=== PATIENT | male | born 1980 | race American Indian/Alaskan Native ===

== ENCOUNTER 2017-01-04 08:26 | Outpatient (CLI) | payer BC ==
[2017-01-04] MEDS ORDERED: XYLOCAINE TOPICAL 4% TP ONE ×2 (09:08→15:01)
== END 2017-01-04 08:27 | disposition home or self-care (01) ==
LOC: WOUND 08:26
PROVIDERS: ATTEND Podiatrist
DX: T25.332A Burn of third degree of left toe(s) (nail), initial encounter (principal); E11.621 Type 2 diabetes mellitus with foot ulcer; L97.522 Non-pressure chronic ulcer of other part of left foot with fat layer exposed; E11.40 Type 2 diabetes mellitus with diabetic neuropathy, unspecified; K21.9 Gastro-esophageal reflux disease without esophagitis; E11.22 Type 2 diabetes mellitus with diabetic chronic kidney disease; I12.0 Hypertensive chronic kidney disease with stage 5 chronic kidney disease or end stage renal disease; N18.6 End stage renal disease; Z99.2 Dependence on renal dialysis; Z86.73 Personal history of transient ischemic attack (TIA), and cerebral infarction without residual deficits; X08.8XXA Exposure to other specified smoke, fire and flames, initial encounter; Y93.9 Activity, unspecified; Y92.9 Unspecified place or not applicable; Y99.9 Unspecified external cause status
CPT/HCPCS: 11042; 87075; 87076; 87116; 87186; G0463; 99205

== ENCOUNTER 2017-01-20 08:01 | Day surgery (SDC) | payer BC ==
[2017-01-17 17:33] LABS: Hematocrit 26.3 % (35.5-45.6); Hemoglobin 8.4 gm/dl (11.8-15.2)
== END 2017-01-20 08:02 | disposition home or self-care (01) ==
LOC: OPU 08:01
PROVIDERS: ATTEND Nurse Practitioner Acute Care
DX: D64.9 Anemia, unspecified (principal); Z53.8 Procedure and treatment not carried out for other reasons
CPT/HCPCS: 36415; 85014; 85018; 86850; 86900; 86901; 86920

== ENCOUNTER 2017-01-28 07:58 | Outpatient (CLI) | payer BC ==
[2017-01-28] MEDS ORDERED: XYLOCAINE TOPICAL 4% TP ONE ×2 (08:24→08:35)
== END 2017-01-28 07:59 | disposition home or self-care (01) ==
LOC: WOUND 07:58
PROVIDERS: ATTEND Podiatrist
DX: E11.621 Type 2 diabetes mellitus with foot ulcer (principal); L97.522 Non-pressure chronic ulcer of other part of left foot with fat layer exposed; L97.523 Non-pressure chronic ulcer of other part of left foot with necrosis of muscle; I96 Gangrene, not elsewhere classified; I10 Essential (primary) hypertension; K21.9 Gastro-esophageal reflux disease without esophagitis; E11.22 Type 2 diabetes mellitus with diabetic chronic kidney disease; I12.0 Hypertensive chronic kidney disease with stage 5 chronic kidney disease or end stage renal disease; N18.6 End stage renal disease; Z99.2 Dependence on renal dialysis; Z89.9 Acquired absence of limb, unspecified; Z86.73 Personal history of transient ischemic attack (TIA), and cerebral infarction without residual deficits
CPT/HCPCS: 97597

== ENCOUNTER 2017-01-30 14:43 | Inpatient (IN) | payer BC ==
[2017-01-30] MEDS ORDERED: ZOFRAN ONE (16:53)
[2017-01-30] MEDS ORDERED: ZOFRAN IV ONE (17:01)
[2017-01-30 17:07] LABS: Basophils % (Auto) 0.6 % (0.0-1.8); Eosinophils % (Auto) 0.2 % (0.0-4.3); Hematocrit 31.4 % (35.5-45.6); Hemoglobin 9.9 gm/dl (11.8-15.2); Mean Corpuscular HGB Conc 32 % (32-34); Mean Corpuscular Hemoglobin 28 pg (28-32); Mean Corpuscular Volume 89 fl (84-94); Platelet Count 239 K/mm3 (140-440); Red Blood Count 3.55 M/mm3 (3.65-5.03); Red Cell Distribution Width 17.3 % (13.2-15.2); White Blood Count 13.7 K/mm3 (4.5-11.0)
[2017-01-30] MEDS ORDERED: APRESOLINE IV ONE (17:24)
[2017-01-30] MEDS ORDERED: DILAUDID IV ONE ×2 (17:24→19:10)
[2017-01-30] MEDS ORDERED: CARAFATE PO ONE (17:24)
[2017-01-30] MEDS ORDERED: BENTYL IM ONE (17:24)
--- NOTE | 2017-01-30 17:25 | Emergency Department Report ---
ED General Adult HPI - General Chief complaint: Abdominal Pain Stated complaint: N/V WEAKNESS Time Seen by Provider: 01/30/17 17:16 Source: patient, RN notes reviewed, old records reviewed Mode of arrival: Stretcher Limitations: No Limitations - History of Present Illness Initial comments: This is a 36-year-old male. He is previously unknown to me. His private certified marine mechanic is this is Dr. Méndez. He typically gets dialysis Tuesday, , Tuesday. His last dialysis session was this past Tuesday. Has a history of hypertension, gastroparesis, diabetes. Also has a history of end-stage renal disease on dialysis. The patient presents to the ER with diffuse abdominal pain, nausea and vomiting. There is no hematemesis, there is no bright red blood per rectum. He denies marijuana consumption. He denies chest pain or shortness of breath. He reports inability to tolerate liquid feeds. No irritative or obstructive urinary symptoms, no testicular pain. Patient reports his symptoms feel like similar prior episodes of gastroparesis. His symptoms typically improve with a medication, nausea medication. -: Gradual Location: abdomen Severity scale (0 -10): 7 Quality: aching Consistency: constant Improves with: medication, rest Worsens with: eating Associated Symptoms: loss of appetite, malaise, nausea/vomiting, weakness - Related Data Home Medications Medication Instructions Recorded Confirmed Last Taken NIFEdipine XL [Procardia Xl] 30 mg PO QDAY 02/23/16 01/30/17 01/12/17 07:00 Insulin Regular, Human [HumuLIN R] 6 unit SQ AC 02/24/16 01/30/17 01/11/17 19:00 3 UNITS Hydralazine HCl [Apresoline TAB] 50 mg PO Q8HR 12/16/16 01/30/17 01/11/17 18:00 ISOSORBIDE MONOnitrate [Imdur ER] 30 mg PO DAILY 12/16/16 01/30/17 01/11/17 18: 00 Insulin Glargine [Lantus VIAL] 40 units SQ QHS 12/16/16 01/30/17 01/11/17 19:00 15UNITS Losartan [Cozaar] 50 mg PO QDAY 12/16/16 01/30/17 01/11/17 12:00 cloNIDine [Clonidine] 1 each TD QWEEK 12/16/16 01/30/17 01/11/17 Vit B Comp&C/Folic Acid/Vit D3 1 each PO QDAY 01/10/17 01/30/17 01/11/17 [Dialyvite 800 Plus D Wafer] Previous Rx's Medication Instructions Recorded Last Taken Type Carvedilol [Coreg] 12.5 mg PO BID #60 tablet 12/21/16 01/12/17 07:00 Rx oxyCODONE /ACETAMINOPHEN [Percocet 1 - 2 tab PO Q4HR #40 tab 01/12/17 Unknown Rx 5/325] Allergies Allergy/AdvReac Type Severity Reaction Status Date / Time No Known Allergies Allergy Verified 11/11/15 14:13 ED Review of Systems ROS: Stated complaint: N/V WEAKNESS Other details as noted in HPI Constitutional: malaise. denies: fever Eyes: denies: vision change ENT: denies: epistaxis Respiratory: denies: cough Cardiovascular: denies: chest pain Gastrointestinal: abdominal pain, nausea, vomiting Genitourinary: denies: urgency, dysuria, frequency Musculoskeletal: denies: back pain Skin: denies: lesions Neurological: denies: weakness ED Past Medical Hx - Past Medical History Hx Hypertension: Yes (Coreg ) Hx CVA: Yes (TIA's) Hx Heart Attack/AMI: Yes Hx Congestive Heart Failure: No Hx Diabetes: Yes Hx Deep Vein Thrombosis: No Hx Pulmonary Embolism: No Hx GERD: No Hx Liver Disease: No Hx Renal Disease: Yes (last dialysis 06/12/17) Hx Arthritis: No Hx Headaches / Migraines: No Hx Seizures: No Hx Kidney Stones: No Hx Psychiatric Treatment: No Hx Asthma: No Hx COPD: No Hx Tuberculosis: No Hx Dementia: No Hx HIV: No Additional medical history: gastroparesis - Surgical History Hx Coronary Stent: No Hx Open Heart Surgery: No Hx Pacemaker: No Hx Internal Defibrillator: No Hx Cholecystectomy: No Hx Appendectomy: No Hx Breast Surgery: No Additional Surgical History: left eye surgery, right toe amputation, right chest vas cath - Social History Smoking Status: Never Smoker Substance Use Type: None - Medications Home Medications: Home Medications Medication Instructions Recorded Confirmed Last Taken Type NIFEdipine XL [Procardia Xl] 30 mg PO QDAY 02/23/16 01/30/17 01/12/17 07:00 History Insulin Regular, Human [HumuLIN R] 6 unit SQ AC 02/24/16 01/30/17 01/11/17 19: 00 History 3 UNITS Hydralazine HCl [Apresoline TAB] 50 mg PO Q8HR 12/16/16 01/30/17 01/11/17 18:00 History ISOSORBIDE MONOnitrate [Imdur ER] 30 mg PO DAILY 12/16/16 01/30/17 01/11/17 18: 00 History Insulin Glargine [Lantus VIAL] 40 units SQ QHS 12/16/16 01/30/17 01/11/17 19:00 History 15UNITS Losartan [Cozaar] 50 mg PO QDAY 12/16/16 01/30/17 01/11/17 12:00 History cloNIDine [Clonidine] 1 each TD QWEEK 12/16/16 01/30/17 01/11/17 History Carvedilol [Coreg] 12.5 mg PO BID #60 tablet 12/21/16 01/30/17 01/12/17 07:00 Rx Vit B Comp&C/Folic Acid/Vit D3 1 each PO QDAY 01/10/17 01/30/17 01/11/17 History [Dialyvite 800 Plus D Wafer] oxyCODONE /ACETAMINOPHEN [Percocet 1 - 2 tab PO Q4HR #40 tab 01/12/17 01/30/17 Unknown Rx 5/325] ED Physical Exam - General Limitations: No Limitations General appearance: alert, in no apparent distress - Head Head exam: Present: atraumatic, normocephalic - Eye Eye exam: Present: normal appearance, EOMI. Absent: nystagmus - ENT ENT exam: Present: normal exam, normal orophraynx, mucous membranes moist, normal external ear exam - Neck Neck exam: Present: normal inspection, full ROM. Absent: tenderness, meningismus - Respiratory Respiratory exam: Present: normal lung sounds bilaterally. Absent: respiratory distress, wheezes, rales, rhonchi, stridor, decreased breath sounds - Cardiovascular Cardiovascular Exam: Present: regular rate, normal rhythm, normal heart sounds. Absent: bradycardia, tachycardia, irregular rhythm, systolic murmur, diastolic murmur, rubs, gallop - GI/Abdominal GI/Abdominal exam: Present: soft, tenderness, normal bowel sounds, other (mild diffuse abdominal tenderness. There is no rebound, guarding or peritoneal signs.). Absent: distended, guarding, rebound, rigid, pulsatile mass - Rectal Rectal exam: Present: deferred - Extremities Exam Extremities exam: Present: full ROM, other (she has chronic necrotic wounds noted to left lower extremity. There is no pus, streaking or cellulitis.). Absent: tenderness, pedal edema, joint swelling, calf tenderness - Back Exam Back exam: Present: normal inspection, full ROM. Absent: tenderness, CVA tenderness (R), CVA tenderness (L), muscle spasm, paraspinal tenderness, vertebral tenderness - Neurological Exam Neurological exam: Present: alert, oriented X3, other (Extraocular movements intact. Tongue midline. No facial droop. Facial sensation intact to light touch in the V1, V2, V3 distribution bilaterally. 5 and 5 strength in 4 extremities.. Sensation is intact to light touch in 4 extremities.). Absent: motor sensory deficit - Psychiatric Psychiatric exam: Present: normal affect, normal mood - Skin Skin exam: Present: warm, dry, intact, normal color. Absent: rash ED Course Vital Signs 01/30/17 01/30/17 01/30/17 16:09 17:03 17:55 Temperature 98.7 F Pulse Rate 100 H 102 H 101 H Respiratory 22 20 Rate Blood Pressure 205/123 184/118 Blood Pressure 204/117 [Left] O2 Sat by Pulse 100 99 Oximetry 01/30/17 19:11 Temperature Pulse Rate 114 H Respiratory 20 Rate Blood Pressure Blood Pressure 184/109 [Left] O2 Sat by Pulse 99 Oximetry - Reevaluation(s) Reevaluation #1: 01/30/17 18:45 Differential diagnosis: Electrolyte imbalance, gastroparesis exacerbation, pancreatitis, hyperglycemia, diabetic ketoacidosis, end-stage renal disease on dialysis, electrolyte arrangement, hypertensive urgency assessment and plan: 36-year-old male with known history of gastroparesis, with probable clinical gastroparesis flare/exacerbation. He is afebrile and quite hypertensive. He was given 2 rounds of nausea medication, one round of pain medication, 1 round of hypertensive medication. He still nauseous and vomiting, and having difficulty tolerating liquid feeds. I will page out to his covering certified marine mechanic to follow to arrange dialysis tomorrow. Patient will require admission for IV fluids, IV antiemetic medication, blood pressure control, and dialysis. 01/30/17 18:45 Reevaluation #2: 01/30/17 18:57 case d/w Dr Méndez, who will follow to arrange dialysis Reevaluation #3: 01/30/17 19:52 Dr Sabillon accepts patient to his service ED Medical Decision Making - Lab Data Result diagrams: 01/30/17 16:56 01/30/17 16:56 Vital Signs 01/30/17 01/30/17 01/30/17 16:09 17:03 17:55 Temperature 98.7 F Pulse Rate 100 H 102 H 101 H Respiratory 22 20 Rate Blood Pressure 205/123 184/118 Blood Pressure 204/117 [Left] O2 Sat by Pulse 100 99 Oximetry Vital Signs 01/30/17 01/30/17 01/30/17 16:09 17:03 17:55 Temperature 98.7 F Pulse Rate 100 H 102 H 101 H Respiratory 22 20 Rate Blood Pressure 205/123 184/118 Blood Pressure 204/117 [Left] O2 Sat by Pulse 100 99 Oximetry Critical care attestation.: If time is entered above; I have spent that time in minutes in the direct care of this critically ill patient, excluding procedure time. ED Disposition Clinical Impression: Accelerated hypertension, Gastroparesis due to DM, ESRD (end stage renal disease), Gastroparesis Disposition: OP ADMITTED IP TO THIS HOSP Is pt being admited?: Yes Does the pt Need Aspirin: No Condition: Good Instructions: Diabetes Mellitus Type 2 in Adults (ED), Hypertension (ED) Referrals: PRIMARY CARE, [Primary Care Provider] - 3-5 Days
[2017-01-30 17:39] LABS: Albumin 3.9 g/dL (3.9-5); Albumin/Globulin Ratio 0.9 %; BUN/Creatinine Ratio 3.93; Bilirubin,Total 0.3 mg/dL (0.1-1.2); Calcium 8.2 mg/dL (8.4-10.2); Chloride 98.4 mmol/L (98-107); Potassium 3.8 mmol/L (3.6-5.0); Total Protein 8.2 g/dL (6.3-8.2)
[2017-01-30] MEDS ORDERED: REGLAN IV ONE (18:27)
[2017-01-30] MEDS ORDERED: PHENERGAN PR ONE ×2 (20:24→20:30)
[2017-01-30] MEDS ORDERED: APRESOLINE ONE (20:38)
[2017-01-30] MEDS ORDERED: MILK OF MAGNESIA PO PRN (22:03)
[2017-01-30] MEDS ORDERED: DULCOLAX PR PRN (22:03)
[2017-01-30] MEDS ORDERED: ZOFRAN IV PRN (22:03)
[2017-01-30] MEDS ORDERED: TYLENOL PO PRN (22:03)
[2017-01-30] MEDS ORDERED: PERCOCET 5/325 PO PRN (22:03)
[2017-01-30] MEDS ORDERED: AMBIEN PO PRN (22:03)
--- NOTE | 2017-01-30 22:03 | History and Physical Report ---
History of Present Illness Date of examination: 01/30/17 Date of admission: 01/30/17 19:53 Chief complaint: Vomiting for 2 days History of present illness: 36 y/o AAM with .Pain is about 8 on a scale 1 to 10.No fever chills Hx of ESRD HTN T2DM and gastroparesis comes in for 2 days of vomiting.Vomited about 6 to 8 times yesterday and 4 times today.Also has moderate to severe abdominal pain Pain is 8 on a scale of 1 to 10.No fever or chills.No sob.No recent travel.Exacerbated by po intake.Relieved bu avoiding food.No recent drugs. Past History Past Medical History: CAD, diabetes, ESRD, GERD, hypertension, other ( Gastroparesis) Past Surgical History: Other (Toe surgery,Rt chest vas cath eye surgery) Social history: lives with family, smoking Family history: hypertension Medications and Allergies Allergies Allergy/AdvReac Type Severity Reaction Status Date / Time No Known Allergies Allergy Verified 11/11/15 14:13 Home Medications Medication Instructions Recorded Confirmed Last Taken Type NIFEdipine XL [Procardia Xl] 30 mg PO QDAY 02/23/16 01/30/17 01/12/17 07:00 History Insulin Regular, Human [HumuLIN R] 6 unit SQ AC 02/24/16 01/30/17 01/11/17 19: 00 History 3 UNITS Hydralazine HCl [Apresoline TAB] 50 mg PO Q8HR 12/16/16 01/30/17 01/11/17 18:00 History ISOSORBIDE MONOnitrate [Imdur ER] 30 mg PO DAILY 12/16/16 01/30/17 01/11/17 18: 00 History Insulin Glargine [Lantus VIAL] 40 units SQ QHS 12/16/16 01/30/17 01/11/17 19:00 History 15UNITS Losartan [Cozaar] 50 mg PO QDAY 12/16/16 01/30/17 01/11/17 12:00 History cloNIDine [Clonidine] 1 each TD QWEEK 12/16/16 01/30/17 01/11/17 History Carvedilol [Coreg] 12.5 mg PO BID #60 tablet 12/21/16 01/30/17 01/12/17 07:00 Rx Vit B Comp&C/Folic Acid/Vit D3 1 each PO QDAY 01/10/17 01/30/17 01/11/17 History [Dialyvite 800 Plus D Wafer] oxyCODONE /ACETAMINOPHEN [Percocet 1 - 2 tab PO Q4HR #40 tab 01/12/17 01/30/17 Unknown Rx 5/325] Review of Systems All systems: negative Constitutional: no weight loss, no weight gain, no fever, no chills Ears, nose, mouth and throat: no nasal congestion, no nasal discharge, no hoarseness, no sore throat Cardiovascular: no chest pain, no orthopnea, no palpitations, no rapid/ irregular heart beat, no edema, no syncope, no lightheadedness, no shortness of breath Respiratory: no cough with sputum, no excessive sputum, no congestion, no wheezing Gastrointestinal: abdominal pain, nausea, vomiting, no diarrhea, no constipation , no change in bowel habits, no hematemesis, no coffee ground emesis, no BRBPR, no melena Genitourinary Male: no dysuria, no hematuria, no flank pain, no discharge, no urinary frequency, no urinary hesitancy Musculoskeletal: no neck stiffness, no neck pain, no muscle weakness, no muscle cramps Integumentary: no rash, no pruritis, no redness, no sores, no wounds, no jaundice Neurological: no paralysis, no seizures, no syncope Psychiatric: no anxiety, no disorientation, no depression Endocrine: no cold intolerance, no heat intolerance, no polyphagia, no excessive thirst, no polydipsia, no polyuria, no nocturia, no excessive sweating Hematologic/Lymphatic: no easy bruising, no easy bleeding Allergic/Immunologic: no urticaria, no allergic rhinitis, no wheezing Exam - Physical Exam Narrative exam: Well developed well nourished male in slight distress sec to abdominal pain - Constitutional Vitals: Temp Pulse Resp BP Pulse Ox 98.7 F 114 H 20 184/109 99 01/30/17 16:09 01/30/17 19:11 01/30/17 20:21 01/30/17 19:11 01/30/17 19:11 General appearance: Present: no acute distress, well-nourished - EENT Eyes: Present: PERRL ENT: hearing intact, clear oral mucosa - Neck Neck: Present: supple, normal ROM - Respiratory Respiratory effort: normal Respiratory: bilateral: CTA - Cardiovascular Heart rate: 80 Rhythm: regular Heart Sounds: Present: S1 & S2. Absent: rub, click - Extremities Extremities: pulses symmetrical, No edema Peripheral Pulses: within normal limits - Abdominal General gastrointestinal: Present: soft, non-tender, non-distended, normal bowel sounds Localized gastrointestinal: tender: epigastric periumbilical (No guardig/ rebound tenderness) Male genitourinary: Present: normal - Rectal Rectal Exam: deferred - Integumentary Integumentary: Present: clear, warm, dry - Musculoskeletal Musculoskeletal: gait normal, strength equal bilaterally - Psychiatric Psychiatric: appropriate mood/affect, intact judgment & insight - Neurologic Neurologic: CNII-XII intact, moves all extremities - Allied Health Allied health notes reviewed: nursing, case management Results - Labs CBC & Chem 7: 01/31/17 05:23 01/31/17 05:23 Labs: Laboratory Last Values WBC 13.7 K/mm3 (4.5-11.0) H 01/30/17 16:56 RBC 3.55 M/mm3 (3.65-5.03) L 01/30/17 16:56 Hgb 9.9 gm/dl (11.8-15.2) L 01/30/17 16:56 Hct 31.4 % (35.5-45.6) L 01/30/17 16:56 MCV 89 fl (84-94) 01/30/17 16:56 MCH 28 pg (28-32) 01/30/17 16:56 MCHC 32 % (32-34) 01/30/17 16:56 RDW 17.3 % (13.2-15.2) H 01/30/17 16:56 Plt Count 239 K/mm3 (140-440) 01/30/17 16:56 Lymph % (Auto) 8.8 % (13.4-35.0) L 01/30/17 16:56 [place] % (Auto) 5.2 % (0.0-7.3) 01/30/17 16:56 Eos % (Auto) 0.2 % (0.0-4.3) 01/30/17 16:56 Baso % (Auto) 0.6 % (0.0-1.8) 01/30/17 16:56 Lymph # 1.2 K/mm3 (1.2-5.4) 01/30/17 16:56 [place] # 0.7 K/mm3 (0.0-0.8) 01/30/17 16:56 Eos # 0.0 K/mm3 (0.0-0.4) 01/30/17 16:56 Baso # 0.1 K/mm3 (0.0-0.1) 01/30/17 16:56 Seg Neutrophils % 85.2 % (40.0-70.0) H 01/30/17 16:56 Seg Neutrophils # 11.7 K/mm3 (1.8-7.7) H 01/30/17 16:56 Sodium 139 mmol/L (137-145) 01/30/17 16:56 Potassium 3.8 mmol/L (3.6-5.0) 01/30/17 16:56 Chloride 98.4 mmol/L (98-107) 01/30/17 16:56 Carbon Dioxide 21 mmol/L (22-30) L 01/30/17 16:56 Anion Gap 23 mmol/L 01/30/17 16:56 BUN 26 mg/dL (9-20) H 01/30/17 16:56 Creatinine 6.6 mg/dL (0.8-1.5) H 01/30/17 16:56 Estimated GFR 12 ml/min 01/30/17 16:56 BUN/Creatinine Ratio 3.93 % 01/30/17 16:56 Glucose 143 mg/dL (75-100) H 01/30/17 16:56 Calcium 8.2 mg/dL (8.4-10.2) L 01/30/17 16:56 Total Bilirubin 0.3 mg/dL (0.1-1.2) 01/30/17 16:56 AST 19 units/L (5-40) 01/30/17 16:56 ALT 9 units/L (7-56) 01/30/17 16:56 Alkaline Phosphatase 92 units/L (35-129) 01/30/17 16:56 Total Protein 8.2 g/dL (6.3-8.2) 01/30/17 16:56 Albumin 3.9 g/dL (3.9-5) 01/30/17 16:56 Albumin/Globulin Ratio 0.9 % 01/30/17 16:56 Lipase 35 units/L (13-60) 01/30/17 16:56 Short CBC 01/30/17 01/31/17 Range/Units 16:56 05:23 WBC 13.7 H 13.9 H (4.5-11.0) K/mm3 Hgb 9.9 L 8.9 L (11.8-15.2) gm/dl Hct 31.4 L 28.1 L (35.5-45.6) % Plt Count 239 234 (140-440) K/mm3 BMP 01/30/17 01/31/17 16:56 05:23 Sodium 139 142 Potassium 3.8 4.1 Chloride 98.4 101.2 Carbon Dioxide 21 L 19 L BUN 26 H 34 H Creatinine 6.6 H 7.8 H Glucose 143 H 227 H Calcium 8.2 L 7.6 L Liver Function 01/30/17 01/31/17 Range/Units 16:56 05:23 Total Bilirubin 0.3 0.3 (0.1-1.2) mg/dL AST 19 17 (5-40) units/L ALT 9 8 (7-56) units/L Alkaline Phosphatase 92 82 (35-129) units/L Albumin 3.9 3.3 L (3.9-5) g/dL - Imaging and Cardiology EKG: report reviewed Assessment and Plan Advance Directives: Yes (Full code) VTE prophylaxis?: Chemical Plan of care discussed with patient/family: Yes - Patient Problems (1) Hypertensive emergency Current Visit: Yes Status: Acute Plan to address problem: Cont his Home meds and Hydralazine 10 mg q3 prn IV. Sec to abd pain and vomiting. (2) Gastroparesis Current Visit: Yes Status: Acute Plan to address problem: Cont Zofran and reglan (3) IDDM (insulin dependent diabetes mellitus) Current Visit: Yes Status: Chronic Plan to address problem: Cont lantus and coverage (4) ESRD (end stage renal disease) Current Visit: Yes Status: Chronic Plan to address problem: Cont HD.Nephrology consulted (5) HTN (hypertension) Current Visit: Yes Status: Chronic Qualifiers: Hypertension type: essential hypertension Qualified Code(s): I10 - Essential (primary) hypertension Plan to address problem: REsume Home meds (6) GERD (gastroesophageal reflux disease) Current Visit: Yes Status: Chronic Qualifiers: Esophagitis presence: with esophagitis Qualified Code(s): K21.0 - Gastro- esophageal reflux disease with esophagitis Plan to address problem: Cont PPi's (7) Anemia Current Visit: Yes Status: Chronic Qualifiers: Anemia type: A Iron deficiency anemia type: I Vitamin B12 deficiency anemia type: V Folate deficiency anemia type: F Bone marrow failure anemia type: B Hemolytic anemia type: H Other causes of anemia: chronic disease, kidney Qualified Code(s): N18.9 - Chronic kidney disease, unspecified; D63.1 - Anemia in chronic kidney disease Plan to address problem: Anemia of chronic disease (8) DVT prophylaxis Current Visit: Yes Status: Acute Plan to address problem: On Heparin
[2017-01-30] MEDS ORDERED: D5NS 1,000 ML IV SCH (23:00)
[2017-01-31] MEDS ORDERED: APRESOLINE IV PRN (01:19)
[2017-01-31] MEDS: ZOFRAN IV PRN ×3 (01:35→16:15)
[2017-01-31] MEDS: DILAUDID IV PRN ×4 (02:18→21:35)
[2017-01-31 06:33] LABS: Hematocrit 28.1 % (35.5-45.6); Hemoglobin 8.9 gm/dl (11.8-15.2); Mean Corpuscular HGB Conc 32 % (32-34); Mean Corpuscular Hemoglobin 28 pg (28-32); Mean Corpuscular Volume 89 fl (84-94); Platelet Count 234 K/mm3 (140-440); Red Blood Count 3.17 M/mm3 (3.65-5.03); Red Cell Distribution Width 17.2 % (13.2-15.2); White Blood Count 13.9 K/mm3 (4.5-11.0)
[2017-01-31 06:45] LABS: Albumin 3.3 g/dL (3.9-5); Albumin/Globulin Ratio 0.9 %; BUN/Creatinine Ratio 4.35; Bilirubin,Total 0.3 mg/dL (0.1-1.2); Calcium 7.6 mg/dL (8.4-10.2); Chloride 101.2 mmol/L (98-107); Potassium 4.1 mmol/L (3.6-5.0); Total Protein 7.1 g/dL (6.3-8.2)
[2017-01-31] MEDS ORDERED: NON-FORMULARY (Hydralazine Hcl [Apresoline Tab] 50 MG) PO SCH (07:30)
[2017-01-31] MEDS ORDERED: NOVOLOG SUB-Q SCH (07:30)
[2017-01-31 08:06] LABS: Basophils % (Manual) 0 % (0.0-1.8); Blastocytes % (Manual) 0 %; Eosinophils % (Manual) 0 % (0.0-4.3); Hypochromasia Few; Ovalocytes Few
[2017-01-31 08:07] LABS: Diff Status Complete
--- NOTE | 2017-01-31 08:24 | Admit Criteria Form ---
Admission Criteria Documentation: HYPERTENSION Clinical Indications for Admission to Inpatient Care ( Place "X" for any and all applicable criteria): Admission is indicated for ANY ONE of the following(1)(2)(3)(4): [ ]I. Hypertensive emergency, with evidence of acute and progressing target organ disease as indicated by ANY ONE of the following: [ ]a) Hypertensive encephalopathy (eg, confusion, altered mental status) [ ]b) Cerebral infarction [ ]c) Intracranial hemorrhage [ ]d) Myocardial ischemia or infarction [ ]e) Pulmonary edema [ ]f) Aortic dissection [ ]g) Seizure [ ]h) Acute renal insufficiency [ ]i) Papilledema [ ]j) Microangiopathic hemolytic anemia [ ]II. Adrenergic crisis (eg, severe hypertension due to pheochromocytoma crisis, cocaine or amphetamine intoxication, or clonidine withdrawal) [X]III. Severe hypertension (SBP greater than 180 mmHg or DBP greater than 110 mmHg or greater than the 95th percentile for age, gender, and height in pediatric patients) that cannot be controlled (eg, to SBP less than 160 mmHg and DBP less than 100 mmHg in adults) by treatment with oral medication in emergency department or observation care Extended stay beyond goal length of stay may be needed for(11)(12)(13): [ ]a) Persistent hypertensive encephalopathy [ ]b) Continuation of pulmonary edema [ ]c) Recurring or persistent severe hypertension [ ]d) Target organ damage (eg, angina, stroke, aortic dissection) [ ]e) Associated renal insufficiency The original [employer] content created by [employer] has been revised. The portions of the content which have been revised are identified through the use of italic text or in bold, and [facility] has neither reviewed nor approved the modified material. All other unmodified content is copyright [employer] [facility]. Please see references footnoted in the original [employer] [facility] edition 2016 Admission Criteria Met: Yes
[2017-01-31] MEDS ORDERED: COREG PO SCH (10:00)
[2017-01-31] MEDS ORDERED: NON-FORMULARY (Vit B Comp&C/Folic Acid/Vit D3 [Dialyvite 800 Plus D Wafer] 1 EACH) PO SCH (10:00)
[2017-01-31] MEDS ORDERED: CATAPRES-TTS PATCH TD SCH (10:00)
[2017-01-31] MEDS: LOVENOX SUB-Q SCH (10:21)
[2017-01-31] MEDS ORDERED: NACL 0.9% 100 ML IV PRN (10:30)
--- NOTE | 2017-01-31 10:30 | Consultation ---
History of Present Illness - History of Present Illness Thanks for the consult A/P ESRD Accel HTN Gastroparesis flare On opiates Anemia FRED with HD if SBP under 160 DM long standing poorly controlled Adjust BP meds Will follow Past History Past Medical History: CAD, diabetes, ESRD, GERD, hypertension, other ( Gastroparesis) Past Surgical History: Other (Toe surgery,Rt chest vas cath eye surgery) Social history: lives with family, smoking Family history: hypertension Medications and Allergies Allergies Allergy/AdvReac Type Severity Reaction Status Date / Time No Known Allergies Allergy Verified 11/11/15 14:13 Home Medications Medication Instructions Recorded Confirmed Last Taken Type NIFEdipine XL [Procardia Xl] 30 mg PO QDAY 02/23/16 01/30/17 01/12/17 07:00 History Insulin Regular, Human [HumuLIN R] 6 unit SQ AC 02/24/16 01/30/17 01/11/17 19: 00 History 3 UNITS Hydralazine HCl [Apresoline TAB] 50 mg PO Q8HR 12/16/16 01/30/17 01/11/17 18:00 History ISOSORBIDE MONOnitrate [Imdur ER] 30 mg PO DAILY 12/16/16 01/30/17 01/11/17 18: 00 History Insulin Glargine [Lantus VIAL] 40 units SQ QHS 12/16/16 01/30/17 01/11/17 19:00 History 15UNITS Losartan [Cozaar] 50 mg PO QDAY 12/16/16 01/30/17 01/11/17 12:00 History cloNIDine [Clonidine] 1 each TD QWEEK 12/16/16 01/30/17 01/11/17 History Carvedilol [Coreg] 12.5 mg PO BID #60 tablet 12/21/16 01/30/17 01/12/17 07:00 Rx Vit B Comp&C/Folic Acid/Vit D3 1 each PO QDAY 01/10/17 01/30/17 01/11/17 History [Dialyvite 800 Plus D Wafer] oxyCODONE /ACETAMINOPHEN [Percocet 1 - 2 tab PO Q4HR #40 tab 01/12/17 01/30/17 Unknown Rx 5/325] Active Meds: Active Medications Acetaminophen (Tylenol) 650 mg PO Q4H PRN PRN Reason: Pain MILD(1-3)/Fever >100.5/SOARES Bisacodyl (Dulcolax) 10 mg GA QDAY PRN PRN Reason: Constipation unrelieved by MOM Carvedilol (Coreg) 12.5 mg PO BID [facility] Clonidine HCl (Catapres-Tts Patch) mg TD QWEEK [facility] Enoxaparin Sodium (Lovenox) 30 mg SUB-Q QDAY SANDRINE Last Admin: 01/31/17 10:21 Dose: 30 mg Hydralazine HCl (Apresoline) 10 mg IV Q6H PRN PRN Reason: Hypertension Last Admin: 01/30/17 20:37 Dose: 10 mg Hydralazine HCl (Apresoline) 50 mg PO Q8HR SANDRINE Hydromorphone HCl (Dilaudid) 1 mg IV Q3H PRN PRN Reason: Pain , Severe (7-10) Last Admin: 01/31/17 06:57 Dose: 1 mg Insulin Aspart (Novolog) 0 units SUB-Q ACHS SANDRINE PRN Reason: Protocol Last Admin: 01/31/17 08:32 Dose: 2 units Insulin Detemir (Levemir) 40 units SUB-Q QHS [facility] Isosorbide Mononitrate (Imdur) 30 mg PO DAILY [facility] Losartan Potassium (Cozaar) 50 mg PO QDAY [facility] Magnesium Hydroxide (Milk Of Magnesia) 30 ml PO Q4H PRN PRN Reason: Constipation Metoclopramide HCl (Reglan) 10 mg IV Q6H PRN PRN Reason: Nausea And Vomiting Nifedipine (Procardia Xl) 30 mg PO QDAY [facility] Ondansetron HCl (Zofran) 4 mg IV Q3H PRN PRN Reason: Nausea And Vomiting Last Admin: 01/31/17 01:35 Dose: 4 mg Oxycodone/Acetaminophen (Percocet 5/325) 1 tab PO Q4HR [facility] Vitamin B Complex/Vitamin C ([place] With C) 1 each PO QDAY [facility] Zolpidem Tartrate (Ambien) 5 mg PO QHS PRN PRN Reason: Insomnia Exam - Vital Signs Vital signs: Vital Signs Temp Pulse Resp BP Pulse Ox 98.7 F 100 H 22 205/123 100 01/30/17 16:09 01/30/17 16:09 01/30/17 16:09 01/30/17 16:09 01/30/17 16:09 Results - Lab Results 01/31/17 05:23 01/31/17 05:23 Most recent lab results Calcium 7.6 mg/dL (8.4-10.2) L 01/31/17 05:23
[2017-01-31] MEDS: PERCOCET 5/325 PO SCH ×3 (10:32→18:45)
[2017-01-31] MEDS: COZAAR PO SCH (10:32)
[2017-01-31] MEDS: IMDUR PO SCH (10:32)
[2017-01-31] MEDS: ALLBEE WITH C PO SCH (10:33)
[2017-01-31] MEDS: PROCARDIA XL PO SCH (10:33)
--- NOTE | 2017-01-31 12:30 | Event Note ---
Date: 01/31/17 This pt is a 36 yo AAM admitted with N/V with suspected gastroparesis. Pt is Afebrile with a leukocytosis of 13.9. Pt known to our service and s/p a RUE AVG placed 01/12/17. We were asked to eval the pt's avg maturity. AVG has been in place approximately 3 weeks, and has s good thrill. Okay to use avg for HD.
[2017-01-31] MEDS ORDERED: APRESOLINE PO SCH (14:00)
--- NOTE | 2017-01-31 14:13 | Progress Note ---
Assessment and Plan Assessment and plan: Patient is a 36-year-old male with a history of end-stage renal disease, hypertension, type 2 diabetes mellitus and gastroparesis with recurrent hospital admissions for abdominal pain and cyclical intractable vomiting. Whenever this occurs his blood pressure start. And becomes very difficult to control. In the past and was started on nortriptyline and did well with a combination of that Reglan. H Presents to the hospital again today with nausea vomiting. 2 days having 6-10 episodes of bilious vomiting. Prior GI workup has been unremarkable. He is s/p a RUE AVG placed 01/12/17 * Hypertensive emergency secondary to poor by mouth intake * End-stage renal disease * Diabetic gastroparesis * Uncontrolled diabetes mellitus insulin-dependent * Chronic opiate use * Anemia secondary to renal disease * Abdominal pain * metabolic acidosis * Leukocytosis likely reactive Plan * Continue current therapy, control blood pressure and pain. We will reinstitute nortriptyline. * Continue blood sugar control * Nephrology and vascular inputs noted in consultation from GI * okay is AVG per vascular * DVT and GI prophylaxis * If Metabolic acidosis is not improving transition to fluids with bicarbonate History Interval history: Follow-up intractable nausea and vomiting Patient seen and examined this morning continues to vomit bilious emesis noted. Reports generalized abdominal pain. Denies any shortness of breath cough dizziness or chest pain. unable to Keep food down for 2 days. Abdominal pain rated as 7/10 intensity with no alleviation. No radiation. No other adverse effects reported to me by nursing staff Hospitalist Physical - Physical exam Narrative exam: VITAL SIGNS: Reviewed. GENERAL: The patient appeared well nourished and normally developed. Vital signs as documented. HEAD: No signs of head trauma. EYES: Pupils are equal. Extraocular motions intact. EARS: Hearing grossly intact. MOUTH: Oropharynx is normal. NECK: No adenopathy, no JVD. CHEST: Chest with clear breath sounds bilaterally. No wheezes, rales, or rhonchi. CARDIAC: Regular rate and rhythm. S1 and S2, without murmurs, gallops, or rubs. VASCULAR: No Edema. Peripheral pulses normal and equal in all extremities. ABDOMEN: Soft, tender. No sign of distention. No rebound or guarding, and no masses palpated. Bowel Sounds normal. MUSCULOSKELETAL: Good range of motion of all major joints. Extremities without clubbing, cyanosis or edema. NEUROLOGIC EXAM: Alert and oriented x 3. No focal sensory or strength deficits. Speech normal. Follows commands. PSYCHIATRIC: Mood normal. SKIN: No rash or lesions. - Constitutional Vitals: Temp Pulse Resp BP Pulse Ox 98.7 F 110 H 20 178/88 95 01/31/17 07:20 01/31/17 07:20 01/31/17 12:53 01/31/17 07:20 01/31/17 07:20 General appearance: Present: no acute distress, well-nourished Results - Labs CBC & Chem 7: 01/31/17 05:23 01/31/17 05:23 Labs: Laboratory Last Values WBC 13.9 K/mm3 (4.5-11.0) H 01/31/17 05:23 RBC 3.17 M/mm3 (3.65-5.03) L 01/31/17 05:23 Hgb 8.9 gm/dl (11.8-15.2) L 01/31/17 05:23 Hct 28.1 % (35.5-45.6) L 01/31/17 05:23 MCV 89 fl (84-94) 01/31/17 05:23 MCH 28 pg (28-32) 01/31/17 05:23 MCHC 32 % (32-34) 01/31/17 05:23 RDW 17.2 % (13.2-15.2) H 01/31/17 05:23 Plt Count 234 K/mm3 (140-440) 01/31/17 05:23 Lymph % (Auto) 8.8 % (13.4-35.0) L 01/30/17 16:56 [place] % (Auto) 5.2 % (0.0-7.3) 01/30/17 16:56 Eos % (Auto) 0.2 % (0.0-4.3) 01/30/17 16:56 Baso % (Auto) 0.6 % (0.0-1.8) 01/30/17 16:56 Lymph # 1.2 K/mm3 (1.2-5.4) 01/30/17 16:56 [place] # 0.7 K/mm3 (0.0-0.8) 01/30/17 16:56 Eos # 0.0 K/mm3 (0.0-0.4) 01/30/17 16:56 Baso # 0.1 K/mm3 (0.0-0.1) 01/30/17 16:56 Add Manual Diff Complete 01/31/17 05:23 Total Counted 100 01/31/17 05:23 Seg Neutrophils % Doctor Of Nurse Anesthesia 01/31/17 05:23 Seg Neuts % (Manual) 85.0 % (40.0-70.0) H 01/31/17 05:23 Band Neutrophils % 2.0 % 01/31/17 05:23 Lymphocytes % (Manual) 7.0 % (13.4-35.0) L 01/31/17 05:23 Reactive Lymphs % (Man) 0 % 01/31/17 05:23 Monocytes % (Manual) 6.0 % (0.0-7.3) 01/31/17 05:23 Eosinophils % (Manual) 0 % (0.0-4.3) 01/31/17 05:23 Basophils % (Manual) 0 % (0.0-1.8) 01/31/17 05:23 Metamyelocytes % 0 % 01/31/17 05:23 Myelocytes % 0 % 01/31/17 05:23 Promyelocytes % 0 % 01/31/17 05:23 Blast Cells % 0 % 01/31/17 05:23 Nucleated RBC % Not Reportable 01/31/17 05:23 Seg Neutrophils # 11.7 K/mm3 (1.8-7.7) H 01/30/17 16:56 Seg Neutrophils # Man 11.8 K/mm3 (1.8-7.7) H 01/31/17 05:23 Band Neutrophils # 0.3 K/mm3 01/31/17 05:23 Lymphocytes # (Manual) 1.0 K/mm3 (1.2-5.4) L 01/31/17 05:23 Abs React Lymphs (Man) 0.0 K/mm3 01/31/17 05:23 Monocytes # (Manual) 0.8 K/mm3 (0.0-0.8) 01/31/17 05:23 Eosinophils # (Manual) 0.0 K/mm3 (0.0-0.4) 01/31/17 05:23 Basophils # (Manual) 0.0 K/mm3 (0.0-0.1) 01/31/17 05:23 Metamyelocytes # 0.0 K/mm3 01/31/17 05:23 Myelocytes # 0.0 K/mm3 01/31/17 05:23 Promyelocytes # 0.0 K/mm3 01/31/17 05:23 Blast Cells # 0.0 K/mm3 01/31/17 05:23 WBC Morphology Not Reportable 01/31/17 05:23 Hypersegmented Neuts Not Reportable 01/31/17 05:23 Hyposegmented Neuts Not Reportable 01/31/17 05:23 Hypogranular Neuts Not Reportable 01/31/17 05:23 Smudge Cells Not Reportable 01/31/17 05:23 Toxic Granulation Not Reportable 01/31/17 05:23 Toxic Vacuolation Not Reportable 01/31/17 05:23 Dohle Bodies Not Reportable 01/31/17 05:23 Pelger-Huet Anomaly Not Reportable 01/31/17 05:23 Kate Rods Not Reportable 01/31/17 05:23 Platelet Estimate Appears normal 01/31/17 05:23 Clumped Platelets Not Reportable 01/31/17 05:23 Plt Clumps, EDTA Not Reportable 01/31/17 05:23 Large Platelets Not Reportable 01/31/17 05:23 Giant Platelets Not Reportable 01/31/17 05:23 Platelet Satelliting Not Reportable 01/31/17 05:23 Plt Morphology Comment Not Reportable 01/31/17 05:23 RBC Morphology Not Reportable 01/31/17 05:23 Dimorphic RBCs Not Reportable 01/31/17 05:23 Polychromasia Not Reportable 01/31/17 05:23 Hypochromasia Few 01/31/17 05:23 Poikilocytosis Not Reportable 01/31/17 05:23 Anisocytosis Not Reportable 01/31/17 05:23 Microcytosis Not Reportable 01/31/17 05:23 Macrocytosis Not Reportable 01/31/17 05:23 Spherocytes Not Reportable 01/31/17 05:23 Pappenheimer Bodies Not Reportable 01/31/17 05:23 Sickle Cells Not Reportable 01/31/17 05:23 Target Cells Not Reportable 01/31/17 05:23 Tear Drop Cells Not Reportable 01/31/17 05:23 Ovalocytes Few 01/31/17 05:23 Helmet Cells Not Reportable 01/31/17 05:23 [place] Bodies Not Reportable 01/31/17 05:23 [place] Rings Not Reportable 01/31/17 05:23 [place] Cells Not Reportable 01/31/17 05:23 Bite Cells Not Reportable 01/31/17 05:23 Crenated Cell Not Reportable 01/31/17 05:23 Elliptocytes Not Reportable 01/31/17 05:23 Acanthocytes (Spur) Not Reportable 01/31/17 05:23 Rouleaux Not Reportable 01/31/17 05:23 Hemoglobin C Crystals Not Reportable 01/31/17 05:23 Schistocytes Not Reportable 01/31/17 05:23 Malaria parasites Not Reportable 01/31/17 05:23 Fredi Bodies Not Reportable 01/31/17 05:23 Hem Pathologist Commnt No 01/31/17 05:23 Sodium 142 mmol/L (137-145) 01/31/17 05:23 Potassium 4.1 mmol/L (3.6-5.0) 01/31/17 05:23 Chloride 101.2 mmol/L (98-107) 01/31/17 05:23 Carbon Dioxide 19 mmol/L (22-30) L 01/31/17 05:23 Anion Gap 26 mmol/L 01/31/17 05:23 BUN 34 mg/dL (9-20) H 01/31/17 05:23 Creatinine 7.8 mg/dL (0.8-1.5) H 01/31/17 05:23 Estimated GFR 10 ml/min 01/31/17 05:23 BUN/Creatinine Ratio 4.35 % 01/31/17 05:23 Glucose 227 mg/dL (75-100) H 01/31/17 05:23 POC Glucose 221 (70-105) H 01/31/17 11:25 Calcium 7.6 mg/dL (8.4-10.2) L 01/31/17 05:23 Total Bilirubin 0.3 mg/dL (0.1-1.2) 01/31/17 05:23 AST 17 units/L (5-40) 01/31/17 05:23 ALT 8 units/L (7-56) 01/31/17 05:23 Alkaline Phosphatase 82 units/L (35-129) 01/31/17 05:23 Total Protein 7.1 g/dL (6.3-8.2) 01/31/17 05:23 Albumin 3.3 g/dL (3.9-5) L 01/31/17 05:23 Albumin/Globulin Ratio 0.9 % 01/31/17 05:23 Lipase 35 units/L (13-60) 01/30/17 16:56
[2017-01-31] MEDS ORDERED: NACL 0.9 (PRIMING MACHINE ONLY DIALYSIS) MC ONE ×2 (16:09→17:53)
[2017-01-31] MEDS: CATAPRES-TTS PATCH TD SCH (18:43)
[2017-01-31] MEDS: NOVOLOG SUB-Q SCH (18:44)
--- NOTE | 2017-01-31 19:08 | Post Operative Note ---
Pre-op diagnosis: foreign body Post-op diagnosis: same Findings: Flex: noted foreign material tip of ostomy. - material grasped and despite moderate force and use of grasp forceps unable to be removed - object metal in nature, again unable to be removed and unable to be pushed back into colon - procedure terminated Procedure: flex Anesthesia: MAC Surgeon: KRUPA ACEVEDO Estimated blood loss: none Condition: stable Disposition: floor
[2017-01-31] MEDS: HEPARIN IV PRN (19:25)
[2017-01-31] MEDS: APRESOLINE IV PRN (21:25)
[2017-01-31] MEDS: REGLAN IV PRN (21:30)
[2017-01-31] MEDS: LEVEMIR SUB-Q SCH (21:43)
[2017-01-31] MEDS ORDERED: NON-FORMULARY (Insulin Glargine 40 UNITS) SQ SCH (22:00)
[2017-02-01] MEDS: ZOFRAN IV PRN ×4 (00:15→18:33)
[2017-02-01] MEDS: PERCOCET 5/325 PO SCH ×6 (00:30→18:00)
[2017-02-01] MEDS: PAMELOR PO SCH (00:31)
[2017-02-01] MEDS: DILAUDID IV PRN ×6 (02:00→21:40)
[2017-02-01] MEDS: NOVOLOG SUB-Q SCH ×4 (02:10→18:00)
[2017-02-01] MEDS: REGLAN IV PRN ×2 (05:28→21:41)
[2017-02-01 07:01] LABS: Hematocrit 32.6 % (35.5-45.6); Hemoglobin 10.3 gm/dl (11.8-15.2); Mean Corpuscular HGB Conc 32 % (32-34); Mean Corpuscular Hemoglobin 28 pg (28-32); Mean Corpuscular Volume 88 fl (84-94); Platelet Count 208 K/mm3 (140-440); Red Blood Count 3.69 M/mm3 (3.65-5.03); Red Cell Distribution Width 17.4 % (13.2-15.2); White Blood Count 14.6 K/mm3 (4.5-11.0)
[2017-02-01 07:23] LABS: BUN/Creatinine Ratio 3.63; Calcium 8.7 mg/dL (8.4-10.2); Chloride 96.4 mmol/L (98-107); Potassium 3.9 mmol/L (3.6-5.0)
--- NOTE | 2017-02-01 09:42 | Progress Note ---
Assessment and Plan end-stage renal disease patient is currently in maintenance hemodialysis on Tuesday schedule Patient currently does have a functioning graft of his right arm that can be used with 2 needle 17 days each would like to avoid using his catheter Graft has been used successfully for at least 3-4 times his catheter can be removed from his chest which could be one potential source of infection Gastroparesis flare currently being treated and followed by gastroenterology service Accelerated hypertension requires better control close monitoring adjustment of medications Continue to monitor dialysis-related labs We'll continue to follow neck recommendation from renal standpoint Objective - Vital Signs Vital signs: Vital Signs - 12hr 01/31/17 01/31/17 02/01/17 22:00 23:35 08:00 Temperature 99.4 F 99.2 F Pulse Rate [ 112 H 115 H 112 H Left Brachial] Respiratory 16 20 20 Rate Blood Pressure 152/80 148/81 [Left Arm] O2 Sat by Pulse 99 95 96 Oximetry - General Appearance General appearance: well-developed EENT: mucous membranes moist Neck: no JVD Respiratory: Present: Clear to Ascultation Cardiology: regular Gastrointestinal: normal Integumentary: no rash Neurologic: no focal deficit - Lab 02/01/17 06:12 02/01/17 06:12 Most recent lab results Calcium 8.7 mg/dL (8.4-10.2) 02/01/17 06:12
[2017-02-01] MEDS: PROCARDIA XL PO SCH (10:00)
[2017-02-01] MEDS: LOVENOX SUB-Q SCH (10:00)
[2017-02-01] MEDS: ALLBEE WITH C PO SCH (10:00)
[2017-02-01] MEDS: IMDUR PO SCH (10:00)
[2017-02-01] MEDS: COZAAR PO SCH (10:00)
[2017-02-01] MEDS: CATAPRES-TTS PATCH TD SCH (10:30)
--- NOTE | 2017-02-01 14:03 | Progress Note ---
Assessment and Plan - Patient Problems (1) Gastroparesis due to DM Current Visit: Yes Status: Acute Plan to address problem: GI consulted, continue current therapy, ambulate TID,and PRN, bowel rest, diet as tolerated. (2) Accelerated hypertension Current Visit: Yes Status: Acute Plan to address problem: monitor BP q shift, supportive care, (3) ESRD (end stage renal disease) Current Visit: Yes Status: Chronic Plan to address problem: Nephrology consulted, dialysis as per renal team. (4) DVT prophylaxis Current Visit: Yes Status: Acute History Interval history: Pt lying in bed, Pt states that he is still nauseated, and has persistent vomiting. No changes overnight. Pt denies pain. Hospitalist Physical - Constitutional Vitals: Temp Pulse Resp BP Pulse Ox 99.2 F 112 H 20 148/81 96 02/01/17 08:00 02/01/17 08:00 02/01/17 08:00 02/01/17 08:00 02/01/17 08:00 General appearance: Present: no acute distress, well-nourished, obese - EENT Eyes: Present: PERRL ENT: hearing intact - Neck Neck: Present: supple - Respiratory Respiratory: bilateral: CTA - Cardiovascular Rhythm: regular Heart Sounds: Present: S1 & S2 - Extremities Extremities: no ischemia Peripheral Pulses: within normal limits - Abdominal General gastrointestinal: soft, non-distended, normal bowel sounds, no hepatomegaly, no splenomegaly, no mass, no hernia - Integumentary Integumentary: Present: clear, dry - Psychiatric Psychiatric: appropriate mood/affect - Neurologic Neurologic: CNII-XII intact Results - Labs CBC & Chem 7: 02/01/17 06:12 02/01/17 06:12 Labs: Laboratory Last Values WBC 14.6 K/mm3 (4.5-11.0) H 02/01/17 06:12 RBC 3.69 M/mm3 (3.65-5.03) 02/01/17 06:12 Hgb 10.3 gm/dl (11.8-15.2) L 02/01/17 06:12 Hct 32.6 % (35.5-45.6) L 02/01/17 06:12 MCV 88 fl (84-94) 02/01/17 06:12 MCH 28 pg (28-32) 02/01/17 06:12 MCHC 32 % (32-34) 02/01/17 06:12 RDW 17.4 % (13.2-15.2) H 02/01/17 06:12 Plt Count 208 K/mm3 (140-440) 02/01/17 06:12 Lymph % (Auto) 8.8 % (13.4-35.0) L 01/30/17 16:56 [place] % (Auto) 5.2 % (0.0-7.3) 01/30/17 16:56 Eos % (Auto) 0.2 % (0.0-4.3) 01/30/17 16:56 Baso % (Auto) 0.6 % (0.0-1.8) 01/30/17 16:56 Lymph # 1.2 K/mm3 (1.2-5.4) 01/30/17 16:56 [place] # 0.7 K/mm3 (0.0-0.8) 01/30/17 16:56 Eos # 0.0 K/mm3 (0.0-0.4) 01/30/17 16:56 Baso # 0.1 K/mm3 (0.0-0.1) 01/30/17 16:56 Add Manual Diff Complete 01/31/17 05:23 Total Counted 100 01/31/17 05:23 Seg Neutrophils % Facility Technician 01/31/17 05:23 Seg Neuts % (Manual) 85.0 % (40.0-70.0) H 01/31/17 05:23 Band Neutrophils % 2.0 % 01/31/17 05:23 Lymphocytes % (Manual) 7.0 % (13.4-35.0) L 01/31/17 05:23 Reactive Lymphs % (Man) 0 % 01/31/17 05:23 Monocytes % (Manual) 6.0 % (0.0-7.3) 01/31/17 05:23 Eosinophils % (Manual) 0 % (0.0-4.3) 01/31/17 05:23 Basophils % (Manual) 0 % (0.0-1.8) 01/31/17 05:23 Metamyelocytes % 0 % 01/31/17 05:23 Myelocytes % 0 % 01/31/17 05:23 Promyelocytes % 0 % 01/31/17 05:23 Blast Cells % 0 % 01/31/17 05:23 Nucleated RBC % Not Reportable 01/31/17 05:23 Seg Neutrophils # 11.7 K/mm3 (1.8-7.7) H 01/30/17 16:56 Seg Neutrophils # Man 11.8 K/mm3 (1.8-7.7) H 01/31/17 05:23 Band Neutrophils # 0.3 K/mm3 01/31/17 05:23 Lymphocytes # (Manual) 1.0 K/mm3 (1.2-5.4) L 01/31/17 05:23 Abs React Lymphs (Man) 0.0 K/mm3 01/31/17 05:23 Monocytes # (Manual) 0.8 K/mm3 (0.0-0.8) 01/31/17 05:23 Eosinophils # (Manual) 0.0 K/mm3 (0.0-0.4) 01/31/17 05:23 Basophils # (Manual) 0.0 K/mm3 (0.0-0.1) 01/31/17 05:23 Metamyelocytes # 0.0 K/mm3 01/31/17 05:23 Myelocytes # 0.0 K/mm3 01/31/17 05:23 Promyelocytes # 0.0 K/mm3 01/31/17 05:23 Blast Cells # 0.0 K/mm3 01/31/17 05:23 WBC Morphology Not Reportable 01/31/17 05:23 Hypersegmented Neuts Not Reportable 01/31/17 05:23 Hyposegmented Neuts Not Reportable 01/31/17 05:23 Hypogranular Neuts Not Reportable 01/31/17 05:23 Smudge Cells Not Reportable 01/31/17 05:23 Toxic Granulation Not Reportable 01/31/17 05:23 Toxic Vacuolation Not Reportable 01/31/17 05:23 Dohle Bodies Not Reportable 01/31/17 05:23 Pelger-Huet Anomaly Not Reportable 01/31/17 05:23 Kate Rods Not Reportable 01/31/17 05:23 Platelet Estimate Appears normal 01/31/17 05:23 Clumped Platelets Not Reportable 01/31/17 05:23 Plt Clumps, EDTA Not Reportable 01/31/17 05:23 Large Platelets Not Reportable 01/31/17 05:23 Giant Platelets Not Reportable 01/31/17 05:23 Platelet Satelliting Not Reportable 01/31/17 05:23 Plt Morphology Comment Not Reportable 01/31/17 05:23 RBC Morphology Not Reportable 01/31/17 05:23 Dimorphic RBCs Not Reportable 01/31/17 05:23 Polychromasia Not Reportable 01/31/17 05:23 Hypochromasia Few 01/31/17 05:23 Poikilocytosis Not Reportable 01/31/17 05:23 Anisocytosis Not Reportable 01/31/17 05:23 Microcytosis Not Reportable 01/31/17 05:23 Macrocytosis Not Reportable 01/31/17 05:23 Spherocytes Not Reportable 01/31/17 05:23 Pappenheimer Bodies Not Reportable 01/31/17 05:23 Sickle Cells Not Reportable 01/31/17 05:23 Target Cells Not Reportable 01/31/17 05:23 Tear Drop Cells Not Reportable 01/31/17 05:23 Ovalocytes Few 01/31/17 05:23 Helmet Cells Not Reportable 01/31/17 05:23 Bust[place] Bodies Not Reportable 01/31/17 05:23 [place] Rings Not Reportable 01/31/17 05:23 [place] Cells Not Reportable 01/31/17 05:23 Bite Cells Not Reportable 01/31/17 05:23 Crenated Cell Not Reportable 01/31/17 05:23 Elliptocytes Not Reportable 01/31/17 05:23 Acanthocytes (Spur) Not Reportable 01/31/17 05:23 Rouleaux Not Reportable 01/31/17 05:23 Hemoglobin C Crystals Not Reportable 01/31/17 05:23 Schistocytes Not Reportable 01/31/17 05:23 Malaria parasites Not Reportable 01/31/17 05:23 Fredi Bodies Not Reportable 01/31/17 05:23 Hem Pathologist Commnt No 01/31/17 05:23 Sodium 141 mmol/L (137-145) 02/01/17 06:12 Potassium 3.9 mmol/L (3.6-5.0) 02/01/17 06:12 Chloride 96.4 mmol/L (98-107) L 02/01/17 06:12 Carbon Dioxide 27 mmol/L (22-30) D 02/01/17 06:12 Anion Gap 22 mmol/L 02/01/17 06:12 BUN 24 mg/dL (9-20) H 02/01/17 06:12 Creatinine 6.6 mg/dL (0.8-1.5) H 02/01/17 06:12 Estimated GFR 12 ml/min 02/01/17 06:12 BUN/Creatinine Ratio 3.63 % 02/01/17 06:12 Glucose 194 mg/dL (75-100) H 02/01/17 06:12 POC Glucose 197 (70-105) H 02/01/17 05:19 Calcium 8.7 mg/dL (8.4-10.2) 02/01/17 06:12 Total Bilirubin 0.3 mg/dL (0.1-1.2) 01/31/17 05:23 AST 17 units/L (5-40) 01/31/17 05:23 ALT 8 units/L (7-56) 01/31/17 05:23 Alkaline Phosphatase 82 units/L (35-129) 01/31/17 05:23 Total Protein 7.1 g/dL (6.3-8.2) 01/31/17 05:23 Albumin 3.3 g/dL (3.9-5) L 01/31/17 05:23 Albumin/Globulin Ratio 0.9 % 01/31/17 05:23 Lipase 35 units/L (13-60) 01/30/17 16:56
--- NOTE | 2017-02-01 15:45 | Gastroenterology Progress Note ---
Assessment and Plan GI: pt w/ gastroparesis with continued symptoms - continue current meds and diet - IV fluid, electrolyte management per primary team - will add Xanax 0.5 mg tid - no need EGD at this time - will follow ps. consult as dictated and signed yesterday, contacting IT as to why not in pt' s chart Subjective Date of service: 02/01/17 Interval history: pt reports symptoms unchanged. Reports would like to continue diet Objective - Constitutional Vitals: Temp Pulse Resp BP Pulse Ox 99.2 F 78 20 152/90 96 02/01/17 08:00 02/01/17 10:30 02/01/17 15:06 02/01/17 10:30 02/01/17 08:00 General appearance: no acute distress - Respiratory Respiratory: bilateral: CTA - Cardiovascular Rhythm: regular Heart Sounds: Present: S1 & S2 - Gastrointestinal General gastrointestinal: Present: soft, non-tender, non-distended - Labs CBC & Chem 7: 02/01/17 06:12 02/01/17 06:12 Labs: Laboratory Results - last 24 hr 01/31/17 02/01/17 02/01/17 21:15 01:58 05:19 WBC RBC Hgb Hct MCV MCH MCHC RDW Plt Count Sodium Potassium Chloride Carbon Dioxide Anion Gap BUN Creatinine Estimated GFR BUN/Creatinine Ratio Glucose POC Glucose 212 H 289 H 197 H Calcium 02/01/17 02/01/17 06:12 06:12 WBC 14.6 H RBC 3.69 Hgb 10.3 L Hct 32.6 L MCV 88 MCH 28 MCHC 32 RDW 17.4 H Plt Count 208 Sodium 141 Potassium 3.9 Chloride 96.4 L Carbon Dioxide 27 D Anion Gap 22 BUN 24 H Creatinine 6.6 H Estimated GFR 12 BUN/Creatinine Ratio 3.63 Glucose 194 H POC Glucose Calcium 8.7
[2017-02-01] MEDS: XANAX PO SCH (18:00)
[2017-02-01] MEDS: LEVEMIR SUB-Q SCH (22:35)
[2017-02-01] MEDS: APRESOLINE IV PRN (22:39)
[2017-02-02] MEDS: NOVOLOG SUB-Q SCH ×2 (00:35→07:31)
[2017-02-02] MEDS: DILAUDID IV PRN ×4 (02:09→20:04)
[2017-02-02] MEDS: ZOFRAN IV PRN ×2 (02:10→10:00)
[2017-02-02] MEDS: PERCOCET 5/325 PO SCH ×5 (02:10→23:24)
[2017-02-02] MEDS: REGLAN IV PRN (05:28)
--- NOTE | 2017-02-02 08:06 | Progress Note ---
Assessment and Plan End-stage renal disease patient is currently in maintenance hemodialysis Patient was seen and supervised on hemodialysis today ultrafiltration goal was reduced to less than 1 L discussed with dialysis nurse Currently his graft is being accessed with a needle with some problem with her blood flow to monitor Accelerated hypertension to follow blood pressure keep systolic under 140-150 at this time Anemia and end-stage renal disease to monitor periodically Secondary hyperparathyroidism to phosphorus and PTH will be monitored closely Patient high risk niece to be under care of dietitian and will need to be on high protein diet Have also educated him about gastroparesis diet upon discharge he will need to follow up with gastroenterology If his catheter continues to work well it can be removed in the next 2 weeks this can be arranged at the dialysis clinic Overall is slowly improving from renal standpoint We'll continue to follow and make recommendations Objective - Vital Signs Vital signs: Vital Signs - 12hr 02/01/17 02/01/17 02/02/17 22:00 22:39 00:49 Temperature 98.4 F Pulse Rate 110 H Pulse Rate [ 110 H 120 H Left Brachial] Respiratory 18 18 Rate Blood Pressure 186/95 Blood Pressure 139/77 [Left Arm] O2 Sat by Pulse 100 100 Oximetry - Lab 02/01/17 06:12 02/01/17 06:12 Most recent lab results Calcium 8.7 mg/dL (8.4-10.2) 02/01/17 06:12
[2017-02-02] MEDS: ALLBEE WITH C PO SCH (09:39)
[2017-02-02] MEDS: IMDUR PO SCH (09:40)
[2017-02-02] MEDS: COZAAR PO SCH (09:40)
[2017-02-02] MEDS: PROCARDIA XL PO SCH (10:10)
[2017-02-02] MEDS: XANAX PO SCH ×2 (10:10→23:24)
[2017-02-02] MEDS: LOVENOX SUB-Q SCH (10:11)
[2017-02-02] MEDS ORDERED: NACL 0.9 (PRIMING MACHINE ONLY DIALYSIS) MC ONE (13:08)
[2017-02-02] MEDS: HEPARIN IV PRN (14:14)
--- NOTE | 2017-02-02 15:42 | Gastroenterology Progress Note ---
Assessment and Plan GI: pt w/ gastroparesis with continued symptoms, reports feeling better today. Still attempting clears. Will consider advancing to fulls in AM - continue current meds and diet - IV fluid, electrolyte management per primary team - will add Xanax 0.5 mg tid - no need EGD at this time - Last BM 5 days ago. Will give dulcolax x 1. - will follow Subjective Date of service: 02/02/17 Interval history: Patient reports feeling " a little better." Objective - Constitutional Vitals: Temp Pulse Resp BP Pulse Ox 98.6 F 104 H 18 166/94 98 02/02/17 14:10 02/02/17 14:10 02/02/17 14:10 02/02/17 14:10 02/02/17 08:00 General appearance: no acute distress - EENT Eyes: EOM intact ENT: hearing intact - Respiratory Respiratory: bilateral: CTA - Cardiovascular Rhythm: regular Heart Sounds: Present: S1 & S2 - Extremities Extremities: No edema - Gastrointestinal General gastrointestinal: Present: soft, non-tender, normal bowel sounds - Integumentary Integumentary: Present: warm, dry - Labs CBC & Chem 7: 02/01/17 06:12 02/01/17 06:12 Labs: Laboratory Results - last 24 hr 02/01/17 02/01/17 02/01/17 11:39 22:28 23:35 POC Glucose 251 H 225 H 229 H 02/02/17 05:34 POC Glucose 170 H
--- NOTE | 2017-02-02 16:09 | Event Note ---
Date: 02/02/17 Dr Power spoke with HD nurse earlier today. She attempted to use AVG for HD ( but only able to access graft with one needle, used PC for the other line). Recommend attempting again with next HD. If successful will remove PC prior to d /c.
[2017-02-02] MEDS ORDERED: DULCOLAX PR ONE (17:00)
[2017-02-02] MEDS: PAMELOR PO SCH (22:30)
[2017-02-02] MEDS: LEVEMIR SUB-Q SCH (23:08)
[2017-02-03] MEDS: NOVOLOG SUB-Q SCH ×5 (00:10→17:12)
[2017-02-03] MEDS: PERCOCET 5/325 PO SCH ×7 (01:19→17:13)
--- NOTE | 2017-02-03 03:20 | Progress Note ---
Assessment and Plan Assessment and plan: Gastroparesis secondary to diabetes. He still has nausea vomiting. Continue Zofran prn. GI following End-stage renal disease, on hemodialysis Diabetes mellitus type 2. Fingerstick glucose before every meal and at bedtime. Levemir Accelerated Hypertension. Continue Imdur and Cozaar and Nifedipine DVT prophylaxis with Lovenox Full code status History Interval history: Still having Nausea and vomiting Hospitalist Physical - Physical exam Narrative exam: Gen:Not in acute distress, obese Neck:supple, no JVD HEENT: Normocephalic, atraumatic Lungs:Clear to auscultation bilaterally, no rales or wheeze Heart:S1 and S2 reg, no murmurs,rubs or gallop Abdomen:soft, mild tender, no rebound, normal bowel sounds Ext:No edema, clubbing or cyanosis Neuro:Awake,alert,oriented x 3. No focal signs Psych:normal mood - Constitutional Vitals: Temp Pulse Resp BP Pulse Ox 98.4 F 91 H 20 135/85 98 02/03/17 03:07 02/03/17 03:07 02/03/17 03:07 02/03/17 03:07 02/03/17 03:07 General appearance: Present: no acute distress, well-nourished, obese Results - Labs CBC & Chem 7: 02/03/17 05:16 02/03/17 05:16 Labs: Laboratory Last Values WBC 14.6 K/mm3 (4.5-11.0) H 02/01/17 06:12 RBC 3.69 M/mm3 (3.65-5.03) 02/01/17 06:12 Hgb 10.3 gm/dl (11.8-15.2) L 02/01/17 06:12 Hct 32.6 % (35.5-45.6) L 02/01/17 06:12 MCV 88 fl (84-94) 02/01/17 06:12 MCH 28 pg (28-32) 02/01/17 06:12 MCHC 32 % (32-34) 02/01/17 06:12 RDW 17.4 % (13.2-15.2) H 02/01/17 06:12 Plt Count 208 K/mm3 (140-440) 02/01/17 06:12 Lymph % (Auto) 8.8 % (13.4-35.0) L 01/30/17 16:56 [place] % (Auto) 5.2 % (0.0-7.3) 01/30/17 16:56 Eos % (Auto) 0.2 % (0.0-4.3) 01/30/17 16:56 Baso % (Auto) 0.6 % (0.0-1.8) 01/30/17 16:56 Lymph # 1.2 K/mm3 (1.2-5.4) 01/30/17 16:56 [place] # 0.7 K/mm3 (0.0-0.8) 01/30/17 16:56 Eos # 0.0 K/mm3 (0.0-0.4) 01/30/17 16:56 Baso # 0.1 K/mm3 (0.0-0.1) 01/30/17 16:56 Add Manual Diff Complete 01/31/17 05:23 Total Counted 100 01/31/17 05:23 Seg Neutrophils % [employer] 01/31/17 05:23 Seg Neuts % (Manual) 85.0 % (40.0-70.0) H 01/31/17 05:23 Band Neutrophils % 2.0 % 01/31/17 05:23 Lymphocytes % (Manual) 7.0 % (13.4-35.0) L 01/31/17 05:23 Reactive Lymphs % (Man) 0 % 01/31/17 05:23 Monocytes % (Manual) 6.0 % (0.0-7.3) 01/31/17 05:23 Eosinophils % (Manual) 0 % (0.0-4.3) 01/31/17 05:23 Basophils % (Manual) 0 % (0.0-1.8) 01/31/17 05:23 Metamyelocytes % 0 % 01/31/17 05:23 Myelocytes % 0 % 01/31/17 05:23 Promyelocytes % 0 % 01/31/17 05:23 Blast Cells % 0 % 01/31/17 05:23 Nucleated RBC % Not Reportable 01/31/17 05:23 Seg Neutrophils # 11.7 K/mm3 (1.8-7.7) H 01/30/17 16:56 Seg Neutrophils # Man 11.8 K/mm3 (1.8-7.7) H 01/31/17 05:23 Band Neutrophils # 0.3 K/mm3 01/31/17 05:23 Lymphocytes # (Manual) 1.0 K/mm3 (1.2-5.4) L 01/31/17 05:23 Abs React Lymphs (Man) 0.0 K/mm3 01/31/17 05:23 Monocytes # (Manual) 0.8 K/mm3 (0.0-0.8) 01/31/17 05:23 Eosinophils # (Manual) 0.0 K/mm3 (0.0-0.4) 01/31/17 05:23 Basophils # (Manual) 0.0 K/mm3 (0.0-0.1) 01/31/17 05:23 Metamyelocytes # 0.0 K/mm3 01/31/17 05:23 Myelocytes # 0.0 K/mm3 01/31/17 05:23 Promyelocytes # 0.0 K/mm3 01/31/17 05:23 Blast Cells # 0.0 K/mm3 01/31/17 05:23 WBC Morphology Not Reportable 01/31/17 05:23 Hypersegmented Neuts Not Reportable 01/31/17 05:23 Hyposegmented Neuts Not Reportable 01/31/17 05:23 Hypogranular Neuts Not Reportable 01/31/17 05:23 Smudge Cells Not Reportable 01/31/17 05:23 Toxic Granulation Not Reportable 01/31/17 05:23 Toxic Vacuolation Not Reportable 01/31/17 05:23 Dohle Bodies Not Reportable 01/31/17 05:23 Pelger-Huet Anomaly Not Reportable 01/31/17 05:23 Kate Rods Not Reportable 01/31/17 05:23 Platelet Estimate Appears normal 01/31/17 05:23 Clumped Platelets Not Reportable 01/31/17 05:23 Plt Clumps, EDTA Not Reportable 01/31/17 05:23 Large Platelets Not Reportable 01/31/17 05:23 Giant Platelets Not Reportable 01/31/17 05:23 Platelet Satelliting Not Reportable 01/31/17 05:23 Plt Morphology Comment Not Reportable 01/31/17 05:23 RBC Morphology Not Reportable 01/31/17 05:23 Dimorphic RBCs Not Reportable 01/31/17 05:23 Polychromasia Not Reportable 01/31/17 05:23 Hypochromasia Few 01/31/17 05:23 Poikilocytosis Not Reportable 01/31/17 05:23 Anisocytosis Not Reportable 01/31/17 05:23 Microcytosis Not Reportable 01/31/17 05:23 Macrocytosis Not Reportable 01/31/17 05:23 Spherocytes Not Reportable 01/31/17 05:23 Pappenheimer Bodies Not Reportable 01/31/17 05:23 Sickle Cells Not Reportable 01/31/17 05:23 Target Cells Not Reportable 01/31/17 05:23 Tear Drop Cells Not Reportable 01/31/17 05:23 Ovalocytes Few 01/31/17 05:23 Helmet Cells Not Reportable 01/31/17 05:23 Bustos-[place] Bodies Not Reportable 01/31/17 05:23 [place] Rings Not Reportable 01/31/17 05:23 [place] Cells Not Reportable 01/31/17 05:23 Bite Cells Not Reportable 01/31/17 05:23 Crenated Cell Not Reportable 01/31/17 05:23 Elliptocytes Not Reportable 01/31/17 05:23 Acanthocytes (Spur) Not Reportable 01/31/17 05:23 Rouleaux Not Reportable 01/31/17 05:23 Hemoglobin C Crystals Not Reportable 01/31/17 05:23 Schistocytes Not Reportable 01/31/17 05:23 Malaria parasites Not Reportable 01/31/17 05:23 Fredi Bodies Not Reportable 01/31/17 05:23 Hem Pathologist Commnt No 01/31/17 05:23 Sodium 141 mmol/L (137-145) 02/01/17 06:12 Potassium 3.9 mmol/L (3.6-5.0) 02/01/17 06:12 Chloride 96.4 mmol/L (98-107) L 02/01/17 06:12 Carbon Dioxide 27 mmol/L (22-30) D 02/01/17 06:12 Anion Gap 22 mmol/L 02/01/17 06:12 BUN 24 mg/dL (9-20) H 02/01/17 06:12 Creatinine 6.6 mg/dL (0.8-1.5) H 02/01/17 06:12 Estimated GFR 12 ml/min 02/01/17 06:12 BUN/Creatinine Ratio 3.63 % 02/01/17 06:12 Glucose 194 mg/dL (75-100) H 02/01/17 06:12 POC Glucose 184 (70-105) H 02/02/17 22:06 Calcium 8.7 mg/dL (8.4-10.2) 02/01/17 06:12 Total Bilirubin 0.3 mg/dL (0.1-1.2) 01/31/17 05:23 AST 17 units/L (5-40) 01/31/17 05:23 ALT 8 units/L (7-56) 01/31/17 05:23 Alkaline Phosphatase 82 units/L (35-129) 01/31/17 05:23 Total Protein 7.1 g/dL (6.3-8.2) 01/31/17 05:23 Albumin 3.3 g/dL (3.9-5) L 01/31/17 05:23 Albumin/Globulin Ratio 0.9 % 01/31/17 05:23 Lipase 35 units/L (13-60) 01/30/17 16:56
[2017-02-03 05:37] LABS: Hematocrit 30.4 % (35.5-45.6); Hemoglobin 9.8 gm/dl (11.8-15.2); Mean Corpuscular HGB Conc 32 % (32-34); Mean Corpuscular Hemoglobin 28 pg (28-32); Mean Corpuscular Volume 87 fl (84-94); Platelet Count 141 K/mm3 (140-440); Red Blood Count 3.49 M/mm3 (3.65-5.03); Red Cell Distribution Width 16.6 % (13.2-15.2); White Blood Count 11.3 K/mm3 (4.5-11.0)
[2017-02-03 06:47] LABS: BUN/Creatinine Ratio 5.35; Calcium 7.7 mg/dL (8.4-10.2); Chloride 90.5 mmol/L (98-107); Potassium 3.2 mmol/L (3.6-5.0)
--- NOTE | 2017-02-03 07:26 | Consultation ---
REASON FOR CONSULTATION: Management of end-stage renal disease. The patient is currently being admitted with gastroparesis flare, requiring dialysis. The patient is currently on dialysis on Tuesday, Tuesday and Tuesday. HISTORY OF PRESENT ILLNESS: The patient is a 36-year-old gentleman who is currently established in our group for his end-stage renal disease care. The patient normally dialyzes on Tuesday, Tuesday, and Tuesday, admitted to hospital with severe uncontrolled abdominal pain, nausea, vomiting, unable to keep anything down. The patient has had a graft placed in his right arm and is followed by Dr. Álvaro Tobar, and has been told that his graft can be cannulated now. He still continues to get his dialysis with his PermCath. The patient denies having any fever or chills. He does suffer from longstanding poorly controlled diabetes in the past with some end organ damage shown. PAST MEDICAL HISTORY: Significant for: 1. End-stage renal disease. 2. Anemia on end-stage renal disease. 3. Secondary hyperparathyroidism. 4. Diabetes mellitus, type 2. 5. History of gastroparesis. CURRENT ALLERGIES: None. HOME MEDICATIONS: Nifedipine, insulin, hydralazine, isosorbide, losartan, clonidine, carvedilol, vitamin B complex, and oxycodone. PAST SURGICAL HISTORY: Significant for toe amputation, Vas-Cath surgery, graft creation by Dr. Álvaro Tobar. SOCIAL HISTORY: Lives with his family, history of smoking. FAMILY HISTORY: Positive for hypertension. REVIEW OF SYSTEMS: Positive for uncontrolled nausea, vomiting, and abdominal pain. Appetite has been very poor. Blood sugars have been labile. Complete review of systems is obtained, pertinent positives mentioned above. Other review of systems negative. PHYSICAL EXAMINATION: As of today, GENERAL: The patient is a pleasant 36-year-old man who is lying comfortably in bed, does not appear in acute distress. He is ____ some clear fluid that he vomited. VITAL SIGNS: Reviewed from this admission. HEENT: Normocephalic, atraumatic skull. Extraocular movements are intact. Oral mucosa appears to be moist. ____. NECK: Supple, no thyromegaly or JVD. CHEST: On examination, the patient does have right upper chest PermCath. HEART: Regular rate. S1, S2 heard. No S3, S4. ABDOMEN: Soft. There is tenderness in the epigastric area and some generalized tenderness around the periumbilical, but no voluntary guarding, rebound, or organomegaly. No masses. EXTREMITIES: ____ edema. He does have a functioning graft in his right upper arm, which ____ appear to be ready for use. LABORATORY DATA: White count is 13.9, hemoglobin 8.9, hematocrit 28.1, platelet count of 234,000. Sodium 139, potassium 3.8, chloride 98, bicarbonate 21, BUN 26, creatinine is 6.6, calcium is 8.2. ASSESSMENT AND PLAN: 1. End-stage renal disease. The patient is currently on maintenance hemodialysis and will require to be dialyzed. 2. Accelerated hypertension. The patient has not been able to take his medications and keep it down, and so preferred to use IV as well as topical medications for now. 3. Gastroparesis flareup. Needs to be followed by Gastrointestinal. The patient needs to see possibly a tertiary care center. 4. Chronic opiates, which may make gastroparesis worse. The patient was instructed to avoid constipation. 5. Anemia and end-stage renal disease. To monitor at this time erythropoietin as needed. Current hemoglobin is around 8.9. 6. Diabetes mellitus type 2, poorly controlled, longstanding 7. Adjust blood pressure medications for hypertension. At this time, the patient will be kept on dialysis. If possible, his graft can be used. Next dialysis treatment, I have asked Dr. Tobar to take a look at his graft to make sure it is okay to use. In the meantime, we would like to adjust his blood pressure medications to stabilize. We will use transdermal clonidine as well as hydralazine. Other medications can be restricted as tolerated, gastroparesis flared, needs to be treated. The patient may benefit from a GI evaluation as well. Plan of care discussed with the patient. All questions were answered. We will continue to follow and make recommendations from the renal standpoint. JOB# [id number] ASHA/ROCK
--- NOTE | 2017-02-03 07:58 | Progress Note ---
Assessment and Plan End-stage renal disease patient is currently on maintenance hemodialysis on Tuesday and Tuesday Patient will need to continue with hemodialysis during these days hypertension well controlled His AV graft has been used yesterday, but only one needle was used If continues to be working well his catheter can be removed next week by Tuesday Gastroparesis flares slowly improving educated about gastroparesis diet also to follow-up with gastroenterology service Accelerated hypertension currently improving slowly We'll continue to monitor and follow from renal standpoint Subjective Interval history: Patient was seen today for follow-up Denies any complaints of chest pain pressure or shortness of breath Vitals labs intake output medications were reviewed Events at 24 hours were noted Objective - Vital Signs Vital signs: Vital Signs - 12hr 02/02/17 02/02/17 02/03/17 21:25 22:00 03:07 Temperature 98.6 F 98.4 F Pulse Rate [ 106 H 91 H Left Brachial] Respiratory 20 20 Rate Blood Pressure 185/95 135/85 [Left Arm] O2 Sat by Pulse 96 100 98 Oximetry - General Appearance General appearance: well-developed EENT: mucous membranes moist Neck: no JVD Respiratory: Present: Clear to Ascultation Cardiology: regular, S1S2 Gastrointestinal: normal (mild tenderness) Neurologic: no focal deficit - Lab 02/03/17 05:16 02/03/17 05:16 Most recent lab results Calcium 7.7 mg/dL (8.4-10.2) L 02/03/17 05:16
[2017-02-03] MEDS: IMDUR PO SCH (09:58)
[2017-02-03] MEDS: ALLBEE WITH C PO SCH (09:58)
[2017-02-03] MEDS: COZAAR PO SCH (09:58)
[2017-02-03] MEDS: LOVENOX SUB-Q SCH (09:59)
[2017-02-03] MEDS: PROCARDIA XL PO SCH (10:01)
[2017-02-03] MEDS: XANAX PO SCH ×2 (10:01→23:25)
--- NOTE | 2017-02-03 11:31 | Gastroenterology Progress Note ---
Assessment and Plan GI: pt w/ gastroparesis with continued symptoms, reports feeling better today. Tolerating clears. Advance to full liquids. - continue current meds - IV fluid, electrolyte management per primary team - will add Xanax 0.5 mg tid - no need EGD at this time - Last BM 5 days ago. Refused Dulcolax supp, non-compliant. Subjective Date of service: 02/03/17 Interval history: Patient reports he is tolerating clear liquids with no vomiting today. Pt refused Ducolax supp. Pt denies pain and without distress. Family at bedside. Objective - Constitutional Vitals: Temp Pulse Resp BP Pulse Ox 98.3 F 108 H 18 141/92 98 02/03/17 08:00 02/03/17 09:58 02/03/17 08:00 02/03/17 09:58 02/03/17 08:00 General appearance: no acute distress - EENT ENT: hearing intact - Respiratory Respiratory: bilateral: CTA - Cardiovascular Rhythm: regular Heart Sounds: Present: S1 & S2 - Gastrointestinal General gastrointestinal: Present: soft, non-tender, distended - Integumentary Integumentary: Present: warm, dry - Neurologic Neurological: alert and oriented x3 - Labs CBC & Chem 7: 02/03/17 05:16 02/03/17 05:16 Labs: Laboratory Results - last 24 hr 02/02/17 02/02/17 02/03/17 16:07 22:06 05:16 WBC 11.3 H RBC 3.49 L Hgb 9.8 L Hct 30.4 L MCV 87 MCH 28 MCHC 32 RDW 16.6 H Plt Count 141 Sodium Potassium Chloride Carbon Dioxide Anion Gap BUN Creatinine Estimated GFR BUN/Creatinine Ratio Glucose POC Glucose 155 H 184 H Calcium 02/03/17 02/03/17 02/03/17 05:16 05:42 08:38 WBC RBC Hgb Hct MCV MCH MCHC RDW Plt Count Sodium 136 L Potassium 3.2 L Chloride 90.5 L Carbon Dioxide 22 Anion Gap 27 BUN 38 H Creatinine 7.1 H Estimated GFR 11 BUN/Creatinine Ratio 5.35 Glucose 125 H POC Glucose 117 H 102 Calcium 7.7 L
--- NOTE | 2017-02-03 13:46 | Progress Note ---
Assessment and Plan Assessment and plan: Gastroparesis secondary to diabetes. He still has nausea. less vomiting. Continue Zofran prn. Start full liquid diet today. GI following End-stage renal disease, on hemodialysis Diabetes mellitus type 2. Fingerstick glucose before every meal and at bedtime. Levemir Accelerated Hypertension. Continue Imdur and Cozaar and Nifedipine DVT prophylaxis with Lovenox Full code status History Interval history: Still having Nausea and vomiting, less abdominal pain Hospitalist Physical - Physical exam Narrative exam: Gen: Not in acute distress, obese Neck: supple, no JVD HEENT: Normocephalic, atraumatic Lungs:Clear to auscultation bilaterally, no rales or wheeze Heart:S1 and S2 reg, no murmurs,rubs or gallop Abdomen:soft, mild tender, no rebound, normal bowel sounds Ext:No edema, clubbing or cyanosis Neuro:Awake,alert,oriented x 3. No focal signs Psych:normal mood - Constitutional Vitals: Temp Pulse Resp BP Pulse Ox 98.3 F 108 H 18 141/92 98 02/03/17 08:00 02/03/17 09:58 02/03/17 08:00 02/03/17 09:58 02/03/17 08:00 General appearance: Present: no acute distress, well-nourished, obese Results - Labs CBC & Chem 7: 02/03/17 05:16 02/03/17 05:16 Labs: Laboratory Last Values WBC 11.3 K/mm3 (4.5-11.0) H 02/03/17 05:16 RBC 3.49 M/mm3 (3.65-5.03) L 02/03/17 05:16 Hgb 9.8 gm/dl (11.8-15.2) L 02/03/17 05:16 Hct 30.4 % (35.5-45.6) L 02/03/17 05:16 MCV 87 fl (84-94) 02/03/17 05:16 MCH 28 pg (28-32) 02/03/17 05:16 MCHC 32 % (32-34) 02/03/17 05:16 RDW 16.6 % (13.2-15.2) H 02/03/17 05:16 Plt Count 141 K/mm3 (140-440) 02/03/17 05:16 Lymph % (Auto) 8.8 % (13.4-35.0) L 01/30/17 16:56 [place] % (Auto) 5.2 % (0.0-7.3) 01/30/17 16:56 Eos % (Auto) 0.2 % (0.0-4.3) 01/30/17 16:56 Baso % (Auto) 0.6 % (0.0-1.8) 01/30/17 16:56 Lymph # 1.2 K/mm3 (1.2-5.4) 01/30/17 16:56 [place] # 0.7 K/mm3 (0.0-0.8) 01/30/17 16:56 Eos # 0.0 K/mm3 (0.0-0.4) 01/30/17 16:56 Baso # 0.1 K/mm3 (0.0-0.1) 01/30/17 16:56 Add Manual Diff Complete 01/31/17 05:23 Total Counted 100 01/31/17 05:23 Seg Neutrophils % Suction Plate Roller Hand 01/31/17 05:23 Seg Neuts % (Manual) 85.0 % (40.0-70.0) H 01/31/17 05:23 Band Neutrophils % 2.0 % 01/31/17 05:23 Lymphocytes % (Manual) 7.0 % (13.4-35.0) L 01/31/17 05:23 Reactive Lymphs % (Man) 0 % 01/31/17 05:23 Monocytes % (Manual) 6.0 % (0.0-7.3) 01/31/17 05:23 Eosinophils % (Manual) 0 % (0.0-4.3) 01/31/17 05:23 Basophils % (Manual) 0 % (0.0-1.8) 01/31/17 05:23 Metamyelocytes % 0 % 01/31/17 05:23 Myelocytes % 0 % 01/31/17 05:23 Promyelocytes % 0 % 01/31/17 05:23 Blast Cells % 0 % 01/31/17 05:23 Nucleated RBC % Not Reportable 01/31/17 05:23 Seg Neutrophils # 11.7 K/mm3 (1.8-7.7) H 01/30/17 16:56 Seg Neutrophils # Man 11.8 K/mm3 (1.8-7.7) H 01/31/17 05:23 Band Neutrophils # 0.3 K/mm3 01/31/17 05:23 Lymphocytes # (Manual) 1.0 K/mm3 (1.2-5.4) L 01/31/17 05:23 Abs React Lymphs (Man) 0.0 K/mm3 01/31/17 05:23 Monocytes # (Manual) 0.8 K/mm3 (0.0-0.8) 01/31/17 05:23 Eosinophils # (Manual) 0.0 K/mm3 (0.0-0.4) 01/31/17 05:23 Basophils # (Manual) 0.0 K/mm3 (0.0-0.1) 01/31/17 05:23 Metamyelocytes # 0.0 K/mm3 01/31/17 05:23 Myelocytes # 0.0 K/mm3 01/31/17 05:23 Promyelocytes # 0.0 K/mm3 01/31/17 05:23 Blast Cells # 0.0 K/mm3 01/31/17 05:23 WBC Morphology Not Reportable 01/31/17 05:23 Hypersegmented Neuts Not Reportable 01/31/17 05:23 Hyposegmented Neuts Not Reportable 01/31/17 05:23 Hypogranular Neuts Not Reportable 01/31/17 05:23 Smudge Cells Not Reportable 01/31/17 05:23 Toxic Granulation Not Reportable 01/31/17 05:23 Toxic Vacuolation Not Reportable 01/31/17 05:23 Dohle Bodies Not Reportable 01/31/17 05:23 Pelger-Huet Anomaly Not Reportable 01/31/17 05:23 Kate Rods Not Reportable 01/31/17 05:23 Platelet Estimate Appears normal 01/31/17 05:23 Clumped Platelets Not Reportable 01/31/17 05:23 Plt Clumps, EDTA Not Reportable 01/31/17 05:23 Large Platelets Not Reportable 01/31/17 05:23 Giant Platelets Not Reportable 01/31/17 05:23 Platelet Satelliting Not Reportable 01/31/17 05:23 Plt Morphology Comment Not Reportable 01/31/17 05:23 RBC Morphology Not Reportable 01/31/17 05:23 Dimorphic RBCs Not Reportable 01/31/17 05:23 Polychromasia Not Reportable 01/31/17 05:23 Hypochromasia Few 01/31/17 05:23 Poikilocytosis Not Reportable 01/31/17 05:23 Anisocytosis Not Reportable 01/31/17 05:23 Microcytosis Not Reportable 01/31/17 05:23 Macrocytosis Not Reportable 01/31/17 05:23 Spherocytes Not Reportable 01/31/17 05:23 Pappenheimer Bodies Not Reportable 01/31/17 05:23 Sickle Cells Not Reportable 01/31/17 05:23 Target Cells Not Reportable 01/31/17 05:23 Tear Drop Cells Not Reportable 01/31/17 05:23 Ovalocytes Few 01/31/17 05:23 Helmet Cells Not Reportable 01/31/17 05:23 [place] Bodies Not Reportable 01/31/17 05:23 [place] Rings Not Reportable 01/31/17 05:23 [place] Cells Not Reportable 01/31/17 05:23 Bite Cells Not Reportable 01/31/17 05:23 Crenated Cell Not Reportable 01/31/17 05:23 Elliptocytes Not Reportable 01/31/17 05:23 Acanthocytes (Spur) Not Reportable 01/31/17 05:23 Rouleaux Not Reportable 01/31/17 05:23 Hemoglobin C Crystals Not Reportable 01/31/17 05:23 Schistocytes Not Reportable 01/31/17 05:23 Malaria parasites Not Reportable 01/31/17 05:23 Fredi Bodies Not Reportable 01/31/17 05:23 Hem Pathologist Commnt No 01/31/17 05:23 Sodium 136 mmol/L (137-145) L 02/03/17 05:16 Potassium 3.2 mmol/L (3.6-5.0) L 02/03/17 05:16 Chloride 90.5 mmol/L (98-107) L 02/03/17 05:16 Carbon Dioxide 22 mmol/L (22-30) 02/03/17 05:16 Anion Gap 27 mmol/L 02/03/17 05:16 BUN 38 mg/dL (9-20) H 02/03/17 05:16 Creatinine 7.1 mg/dL (0.8-1.5) H 02/03/17 05:16 Estimated GFR 11 ml/min 02/03/17 05:16 BUN/Creatinine Ratio 5.35 % 02/03/17 05:16 Glucose 125 mg/dL (75-100) H 02/03/17 05:16 POC Glucose 102 (70-105) 02/03/17 08:38 Calcium 7.7 mg/dL (8.4-10.2) L 02/03/17 05:16 Total Bilirubin 0.3 mg/dL (0.1-1.2) 01/31/17 05:23 AST 17 units/L (5-40) 01/31/17 05:23 ALT 8 units/L (7-56) 01/31/17 05:23 Alkaline Phosphatase 82 units/L (35-129) 01/31/17 05:23 Total Protein 7.1 g/dL (6.3-8.2) 01/31/17 05:23 Albumin 3.3 g/dL (3.9-5) L 01/31/17 05:23 Albumin/Globulin Ratio 0.9 % 01/31/17 05:23 Lipase 35 units/L (13-60) 01/30/17 16:56
[2017-02-03] MEDS: LEVEMIR SUB-Q SCH (23:48)
[2017-02-03] MEDS: PAMELOR PO SCH (23:51)
[2017-02-04] MEDS: PERCOCET 5/325 PO SCH ×3 (00:50→07:04)
[2017-02-04] MEDS: NOVOLOG SUB-Q SCH ×2 (01:47→07:04)
[2017-02-04] MEDS: DILAUDID IV PRN (08:55)
--- NOTE | 2017-02-04 10:12 | Discharge Summary ---
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 Hospitalization Condition: Good Disposition: DISCHARGED TO HOME OR SELFCARE - Discharge Diagnoses (1) Accelerated hypertension Status: Acute (2) Gastroparesis Status: Acute (3) ESRD (end stage renal disease) Status: Chronic (4) GERD (gastroesophageal reflux disease) Status: Chronic Qualifiers: Esophagitis presence: with esophagitis Qualified Code(s): K21.0 - Gastro- esophageal reflux disease with esophagitis Exam - Constitutional Vitals: Temp Pulse Resp BP Pulse Ox 97.9 F 81 18 102/69 100 02/04/17 07:00 02/04/17 07:00 02/04/17 07:00 02/04/17 07:00 02/04/17 07:00 Plan Activity: no restrictions Diet: low fat, low cholesterol, low salt, renal Additional Instructions: 1.Follow up with PCP or [facility] in 1 week. 2.Continue routine hemodialysis as scheduled. 3.Follow up with Dr. Amador Dalton, GI in 1 week Follow up with: PRIMARY CARE, [Primary Care Provider] - 3-5 Days Prescriptions: Insulin Glargine [Lantus VIAL] 40 units SQ QHS #1 vial Metoclopramide [Reglan TAB] 10 mg PO ACHS PRN #30 tablet PRN Reason: nausea or vomiting
--- NOTE | 2017-02-04 10:58 | Gastroenterology Progress Note ---
Assessment and Plan GI: improving, tolerating po - advance diet as tolerated - ok to d/c from GI standpoint, will sign off, call if needed Subjective Date of service: 02/04/17 Interval history: pt reprots doing better, tolerating po Objective - Constitutional Vitals: Temp Pulse Resp BP Pulse Ox 97.7 F 76 16 115/59 100 02/04/17 09:54 02/04/17 09:54 02/04/17 09:54 02/04/17 09:54 02/04/17 07:00 General appearance: no acute distress - Respiratory Respiratory: bilateral: CTA - Cardiovascular Rhythm: regular Heart Sounds: Present: S1 & S2 - Gastrointestinal General gastrointestinal: Present: soft, non-tender, non-distended - Labs CBC & Chem 7: 02/03/17 05:16 02/03/17 05:16 Labs: Laboratory Results - last 24 hr 02/03/17 02/03/17 02/03/17 12:47 16:57 22:33 POC Glucose 215 H 156 H 144 H 02/04/17 07:26 POC Glucose 128 H
[2017-02-04] MEDS ORDERED: NACL 0.9 (PRIMING MACHINE ONLY DIALYSIS) MC ONE (11:14)
--- NOTE | 2017-02-04 12:03 | Progress Note ---
Assessment and Plan End-stage renal disease patient is currently on maintenance hemodialysis on Tuesday and Tuesday, jf HD ok AVG being used now to continue with Accel hypertension well controlled Gastroparesis flares slowly improving educated about gastroparesis diet better CAn follow up in clinic Subjective Interval history: patient was seen today for follow-up No acute distress currently resting comfortably Nausea and vomiting improving no shortness of breath His graft is currently being used for dialysis Objective - Vital Signs Vital signs: Vital Signs - 12hr 02/04/17 02/04/17 07:00 09:54 Temperature 97.9 F 97.7 F Pulse Rate 76 Pulse Rate [ 81 Left Brachial] Respiratory 18 16 Rate Blood Pressure 115/56 Blood Pressure 102/69 [Left Arm] O2 Sat by Pulse 100 Oximetry - General Appearance General appearance: appears stated age EENT: mucous membranes moist Neck: no JVD Respiratory: Present: Clear to Ascultation Cardiology: regular Gastrointestinal: normal Neurologic: other (alert awake oriented) - Lab 02/03/17 05:16 02/03/17 05:16 Most recent lab results Calcium 7.7 mg/dL (8.4-10.2) L 02/03/17 05:16
[2017-02-04 14:21] VITALS: BP 112/64
== END 2017-02-04 15:30 | disposition home or self-care (01) | DRG 682 ==
LOC: ED 14:43 → 3A 19:53 → 2B-SURG 22:09
PROVIDERS: ADMIT Internal Medicine; ATTEND Internal Medicine
PROC: 5A1D60Z (ICD-10-PCS; principal; 2017-02-04)
DX: I12.0 Hypertensive chronic kidney disease with stage 5 chronic kidney disease or end stage renal disease (principal); N18.6 End stage renal disease; I16.1 Hypertensive emergency; N25.81 Secondary hyperparathyroidism of renal origin; E11.43 Type 2 diabetes mellitus with diabetic autonomic (poly)neuropathy; I25.10 Atherosclerotic heart disease of native coronary artery without angina pectoris; D63.1 Anemia in chronic kidney disease; K21.0 Gastro-esophageal reflux disease with esophagitis; K31.84 Gastroparesis; K21.9 Gastro-esophageal reflux disease without esophagitis; E11.22 Type 2 diabetes mellitus with diabetic chronic kidney disease; Z99.2 Dependence on renal dialysis; Z86.73 Personal history of transient ischemic attack (TIA), and cerebral infarction without residual deficits; I25.2 Old myocardial infarction; Z89.421 Acquired absence of other right toe(s); Z82.49 Family history of ischemic heart disease and other diseases of the circulatory system; Z79.4 Long term (current) use of insulin; Z79.899 Other long term (current) drug therapy
CPT/HCPCS: 36415; 80048; 80053; 82962; 83690; 85007; 85025; 85027; 96372; 96374; 96375; 96376; J0360; J0500; J1170; J1644; J1650; J1815; J1818; J2405; J2765; J7030

== ENCOUNTER 2017-02-12 11:18 | Emergency (ER) | payer BC ==
[2017-02-12 12:32] LABS: Hematocrit 27.8 % (35.5-45.6); Hemoglobin 8.6 gm/dl (11.8-15.2); Mean Corpuscular HGB Conc 31 % (32-34); Mean Corpuscular Hemoglobin 28 pg (28-32); Mean Corpuscular Volume 89 fl (84-94); Red Blood Count 3.12 M/mm3 (3.65-5.03); Red Cell Distribution Width 16.1 % (13.2-15.2); White Blood Count 19.4 K/mm3 (4.5-11.0)
[2017-02-12 12:46] LABS: Platelet Count 272 K/mm3 (140-440)
[2017-02-12 13:00] LABS: BUN/Creatinine Ratio 3.71; Calcium 8.6 mg/dL (8.4-10.2); Chloride 94.8 mmol/L (98-107); Potassium 4.4 mmol/L (3.6-5.0)
[2017-02-12 13:31] LABS: Basophils % (Manual) 0 % (0.0-1.8); Blastocytes % (Manual) 0 %
[2017-02-12 13:32] LABS: Anisocytosis 1+; Diff Status Complete
[2017-02-12 15:55] LABS: INR 1.15 (0.87-1.13)
[2017-02-12 15:56] LABS: Partial Thromboplastin Time 31.5 Sec. (24.2-36.6)
[2017-02-12] MEDS ORDERED: TORADOL IV ONE (16:04)
[2017-02-12] MEDS ORDERED: NACL 0.9% 1000 ML 1,000 ML IV ONE (16:04)
[2017-02-12 17:38] VITALS: BP 140/96
--- NOTE | 2017-02-12 19:25 | Emergency Department Report ---
ED Chest Pain HPI - General Chief Complaint: Chest Pain Stated Complaint: CHEST PAIN/SOB/LF ARM WEAKNESS Time Seen by Provider: 02/12/17 15:43 Source: patient Mode of arrival: Ambulatory Limitations: No Limitations - History of Present Illness MD Complaint: chest pain -: Gradual Severity scale (0 -10): 5 - Related Data Home Medications Medication Instructions Recorded Confirmed Last Taken NIFEdipine XL [Procardia Xl] 30 mg PO QDAY 02/23/16 01/30/17 01/12/17 07:00 Insulin Regular, Human [HumuLIN R] 6 unit SQ AC 02/24/16 01/30/17 01/11/17 19:00 3 UNITS Hydralazine HCl [Apresoline TAB] 50 mg PO Q8HR 12/16/16 01/30/17 01/11/17 18:00 ISOSORBIDE MONOnitrate [Imdur ER] 30 mg PO DAILY 12/16/16 01/30/17 01/11/17 18: 00 Losartan [Cozaar] 50 mg PO QDAY 12/16/16 01/30/17 01/11/17 12:00 cloNIDine [Clonidine] 1 each TD QWEEK 12/16/16 01/30/17 01/11/17 Vit B Comp&C/Folic Acid/Vit D3 1 each PO QDAY 01/10/17 01/30/17 01/11/17 [Dialyvite 800 Plus D Wafer] Previous Rx's Medication Instructions Recorded Last Taken Type Carvedilol [Coreg] 12.5 mg PO BID #60 tablet 12/21/16 01/12/17 07:00 Rx oxyCODONE /ACETAMINOPHEN [Percocet 1 - 2 tab PO Q4HR #40 tab 01/12/17 Unknown Rx 5/325 mg] Insulin Glargine [Lantus VIAL] 40 units SQ QHS #1 vial 02/04/17 Unknown Rx Metoclopramide [Reglan TAB] 10 mg PO ACHS PRN #30 tablet 02/04/17 Unknown Rx Diclofenac Potassium 50 mg PO BID #20 tablet 02/12/17 Unknown Rx Allergies Allergy/AdvReac Type Severity Reaction Status Date / Time No Known Allergies Allergy Verified 02/12/17 11:41 RUFINA score - Rufina Score Age > 65: (0) No Aspirin use within the Past 7 Days: (1) Yes 3 or more CAD Risk Factors: (1) Yes 2 or more Angina events in past 24 hrs: (1) Yes Known CAD with more than 50% Stenosis: (1) Yes Elevated Cardiac Markers: (1) Yes ST Deviation Greater than 0.5mm: (0) No RUFINA Score: 5 ED Review of Systems ROS: Stated complaint: CHEST PAIN/SOB/LF ARM WEAKNESS Other details as noted in HPI Constitutional: denies: chills, fever Eyes: denies: eye pain, eye discharge, vision change ENT: denies: ear pain, throat pain Respiratory: denies: cough, shortness of breath, wheezing Cardiovascular: denies: chest pain, palpitations Endocrine: no symptoms reported Gastrointestinal: denies: abdominal pain, nausea, diarrhea Genitourinary: denies: urgency, dysuria Musculoskeletal: denies: back pain, joint swelling, arthralgia Skin: denies: rash, lesions Neurological: denies: headache, weakness, paresthesias Psychiatric: denies: anxiety, depression Hematological/Lymphatic: denies: easy bleeding, easy bruising ED Past Medical Hx - Past Medical History Hx Hypertension: Yes (Coreg ) Hx CVA: Yes (TIA's) Hx Heart Attack/AMI: Yes Hx Congestive Heart Failure: No Hx Diabetes: Yes Hx Deep Vein Thrombosis: No Hx Pulmonary Embolism: No Hx GERD: No Hx Liver Disease: No Hx Renal Disease: Yes (M-W-F) Hx Arthritis: No Hx Headaches / Migraines: No Hx Seizures: No Hx Kidney Stones: No Hx Psychiatric Treatment: No Hx Asthma: No Hx COPD: No Hx Tuberculosis: No Hx Dementia: No Hx HIV: No Additional medical history: gastroparesis - Surgical History Hx Coronary Stent: No Hx Open Heart Surgery: No Hx Pacemaker: No Hx Internal Defibrillator: No Hx Cholecystectomy: No Hx Appendectomy: No Hx Breast Surgery: No Additional Surgical History: left eye surgery, right toe amputation, right chest vas cath. GRAFT RIGHT UPPER ARM - Social History Smoking Status: Never Smoker Substance Use Type: None - Medications Home Medications: Home Medications Medication Instructions Recorded Confirmed Last Taken Type NIFEdipine XL [Procardia Xl] 30 mg PO QDAY 02/23/16 01/30/17 01/12/17 07:00 History Insulin Regular, Human [HumuLIN R] 6 unit SQ AC 02/24/16 01/30/17 01/11/17 19: 00 History 3 UNITS Hydralazine HCl [Apresoline TAB] 50 mg PO Q8HR 12/16/16 01/30/17 01/11/17 18:00 History ISOSORBIDE MONOnitrate [Imdur ER] 30 mg PO DAILY 12/16/16 01/30/17 01/11/17 18: 00 History Losartan [Cozaar] 50 mg PO QDAY 12/16/16 01/30/17 01/11/17 12:00 History cloNIDine [Clonidine] 1 each TD QWEEK 12/16/16 01/30/17 01/11/17 History Carvedilol [Coreg] 12.5 mg PO BID #60 tablet 12/21/16 01/30/17 01/12/17 07:00 Rx Vit B Comp&C/Folic Acid/Vit D3 1 each PO QDAY 01/10/17 01/30/17 01/11/17 History [Dialyvite 800 Plus D Wafer] oxyCODONE /ACETAMINOPHEN [Percocet 1 - 2 tab PO Q4HR #40 tab 01/12/17 01/30/17 Unknown Rx 5/325 mg] Insulin Glargine [Lantus VIAL] 40 units SQ QHS #1 vial 02/04/17 Unknown Rx Metoclopramide [Reglan TAB] 10 mg PO ACHS PRN #30 tablet 02/04/17 Unknown Rx Diclofenac Potassium 50 mg PO BID #20 tablet 02/12/17 Unknown Rx ED Physical Exam - General Limitations: No Limitations General appearance: alert, in no apparent distress - Head Head exam: Present: atraumatic, normocephalic - Eye Eye exam: Present: normal appearance - ENT ENT exam: Present: mucous membranes moist - Neck Neck exam: Present: normal inspection - Respiratory Respiratory exam: Present: normal lung sounds bilaterally. Absent: respiratory distress - Cardiovascular Cardiovascular Exam: Present: regular rate, normal rhythm, other (reproducible chest wall tenderness in right and left chest). Absent: systolic murmur, diastolic murmur, rubs, gallop - GI/Abdominal GI/Abdominal exam: Present: soft, normal bowel sounds - Rectal Rectal exam: Present: deferred - Extremities Exam Extremities exam: Present: normal inspection - Back Exam Back exam: Present: normal inspection - Neurological Exam Neurological exam: Present: alert, oriented X3 - Psychiatric Psychiatric exam: Present: normal affect, normal mood - Skin Skin exam: Present: warm, dry, intact, normal color. Absent: rash ED Course Vital Signs 02/12/17 02/12/17 02/12/17 11:20 14:34 14:40 Temperature 98.2 F Pulse Rate 93 H 89 85 Respiratory 20 18 15 Rate Blood Pressure 106/72 153/93 Blood Pressure [Left] O2 Sat by Pulse 100 100 94 Oximetry 02/12/17 02/12/17 02/12/17 14:50 15:00 15:10 Temperature Pulse Rate 84 85 85 Respiratory 28 H 24 32 H Rate Blood Pressure 153/93 153/93 153/93 Blood Pressure [Left] O2 Sat by Pulse 98 92 98 Oximetry 02/12/17 02/12/17 02/12/17 15:20 15:30 15:39 Temperature 98.2 F Pulse Rate 89 87 70 Respiratory 16 18 16 Rate Blood Pressure 153/93 142/87 Blood Pressure 130/81 [Left] O2 Sat by Pulse 99 99 98 Oximetry 02/12/17 02/12/17 02/12/17 15:40 15:50 16:00 Temperature Pulse Rate 90 92 H 89 Respiratory 17 13 30 H Rate Blood Pressure 142/87 142/87 156/90 Blood Pressure [Left] O2 Sat by Pulse 96 99 99 Oximetry 02/12/17 02/12/17 02/12/17 16:10 16:20 16:30 Temperature Pulse Rate 91 H 87 88 Respiratory 29 H 20 15 Rate Blood Pressure 156/90 142/87 152/88 Blood Pressure [Left] O2 Sat by Pulse 98 99 96 Oximetry 02/12/17 02/12/17 02/12/17 16:40 16:50 17:00 Temperature Pulse Rate 89 91 H 88 Respiratory 17 18 29 H Rate Blood Pressure 152/88 152/88 142/83 Blood Pressure [Left] O2 Sat by Pulse 97 98 97 Oximetry 02/12/17 02/12/17 02/12/17 17:10 17:20 17:30 Temperature Pulse Rate 92 H 87 87 Respiratory 14 17 12 Rate Blood Pressure 142/83 142/83 140/96 Blood Pressure [Left] O2 Sat by Pulse 99 97 99 Oximetry ED Medical Decision Making - Lab Data Result diagrams: 02/12/17 12:07 02/12/17 12:07 Critical care attestation.: If time is entered above; I have spent that time in minutes in the direct care of this critically ill patient, excluding procedure time. ED Disposition Clinical Impression: Chest pain Disposition: DISCHARGED TO HOME OR SELFCARE Is pt being admited?: No Does the pt Need Aspirin: No Condition: Good Instructions: Chest Pain (ED), Costochondritis (ED) Prescriptions: Diclofenac Potassium 50 mg PO BID #20 tablet Referrals: PRIMARY CARE, [Primary Care Provider] - 3-5 Days Time of Disposition: 19:25
--- NOTE | 2017-02-13 09:53 | XRay Report ---
AP CHEST: HISTORY: chest pain AP view of the chest demonstrates a normal mediastinal and cardiac contour with clear lungs and normal bony and soft tissue structures. Right IJ dialysis catheter terminates near the cavoatrial junction. No change since 12/19/16. IMPRESSION: Unremarkable AP chest.
== END 2017-02-12 19:41 | disposition home or self-care (01) ==
LOC: ED 11:18
DX: R07.9 Chest pain, unspecified (principal); I10 Essential (primary) hypertension; G45.9 Transient cerebral ischemic attack, unspecified; I25.2 Old myocardial infarction; E11.9 Type 2 diabetes mellitus without complications; K31.84 Gastroparesis; Z79.4 Long term (current) use of insulin
CPT/HCPCS: 36415; 71010; 80048; 80061; 84484; 85007; 85025; 85610; 85730; 93005; 93010; 96361; 96374; 99285; J1885; J7030

== ENCOUNTER 2017-02-15 07:57 | Outpatient (CLI) | payer BC ==
[2017-02-15] MEDS ORDERED: XYLOCAINE TOPICAL 2% TP ONE ×2 (08:24→09:56)
== END 2017-02-15 07:58 | disposition home or self-care (01) ==
LOC: WOUND 07:57
PROVIDERS: ATTEND Podiatrist
DX: T25.232D Burn of second degree of left toe(s) (nail), subsequent encounter (principal); E11.621 Type 2 diabetes mellitus with foot ulcer; L97.522 Non-pressure chronic ulcer of other part of left foot with fat layer exposed; L97.523 Non-pressure chronic ulcer of other part of left foot with necrosis of muscle; E11.40 Type 2 diabetes mellitus with diabetic neuropathy, unspecified; I96 Gangrene, not elsewhere classified; K21.9 Gastro-esophageal reflux disease without esophagitis; E11.22 Type 2 diabetes mellitus with diabetic chronic kidney disease; I12.0 Hypertensive chronic kidney disease with stage 5 chronic kidney disease or end stage renal disease; N18.6 End stage renal disease; Z99.2 Dependence on renal dialysis; Z86.73 Personal history of transient ischemic attack (TIA), and cerebral infarction without residual deficits; X08.8XXD Exposure to other specified smoke, fire and flames, subsequent encounter

== ENCOUNTER 2017-02-21 16:02 | Outpatient (CLI) | payer BC ==
--- NOTE | 2017-02-21 16:37 | XRay Report ---
Left foot 3 views: History: Bony injury. Findings: Deformities are identified at the mid diaphysis of the second metatarsal and at the third toe mid digit probably related to previous surgical resection. No periosteal reaction or lytic lesion. No acute fracture. Impression: Findings as detailed above. The
== END 2017-02-21 16:03 | disposition home or self-care (01) ==
LOC: XRAY 16:02
PROVIDERS: ATTEND Podiatrist
DX: L97.529 Non-pressure chronic ulcer of other part of left foot with unspecified severity (principal); S99.822D Other specified injuries of left foot, subsequent encounter; X58.XXXD Exposure to other specified factors, subsequent encounter

== ENCOUNTER 2017-02-22 07:56 | Outpatient (CLI) | payer BC ==
[2017-02-22] MEDS ORDERED: XYLOCAINE TOPICAL 4% TP ONE ×2 (08:01→08:38)
[2017-02-22] MEDS ORDERED: DAKIN'S FULL STRENGTH ONE (08:58)
[2017-02-23] MEDS ORDERED: DAKIN'S FULL STRENGTH TP ONE (08:30)
== END 2017-02-22 07:57 | disposition home or self-care (01) ==
LOC: WOUND 07:56
PROVIDERS: ATTEND Podiatrist
DX: E11.621 Type 2 diabetes mellitus with foot ulcer (principal); L97.522 Non-pressure chronic ulcer of other part of left foot with fat layer exposed; L97.523 Non-pressure chronic ulcer of other part of left foot with necrosis of muscle; T25.332D Burn of third degree of left toe(s) (nail), subsequent encounter; E11.40 Type 2 diabetes mellitus with diabetic neuropathy, unspecified; E11.52 Type 2 diabetes mellitus with diabetic peripheral angiopathy with gangrene; Z86.73 Personal history of transient ischemic attack (TIA), and cerebral infarction without residual deficits; E11.22 Type 2 diabetes mellitus with diabetic chronic kidney disease; I12.0 Hypertensive chronic kidney disease with stage 5 chronic kidney disease or end stage renal disease; N18.6 End stage renal disease; K21.9 Gastro-esophageal reflux disease without esophagitis; Z99.2 Dependence on renal dialysis; X08.8XXD Exposure to other specified smoke, fire and flames, subsequent encounter

== ENCOUNTER 2017-02-28 07:43 | Outpatient (CLI) | payer BC | END 2017-02-28 07:44 | disposition home or self-care (01) | LOC: WOUND 07:43 | PROVIDERS: ATTEND Surgery | DX: E11.621 Type 2 diabetes mellitus with foot ulcer (principal); L97.523 Non-pressure chronic ulcer of other part of left foot with necrosis of muscle; E11.52 Type 2 diabetes mellitus with diabetic peripheral angiopathy with gangrene; T25.332D Burn of third degree of left toe(s) (nail), subsequent encounter; E11.40 Type 2 diabetes mellitus with diabetic neuropathy, unspecified; K21.9 Gastro-esophageal reflux disease without esophagitis; E11.22 Type 2 diabetes mellitus with diabetic chronic kidney disease; I12.0 Hypertensive chronic kidney disease with stage 5 chronic kidney disease or end stage renal disease; N18.6 End stage renal disease; Z86.73 Personal history of transient ischemic attack (TIA), and cerebral infarction without residual deficits; Z99.2 Dependence on renal dialysis; Z89.9 Acquired absence of limb, unspecified; X08.8XXD Exposure to other specified smoke, fire and flames, subsequent encounter | CPT/HCPCS: 82962; G0277; 99183 ==

== ENCOUNTER 2017-03-01 07:59 | Outpatient (CLI) | payer BC ==
[2017-03-01] MEDS ORDERED: XYLOCAINE TOPICAL 4% TP ONE ×2 (10:45→14:33)
== END 2017-03-01 08:00 | disposition home or self-care (01) ==
LOC: WOUND 07:59
PROVIDERS: ATTEND Podiatrist
DX: E11.621 Type 2 diabetes mellitus with foot ulcer (principal); L97.523 Non-pressure chronic ulcer of other part of left foot with necrosis of muscle; E11.40 Type 2 diabetes mellitus with diabetic neuropathy, unspecified; E11.52 Type 2 diabetes mellitus with diabetic peripheral angiopathy with gangrene; I10 Essential (primary) hypertension; K21.9 Gastro-esophageal reflux disease without esophagitis; E11.22 Type 2 diabetes mellitus with diabetic chronic kidney disease; I12.0 Hypertensive chronic kidney disease with stage 5 chronic kidney disease or end stage renal disease; N18.6 End stage renal disease; Z86.73 Personal history of transient ischemic attack (TIA), and cerebral infarction without residual deficits
CPT/HCPCS: 11042; 11043; 11044; 82962; 88302; 88311; G0277; 99183

== ENCOUNTER 2017-03-03 08:05 | Outpatient (CLI) | payer BC | END 2017-03-03 08:06 | disposition home or self-care (01) | LOC: WOUND 08:05 | PROVIDERS: ATTEND Internal Medicine | DX: T25.332D Burn of third degree of left toe(s) (nail), subsequent encounter (principal); E11.621 Type 2 diabetes mellitus with foot ulcer; L97.523 Non-pressure chronic ulcer of other part of left foot with necrosis of muscle; E11.52 Type 2 diabetes mellitus with diabetic peripheral angiopathy with gangrene; E11.40 Type 2 diabetes mellitus with diabetic neuropathy, unspecified; E11.22 Type 2 diabetes mellitus with diabetic chronic kidney disease; I12.0 Hypertensive chronic kidney disease with stage 5 chronic kidney disease or end stage renal disease; N18.6 End stage renal disease; Z99.2 Dependence on renal dialysis; Z86.73 Personal history of transient ischemic attack (TIA), and cerebral infarction without residual deficits; K21.9 Gastro-esophageal reflux disease without esophagitis; X08.8XXD Exposure to other specified smoke, fire and flames, subsequent encounter | CPT/HCPCS: 82962; G0277; 99183 ==

== ENCOUNTER 2017-03-04 07:48 | Outpatient (CLI) | payer BC | END 2017-03-04 07:49 | disposition home or self-care (01) | LOC: WOUND 07:48 | PROVIDERS: ATTEND Podiatrist | DX: T25.332D Burn of third degree of left toe(s) (nail), subsequent encounter (principal); E11.621 Type 2 diabetes mellitus with foot ulcer; E11.40 Type 2 diabetes mellitus with diabetic neuropathy, unspecified; L97.522 Non-pressure chronic ulcer of other part of left foot with fat layer exposed; E11.52 Type 2 diabetes mellitus with diabetic peripheral angiopathy with gangrene; L97.523 Non-pressure chronic ulcer of other part of left foot with necrosis of muscle; L03.116 Cellulitis of left lower limb; K21.9 Gastro-esophageal reflux disease without esophagitis; E11.22 Type 2 diabetes mellitus with diabetic chronic kidney disease; I12.0 Hypertensive chronic kidney disease with stage 5 chronic kidney disease or end stage renal disease; N18.6 End stage renal disease; Z86.73 Personal history of transient ischemic attack (TIA), and cerebral infarction without residual deficits; X08.8XXD Exposure to other specified smoke, fire and flames, subsequent encounter | CPT/HCPCS: 82962; G0277; 99183 ==

== ENCOUNTER 2017-03-09 07:56 | Outpatient (CLI) | payer BC | END 2017-03-09 07:57 | disposition home or self-care (01) | LOC: WOUND 07:56 | PROVIDERS: ATTEND Surgery | DX: T25.332D Burn of third degree of left toe(s) (nail), subsequent encounter (principal); E11.621 Type 2 diabetes mellitus with foot ulcer; L97.521 Non-pressure chronic ulcer of other part of left foot limited to breakdown of skin; E11.40 Type 2 diabetes mellitus with diabetic neuropathy, unspecified; E11.52 Type 2 diabetes mellitus with diabetic peripheral angiopathy with gangrene; A48.0 Gas gangrene; L03.116 Cellulitis of left lower limb; Z86.73 Personal history of transient ischemic attack (TIA), and cerebral infarction without residual deficits; K21.9 Gastro-esophageal reflux disease without esophagitis; E11.22 Type 2 diabetes mellitus with diabetic chronic kidney disease; I12.0 Hypertensive chronic kidney disease with stage 5 chronic kidney disease or end stage renal disease; N18.6 End stage renal disease; Z99.2 Dependence on renal dialysis; X08.8XXD Exposure to other specified smoke, fire and flames, subsequent encounter | CPT/HCPCS: 82962; G0277; 99183 ==

== ENCOUNTER 2017-03-10 08:03 | Outpatient (CLI) | payer BC | END 2017-03-10 08:04 | disposition home or self-care (01) | LOC: WOUND 08:03 | PROVIDERS: ATTEND Internal Medicine | DX: T25.332D Burn of third degree of left toe(s) (nail), subsequent encounter (principal); E11.621 Type 2 diabetes mellitus with foot ulcer; L97.521 Non-pressure chronic ulcer of other part of left foot limited to breakdown of skin; E11.40 Type 2 diabetes mellitus with diabetic neuropathy, unspecified; L03.116 Cellulitis of left lower limb; E11.52 Type 2 diabetes mellitus with diabetic peripheral angiopathy with gangrene; A48.0 Gas gangrene; Z86.73 Personal history of transient ischemic attack (TIA), and cerebral infarction without residual deficits; K21.9 Gastro-esophageal reflux disease without esophagitis; E11.22 Type 2 diabetes mellitus with diabetic chronic kidney disease; I12.0 Hypertensive chronic kidney disease with stage 5 chronic kidney disease or end stage renal disease; N18.6 End stage renal disease; X08.8XXD Exposure to other specified smoke, fire and flames, subsequent encounter | CPT/HCPCS: 82962; G0277; 99183 ==

== ENCOUNTER 2017-03-11 08:06 | Outpatient (CLI) | payer BC ==
[2017-03-11] MEDS ORDERED: XYLOCAINE TOPICAL 4% TP ONE ×2 (11:16→19:57)
== END 2017-03-11 08:07 | disposition home or self-care (01) ==
LOC: WOUND 08:06
PROVIDERS: ATTEND Podiatrist
DX: T25.332D Burn of third degree of left toe(s) (nail), subsequent encounter (principal); E11.621 Type 2 diabetes mellitus with foot ulcer; L97.521 Non-pressure chronic ulcer of other part of left foot limited to breakdown of skin; E11.40 Type 2 diabetes mellitus with diabetic neuropathy, unspecified; L03.116 Cellulitis of left lower limb; E11.52 Type 2 diabetes mellitus with diabetic peripheral angiopathy with gangrene; A48.0 Gas gangrene; E11.22 Type 2 diabetes mellitus with diabetic chronic kidney disease; I12.0 Hypertensive chronic kidney disease with stage 5 chronic kidney disease or end stage renal disease; N18.6 End stage renal disease; K21.9 Gastro-esophageal reflux disease without esophagitis; Z86.73 Personal history of transient ischemic attack (TIA), and cerebral infarction without residual deficits; Z99.2 Dependence on renal dialysis; X08.8XXD Exposure to other specified smoke, fire and flames, subsequent encounter
CPT/HCPCS: 11043; 11044; 82962; 88304; G0277; 88305; 88311; 99183

== ENCOUNTER 2017-03-14 08:07 | Outpatient (CLI) | payer BC | END 2017-03-14 08:08 | disposition home or self-care (01) | LOC: WOUND 08:07 | PROVIDERS: ATTEND Internal Medicine | DX: T25.332D Burn of third degree of left toe(s) (nail), subsequent encounter (principal); T31.0 Burns involving less than 10% of body surface; E11.621 Type 2 diabetes mellitus with foot ulcer; L97.522 Non-pressure chronic ulcer of other part of left foot with fat layer exposed; L97.523 Non-pressure chronic ulcer of other part of left foot with necrosis of muscle; E11.40 Type 2 diabetes mellitus with diabetic neuropathy, unspecified; E11.52 Type 2 diabetes mellitus with diabetic peripheral angiopathy with gangrene; E11.22 Type 2 diabetes mellitus with diabetic chronic kidney disease; I12.0 Hypertensive chronic kidney disease with stage 5 chronic kidney disease or end stage renal disease; N18.6 End stage renal disease; K21.9 Gastro-esophageal reflux disease without esophagitis; Z99.2 Dependence on renal dialysis; Z86.73 Personal history of transient ischemic attack (TIA), and cerebral infarction without residual deficits; Z89.9 Acquired absence of limb, unspecified; X08.8XXD Exposure to other specified smoke, fire and flames, subsequent encounter | CPT/HCPCS: 82962; G0277; 99183 ==

== ENCOUNTER 2017-03-15 08:07 | Outpatient (CLI) | payer BC ==
[2017-03-15] MEDS ORDERED: XYLOCAINE TOPICAL 4% TP ONE (11:00)
== END 2017-03-15 08:08 | disposition home or self-care (01) ==
LOC: WOUND 08:07
PROVIDERS: ATTEND Surgery
DX: T25.332D Burn of third degree of left toe(s) (nail), subsequent encounter (principal); T31.0 Burns involving less than 10% of body surface; E11.621 Type 2 diabetes mellitus with foot ulcer; L97.523 Non-pressure chronic ulcer of other part of left foot with necrosis of muscle; E11.40 Type 2 diabetes mellitus with diabetic neuropathy, unspecified; E11.52 Type 2 diabetes mellitus with diabetic peripheral angiopathy with gangrene; E11.22 Type 2 diabetes mellitus with diabetic chronic kidney disease; I12.0 Hypertensive chronic kidney disease with stage 5 chronic kidney disease or end stage renal disease; N18.6 End stage renal disease; K21.9 Gastro-esophageal reflux disease without esophagitis; Z99.2 Dependence on renal dialysis; Z89.9 Acquired absence of limb, unspecified; Z86.73 Personal history of transient ischemic attack (TIA), and cerebral infarction without residual deficits; X08.8XXD Exposure to other specified smoke, fire and flames, subsequent encounter
CPT/HCPCS: 11042; 82962; G0277; 99183

== ENCOUNTER 2017-03-16 08:06 | Outpatient (CLI) | payer BC | END 2017-03-16 08:07 | disposition home or self-care (01) | LOC: WOUND 08:06 | PROVIDERS: ATTEND Internal Medicine | DX: T25.332D Burn of third degree of left toe(s) (nail), subsequent encounter (principal); T31.0 Burns involving less than 10% of body surface; E11.621 Type 2 diabetes mellitus with foot ulcer; L97.522 Non-pressure chronic ulcer of other part of left foot with fat layer exposed; L97.523 Non-pressure chronic ulcer of other part of left foot with necrosis of muscle; E11.40 Type 2 diabetes mellitus with diabetic neuropathy, unspecified; I96 Gangrene, not elsewhere classified; K21.9 Gastro-esophageal reflux disease without esophagitis; N18.6 End stage renal disease; Z86.73 Personal history of transient ischemic attack (TIA), and cerebral infarction without residual deficits; Z99.2 Dependence on renal dialysis; Z89.9 Acquired absence of limb, unspecified; X08.8XXD Exposure to other specified smoke, fire and flames, subsequent encounter | CPT/HCPCS: 82962; G0277; 99183 ==

== ENCOUNTER 2017-03-23 08:04 | Outpatient (CLI) | payer BC | END 2017-03-23 08:05 | disposition home or self-care (01) | LOC: WOUND 08:04 | PROVIDERS: ATTEND Surgery | DX: T25.332D Burn of third degree of left toe(s) (nail), subsequent encounter (principal); T31.0 Burns involving less than 10% of body surface; E11.621 Type 2 diabetes mellitus with foot ulcer; L97.523 Non-pressure chronic ulcer of other part of left foot with necrosis of muscle; E11.40 Type 2 diabetes mellitus with diabetic neuropathy, unspecified; E11.52 Type 2 diabetes mellitus with diabetic peripheral angiopathy with gangrene; K21.9 Gastro-esophageal reflux disease without esophagitis; E11.22 Type 2 diabetes mellitus with diabetic chronic kidney disease; I12.0 Hypertensive chronic kidney disease with stage 5 chronic kidney disease or end stage renal disease; N18.6 End stage renal disease; Z99.2 Dependence on renal dialysis; Z86.73 Personal history of transient ischemic attack (TIA), and cerebral infarction without residual deficits; Z89.9 Acquired absence of limb, unspecified; X08.8XXD Exposure to other specified smoke, fire and flames, subsequent encounter | CPT/HCPCS: 82962; G0277; 99183 ==

== ENCOUNTER 2017-07-07 09:41 | Day surgery (SDC) | payer MEDICARE ==
[~2017-07-07 09:41] MED LIST: ANCEF/STERILE WATER 2 GM/20 ML 2 GM/20 ML SYRINGE IV NR; NACL 0.9% 1000 ML 1,000 ML IV SCH
[2017-07-07 10:56] LABS: BUN/Creatinine Ratio 6.5; Calcium 8.1 mg/dL (8.4-10.2); Potassium 4.4 mmol/L (3.6-5.0)
[2017-07-07] MEDS ORDERED: BENADRYL IV ONE (11:30)
[2017-07-07] MEDS ORDERED: PEPCID IV NR (11:30)
[2017-07-07] MEDS: XYLOCAINE 2% INFILTRATI ONE ×3 (11:32→15:06)
[2017-07-07] MEDS ORDERED: APRESOLINE IV ONE (11:51)
[2017-07-07] MEDS ORDERED: PEPCID IV ONE (12:44)
[2017-07-07] MEDS ORDERED: HEPARIN/NS 5000 UNIT/500ML(CATH LAB) 500 ML IR ONE ×2 (13:15→15:06)
[2017-07-07] MEDS ORDERED: VERSED ONE (13:15)
[2017-07-07] MEDS ORDERED: SUBLIMAZE ONE (13:16)
[2017-07-07] MEDS ORDERED: WATER FOR INJ (PF) 0 ML ONE (13:16)
[2017-07-07] MEDS ORDERED: CATHFLO ONE ×2 (13:16→13:59)
[2017-07-07] MEDS ORDERED: NACL 0.9% 250ML 250 ML ONE (13:16)
[2017-07-07] MEDS ORDERED: ANCEF/STERILE WATER 2 GM/20 ML 2 GM/20 ML SYRINGE IV ONE (13:21)
[2017-07-07] MEDS ORDERED: HEPARIN 10,000 UNITS/10 ML ONE (13:44)
[2017-07-07] MEDS ORDERED: WATER FOR INJ (PF) 10 ML ONE (14:00)
[2017-07-07] MEDS ORDERED: DILAUDID IV ONE (16:13)
[2017-07-07] MEDS ORDERED: DILAUDID ONE (16:15)
[2017-07-07 16:46] VITALS: BP 131/81
--- NOTE | 2017-07-07 17:14 | Vascular Lab Report ---
MISCELLANEOUS VESSEL IDENTIFICATION: The arteriovenous access was identified in the right upper extremity and and under real-time ultrasound guidance was cannulated. IMPRESSION: Successful ultrasound guided cannulation of the arteriovenous access site.
--- NOTE | 2017-07-07 20:16 | Operative Report ---
Operative Report Operative Report: Procedure: 1. Angiography of a right upper extremity arteriovenous graft. 2. Pharmacologic thrombolysis of the right upper extremity AVG. 3. Right upper extremity AV graft mechanical thrombectomy with a Trerotola device. 4. Balloon angioplasty of the right axillary vein. 5. Sonographic evaluation of the right upper extremity dialysis access. Date: 07/07/2017 Physician: Fahad Monroy MD Indication: 36-year-old male with end-stage renal disease, with a clotted right upper extremity AV graft. Technique: The patient was placed in the supine position and prepped and draped in the usual sterile fashion. A timeout was performed. Sonographic evaluation of the right upper extremity AV graft was performed, and permanent images were acquired. Local anesthetic was administered. Under continuous ultrasound guidance, the graft just central to the anastomosis was accessed with a 21-gauge needle. This was exchanged over an 018 wire for a 4 [place] exchange dilator. This was ultimately exchanged over a J-wire for a 7 [place] short vascular sheath. The J- wire was advanced to the inferior vena cava and removed via a vertebral catheter. Via thev ertebral catheter, central venography was performed. A region of narrowing in the axillary vein was treated with 7 mm balloon angioplasty. 4 mg of TPA was mixed with contrast, and TPA was infused via the vertebral catheter throughout the graft. This was left to dwell for 5 minutes. A Trerotola device was advanced into the graft. Prior to turning on the device , the basket became stuck in the axillary vein. After prolonged effort, utilizing a variety of techniques, the basket was eventually freed and the device was removed. Angiography was performed immediately thereafter to ensure that there was no contrast extravasation. The device was reinserted, and mechanical thrombectomy was performed. Thereafter, a Graham balloon was advanced. The balloon was inflated and used to push any residual clot centrally. Angiography was again performed. Due to a very small amount of room between a stent and the 7 Canadian sheath, the sheath had to be removed prior to access towards the anastomosis. The access site was closed with a 3-0 Vicryl suture. Under fluoroscopic guidance, the graft was again accessed with a 21-gauge needle directed towards the anastomosis. In a similar fashion as before, a vertebral catheter was ultimately maneuvered into the brachial artery. Brachial arteriography was performed. The Graham balloon was used to remove clot from the anastomosis. Due to a relative lack of purchase, the 6 Canadian sheath directed toward the anastomosis was inadvertently dislodged. This resulted in contrast extravasation/hematoma into the soft tissues of the right bicep. It was then decided to stop the procedure and bring the patient back to the outpatient center tomorrow. A 3-0 Vicryl suture was placed at the second access site, and sterile dressings were applied. An additional 5 minutes of pressure was applied to ensure hemostasis. The patient was transported back to the recovery area in stable condition. Findings: 1. Sonography reveals a completely thrombosed graft extending from the anastomosis to the axillary vein. 2. There were several regions of narrowing in the axillary vein. These measured up to 80% narrowing. Patency was restored after 7 mm balloon angioplasty. 3. After mechanical and pharmacological thrombectomy, flow was significantly improved in the graft, although there was residual thrombus seen. 4. There was significant narrowing of the arterial anastomosis. However, the procedure had to be aborted before full anabaptism of patency could be achieved. 5. There was no thrill or pulsatility at the start of the procedure. At the end of the procedure, a thrill was restored. In order to complete treatment, the patient will return to our outpatient center tomorrow to address the arterial anastomotic narrowing and to remove any residual clot from the graft. EBL: 10 cc
== END 2017-07-07 17:15 | disposition home or self-care (01) ==
LOC: CATHLABREC 09:41
PROVIDERS: ATTEND Radiology Diagnostic Radiology
DX: T82.868A Thrombosis due to vascular prosthetic devices, implants and grafts, initial encounter (principal); Y83.2 Surgical operation with anastomosis, bypass or graft as the cause of abnormal reaction of the patient, or of later complication, without mention of misadventure at the time of the procedure; E11.22 Type 2 diabetes mellitus with diabetic chronic kidney disease; I12.0 Hypertensive chronic kidney disease with stage 5 chronic kidney disease or end stage renal disease; N18.6 End stage renal disease; Z99.2 Dependence on renal dialysis; Z86.73 Personal history of transient ischemic attack (TIA), and cerebral infarction without residual deficits; Z82.49 Family history of ischemic heart disease and other diseases of the circulatory system; Z83.3 Family history of diabetes mellitus; Z98.890 Other specified postprocedural states
CPT/HCPCS: 36415; 36905; 76937; 80048; 96372; 96374; 96375; C1725; C1751; C1757; C1769; C1894; J0360; J0690; J1170; J1200; J1644; J1720; J2250; J2997; J3010; J7050; J1815; Q9967

== ENCOUNTER 2017-08-10 10:15 | Day surgery (SDC) | payer BC, MEDICARE ==
[2017-08-10 11:34] LABS: Calcium 8.1 mg/dL (8.4-10.2); Chloride 93.7 mmol/L (98-107)
[2017-08-10 11:43] LABS: Potassium 4.5 mmol/L (3.6-5.0)
[2017-08-10] MEDS ORDERED: BENADRYL IV ONE (11:55)
[2017-08-10] MEDS ORDERED: SUBLIMAZE ONE (12:55)
[2017-08-10] MEDS ORDERED: NACL 0.9% 250ML 250 ML ONE ×2 (12:55→12:58)
[2017-08-10] MEDS ORDERED: HEPARIN/NS 5000 UNIT/500ML(CATH LAB) 500 ML IR ONE ×2 (12:55→13:52)
[2017-08-10] MEDS ORDERED: VERSED ONE (12:55)
[2017-08-10] MEDS ORDERED: XYLOCAINE 2% INFILTRATI ONE (12:55)
[2017-08-10] MEDS ORDERED: ANCEF/STERILE WATER 2 GM/20 ML 2 GM/20 ML SYRINGE IV ONE (13:02)
[2017-08-10] MEDS ORDERED: WATER FOR INJ (PF) 10 ML ONE (13:22)
[2017-08-10] MEDS: HEPARIN 10,000 UNITS/10 ML ONE ×2 (13:27→14:32)
[2017-08-10] MEDS: CATHFLO ONE ×3 (13:33→14:56)
[2017-08-10] MEDS ORDERED: CATHFLO ONE (15:08)
--- NOTE | 2017-08-10 15:27 | Post Operative Note ---
Pre-op diagnosis: ESRD Post-op diagnosis: same Findings: Clotted RUE AVG Severe axillary vein stenosis Procedure: Declot Anesthesia: local Surgeon: ZION CALDWELL Estimated blood loss: minimal Pathology: none Condition: stable Disposition: same day
[2017-08-10] MEDS ORDERED: CATAPRES PO ONE (16:08)
[2017-08-10 16:13] VITALS: BP 158/103
[2017-08-10] MEDS ORDERED: CATAPRES ONE (16:13)
--- NOTE | 2017-08-11 08:08 | Vascular Lab Report ---
MISCELLANEOUS VESSEL IDENTIFICATION: The arteriovenous access was identified in the right upper extremity and under real-time ultrasound guidance was cannulated. IMPRESSION: Successful ultrasound guided cannulation of the arteriovenous access site.
--- NOTE | 2017-08-11 14:01 | Operative Report ---
Operative Report Operative Report: Procedure: 1. Angiography of a right upper extremity arteriovenous graft. 2. Pharmacologic thrombolysis of the right upper extremity AVG. 3. Right upper extremity AV graft mechanical thrombectomy with a Trerotola device. 4. Balloon angioplasty of the right axillary vein. 5. Sonographic evaluation of the right upper extremity dialysis access. Date: 08/10/2017 Physician: Fahad Monroy MD Indication: 36-year-old male with end-stage renal disease, with a clotted right upper extremity AV graft. Technique: The patient was placed in the supine position and prepped and draped in the usual sterile fashion. A timeout was performed. Sonographic evaluation of the right upper extremity AV graft was performed, and permanent images were acquired. Local anesthetic was administered. Under continuous ultrasound guidance, the graft just central to the anastomosis was accessed with a 21-gauge needle. This was exchanged over an 018 wire for a 4 [place] exchange dilator. This was ultimately exchanged over a J-wire for a 7 [place] short vascular sheath. There was difficulty in passing a wire centrally. Venography was performed for evaluation. A multitude of wires and catheters were used to traverse to the central veins. Previous imaging was also reviewed. Ultimately, the combination of a [place] wire and 035 [place] Blazer was used to get access to the superior vena cava. The short 7 [place] vascular sheath was then exchanged for a 23 cm 7 [place] vascular sheath. Balloon angioplasty of the axillary vein was then performed. 4 mg of TPA was mixed with contrast, and TPA was infused via the vertebral catheter throughout the graft. This was left to dwell for 5 minutes. A Trerotola device was advanced into the graft, and mechanical thrombectomy was performed. Angiography was again performed. Under ultrasound guidance, the graft was again accessed with a 21-gauge needle directed towards the anastomosis. In a similar fashion as before, a vertebral catheter was ultimately maneuvered into the brachial artery. Brachial arteriography was performed. An additional 4 mg of TPA was administered towards the anastomosis. Mechanical thrombectomy was then performed with the Trerotola device. Balloon angioplasty of the anastomosis was then performed with an 8 mm conquest balloon. Final imaging was performed. Both sheaths were removed, and hemostasis was achieved with a combination of manual pressure and pursestring sutures. Sterile dressings were placed. The patient tolerated the procedure well without immediate complication. Findings: 1. Sonography reveals a completely thrombosed graft extending from the anastomosis to the axillary vein. 2. There is near complete occlusion of the axillary vein branch which is maximally in line with the outflow tract. A [place] Blazer catheter had to be used in order to traverse the region of stenosis. After balloon angioplasty, patency was only restored to approximately 30%. However, multiple collateral outflow tracts distal to the venous anastomosis help to provide adequate outflow. 3. After mechanical and pharmacological thrombectomy, flow was significantly improved in the graft, although there was residual thrombus seen. 4. There was no thrill or pulsatility at the start of the procedure. 5. A region of chronic thrombus 2-3 cm central to the anastomosis is likely a nidus for repeat graft clotting. After discussion with my surgical colleagues, I have set up the patient for revision of his graft in the operating room, likely next week. EBL: 10 cc
== END 2017-08-10 16:45 | disposition home or self-care (01) ==
LOC: CATHLABREC 10:15
PROVIDERS: ATTEND Radiology Diagnostic Radiology
DX: T82.868A Thrombosis due to vascular prosthetic devices, implants and grafts, initial encounter (principal); Y83.2 Surgical operation with anastomosis, bypass or graft as the cause of abnormal reaction of the patient, or of later complication, without mention of misadventure at the time of the procedure; E11.22 Type 2 diabetes mellitus with diabetic chronic kidney disease; I12.0 Hypertensive chronic kidney disease with stage 5 chronic kidney disease or end stage renal disease; N18.6 End stage renal disease; I25.10 Atherosclerotic heart disease of native coronary artery without angina pectoris; Z99.2 Dependence on renal dialysis; Z86.73 Personal history of transient ischemic attack (TIA), and cerebral infarction without residual deficits; Z98.890 Other specified postprocedural states; Z79.899 Other long term (current) drug therapy; Z79.4 Long term (current) use of insulin
CPT/HCPCS: 36415; 36905; 76937; 80048; 96374; 96375; C1725; C1751; C1757; C1769; C1894; J0690; J1200; J1644; J2250; J2930; J2997; J3010; J7050; Q9967

== ENCOUNTER 2017-08-14 08:21 | Inpatient (IN) | payer BC, MEDICARE ==
--- NOTE | 2017-08-14 08:43 | Emergency Department Report ---
ED General Adult HPI - General Chief complaint: Hyperglycemia Stated complaint: CHEST PAIN Time Seen by Provider: 08/14/17 08:38 Source: patient, EMS (ems notes not available at time of chart dictation), RN notes reviewed, old records reviewed Mode of arrival: Stretcher Limitations: No Limitations - History of Present Illness Initial comments: This is a 36-year-old male, this provider has evaluated the patient in the past. Nephrology: Dr. Médnez Gets dialysis Tuesday, Tuesday, Tuesday, last dialysis session was Tuesday, it was of normal length in duration, also has a history of hypertension, gastroparesis and diabetes. Patient presents to the ER complaining of headache, chest pain, abdominal cramping, nausea or vomiting, diaphoresis. His symptoms are constant. They started today. They do not have exacerbating or relieving factors. There is no hematemesis or bright red blood per rectum. There is no focal extremity weakness/numbness. Patient endorses compliance with medications and denies dietary indiscretions, there is no leg pain, there is no leg swelling, no recent trips greater than 4 hours, no recent hospital admissions. On his initial evaluation, the patient was in marked distress, tremulous, diaphoretic, tachycardic, and hypertensive. His blood pressure is in the mid 200s, he did not sound like he was in congestive heart failure, and a chest x- ray was clear Given diaphoresis, hypertension, complaint of chest pain, nausea, concern for aortic dissection/catastrophe. Patient treated empirically for presumed aortic disease with medical management, patient does endorse intolerance to IV dye, he is premedicated, and emergently consented by myself orally for CT angiogram of the chest, abdomen, pelvis. Esmolol, nitroglycerin drip ordered, and I discussed this with his private intermediate card tender, Dr. Franz, who agrees to arrange dialysis. At this point in time, the patient is still hypertensive and tachycardic, as well and nitroglycerin drip are pending, serial EKGs have been abnormal, but not morphologically consistent with STEMI, the patient is still endorsing pain. CT angiogram interpretation is pending, laboratory studies at this point in time demonstrate anion gap acidosis, with blood sugar of over 700. The patient will also be treated empirically for diabetic ketoacidosis. We will discussed with critical care insulation extruder operator, and cardiology on-call, if no aortic catastrophe or dissection is noted. -: Gradual Location: head, chest, abdomen, left, right, upper extremity, lower extremity Severity scale (0 -10): 8 Quality: aching Consistency: constant Improves with: none Worsens with: none Associated Symptoms: chest pain, diaphoresis, headaches, loss of appetite, malaise, nausea/vomiting, weakness - Related Data Home Medications Medication Instructions Recorded Confirmed Last Taken Insulin Regular, Human [HumuLIN R] 6 unit SQ AC 02/24/16 08/14/17 08/10/17 06:00 Vit B Comp C/Folic Acid/Vit D3 1 each PO QDAY 01/10/17 08/14/17 08/09/17 [Dialyvite 800 Plus D Wafer] cloNIDine [Catapres] 0.3 mg PO PRN PRN 07/07/17 08/14/17 08/10/17 05:00 Previous Rx's Medication Instructions Recorded Last Taken Type Insulin Glargine [Lantus VIAL] 40 units SQ QHS #1 vial 02/04/17 08/09/17 Rx Allergies Allergy/AdvReac Type Severity Reaction Status Date / Time iodine Allergy Severe Vomiting Verified 08/14/17 08:28 IV dye Allergy Severe Vomiting Uncoded 08/14/17 08:28 ED Review of Systems ROS: Stated complaint: CHEST PAIN Other details as noted in HPI Constitutional: malaise, weakness Eyes: denies: vision change ENT: denies: epistaxis Respiratory: see HPI Cardiovascular: chest pain Gastrointestinal: abdominal pain Genitourinary: as per HPI Musculoskeletal: as per HPI Skin: as per HPI Neurological: as per HPI Psychiatric: as per HPI ED Past Medical Hx - Past Medical History Hx Hypertension: Yes (Coreg ) Hx CVA: Yes (TIA's) Hx Heart Attack/AMI: Yes Hx Congestive Heart Failure: No Hx Diabetes: Yes Hx Deep Vein Thrombosis: No Hx Pulmonary Embolism: No Hx GERD: No Hx Liver Disease: No Hx Renal Disease: Yes (M-W-F) Hx Sickle Cell Disease: No Hx Arthritis: No Hx Headaches / Migraines: No Hx Seizures: No Hx Kidney Stones: No Hx Psychiatric Treatment: No Hx Asthma: No Hx COPD: No Hx Tuberculosis: No Hx Dementia: No Hx HIV: No Additional medical history: gastroparesis - Surgical History Hx Coronary Stent: No Hx Open Heart Surgery: No Hx Pacemaker: No Hx Internal Defibrillator: No Hx Cholecystectomy: No Hx Appendectomy: No Hx Breast Surgery: No Additional Surgical History: left eye surgery, right toe amputation, right chest vas cath. GRAFT RIGHT UPPER ARM - Social History Smoking Status: Never Smoker Substance Use Type: None - Medications Home Medications: Home Medications Medication Instructions Recorded Confirmed Last Taken Type Insulin Regular, Human [HumuLIN R] 6 unit SQ AC 02/24/16 08/14/17 08/10/17 06: 00 History Vit B Comp C/Folic Acid/Vit D3 1 each PO QDAY 01/10/17 08/14/17 08/09/17 History [Dialyvite 800 Plus D Wafer] Insulin Glargine [Lantus VIAL] 40 units SQ QHS #1 vial 02/04/17 08/14/17 Rx cloNIDine [Catapres] 0.3 mg PO PRN PRN 07/07/17 08/14/17 08/10/17 05:00 History ED Physical Exam - General Limitations: No Limitations General appearance: alert, anxious, in distress, other (patient has active diaphoresis) - Head Head exam: Present: atraumatic, normocephalic - Eye Eye exam: Present: normal appearance, EOMI. Absent: nystagmus - ENT ENT exam: Present: normal exam, normal orophraynx, mucous membranes moist, normal external ear exam - Neck Neck exam: Present: normal inspection, full ROM. Absent: tenderness, meningismus - Respiratory Respiratory exam: Present: normal lung sounds bilaterally. Absent: respiratory distress, wheezes, rales, rhonchi, stridor, chest wall tenderness, accessory muscle use, decreased breath sounds, prolonged expiratory - Cardiovascular Cardiovascular Exam: Present: normal rhythm, tachycardia, normal heart sounds. Absent: systolic murmur, diastolic murmur, rubs, gallop - GI/Abdominal GI/Abdominal exam: Present: soft, normal bowel sounds. Absent: distended, tenderness, guarding, rebound, rigid, pulsatile mass - Rectal Rectal exam: Present: deferred - Extremities Exam Extremities exam: Present: normal inspection, full ROM, normal capillary refill , other (there is a right upper extremity graft, no redness, pus or streaking.) . Absent: pedal edema, joint swelling, calf tenderness - Back Exam Back exam: Present: normal inspection, full ROM. Absent: CVA tenderness (L), muscle spasm, paraspinal tenderness, vertebral tenderness - Neurological Exam Neurological exam: Present: alert, oriented X3, other (Extraocular movements intact. Tongue midline. No facial droop. Facial sensation intact to light touch in the V1, V2, V3 distribution bilaterally. 5 and 5 strength in 4 extremities.. Sensation is intact to light touch in 4 extremities.). Absent: motor sensory deficit - Psychiatric Psychiatric exam: Present: anxious - Skin Skin exam: Present: warm, dry, intact, normal color. Absent: rash ED Course Vital Signs 08/14/17 08/14/17 08/14/17 08:24 08:25 08:26 Temperature Pulse Rate 121 H 120 H 120 H Respiratory 16 15 23 Rate Blood Pressure 191/117 191/117 O2 Sat by Pulse 100 100 100 Oximetry 08/14/17 08/14/17 08/14/17 08:28 08:30 08:31 Temperature 99.0 F Pulse Rate 118 H 119 H 117 H Respiratory 29 H 28 H 19 Rate Blood Pressure 191/117 191/117 186/118 O2 Sat by Pulse 100 100 100 Oximetry 08/14/17 08/14/17 08/14/17 08:32 08:34 08:36 Temperature Pulse Rate 114 H 116 H 117 H Respiratory 23 25 H 35 H Rate Blood Pressure 186/118 186/118 186/118 O2 Sat by Pulse 100 100 100 Oximetry 08/14/17 08/14/17 08/14/17 08:38 08:40 08:42 Temperature Pulse Rate 116 H 117 H 115 H Respiratory 28 H 21 22 Rate Blood Pressure 186/118 186/118 186/118 O2 Sat by Pulse 100 100 100 Oximetry 08/14/17 08/14/17 08/14/17 08:44 08:46 08:48 Temperature Pulse Rate 117 H 117 H 122 H Respiratory 16 16 33 H Rate Blood Pressure 186/118 186/118 186/118 O2 Sat by Pulse 100 100 100 Oximetry 08/14/17 08/14/17 08/14/17 08:50 08:52 08:54 Temperature 99.5 F Pulse Rate 122 H 116 H 117 H Respiratory 30 H 17 29 H Rate Blood Pressure 180/121 180/121 180/121 O2 Sat by Pulse 100 100 100 Oximetry 08/14/17 08/14/17 08/14/17 08:56 08:58 09:00 Temperature Pulse Rate 116 H 118 H 112 H Respiratory 25 H 16 11 L Rate Blood Pressure 180/121 180/121 199/102 O2 Sat by Pulse 100 100 Oximetry 08/14/17 08/14/17 08/14/17 09:02 09:04 09:06 Temperature Pulse Rate 111 H 116 H 117 H Respiratory 12 15 12 Rate Blood Pressure 181/101 181/101 181/101 O2 Sat by Pulse 100 100 100 Oximetry 08/14/17 08/14/17 08/14/17 09:07 09:08 09:10 Temperature Pulse Rate 117 H 114 H 114 H Respiratory 22 20 17 Rate Blood Pressure O2 Sat by Pulse 100 100 100 Oximetry 08/14/17 08/14/17 08/14/17 09:12 09:14 09:15 Temperature Pulse Rate 113 H 114 H 114 H Respiratory 20 21 20 Rate Blood Pressure 194/97 O2 Sat by Pulse 100 100 99 Oximetry 08/14/17 08/14/17 08/14/17 09:16 09:18 09:20 Temperature Pulse Rate 114 H 118 H 117 H Respiratory 18 20 14 Rate Blood Pressure 194/97 181/101 181/101 O2 Sat by Pulse 100 100 100 Oximetry 08/14/17 08/14/17 08/14/17 09:22 09:23 09:24 Temperature Pulse Rate 126 H 123 H 125 H Respiratory 11 L 19 24 Rate Blood Pressure 234/128 234/128 234/128 O2 Sat by Pulse 98 98 99 Oximetry 08/14/17 08/14/17 08/14/17 09:25 09:26 09:28 Temperature Pulse Rate 117 H 130 H 124 H Respiratory 14 10 L Rate Blood Pressure 200/109 234/128 234/128 O2 Sat by Pulse 100 100 Oximetry 08/14/17 08/14/17 08/14/17 09:29 09:46 09:50 Temperature Pulse Rate 105 H 102 H 103 H Respiratory 18 15 18 Rate Blood Pressure 179/97 179/97 179/97 O2 Sat by Pulse 99 100 99 Oximetry 08/14/17 08/14/17 08/14/17 10:00 10:10 10:20 Temperature Pulse Rate 104 H 101 H 102 H Respiratory 15 22 16 Rate Blood Pressure 193/107 166/90 169/103 O2 Sat by Pulse 98 100 99 Oximetry 1008/14/17 08/14/17 10:30 10:40 10:53 Temperature Pulse Rate 102 H 100 H 99 H Respiratory 20 17 14 Rate Blood Pressure 174/101 166/104 178/107 O2 Sat by Pulse 98 98 Oximetry 08/14/17 08/14/17 08/14/17 11:00 11:10 11:20 Temperature Pulse Rate 98 H 102 H 102 H Respiratory 18 16 16 Rate Blood Pressure 177/105 182/110 165/105 O2 Sat by Pulse 99 98 97 Oximetry 08/14/17 08/14/17 08/14/17 11:30 11:40 11:50 Temperature Pulse Rate 103 H 112 H 107 H Respiratory 14 15 13 Rate Blood Pressure 166/104 166/104 140/93 O2 Sat by Pulse 97 100 Oximetry 08/14/17 08/14/17 08/14/17 12:00 12:10 12:20 Temperature Pulse Rate 108 H 113 H 110 H Respiratory 15 20 19 Rate Blood Pressure 144/90 132/81 126/80 O2 Sat by Pulse 100 99 Oximetry 08/14/17 08/14/17 08/14/17 12:30 12:40 12:50 Temperature Pulse Rate 104 H 104 H 100 H Respiratory 15 15 22 Rate Blood Pressure 132/85 117/74 101/67 O2 Sat by Pulse 97 Oximetry 08/14/17 08/14/17 08/14/17 13:00 13:10 13:20 Temperature Pulse Rate 102 H 98 H Respiratory 14 15 12 Rate Blood Pressure 120/76 109/71 135/91 O2 Sat by Pulse 98 Oximetry 08/14/17 08/14/17 08/14/17 13:30 13:40 13:50 Temperature Pulse Rate 110 H 110 H 105 H Respiratory 16 16 12 Rate Blood Pressure 134/87 147/98 146/89 O2 Sat by Pulse 98 97 99 Oximetry 08/14/17 08/14/17 08/14/17 14:00 14:10 14:20 Temperature Pulse Rate 108 H 110 H 105 H Respiratory 14 21 12 Rate Blood Pressure 131/86 135/82 142/71 O2 Sat by Pulse 99 99 99 Oximetry 08/14/17 08/14/17 08/14/17 14:30 14:32 14:33 Temperature Pulse Rate 107 H 105 H 106 H Respiratory 16 15 15 Rate Blood Pressure 141/86 141/86 141/86 O2 Sat by Pulse 98 98 Oximetry - Reevaluation(s) Reevaluation #1: 08/14/17 10:[address] scan of the brain is negative. CT scan of the chest, abdomen, pelvis is negative, with the exception of nonspecific defect in the spleen, possibly concerning for splenic infarct. However no stenosis, dissection or thrombosis are noted on the angiogram. Patient appears much more comfortable his diaphoresis has resolved, still slightly tachycardic, hypertension is improving. Esmolol and nitroglycerin drip discontinued, Cardene drip initiated, repeat EKG pending, will discuss with cardiology. 08/14/17 10:20 Reevaluation #2: 08/14/17 10:53 Blood pressure improved. EKG #3 unchanged from prior. Patient looks much more comfortable, diaphoresis has resolved, hypertension has resolved. Nephrology here is evaluating the patient. Case discussed with critical care physician, Dr. Cesar, who agrees with placement into the intensive care unit. - Consultations Consultation #1: 08/14/17 09:56 Case discussed with nephrology, Dr. olivo, they will arrange for dialysis. 08/14/17 10:20 Consultation #2: 08/14/17 11:51 case d/w Cardiology, Dr Nation, who will see the patient in consultation ED Medical Decision Making - Lab Data Result diagrams: 08/14/17 08:45 08/14/17 14:20 Vital Signs 08/14/17 08/14/17 08/14/17 08:24 08:25 08:26 Temperature Pulse Rate 121 H 120 H 120 H Respiratory 16 15 23 Rate Blood Pressure 191/117 191/117 O2 Sat by Pulse 100 100 100 Oximetry 08/14/17 08/14/17 08/14/17 08:28 08:30 08:31 Temperature 99.0 F Pulse Rate 118 H 119 H 117 H Respiratory 29 H 28 H 19 Rate Blood Pressure 191/117 191/117 186/118 O2 Sat by Pulse 100 100 100 Oximetry 08/14/17 08/14/17 08/14/17 08:32 08:34 08:36 Temperature Pulse Rate 114 H 116 H 117 H Respiratory 23 25 H 35 H Rate Blood Pressure 186/118 186/118 186/118 O2 Sat by Pulse 100 100 100 Oximetry 08/14/17 08/14/17 08/14/17 08:38 08:40 08:42 Temperature Pulse Rate 116 H 117 H 115 H Respiratory 28 H 21 22 Rate Blood Pressure 186/118 186/118 186/118 O2 Sat by Pulse 100 100 100 Oximetry 08/14/17 08/14/17 08/14/17 08:44 08:46 08:48 Temperature Pulse Rate 117 H 117 H 122 H Respiratory 16 16 33 H Rate Blood Pressure 186/118 186/118 186/118 O2 Sat by Pulse 100 100 100 Oximetry 08/14/17 08/14/17 08/14/17 08:50 08:52 08:54 Temperature 99.5 F Pulse Rate 122 H 116 H 117 H Respiratory 30 H 17 29 H Rate Blood Pressure 180/121 180/121 180/121 O2 Sat by Pulse 100 100 100 Oximetry 08/14/17 08/14/17 08/14/17 08:56 08:58 09:00 Temperature Pulse Rate 116 H 118 H 112 H Respiratory 25 H 16 11 L Rate Blood Pressure 180/121 180/121 199/102 O2 Sat by Pulse 100 100 Oximetry 08/14/17 08/14/17 08/14/17 09:02 09:04 09:06 Temperature Pulse Rate 111 H 116 H 117 H Respiratory 12 15 12 Rate Blood Pressure 181/101 181/101 181/101 O2 Sat by Pulse 100 100 100 Oximetry 08/14/17 08/14/17 08/14/17 09:07 09:08 09:10 Temperature Pulse Rate 117 H 114 H 114 H Respiratory 22 20 17 Rate Blood Pressure O2 Sat by Pulse 100 100 100 Oximetry 08/14/17 08/14/17 08/14/17 09:12 09:14 09:15 Temperature Pulse Rate 113 H 114 H 114 H Respiratory 20 21 20 Rate Blood Pressure 194/97 O2 Sat by Pulse 100 100 99 Oximetry 08/14/17 08/14/17 08/14/17 09:16 09:18 09:20 Temperature Pulse Rate 114 H 118 H 117 H Respiratory 18 20 14 Rate Blood Pressure 194/97 181/101 181/101 O2 Sat by Pulse 100 100 100 Oximetry 08/14/17 08/14/17 08/14/17 09:22 09:23 09:24 Temperature Pulse Rate 126 H 123 H 125 H Respiratory 11 L 19 24 Rate Blood Pressure 234/128 234/128 234/128 O2 Sat by Pulse 98 98 99 Oximetry 08/14/17 08/14/17 08/14/17 09:25 09:26 09:28 Temperature Pulse Rate 117 H 130 H 124 H Respiratory 14 10 L Rate Blood Pressure 200/109 234/128 234/128 O2 Sat by Pulse 100 100 Oximetry 08/14/17 09:29 Temperature Pulse Rate 105 H Respiratory 18 Rate Blood Pressure 179/97 O2 Sat by Pulse 99 Oximetry Lab Results 08/14/17 08/14/17 08/14/17 Range/Units 08:45 08:45 08:45 WBC 15.4 H (4.5-11.0) K/mm3 RBC 4.19 (3.65-5.03) M/mm3 Hgb 11.7 L (11.8-15.2) gm/dl Hct 36.7 (35.5-45.6) % MCV 88 (84-94) fl MCH 28 (28-32) pg MCHC 32 (32-34) % RDW 15.9 H (13.2-15.2) % Plt Count 130 L (140-440) K/mm3 Lymph % (Auto) 5.7 L (13.4-35.0) % [place] % (Auto) 7.1 (0.0-7.3) % Eos % (Auto) 0.0 (0.0-4.3) % Baso % (Auto) 0.2 (0.0-1.8) % Lymph # 0.9 L (1.2-5.4) K/mm3 [place] # 1.1 H (0.0-0.8) K/mm3 Eos # 0.0 (0.0-0.4) K/mm3 Baso # 0.0 (0.0-0.1) K/mm3 Seg Neutrophils % 87.0 H (40.0-70.0) % Seg Neutrophils # 13.4 H (1.8-7.7) K/mm3 PT 15.5 H (12.2-14.9) Sec. INR 1.17 H (0.87-1.13) VBG pH (7.320-7.420) Sodium 136 L (137-145) mmol/L Potassium 3.6 (3.6-5.0) mmol/L Chloride 88.1 L (98-107) mmol/L Carbon Dioxide 15 L D (22-30) mmol/L Anion Gap 37 mmol/L BUN 51 H (9-20) mg/dL Creatinine 8.7 H (0.8-1.5) mg/dL Estimated GFR 8 ml/min BUN/Creatinine Ratio 6 % Glucose 806 H* (75-100) mg/dL Lactic Acid (0.7-2.0) mmol/L Calcium 9.0 (8.4-10.2) mg/dL Total Bilirubin 0.40 (0.1-1.2) mg/dL AST 15 (5-40) units/L ALT < 5 L (7-56) units/L Alkaline Phosphatase 94 (35-129) units/L Troponin T 0.462 H* (0.00-0.029) ng/mL Total Protein 8.1 (6.3-8.2) g/dL Albumin 4.2 (3.9-5) g/dL Albumin/Globulin Ratio 1.1 % 08/14/17 08/14/17 Range/Units 08:45 08:45 WBC (4.5-11.0) K/mm3 RBC (3.65-5.03) M/mm3 Hgb (11.8-15.2) gm/dl Hct (35.5-45.6) % MCV (84-94) fl MCH (28-32) pg MCHC (32-34) % RDW (13.2-15.2) % Plt Count (140-440) K/mm3 Lymph % (Auto) (13.4-35.0) % [place] % (Auto) (0.0-7.3) % Eos % (Auto) (0.0-4.3) % Baso % (Auto) (0.0-1.8) % Lymph # (1.2-5.4) K/mm3 [place] # (0.0-0.8) K/mm3 Eos # (0.0-0.4) K/mm3 Baso # (0.0-0.1) K/mm3 Seg Neutrophils % (40.0-70.0) % Seg Neutrophils # (1.8-7.7) K/mm3 PT (12.2-14.9) Sec. INR (0.87-1.13) VBG pH 7.519 H (7.320-7.420) Sodium (137-145) mmol/L Potassium (3.6-5.0) mmol/L Chloride (98-107) mmol/L Carbon Dioxide (22-30) mmol/L Anion Gap mmol/L BUN (9-20) mg/dL Creatinine (0.8-1.5) mg/dL Estimated GFR ml/min BUN/Creatinine Ratio % Glucose (75-100) mg/dL Lactic Acid 3.80 H* (0.7-2.0) mmol/L Calcium (8.4-10.2) mg/dL Total Bilirubin (0.1-1.2) mg/dL AST (5-40) units/L ALT (7-56) units/L Alkaline Phosphatase (35-129) units/L Troponin T (0.00-0.029) ng/mL Total Protein (6.3-8.2) g/dL Albumin (3.9-5) g/dL Albumin/Globulin Ratio % - EKG Data -: EKG Interpreted by Me - EKG Data 08/14/17 09:53 EKG #1 demonstrates sinus tachycardia, 113 bpm, motion artifact, nonspecific T- wave inversions, atrial enlargement, abnormal EKG, not morphologically consistent with STEMI. Nonspecific changes with compared to prior EKG. EKG #2 demonstrates sinus tachycardia, 102 bpm, normal axis, QTC 460 ms, persistent nonspecific T-wave abnormalities, not morphologically consistent with stemi EKG #3 unchanged from prior. Nonspecific T-wave abnormalities. 08/14/17 10:25 - Radiology Data Radiology results: image reviewed interpreted by me: X-ray the chest is negative for acute disease. Critical Care Time: Yes Critical care time in (mins) excluding proc time.: 45 Critical care attestation.: If time is entered above; I have spent that time in minutes in the direct care of this critically ill patient, excluding procedure time. ED Disposition Clinical Impression: Elevated troponin level, ESRD (end stage renal disease), DKA (diabetic ketoacidoses), Hypertensive emergency Disposition: OP ADMIT IP TO THIS HOSP Is pt being admited?: Yes Does the pt Need Aspirin: Yes Condition: Critical
[2017-08-14] MEDS ORDERED: ZOFRAN ONE (08:48)
[2017-08-14] MEDS ORDERED: DILAUDID ONE (08:56)
[2017-08-14] MEDS ORDERED: APRESOLINE ONE (08:56)
[2017-08-14 09:03] LABS: Basophils % (Auto) 0.2 % (0.0-1.8); Hematocrit 36.7 % (35.5-45.6); Hemoglobin 11.7 gm/dl (11.8-15.2); Mean Corpuscular HGB Conc 32 % (32-34); Mean Corpuscular Hemoglobin 28 pg (28-32); Mean Corpuscular Volume 88 fl (84-94); Platelet Count 130 K/mm3 (140-440); Red Blood Count 4.19 M/mm3 (3.65-5.03); Red Cell Distribution Width 15.9 % (13.2-15.2); White Blood Count 15.4 K/mm3 (4.5-11.0)
[2017-08-14] MEDS ORDERED: APRESOLINE IV ONE (09:03)
[2017-08-14] MEDS ORDERED: DILAUDID IV ONE (09:04)
[2017-08-14] MEDS ORDERED: BENADRYL IV ONE (09:09)
[2017-08-14] MEDS ORDERED: PEPCID IV ONE (09:09)
[2017-08-14] MEDS ORDERED: REGLAN IV ONE (09:11)
[2017-08-14 09:14] LABS: INR 1.17 (0.87-1.13)
[2017-08-14] MEDS ORDERED: NORMODYNE IV ONE (09:14)
[2017-08-14 09:18] LABS: Alanine Aminotransferase < 5 units/L (7-56); Albumin 4.2 g/dL (3.9-5); Albumin/Globulin Ratio 1.1 %; Alkaline Phosphatase 94 units/L (35-129); Anion Gap 37 mmol/L; BUN/Creatinine Ratio 6; Blood Urea Nitrogen 51 mg/dL (9-20); Carbon Dioxide 15 mmol/L (22-30); Chloride 88.1 mmol/L (98-107); Potassium 3.6 mmol/L (3.6-5.0); Sodium 136 mmol/L (137-145); Total Protein 8.1 g/dL (6.3-8.2)
[2017-08-14] MEDS ORDERED: NACL ONE (09:20)
--- NOTE | 2017-08-14 09:22 | XRay Report ---
AP CHEST: HISTORY: Lightheadedness, dizziness The right IJ dual-lumen venous catheter has been removed since 02/12/17. AP view of the chest demonstrates a normal mediastinal and cardiac contour with clear lungs and normal bony and soft tissue structures. IMPRESSION: Unremarkable AP chest.
[2017-08-14] MEDS ORDERED: BREVIBLOC DRIP 2.5GM/250ML 2.5 GM/250 ML BAG IV ONE (09:30)
[2017-08-14] MEDS ORDERED: D50W (25GM) Syringe IV PRN (09:38)
[2017-08-14 09:39] LABS: Glucose 806 mg/dL (75-100)
[2017-08-14 09:59] LABS: Cholesterol 180 mg/dL (50-199); HDL Cholesterol 49 mg/dL (40-59); LDL Cholesterol,Direct 83 mg/dL (50-130); Triglycerides 243 mg/dL (2-149)
[2017-08-14] MEDS ORDERED: TRIDIL DRIP 50MG/250ML 50 MG/250 ML BOTTLE IV ONE (10:00)
--- NOTE | 2017-08-14 10:00 | Cat Scan Report ---
CT HEAD WITHOUT CONTRAST: HISTORY: Headache. Serial contiguous axial images were obtained through the cranium. Intravenous contrast material was not administered. The ventricles are normal in size and appearance. There is no mass effect or midline shift. No areas of abnormally increased or decreased attenuation are seen. No mass lesion is seen. The mastoid air cells and visualized portions of the sinuses are normal. IMPRESSION: Cranial CT scan within normal limits.
[2017-08-14 10:10] LABS: Magnesium 2.1 mg/dL (1.7-2.3); Phosphorous 3.8 mg/dL (2.5-4.5)
--- NOTE | 2017-08-14 10:11 | Cat Scan Report ---
CTA CHEST CTA ABDOMEN History: Pain, evaluate for aortic dissection. Technique: Helical CT following IV contrast. Sagittal and coronal reformatted images. Rotational MIP images. Findings: Contrast bolus is satisfactory. The heart is normal size. No pericardial effusion. The lungs are clear. The thoracic and abdominal aorta are normal caliber throughout. There is no evidence for atherosclerotic disease, aneurysm, stenosis or dissection. The origins of the innominate artery, left common carotid artery, left subclavian artery, celiac axis, SMA, [place]ERVA and bilateral single renal arteries are widely patent with less than 20% stenosis. There is a slightly irregular perfusion defect in the posterior spleen measuring up to 2.5 x 2.7 cm in axial plane. The etiology of this is unclear. This could represent a splenic infarct or splenic injury. Please correlate with the patient's clinical history and presentation. There is no active hemorrhage at this time. The liver, biliary system, pancreas, kidneys, adrenal glands, bowel loops and appendix are unremarkable. No bony fracture. Impression: Normal CTA of the chest and abdomen. Perfusion defect in the posterior spleen as outlined above. Please correlate with the patient's clinical presentation.
[2017-08-14 10:13] LABS: Calcium 8.1 mg/dL (8.4-10.2); Chloride 90.5 mmol/L (98-107)
[2017-08-14] MEDS ORDERED: BABY ASPIRIN PO ONE (10:25)
[2017-08-14] MEDS ORDERED: CARDIZEM/D5W 100MG/100ML 0 MG/0 ML BAG IV ONE (10:26)
[2017-08-14 10:32] LABS: Potassium 4.9 mmol/L (3.6-5.0)
[2017-08-14] MEDS ORDERED: NACL 0.9% 1000 ML 1,000 ML ONE (10:59)
--- NOTE | 2017-08-14 10:59 | Consultation ---
History of Present Illness - Reason for Consult Consult date: 08/14/17 end stage renal disease Requesting physician: SOPHIA CLINE - History of Present Illness Mr. Ventura is a 36-year-old -[place] male with past medical history significant for diabetes, hypertension and end-stage renal disease and continued his hemodialysis presented to the emergency room with the complaints of nausea and vomiting for 3 days. He also had some associated chest pain and diaphoresis. His blood sugar noted to be over 800 with a bicarbonate level of 15. He is being admitted with the diagnosis of DKA. He also had a CT angiogram done to rule out aortic dissection which was found to be negative as well. He started hemodialysis since November. And still does make urine. Patient also complains of mild shortness of breath. His blood pressure was also noted to be evaluated in the ER. He is currently on an esmolol drip. He undergoes hemodialysis under our care on Mondays, Wednesdays and Fridays at [facility]. He did have his last dialysis treatment on Tuesday Past History Past Medical History: diabetes, dialysis, hypertension Past Surgical History: Other (history of creation of AV graft) Social history: other (denies smoking or drinking) Medications and Allergies Allergies Allergy/AdvReac Type Severity Reaction Status Date / Time iodine Allergy Severe Vomiting Verified 08/14/17 08:28 IV dye Allergy Severe Vomiting Uncoded 08/14/17 08:28 Home Medications Medication Instructions Recorded Confirmed Last Taken Type Insulin Regular, Human [HumuLIN R] 6 unit SQ AC 02/24/16 08/10/17 08/10/17 06: 00 History Vit B Comp C/Folic Acid/Vit D3 1 each PO QDAY 01/10/17 08/10/17 08/09/17 History [Dialyvite 800 Plus D Wafer] Insulin Glargine [Lantus VIAL] 40 units SQ QHS #1 vial 02/04/17 08/10/17 Rx cloNIDine [Catapres] 0.3 mg PO PRN PRN 07/07/17 08/10/17 08/10/17 05:00 History Active Meds: Active Medications Dextrose (D50w (25gm) Syringe) 0 ml IV PRN PRN PRN Reason: Hypoglycemia Potassium Chloride/Dextrose/Sod Cl (D5w/0.45% Nacl/Kcl 20 Meq) 20 meq in 1,000 mls @ 125 mls/hr IV DIRECT SANDRINE Insulin Human Regular 100 (units/ Sodium Chloride) 100 mls @ 1 mls/hr IV TITR SANDRINE; 1 UNITS/HR PRN Reason: Protocol Nicardipine HCl 50 mg/ Sodium (Chloride) 250 mls @ 25 mls/hr IV TITR SANDRINE; 5 MG/ HR PRN Reason: Protocol Review of Systems All systems: negative (negative except as noted above) Exam - Vital Signs Vital signs: Vital Signs Pulse Resp Pulse Ox 121 H 16 100 08/14/17 08:24 08/14/17 08:24 08/14/17 08:24 - General Appearance General appearance: well-developed, well-nourished, appears stated age EENT: PERRL, mucous membranes moist Neck: Present: neck supple, trachea midline. Absent: JVD/HJR, Masses Respiratory: Clear to Ascultation Heart: regular, normal heart rate, S1S2, no murmurs Gastrointestinal: Present: normal, normoactive bowel sounds, tenderness (mild epigastric tenderness) Integumentary: no rash, rash, other (no edema. AV graft in his right upper arm. Good bruit and thrill) Results - Lab Results 08/14/17 08:45 08/14/17 09:52 Most recent lab results Calcium 8.1 mg/dL (8.4-10.2) L 08/14/17 09:52 Phosphorus 3.80 mg/dL (2.5-4.5) 08/14/17 09:52 Magnesium 2.10 mg/dL (1.7-2.3) 08/14/17 09:52 Assessment and Plan Impression * Diabetic ketoacidosis * Accelerated hypertension * End-stage renal disease. On maintenance hemodialysis * Anemia secondary to ESRD * Lactic acidosis. Rule out underlying sepsis Recommendations * Patient just had a contrast study done to rule out aortic dissection. He does have visited her renal function. She'll arrange for hemodialysis today * His metabolic acidosis should also improve with dialysis * Agree with insulin drip * Would recommend avoiding excess hydration * Avoid nephrotoxins * Monitor patient's fluid status and electrolytes closely * Thank you very much for the consultation. Shall follow along with you
[2017-08-14] MEDS ORDERED: CARDENE 50 MG in NACL 0.9% 250ML 230 ML IV SCH (11:00)
[2017-08-14] MEDS ORDERED: NACL 0.9% 100 ML IV PRN (11:00)
[2017-08-14] MEDS: NovoLIN R 100 UNITS in NACL 0.9% 99 ML IV SCH ×2 (11:04→22:00)
[2017-08-14 11:59] LABS: Calcium 7.3 mg/dL (8.4-10.2); Chloride 103.2 mmol/L (98-107)
[2017-08-14] MEDS ORDERED: NACL 0.9% 1000 ML 1,000 ML IV ONE (12:13)
[2017-08-14 12:19] LABS: Potassium 5.4 mmol/L (3.6-5.0)
[2017-08-14] MEDS ORDERED: ZOFRAN IV ONE (12:33)
--- NOTE | 2017-08-14 13:33 | Consultation ---
History of Present Illness Consult date: 08/14/17 Requesting physician: SOPHIA CLINE Reason for consult: other (Hypertensive Emergency) History of present illness: PULMONARY / CCM CONSULT NOTE (full dictation # [id number]) Please see dictated notes for full details Past History Past Medical History: diabetes, dialysis, hypertension Past Surgical History: Other (history of creation of AV graft) Social history: other (denies smoking or drinking) Medications and Allergies Allergies Allergy/AdvReac Type Severity Reaction Status Date / Time iodine Allergy Severe Vomiting Verified 08/14/17 08:28 IV dye Allergy Severe Vomiting Uncoded 08/14/17 08:28 Home Medications Medication Instructions Recorded Confirmed Last Taken Type Insulin Regular, Human [HumuLIN R] 6 unit SQ AC 02/24/16 08/14/17 08/10/17 06: 00 History Vit B Comp C/Folic Acid/Vit D3 1 each PO QDAY 01/10/17 08/14/17 08/09/17 History [Dialyvite 800 Plus D Wafer] Insulin Glargine [Lantus VIAL] 40 units SQ QHS #1 vial 02/04/17 08/14/17 Rx cloNIDine [Catapres] 0.3 mg PO PRN PRN 07/07/17 08/14/17 08/10/17 05:00 History Active Meds: Active Medications Dextrose (D50w (25gm) Syringe) 0 ml IV PRN PRN PRN Reason: Hypoglycemia Potassium Chloride/Dextrose/Sod Cl (D5w/0.45% Nacl/Kcl 20 Meq) 20 meq in 1,000 mls @ 125 mls/hr IV DIRECT SANDRINE Insulin Human Regular 100 (units/ Sodium Chloride) 100 mls @ 1 mls/hr IV TITR SANDRINE; 1 UNITS/HR PRN Reason: Protocol Last Titration: 08/14/17 12:16 Dose: 7 units/hr, 7 mls/hr Nicardipine HCl 50 mg/ Sodium (Chloride) 250 mls @ 25 mls/hr IV TITR SANDRINE; 5 MG/ HR PRN Reason: Protocol Last Titration: 08/14/17 13:03 Dose: 2.5 mg/hr, 12.5 mls/hr Sodium Chloride (Nacl 0.9%) 100 mls @ 999 mls/hr IV MARI PRN PRN Reason: Hypotension Sodium Chloride (Nacl 0.9% 1000 Ml) 1,000 mls @ 50 mls/hr IV ONCE ONE Stop: 08/15/17 08:12 Last Admin: 08/14/17 11:30 Dose: 50 mls/hr Physical Examination Vital signs: Vital Signs Pulse Resp Pulse Ox 121 H 16 100 08/14/17 08:24 08/14/17 08:24 08/14/17 08:24 Results - Laboratory Findings CBC and BMP: 08/14/17 08:45 08/14/17 11:32 PT/INR, D-dimer PT 15.5 Sec. (12.2-14.9) H 08/14/17 08:45 INR 1.17 (0.87-1.13) H 08/14/17 08:45 Abnormal lab findings: Abnormal Labs 08/14/17 08/14/17 08/14/17 11:06 11:32 12:19 Potassium 5.4 H Carbon Dioxide 18 L BUN 46 H Creatinine 6.7 H Glucose 503 H* POC Glucose > 500 H 391 H Calcium 7.3 L 08/14/17 13:29 Potassium Carbon Dioxide BUN Creatinine Glucose POC Glucose 358 H Calcium
[2017-08-14 14:54] LABS: Calcium 9.2 mg/dL (8.4-10.2); Potassium 3.5 mmol/L (3.6-5.0)
--- NOTE | 2017-08-14 15:13 | Consultation ---
History of Present Illness Consult date: 08/14/17 Consult reason: elevated troponin History of present illness: This patient is a 36-year-old man with multiple medical problems. He has end- stage renal disease on hemodialysis, chronic severe hypertension, diabetes and severe gastroparesis. On multiple previous admissions, he has been found with a chronic nonspecific elevation in his troponin levels. As a consequence, he has had extensive previous ischemic cardiac workup including a cardiac catheterization at [facility] in April 2015, no significant coronary disease was found. More recently, an echocardiogram last month at this hospital demonstrated well preserved left ventricle systolic function with ejection fraction of 55%. The patient presents to the emergency room at this time with complaints of nausea, vomiting and inability to keep oral intake down. On presentation to the emergency room, he was also found with uncontrolled diabetes, and diabetic ketoacidosis. In addition, there was uncontrolled hypertension, prompting the use of intravenous Cardene. Cardiovascular consultation was requested because cardiac enzymes were measured, and again reported an isolated elevation of the troponin, with levels identical to his previous admissions. He has no chest pain or shortness of breath or palpitations or lower extremity edema. EKG is sinus rhythm, left ventricle hypertrophy and nonspecific ST and T-wave abnormalities. Past History Past Medical History: diabetes, dialysis, hypertension Past Surgical History: Other (history of creation of AV graft) Social history: other (denies smoking or drinking) Medications and Allergies Allergies Allergy/AdvReac Type Severity Reaction Status Date / Time iodine Allergy Severe Vomiting Verified 08/14/17 08:28 IV dye Allergy Severe Vomiting Uncoded 08/14/17 08:28 Home Medications Medication Instructions Recorded Confirmed Last Taken Type Insulin Regular, Human [HumuLIN R] 6 unit SQ AC 02/24/16 08/14/17 08/10/17 06: 00 History Vit B Comp C/Folic Acid/Vit D3 1 each PO QDAY 01/10/17 08/14/17 08/09/17 History [Dialyvite 800 Plus D Wafer] Insulin Glargine [Lantus VIAL] 40 units SQ QHS #1 vial 02/04/17 08/14/17 Rx cloNIDine [Catapres] 0.3 mg PO PRN PRN 07/07/17 08/14/17 08/10/17 05:00 History Active Meds: Active Medications Dextrose (D50w (25gm) Syringe) 0 ml IV PRN PRN PRN Reason: Hypoglycemia Famotidine (Pepcid) 20 mg IV QDAY SANDRINE Potassium Chloride/Dextrose/Sod Cl (D5w/0.45% Nacl/Kcl 20 Meq) 20 meq in 1,000 mls @ 125 mls/hr IV DIRECT SANDRINE Insulin Human Regular 100 (units/ Sodium Chloride) 100 mls @ 1 mls/hr IV TITR SANDRINE; 1 UNITS/HR PRN Reason: Protocol Last Titration: 08/14/17 12:16 Dose: 7 units/hr, 7 mls/hr Nicardipine HCl 50 mg/ Sodium (Chloride) 250 mls @ 25 mls/hr IV TITR SANDRINE; 5 MG/ HR PRN Reason: Protocol Last Titration: 08/14/17 13:53 Dose: 5 mg/hr, 25 mls/hr Sodium Chloride (Nacl 0.9%) 100 mls @ 999 mls/hr IV MARI PRN PRN Reason: Hypotension Sodium Chloride (Nacl 0.9% 1000 Ml) 1,000 mls @ 50 mls/hr IV ONCE ONE Stop: 08/15/17 08:12 Last Admin: 08/14/17 11:30 Dose: 50 mls/hr Levofloxacin/Dextrose (Levaquin 500mg/100ml) 500 mg in 100 mls @ 100 mls/hr IV Q48H SANDRINE PRN Reason: Protocol Review of Systems Cardiovascular: no chest pain, no orthopnea, no palpitations, no rapid/ irregular heart beat, no edema, no syncope, no lightheadedness, no shortness of breath Gastrointestinal: nausea, vomiting Physical Examination Vital Signs Pulse Resp Pulse Ox 121 H 16 100 08/14/17 08:24 08/14/17 08:24 08/14/17 08:24 General appearance: no acute distress HEENT: Positive: PERRL Neck: Positive: neck supple Cardiac: Positive: Reg Rate and Rhythm Lungs: Positive: Decreased Breath Sounds Neuro: Positive: Grossly Intact Abdomen: Positive: Soft Male genitourinary: Positive: deferred Skin: Positive: Clear Extremities: Absent: edema Results 08/14/17 08:45 08/14/17 14:20 Comprehensive Metabolic Panel 08/14/17 08/14/17 Range/Units 11:32 14:20 Sodium 141 145 (137-145) mmol/L Potassium 5.4 H 3.5 L D (3.6-5.0) mmol/L Chloride 103.2 100.0 (98-107) mmol/L Carbon Dioxide 18 L 23 (22-30) mmol/L BUN 46 H 53 H (9-20) mg/dL Creatinine 6.7 H 8.1 H (0.8-1.5) mg/dL Glucose 503 H* 390 H (75-100) mg/dL Calcium 7.3 L 9.2 D (8.4-10.2) mg/dL EKG interpretations - Telemetry EKG Rhythm: Sinus Rhythm Assessment and Plan - Patient Problems (1) Uncontrolled hypertension Current Visit: Yes Status: Acute Plan to address problem: We will optimize antihypertensive therapy while he undergoes GI evaluation and management of his primary complaint of symptomatic gastroparesis. (2) Elevated troponin Current Visit: Yes Status: Acute Plan to address problem: The patient has a history of chronic nonspecific elevation and troponin levels, likely associated with his end-stage renal disease. No further cardiac ischemic workup is indicated, patient is asymptomatic from the cardiac standpoint.
[2017-08-14] MEDS: LEVAQUIN 500MG/100ML 500 MG/100 ML BAG IV SCH (16:14)
[2017-08-14 17:05] LABS: Calcium 7.9 mg/dL (8.4-10.2); Chloride 90.5 mmol/L (98-107)
[2017-08-14 17:17] LABS: Potassium 2.9 mmol/L (3.6-5.0)
[2017-08-14] MEDS: D5W/0.45% NACL/KCL 20 MEQ 20 MEQ/1,000 ML BAG IV SCH (18:54)
[2017-08-14] MEDS: DILAUDID IV PRN (19:04)
[2017-08-14] MEDS: ZOFRAN IV PRN (19:06)
[2017-08-14 19:41] LABS: Calcium 10.7 mg/dL (8.4-10.2); Chloride 102.8 mmol/L (98-107); Potassium 3.5 mmol/L (3.6-5.0)
[2017-08-14 22:07] LABS: Calcium 10.2 mg/dL (8.4-10.2); Chloride 101.7 mmol/L (98-107); Potassium 4.8 mmol/L (3.6-5.0)
--- NOTE | 2017-08-14 22:52 | Event Note ---
Date: 08/14/17 See H/p in reports Hypertensive emergency Non ketotic Hyperosmolar state in diabetes Hyperkalemia
[2017-08-14] MEDS ORDERED: PERCOCET 5/325 PO PRN (22:54)
[2017-08-14] MEDS ORDERED: MILK OF MAGNESIA PO PRN (22:54)
[2017-08-14] MEDS ORDERED: DULCOLAX PR PRN (22:54)
[2017-08-14] MEDS ORDERED: TYLENOL PO PRN (22:54)
[2017-08-14] MEDS ORDERED: ZOFRAN IV PRN (22:54)
[2017-08-15] MEDS: DILAUDID IV PRN ×4 (00:35→20:34)
--- NOTE | 2017-08-15 01:22 | Consultation ---
PULMONARY CRITICAL CARE CONSULT NOTE CONSULTING PHYSICIAN: Rohan Vasquez MD, Emergency Room physician. REASON FOR CONSULTATION: Hypertensive emergency. HISTORY OF PRESENT ILLNESS: As follows: The patient is a 36-year-old -[place] male indeed past medical history significant for a diagnosis of end-stage renal disease, on dialysis, but also hypertension, came into the Emergency Room complaining of acute chest pain. His symptoms began on the day of presentation. He denied any palpitations. He denied any radiation of the chest pain. He did have nausea and vomiting as well as diaphoresis. He is also diabetic. He stated that his sugars have been running high for a while. He denied any exacerbating or relieving factors. In particular, denied dyspnea on exertion. He was evaluated in the Emergency Room and found to be significantly hypertensive, hence the consult. The patient also denies any new focal weaknesses. He denies any seizure-type activity. When I stopped by to see him, he was resting in bed, looks in distress and mildly labored breathing. He admitted to a cough. He denied any expectoration. He denied any hemoptysis. He denies missing any of his dialysis sessions and states he has been taking his medications. That is as much of the history of presentation as I have. PAST MEDICAL HISTORY: Again, hypertension, cerebrovascular attack in the past, TIAs, also a history of coronary artery disease according to him, history of diabetes, history of end-stage renal disease on dialysis Tuesday, Tuesday and Tuesday, history of gastroparesis. PAST SURGICAL HISTORY: He has had left eye surgery, amputation of the right toe. He has a Vascath in the right chest and he has had a graft to the right upper extremity. He has had a Vascath to the right chest. MEDICATIONS: He was on at the time I stopped by to see him have been reviewed. Pertinent positives and/or negatives are as follows: He was on insulin drip going around 3 units an hour, nicardipine 5 mg per hour and he was on D5 half NS with 20 mEq of potassium at 125 mL per hour. ALLERGIES: Iodine. Nature of that allergy is unknown. DIET: Well-built gentleman. Denies acute weight loss or gain in the preceding few weeks to months. FAMILY AND SOCIAL HISTORY: Lives in the community. Denies alcohol, tobacco, or illicit drug use or abuse. There is a family history of hypertension. REVIEW OF SYSTEMS: Complete 13-system review of systems obtained. Pertinent positives and/or negatives as in the body of the history above. Otherwise, he denies gross hematochezia or melena. Denies gross hematuria or dysuria. He did feel like he was ill prior to coming in to the hospital and felt like he had an upper respiratory tract infection. He has denied any new focal deficits. PHYSICAL EXAMINATION: VITAL SIGNS: At presentation, he had a low grade fever 99.0 Fahrenheit with a pulse of 120, respiratory rate of 30 at a point and blood pressure 191/117. HEAD, EYES, EARS, NOSE AND THROAT: Pupils are equal, round, about 3 mm, reactive to light and accommodation. Extraocular muscle movements are intact. Grossly, there were no palpable lymph nodes in the supraclavicular or submandibular lymph node chains. Oropharynx is a Mallampati #2 oropharynx. Oropharyngeal mucosa was moist. There was no gross jugular venous distention, no thyromegaly. LUNGS: Auscultation of both lung null, lungs are clear bilaterally with good bilateral air movement, mildly increased respiratory effort. HEART: Heart sounds 1 and 2 are heard. They were regular in rate and rhythm. No rubs, no murmurs. ABDOMEN: Soft, protuberant, but not distended. Bowel sounds positive. He is mildly tender diffusely. No hepatosplenomegaly. EXTREMITIES: Without overt digital clubbing, cyanosis, no pedal edema. SKIN: Normal turgor, no tenting, no new rashes, no petechiae. NEUROLOGIC: He appears distressed, but has good insight and judgment. He is alert and oriented x 3. RECTAL: Examination was deferred. MUSCULOSKELETAL: Palpation of the back is without any spinal point tenderness and no CVA tenderness. No paraspinal tenderness also. LABORATORY DATA: From my review are as follows: White cell count 15,400, hemoglobin 11.7, hematocrit 36.7, platelet count 130. INR 1.17. Venous blood gas showed a pH of 7.52. Serum sodium was 141, potassium 5.4, chloride 103, bicarbonate 18, BUN 46, creatinine 6.7 and glucose of 503. Lactic acid level was 3.80. Phosphorus and mag were within normal limits. I have reviewed the chest x-ray. It is really a normal chest x-ray. No gross cardiomegaly, no focal infiltrates, no pneumothorax. A CT angio was done appropriately to evaluate for venous thromboembolic disease. I have reviewed the CT. I do not see any gross filling defects that are consistent with significant pulmonary emboli. Lung windows also do not show any focal infiltrate or consolidation. There is motion artifact and that interferes with interpretation of the film. CTA was also done of the abdomen, apart from perfusion defect in the posterior spleen, it is non-acute imaging. A CT scan was also done of his head. I have reviewed the report, it is CT scan within normal limits. ASSESSMENT AND PLAN: 1. Hypertensive emergency with secondary organ dysfunction. 2. Chest pain. 3. Headaches, most likely secondary to the hypertensive emergency. 4. Nausea and vomiting with abdominal cramping. 5. Uncontrolled diabetes. 6. Uncontrolled hypertension. 7. End-stage renal disease, on dialysis. ASSESSMENT AND PLAN: We will continue the Cardene drip to help keep his blood pressure down in the setting of secondary organ dysfunction signs and symptoms, this is appropriate. We will also go ahead and schedule hydralazine in the short term with instructions to hold for systolic blood pressures less than 150 and see if we can get him off the Cardene drip soon. We will provide supplemental oxygen in the short time to keep sats greater than or equal to about 94% and to tentatively reduce the cardiac work. His computer specialist has been consulted and dialysis will be ordered, especially in the light of the hyperkalemia and overall clinical presentation. Insulin drip will continue and he will be transitioned to long-acting insulin formulation soon, especially in light of the leukocytosis and the lactic acidosis. We will draw cultures and empirically cover him with antibiotic therapy. We will trend the lactic acid levels. A CRP level will be ordered to better understand the true infectious potential of this leukocytosis. He will be placed on GI prophylaxis and DVT prophylaxis. Flu and pneumonia vaccination will be per protocol. Thank you very much for the consult. We will follow along and make further recommendations as picture progresses/becomes clearer. At this point, I have spent about 30-35 minutes of critical care time. He is critically ill, on life-sustaining interventions including the IV Cardene drip and at risk for further deterioration including . JOB# [id number] LUIGI/ROCK
[2017-08-15] MEDS: D5W/0.45% NACL/KCL 20 MEQ 20 MEQ/1,000 ML BAG IV SCH (03:07)
[2017-08-15 06:09] LABS: Hematocrit 39.6 % (35.5-45.6); Hemoglobin 12.5 gm/dl (11.8-15.2); Mean Corpuscular HGB Conc 32 % (32-34); Mean Corpuscular Hemoglobin 28 pg (28-32); Mean Corpuscular Volume 88 fl (84-94); Platelet Count 140 K/mm3 (140-440); Red Cell Distribution Width 16.1 % (13.2-15.2)
[2017-08-15 06:14] LABS: White Blood Count 23.6 K/mm3 (4.5-11.0)
[2017-08-15] MEDS ORDERED: CATAPRES PO ONE (06:25)
[2017-08-15 06:31] LABS: Chloride 101.8 mmol/L (98-107); Potassium 3.7 mmol/L (3.6-5.0)
[2017-08-15 06:48] LABS: Blastocytes % (Manual) 0 %; Diff Status Complete; Eosinophils % (Manual) 0 % (0.0-4.3); Platelet Estimate Consistent w Auto; RBC Morphology Normal
[2017-08-15] MEDS: ZOFRAN IV PRN (07:28)
[2017-08-15] MEDS: NOVOLOG SUB-Q SCH ×4 (07:30→22:34)
--- NOTE | 2017-08-15 08:18 | History and Physical Report ---
CHIEF COMPLAINT: 1. Chest pain. 2. High sugars. HISTORY OF PRESENT ILLNESS: A 36-year-old male with end-stage renal disease, on dialysis Tuesday, Tuesday and Tuesday, comes in for chest pain, headache, abdominal cramping, nausea, vomiting and diaphoresis. The symptoms started in the morning. No exacerbating or relieving factors. The patient has been taking his medications. The patient was in mild distress, was diaphoretic and tachycardic. His blood pressure was in the 200s. The patient was started on esmolol and nitroglycerin drip. CT angiogram was done to rule out aortic dissection. The patient continued to high blood pressure because of which the patient is on Cardene drip, hence admission to ICU. PAST MEDICAL HISTORY: Significant for end-stage renal disease, insulin-dependent diabetes, hypertension. CURRENT MEDICATIONS: Humulin regular 6 units before each meal, B complex clonidine 0.3 t.i.d. and Lantus 40 units subQ at bedtime. PAST SURGICAL HISTORY: Significant for left eye surgery, right toe amputation, right chest Vas-Cath and graft in the right upper arm. SOCIAL HISTORY: Does not smoke. No alcohol, no recreational drugs. FAMILY HISTORY: Significant for hypertension. REVIEW OF SYSTEMS: Significant for: HEENT: No sore throat, no postnasal drip. CARDIOVASCULAR AND RESPIRATORY: Chest pain and shortness of breath present. GASTROINTESTINAL: Nausea, vomiting present. GENITOURINARY: No dysuria, no flank pain. MUSCULOSKELETAL: No joint pains. CENTRAL NERVOUS SYSTEM: Headache present. SKIN: No rashes. A 14-point review of systems done. Otherwise, negative. PHYSICAL EXAMINATION: GENERAL: A young male, cooperative during examination. VITAL SIGNS: His initial blood pressure was 200/130, later came down to around 150/100 with the Cardene drip. Heart rate is 112, respiratory rate is 16, temperature is 98. HEENT: Unremarkable. Pupils equal and reactive. Posterior pharynx is normal. NECK: Supple, no lymphadenopathy, no thyromegaly. LUNGS: Clear to auscultation and percussion. Good air entry. CARDIOVASCULAR: S1, S2 heard. No gallop, no murmur, no rub. Apical impulse in left fifth intercostal space and midclavicular line. ABDOMEN: Soft and benign. No hepatosplenomegaly. No guarding, no rigidity. Hernial orifices are normal. EXTREMITIES: Good pedal pulses. No pedal edema. CENTRAL NERVOUS SYSTEM: Alert and oriented x 4. NEUROLOGIC: Nonfocal exam. SKIN: Normal. LABORATORY DATA: Significant for white count of 23,600. The initial white count was 15,400. Glucose was 503 and lactic acid was 3.8. Potassium was 5.4, BUN and creatinine 46 and 6.7, pH was 7.5. Troponin was 0.462. EKG showed left ventricular hypertrophy. CT of the head was negative. ASSESSMENT AND PLAN: 1. Malignant hypertension/hypertensive emergency. The patient was initiated on nitroglycerin drip and esmolol drip. Changed to Cardene drip, continue Cardene drip. 2. Hyperosmolar nonketotic state in diabetes. The patient initiated on regular Accu-Cheks and high dose sliding scale. The patient's blood glucose levels have come down from 503-390 and 187 over the course of the last 6 weeks. We will do insulin coverage. 3. High lactic acidosis, possible sepsis. IV antibiotics initiated. 4. High troponins. Cardiology was consulted. 5. End-stage renal disease, on dialysis. Continue dialysis. Nephrology consulted. 6. Noncompliance. The patient to be counseled. 7. Deep venous thrombosis prophylaxis, heparin 5000 q. 12. CRITICAL CARE STATEMENT: The high probability of a clinically significant sudden or life-threatening deterioration of the cardiovascular systems and endocrine systems require my full and direct attention, intervention and personal management. The aggregate critical care time was 40 minutes. The time is in addition to time spent performing reported procedures, but includes the followin. Data review and interpretation. 2. Patient assessment and monitoring of vital signs. 3. Documentation. 4. Medication orders and management. JOB# [id number] SARA/ROCK RAMÍREZ
--- NOTE | 2017-08-15 09:08 | Progress Note ---
Assessment and Plan Impression * Diabetic ketoacidosis * Accelerated hypertension * End-stage renal disease. On maintenance hemodialysis * Anemia secondary to ESRD * Lactic acidosis. Rule out underlying sepsis Recommendations * His acidosis seems to have resolved. Continue treatment for DKA per protocol. * His serum potassium is now 3.7 . Continue potassium and IV fluid for now. Recommend monitoring it closely and discontinue the case supplement when his potassium level goes up over 4 * Management of DKA as per ICU team * Would recommend avoiding excess hydration * Avoid nephrotoxins * Shall plan for next dialysis either on Tuesday or Tuesday * His outpatient days are Mondays, Wednesdays and Fridays Subjective Date of service: 08/15/17 Interval history: Patient remains in the ICU. He is comfortable. Does still have some nausea but improving. He is currently on a Cardene drip as well as an insulin drip. IV fluid also infusing. Had uneventful hemodialysis last night Objective - Vital Signs Vital signs: Vital Signs - 12hr 08/14/17 08/14/17 08/14/17 21:10 21:20 21:30 Temperature Pulse Rate 116 H 115 H 113 H Respiratory 20 14 14 Rate Blood Pressure 138/87 138/87 133/103 O2 Sat by Pulse 93 93 95 Oximetry 08/14/17 08/14/17 08/14/17 21:40 21:50 22:00 Temperature Pulse Rate 111 H 115 H 117 H Respiratory 12 13 16 Rate Blood Pressure 116/76 116/76 128/89 O2 Sat by Pulse 94 95 91 Oximetry 08/14/17 08/14/17 08/14/17 22:10 22:20 22:30 Temperature Pulse Rate 113 H 114 H 116 H Respiratory 17 17 15 Rate Blood Pressure 128/89 150/106 150/106 O2 Sat by Pulse 89 95 95 Oximetry 08/14/17 08/14/17 08/14/17 22:40 22:50 23:00 Temperature Pulse Rate 118 H 123 H 114 H Respiratory 11 L 19 11 L Rate Blood Pressure 139/92 139/92 141/91 O2 Sat by Pulse 95 99 Oximetry 08/14/17 08/14/17 08/14/17 23:10 23:20 23:30 Temperature Pulse Rate 125 H 111 H 108 H Respiratory 11 L 13 13 Rate Blood Pressure 141/91 143/86 143/86 O2 Sat by Pulse 98 91 90 Oximetry 1008/14/17 08/14/17 23:40 23:48 23:50 Temperature Pulse Rate 108 H 108 H 115 H Respiratory 13 13 11 L Rate Blood Pressure 136/85 141/91 136/85 O2 Sat by Pulse 89 90 Oximetry 08/14/17 08/15/17 08/15/17 23:52 00:00 00:10 Temperature 98.5 F Pulse Rate 119 H 118 H 111 H Respiratory 12 15 12 Rate Blood Pressure 136/85 151/89 136/85 O2 Sat by Pulse 97 95 89 Oximetry 08/15/17 08/15/17 08/15/17 00:20 00:30 00:40 Temperature Pulse Rate 113 H 108 H 105 H Respiratory 15 13 10 L Rate Blood Pressure 154/101 154/101 136/87 O2 Sat by Pulse 88 85 84 Oximetry 08/15/17 08/15/17 08/15/17 00:50 01:00 01:10 Temperature Pulse Rate 103 H 104 H 103 H Respiratory 16 10 L 11 L Rate Blood Pressure 136/87 129/82 136/87 O2 Sat by Pulse 94 86 91 Oximetry 08/15/17 08/15/17 08/15/17 01:20 01:30 01:40 Temperature Pulse Rate 104 H 100 H 105 H Respiratory 10 L 11 L 11 L Rate Blood Pressure 129/71 129/71 133/81 O2 Sat by Pulse 89 90 88 Oximetry 08/15/17 08/15/17 08/15/17 01:50 02:00 02:10 Temperature Pulse Rate 100 H 102 H 107 H Respiratory 10 L 10 L 11 L Rate Blood Pressure 133/81 133/81 133/81 O2 Sat by Pulse 90 91 94 Oximetry 08/15/17 08/15/17 08/15/17 02:20 02:30 02:40 Temperature Pulse Rate 110 H 113 H 115 H Respiratory 13 10 L 11 L Rate Blood Pressure 163/104 163/104 109/73 O2 Sat by Pulse 91 100 100 Oximetry 08/15/17 08/15/17 08/15/17 02:50 03:00 03:10 Temperature Pulse Rate 113 H 114 H 117 H Respiratory 11 L 13 14 Rate Blood Pressure 109/73 163/91 171/108 O2 Sat by Pulse 100 99 99 Oximetry 08/15/17 08/15/17 08/15/17 03:20 03:30 03:40 Temperature Pulse Rate 108 H 108 H 107 H Respiratory 15 11 L 15 Rate Blood Pressure 171/108 138/99 138/99 O2 Sat by Pulse 100 99 100 Oximetry 08/15/17 08/15/17 08/15/17 03:50 04:00 04:10 Temperature 98.8 F Pulse Rate 106 H 112 H 115 H Respiratory 11 L 13 19 Rate Blood Pressure 138/99 174/108 169/102 O2 Sat by Pulse 100 100 100 Oximetry 08/15/17 08/15/17 08/15/17 04:20 04:30 04:40 Temperature Pulse Rate 122 H 108 H 111 H Respiratory 20 14 11 L Rate Blood Pressure 169/102 189/122 189/122 O2 Sat by Pulse 100 99 99 Oximetry 08/15/17 08/15/17 08/15/17 04:50 05:00 05:10 Temperature Pulse Rate 106 H 105 H 110 H Respiratory 12 10 L 13 Rate Blood Pressure 189/122 160/106 160/106 O2 Sat by Pulse 100 99 100 Oximetry 08/15/17 08/15/17 08/15/17 05:20 05:30 05:40 Temperature Pulse Rate 113 H 112 H 109 H Respiratory 13 11 L 13 Rate Blood Pressure 160/106 155/98 155/98 O2 Sat by Pulse 100 100 100 Oximetry 08/15/17 08/15/17 08/15/17 05:50 06:00 06:10 Temperature Pulse Rate 111 H 112 H 113 H Respiratory 12 13 12 Rate Blood Pressure 160/106 187/107 187/107 O2 Sat by Pulse 100 100 100 Oximetry 08/15/17 08/15/17 08/15/17 06:20 06:30 06:40 Temperature Pulse Rate 119 H 116 H 111 H Respiratory 15 12 15 Rate Blood Pressure 187/111 200/115 200/115 O2 Sat by Pulse 100 100 99 Oximetry 08/15/17 08/15/17 08/15/17 06:43 06:50 07:00 Temperature Pulse Rate 112 H 120 H 113 H Respiratory 15 17 Rate Blood Pressure 200/115 200/115 209/111 O2 Sat by Pulse 100 100 Oximetry 08/15/17 08/15/17 08/15/17 07:10 07:20 07:30 Temperature Pulse Rate 118 H 118 H 114 H Respiratory 14 11 L 19 Rate Blood Pressure 209/111 137/86 163/79 O2 Sat by Pulse 100 100 100 Oximetry 08/15/17 08/15/17 08/15/17 07:40 07:50 08:00 Temperature 98.4 F Pulse Rate 112 H 115 H 109 H Respiratory 12 17 14 Rate Blood Pressure 163/79 163/79 125/88 O2 Sat by Pulse 97 97 95 Oximetry 08/15/17 08/15/17 08/15/17 08:10 08:20 08:30 Temperature Pulse Rate 105 H 105 H 104 H Respiratory 16 14 10 L Rate Blood Pressure 125/88 125/88 120/82 O2 Sat by Pulse 99 97 96 Oximetry 08/15/17 08:40 Temperature Pulse Rate 100 H Respiratory 11 L Rate Blood Pressure 120/82 O2 Sat by Pulse 96 Oximetry - General Appearance General appearance: well-developed, well-nourished, appears stated age EENT: PERRL, mucous membranes moist Neck: no JVD, no thyromegaly, no carotid bruit, supple Respiratory: Present: Clear to Ascultation Cardiology: regular, normal heart rate, S1S2, no murmurs Gastrointestinal: normal, normoactive bowel sounds Integumentary: no rash, other (AV graft in his right upper arm. Good bruit and thrill) - Lab 08/15/17 05:38 08/15/17 05:38 Most recent lab results Calcium 10.0 mg/dL (8.4-10.2) 08/15/17 05:38 Phosphorus 3.80 mg/dL (2.5-4.5) 08/14/17 09:52 Magnesium 2.10 mg/dL (1.7-2.3) 08/14/17 09:52
[2017-08-15] MEDS ORDERED: PEPCID IV SCH (10:00)
--- NOTE | 2017-08-15 10:10 | Progress Note ---
Assessment and Plan Hypertensive Emergency with Chest Pains and Headache NSTEMI HyperOsmolar Non Ketotic State ESRD on Dialysis Anxiety DM II Anemia - transition to long acting insulin and stop IV insulin - off IV cardene drip and will schedule hydralazine with hold parameters while re-introducing home p.o. clonidine - xanax 0.125mg X 1 dose ordered for anxiety - continue SSI - introduce oral diet - continue GI & VTE prophylaxis - re-evaluate for transfer to regular floor Subjective Date of service: 08/15/17 Principal diagnosis: Hypertensive Emergency; ESRD on Dialysis Interval history: Patient is seen today for: Resolving HTNsive Emergency; poorly controlled HTN, Uncontrolled Diabetes and ESRD on dialysis Seen and examined at bedside; 24hour events reviewed; nursing and respiratory care staff consulted; no adverse overnight events reported to me; depressed affect but states that he is anxious and will like something to calm him down; + Nausea but no vomiting; remains on IV insulin; headache resolved and BP's better Objective Vital Signs - 12hr 08/14/17 08/14/17 08/14/17 22:10 22:20 22:30 Temperature Pulse Rate 113 H 114 H 116 H Respiratory 17 17 15 Rate Blood Pressure 128/89 150/106 150/106 O2 Sat by Pulse 89 95 95 Oximetry 08/14/17 08/14/17 08/14/17 22:40 22:50 23:00 Temperature Pulse Rate 118 H 123 H 114 H Respiratory 11 L 19 11 L Rate Blood Pressure 139/92 139/92 141/91 O2 Sat by Pulse 95 99 Oximetry 08/14/17 08/14/17 08/14/17 23:10 23:20 23:30 Temperature Pulse Rate 125 H 111 H 108 H Respiratory 11 L 13 13 Rate Blood Pressure 141/91 143/86 143/86 O2 Sat by Pulse 98 91 90 Oximetry 08/14/17 08/14/17 08/14/17 23:40 23:48 23:50 Temperature Pulse Rate 108 H 108 H 115 H Respiratory 13 13 11 L Rate Blood Pressure 136/85 141/91 136/85 O2 Sat by Pulse 89 90 Oximetry 08/14/17 08/15/17 08/15/17 23:52 00:00 00:10 Temperature 98.5 F Pulse Rate 119 H 118 H 111 H Respiratory 12 15 12 Rate Blood Pressure 136/85 151/89 136/85 O2 Sat by Pulse 97 95 89 Oximetry 08/15/17 08/15/17 08/15/17 00:20 00:30 00:40 Temperature Pulse Rate 113 H 108 H 105 H Respiratory 15 13 10 L Rate Blood Pressure 154/101 154/101 136/87 O2 Sat by Pulse 88 85 84 Oximetry 08/15/17 08/15/17 08/15/17 00:50 01:00 01:10 Temperature Pulse Rate 103 H 104 H 103 H Respiratory 16 10 L 11 L Rate Blood Pressure 136/87 129/82 136/87 O2 Sat by Pulse 94 86 91 Oximetry 08/15/17 08/15/17 08/15/17 01:20 01:30 01:40 Temperature Pulse Rate 104 H 100 H 105 H Respiratory 10 L 11 L 11 L Rate Blood Pressure 129/71 129/71 133/81 O2 Sat by Pulse 89 90 88 Oximetry 08/15/17 08/15/17 08/15/17 01:50 02:00 02:10 Temperature Pulse Rate 100 H 102 H 107 H Respiratory 10 L 10 L 11 L Rate Blood Pressure 133/81 133/81 133/81 O2 Sat by Pulse 90 91 94 Oximetry 08/15/17 08/15/17 08/15/17 02:20 02:30 02:40 Temperature Pulse Rate 110 H 113 H 115 H Respiratory 13 10 L 11 L Rate Blood Pressure 163/104 163/104 109/73 O2 Sat by Pulse 91 100 100 Oximetry 08/15/17 08/15/17 08/15/17 02:50 03:00 03:10 Temperature Pulse Rate 113 H 114 H 117 H Respiratory 11 L 13 14 Rate Blood Pressure 109/73 163/91 171/108 O2 Sat by Pulse 100 99 99 Oximetry 08/15/17 08/15/17 08/15/17 03:20 03:30 03:40 Temperature Pulse Rate 108 H 108 H 107 H Respiratory 15 11 L 15 Rate Blood Pressure 171/108 138/99 138/99 O2 Sat by Pulse 100 99 100 Oximetry 08/15/17 08/15/17 08/15/17 03:50 04:00 04:10 Temperature 98.8 F Pulse Rate 106 H 112 H 115 H Respiratory 11 L 13 19 Rate Blood Pressure 138/99 174/108 169/102 O2 Sat by Pulse 100 100 100 Oximetry 08/15/17 08/15/17 08/15/17 04:20 04:30 04:40 Temperature Pulse Rate 122 H 108 H 111 H Respiratory 20 14 11 L Rate Blood Pressure 169/102 189/122 189/122 O2 Sat by Pulse 100 99 99 Oximetry 08/15/17 08/15/17 08/15/17 04:50 05:00 05:10 Temperature Pulse Rate 106 H 105 H 110 H Respiratory 12 10 L 13 Rate Blood Pressure 189/122 160/106 160/106 O2 Sat by Pulse 100 99 100 Oximetry 08/15/17 08/15/17 08/15/17 05:20 05:30 05:40 Temperature Pulse Rate 113 H 112 H 109 H Respiratory 13 11 L 13 Rate Blood Pressure 160/106 155/98 155/98 O2 Sat by Pulse 100 100 100 Oximetry 08/15/17 08/15/17 08/15/17 05:50 06:00 06:10 Temperature Pulse Rate 111 H 112 H 113 H Respiratory 12 13 12 Rate Blood Pressure 160/106 187/107 187/107 O2 Sat by Pulse 100 100 100 Oximetry 08/15/17 08/15/17 08/15/17 06:20 06:30 06:40 Temperature Pulse Rate 119 H 116 H 111 H Respiratory 15 12 15 Rate Blood Pressure 187/111 200/115 200/115 O2 Sat by Pulse 100 100 99 Oximetry 08/15/17 08/15/17 08/15/17 06:43 06:50 07:00 Temperature Pulse Rate 112 H 120 H 113 H Respiratory 15 17 Rate Blood Pressure 200/115 200/115 209/111 O2 Sat by Pulse 100 100 Oximetry 08/15/17 08/15/17 08/15/17 07:10 07:20 07:30 Temperature Pulse Rate 118 H 118 H 114 H Respiratory 14 11 L 19 Rate Blood Pressure 209/111 137/86 163/79 O2 Sat by Pulse 100 100 100 Oximetry 08/15/17 08/15/17 08/15/17 07:40 07:50 08:00 Temperature 98.4 F Pulse Rate 112 H 115 H 109 H Respiratory 12 17 14 Rate Blood Pressure 163/79 163/79 125/88 O2 Sat by Pulse 97 97 95 Oximetry 08/15/17 08/15/17 08/15/17 08:10 08:20 08:30 Temperature Pulse Rate 105 H 105 H 104 H Respiratory 16 14 10 L Rate Blood Pressure 125/88 125/88 120/82 O2 Sat by Pulse 99 97 96 Oximetry 08/15/17 08/15/17 08/15/17 08:40 08:50 09:00 Temperature Pulse Rate 100 H 100 H 101 H Respiratory 11 L 10 L 11 L Rate Blood Pressure 120/82 125/88 114/71 O2 Sat by Pulse 96 96 96 Oximetry 08/15/17 08/15/17 08/15/17 09:10 09:20 09:30 Temperature Pulse Rate 100 H 100 H 99 H Respiratory 10 L 10 L 10 L Rate Blood Pressure 114/71 114/71 124/74 O2 Sat by Pulse 96 96 97 Oximetry Constitutional: appears uncomfortable, other Eyes: non-icteric ENT: oropharynx moist Neck: supple, no lymphadenopathy, no JVD, other (no organomegaly) Effort: normal Ascultation: Bilateral: clear Percussion: Bilateral: not dull Cardiovascular: regular rate and rhythm, other (no rubs or murmurs) Gastrointestinal: hypoactive bowel sounds, soft, tender (mild; diffusely; no hepatosplenomegaly) Integumentary: normal, other (no erhythema or cellulitis) Extremities: no cyanosis, no edema, pulses normal, no ischemia or petechiae Neurologic: normal mental status, non-focal exam, pupils equal and round, motor strength normal and Psychiatric: anxious, depressed CBC and BMP: 08/15/17 05:38 08/15/17 09:46 ABG, PT/INR, D-dimer: PT/INR, D-dimer PT 15.5 Sec. (12.2-14.9) H 08/14/17 08:45 INR 1.17 (0.87-1.13) H 08/14/17 08:45 Abnormal lab findings: Abnormal Labs 08/14/17 08/14/17 08/14/17 11:06 11:32 11:32 WBC RDW Seg Neuts % (Manual) Lymphocytes % (Manual) Seg Neutrophils # Man Monocytes # (Manual) Sodium Potassium 5.4 H Chloride Carbon Dioxide 18 L BUN 46 H Creatinine 6.7 H Glucose 503 H* POC Glucose > 500 H Hemoglobin A1c Lactic Acid Calcium 7.3 L Troponin T C-Reactive Protein 2.40 H NT-Pro-B Natriuret Pep 08/14/17 08/14/17 08/14/17 11:32 12:19 13:29 WBC RDW Seg Neuts % (Manual) Lymphocytes % (Manual) Seg Neutrophils # Man Monocytes # (Manual) Sodium Potassium Chloride Carbon Dioxide BUN Creatinine Glucose POC Glucose 391 H 358 H Hemoglobin A1c Lactic Acid Calcium Troponin T C-Reactive Protein NT-Pro-B Natriuret Pep 6335 H 08/14/17 08/14/17 08/14/17 14:20 14:20 14:20 WBC RDW Seg Neuts % (Manual) Lymphocytes % (Manual) Seg Neutrophils # Man Monocytes # (Manual) Sodium Potassium 3.5 L D Chloride Carbon Dioxide BUN 53 H Creatinine 8.1 H Glucose 390 H POC Glucose Hemoglobin A1c Lactic Acid 2.20 H* Calcium Troponin T 0.440 H* C-Reactive Protein NT-Pro-B Natriuret Pep 08/14/17 08/14/17 08/14/17 14:53 16:28 18:31 WBC RDW Seg Neuts % (Manual) Lymphocytes % (Manual) Seg Neutrophils # Man Monocytes # (Manual) Sodium 131 L D Potassium 2.9 L* Chloride 90.5 L Carbon Dioxide 21 L BUN 47 H Creatinine 7.8 H Glucose 739 H* POC Glucose 383 H 218 H Hemoglobin A1c Lactic Acid Calcium 7.9 L Troponin T C-Reactive Protein NT-Pro-B Natriuret Pep 08/14/17 08/14/17 08/14/17 19:00 19:00 19:18 WBC RDW Seg Neuts % (Manual) Lymphocytes % (Manual) Seg Neutrophils # Man Monocytes # (Manual) Sodium 147 H D Potassium 3.5 L D Chloride Carbon Dioxide BUN 23 H Creatinine 4.0 H Glucose 187 H POC Glucose 169 H Hemoglobin A1c Lactic Acid Calcium 10.7 H D Troponin T 0.478 H* C-Reactive Protein NT-Pro-B Natriuret Pep 08/14/17 08/14/17 08/14/17 20:20 20:59 21:36 WBC RDW Seg Neuts % (Manual) Lymphocytes % (Manual) Seg Neutrophils # Man Monocytes # (Manual) Sodium 146 H Potassium Chloride Carbon Dioxide BUN 26 H Creatinine 5.1 H Glucose 254 H POC Glucose 224 H 227 H Hemoglobin A1c Lactic Acid Calcium Troponin T C-Reactive Protein NT-Pro-B Natriuret Pep 08/14/17 08/14/17 08/15/17 22:19 23:04 00:18 WBC RDW Seg Neuts % (Manual) Lymphocytes % (Manual) Seg Neutrophils # Man Monocytes # (Manual) Sodium Potassium Chloride Carbon Dioxide BUN Creatinine Glucose POC Glucose 217 H 227 H 205 H Hemoglobin A1c Lactic Acid Calcium Troponin T C-Reactive Protein NT-Pro-B Natriuret Pep 08/15/17 08/15/17 08/15/17 01:13 02:09 03:08 WBC RDW Seg Neuts % (Manual) Lymphocytes % (Manual) Seg Neutrophils # Man Monocytes # (Manual) Sodium Potassium Chloride Carbon Dioxide BUN Creatinine Glucose POC Glucose 224 H 193 H 212 H Hemoglobin A1c Lactic Acid Calcium Troponin T C-Reactive Protein NT-Pro-B Natriuret Pep 08/15/17 08/15/17 08/15/17 03:59 05:10 05:38 WBC RDW Seg Neuts % (Manual) Lymphocytes % (Manual) Seg Neutrophils # Man Monocytes # (Manual) Sodium Potassium Chloride Carbon Dioxide BUN Creatinine Glucose POC Glucose 193 H 161 H Hemoglobin A1c 10.7 H Lactic Acid Calcium Troponin T C-Reactive Protein NT-Pro-B Natriuret Pep 08/15/17 08/15/17 08/15/17 05:38 05:38 07:55 WBC 23.6 H RDW 16.1 H Seg Neuts % (Manual) 83.0 H Lymphocytes % (Manual) 11.0 L Seg Neutrophils # Man 19.6 H Monocytes # (Manual) 1.4 H Sodium 149 H Potassium Chloride Carbon Dioxide BUN 31 H Creatinine 7.4 H Glucose 137 H POC Glucose 196 H Hemoglobin A1c Lactic Acid Calcium Troponin T C-Reactive Protein NT-Pro-B Natriuret Pep 08/15/17 09:38 WBC RDW Seg Neuts % (Manual) Lymphocytes % (Manual) Seg Neutrophils # Man Monocytes # (Manual) Sodium Potassium Chloride Carbon Dioxide BUN Creatinine Glucose POC Glucose 231 H Hemoglobin A1c Lactic Acid Calcium Troponin T C-Reactive Protein NT-Pro-B Natriuret Pep Chest x-ray: image reviewed (from yesterday; no acute process) Allied health notes reviewed: nursing
[2017-08-15 10:23] LABS: BUN/Creatinine Ratio 5; Blood Urea Nitrogen 24 mg/dL (9-20); Chloride 98.7 mmol/L (98-107)
[2017-08-15 10:36] LABS: Potassium TNR mmol/L (3.6-5.0); Sodium TNR mmol/L (137-145)
[2017-08-15] MEDS ORDERED: LEVEMIR SUB-Q STA (10:49)
[2017-08-15] MEDS ORDERED: XANAX PO STA (10:57)
[2017-08-15] MEDS ORDERED: XANAX PO ONE (11:03)
--- NOTE | 2017-08-15 11:57 | Progress Note ---
Assessment and Plan Severe gastroparesis Hypertension -better Chronic elevated troponin LHC 04/2015- non obstructive CAD echo 04/2015- moderate LVH, normal EF Diabetes ESRD on HD Conservative cardiac management. Subjective Date of service: 08/15/17 Principal diagnosis: Hypertensive Emergency; ESRD on Dialysis Interval history: Patient is resting in bed comfortably. Objective Vital Signs Temp Pulse Resp BP Pulse Ox Pulse Ox 08/15/17 10:10 104 H 10 L 175/99 98 08/15/17 10:00 103 H 14 175/99 99 08/15/17 09:50 94 H 11 L 124/74 98 08/15/17 09:40 94 H 12 124/74 96 08/15/17 09:30 99 H 10 L 124/74 97 08/15/17 09:20 100 H 10 L 114/71 96 08/15/17 09:10 100 H 10 L 114/71 96 08/15/17 09:00 101 H 11 L 114/71 96 08/15/17 08:50 100 H 10 L 125/88 96 08/15/17 08:40 100 H 11 L 120/82 96 08/15/17 08:30 104 H 10 L 120/82 96 08/15/17 08:20 105 H 14 125/88 97 08/15/17 08:10 105 H 16 125/88 99 08/15/17 08:00 98.4 F 109 H 14 125/88 95 08/15/17 07:50 115 H 17 163/79 97 08/15/17 07:40 112 H 12 163/79 97 08/15/17 07:30 114 H 19 163/79 100 08/15/17 07:20 118 H 11 L 137/86 100 08/15/17 07:10 118 H 14 209/111 100 08/15/17 07:00 113 H 17 209/111 100 08/15/17 06:50 120 H 15 200/115 100 08/15/17 06:43 112 H 200/115 08/15/17 06:40 111 H 15 200/115 99 08/15/17 06:30 116 H 12 200/115 100 08/15/17 06:20 119 H 15 187/111 100 08/15/17 06:10 113 H 12 187/107 100 08/15/17 06:00 112 H 13 187/107 100 08/15/17 05:50 111 H 12 160/106 100 08/15/17 05:40 109 H 13 155/98 100 08/15/17 05:30 112 H 11 L 155/98 100 08/15/17 05:20 113 H 13 160/106 100 08/15/17 05:10 110 H 13 160/106 100 08/15/17 05:00 105 H 10 L 160/106 99 08/15/17 04:50 106 H 12 189/122 100 08/15/17 04:40 111 H 11 L 189/122 99 08/15/17 04:30 108 H 14 189/122 99 08/15/17 04:20 122 H 20 169/102 100 08/15/17 04:10 115 H 19 169/102 100 08/15/17 04:00 98.8 F 112 H 13 174/108 100 08/15/17 03:50 106 H 11 L 138/99 100 08/15/17 03:40 107 H 15 138/99 100 08/15/17 03:30 108 H 11 L 138/99 99 08/15/17 03:20 108 H 15 171/108 100 08/15/17 03:10 117 H 14 171/108 99 08/15/17 03:00 114 H 13 163/91 99 08/15/17 02:50 113 H 11 L 109/73 100 08/15/17 02:40 115 H 11 L 109/73 100 08/15/17 02:30 113 H 10 L 163/104 100 08/15/17 02:20 110 H 13 163/104 91 08/15/17 02:10 107 H 11 L 133/81 94 08/15/17 02:00 102 H 10 L 133/81 91 08/15/17 01:50 100 H 10 L 133/81 90 08/15/17 01:40 105 H 11 L 133/81 88 08/15/17 01:30 100 H 11 L 129/71 90 08/15/17 01:20 104 H 10 L 129/71 89 08/15/17 01:10 103 H 11 L 136/87 91 08/15/17 01:00 104 H 10 L 129/82 86 08/15/17 00:50 103 H 16 136/87 94 08/15/17 00:40 105 H 10 L 136/87 84 08/15/17 00:30 108 H 13 154/101 85 08/15/17 00:20 113 H 15 154/101 88 08/15/17 00:10 111 H 12 136/85 89 08/15/17 00:00 98.5 F 118 H 15 151/89 95 08/14/17 23:52 119 H 12 136/85 97 08/14/17 23:50 115 H 11 L 136/85 90 08/14/17 23:48 108 H 13 141/91 89 08/14/17 23:40 108 H 13 136/85 08/14/17 23:30 108 H 13 143/86 90 08/14/17 23:20 111 H 13 143/86 91 08/14/17 23:10 125 H 11 L 141/91 98 08/14/17 23:00 114 H 11 L 141/91 08/14/17 22:50 123 H 19 139/92 99 08/14/17 22:40 118 H 11 L 139/92 95 08/14/17 22:30 116 H 15 150/106 95 08/14/17 22:20 114 H 17 150/106 95 08/14/17 22:10 113 H 17 128/89 89 08/14/17 22:00 117 H 16 128/89 91 08/14/17 21:50 115 H 13 116/76 95 08/14/17 21:40 111 H 12 116/76 94 08/14/17 21:30 113 H 14 133/103 95 08/14/17 21:20 115 H 14 138/87 93 08/14/17 21:10 116 H 20 138/87 93 08/14/17 21:00 119 H 10 L 138/87 08/14/17 20:50 111 H 14 144/84 92 08/14/17 20:40 113 H 15 144/84 93 08/14/17 20:30 115 H 7 L 129/77 98 08/14/17 20:25 98.6 F 114 H 17 123/79 95 08/14/17 20:20 114 H 13 128/72 93 08/14/17 20:15 114 H 117/68 08/14/17 20:10 114 H 13 129/72 08/14/17 20:00 98.6 F 114 H 16 123/79 95 08/14/17 19:50 115 H 12 117/68 08/14/17 19:45 120 H 101/49 08/14/17 19:40 113 H 22 118/76 93 08/14/17 19:30 121 H 19 98/53 96 08/14/17 19:20 119 H 14 101/49 97 08/14/17 19:15 118 H 125/72 08/14/17 19:10 115 H 17 120/72 94 08/14/17 19:00 123 H 13 138/83 93 08/14/17 18:50 120 H 21 138/83 99 08/14/17 18:45 118 H 128/79 08/14/17 18:40 119 H 16 128/79 08/14/17 18:30 116 H 16 135/94 99 08/14/17 18:20 122 H 23 115/85 96 08/14/17 18:15 119 H 129/79 08/14/17 18:10 119 H 14 129/79 97 08/14/17 18:00 127 H 13 113/66 98 08/14/17 17:50 124 H 17 125/65 99 08/14/17 17:45 118 H 117/66 08/14/17 17:40 115 H 19 114/72 98 08/14/17 17:30 118 H 16 117/66 98 08/14/17 17:20 112 H 13 125/67 97 08/14/17 17:15 112 H 132/69 08/14/17 17:10 113 H 19 132/69 97 08/14/17 17:00 97.9 F 114 H 22 112/64 97 97 08/14/17 16:50 112 H 13 121/55 99 08/14/17 16:40 115 H 21 121/55 98 08/14/17 16:30 109 H 15 121/55 92 08/14/17 16:20 113 H 13 121/55 95 08/14/17 16:10 110 H 19 121/55 98 08/14/17 16:00 97.9 F 110 H 14 121/55 89 08/14/17 15:50 110 H 10 L 128/63 90 08/14/17 15:40 108 H 16 128/63 98 08/14/17 15:30 109 H 14 128/63 97 08/14/17 15:20 111 H 8 L 128/63 95 08/14/17 15:15 18 100 10/08/17 15:10 104 H 13 97 08/14/17 15:07 106 H 18 99 08/14/17 14:56 13 08/14/17 14:33 106 H 15 141/86 98 08/14/17 14:32 105 H 15 141/86 98 08/14/17 14:30 107 H 16 141/86 08/14/17 14:20 105 H 12 142/71 99 08/14/17 14:10 110 H 21 135/82 99 08/14/17 14:00 108 H 14 131/86 99 08/14/17 13:50 105 H 12 146/89 99 08/14/17 13:40 110 H 16 147/98 97 08/14/17 13:30 110 H 16 134/87 98 08/14/17 13:20 12 135/91 08/14/17 13:10 98 H 15 109/71 98 08/14/17 13:00 102 H 14 120/76 08/14/17 12:50 100 H 22 101/67 08/14/17 12:40 104 H 15 117/74 97 08/14/17 12:30 104 H 15 132/85 08/14/17 12:20 110 H 19 126/80 99 08/14/17 12:10 113 H 20 132/81 100 08/14/17 12:00 108 H 15 144/90 - Physical Examination General: No Apparent Distress HEENT: Positive: PERRL Neck: Positive: neck supple Cardiac: Positive: Reg Rate and Rhythm - Labs and Meds CBC 08/15/17 Range/Units 05:38 WBC 23.6 H (4.5-11.0) K/mm3 RBC 4.50 (3.65-5.03) M/mm3 Hgb 12.5 (11.8-15.2) gm/dl Hct 39.6 (35.5-45.6) % Plt Count 140 (140-440) K/mm3 Comprehensive Metabolic Panel 08/14/17 08/14/17 08/14/17 Range/Units 11:32 14:20 16:28 Sodium 141 145 131 L D (137-145) mmol/L Potassium 5.4 H 3.5 L D 2.9 L* (3.6-5.0) mmol/L Chloride 103.2 100.0 90.5 L (98-107) mmol/L Carbon Dioxide 18 L 23 21 L (22-30) mmol/L BUN 46 H 53 H 47 H (9-20) mg/dL Creatinine 6.7 H 8.1 H 7.8 H (0.8-1.5) mg/dL Glucose 503 H* 390 H 739 H* (75-100) mg/dL Calcium 7.3 L 9.2 D 7.9 L (8.4-10.2) mg/dL 08/14/17 08/14/17 08/15/17 Range/Units 19:00 21:36 05:38 Sodium 147 H D 146 H 149 H (137-145) mmol/L Potassium 3.5 L D 4.8 D 3.7 D (3.6-5.0) mmol/L Chloride 102.8 101.7 101.8 (98-107) mmol/L Carbon Dioxide 24 25 25 (22-30) mmol/L BUN 23 H 26 H 31 H (9-20) mg/dL Creatinine 4.0 H 5.1 H 7.4 H (0.8-1.5) mg/dL Glucose 187 H 254 H 137 H (75-100) mg/dL Calcium 10.7 H D 10.2 10.0 (8.4-10.2) mg/dL 08/15/17 Range/Units 09:46 Sodium TNR (137-145) mmol/L Potassium TNR (3.6-5.0) mmol/L Chloride 98.7 (98-107) mmol/L Carbon Dioxide (22-30) mmol/L BUN 24 H (9-20) mg/dL Creatinine 5.0 H (0.8-1.5) mg/dL Glucose (75-100) mg/dL Calcium (8.4-10.2) mg/dL
[2017-08-15 12:18] LABS: Anion Gap TNR mmol/L; Calcium TNR mg/dL (8.4-10.2); Carbon Dioxide TNR mmol/L (22-30); Glucose TNR mg/dL (75-100)
[2017-08-15] MEDS ORDERED: REGLAN IV PRN (14:30)
[2017-08-15] MEDS ORDERED: ZOFRAN IV PRN (14:30)
--- NOTE | 2017-08-15 14:41 | Progress Note ---
Assessment and Plan Assessment and plan: This is a 36-year-old man history end-stage renal disease on hemodialysis Tuesday, hypertension and diabetes mellitus type 2 on insulin who presents with chest pain. Found to have uncontrolled blood sugars but his VbG was 7.579 and he was started on insulin drip, admitted to the ICU on Cardene drip. -Malignant hypertension: Cardene weaned off, use IV when necessary labetalol instead of hydralazine due to tachycardia, clonidine maybe a poor choice due to risks of rebound hypertension with noncompliance -ESRD: needing hemodialysis, renal is following -HONK not DKA: stop insulin drip, start long acting but half the dose until he starts eating better -Uncontrolled type 2 diabetes mellitus on insulin, A1c of 10.1 which is indicative of poorly controlled diabetes mellitus: Counseling on compliance done -DVT prophylaxis: add sq heparin History Interval history: Patient was seen and examined. Follow-up on current diagnosis/blood pressure. Overnight uneventful. Patient denies any chest pain, shortness breath, nausea/ vomiting or severe headaches. Imaging, nursing note, chart, labs and old chart reviewed. Discussed with patient. Hospitalist Physical - Physical exam Narrative exam: GEN: WDWN, NAD, AWAKE, ALERT, ORIENTATED 3 HEENT: NCAT, EOMI, PERRL, OP Clear NECK: supple, no adenopathy, no thyromegaly, no JVD CVS/HEART: RRR, NORMAL S1S2, NO JVD, pulses present bilaterally CHEST/LUNGS: CTA B, Symmetrical chest expansion, good air entry bilaterally GI/Abdomen: soft, NTND, good bowel sounds, no guarding or rebound /Bladder: no suprapubic tenderness, no CVA or paraspinal tenderness EXT/Skin: no c/c/e, no significant edema or obvious rash MSK: FROM x 4 Neuro: CN 2-12 grossly intact, no new focal deficits Psych: calm - Constitutional Vitals: Temp Pulse Resp BP Pulse Ox 98.6 F 100 H 10 L 170/98 92 08/15/17 13:00 08/15/17 12:00 08/15/17 12:00 08/15/17 12:00 08/15/17 12:00 General appearance: Present: no acute distress Results - Labs CBC & Chem 7: 08/15/17 05:38 08/15/17 09:46 Labs: Laboratory Last Values WBC 23.6 K/mm3 (4.5-11.0) H 08/15/17 05:38 RBC 4.50 M/mm3 (3.65-5.03) 08/15/17 05:38 Hgb 12.5 gm/dl (11.8-15.2) 08/15/17 05:38 Hct 39.6 % (35.5-45.6) 08/15/17 05:38 MCV 88 fl (84-94) 08/15/17 05:38 MCH 28 pg (28-32) 08/15/17 05:38 MCHC 32 % (32-34) 08/15/17 05:38 RDW 16.1 % (13.2-15.2) H 08/15/17 05:38 Plt Count 140 K/mm3 (140-440) 08/15/17 05:38 Lymph % (Auto) 5.7 % (13.4-35.0) L 08/14/17 08:45 [place] % (Auto) 7.1 % (0.0-7.3) 08/14/17 08:45 Eos % (Auto) 0.0 % (0.0-4.3) 08/14/17 08:45 Baso % (Auto) 0.2 % (0.0-1.8) 08/14/17 08:45 Lymph # 0.9 K/mm3 (1.2-5.4) L 08/14/17 08:45 [place] # 1.1 K/mm3 (0.0-0.8) H 08/14/17 08:45 Eos # 0.0 K/mm3 (0.0-0.4) 08/14/17 08:45 Baso # 0.0 K/mm3 (0.0-0.1) 08/14/17 08:45 Add Manual Diff Complete 08/15/17 05:38 Total Counted 100 08/15/17 05:38 Seg Neutrophils % 87.0 % (40.0-70.0) H 08/14/17 08:45 Seg Neuts % (Manual) 83.0 % (40.0-70.0) H 08/15/17 05:38 Band Neutrophils % 0 % 08/15/17 05:38 Lymphocytes % (Manual) 11.0 % (13.4-35.0) L 08/15/17 05:38 Reactive Lymphs % (Man) 0 % 08/15/17 05:38 Monocytes % (Manual) 6.0 % (0.0-7.3) 08/15/17 05:38 Eosinophils % (Manual) 0 % (0.0-4.3) 08/15/17 05:38 Metamyelocytes % 0 % 08/15/17 05:38 Myelocytes % 0 % 08/15/17 05:38 Promyelocytes % 0 % 08/15/17 05:38 Blast Cells % 0 % 08/15/17 05:38 Nucleated RBC % Not Reportable 08/15/17 05:38 Seg Neutrophils # 13.4 K/mm3 (1.8-7.7) H 08/14/17 08:45 Seg Neutrophils # Man 19.6 K/mm3 (1.8-7.7) H 08/15/17 05:38 Band Neutrophils # 0.0 K/mm3 08/15/17 05:38 Lymphocytes # (Manual) 2.6 K/mm3 (1.2-5.4) 08/15/17 05:38 Abs React Lymphs (Man) 0.0 K/mm3 08/15/17 05:38 Monocytes # (Manual) 1.4 K/mm3 (0.0-0.8) H 08/15/17 05:38 Eosinophils # (Manual) 0.0 K/mm3 (0.0-0.4) 08/15/17 05:38 Basophils # (Manual) 0.0 K/mm3 (0.0-0.1) 08/15/17 05:38 Metamyelocytes # 0.0 K/mm3 08/15/17 05:38 Myelocytes # 0.0 K/mm3 08/15/17 05:38 Promyelocytes # 0.0 K/mm3 08/15/17 05:38 Blast Cells # 0.0 K/mm3 08/15/17 05:38 WBC Morphology Not Reportable 08/15/17 05:38 Hypersegmented Neuts Not Reportable 08/15/17 05:38 Hyposegmented Neuts Not Reportable 08/15/17 05:38 Hypogranular Neuts Not Reportable 08/15/17 05:38 Smudge Cells Not Reportable 08/15/17 05:38 Toxic Granulation Not Reportable 08/15/17 05:38 Toxic Vacuolation Not Reportable 08/15/17 05:38 Dohle Bodies Not Reportable 08/15/17 05:38 Pelger-Huet Anomaly Not Reportable 08/15/17 05:38 Kate Rods Not Reportable 08/15/17 05:38 Platelet Estimate Consistent w auto 08/15/17 05:38 Clumped Platelets Not Reportable 08/15/17 05:38 Plt Clumps, EDTA Not Reportable 08/15/17 05:38 Large Platelets Not Reportable 08/15/17 05:38 Giant Platelets Not Reportable 08/15/17 05:38 Platelet Satelliting Not Reportable 08/15/17 05:38 Plt Morphology Comment Not Reportable 08/15/17 05:38 RBC Morphology Normal 08/15/17 05:38 Dimorphic RBCs Not Reportable 08/15/17 05:38 Polychromasia Not Reportable 08/15/17 05:38 Hypochromasia Not Reportable 08/15/17 05:38 Poikilocytosis Not Reportable 08/15/17 05:38 Anisocytosis Not Reportable 08/15/17 05:38 Microcytosis Not Reportable 08/15/17 05:38 Macrocytosis Not Reportable 08/15/17 05:38 Spherocytes Not Reportable 08/15/17 05:38 Pappenheimer Bodies Not Reportable 08/15/17 05:38 Sickle Cells Not Reportable 08/15/17 05:38 Target Cells Not Reportable 08/15/17 05:38 Tear Drop Cells Not Reportable 08/15/17 05:38 Ovalocytes Not Reportable 08/15/17 05:38 Helmet Cells Not Reportable 08/15/17 05:38 Bustos-[place] Bodies Not Reportable 08/15/17 05:38 [place] Rings Not Reportable 08/15/17 05:38 [place] Cells Not Reportable 08/15/17 05:38 Bite Cells Not Reportable 08/15/17 05:38 Crenated Cell Not Reportable 08/15/17 05:38 Elliptocytes Not Reportable 08/15/17 05:38 Acanthocytes (Spur) Not Reportable 08/15/17 05:38 Rouleaux Not Reportable 08/15/17 05:38 Hemoglobin C Crystals Not Reportable 08/15/17 05:38 Schistocytes Not Reportable 08/15/17 05:38 Malaria parasites Not Reportable 08/15/17 05:38 Fredi Bodies Not Reportable 08/15/17 05:38 Hem Pathologist Commnt No 08/15/17 05:38 PT 15.5 Sec. (12.2-14.9) H 08/14/17 08:45 INR 1.17 (0.87-1.13) H 08/14/17 08:45 VBG pH 7.519 (7.320-7.420) H 08/14/17 08:45 Sodium TNR 08/15/17 09:46 Potassium TNR 08/15/17 09:46 Chloride 98.7 mmol/L (98-107) 08/15/17 09:46 Carbon Dioxide TNR 08/15/17 09:46 Anion Gap TNR 08/15/17 09:46 BUN 24 mg/dL (9-20) H 08/15/17 09:46 Creatinine 5.0 mg/dL (0.8-1.5) H 08/15/17 09:46 Estimated GFR 16 ml/min 08/15/17 09:46 BUN/Creatinine Ratio 5 % 08/15/17 09:46 Glucose TNR 08/15/17 09:46 POC Glucose 165 (70-105) H 08/15/17 12:03 Hemoglobin A1c 10.7 % (4-6) H 08/15/17 05:38 Lactic Acid 1.20 mmol/L (0.7-2.0) 08/15/17 05:38 Calcium TNR 08/15/17 09:46 Phosphorus 3.80 mg/dL (2.5-4.5) 08/14/17 09:52 Magnesium 2.10 mg/dL (1.7-2.3) 08/14/17 09:52 Total Bilirubin 0.40 mg/dL (0.1-1.2) 08/14/17 08:45 AST 15 units/L (5-40) 08/14/17 08:45 ALT < 5 units/L (7-56) L 08/14/17 08:45 Alkaline Phosphatase 94 units/L (35-129) 08/14/17 08:45 Total Creatine Kinase 715 units/L (55-170) H 08/14/17 09:52 Troponin T 0.478 ng/mL (0.00-0.029) H* 08/14/17 19:00 C-Reactive Protein 2.40 mg/dL (0.00-1.30) H 08/14/17 11:32 NT-Pro-B Natriuret Pep 6335 pg/mL (0-450) H 08/14/17 11:32 Total Protein 8.1 g/dL (6.3-8.2) 08/14/17 08:45 Albumin 4.2 g/dL (3.9-5) 08/14/17 08:45 Albumin/Globulin Ratio 1.1 % 08/14/17 08:45 Triglycerides 243 mg/dL (2-149) H 08/14/17 08:45 Cholesterol 180 mg/dL (50-199) 08/14/17 08:45 LDL Cholesterol Direct 83 mg/dL (50-130) 08/14/17 08:45 HDL Cholesterol 49 mg/dL (40-59) 08/14/17 08:45 Cholesterol/HDL Ratio 3.67 % 08/14/17 08:45
[2017-08-15] MEDS: NORVASC PO SCH (14:49)
[2017-08-15 15:32] LABS: Calcium 9.3 mg/dL (8.4-10.2); Chloride 99.5 mmol/L (98-107); Potassium 4.3 mmol/L (3.6-5.0)
[2017-08-15] MEDS: NORMODYNE IV PRN (17:53)
[2017-08-16] MEDS: DILAUDID IV PRN ×4 (03:03→22:34)
[2017-08-16] MEDS: NORMODYNE IV PRN (06:51)
[2017-08-16 07:48] LABS: Mean Corpuscular HGB Conc 31 % (32-34); Mean Corpuscular Hemoglobin 28 pg (28-32); Mean Corpuscular Volume 90 fl (84-94); Platelet Count 145 K/mm3 (140-440); Red Blood Count 4.69 M/mm3 (3.65-5.03); Red Cell Distribution Width 16.2 % (13.2-15.2); White Blood Count 19.4 K/mm3 (4.5-11.0)
[2017-08-16 07:50] LABS: Hematocrit 42.3 % (35.5-45.6); Hemoglobin 12.9 gm/dl (11.8-15.2)
[2017-08-16] MEDS ORDERED: LEVEMIR SUB-Q SCH (08:00)
[2017-08-16] MEDS ORDERED: D50W (25GM) Syringe IV PRN (08:07)
[2017-08-16 08:11] LABS: Calcium 9.2 mg/dL (8.4-10.2); Chloride 93.8 mmol/L (98-107); Magnesium 2.3 mg/dL (1.7-2.3); Potassium 4.5 mmol/L (3.6-5.0)
[2017-08-16] MEDS: LEVEMIR SUB-Q SCH (09:08)
--- NOTE | 2017-08-16 09:31 | Progress Note ---
Assessment and Plan Impression * Diabetic ketoacidosis * Accelerated hypertension * End-stage renal disease. On maintenance hemodialysis * Anemia secondary to ESRD * Lactic acidosis. Rule out underlying sepsis Recommendations * His acidosis seems to have resolved. * Patient is currently out of ICU. Off Insulin drip. Blood sugar noted to be in the 300s. * His electrolytes are not acceptable. * Shall schedule patient for dialysis today and keep him on TTS schedule for now. * Avoid nephrotoxins * His outpatient days are Mondays, Wednesdays and Fridays Subjective Date of service: 08/16/17 Principal diagnosis: Hypertensive Emergency; ESRD on Dialysis Interval history: Patient is out of the ICU. Still complains of some nausea and vomiting. He also has some epigastric discomfort. Objective - Vital Signs Vital signs: Vital Signs - 12hr 08/16/17 08/16/17 08/16/17 06:00 06:51 07:00 Temperature 99.3 F 98.5 F Pulse Rate [ 100 H Left Brachial] Respiratory 20 19 Rate Blood Pressure 186/105 166/105 Blood Pressure 186/103 [Right] O2 Sat by Pulse 95 Oximetry 08/16/17 08:37 Temperature Pulse Rate [ Left Brachial] Respiratory 20 Rate Blood Pressure Blood Pressure [Right] O2 Sat by Pulse Oximetry - General Appearance General appearance: well-developed EENT: PERRL, mucous membranes moist Neck: no JVD, no thyromegaly, no carotid bruit, supple Respiratory: Present: Clear to Ascultation Cardiology: regular, normal heart rate Gastrointestinal: normal, normoactive bowel sounds, tenderness (mild epigastric tenderness) Integumentary: no rash, other (AV graft in his right upper arm. Good bruit and thrill. No edema) Neurologic: no focal deficit - Lab 08/16/17 07:21 08/16/17 07:21 Most recent lab results Calcium 9.2 mg/dL (8.4-10.2) 08/16/17 07:21 Phosphorus 3.80 mg/dL (2.5-4.5) 08/14/17 09:52 Magnesium 2.30 mg/dL (1.7-2.3) 08/16/17 07:21
--- NOTE | 2017-08-16 09:36 | Progress Note ---
Assessment and Plan Severe gastroparesis Hypertension DKA Chronic elevated troponin LHC 04/2015- non obstructive CAD echo 04/2015- moderate LVH, normal EF ESRD on HD Optimal BP management. Subjective Date of service: 08/16/17 Principal diagnosis: Hypertensive Emergency; ESRD on Dialysis Interval history: Patient is resting in bed comfortably. He denies chest pain and shortness of breath. BP is currently 161/101. Objective Vital Signs Temp Pulse Pulse Resp BP BP Pulse Ox 08/16/17 08:37 20 08/16/17 07:00 98.5 F 100 H 19 166/105 95 08/16/17 06:51 186/105 08/16/17 06:00 99.3 F 20 186/103 08/15/17 19:43 98.7 F 101 H 16 164/100 100 08/15/17 18:31 93 H 16 156/96 94 08/15/17 18:20 94 H 14 188/92 91 08/15/17 18:10 97 H 14 184/104 90 08/15/17 18:00 98 H 15 202/110 94 08/15/17 17:53 111 H 203/120 08/15/17 17:51 111 H 14 203/120 95 08/15/17 17:41 105 H 11 L 156/94 91 08/15/17 17:31 107 H 14 214/110 95 08/15/17 17:20 106 H 13 156/94 95 08/15/17 17:10 103 H 10 L 156/94 94 08/15/17 17:00 97 H 10 L 156/94 89 08/15/17 16:50 92 H 11 L 142/86 93 08/15/17 16:40 91 H 11 L 142/86 91 08/15/17 16:30 97.8 F 95 H 10 L 142/86 91 08/15/17 16:20 95 H 11 L 146/88 90 08/15/17 16:10 97 H 11 L 146/88 89 08/15/17 16:00 99 H 10 L 146/88 90 08/15/17 15:50 100 H 9 L 150/85 91 08/15/17 15:40 106 H 13 150/85 89 08/15/17 15:30 100 H 11 L 150/85 89 08/15/17 15:20 97 H 13 184/104 91 08/15/17 15:10 101 H 11 L 184/104 89 08/15/17 15:00 104 H 11 L 184/104 88 08/15/17 14:50 111 H 16 176/94 96 08/15/17 14:49 176/94 08/15/17 14:40 109 H 12 176/94 96 08/15/17 14:30 110 H 12 176/94 96 08/15/17 14:20 107 H 13 198/103 94 08/15/17 14:10 113 H 12 202/106 96 08/15/17 14:00 112 H 15 167/93 95 08/15/17 13:50 105 H 14 167/93 90 08/15/17 13:40 102 H 11 L 167/93 92 08/15/17 13:30 99 H 13 167/93 92 08/15/17 13:20 104 H 9 L 191/112 95 08/15/17 13:10 106 H 13 191/112 95 08/15/17 13:00 98.6 F 102 H 11 L 191/112 93 08/15/17 12:50 94 H 13 150/93 92 08/15/17 12:40 95 H 11 L 150/93 88 08/15/17 12:30 94 H 12 150/93 90 08/15/17 12:20 95 H 9 L 170/98 93 08/15/17 12:10 100 H 16 170/98 87 08/15/17 12:00 100 H 10 L 170/98 92 08/15/17 11:50 99 H 11 L 166/100 91 08/15/17 11:40 98 H 11 L 166/100 90 08/15/17 11:30 100 H 11 L 166/100 93 08/15/17 11:20 99 H 11 L 154/84 90 08/15/17 11:10 97 H 11 L 154/84 92 08/15/17 11:00 100 H 12 154/84 91 08/15/17 10:50 104 H 12 135/80 94 08/15/17 10:40 96 H 10 L 135/80 91 08/15/17 10:30 98 H 10 L 135/80 91 08/15/17 10:20 99 H 11 L 175/99 91 08/15/17 10:10 104 H 10 L 175/99 98 08/15/17 10:00 103 H 14 175/99 99 08/15/17 09:50 94 H 11 L 124/74 98 08/15/17 09:40 94 H 12 124/74 96 - Physical Examination General: No Apparent Distress HEENT: Positive: PERRL Neck: Positive: neck supple Cardiac: Positive: Reg Rate and Rhythm Neuro: Positive: Grossly Intact Abdomen: Positive: Soft Skin: Positive: Clear Extremities: Absent: edema - Labs and Meds CBC 08/16/17 Range/Units 07:21 WBC 19.4 H (4.5-11.0) K/mm3 RBC 4.69 (3.65-5.03) M/mm3 Hgb 12.9 (11.8-15.2) gm/dl Hct 42.3 (35.5-45.6) % Plt Count 145 (140-440) K/mm3 Comprehensive Metabolic Panel 08/15/17 08/15/17 08/16/17 Range/Units 09:46 14:28 07:21 Sodium TNR 141 D 143 Potassium TNR 4.3 4.5 Chloride 98.7 99.5 93.8 L (98-107) mmol/L Carbon Dioxide TNR 17 L D 22 BUN 24 H 39 H 57 H (9-20) mg/dL Creatinine 5.0 H 8.2 H D 10.4 H (0.8-1.5) mg/dL Glucose TNR 300 H 342 H Calcium TNR 9.3 9.2 - Allied health notes Allied health notes reviewed: nursing
[2017-08-16] MEDS ORDERED: NACL 0.9% 100 ML IV PRN (10:00)
[2017-08-16] MEDS ORDERED: APRESOLINE IV PRN (10:00)
[2017-08-16] MEDS: NORVASC PO SCH (10:08)
[2017-08-16] MEDS: PROTONIX PO SCH (10:15)
[2017-08-16] MEDS: NOVOLOG SUB-Q SCH ×5 (10:15→22:34)
[2017-08-16] MEDS: HEPARIN SUB-Q SCH ×2 (10:17→22:36)
--- NOTE | 2017-08-16 13:46 | Progress Note ---
Assessment and Plan Assessment and plan: This is a 36-year-old man history end-stage renal disease on hemodialysis Tuesday, hypertension and diabetes mellitus type 2 on insulin who presents with chest pain. Found to have uncontrolled blood sugars but his VbG was 7.579 and he was started on insulin drip, admitted to the ICU on Cardene drip. -Malignant hypertension: Cardene weaned off, use IV when necessary labetalol instead of hydralazine due to tachycardia, pt wishes to restart home clonidine -ESRD: needing hemodialysis, renal is following -HONK not DKA: stop insulin drip, increase Levemir -Uncontrolled type 2 diabetes mellitus on insulin, A1c of 10.1 which is indicative of poorly controlled diabetes mellitus: Counseling on compliance done -DVT prophylaxis: add sq heparin full code Disposition: continue inpatient care, anticipate discharge tomorrow if bp is improved. History Interval history: Patient was seen and examined. Follow-up on current diagnosis/blood pressure. Overnight uneventful. Patient denies any chest pain, shortness breath, nausea/ vomiting or severe headaches. Imaging, nursing note, chart, labs and old chart reviewed. Discussed with patient. Hospitalist Physical - Physical exam Narrative exam: GEN: WDWN, NAD, AWAKE, ALERT, ORIENTATED 3 HEENT: NCAT, EOMI, PERRL, OP Clear NECK: supple, no adenopathy, no thyromegaly, no JVD CVS/HEART: RRR, NORMAL S1S2, NO JVD, pulses present bilaterally CHEST/LUNGS: CTA B, Symmetrical chest expansion, good air entry bilaterally GI/Abdomen: soft, NTND, good bowel sounds, no guarding or rebound /Bladder: no suprapubic tenderness, no CVA or paraspinal tenderness EXT/Skin: no c/c/e, no significant edema or obvious rash MSK: FROM x 4 Neuro: CN 2-12 grossly intact, no new focal deficits Psych: calm - Constitutional Vitals: Temp Pulse Resp BP Pulse Ox 99 F 103 H 18 118/85 95 08/16/17 10:35 08/16/17 13:15 08/16/17 10:35 08/16/17 13:15 08/16/17 07:00 General appearance: Present: no acute distress Results - Labs CBC & Chem 7: 08/16/17 07:21 08/16/17 07:21 Labs: Laboratory Last Values WBC 19.4 K/mm3 (4.5-11.0) H 08/16/17 07:21 RBC 4.69 M/mm3 (3.65-5.03) 08/16/17 07:21 Hgb 12.9 gm/dl (11.8-15.2) 08/16/17 07:21 Hct 42.3 % (35.5-45.6) 08/16/17 07:21 MCV 90 fl (84-94) 08/16/17 07:21 MCH 28 pg (28-32) 08/16/17 07:21 MCHC 31 % (32-34) L 08/16/17 07:21 RDW 16.2 % (13.2-15.2) H 08/16/17 07:21 Plt Count 145 K/mm3 (140-440) 08/16/17 07:21 Lymph % (Auto) 5.7 % (13.4-35.0) L 08/14/17 08:45 [place] % (Auto) 7.1 % (0.0-7.3) 08/14/17 08:45 Eos % (Auto) 0.0 % (0.0-4.3) 08/14/17 08:45 Baso % (Auto) 0.2 % (0.0-1.8) 08/14/17 08:45 Lymph # 0.9 K/mm3 (1.2-5.4) L 08/14/17 08:45 [place] # 1.1 K/mm3 (0.0-0.8) H 08/14/17 08:45 Eos # 0.0 K/mm3 (0.0-0.4) 08/14/17 08:45 Baso # 0.0 K/mm3 (0.0-0.1) 08/14/17 08:45 Add Manual Diff Complete 08/15/17 05:38 Total Counted 100 08/15/17 05:38 Seg Neutrophils % 87.0 % (40.0-70.0) H 08/14/17 08:45 Seg Neuts % (Manual) 83.0 % (40.0-70.0) H 08/15/17 05:38 Band Neutrophils % 0 % 08/15/17 05:38 Lymphocytes % (Manual) 11.0 % (13.4-35.0) L 08/15/17 05:38 Reactive Lymphs % (Man) 0 % 08/15/17 05:38 Monocytes % (Manual) 6.0 % (0.0-7.3) 08/15/17 05:38 Eosinophils % (Manual) 0 % (0.0-4.3) 08/15/17 05:38 Metamyelocytes % 0 % 08/15/17 05:38 Myelocytes % 0 % 08/15/17 05:38 Promyelocytes % 0 % 08/15/17 05:38 Blast Cells % 0 % 08/15/17 05:38 Nucleated RBC % Not Reportable 08/15/17 05:38 Seg Neutrophils # 13.4 K/mm3 (1.8-7.7) H 08/14/17 08:45 Seg Neutrophils # Man 19.6 K/mm3 (1.8-7.7) H 08/15/17 05:38 Band Neutrophils # 0.0 K/mm3 08/15/17 05:38 Lymphocytes # (Manual) 2.6 K/mm3 (1.2-5.4) 08/15/17 05:38 Abs React Lymphs (Man) 0.0 K/mm3 08/15/17 05:38 Monocytes # (Manual) 1.4 K/mm3 (0.0-0.8) H 08/15/17 05:38 Eosinophils # (Manual) 0.0 K/mm3 (0.0-0.4) 08/15/17 05:38 Basophils # (Manual) 0.0 K/mm3 (0.0-0.1) 08/15/17 05:38 Metamyelocytes # 0.0 K/mm3 08/15/17 05:38 Myelocytes # 0.0 K/mm3 08/15/17 05:38 Promyelocytes # 0.0 K/mm3 08/15/17 05:38 Blast Cells # 0.0 K/mm3 08/15/17 05:38 WBC Morphology Not Reportable 08/15/17 05:38 Hypersegmented Neuts Not Reportable 08/15/17 05:38 Hyposegmented Neuts Not Reportable 08/15/17 05:38 Hypogranular Neuts Not Reportable 08/15/17 05:38 Smudge Cells Not Reportable 08/15/17 05:38 Toxic Granulation Not Reportable 08/15/17 05:38 Toxic Vacuolation Not Reportable 08/15/17 05:38 Dohle Bodies Not Reportable 08/15/17 05:38 Pelger-Huet Anomaly Not Reportable 08/15/17 05:38 Kate Rods Not Reportable 08/15/17 05:38 Platelet Estimate Consistent w auto 08/15/17 05:38 Clumped Platelets Not Reportable 08/15/17 05:38 Plt Clumps, EDTA Not Reportable 08/15/17 05:38 Large Platelets Not Reportable 08/15/17 05:38 Giant Platelets Not Reportable 08/15/17 05:38 Platelet Satelliting Not Reportable 08/15/17 05:38 Plt Morphology Comment Not Reportable 08/15/17 05:38 RBC Morphology Normal 08/15/17 05:38 Dimorphic RBCs Not Reportable 08/15/17 05:38 Polychromasia Not Reportable 08/15/17 05:38 Hypochromasia Not Reportable 08/15/17 05:38 Poikilocytosis Not Reportable 08/15/17 05:38 Anisocytosis Not Reportable 08/15/17 05:38 Microcytosis Not Reportable 08/15/17 05:38 Macrocytosis Not Reportable 08/15/17 05:38 Spherocytes Not Reportable 08/15/17 05:38 Pappenheimer Bodies Not Reportable 08/15/17 05:38 Sickle Cells Not Reportable 08/15/17 05:38 Target Cells Not Reportable 08/15/17 05:38 Tear Drop Cells Not Reportable 08/15/17 05:38 Ovalocytes Not Reportable 08/15/17 05:38 Helmet Cells Not Reportable 08/15/17 05:38 Bustos-[place] Bodies Not Reportable 08/15/17 05:38 [place] Rings Not Reportable 08/15/17 05:38 [place] Cells Not Reportable 08/15/17 05:38 Bite Cells Not Reportable 08/15/17 05:38 Crenated Cell Not Reportable 08/15/17 05:38 Elliptocytes Not Reportable 08/15/17 05:38 Acanthocytes (Spur) Not Reportable 08/15/17 05:38 Rouleaux Not Reportable 08/15/17 05:38 Hemoglobin C Crystals Not Reportable 08/15/17 05:38 Schistocytes Not Reportable 08/15/17 05:38 Malaria parasites Not Reportable 08/15/17 05:38 Fredi Bodies Not Reportable 08/15/17 05:38 Hem Pathologist Commnt No 08/15/17 05:38 PT 15.5 Sec. (12.2-14.9) H 08/14/17 08:45 INR 1.17 (0.87-1.13) H 08/14/17 08:45 VBG pH 7.519 (7.320-7.420) H 08/14/17 08:45 Sodium 143 mmol/L (137-145) 08/16/17 07:21 Potassium 4.5 mmol/L (3.6-5.0) 08/16/17 07:21 Chloride 93.8 mmol/L (98-107) L 08/16/17 07:21 Carbon Dioxide 22 mmol/L (22-30) 08/16/17 07:21 Anion Gap 32 mmol/L 08/16/17 07:21 BUN 57 mg/dL (9-20) H 08/16/17 07:21 Creatinine 10.4 mg/dL (0.8-1.5) H 08/16/17 07:21 Estimated GFR 7 ml/min 08/16/17 07:21 BUN/Creatinine Ratio 5 % 08/16/17 07:21 Glucose 342 mg/dL (75-100) H 08/16/17 07:21 POC Glucose 287 (70-105) H 08/16/17 05:22 Hemoglobin A1c 10.7 % (4-6) H 08/15/17 05:38 Lactic Acid 1.20 mmol/L (0.7-2.0) 08/15/17 05:38 Calcium 9.2 mg/dL (8.4-10.2) 08/16/17 07:21 Phosphorus 3.80 mg/dL (2.5-4.5) 08/14/17 09:52 Magnesium 2.30 mg/dL (1.7-2.3) 08/16/17 07:21 Total Bilirubin 0.40 mg/dL (0.1-1.2) 08/14/17 08:45 AST 15 units/L (5-40) 08/14/17 08:45 ALT < 5 units/L (7-56) L 08/14/17 08:45 Alkaline Phosphatase 94 units/L (35-129) 08/14/17 08:45 Total Creatine Kinase 715 units/L (55-170) H 08/14/17 09:52 Troponin T 0.478 ng/mL (0.00-0.029) H* 08/14/17 19:00 C-Reactive Protein 2.40 mg/dL (0.00-1.30) H 08/14/17 11:32 NT-Pro-B Natriuret Pep 6335 pg/mL (0-450) H 08/14/17 11:32 Total Protein 8.1 g/dL (6.3-8.2) 08/14/17 08:45 Albumin 4.2 g/dL (3.9-5) 08/14/17 08:45 Albumin/Globulin Ratio 1.1 % 08/14/17 08:45 Triglycerides 243 mg/dL (2-149) H 08/14/17 08:45 Cholesterol 180 mg/dL (50-199) 08/14/17 08:45 LDL Cholesterol Direct 83 mg/dL (50-130) 08/14/17 08:45 HDL Cholesterol 49 mg/dL (40-59) 08/14/17 08:45 Cholesterol/HDL Ratio 3.67 % 08/14/17 08:45
[2017-08-16] MEDS ORDERED: HEPARIN SUB-Q SCH (14:42)
[2017-08-16] MEDS ORDERED: NACL 0.9 (PRIMING MACHINE ONLY DIALYSIS) MC ONE (14:49)
[2017-08-16] MEDS: CATAPRES PO SCH ×2 (16:00→22:36)
[2017-08-16] MEDS: LEVAQUIN 500MG/100ML 500 MG/100 ML BAG IV SCH (16:04)
--- NOTE | 2017-08-16 19:35 | Progress Note ---
Assessment and Plan Patient resting on room air.No complaint of shortness of breath.But complaing chest wall pain on right side.Denies cough or fever.O2 saturation 98% on room air. Patient has Angio CT of chest. No pulmonary emboli reported. - Patient Problems (1) DKA (diabetic ketoacidoses) Current Visit: Yes Status: Acute Qualifiers: Diabetes mellitus type: D Diabetes mellitus complication detail: D Plan to address problem: Improving. Management as per primary care. (2) Hypertensive emergency Current Visit: Yes Status: Acute Plan to address problem: Management as per primary care. (3) ESRD (end stage renal disease) Current Visit: Yes Status: Chronic Plan to address problem: Management as per nephrology. (4) Anterior chest wall pain Current Visit: No Status: Acute Plan to address problem: Pain medication as needed. Subjective Date of service: 08/16/17 Principal diagnosis: Hypertensive Emergency; ESRD on Dialysis Interval history: Patient resting on room air.No complaint of shortness of breath.But complaing chest wall pain on right side.Denies cough or fever.O2 saturation 98% on room air. Patient has Angio CT of chest. No pulmonary emboli reported. Objective Vital Signs - 12hr 08/16/17 08/16/17 08/16/17 08:37 09:07 10:35 Temperature 99 F Pulse Rate 103 H Respiratory 20 18 18 Rate Blood Pressure 182/112 O2 Sat by Pulse Oximetry 08/16/17 08/16/17 08/16/17 10:45 11:00 11:15 Temperature Pulse Rate 108 H 109 H 105 H Respiratory Rate Blood Pressure 161/101 150/98 134/92 O2 Sat by Pulse Oximetry 08/16/17 08/16/17 08/16/17 11:30 11:45 12:00 Temperature Pulse Rate 110 H 110 H 111 H Respiratory Rate Blood Pressure 125/89 108/77 108/78 O2 Sat by Pulse Oximetry 08/16/17 08/16/17 08/16/17 12:15 12:30 12:45 Temperature Pulse Rate 111 H 107 H 104 H Respiratory Rate Blood Pressure 103/73 100/74 109/76 O2 Sat by Pulse Oximetry 08/16/17 08/16/17 08/16/17 13:00 13:15 13:30 Temperature Pulse Rate 101 H 103 H 103 H Respiratory Rate Blood Pressure 116/82 118/85 120/83 O2 Sat by Pulse Oximetry 08/16/17 08/16/17 08/16/17 13:45 14:00 14:10 Temperature Pulse Rate 103 H 107 H 113 H Respiratory Rate Blood Pressure 123/86 125/86 119/82 O2 Sat by Pulse Oximetry 08/16/17 08/16/17 08/16/17 14:40 16:00 16:22 Temperature 98.9 F 99.1 F Pulse Rate 103 H 110 H Respiratory 18 20 20 Rate Blood Pressure 134/85 150/91 O2 Sat by Pulse 96 Oximetry 08/16/17 08/16/17 16:30 19:31 Temperature 98.7 F Pulse Rate 103 H Respiratory 18 14 Rate Blood Pressure 136/85 O2 Sat by Pulse 98 Oximetry Constitutional: no acute distress, alert Eyes: non-icteric ENT: oropharynx moist Neck: supple, no lymphadenopathy, no JVD, other (no organomegaly) Effort: normal Ascultation: Bilateral: clear Percussion: Bilateral: not dull Cardiovascular: regular rate and rhythm, other (no rubs or murmurs) Gastrointestinal: hypoactive bowel sounds, soft, tender (mild; diffusely; no hepatosplenomegaly) Integumentary: normal, other (no erhythema or cellulitis) Extremities: no cyanosis, no edema, pulses normal, no ischemia or petechiae Neurologic: normal mental status, non-focal exam, pupils equal and round, motor strength normal and Psychiatric: anxious, depressed CBC and BMP: 08/16/17 07:21 08/16/17 07:21 ABG, PT/INR, D-dimer: PT/INR, D-dimer PT 15.5 Sec. (12.2-14.9) H 08/14/17 08:45 INR 1.17 (0.87-1.13) H 08/14/17 08:45 Abnormal lab findings: Abnormal Labs 08/14/17 08/14/17 08/14/17 11:06 11:32 11:32 WBC MCHC RDW Seg Neuts % (Manual) Lymphocytes % (Manual) Seg Neutrophils # Man Monocytes # (Manual) Sodium Potassium 5.4 H Chloride Carbon Dioxide 18 L BUN 46 H Creatinine 6.7 H Glucose 503 H* POC Glucose > 500 H Hemoglobin A1c Lactic Acid Calcium 7.3 L Troponin T C-Reactive Protein 2.40 H NT-Pro-B Natriuret Pep 08/14/17 08/14/17 08/14/17 11:32 12:19 13:29 WBC MCHC RDW Seg Neuts % (Manual) Lymphocytes % (Manual) Seg Neutrophils # Man Monocytes # (Manual) Sodium Potassium Chloride Carbon Dioxide BUN Creatinine Glucose POC Glucose 391 H 358 H Hemoglobin A1c Lactic Acid Calcium Troponin T C-Reactive Protein NT-Pro-B Natriuret Pep 6335 H 08/14/17 08/14/17 08/14/17 14:20 14:20 14:20 WBC MCHC RDW Seg Neuts % (Manual) Lymphocytes % (Manual) Seg Neutrophils # Man Monocytes # (Manual) Sodium Potassium 3.5 L D Chloride Carbon Dioxide BUN 53 H Creatinine 8.1 H Glucose 390 H POC Glucose Hemoglobin A1c Lactic Acid 2.20 H* Calcium Troponin T 0.440 H* C-Reactive Protein NT-Pro-B Natriuret Pep 08/14/17 08/14/17 08/14/17 14:53 16:28 18:31 WBC MCHC RDW Seg Neuts % (Manual) Lymphocytes % (Manual) Seg Neutrophils # Man Monocytes # (Manual) Sodium 131 L D Potassium 2.9 L* Chloride 90.5 L Carbon Dioxide 21 L BUN 47 H Creatinine 7.8 H Glucose 739 H* POC Glucose 383 H 218 H Hemoglobin A1c Lactic Acid Calcium 7.9 L Troponin T C-Reactive Protein NT-Pro-B Natriuret Pep 08/14/17 08/14/17 08/14/17 19:00 19:00 19:18 WBC MCHC RDW Seg Neuts % (Manual) Lymphocytes % (Manual) Seg Neutrophils # Man Monocytes # (Manual) Sodium 147 H D Potassium 3.5 L D Chloride Carbon Dioxide BUN 23 H Creatinine 4.0 H Glucose 187 H POC Glucose 169 H Hemoglobin A1c Lactic Acid Calcium 10.7 H D Troponin T 0.478 H* C-Reactive Protein NT-Pro-B Natriuret Pep 08/14/17 08/14/17 08/14/17 20:20 20:59 21:36 WBC MCHC RDW Seg Neuts % (Manual) Lymphocytes % (Manual) Seg Neutrophils # Man Monocytes # (Manual) Sodium 146 H Potassium Chloride Carbon Dioxide BUN 26 H Creatinine 5.1 H Glucose 254 H POC Glucose 224 H 227 H Hemoglobin A1c Lactic Acid Calcium Troponin T C-Reactive Protein NT-Pro-B Natriuret Pep 08/14/17 08/14/17 08/15/17 22:19 23:04 00:18 WBC MCHC RDW Seg Neuts % (Manual) Lymphocytes % (Manual) Seg Neutrophils # Man Monocytes # (Manual) Sodium Potassium Chloride Carbon Dioxide BUN Creatinine Glucose POC Glucose 217 H 227 H 205 H Hemoglobin A1c Lactic Acid Calcium Troponin T C-Reactive Protein NT-Pro-B Natriuret Pep 08/15/17 08/15/17 08/15/17 01:13 02:09 03:08 WBC MCHC RDW Seg Neuts % (Manual) Lymphocytes % (Manual) Seg Neutrophils # Man Monocytes # (Manual) Sodium Potassium Chloride Carbon Dioxide BUN Creatinine Glucose POC Glucose 224 H 193 H 212 H Hemoglobin A1c Lactic Acid Calcium Troponin T C-Reactive Protein NT-Pro-B Natriuret Pep 08/15/17 08/15/17 08/15/17 03:59 05:10 05:38 WBC MCHC RDW Seg Neuts % (Manual) Lymphocytes % (Manual) Seg Neutrophils # Man Monocytes # (Manual) Sodium Potassium Chloride Carbon Dioxide BUN Creatinine Glucose POC Glucose 193 H 161 H Hemoglobin A1c 10.7 H Lactic Acid Calcium Troponin T C-Reactive Protein NT-Pro-B Natriuret Pep 08/15/17 08/15/17 08/15/17 05:38 05:38 06:03 WBC 23.6 H MCHC RDW 16.1 H Seg Neuts % (Manual) 83.0 H Lymphocytes % (Manual) 11.0 L Seg Neutrophils # Man 19.6 H Monocytes # (Manual) 1.4 H Sodium 149 H Potassium Chloride Carbon Dioxide BUN 31 H Creatinine 7.4 H Glucose 137 H POC Glucose 168 H Hemoglobin A1c Lactic Acid Calcium Troponin T C-Reactive Protein NT-Pro-B Natriuret Pep 08/15/17 08/15/17 08/15/17 07:55 09:38 09:46 WBC MCHC RDW Seg Neuts % (Manual) Lymphocytes % (Manual) Seg Neutrophils # Man Monocytes # (Manual) Sodium Potassium Chloride Carbon Dioxide BUN 24 H Creatinine 5.0 H Glucose POC Glucose 196 H 231 H Hemoglobin A1c Lactic Acid Calcium Troponin T C-Reactive Protein NT-Pro-B Natriuret Pep 08/15/17 08/15/17 08/15/17 12:03 14:28 15:44 WBC MCHC RDW Seg Neuts % (Manual) Lymphocytes % (Manual) Seg Neutrophils # Man Monocytes # (Manual) Sodium Potassium Chloride Carbon Dioxide 17 L D BUN 39 H Creatinine 8.2 H D Glucose 300 H POC Glucose 165 H 370 H Hemoglobin A1c Lactic Acid Calcium Troponin T C-Reactive Protein NT-Pro-B Natriuret Pep 08/15/17 08/16/17 08/16/17 21:33 05:22 07:21 WBC 19.4 H MCHC 31 L RDW 16.2 H Seg Neuts % (Manual) Lymphocytes % (Manual) Seg Neutrophils # Man Monocytes # (Manual) Sodium Potassium Chloride Carbon Dioxide BUN Creatinine Glucose POC Glucose 275 H 287 H Hemoglobin A1c Lactic Acid Calcium Troponin T C-Reactive Protein NT-Pro-B Natriuret Pep 08/16/17 08/16/17 07:21 16:27 WBC MCHC RDW Seg Neuts % (Manual) Lymphocytes % (Manual) Seg Neutrophils # Man Monocytes # (Manual) Sodium Potassium Chloride 93.8 L Carbon Dioxide BUN 57 H Creatinine 10.4 H Glucose 342 H POC Glucose 290 H Hemoglobin A1c Lactic Acid Calcium Troponin T C-Reactive Protein NT-Pro-B Natriuret Pep Chest x-ray: report reviewed (Unremarkable AP chest.) CT scan - chest: report reviewed (No PE.), image reviewed Allied health notes reviewed: nursing
[2017-08-17] MEDS: DILAUDID IV PRN ×3 (03:50→14:18)
[2017-08-17 05:30] LABS: Hematocrit 39.3 % (35.5-45.6); Hemoglobin 12.4 gm/dl (11.8-15.2); Mean Corpuscular HGB Conc 32 % (32-34); Mean Corpuscular Hemoglobin 28 pg (28-32); Mean Corpuscular Volume 89 fl (84-94); Platelet Count 114 K/mm3 (140-440); Red Cell Distribution Width 15.6 % (13.2-15.2); White Blood Count 14.4 K/mm3 (4.5-11.0)
[2017-08-17 05:55] LABS: Calcium 8.3 mg/dL (8.4-10.2); Chloride 88.9 mmol/L (98-107); Potassium 4.1 mmol/L (3.6-5.0)
[2017-08-17] MEDS: NOVOLOG SUB-Q SCH ×4 (07:30→21:49)
--- NOTE | 2017-08-17 08:38 | Progress Note ---
Assessment and Plan Impression * Diabetic ketoacidosis * Accelerated hypertension * End-stage renal disease. On maintenance hemodialysis * Anemia secondary to ESRD * Lactic acidosis. Rule out underlying sepsis Recommendations * Continue HD TTS * UF as tolerated * Tight glycemic control per primary team * Avoid nephrotoxins * His outpatient days are Mondays, Wednesdays and Fridays - resume schedule when closer to d/c Subjective Date of service: 08/17/17 Principal diagnosis: Hypertensive Emergency; ESRD on Dialysis Interval history: Patient has no complaints today. Objective - Vital Signs Vital signs: Vital Signs - 12hr 08/16/17 08/16/17 08/17/17 22:36 23:26 03:50 Temperature 99.5 F Pulse Rate 102 H 88 Respiratory 14 Rate Blood Pressure 136/85 116/75 O2 Sat by Pulse 87 94 Oximetry 08/17/17 08/17/17 03:51 07:39 Temperature 98.2 F Pulse Rate 95 H Respiratory 28 H 19 Rate Blood Pressure 151/98 O2 Sat by Pulse 98 96 Oximetry - General Appearance General appearance: well-developed, well-nourished EENT: ATNC Respiratory: Present: Clear to Ascultation Cardiology: regular, S1S2 Gastrointestinal: normal, no tenderness, no distended Musculoskeletal: other (no edema) Psychiatric: cooperative - Lab 08/17/17 04:30 08/17/17 04:30 Most recent lab results Calcium 8.3 mg/dL (8.4-10.2) L 08/17/17 04:30 Phosphorus 3.80 mg/dL (2.5-4.5) 08/14/17 09:52 Magnesium 2.30 mg/dL (1.7-2.3) 08/16/17 07:21
[2017-08-17] MEDS: LEVEMIR SUB-Q SCH (09:03)
[2017-08-17] MEDS: PROTONIX PO SCH (09:04)
[2017-08-17] MEDS: CATAPRES PO SCH ×2 (09:04→23:40)
[2017-08-17] MEDS: PROCARDIA XL PO SCH (09:05)
[2017-08-17] MEDS: HEPARIN SUB-Q SCH ×2 (10:00→23:39)
[2017-08-17 11:44] LABS: ABG Base Excess -0.7 mmol/L (-2.0-3.0); ABG HCO3 24.9 mmol/L (20.0-26.0); ABG Oxygen Saturation 93.5 % (95.0-99.0); ABG PCO2 44.6 mm Hg; ABG PH 7.364 pH Units (7.350-7.450); ABG PO2 70.3 mm Hg (80.0-90.0)
--- NOTE | 2017-08-17 13:51 | Progress Note ---
Assessment and Plan Assessment and plan: This is a 36-year-old man history end-stage renal disease on hemodialysis Tuesday, hypertension and diabetes mellitus type 2 on insulin who presents with chest pain. Found to have uncontrolled blood sugars but his VbG was 7.579 and he was started on insulin drip, admitted to the ICU on Cardene drip. -Malignant hypertension: Cardene weaned off, use IV when necessary labetalol instead of hydralazine due to tachycardia, pt wishes to restart home clonidine -ESRD: needing hemodialysis, renal is following -HONK not DKA: stop insulin drip, increase Levemir -Uncontrolled type 2 diabetes mellitus on insulin, A1c of 10.1 which is indicative of poorly controlled diabetes mellitus: Counseling on compliance done -DVT prophylaxis: add sq heparin full code Disposition: continue inpatient care, bp improved but pt is not eating due to severe constant nausea, ?gastroparesis. He saw Dr. Lee (GI) for this in the past, will consult him. Blood glucose elevated due to the fact that he is not on his home dose of 40 units of Levemir because he is not eating or drinking; therefore, will continue ssi. History Interval history: Patient was seen and examined. Follow-up on current diagnosis/blood pressure. Overnight uneventful. Patient denies any chest pain, shortness breath, nausea/ vomiting or severe headaches. Imaging, nursing note, chart, labs and old chart reviewed. Discussed with patient. Hospitalist Physical - Physical exam Narrative exam: GEN: WDWN, NAD, AWAKE, ALERT, ORIENTATED 3 HEENT: NCAT, EOMI, PERRL, OP Clear NECK: supple, no adenopathy, no thyromegaly, no JVD CVS/HEART: RRR, NORMAL S1S2, NO JVD, pulses present bilaterally CHEST/LUNGS: CTA B, Symmetrical chest expansion, good air entry bilaterally GI/Abdomen: soft, NTND, good bowel sounds, no guarding or rebound /Bladder: no suprapubic tenderness, no CVA or paraspinal tenderness EXT/Skin: no c/c/e, no significant edema or obvious rash MSK: FROM x 4 Neuro: CN 2-12 grossly intact, no new focal deficits Psych: calm - Constitutional Vitals: Temp Pulse Resp BP Pulse Ox 98.2 F 95 H 19 151/98 96 08/17/17 07:39 08/17/17 09:04 08/17/17 07:39 08/17/17 09:04 08/17/17 07:39 General appearance: Present: no acute distress Results - Labs CBC & Chem 7: 08/17/17 04:30 08/17/17 04:30 Labs: Laboratory Last Values WBC 14.4 K/mm3 (4.5-11.0) H 08/17/17 04:30 RBC 4.40 M/mm3 (3.65-5.03) 08/17/17 04:30 Hgb 12.4 gm/dl (11.8-15.2) 08/17/17 04:30 Hct 39.3 % (35.5-45.6) 08/17/17 04:30 MCV 89 fl (84-94) 08/17/17 04:30 MCH 28 pg (28-32) 08/17/17 04:30 MCHC 32 % (32-34) 08/17/17 04:30 RDW 15.6 % (13.2-15.2) H 08/17/17 04:30 Plt Count 114 K/mm3 (140-440) L 08/17/17 04:30 Lymph % (Auto) 5.7 % (13.4-35.0) L 08/14/17 08:45 Slope % (Auto) 7.1 % (0.0-7.3) 08/14/17 08:45 Eos % (Auto) 0.0 % (0.0-4.3) 08/14/17 08:45 Baso % (Auto) 0.2 % (0.0-1.8) 08/14/17 08:45 Lymph # 0.9 K/mm3 (1.2-5.4) L 08/14/17 08:45 Slope # 1.1 K/mm3 (0.0-0.8) H 08/14/17 08:45 Eos # 0.0 K/mm3 (0.0-0.4) 08/14/17 08:45 Baso # 0.0 K/mm3 (0.0-0.1) 08/14/17 08:45 Add Manual Diff Complete 08/15/17 05:38 Total Counted 100 08/15/17 05:38 Seg Neutrophils % 87.0 % (40.0-70.0) H 08/14/17 08:45 Seg Neuts % (Manual) 83.0 % (40.0-70.0) H 08/15/17 05:38 Band Neutrophils % 0 % 08/15/17 05:38 Lymphocytes % (Manual) 11.0 % (13.4-35.0) L 08/15/17 05:38 Reactive Lymphs % (Man) 0 % 08/15/17 05:38 Monocytes % (Manual) 6.0 % (0.0-7.3) 08/15/17 05:38 Eosinophils % (Manual) 0 % (0.0-4.3) 08/15/17 05:38 Metamyelocytes % 0 % 08/15/17 05:38 Myelocytes % 0 % 08/15/17 05:38 Promyelocytes % 0 % 08/15/17 05:38 Blast Cells % 0 % 08/15/17 05:38 Nucleated RBC % Not Reportable 08/15/17 05:38 Seg Neutrophils # 13.4 K/mm3 (1.8-7.7) H 08/14/17 08:45 Seg Neutrophils # Man 19.6 K/mm3 (1.8-7.7) H 08/15/17 05:38 Band Neutrophils # 0.0 K/mm3 08/15/17 05:38 Lymphocytes # (Manual) 2.6 K/mm3 (1.2-5.4) 08/15/17 05:38 Abs React Lymphs (Man) 0.0 K/mm3 08/15/17 05:38 Monocytes # (Manual) 1.4 K/mm3 (0.0-0.8) H 08/15/17 05:38 Eosinophils # (Manual) 0.0 K/mm3 (0.0-0.4) 08/15/17 05:38 Basophils # (Manual) 0.0 K/mm3 (0.0-0.1) 08/15/17 05:38 Metamyelocytes # 0.0 K/mm3 08/15/17 05:38 Myelocytes # 0.0 K/mm3 08/15/17 05:38 Promyelocytes # 0.0 K/mm3 08/15/17 05:38 Blast Cells # 0.0 K/mm3 08/15/17 05:38 WBC Morphology Not Reportable 08/15/17 05:38 Hypersegmented Neuts Not Reportable 08/15/17 05:38 Hyposegmented Neuts Not Reportable 08/15/17 05:38 Hypogranular Neuts Not Reportable 08/15/17 05:38 Smudge Cells Not Reportable 08/15/17 05:38 Toxic Granulation Not Reportable 08/15/17 05:38 Toxic Vacuolation Not Reportable 08/15/17 05:38 Dohle Bodies Not Reportable 08/15/17 05:38 Pelger-Huet Anomaly Not Reportable 08/15/17 05:38 Kate Rods Not Reportable 08/15/17 05:38 Platelet Estimate Consistent w auto 08/15/17 05:38 Clumped Platelets Not Reportable 08/15/17 05:38 Plt Clumps, EDTA Not Reportable 08/15/17 05:38 Large Platelets Not Reportable 08/15/17 05:38 Giant Platelets Not Reportable 08/15/17 05:38 Platelet Satelliting Not Reportable 08/15/17 05:38 Plt Morphology Comment Not Reportable 08/15/17 05:38 RBC Morphology Normal 08/15/17 05:38 Dimorphic RBCs Not Reportable 08/15/17 05:38 Polychromasia Not Reportable 08/15/17 05:38 Hypochromasia Not Reportable 08/15/17 05:38 Poikilocytosis Not Reportable 08/15/17 05:38 Anisocytosis Not Reportable 08/15/17 05:38 Microcytosis Not Reportable 08/15/17 05:38 Macrocytosis Not Reportable 08/15/17 05:38 Spherocytes Not Reportable 08/15/17 05:38 Pappenheimer Bodies Not Reportable 08/15/17 05:38 Sickle Cells Not Reportable 08/15/17 05:38 Target Cells Not Reportable 08/15/17 05:38 Tear Drop Cells Not Reportable 08/15/17 05:38 Ovalocytes Not Reportable 08/15/17 05:38 Helmet Cells Not Reportable 08/15/17 05:38 [place] Bodies Not Reportable 08/15/17 05:38 [place]om[place] Rings Not Reportable 08/15/17 05:38 Vicky Cells Not Reportable 08/15/17 05:38 Bite Cells Not Reportable 08/15/17 05:38 Crenated Cell Not Reportable 08/15/17 05:38 Elliptocytes Not Reportable 08/15/17 05:38 Acanthocytes (Spur) Not Reportable 08/15/17 05:38 Rouleaux Not Reportable 08/15/17 05:38 Hemoglobin C Crystals Not Reportable 08/15/17 05:38 Schistocytes Not Reportable 08/15/17 05:38 Malaria parasites Not Reportable 08/15/17 05:38 Fredi Bodies Not Reportable 08/15/17 05:38 Hem Pathologist Commnt No 08/15/17 05:38 PT 15.5 Sec. (12.2-14.9) H 08/14/17 08:45 INR 1.17 (0.87-1.13) H 08/14/17 08:45 ABG pH 7.364 pH Units (7.350-7.450) 08/17/17 10:11 ABG pCO2 44.6 mm Hg 08/17/17 10:11 ABG pO2 70.3 mm Hg (80.0-90.0) L 08/17/17 10:11 ABG HCO3 24.9 mmol/L (20.0-26.0) 08/17/17 10:11 ABG O2 Saturation 93.5 % (95.0-99.0) L 08/17/17 10:11 ABG O2 Content 15.6 (0.0-44) 08/17/17 10:11 ABG Base Excess -0.7 mmol/L (-2.0-3.0) 08/17/17 10:11 ABG Hemoglobin 12.3 gm/dl (14.0-18.0) L 08/17/17 10:11 ABG Carboxyhemoglobin 3.0 % (0.0-5.0) 08/17/17 10:11 ABG Methemoglobin 0.5 % (0.0-1.5) 08/17/17 10:11 VBG pH 7.519 (7.320-7.420) H 08/14/17 08:45 Oxyhemoglobin 90.2 % (95.0-99.0) L 08/17/17 10:11 FiO2 21 % 08/17/17 10:11 Sodium 137 mmol/L (137-145) 08/17/17 04:30 Potassium 4.1 mmol/L (3.6-5.0) 08/17/17 04:30 Chloride 88.9 mmol/L (98-107) L 08/17/17 04:30 Carbon Dioxide 24 mmol/L (22-30) 08/17/17 04:30 Anion Gap 28 mmol/L 08/17/17 04:30 BUN 41 mg/dL (9-20) H 08/17/17 04:30 Creatinine 8.1 mg/dL (0.8-1.5) H 08/17/17 04:30 Estimated GFR 9 ml/min 08/17/17 04:30 BUN/Creatinine Ratio 5 % 08/17/17 04:30 Glucose 267 mg/dL (75-100) H 08/17/17 04:30 POC Glucose 273 (70-105) H 08/17/17 05:38 Hemoglobin A1c 10.7 % (4-6) H 08/15/17 05:38 Lactic Acid 1.20 mmol/L (0.7-2.0) 08/15/17 05:38 Calcium 8.3 mg/dL (8.4-10.2) L 08/17/17 04:30 Phosphorus 3.80 mg/dL (2.5-4.5) 08/14/17 09:52 Magnesium 2.30 mg/dL (1.7-2.3) 08/16/17 07:21 Total Bilirubin 0.40 mg/dL (0.1-1.2) 08/14/17 08:45 AST 15 units/L (5-40) 08/14/17 08:45 ALT < 5 units/L (7-56) L 08/14/17 08:45 Alkaline Phosphatase 94 units/L (35-129) 08/14/17 08:45 Total Creatine Kinase 715 units/L (55-170) H 08/14/17 09:52 Troponin T 0.478 ng/mL (0.00-0.029) H* 08/14/17 19:00 C-Reactive Protein 2.40 mg/dL (0.00-1.30) H 08/14/17 11:32 NT-Pro-B Natriuret Pep 6335 pg/mL (0-450) H 08/14/17 11:32 Total Protein 8.1 g/dL (6.3-8.2) 08/14/17 08:45 Albumin 4.2 g/dL (3.9-5) 08/14/17 08:45 Albumin/Globulin Ratio 1.1 % 08/14/17 08:45 Triglycerides 243 mg/dL (2-149) H 08/14/17 08:45 Cholesterol 180 mg/dL (50-199) 08/14/17 08:45 LDL Cholesterol Direct 83 mg/dL (50-130) 08/14/17 08:45 HDL Cholesterol 49 mg/dL (40-59) 08/14/17 08:45 Cholesterol/HDL Ratio 3.67 % 08/14/17 08:45
--- NOTE | 2017-08-17 14:30 | Progress Note ---
Assessment and Plan Severe gastroparesis Hypertension DKA Chronic elevated troponin LHC 04/2015- non obstructive CAD echo 04/2015- moderate LVH, normal EF ESRD on HD Conservative cardiac management. Subjective Date of service: 08/17/17 Principal diagnosis: Hypertensive Emergency; ESRD on Dialysis Interval history: Patient denies chest pain and shortness of breath. Objective Vital Signs Temp Pulse Resp BP Pulse Ox 08/17/17 09:04 95 H 151/98 08/17/17 07:39 98.2 F 95 H 19 151/98 96 08/17/17 03:51 28 H 98 08/17/17 03:50 88 94 08/16/17 23:26 99.5 F 102 H 14 116/75 87 08/16/17 22:36 136/85 08/16/17 19:31 98.7 F 103 H 14 136/85 98 08/16/17 16:30 18 08/16/17 16:22 99.1 F 110 H 20 150/91 96 08/16/17 16:00 20 08/16/17 14:40 98.9 F 103 H 18 134/85 - Physical Examination General: No Apparent Distress HEENT: Positive: PERRL Cardiac: Positive: Reg Rate and Rhythm - Labs and Meds CBC 08/17/17 Range/Units 04:30 WBC 14.4 H (4.5-11.0) K/mm3 RBC 4.40 (3.65-5.03) M/mm3 Hgb 12.4 (11.8-15.2) gm/dl Hct 39.3 (35.5-45.6) % Plt Count 114 L (140-440) K/mm3 Comprehensive Metabolic Panel 08/17/17 Range/Units 04:30 Sodium 137 (137-145) mmol/L Potassium 4.1 (3.6-5.0) mmol/L Chloride 88.9 L (98-107) mmol/L Carbon Dioxide 24 (22-30) mmol/L BUN 41 H (9-20) mg/dL Creatinine 8.1 H (0.8-1.5) mg/dL Glucose 267 H (75-100) mg/dL Calcium 8.3 L (8.4-10.2) mg/dL - Allied health notes Allied health notes reviewed: nursing
[2017-08-17] MEDS ORDERED: REGLAN IV PRN (14:35)
--- NOTE | 2017-08-17 15:17 | Progress Note ---
Assessment and Plan Patient resting on room air.No complaint of shortness of breath.But complaing chest wall pain on right side.Denies cough or fever.O2 saturation 96% on room air.Not much change in the condition compare to yesterday. Patient has Angio CT of chest. No pulmonary emboli reported. - Patient Problems (1) DKA (diabetic ketoacidoses) Current Visit: Yes Status: Acute Qualifiers: Diabetes mellitus type: D Diabetes mellitus complication detail: D Plan to address problem: Improving. HCO3 is 24. Management as per primary care. (2) Hypertensive emergency Current Visit: Yes Status: Acute Plan to address problem: Management as per primary care. (3) ESRD (end stage renal disease) Current Visit: Yes Status: Chronic Plan to address problem: Management as per nephrology. (4) Anterior chest wall pain Current Visit: No Status: Acute Plan to address problem: Pain medication as needed. Subjective Date of service: 08/17/17 Principal diagnosis: Hypertensive Emergency; ESRD on Dialysis Interval history: Patient resting on room air.No complaint of shortness of breath.But complaining chest wall pain on right side.Denies cough or fever.O2 saturation 96% on room air. Not much shepard in the condition compare to yesterday. Patient has Angio CT of chest. No pulmonary emboli reported. Objective Vital Signs - 12hr 08/17/17 08/17/17 08/17/17 03:50 03:51 07:39 Temperature 98.2 F Pulse Rate 88 95 H Respiratory 28 H 19 Rate Blood Pressure 151/98 O2 Sat by Pulse 94 98 96 Oximetry 08/17/17 08/17/17 09:04 14:22 Temperature Pulse Rate 95 H Respiratory 20 Rate Blood Pressure 151/98 O2 Sat by Pulse Oximetry Constitutional: no acute distress, alert Eyes: non-icteric ENT: oropharynx moist Neck: supple, no lymphadenopathy, no JVD, other (no organomegaly) Effort: normal Ascultation: Bilateral: clear Percussion: Bilateral: not dull Cardiovascular: regular rate and rhythm, other (no rubs or murmurs) Gastrointestinal: hypoactive bowel sounds, soft, tender (mild; diffusely; no hepatosplenomegaly) Integumentary: normal, other (no erhythema or cellulitis) Extremities: no cyanosis, no edema, pulses normal, no ischemia or petechiae Neurologic: normal mental status, non-focal exam, pupils equal and round, motor strength normal and Psychiatric: anxious, depressed CBC and BMP: 08/17/17 04:30 08/17/17 04:30 ABG, PT/INR, D-dimer: ABG ABG pH 7.364 pH Units (7.350-7.450) 08/17/17 10:11 ABG pCO2 44.6 mm Hg 08/17/17 10:11 ABG pO2 70.3 mm Hg (80.0-90.0) L 08/17/17 10:11 ABG O2 Saturation 93.5 % (95.0-99.0) L 08/17/17 10:11 PT/INR, D-dimer PT 15.5 Sec. (12.2-14.9) H 08/14/17 08:45 INR 1.17 (0.87-1.13) H 08/14/17 08:45 Abnormal lab findings: Abnormal Labs 08/14/17 08/14/17 08/14/17 11:06 11:32 11:32 WBC MCHC RDW Plt Count Seg Neuts % (Manual) Lymphocytes % (Manual) Seg Neutrophils # Man Monocytes # (Manual) ABG pO2 ABG O2 Saturation ABG Hemoglobin Oxyhemoglobin Sodium Potassium 5.4 H Chloride Carbon Dioxide 18 L BUN 46 H Creatinine 6.7 H Glucose 503 H* POC Glucose > 500 H Hemoglobin A1c Lactic Acid Calcium 7.3 L Troponin T C-Reactive Protein 2.40 H NT-Pro-B Natriuret Pep 08/14/17 08/14/17 08/14/17 11:32 12:19 13:29 WBC MCHC RDW Plt Count Seg Neuts % (Manual) Lymphocytes % (Manual) Seg Neutrophils # Man Monocytes # (Manual) ABG pO2 ABG O2 Saturation ABG Hemoglobin Oxyhemoglobin Sodium Potassium Chloride Carbon Dioxide BUN Creatinine Glucose POC Glucose 391 H 358 H Hemoglobin A1c Lactic Acid Calcium Troponin T C-Reactive Protein NT-Pro-B Natriuret Pep 6335 H 08/14/17 08/14/17 08/14/17 14:20 14:20 14:20 WBC MCHC RDW Plt Count Seg Neuts % (Manual) Lymphocytes % (Manual) Seg Neutrophils # Man Monocytes # (Manual) ABG pO2 ABG O2 Saturation ABG Hemoglobin Oxyhemoglobin Sodium Potassium 3.5 L D Chloride Carbon Dioxide BUN 53 H Creatinine 8.1 H Glucose 390 H POC Glucose Hemoglobin A1c Lactic Acid 2.20 H* Calcium Troponin T 0.440 H* C-Reactive Protein NT-Pro-B Natriuret Pep 08/14/17 08/14/17 08/14/17 14:53 16:28 18:31 WBC MCHC RDW Plt Count Seg Neuts % (Manual) Lymphocytes % (Manual) Seg Neutrophils # Man Monocytes # (Manual) ABG pO2 ABG O2 Saturation ABG Hemoglobin Oxyhemoglobin Sodium 131 L D Potassium 2.9 L* Chloride 90.5 L Carbon Dioxide 21 L BUN 47 H Creatinine 7.8 H Glucose 739 H* POC Glucose 383 H 218 H Hemoglobin A1c Lactic Acid Calcium 7.9 L Troponin T C-Reactive Protein NT-Pro-B Natriuret Pep 08/14/17 08/14/17 08/14/17 19:00 19:00 19:18 WBC MCHC RDW Plt Count Seg Neuts % (Manual) Lymphocytes % (Manual) Seg Neutrophils # Man Monocytes # (Manual) ABG pO2 ABG O2 Saturation ABG Hemoglobin Oxyhemoglobin Sodium 147 H D Potassium 3.5 L D Chloride Carbon Dioxide BUN 23 H Creatinine 4.0 H Glucose 187 H POC Glucose 169 H Hemoglobin A1c Lactic Acid Calcium 10.7 H D Troponin T 0.478 H* C-Reactive Protein NT-Pro-B Natriuret Pep 08/14/17 08/14/17 08/14/17 20:20 20:59 21:36 WBC MCHC RDW Plt Count Seg Neuts % (Manual) Lymphocytes % (Manual) Seg Neutrophils # Man Monocytes # (Manual) ABG pO2 ABG O2 Saturation ABG Hemoglobin Oxyhemoglobin Sodium 146 H Potassium Chloride Carbon Dioxide BUN 26 H Creatinine 5.1 H Glucose 254 H POC Glucose 224 H 227 H Hemoglobin A1c Lactic Acid Calcium Troponin T C-Reactive Protein NT-Pro-B Natriuret Pep 08/14/17 08/14/17 08/15/17 22:19 23:04 00:18 WBC MCHC RDW Plt Count Seg Neuts % (Manual) Lymphocytes % (Manual) Seg Neutrophils # Man Monocytes # (Manual) ABG pO2 ABG O2 Saturation ABG Hemoglobin Oxyhemoglobin Sodium Potassium Chloride Carbon Dioxide BUN Creatinine Glucose POC Glucose 217 H 227 H 205 H Hemoglobin A1c Lactic Acid Calcium Troponin T C-Reactive Protein NT-Pro-B Natriuret Pep 08/15/17 08/15/17 08/15/17 01:13 02:09 03:08 WBC MCHC RDW Plt Count Seg Neuts % (Manual) Lymphocytes % (Manual) Seg Neutrophils # Man Monocytes # (Manual) ABG pO2 ABG O2 Saturation ABG Hemoglobin Oxyhemoglobin Sodium Potassium Chloride Carbon Dioxide BUN Creatinine Glucose POC Glucose 224 H 193 H 212 H Hemoglobin A1c Lactic Acid Calcium Troponin T C-Reactive Protein NT-Pro-B Natriuret Pep 08/15/17 08/15/17 08/15/17 03:59 05:10 05:38 WBC MCHC RDW Plt Count Seg Neuts % (Manual) Lymphocytes % (Manual) Seg Neutrophils # Man Monocytes # (Manual) ABG pO2 ABG O2 Saturation ABG Hemoglobin Oxyhemoglobin Sodium Potassium Chloride Carbon Dioxide BUN Creatinine Glucose POC Glucose 193 H 161 H Hemoglobin A1c 10.7 H Lactic Acid Calcium Troponin T C-Reactive Protein NT-Pro-B Natriuret Pep 08/15/17 08/15/17 08/15/17 05:38 05:38 06:03 WBC 23.6 H MCHC RDW 16.1 H Plt Count Seg Neuts % (Manual) 83.0 H Lymphocytes % (Manual) 11.0 L Seg Neutrophils # Man 19.6 H Monocytes # (Manual) 1.4 H ABG pO2 ABG O2 Saturation ABG Hemoglobin Oxyhemoglobin Sodium 149 H Potassium Chloride Carbon Dioxide BUN 31 H Creatinine 7.4 H Glucose 137 H POC Glucose 168 H Hemoglobin A1c Lactic Acid Calcium Troponin T C-Reactive Protein NT-Pro-B Natriuret Pep 08/15/17 08/15/17 08/15/17 07:55 09:38 09:46 WBC MCHC RDW Plt Count Seg Neuts % (Manual) Lymphocytes % (Manual) Seg Neutrophils # Man Monocytes # (Manual) ABG pO2 ABG O2 Saturation ABG Hemoglobin Oxyhemoglobin Sodium Potassium Chloride Carbon Dioxide BUN 24 H Creatinine 5.0 H Glucose POC Glucose 196 H 231 H Hemoglobin A1c Lactic Acid Calcium Troponin T C-Reactive Protein NT-Pro-B Natriuret Pep 08/15/17 08/15/17 08/15/17 12:03 14:28 15:44 WBC MCHC RDW Plt Count Seg Neuts % (Manual) Lymphocytes % (Manual) Seg Neutrophils # Man Monocytes # (Manual) ABG pO2 ABG O2 Saturation ABG Hemoglobin Oxyhemoglobin Sodium Potassium Chloride Carbon Dioxide 17 L D BUN 39 H Creatinine 8.2 H D Glucose 300 H POC Glucose 165 H 370 H Hemoglobin A1c Lactic Acid Calcium Troponin T C-Reactive Protein NT-Pro-B Natriuret Pep 08/15/17 08/16/17 08/16/17 21:33 05:22 07:21 WBC 19.4 H MCHC 31 L RDW 16.2 H Plt Count Seg Neuts % (Manual) Lymphocytes % (Manual) Seg Neutrophils # Man Monocytes # (Manual) ABG pO2 ABG O2 Saturation ABG Hemoglobin Oxyhemoglobin Sodium Potassium Chloride Carbon Dioxide BUN Creatinine Glucose POC Glucose 275 H 287 H Hemoglobin A1c Lactic Acid Calcium Troponin T C-Reactive Protein NT-Pro-B Natriuret Pep 08/16/17 08/16/17 08/16/17 07:21 16:27 21:53 WBC MCHC RDW Plt Count Seg Neuts % (Manual) Lymphocytes % (Manual) Seg Neutrophils # Man Monocytes # (Manual) ABG pO2 ABG O2 Saturation ABG Hemoglobin Oxyhemoglobin Sodium Potassium Chloride 93.8 L Carbon Dioxide BUN 57 H Creatinine 10.4 H Glucose 342 H POC Glucose 290 H 249 H Hemoglobin A1c Lactic Acid Calcium Troponin T C-Reactive Protein NT-Pro-B Natriuret Pep 08/17/17 08/17/17 08/17/17 04:30 04:30 05:38 WBC 14.4 H MCHC RDW 15.6 H Plt Count 114 L Seg Neuts % (Manual) Lymphocytes % (Manual) Seg Neutrophils # Man Monocytes # (Manual) ABG pO2 ABG O2 Saturation ABG Hemoglobin Oxyhemoglobin Sodium Potassium Chloride 88.9 L Carbon Dioxide BUN 41 H Creatinine 8.1 H Glucose 267 H POC Glucose 273 H Hemoglobin A1c Lactic Acid Calcium 8.3 L Troponin T C-Reactive Protein NT-Pro-B Natriuret Pep 08/17/17 08/17/17 10:11 11:35 WBC MCHC RDW Plt Count Seg Neuts % (Manual) Lymphocytes % (Manual) Seg Neutrophils # Man Monocytes # (Manual) ABG pO2 70.3 L ABG O2 Saturation 93.5 L ABG Hemoglobin 12.3 L Oxyhemoglobin 90.2 L Sodium Potassium Chloride Carbon Dioxide BUN Creatinine Glucose POC Glucose 274 H Hemoglobin A1c Lactic Acid Calcium Troponin T C-Reactive Protein NT-Pro-B Natriuret Pep Allied health notes reviewed: nursing
[2017-08-18 06:30] LABS: Hematocrit 36.5 % (35.5-45.6); Hemoglobin 11.9 gm/dl (11.8-15.2); Mean Corpuscular HGB Conc 33 % (32-34); Mean Corpuscular Hemoglobin 28 pg (28-32); Mean Corpuscular Volume 87 fl (84-94); Platelet Count 106 K/mm3 (140-440); Red Blood Count 4.18 M/mm3 (3.65-5.03); Red Cell Distribution Width 15.1 % (13.2-15.2)
[2017-08-18 06:48] LABS: Calcium 7.7 mg/dL (8.4-10.2); Chloride 86.1 mmol/L (98-107); Potassium 4.3 mmol/L (3.6-5.0)
--- NOTE | 2017-08-18 07:44 | Progress Note ---
Assessment and Plan Impression * Diabetic ketoacidosis * Accelerated hypertension * End-stage renal disease. On maintenance hemodialysis * Anemia secondary to ESRD * Lactic acidosis. Rule out underlying sepsis Recommendations * Continue HD TTS * UF as tolerated * Tight glycemic control per primary team * Avoid nephrotoxins * His outpatient days are Mondays, Wednesdays and Fridays - resume schedule when closer to d/c Subjective Date of service: 08/18/17 Principal diagnosis: Hypertensive Emergency; ESRD on Dialysis Interval history: Patient has no complaints today. Objective - Vital Signs Vital signs: Vital Signs - 12hr 08/17/17 08/17/17 08/17/17 20:00 21:57 23:17 Temperature 98.1 F 98.5 F Pulse Rate 99 H 91 H Respiratory 16 14 Rate Blood Pressure 119/83 Blood Pressure 140/96 [Right] O2 Sat by Pulse 100 100 99 Oximetry - General Appearance General appearance: well-developed, well-nourished EENT: ATNC Respiratory: Present: Clear to Ascultation Cardiology: regular, S1S2 Gastrointestinal: normal, no tenderness, no distended Integumentary: no rash Neurologic: no focal deficit Psychiatric: cooperative - Lab 08/18/17 06:11 08/18/17 06:11 Most recent lab results ABG pH 7.364 pH Units (7.350-7.450) 08/17/17 10:11 ABG pCO2 44.6 mm Hg 08/17/17 10:11 ABG pO2 70.3 mm Hg (80.0-90.0) L 08/17/17 10:11 ABG HCO3 24.9 mmol/L (20.0-26.0) 08/17/17 10:11 ABG O2 Saturation 93.5 % (95.0-99.0) L 08/17/17 10:11 Calcium 7.7 mg/dL (8.4-10.2) L 08/18/17 06:11 Phosphorus 3.80 mg/dL (2.5-4.5) 08/14/17 09:52 Magnesium 2.30 mg/dL (1.7-2.3) 08/16/17 07:21
[2017-08-18] MEDS ORDERED: LEVAQUIN PO SCH (10:00)
[2017-08-18] MEDS: CATAPRES PO SCH (10:04)
[2017-08-18] MEDS: PROCARDIA XL PO SCH (10:05)
[2017-08-18] MEDS: LEVEMIR SUB-Q SCH (10:32)
[2017-08-18] MEDS: NOVOLOG SUB-Q SCH ×2 (10:36→12:47)
[2017-08-18] MEDS: PROTONIX PO SCH (10:39)
[2017-08-18] MEDS: HEPARIN SUB-Q SCH (10:41)
--- NOTE | 2017-08-18 10:41 | Gastroenterology Consultation ---
History of Present Illness - Reason for Consult Consult date: 08/18/17 intractable nausea/vomiting Requesting physician: TIKA HARRIS - History of Present Illness Mr Ventura is a 36 yo AAM with h/o poorly-controlled DM, ESRD, and diabetic gastroparesis who presents with chest pain. Pt found to have hypertensive emergency and poorly controlled dm on admission.. Patient reports compliance to insulin/DM medications at home, but states glucose levels have been difficult to control. He had intractable n/v along with chest pain for 2-3 days prior to admission. He has had similar episodes of n/v in the past related to uncontrolled dm. He reports improvement in po intake today, and was able to tolerate breakfast (cereal) w/o n/v or abd pain. He states GI symptoms have improved since admission. Denies gi bleeding, nsaid's, change in bowel habits, or weight loss. Chest pain has resolved. Reports having unremarkable EGD in 2016. Past History Past Medical History: diabetes, dialysis, hypertension Past Surgical History: Other (history of creation of AV graft) Social history: denies: smoking, alcohol abuse, prescription drug abuse Medications and Allergies Allergies Allergy/AdvReac Type Severity Reaction Status Date / Time iodine Allergy Severe Vomiting Verified 08/14/17 08:28 IV dye Allergy Severe Vomiting Uncoded 08/14/17 08:28 Home Medications Medication Instructions Recorded Confirmed Last Taken Type Vit B Comp C/Folic Acid/Vit D3 1 each PO QDAY 01/10/17 08/14/17 08/09/17 History [Dialyvite 800 Plus D Wafer] Acetaminophen [Acetaminophen TAB] 325 mg PO Q4H PRN #30 tablet 08/18/17 Unknown Rx Insulin Aspart [NovoLOG Flexpen] 1 dose SQ AC #1 pen 08/18/17 Unknown Rx Insulin Glargine [Lantus VIAL] 25 units SQ QHS #1 vial 08/18/17 08/14/17 Rx Metoclopramide [Reglan ORAL LIQ] 10 mg PO TIDAC #15 day 08/18/17 Unknown Rx NIFEdipine XL [Procardia Xl] 60 mg PO QDAY #30 tablet 08/18/17 Unknown Rx Pantoprazole [Protonix TAB] 40 mg PO QDAY #30 tablet 08/18/17 Unknown Rx cloNIDine-TTS PATCH [Catapres-Tts 1 patch TD Q7D #30 day 08/18/17 Unknown Rx Patch] oxyCODONE /ACETAMINOPHEN [Percocet 1 tab PO Q6H PRN #30 tablet 08/18/17 Unknown Rx 5/325 mg] Active Meds: Active Medications Acetaminophen (Tylenol) 650 mg PO Q4H PRN PRN Reason: Pain MILD(1-3)/Fever >100.5/SOARES Clonidine HCl (Catapres) 0.2 mg PO Q12HR [facility] Last Admin: 08/18/17 10:04 Dose: Not Given Dextrose (D50w (25gm) Syringe) 50 ml IV PRN PRN PRN Reason: Hypoglycemia Heparin Sodium (Porcine) (Heparin) 5,000 unit SUB-Q Q12HR [facility] Last Admin: 08/17/17 23:39 Dose: 5,000 unit Hydralazine HCl (Apresoline) 10 mg IV Q4HR PRN PRN Reason: Blood Pressure Hydromorphone HCl (Dilaudid) 1 mg IV Q4H PRN PRN Reason: Pain , Severe (7-10) Last Admin: 08/17/17 14:18 Dose: 1 mg Sodium Chloride (Nacl 0.9%) 100 mls @ 999 mls/hr IV MARI PRN PRN Reason: Hypotension Insulin Aspart (Novolog) 0 units SUB-Q ACHS [facility] PRN Reason: Protocol Last Admin: 08/17/17 21:49 Dose: Not Given Insulin Detemir (Levemir) 25 units SUB-Q QDDIAB [facility] Last Admin: 08/17/17 09:03 Dose: 25 units Labetalol HCl (Normodyne) 10 mg IV Q4H PRN PRN Reason: Blood Pressure Last Admin: 08/16/17 06:51 Dose: 10 mg Levofloxacin (Levaquin) 500 mg PO Q48HR [facility] Metoclopramide HCl (Reglan) 2.5 mg IV Q8H PRN PRN Reason: Nausea And Vomiting Nifedipine (Procardia Xl) 60 mg PO QDAY [facility] Last Admin: 08/18/17 10:05 Dose: Not Given Ondansetron HCl (Zofran) 4 mg IV Q4H PRN PRN Reason: N/V unrelieved by Reglan Oxycodone/Acetaminophen (Percocet 5/325) 1 tab PO Q6H PRN PRN Reason: Pain, Moderate (4-6) Pantoprazole Sodium (Protonix) 40 mg PO QDAY [facility] Last Admin: 08/17/17 09:04 Dose: 40 mg Review of Systems - Review of Systems All systems: negative (per HPI) Exam - Constitutional Vital Signs: Temp Pulse Resp BP Pulse Ox 98.0 F 86 20 106/69 98 08/18/17 08:32 08/18/17 08:32 08/18/17 08:32 08/18/17 10:04 08/18/17 08:32 General appearance: no acute distress - EENT Eyes: PERRL ENT: hearing intact, clear oral mucosa - Respiratory Respiratory effort: normal Respiratory: bilateral: CTA - Cardiovascular Rhythm: regular Heart Sounds: Present: S1 & S2 - Gastrointestinal General gastrointestinal: Present: soft, non-tender, non-distended - Integumentary Integumentary: Present: clear, warm - Musculoskeletal Musculoskeletal: normal - Neurologic Neurological: alert and oriented x3 - Psychiatric Psychiatric: appropriate mood/affect - Labs CBC & Chem 7: 08/18/17 06:11 08/18/17 06:11 Lab Results: Laboratory Results - last 24 hr 08/17/17 08/17/17 08/17/17 10:11 11:35 16:42 WBC RBC Hgb Hct MCV MCH MCHC RDW Plt Count ABG pH 7.364 ABG pCO2 44.6 ABG pO2 70.3 L ABG HCO3 24.9 ABG O2 Saturation 93.5 L ABG O2 Content 15.6 ABG Base Excess -0.7 ABG Hemoglobin 12.3 L ABG Carboxyhemoglobin 3.0 ABG Methemoglobin 0.5 Oxyhemoglobin 90.2 L FiO2 21 Sodium Potassium Chloride Carbon Dioxide Anion Gap BUN Creatinine Estimated GFR BUN/Creatinine Ratio Glucose POC Glucose 274 H 192 H Calcium 08/17/17 08/18/17 08/18/17 21:40 05:39 06:11 WBC 11.0 RBC 4.18 Hgb 11.9 Hct 36.5 MCV 87 MCH 28 MCHC 33 RDW 15.1 Plt Count 106 L ABG pH ABG pCO2 ABG pO2 ABG HCO3 ABG O2 Saturation ABG O2 Content ABG Base Excess ABG Hemoglobin ABG Carboxyhemoglobin ABG Methemoglobin Oxyhemoglobin FiO2 Sodium Potassium Chloride Carbon Dioxide Anion Gap BUN Creatinine Estimated GFR BUN/Creatinine Ratio Glucose POC Glucose 87 261 H Calcium 08/18/17 06:11 WBC RBC Hgb Hct MCV MCH MCHC RDW Plt Count ABG pH ABG pCO2 ABG pO2 ABG HCO3 ABG O2 Saturation ABG O2 Content ABG Base Excess ABG Hemoglobin ABG Carboxyhemoglobin ABG Methemoglobin Oxyhemoglobin FiO2 Sodium 132 L Potassium 4.3 Chloride 86.1 L Carbon Dioxide 23 Anion Gap 27 BUN 70 H Creatinine 10.5 H Estimated GFR 7 BUN/Creatinine Ratio 7 Glucose 290 H POC Glucose Calcium 7.7 L Assessment and Plan 1. Intractable nausea/vomiting 2. Diabetic gastroparesis 3 Malignant hypertension 4. ESRD -GI symptoms improved, likely 2/2 known diagnosis of diabetic gastroparesis in setting of poorly controlled dm (levels of > 500 admission). His symptoms improved as glucose has been better controlled during hospitalization -needs close outpt f/u with PCP for diabetes management, which would be main tx for his gastroparesis (hopefully would be able to avoid reglan if glucose levels improve at home) -low residue/low fat diet Will sign off, please call as needed or with questions.
--- NOTE | 2017-08-18 10:58 | Progress Note ---
Assessment and Plan Severe gastroparesis Hypertension DKA Chronic elevated troponin LHC 04/2015- non obstructive CAD echo 04/2015- moderate LVH, normal EF ESRD on HD Conservative cardiac management. Subjective Date of service: 08/18/17 Principal diagnosis: Hypertensive Emergency; ESRD on Dialysis Interval history: Patient denies chest pain and shortness of breath. Resting in bed comfortably. Objective Vital Signs Temp Pulse Resp BP BP Pulse Ox 08/18/17 10:04 106/69 08/18/17 08:32 98.0 F 86 20 106/69 98 08/18/17 08:19 100 08/18/17 03:56 98.5 F 83 14 119/84 99 08/17/17 23:17 98.5 F 91 H 14 119/83 99 08/17/17 21:57 100 08/17/17 20:00 98.1 F 99 H 16 140/96 100 08/17/17 19:40 98.1 F 99 H 14 140/96 100 08/17/17 17:15 96 08/17/17 16:36 99.0 F 95 H 20 114/77 94 08/17/17 14:22 20 - Physical Examination General: No Apparent Distress HEENT: Positive: PERRL Cardiac: Positive: Reg Rate and Rhythm Neuro: Positive: Grossly Intact - Labs and Meds CBC 08/18/17 Range/Units 06:11 WBC 11.0 (4.5-11.0) K/mm3 RBC 4.18 (3.65-5.03) M/mm3 Hgb 11.9 (11.8-15.2) gm/dl Hct 36.5 (35.5-45.6) % Plt Count 106 L (140-440) K/mm3 Comprehensive Metabolic Panel 08/18/17 Range/Units 06:11 Sodium 132 L (137-145) mmol/L Potassium 4.3 (3.6-5.0) mmol/L Chloride 86.1 L (98-107) mmol/L Carbon Dioxide 23 (22-30) mmol/L BUN 70 H (9-20) mg/dL Creatinine 10.5 H (0.8-1.5) mg/dL Glucose 290 H (75-100) mg/dL Calcium 7.7 L (8.4-10.2) mg/dL - Allied health notes Allied health notes reviewed: nursing
--- NOTE | 2017-08-18 12:21 | Progress Note ---
Subjective Date of service: 08/18/17 Principal diagnosis: Hypertensive Emergency; ESRD on Dialysis Interval history: Patient is seen today for: Seen and examined at bedside; 24hour events reviewed; nursing and respiratory care staff consulted; no adverse overnight events reported to me; Objective Vital Signs - 12hr 08/18/17 08/18/17 08/18/17 03:56 08:19 08:32 Temperature 98.5 F 98.0 F Pulse Rate 83 86 Respiratory 14 20 Rate Blood Pressure 119/84 106/69 O2 Sat by Pulse 99 100 98 Oximetry 08/18/17 08/18/17 10:04 11:57 Temperature 98.1 F Pulse Rate 90 Respiratory 50 H Rate Blood Pressure 106/69 104/69 O2 Sat by Pulse 94 Oximetry Constitutional: no acute distress, alert Eyes: non-icteric ENT: oropharynx moist Neck: supple, no lymphadenopathy, no JVD, other (no organomegaly) Effort: normal Ascultation: Bilateral: clear Percussion: Bilateral: not dull Cardiovascular: regular rate and rhythm, other (no rubs or murmurs) Gastrointestinal: hypoactive bowel sounds, soft, tender (mild; diffusely; no hepatosplenomegaly) Integumentary: normal, other (no erhythema or cellulitis) Extremities: no cyanosis, no edema, pulses normal, no ischemia or petechiae Neurologic: normal mental status, non-focal exam, pupils equal and round, motor strength normal and Psychiatric: anxious, depressed CBC and BMP: 08/18/17 06:11 08/18/17 06:11 ABG, PT/INR, D-dimer: ABG ABG pH 7.364 pH Units (7.350-7.450) 08/17/17 10:11 ABG pCO2 44.6 mm Hg 08/17/17 10:11 ABG pO2 70.3 mm Hg (80.0-90.0) L 08/17/17 10:11 ABG O2 Saturation 93.5 % (95.0-99.0) L 08/17/17 10:11 PT/INR, D-dimer PT 15.5 Sec. (12.2-14.9) H 08/14/17 08:45 INR 1.17 (0.87-1.13) H 08/14/17 08:45 Abnormal lab findings: Abnormal Labs 08/14/17 08/14/17 08/14/17 11:06 11:32 11:32 WBC MCHC RDW Plt Count Seg Neuts % (Manual) Lymphocytes % (Manual) Seg Neutrophils # Man Monocytes # (Manual) ABG pO2 ABG O2 Saturation ABG Hemoglobin Oxyhemoglobin Sodium Potassium 5.4 H Chloride Carbon Dioxide 18 L BUN 46 H Creatinine 6.7 H Glucose 503 H* POC Glucose > 500 H Hemoglobin A1c Lactic Acid Calcium 7.3 L Troponin T C-Reactive Protein 2.40 H NT-Pro-B Natriuret Pep 08/14/17 08/14/17 08/14/17 11:32 12:19 13:29 WBC MCHC RDW Plt Count Seg Neuts % (Manual) Lymphocytes % (Manual) Seg Neutrophils # Man Monocytes # (Manual) ABG pO2 ABG O2 Saturation ABG Hemoglobin Oxyhemoglobin Sodium Potassium Chloride Carbon Dioxide BUN Creatinine Glucose POC Glucose 391 H 358 H Hemoglobin A1c Lactic Acid Calcium Troponin T C-Reactive Protein NT-Pro-B Natriuret Pep 6335 H 08/14/17 08/14/17 08/14/17 14:20 14:20 14:20 WBC MCHC RDW Plt Count Seg Neuts % (Manual) Lymphocytes % (Manual) Seg Neutrophils # Man Monocytes # (Manual) ABG pO2 ABG O2 Saturation ABG Hemoglobin Oxyhemoglobin Sodium Potassium 3.5 L D Chloride Carbon Dioxide BUN 53 H Creatinine 8.1 H Glucose 390 H POC Glucose Hemoglobin A1c Lactic Acid 2.20 H* Calcium Troponin T 0.440 H* C-Reactive Protein NT-Pro-B Natriuret Pep 08/14/17 08/14/17 08/14/17 14:53 16:28 18:31 WBC MCHC RDW Plt Count Seg Neuts % (Manual) Lymphocytes % (Manual) Seg Neutrophils # Man Monocytes # (Manual) ABG pO2 ABG O2 Saturation ABG Hemoglobin Oxyhemoglobin Sodium 131 L D Potassium 2.9 L* Chloride 90.5 L Carbon Dioxide 21 L BUN 47 H Creatinine 7.8 H Glucose 739 H* POC Glucose 383 H 218 H Hemoglobin A1c Lactic Acid Calcium 7.9 L Troponin T C-Reactive Protein NT-Pro-B Natriuret Pep 08/14/17 08/14/17 08/14/17 19:00 19:00 19:18 WBC MCHC RDW Plt Count Seg Neuts % (Manual) Lymphocytes % (Manual) Seg Neutrophils # Man Monocytes # (Manual) ABG pO2 ABG O2 Saturation ABG Hemoglobin Oxyhemoglobin Sodium 147 H D Potassium 3.5 L D Chloride Carbon Dioxide BUN 23 H Creatinine 4.0 H Glucose 187 H POC Glucose 169 H Hemoglobin A1c Lactic Acid Calcium 10.7 H D Troponin T 0.478 H* C-Reactive Protein NT-Pro-B Natriuret Pep 08/14/17 08/14/17 08/14/17 20:20 20:59 21:36 WBC MCHC RDW Plt Count Seg Neuts % (Manual) Lymphocytes % (Manual) Seg Neutrophils # Man Monocytes # (Manual) ABG pO2 ABG O2 Saturation ABG Hemoglobin Oxyhemoglobin Sodium 146 H Potassium Chloride Carbon Dioxide BUN 26 H Creatinine 5.1 H Glucose 254 H POC Glucose 224 H 227 H Hemoglobin A1c Lactic Acid Calcium Troponin T C-Reactive Protein NT-Pro-B Natriuret Pep 08/14/17 08/14/17 08/15/17 22:19 23:04 00:18 WBC MCHC RDW Plt Count Seg Neuts % (Manual) Lymphocytes % (Manual) Seg Neutrophils # Man Monocytes # (Manual) ABG pO2 ABG O2 Saturation ABG Hemoglobin Oxyhemoglobin Sodium Potassium Chloride Carbon Dioxide BUN Creatinine Glucose POC Glucose 217 H 227 H 205 H Hemoglobin A1c Lactic Acid Calcium Troponin T C-Reactive Protein NT-Pro-B Natriuret Pep 08/15/17 08/15/17 08/15/17 01:13 02:09 03:08 WBC MCHC RDW Plt Count Seg Neuts % (Manual) Lymphocytes % (Manual) Seg Neutrophils # Man Monocytes # (Manual) ABG pO2 ABG O2 Saturation ABG Hemoglobin Oxyhemoglobin Sodium Potassium Chloride Carbon Dioxide BUN Creatinine Glucose POC Glucose 224 H 193 H 212 H Hemoglobin A1c Lactic Acid Calcium Troponin T C-Reactive Protein NT-Pro-B Natriuret Pep 08/15/17 08/15/17 08/15/17 03:59 05:10 05:38 WBC MCHC RDW Plt Count Seg Neuts % (Manual) Lymphocytes % (Manual) Seg Neutrophils # Man Monocytes # (Manual) ABG pO2 ABG O2 Saturation ABG Hemoglobin Oxyhemoglobin Sodium Potassium Chloride Carbon Dioxide BUN Creatinine Glucose POC Glucose 193 H 161 H Hemoglobin A1c 10.7 H Lactic Acid Calcium Troponin T C-Reactive Protein NT-Pro-B Natriuret Pep 08/15/17 08/15/17 08/15/17 05:38 05:38 06:03 WBC 23.6 H MCHC RDW 16.1 H Plt Count Seg Neuts % (Manual) 83.0 H Lymphocytes % (Manual) 11.0 L Seg Neutrophils # Man 19.6 H Monocytes # (Manual) 1.4 H ABG pO2 ABG O2 Saturation ABG Hemoglobin Oxyhemoglobin Sodium 149 H Potassium Chloride Carbon Dioxide BUN 31 H Creatinine 7.4 H Glucose 137 H POC Glucose 168 H Hemoglobin A1c Lactic Acid Calcium Troponin T C-Reactive Protein NT-Pro-B Natriuret Pep 08/15/17 08/15/17 08/15/17 07:55 09:38 09:46 WBC MCHC RDW Plt Count Seg Neuts % (Manual) Lymphocytes % (Manual) Seg Neutrophils # Man Monocytes # (Manual) ABG pO2 ABG O2 Saturation ABG Hemoglobin Oxyhemoglobin Sodium Potassium Chloride Carbon Dioxide BUN 24 H Creatinine 5.0 H Glucose POC Glucose 196 H 231 H Hemoglobin A1c Lactic Acid Calcium Troponin T C-Reactive Protein NT-Pro-B Natriuret Pep 08/15/17 08/15/17 08/15/17 12:03 14:28 15:44 WBC MCHC RDW Plt Count Seg Neuts % (Manual) Lymphocytes % (Manual) Seg Neutrophils # Man Monocytes # (Manual) ABG pO2 ABG O2 Saturation ABG Hemoglobin Oxyhemoglobin Sodium Potassium Chloride Carbon Dioxide 17 L D BUN 39 H Creatinine 8.2 H D Glucose 300 H POC Glucose 165 H 370 H Hemoglobin A1c Lactic Acid Calcium Troponin T C-Reactive Protein NT-Pro-B Natriuret Pep 08/15/17 08/16/17 08/16/17 21:33 05:22 07:21 WBC 19.4 H MCHC 31 L RDW 16.2 H Plt Count Seg Neuts % (Manual) Lymphocytes % (Manual) Seg Neutrophils # Man Monocytes # (Manual) ABG pO2 ABG O2 Saturation ABG Hemoglobin Oxyhemoglobin Sodium Potassium Chloride Carbon Dioxide BUN Creatinine Glucose POC Glucose 275 H 287 H Hemoglobin A1c Lactic Acid Calcium Troponin T C-Reactive Protein NT-Pro-B Natriuret Pep 08/16/17 08/16/17 08/16/17 07:21 16:27 21:53 WBC MCHC RDW Plt Count Seg Neuts % (Manual) Lymphocytes % (Manual) Seg Neutrophils # Man Monocytes # (Manual) ABG pO2 ABG O2 Saturation ABG Hemoglobin Oxyhemoglobin Sodium Potassium Chloride 93.8 L Carbon Dioxide BUN 57 H Creatinine 10.4 H Glucose 342 H POC Glucose 290 H 249 H Hemoglobin A1c Lactic Acid Calcium Troponin T C-Reactive Protein NT-Pro-B Natriuret Pep 08/17/17 08/17/17 08/17/17 04:30 04:30 05:38 WBC 14.4 H MCHC RDW 15.6 H Plt Count 114 L Seg Neuts % (Manual) Lymphocytes % (Manual) Seg Neutrophils # Man Monocytes # (Manual) ABG pO2 ABG O2 Saturation ABG Hemoglobin Oxyhemoglobin Sodium Potassium Chloride 88.9 L Carbon Dioxide BUN 41 H Creatinine 8.1 H Glucose 267 H POC Glucose 273 H Hemoglobin A1c Lactic Acid Calcium 8.3 L Troponin T C-Reactive Protein NT-Pro-B Natriuret Pep 08/17/17 08/17/17 08/17/17 10:11 11:35 16:42 WBC MCHC RDW Plt Count Seg Neuts % (Manual) Lymphocytes % (Manual) Seg Neutrophils # Man Monocytes # (Manual) ABG pO2 70.3 L ABG O2 Saturation 93.5 L ABG Hemoglobin 12.3 L Oxyhemoglobin 90.2 L Sodium Potassium Chloride Carbon Dioxide BUN Creatinine Glucose POC Glucose 274 H 192 H Hemoglobin A1c Lactic Acid Calcium Troponin T C-Reactive Protein NT-Pro-B Natriuret Pep 08/18/17 08/18/17 08/18/17 05:39 06:11 06:11 WBC MCHC RDW Plt Count 106 L Seg Neuts % (Manual) Lymphocytes % (Manual) Seg Neutrophils # Man Monocytes # (Manual) ABG pO2 ABG O2 Saturation ABG Hemoglobin Oxyhemoglobin Sodium 132 L Potassium Chloride 86.1 L Carbon Dioxide BUN 70 H Creatinine 10.5 H Glucose 290 H POC Glucose 261 H Hemoglobin A1c Lactic Acid Calcium 7.7 L Troponin T C-Reactive Protein NT-Pro-B Natriuret Pep Allied health notes reviewed: nursing
--- NOTE | 2017-08-18 14:09 | Discharge Summary ---
Providers - Providers Date of Admission: 08/14/17 10:53 Date of discharge: 08/18/17 Attending physician: TIKA HARRIS 08/15/17 06:28 PICC Line Insertion [Consult to PICC Line RN] [CONS] Urgent Reason For Exam: on cardiovascular drugs Type Line:: PICC 08/17/17 11:31 Consult to Physician [CONS] Routine Consulting Provider: DARRYL THOMAS Reason For Exam: intractable nausea, pt known to you Place consult to:: dr. thomas/ hugo Notified:: office Phone number called:: Was contact made?: Yes If yes, spoke with:: dorian Time called:: 12:36 Primary care physician: MAILING MANAGER Hospitalization Condition: Stable Hospital course: This is a 36-year-old man history end-stage renal disease on hemodialysis TTS hypertension and diabetes mellitus type 2 on insulin who presents with chest pain. Found to have uncontrolled blood sugars but his VbG was 7.579 and he was started on insulin drip, admitted to the ICU on Cardene drip. -Malignant hypertension: Cardene weaned off, use IV when necessary labetalol instead of hydralazine due to tachycardia, pt wishes to restart home clonidine -ESRD: needing hemodialysis, renal is following -HONK not DKA: stop insulin drip, increase Levemir -Uncontrolled type 2 diabetes mellitus on insulin, A1c of 10.1 which is indicative of poorly controlled diabetes mellitus: Counseling on compliance done -DVT prophylaxis: add sq heparin full code Disposition: continue inpatient care, bp improved but pt is not eating due to severe constant nausea, ?gastroparesis. He saw Dr. Thomas (GI) for this in the past, will consult him. Blood glucose elevated due to the fact that he is not on his home dose of 40 units of Levemir because he is not eating or drinking; therefore, will continue ssi. Patient tolerating liquids It appears pt has gastroparesis which leads him to stop eating and he stops taking his medication which leads to serious complications. We discussed compliance in detail. He should consider a clonidine patch to circumvent the nausea, vomiting. If he is not eating, he still should take half of his regular levemir dose of 40 units. We discussed Reglan and this is side effects. He will try short- term. Disposition: DC-01 TO HOME OR SELFCARE Time spent for discharge: 35 minutes Core Measure Documentation - Palliative Care Palliative Care/ Comfort Measures: Not Applicable - Core Measures Any of the following diagnoses?: none - VTE Discharge Requirements Deep Vein Thrombosis/Pulmonary Embolism Present on Admission: No Has pt received <5 days of overlap therapy or INR<2.0: No Anticoagulant overlap therapy prescribed at discharge: No Contraindication No Overlap Therapy order at DC: Not Indicated Exam - Physical Exam Narrative exam: GEN: WDWN, NAD, AWAKE, ALERT, ORIENTATED 3 HEENT: NCAT, EOMI, PERRL, OP Clear NECK: supple, no adenopathy, no thyromegaly, no JVD CVS/HEART: RRR, NORMAL S1S2, NO JVD, pulses present bilaterally CHEST/LUNGS: CTA B, Symmetrical chest expansion, good air entry bilaterally GI/Abdomen: soft, NTND, good bowel sounds, no guarding or rebound /Bladder: no suprapubic tenderness, no CVA or paraspinal tenderness EXT/Skin: no c/c/e, no significant edema or obvious rash MSK: FROM x 4 Neuro: CN 2-12 grossly intact, no new focal deficits Psych: calm - Constitutional Vitals: Temp Pulse Resp BP Pulse Ox 98.1 F 90 50 H 104/69 94 08/18/17 11:57 08/18/17 11:57 08/18/17 11:57 08/18/17 11:57 08/18/17 11:57 Plan Activity: other Diet: diabetic, renal Special Instructions: record daily BP diary, record blood sugar diary Follow up with: PRIMARY MD SHAUN [Primary Care Provider] - 3-5 Days DARRYL THOMAS MD [Staff Physician] - 7 Days Prescriptions: cloNIDine-TTS PATCH [Catapres-Tts Patch] 1 patch TD Q7D #30 day Insulin Aspart [NovoLOG Flexpen] 1 dose SQ AC #1 pen Metoclopramide [Reglan ORAL LIQ] 10 mg PO TIDAC #15 day NIFEdipine XL [Procardia Xl] 60 mg PO QDAY #30 tablet oxyCODONE /ACETAMINOPHEN [Percocet 5/325 mg] 1 tab PO Q6H PRN #30 tablet PRN Reason: Pain , Severe (7-10) Pantoprazole [Protonix TAB] 40 mg PO QDAY #30 tablet
[2017-08-18 20:35] VITALS: BP 133/84
== END 2017-08-18 20:46 | disposition home or self-care (01) | DRG 871 ==
LOC: ED 08:21 → CC1 10:53 → 3A 08-15 19:05
PROVIDERS: ADMIT Internal Medicine; ATTEND Internal Medicine
PROC: 5A1D70Z Performance of Urinary Filtration, Intermittent, Less than 6 Hours Per Day (ICD-10-PCS; 2017-08-14)
PROC: 5A1D70Z Performance of Urinary Filtration, Intermittent, Less than 6 Hours Per Day (ICD-10-PCS; 2017-08-16)
PROC: 4A033R1 Measurement of Arterial Saturation, Peripheral, Percutaneous Approach (ICD-10-PCS; principal; 2017-08-17)
PROC: 5A1D70Z Performance of Urinary Filtration, Intermittent, Less than 6 Hours Per Day (ICD-10-PCS; 2017-08-18)
DX: A41.9 Sepsis, unspecified organism (principal); N18.6 End stage renal disease; I21.4 Non-ST elevation (NSTEMI) myocardial infarction; E11.00 Type 2 diabetes mellitus with hyperosmolarity without nonketotic hyperglycemic-hyperosmolar coma (NKHHC); I16.1 Hypertensive emergency; I12.0 Hypertensive chronic kidney disease with stage 5 chronic kidney disease or end stage renal disease; D63.1 Anemia in chronic kidney disease; K31.84 Gastroparesis; E11.43 Type 2 diabetes mellitus with diabetic autonomic (poly)neuropathy; Z89.421 Acquired absence of other right toe(s); Z88.5 Allergy status to narcotic agent; Z88.8 Allergy status to other drugs, medicaments and biological substances
CPT/HCPCS: 36415; 36600; 70450; 71010; 71275; 74175; 80048; 80053; 80061; 82140; 82550; 82803; 82805; 82962; 83036; 83735; 83880; 84100; 84484; 85007; 85025; 85027; 85610; 86140; 87040; 93005; 93010; 94760; 99291; J0360; J1170; J1200; J1644; J1815; J1818; J1956; J2405; J2765; J2930; J7030; J7050; Q9967

== ENCOUNTER 2017-08-20 12:51 | Emergency (ER) | payer MEDICARE ==
[2017-08-20 14:37] LABS: Basophils % (Auto) 0.1 % (0.0-1.8); Eosinophils % (Auto) 0.4 % (0.0-4.3); Hematocrit 39.1 % (35.5-45.6); Hemoglobin 12.3 gm/dl (11.8-15.2); Mean Corpuscular HGB Conc 31 % (32-34); Mean Corpuscular Hemoglobin 28 pg (28-32); Mean Corpuscular Volume 89 fl (84-94); Platelet Count 144 K/mm3 (140-440); Red Blood Count 4.38 M/mm3 (3.65-5.03); Red Cell Distribution Width 15.3 % (13.2-15.2); White Blood Count 11.9 K/mm3 (4.5-11.0)
[2017-08-20 14:53] LABS: Calcium 7.4 mg/dL (8.4-10.2); Chloride 82.9 mmol/L (98-107)
[2017-08-20 17:39] VITALS: BP 156/107
== END 2017-08-20 21:04 | disposition left against medical advice (07) ==
LOC: ED 12:51
DX: Z53.21 Procedure and treatment not carried out due to patient leaving prior to being seen by health care provider (principal)
CPT/HCPCS: 36415; 80048; 84484; 85025; 93005; 93010

== ENCOUNTER 2017-10-07 08:00 | Emergency (ER) | payer BC, MEDICARE ==
[2017-10-07 09:00] VITALS: BP 180/106
--- NOTE | 2017-10-07 10:54 | Emergency Department Report ---
ED General Adult HPI - General Chief complaint: Back Pain/Injury Stated complaint: BACK PAIN Time Seen by Provider: 10/07/17 10:17 Source: patient Mode of arrival: Ambulatory Limitations: No Limitations - History of Present Illness Initial comments: PT states he went to HD this morning and was sent to ED to rule out calciphylaxis. PT denies symptoms. PT states his HD nurse told him that his back "felt funny" PT denies fever, chills, n/v, cp, sob, rash Pt has been on HD since Nov. Complaint: r/o calciphylaxis -: Gradual Severity scale (0 -10): 0 Consistency: other (pt never had symptoms ) Associated Symptoms: denies other symptoms. denies: chest pain, cough, fever/ chills, malaise, nausea/vomiting, rash - Related Data Home Medications Medication Instructions Recorded Confirmed Last Taken Vit B Comp C/Folic Acid/Vit D3 1 each PO QDAY 01/10/17 08/14/17 08/09/17 [Dialyvite 800 Plus D Wafer] Previous Rx's Medication Instructions Recorded Last Taken Type Acetaminophen [Acetaminophen TAB] 325 mg PO Q4H PRN #30 tablet 08/18/17 Unknown Rx Insulin Aspart [NovoLOG Flexpen] 1 dose SQ AC #1 pen 08/18/17 Unknown Rx Insulin Glargine [Lantus VIAL] 25 units SQ QHS #1 vial 08/18/17 08/09/17 Rx Metoclopramide [Reglan ORAL LIQ] 10 mg PO TIDAC #15 day 08/18/17 Unknown Rx NIFEdipine XL [Procardia Xl] 60 mg PO QDAY #30 tablet 08/18/17 Unknown Rx Pantoprazole [Protonix TAB] 40 mg PO QDAY #30 tablet 08/18/17 Unknown Rx cloNIDine-TTS PATCH [Catapres-Tts 1 patch TD Q7D #30 day 08/18/17 Unknown Rx Patch] oxyCODONE /ACETAMINOPHEN [Percocet 1 tab PO Q6H PRN #30 tablet 08/18/17 Unknown Rx 5/325 mg] Allergies Allergy/AdvReac Type Severity Reaction Status Date / Time iodine Allergy Severe Vomiting Verified 08/14/17 08:28 IV dye Allergy Severe Vomiting Uncoded 08/14/17 08:28 ED Review of Systems ROS: Stated complaint: BACK PAIN Other details as noted in HPI Comment: All other systems reviewed and negative Constitutional: denies: chills, fever Respiratory: denies: cough, shortness of breath Cardiovascular: denies: chest pain Gastrointestinal: denies: nausea, vomiting Musculoskeletal: denies: back pain Skin: denies: rash Neurological: denies: headache ED Past Medical Hx - Past Medical History Hx Hypertension: Yes (Coreg ) Hx CVA: Yes (TIA's) Hx Heart Attack/AMI: Yes Hx Congestive Heart Failure: No Hx Diabetes: Yes Hx Deep Vein Thrombosis: No Hx Pulmonary Embolism: No Hx GERD: No Hx Liver Disease: No Hx Renal Disease: Yes (M-W-F) Hx Sickle Cell Disease: No Hx Arthritis: No Hx Headaches / Migraines: No Hx Seizures: No Hx Kidney Stones: No Hx Psychiatric Treatment: No Hx Asthma: No Hx COPD: No Hx Tuberculosis: No Hx Dementia: No Hx HIV: No Additional medical history: gastroparesis - Surgical History Hx Coronary Stent: No Hx Open Heart Surgery: No Hx Pacemaker: No Hx Internal Defibrillator: No Hx Cholecystectomy: No Hx Appendectomy: No Hx Breast Surgery: No Additional Surgical History: left eye surgery, right toe amputation, right chest vas cath. GRAFT RIGHT UPPER ARM - Social History Smoking Status: Never Smoker Substance Use Type: None - Medications Home Medications: Home Medications Medication Instructions Recorded Confirmed Last Taken Type Vit B Comp C/Folic Acid/Vit D3 1 each PO QDAY 01/10/17 08/14/17 08/09/17 History [Dialyvite 800 Plus D Wafer] Acetaminophen [Acetaminophen TAB] 325 mg PO Q4H PRN #30 tablet 08/18/17 Unknown Rx Insulin Aspart [NovoLOG Flexpen] 1 dose SQ AC #1 pen 08/18/17 Unknown Rx Insulin Glargine [Lantus VIAL] 25 units SQ QHS #1 vial 08/18/17 08/14/17 Rx Metoclopramide [Reglan ORAL LIQ] 10 mg PO TIDAC #15 day 08/18/17 Unknown Rx NIFEdipine XL [Procardia Xl] 60 mg PO QDAY #30 tablet 08/18/17 Unknown Rx Pantoprazole [Protonix TAB] 40 mg PO QDAY #30 tablet 08/18/17 Unknown Rx cloNIDine-TTS PATCH [Catapres-Tts 1 patch TD Q7D #30 day 08/18/17 Unknown Rx Patch] oxyCODONE /ACETAMINOPHEN [Percocet 1 tab PO Q6H PRN #30 tablet 08/18/17 Unknown Rx 5/325 mg] ED Physical Exam - General Limitations: No Limitations General appearance: alert, in no apparent distress - Head Head exam: Present: atraumatic, normocephalic, normal inspection - Eye Eye exam: Present: normal appearance, EOMI - ENT ENT exam: Present: normal exam, normal external ear exam - Neck Neck exam: Present: normal inspection, full ROM - Respiratory Respiratory exam: Present: normal lung sounds bilaterally. Absent: respiratory distress, chest wall tenderness - Cardiovascular Cardiovascular Exam: Present: regular rate, normal rhythm, normal heart sounds - GI/Abdominal GI/Abdominal exam: Present: soft. Absent: tenderness - Extremities Exam Extremities exam: Present: normal inspection, full ROM, other (no skin lesions ) . Absent: calf tenderness - Back Exam Back exam: Present: normal inspection, full ROM. Absent: tenderness, CVA tenderness (R), CVA tenderness (L), muscle spasm, paraspinal tenderness, vertebral tenderness - Neurological Exam Neurological exam: Present: alert, oriented X3, normal gait - Psychiatric Psychiatric exam: Present: normal affect, normal mood - Skin Skin exam: Present: warm, dry, intact, normal color. Absent: rash ED Course Vital Signs 10/07/17 08:52 Temperature 98.5 F Pulse Rate 92 H Respiratory 18 Rate Blood Pressure 180/106 O2 Sat by Pulse 100 Oximetry - Reevaluation(s) Reevaluation #1: 10/07/17 11:[address] Hudson about this pt. As pt has no skin lesions, no indications for skin biopsy. PT aware of this and agrees with plan of care. - Pulse Oximetry Interpretation Digit-Finger Initial Pulse Oximetry Readin Actions Taken: none ED Medical Decision Making - Differential Diagnosis calciphylaxis, rash, feared not found dx Critical Care Time: No Critical care attestation.: If time is entered above; I have spent that time in minutes in the direct care of this critically ill patient, excluding procedure time. ED Disposition Clinical Impression: Uncontrolled hypertension, Feared complaint without diagnosis Disposition: DC-01 TO HOME OR SELFCARE Is pt being admited?: No Does the pt Need Aspirin: No Condition: Stable Instructions: Hypertension (ED) Additional Instructions: Follow up with HD. Finish your treatment. continue home meds If you develop a rash or skin lesions, return to the ED Referrals: PRIMARY CARE, [Primary Care Provider] - 3-5 Days CHERI CHICAS MD [Staff Physician] - 3-5 Days CLARK KAN MD [Staff Physician] - 3-5 Days Time of Disposition: 11:04
== END 2017-10-07 11:25 | disposition home or self-care (01) ==
LOC: ED 08:00
DX: I10 Essential (primary) hypertension (principal); E11.9 Type 2 diabetes mellitus without complications; I25.2 Old myocardial infarction; Z79.4 Long term (current) use of insulin; Z86.73 Personal history of transient ischemic attack (TIA), and cerebral infarction without residual deficits; Z88.8 Allergy status to other drugs, medicaments and biological substances; Z91.041 Radiographic dye allergy status
CPT/HCPCS: 99282

== ENCOUNTER 2018-01-16 10:06 | Emergency (ER) | payer OTHER, MEDICARE ==
[2018-01-16] MEDS ORDERED: ASPIRIN PO ONE (10:25)
[2018-01-16 10:44] LABS: Basophils # (Auto) 0.1 K/mm3 (0.0-0.1); Basophils % (Auto) 0.5 % (0.0-1.8); Eosinophils # (Auto) 0.1 K/mm3 (0.0-0.4); Eosinophils % (Auto) 0.9 % (0.0-4.3); Hematocrit 35.3 % (35.5-45.6); Hemoglobin 11.7 gm/dl (11.8-15.2); Lymphocytes # (Auto) 1.4 K/mm3 (1.2-5.4); Lymphocytes % (Auto) 12.6 % (13.4-35.0); Mean Corpuscular HGB Conc 33 % (32-34); Mean Corpuscular Hemoglobin 30 pg (28-32); Mean Corpuscular Volume 90 fl (84-94); Monocytes # (Auto) 0.9 K/mm3 (0.0-0.8); Monocytes % (Auto) 8.2 % (0.0-7.3); Platelet Count 105 K/mm3 (140-440); Red Blood Count 3.93 M/mm3 (3.65-5.03); Red Cell Distribution Width 16.3 % (13.2-15.2)
[2018-01-16 11:03] LABS: Calcium 8.4 mg/dL (8.4-10.2)
[2018-01-16 11:31] LABS: Chol/HDL Ratio 4.6 %
[2018-01-16] MEDS ORDERED: MORPHINE IV ONE (14:29)
[2018-01-16] MEDS ORDERED: ZOFRAN IV ONE (14:29)
[2018-01-16] MEDS ORDERED: NITRO-BID 2% TP ONE (14:30)
--- NOTE | 2018-01-16 14:39 | Emergency Department Report ---
ED Chest Pain HPI - General Chief Complaint: Chest Pain Stated Complaint: CHEST PAIN Time Seen by Provider: 01/16/18 14:20 Source: patient, EMS Mode of arrival: Ambulatory Limitations: No Limitations - History of Present Illness Initial Comments: Patient is a 37-year-old male who is presenting with chest pain. Patient has a past medical history of hypertension end-stage renal disease and diabetes. Patient's last left heart cath was in 2014 which showed minimal coronary artery disease. Patient's last stress test with Dr. Ramirez with [facility] was 3 months ago and patient was told was normal. Patient states around 4 AM this morning he began having chest pressure. Patient states it was 8 out of 10 in severity. Patient had shortness of breath at the time of the chest pain. The patient was seen at dialysis and only got about an hour and a half of his dialysis secondary to having chest pain. After Catapres was given for high blood pressures last reading before arrival was 183/108. Patient denies any nausea vomiting abdominal pain at this time. - Related Data Home Medications Medication Instructions Recorded Confirmed Last Taken Vit B Comp C/Folic Acid/Vit D3 1 each PO QDAY 01/10/17 08/14/17 08/09/17 [Dialyvite 800 Plus D Wafer] Previous Rx's Medication Instructions Recorded Last Taken Type Acetaminophen [Acetaminophen TAB] 325 mg PO Q4H PRN #30 tablet 08/18/17 Unknown Rx Insulin Aspart [NovoLOG Flexpen] 1 dose SQ AC #1 pen 08/18/17 Unknown Rx Insulin Glargine [Lantus VIAL] 25 units SQ QHS #1 vial 08/18/17 08/09/17 Rx Metoclopramide [Reglan ORAL LIQ] 10 mg PO TIDAC #15 day 08/18/17 Unknown Rx NIFEdipine XL [Procardia Xl] 60 mg PO QDAY #30 tablet 08/18/17 Unknown Rx Pantoprazole [Protonix TAB] 40 mg PO QDAY #30 tablet 08/18/17 Unknown Rx cloNIDine-TTS PATCH [Catapres-Tts 1 patch TD Q7D #30 day 08/18/17 Unknown Rx Patch] oxyCODONE /ACETAMINOPHEN [Percocet 1 tab PO Q6H PRN #30 tablet 08/18/17 Unknown Rx 5/325 mg] HYDROcodone/APAP 5-325 [[place] 1 each PO Q6HR PRN #10 tablet 01/16/18 Unknown Rx 5/325] Allergies Allergy/AdvReac Type Severity Reaction Status Date / Time iodine Allergy Severe Vomiting Verified 08/14/17 08:28 IV dye Allergy Severe Vomiting Uncoded 08/14/17 08:28 Heart Score - HEART Score History: Moderately suspicious EKG: Non-specific Age: < 45 Risk factors: > 3 risk factors or hx of atherosclerotic disease Troponin: 1-3x normal limit HEART Score: 5 ED Review of Systems ROS: Stated complaint: CHEST PAIN Other details as noted in HPI Comment: All other systems reviewed and negative ED Past Medical Hx - Past Medical History Previous Medical History?: Yes Hx Hypertension: Yes (Coreg ) Hx CVA: Yes (TIA's) Hx Heart Attack/AMI: Yes Hx Congestive Heart Failure: No Hx Diabetes: Yes Hx Deep Vein Thrombosis: No Hx Pulmonary Embolism: No Hx GERD: No Hx Liver Disease: No Hx Renal Disease: Yes (M-W-F) Hx Sickle Cell Disease: No Hx Arthritis: No Hx Headaches / Migraines: No Hx Seizures: No Hx Kidney Stones: No Hx Psychiatric Treatment: No Hx Asthma: No Hx COPD: No Hx Tuberculosis: No Hx Dementia: No Hx HIV: No Additional medical history: gastroparesis - Surgical History Past Surgical History?: Yes Hx Coronary Stent: No Hx Open Heart Surgery: No Hx Pacemaker: No Hx Internal Defibrillator: No Hx Cholecystectomy: No Hx Appendectomy: No Hx Breast Surgery: No Additional Surgical History: left eye surgery, right toe amputation, right chest vas cath. GRAFT RIGHT UPPER ARM - Social History Smoking Status: Never Smoker Substance Use Type: Prescribed - Medications Home Medications: Home Medications Medication Instructions Recorded Confirmed Last Taken Type Vit B Comp C/Folic Acid/Vit D3 1 each PO QDAY 01/10/17 08/14/17 08/09/17 History [Dialyvite 800 Plus D Wafer] Acetaminophen [Acetaminophen TAB] 325 mg PO Q4H PRN #30 tablet 08/18/17 Unknown Rx Insulin Aspart [NovoLOG Flexpen] 1 dose SQ AC #1 pen 08/18/17 Unknown Rx Insulin Glargine [Lantus VIAL] 25 units SQ QHS #1 vial 08/18/17 08/14/17 Rx Metoclopramide [Reglan ORAL LIQ] 10 mg PO TIDAC #15 day 08/18/17 Unknown Rx NIFEdipine XL [Procardia Xl] 60 mg PO QDAY #30 tablet 08/18/17 Unknown Rx Pantoprazole [Protonix TAB] 40 mg PO QDAY #30 tablet 08/18/17 Unknown Rx cloNIDine-TTS PATCH [Catapres-Tts 1 patch TD Q7D #30 day 08/18/17 Unknown Rx Patch] oxyCODONE /ACETAMINOPHEN [Percocet 1 tab PO Q6H PRN #30 tablet 08/18/17 Unknown Rx 5/325 mg] HYDROcodone/APAP 5-325 [[place] 1 each PO Q6HR PRN #10 tablet 01/16/18 Unknown Rx 5/325] ED Physical Exam - General Limitations: No Limitations General appearance: alert, in no apparent distress - Head Head exam: Present: atraumatic, normocephalic - Eye Eye exam: Present: normal appearance - ENT ENT exam: Present: mucous membranes moist - Neck Neck exam: Present: normal inspection - Respiratory Respiratory exam: Present: normal lung sounds bilaterally. Absent: respiratory distress, wheezes, rales, rhonchi - Cardiovascular Cardiovascular Exam: Present: regular rate, normal rhythm. Absent: systolic murmur, diastolic murmur, rubs, gallop - GI/Abdominal GI/Abdominal exam: Present: soft, normal bowel sounds. Absent: distended, tenderness, guarding, rebound - Rectal Rectal exam: Present: deferred - Extremities Exam Extremities exam: Present: normal inspection - Back Exam Back exam: Present: normal inspection - Neurological Exam Neurological exam: Present: alert, oriented X3 - Psychiatric Psychiatric exam: Present: normal affect, normal mood - Skin Skin exam: Present: warm, dry, intact, normal color. Absent: rash ED Course Vital Signs 01/16/18 01/16/18 01/16/18 10:21 14:25 14:31 Temperature 98.8 F Pulse Rate 90 67 86 Respiratory 20 18 13 Rate Blood Pressure 150/99 133/82 Blood Pressure [Left] O2 Sat by Pulse 99 98 96 Oximetry 01/16/18 14:37 Temperature Pulse Rate 84 Respiratory 18 Rate Blood Pressure Blood Pressure 133/82 [Left] O2 Sat by Pulse 94 Oximetry RUFINA score - Rufina Score Age > 65: (0) No Aspirin use within the Past 7 Days: (1) Yes 3 or more CAD Risk Factors: (1) Yes 2 or more Angina events in past 24 hrs: (1) Yes Known CAD with more than 50% Stenosis: (1) Yes Elevated Cardiac Markers: (1) Yes ST Deviation Greater than 0.5mm: (0) No RUFINA Score: 5 ED Medical Decision Making - Lab Data Result diagrams: 01/16/18 10:31 01/16/18 10:31 Lab Results 01/16/18 01/16/18 Range/Units 10:31 10:31 WBC 10.8 (4.5-11.0) K/mm3 RBC 3.93 (3.65-5.03) M/mm3 Hgb 11.7 L (11.8-15.2) gm/dl Hct 35.3 L (35.5-45.6) % MCV 90 (84-94) fl MCH 30 (28-32) pg MCHC 33 (32-34) % RDW 16.3 H (13.2-15.2) % Plt Count 105 L (140-440) K/mm3 Lymph % (Auto) 12.6 L (13.4-35.0) % [place] % (Auto) 8.2 H (0.0-7.3) % Eos % (Auto) 0.9 (0.0-4.3) % Baso % (Auto) 0.5 (0.0-1.8) % Lymph # 1.4 (1.2-5.4) K/mm3 [place] # 0.9 H (0.0-0.8) K/mm3 Eos # 0.1 (0.0-0.4) K/mm3 Baso # 0.1 (0.0-0.1) K/mm3 Seg Neutrophils % 77.8 H (40.0-70.0) % Seg Neutrophils # 8.4 H (1.8-7.7) K/mm3 Sodium 135 L (137-145) mmol/L Potassium 4.5 (3.6-5.0) mmol/L Chloride 94.5 L (98-107) mmol/L Carbon Dioxide 25 (22-30) mmol/L Anion Gap 20 mmol/L BUN 22 H (9-20) mg/dL Creatinine 5.7 H (0.8-1.5) mg/dL Estimated GFR 14 ml/min BUN/Creatinine Ratio 4 % Glucose 231 H (75-100) mg/dL Calcium 8.4 (8.4-10.2) mg/dL Troponin T 0.341 H* (0.00-0.029) ng/mL Triglycerides 300 H (2-149) mg/dL Cholesterol 175 (50-199) mg/dL LDL Cholesterol Direct 96 (50-130) mg/dL HDL Cholesterol 38 L (40-59) mg/dL Cholesterol/HDL Ratio 4.60 % - EKG Data -: EKG Interpreted by Me - EKG Data Interpretation: other (EKG shows sinus rhythm rate of 88 normal axis normal intervals. No ST segment elevations or depressions there are anterior septal Q waves present) - Radiology Data Radiology results: report reviewed no acute process - Medical Decision Making Dr. Ramirez's was consulted to see the patient regarding his chest pain. Patient was seen by Dr. Ramirez's nurse practitioner who did a full H&P. It was deemed that the patient's troponin was chronically elevated and not consistent with a non-STEMI. Dr. Ramirez established that the patient is having some musculoskeletal pain. Patient has had no injuries however again his troponin is chronically elevated and is actually lower than his norm and his delta is not greater than 50%. Patient's pain was only with palpation at the time of his discharge and he will be discharged home following Dr. Ramirez's cardiology. Critical care attestation.: If time is entered above; I have spent that time in minutes in the direct care of this critically ill patient, excluding procedure time. ED Disposition Clinical Impression: Chest pain Qualifiers: Chest pain type: unspecified Qualified Code(s): R07.9 - Chest pain, unspecified HTN (hypertension) Qualifiers: Hypertension type: essential hypertension Qualified Code(s): I10 - Essential ( primary) hypertension Disposition: TO HOME OR SELFCARE Is pt being admited?: No Does the pt Need Aspirin: No Condition: Stable Instructions: Chest Pain (ED), Hypertension (ED) Prescriptions: HYDROcodone/APAP 5-325 [[place] 5/325] 1 each PO Q6HR PRN #10 tablet PRN Reason: Pain Referrals: TAYLOR CAVAZOS MD [Staff Physician] - 3-5 Days
--- NOTE | 2018-01-16 15:12 | Cat Scan Report ---
FINAL REPORT EXAM: CT HEAD/BRAIN WO CON HISTORY: headache, hypertensive TECHNIQUE: CT of the Head without IV contrast. PRIORS: None currently available. FINDINGS: There is no evidence for acute ischemia. There is no hemorrhage. There is no midline shift. There is no hydrocephalus. There is no mass. Age appropriate mckeon-white matter attenuation is noted. There is no calvarial fracture. The temporal bones demonstrate aerated mastoid air cells. The middle ears appear unremarkable. Paranasal sinuses are unremarkable. Globes are intact. IMPRESSION: No acute intracranial findings.
--- NOTE | 2018-01-16 15:14 | XRay Report ---
ROUTINE CHEST, TWO VIEWS: HISTORY: chest pain. Compared to 08/14/17. Minor linear atelectasis has developed in the lower lung zones since the previous exam. There is no evidence for pneumonia, pleural effusion or pneumothorax. Heart and mediastinal structures are within normal limits. The bony structures are grossly intact. IMPRESSION: No acute cardiopulmonary process.
[2018-01-16] MEDS ORDERED: ASPIRIN ONE (16:08)
[2018-01-16 16:30] VITALS: BP 159/101
== END 2018-01-16 16:42 | disposition home or self-care (01) ==
LOC: ED 10:06
DX: R07.9 Chest pain, unspecified (principal); R51 Headache; I10 Essential (primary) hypertension; I25.2 Old myocardial infarction; E11.9 Type 2 diabetes mellitus without complications
CPT/HCPCS: 36415; 70450; 71046; 80048; 80061; 84484; 85025; 93005; 93010; 99285; J2270; J2405

== ENCOUNTER 2018-01-24 06:03 | Day surgery (SDC) | payer OTHER, MEDICARE ==
[2018-01-24] MEDS ORDERED: NACL BACTERIOSTATIC INFILTRATI ONE (06:46)
[2018-01-24] MEDS ORDERED: PROTAMINE SULFATE ONE (07:19)
[2018-01-24] MEDS ORDERED: MARCAINE 0.5% INFILTRATI ONE ×4 (07:19→17:26)
[2018-01-24] MEDS ORDERED: HEPARIN 10,000 UNITS/10 ML ONE (07:19)
[2018-01-24 07:20] LABS: Hematocrit 36.4 % (35.5-45.6); Hemoglobin 11.3 gm/dl (11.8-15.2); Mean Corpuscular HGB Conc 31 % (32-34); Mean Corpuscular Hemoglobin 30 pg (28-32); Mean Corpuscular Volume 95 fl (84-94); Platelet Count 121 K/mm3 (140-440); Red Blood Count 3.82 M/mm3 (3.65-5.03); Red Cell Distribution Width 16.4 % (13.2-15.2)
[2018-01-24] MEDS ORDERED: NACL 0.9% 250ML 250 ML ONE (07:20)
--- NOTE | 2018-01-24 07:20 | Anesthesia Day of Surgery ---
Anesthesia Day of Surgery - Day of Surgery Patient Examined: Yes Patient H&P Reviewed: Yes Patient is NPO: Yes
--- NOTE | 2018-01-24 07:20 | Anesthesia Consultation ---
Anesthesia Consult and Med Hx Date of service: 01/24/18 - Airway Anesthetic Teeth Evaluation: Good ROM Head & Neck: Adequate Mental/Hyoid Distance: Adequate Mallampati Class: Class II Intubation Access Assessment: Probably Good - Pre-Operative Health Status ASA Pre-Surgery Classification: ASA3 Proposed Anesthetic Plan: General - Cardiovascular System Hx Hypertension: Yes Hx Coronary Artery Disease: Yes Hx Heart Attack/AMI: Yes (2014) Hx Angina: Yes Hx Peripheral Vascular Disease: Yes - Central Nervous System Hx Seizures: No CVA: Yes (2015-no residual ) Hx Psychiatric Problems: No - Endocrine Hx End Stage Renal Disease: Yes Hx Liver Disease: No Hx Insulin Dependent Diabetes: Yes - Hematic Hx Anemia: Yes - Other Systems Hx Cancer: No Hx Obesity: Yes (BMI 32.0)
[2018-01-24] MEDS ORDERED: RIFADIN ONE (07:28)
[2018-01-24 07:33] LABS: Calcium 8.8 mg/dL (8.4-10.2)
[2018-01-24] MEDS ORDERED: DIPRIVAN 10 MG/ML IV ONE (07:47)
[2018-01-24] MEDS ORDERED: VERSED IV NR (08:00)
[2018-01-24] MEDS ORDERED: PEPCID IV NR (08:00)
[2018-01-24] MEDS ORDERED: BENADRYL PO NR (08:00)
[2018-01-24] MEDS ORDERED: NACL 0.9% IR ONE (09:20)
[2018-01-24] MEDS ORDERED: HEPARIN 10,000 UNITS/10 ML 1,000 UNIT in NACL 0.9% 250ML 250 ML IR ONE (09:21)
[2018-01-24] MEDS ORDERED: RIFADIN 600 MG in NACL 0.9% 50 ML IR ONE (09:21)
[2018-01-24] MEDS ORDERED: XYLOCAINE MPF 2% ONE (10:02)
[2018-01-24] MEDS ORDERED: NEO SYNEPHRINE/NS Syringe(OR USE) IV ONE ×2 (10:02)
--- NOTE | 2018-01-24 11:18 | Short Stay Summary ---
Short Stay Documentation Date of service: 01/24/18 Narrative H&P: See H&P - History H&P: obtained from office - Allergies and Medications Current Medications: Allergies iodine Allergy (Severe, Verified 01/23/18 18:23) Vomiting shellfish derived Allergy (Verified 01/23/18 18:31) Anaphylaxis IV dye Allergy (Severe, Uncoded 01/23/18 18:23) Vomiting Home Medications Medication Instructions Recorded Confirmed Last Taken Type Vit B Comp C/Folic Acid/Vit D3 1 each PO QDAY 01/10/17 01/24/18 01/23/18 History [Dialyvite 800 Plus D Wafer] Clonidine HCl [Catapres] 0.3 mg PO BID 01/23/18 01/24/18 01/24/18 03:30 History Insulin Aspart [NovoLOG Flexpen] 6 - 15 unit SQ AC 01/23/18 01/24/18 01/23/18 History Insulin Glargine [Lantus VIAL] 30 units SQ QHS 01/23/18 01/24/18 01/23/18 History Linaclotide (Nf) [Linzess (Nf)] 290 mcg PO QDAY 01/23/18 01/24/18 01/23/18 History Active Medications Hydromorphone HCl (Dilaudid) 0.25 mg IV Q10MIN PRN PRN Reason: Pain, Moderate (4-6) Stop: 01/24/18 12:00 Cefazolin Sodium (Ancef/Sterile Water 2 Gm/20 Ml) 2 gm in 20 mls @ 80 mls/hr IV PREOP NR; Protocol Stop: 01/24/18 23:59 Sodium Chloride (Nacl 0.9% 1000 Ml) 1,000 mls @ 42 mls/hr IV DIRECT SANDRINE Last Admin: 01/24/18 06:50 Dose: 42 mls/hr Midazolam HCl (Versed) 2 mg IV PREOP NR Stop: 01/24/18 23:59 Last Admin: 01/24/18 08:12 Dose: 2 mg - Brief post op/procedure progress note Date of procedure: 01/24/18 Pre-op diagnosis: Complications of Dialysis Access Post-op diagnosis: same Procedure: 1. Creation of Right Brachial to Right axillary vein AV Graft with 4-7 Step Accuseal (Immediate Access Graft) 2. Ligation of Existing Right AV Graft 3. Open Thrombectomy of Right Axillary Vein with 6 Graham Anesthesia: GETA Surgeon: MARIFER BRANDON Estimated blood loss: 50-100ml Pathology: list (right axillary thrombus) Specimen disposition: to lab, discarded - Disposition Condition at discharge: Good Disposition: DC-01 TO HOME OR SELFCARE Short Stay Discharge Plan Activity: other (no heavy lifting with right arm) Wound: open to air, keep clean and dry, other (okay to wash the wound with soap and water but do not soak in water) Special Instructions: other (okay to access the right arm AV graft on dialysis starting tomorrow 01/25/2018) Follow up with: MARIFER BRANDON MD [Staff Physician] - 14 Days Prescriptions: HYDROcodone/APAP 7.5-325 [[place] 7.5/325] 1 each PO Q6HR PRN #40 tablet PRN Reason: Pain
--- NOTE | 2018-01-24 11:22 | Operative Report ---
Operative Report Operative Report: Date of procedure: 01/24/2018 Pre-operative diagnosis: Complications of Dialysis Access Post-operative diagnosis: Same Procedure(s): 1. Creation of right Brachial Artery to Axillary Vein AV Graft with 4-7 mm Step Accuseal (Immediate Access) Graft 2. Ligation of Existing Right AV Graft 3. Open Thrombectomy of Right Axillary Vein with 6 Graham Surgeon: Mika Escalante MD [employer] Professor: None Anesthesia: General Endotracheal Anesthesia EBL: Minimal Counts: Correct Complications: None Condition: Stable Findings: Successful Creation of Right Arm AV Graft Specimen: None Indication: The patient is a 37-year-old male with history of end-stage renal disease who is currently on hemodialysis to a right arm AV graft. Since creation of the graft he is requiring multiple endovascular interventions to maintain patency of the graft including stenting of the central venous system as well as the midportion of the graft. The stent in the graft has caused significant difficulty with accessing the graft and is now felt that he would benefit from revision versus creation of a new AV graft. He was offered both and has decided to have creation of a new AV graft. He was given the risk, benefits, and alternative procedures and consented to the procedure. Description of Procedure: The patient was brought to the operating room and laid in supine position after general endotracheal anesthesia was achieved the right arm was prepped and draped in normal sterile fashion. A longitudinal incision was made on the medial aspect of the arm just proximal to the antecubital crease and carried down to the brachial artery using sharp dissection. The brachial artery was dissected out circumferentially both proximally and distally and controlled with vessel loops. A second incision was created in longitudinal fashion on the medial aspect of the arm just distal to the axillary crease and carried down to the axillary vein using sharp dissection. Axillary vein was dissected out circumferentially and controlled with a vessel loop. I then used a Joy- Wick tunneler to tunnel from the brachial artery incision to the axillary vein incision and then pulled the graft through the tunnel with the 4 mm portion at the brachial artery. I infused with heparinized saline to ensure that it was not twisted or kinked. I put the brachial artery vessel loops on tension controlling the flow and then created an arteriotomy using an 11 blade and Pruitt scissors. I beveled the graft and created an end-to-side anastomosis using 6-0 Prolene running fashion. I clamped the graft just proximal to the anastomosis and then released the vessel loops restoring flow in the brachial artery. I placed quick clot in incision to achieve hemostasis. I cut the proximal end of the graft to the appropriate length and beveled the graft in preparation for a venous anastomosis. I controlled the axillary vein a Satinsky clamp and created a venotomy using an 11 blade and Pruitt scissors. I created an end to side anastomosis using a 5-0 Prolene in running fashion. Prior to completing the anastomosis I flushed the graft to ensure there was no thrombus within the graft. Upon releasing the Satinsky clamp and noted no backbleeding so I passed a 6 Graham into the axillary vein which had a previous stent and retrieved a significant amount of thrombus. I made several passes until there was no residual thrombus and there was significant backbleeding. I then flushed the vein with heparinized saline and then completed the anastomosis. I released all clamps allowing flow into the AV graft which had an excellent thrill. I made incisions over the arterial inflow as well as venous outflow of the previous AV graft and used a right angle to bluntly dissect around the graft. I used the 0 silk to ligate the arterial and venous outflow. I packed the wounds with quick clot to achieve hemostasis. I anesthetized all wounds with Marcaine and then closed the wounds in 2 layers using 3-0 Vicryl in running fashion in the deep dermal layer and 4-0 Monocryl in running fashion the subcuticular layer. I dressed both wounds with Surgicel. The patient tolerated the procedure well all sponge needle and instrument counts were correct the patient was taken to recovery in stable condition.
[2018-01-24] MEDS ORDERED: ZOFRAN ONE (11:30)
[2018-01-24] MEDS: DILAUDID IV PRN ×4 (11:35→12:00)
[2018-01-24 11:49] LABS: Basophils % (Manual) 0 % (0.0-1.8); Macrocytosis 1+; Platelet Estimate Consistent w Auto; Total Cells Counted 100
[2018-01-24] MEDS ORDERED: NORCO 7.5/325 PO ONE (12:30)
[2018-01-24 13:57] VITALS: BP 120/80
--- NOTE | 2018-01-24 16:17 | Post Anesthesia Evaluation ---
- Post Anesthesia Evaluation Patient Participated: Yes Airway Patent: Yes Stable Respiratory Function: Yes Nausea/Vomiting: No Temp > 96.8F: Yes Pain Manageable: Yes Adequeate Hydration: Yes Anesthesia Complications: No
== END 2018-01-24 13:30 | disposition home or self-care (01) ==
LOC: OR 06:03
PROVIDERS: ATTEND Surgery Vascular Surgery
DX: T82.590A Other mechanical complication of surgically created arteriovenous fistula, initial encounter (principal); E11.22 Type 2 diabetes mellitus with diabetic chronic kidney disease; I12.0 Hypertensive chronic kidney disease with stage 5 chronic kidney disease or end stage renal disease; N18.6 End stage renal disease; I25.10 Atherosclerotic heart disease of native coronary artery without angina pectoris; I25.2 Old myocardial infarction; Z86.73 Personal history of transient ischemic attack (TIA), and cerebral infarction without residual deficits; E66.9 Obesity, unspecified; Z68.32 Body mass index [BMI] 32.0-32.9, adult; Z91.013 Allergy to seafood; Z91.048 Other nonmedicinal substance allergy status; Y83.2 Surgical operation with anastomosis, bypass or graft as the cause of abnormal reaction of the patient, or of later complication, without mention of misadventure at the time of the procedure
CPT/HCPCS: 36415; 36830; 37607; 80048; 82962; 85007; 85025; C1757; C1768; J0690; J1170; J1644; J2250; J2370; J2405; J2704; J3490; J7030; J7050; J2720

== ENCOUNTER 2018-02-01 19:00 | Inpatient (IN) | payer OTHER, MEDICARE ==
[2018-02-01] MEDS ORDERED: TYLENOL PO ONE (20:03)
[2018-02-01] MEDS ORDERED: DILAUDID IV ONE ×2 (20:03→21:27)
[2018-02-01] MEDS ORDERED: ZOFRAN IV ONE (20:03)
[2018-02-01 20:18] LABS: Basophils # (Auto) 0.1 K/mm3 (0.0-0.1); Basophils % (Auto) 0.6 % (0.0-1.8); Eosinophils # (Auto) 0.2 K/mm3 (0.0-0.4); Eosinophils % (Auto) 1.4 % (0.0-4.3); Hematocrit 35.5 % (35.5-45.6); Hemoglobin 11.5 gm/dl (11.8-15.2); Lymphocytes # (Auto) 2.4 K/mm3 (1.2-5.4); Lymphocytes % (Auto) 16.9 % (13.4-35.0); Mean Corpuscular HGB Conc 32 % (32-34); Mean Corpuscular Hemoglobin 29 pg (28-32); Mean Corpuscular Volume 90 fl (84-94); Monocytes # (Auto) 0.7 K/mm3 (0.0-0.8); Monocytes % (Auto) 5.1 % (0.0-7.3); Platelet Count 260 K/mm3 (140-440); Red Blood Count 3.95 M/mm3 (3.65-5.03); Red Cell Distribution Width 15.1 % (13.2-15.2)
[2018-02-01 20:45] LABS: INR 1.07 (0.87-1.13)
[2018-02-01 20:55] LABS: Calcium 9.3 mg/dL (8.4-10.2)
[2018-02-01 20:57] LABS: Chol/HDL Ratio 5.38 %
--- NOTE | 2018-02-01 21:26 | Cat Scan Report ---
FINAL REPORT PROCEDURE: CT ABDOMEN PELVIS WO CON TECHNIQUE: Computerized axial tomography of the abdomen and pelvis was performed without intravenous contrast. This study is performed without intravascular contrast material and its sensitivity for abdominal and pelvic pathology, including neoplasms, inflammation, abscess, free fluid, thrombosis, arterial dissection and infarction, is reduced compared with a contrast enhanced study. HISTORY: llq pain, n,v rigors COMPARISON: No prior studies are available for comparison. FINDINGS: Liver, spleen, pancreas and adrenal glands are within normal limits. Bilateral kidneys demonstrate normal density without calculi or hydronephrosis. Aorta is of normal caliber. There is no free fluid or free air. Gallbladder is unremarkable. Small bowel loops are within normal limits. Moderate degree residual stool is noted. Appendix is normal. Vertebral height is within normal limits. IMPRESSION: No acute intra-abdominal or pelvic pathology..
[2018-02-01] MEDS ORDERED: CATAPRES PO ONE (21:27)
[2018-02-01] MEDS ORDERED: REGLAN IV ONE (21:28)
[2018-02-01] MEDS ORDERED: BENADRYL IV ONE (21:28)
--- NOTE | 2018-02-01 21:48 | XRay Report ---
FINAL REPORT EXAM: XR CHEST 1V AP HISTORY: Chest Pain TECHNIQUE: AP portable view of the chest PRIORS: None. FINDINGS: Lines, tubes, and devices: N/A Lungs and pleura: Trachea is normal in position. Lungs are clear of infiltrate, pleural effusion, vascular congestion, or pneumothorax. Cardiomediastinal silhouette: Cardiac and mediastinal silhouettes are unremarkable. Other: Bony structures are intact. An endovascular stent graft is present in the right axillary region. IMPRESSION: No acute cardiopulmonary process seen.
--- NOTE | 2018-02-01 22:42 | Emergency Department Report ---
ED Chest Pain HPI - General Chief Complaint: Chest Pain Stated Complaint: CHEST PAIN/ N/V Time Seen by Provider: 02/01/18 19:52 Source: patient, EMS Mode of arrival: Stretcher Limitations: No Limitations - History of Present Illness Initial Comments: 37-year-old male with past medical history of TIAs, CAD, hypertension, end- stage renal dz m-w-f, and gastroparesis presents to the hospital with complaints of chest pain, abdominal pain, nausea, vomiting, and chills. Patient has had vomiting with poor by mouth tolerance for the past 2 days with intermittent sweats and chills. Severity scale (0 -10): 0 - Related Data Home Medications Medication Instructions Recorded Confirmed Last Taken Vit B Comp C/Folic Acid/Vit D3 1 each PO QDAY 01/10/17 01/24/18 01/23/18 [Dialyvite 800 Plus D Wafer] Clonidine HCl [Catapres] 0.3 mg PO BID 01/23/18 01/24/18 01/24/18 03:30 Insulin Aspart [NovoLOG Flexpen] 6 - 15 unit SQ AC 01/23/18 01/24/18 01/23/18 Insulin Glargine [Lantus VIAL] 30 units SQ QHS 01/23/18 01/24/18 01/23/18 Linaclotide (Nf) [Linzess (Nf)] 290 mcg PO QDAY 01/23/18 01/24/18 01/23/18 Previous Rx's Medication Instructions Recorded Last Taken Type HYDROcodone/APAP 7.5-325 [[place] 1 each PO Q6HR PRN #40 tablet 01/24/18 Unknown Rx 7.5/325] Allergies Allergy/AdvReac Type Severity Reaction Status Date / Time iodine Allergy Severe Vomiting Verified 01/23/18 18:23 shellfish derived Allergy Anaphylaxis Verified 01/23/18 18:31 IV dye Allergy Severe Vomiting Uncoded 01/23/18 18:23 Heart Score - HEART Score History: Slightly suspicious EKG: Non-specific Age: < 45 Risk factors: 1-2 risk factors Troponin: 1-3x normal limit HEART Score: 3 ED Review of Systems ROS: Stated complaint: CHEST PAIN/ N/V Other details as noted in HPI ED Past Medical Hx - Past Medical History Previous Medical History?: Yes Hx Hypertension: Yes (Coreg ) Hx CVA: Yes (TIA's) Hx Heart Attack/AMI: Yes Hx Congestive Heart Failure: No Hx Diabetes: Yes Hx Deep Vein Thrombosis: No Hx Pulmonary Embolism: No Hx GERD: No Hx Liver Disease: No Hx Renal Disease: Yes (M-W-F) Hx Sickle Cell Disease: No Hx Arthritis: No Hx Headaches / Migraines: No Hx Seizures: No Hx Kidney Stones: No Hx Psychiatric Treatment: No Hx Asthma: No Hx COPD: No Hx Tuberculosis: No Hx Dementia: No Hx HIV: No Additional medical history: gastroparesis - Surgical History Past Surgical History?: Yes Hx Coronary Stent: No Hx Open Heart Surgery: No Hx Pacemaker: No Hx Internal Defibrillator: No Hx Cholecystectomy: No Hx Appendectomy: No Hx Breast Surgery: No Additional Surgical History: left eye surgery, right toe amputation, right chest vas cath. GRAFT RIGHT UPPER ARM - Social History Smoking Status: Never Smoker - Medications Home Medications: Home Medications Medication Instructions Recorded Confirmed Last Taken Type Vit B Comp C/Folic Acid/Vit D3 1 each PO QDAY 01/10/17 01/24/18 01/23/18 History [Dialyvite 800 Plus D Wafer] Clonidine HCl [Catapres] 0.3 mg PO BID 01/23/18 01/24/18 01/24/18 03:30 History Insulin Aspart [NovoLOG Flexpen] 6 - 15 unit SQ AC 01/23/18 01/24/18 01/23/18 History Insulin Glargine [Lantus VIAL] 30 units SQ QHS 01/23/18 01/24/18 01/23/18 History Linaclotide (Nf) [Linzess (Nf)] 290 mcg PO QDAY 01/23/18 01/24/18 01/23/18 History HYDROcodone/APAP 7.5-325 [[place] 1 each PO Q6HR PRN #40 tablet 01/24/18 Unknown Rx 7.5/325] ED Physical Exam - General Limitations: No Limitations - Other Other exam information: General: Mild distress Head exam: Atraumatic, normocephalic Eyes exam: Normal appearance, pupils equal reactive to light, ENT: Moist mucous membrane, normal oropharynx Neck exam: Normal inspection, full range of motion, no meningismus nontender Respiratory exam: Clear to auscultation bilateral, no wheezes, rales, crackles Cardiovascular: Normal rate and rhythm Abdomen: Soft, nondistended, left lower quadrant tenderness, no lower bowel sounds, no rebound or guarding Extremity: Full range of motion normal inspection no deformity Back: Normal Inspection, full range of motion, no tenderness Neurologic: Alert, oriented x3, cranial nerves intact, no motor or sensory deficit Psychiatric: normal affect, normal mood Skin: Positive diaphoresis ED Course Vital Signs 02/01/18 02/01/18 02/01/18 19:13 19:16 19:25 Temperature 99 F Pulse Rate 101 H Respiratory 21 Rate Blood Pressure 186/99 186/99 186/99 Blood Pressure [Left] O2 Sat by Pulse 100 100 100 Oximetry 02/01/18 02/01/18 02/01/18 19:30 19:32 19:45 Temperature 99 F Pulse Rate 93 H 101 H 96 H Respiratory 16 21 13 Rate Blood Pressure 186/99 196/115 Blood Pressure 186/99 [Left] O2 Sat by Pulse 100 100 100 Oximetry 02/01/18 02/01/18 02/01/18 20:00 20:19 20:31 Temperature Pulse Rate 102 H Respiratory 18 20 Rate Blood Pressure 196/115 186/99 Blood Pressure [Left] O2 Sat by Pulse 100 100 Oximetry 02/01/18 02/01/18 02/01/18 20:45 20:49 21:00 Temperature Pulse Rate 99 H 94 H Respiratory 15 18 15 Rate Blood Pressure 172/104 159/105 Blood Pressure [Left] O2 Sat by Pulse 100 100 Oximetry 02/01/18 02/01/18 02/01/18 21:15 21:20 21:30 Temperature Pulse Rate 97 H 93 H 96 H Respiratory 16 19 Rate Blood Pressure 163/108 218/120 Blood Pressure [Left] O2 Sat by Pulse 99 100 Oximetry 02/01/18 02/01/18 02/01/18 21:42 21:45 22:00 Temperature Pulse Rate 101 H 99 H Respiratory 18 15 10 L Rate Blood Pressure 157/103 143/101 Blood Pressure [Left] O2 Sat by Pulse 97 98 Oximetry - Reevaluation(s) Reevaluation #1: 02/01/18 22:49 After receiving Dilaudid 1 mg 2, Zofran, Benadryl, Reglan and appears to have vomiting has improved with patient states his pain is unchanged - Consultations Consultation #1: 02/01/18 22:[address] Gomez, pt will be addmitted. Vancomycine 1 mg x 1 ordered. will consult RUFINA score - Rufina Score Age > 65: (0) No Aspirin use within the Past 7 Days: (1) Yes 3 or more CAD Risk Factors: (1) Yes 2 or more Angina events in past 24 hrs: (1) Yes Known CAD with more than 50% Stenosis: (1) Yes Elevated Cardiac Markers: (1) Yes ST Deviation Greater than 0.5mm: (0) No RUFINA Score: 5 ED Medical Decision Making - Lab Data Result diagrams: 02/01/18 20:09 02/01/18 20:10 Lab Results 02/01/18 02/01/18 02/01/18 Range/Units 20:09 20:09 20:10 WBC 13.9 H (4.5-11.0) K/mm3 RBC 3.95 (3.65-5.03) M/mm3 Hgb 11.5 L (11.8-15.2) gm/dl Hct 35.5 (35.5-45.6) % MCV 90 (84-94) fl MCH 29 (28-32) pg MCHC 32 (32-34) % RDW 15.1 (13.2-15.2) % Plt Count 260 (140-440) K/mm3 Lymph % (Auto) 16.9 (13.4-35.0) % [place] % (Auto) 5.1 (0.0-7.3) % Eos % (Auto) 1.4 (0.0-4.3) % Baso % (Auto) 0.6 (0.0-1.8) % Lymph # 2.4 (1.2-5.4) K/mm3 [place] # 0.7 (0.0-0.8) K/mm3 Eos # 0.2 (0.0-0.4) K/mm3 Baso # 0.1 (0.0-0.1) K/mm3 Seg Neutrophils % 76.0 H (40.0-70.0) % Seg Neutrophils # 10.6 H (1.8-7.7) K/mm3 PT 14.5 (12.2-14.9) Sec. INR 1.07 (0.87-1.13) VBG pH (7.320-7.420) Sodium Cancelled Potassium Cancelled Chloride Cancelled Carbon Dioxide Cancelled Anion Gap Cancelled BUN Cancelled Creatinine Cancelled Estimated GFR Cancelled BUN/Creatinine Ratio Cancelled Glucose Cancelled Lactic Acid (0.7-2.0) mmol/L Calcium Cancelled Total Bilirubin (0.1-1.2) mg/dL AST (5-40) units/L ALT (7-56) units/L Alkaline Phosphatase (35-129) units/L Troponin T 0.741 H* (0.00-0.029) ng/mL Total Protein (6.3-8.2) g/dL Albumin (3.9-5) g/dL Albumin/Globulin Ratio % Triglycerides 191 H (2-149) mg/dL Cholesterol 183 (50-199) mg/dL HDL Cholesterol 34 L (40-59) mg/dL Cholesterol/HDL Ratio 5.38 % 02/01/18 02/01/18 02/01/18 Range/Units 20:10 20:10 20:10 WBC (4.5-11.0) K/mm3 RBC (3.65-5.03) M/mm3 Hgb (11.8-15.2) gm/dl Hct (35.5-45.6) % MCV (84-94) fl MCH (28-32) pg MCHC (32-34) % RDW (13.2-15.2) % Plt Count (140-440) K/mm3 Lymph % (Auto) (13.4-35.0) % [place] % (Auto) (0.0-7.3) % Eos % (Auto) (0.0-4.3) % Baso % (Auto) (0.0-1.8) % Lymph # (1.2-5.4) K/mm3 [place] # (0.0-0.8) K/mm3 Eos # (0.0-0.4) K/mm3 Baso # (0.0-0.1) K/mm3 Seg Neutrophils % (40.0-70.0) % Seg Neutrophils # (1.8-7.7) K/mm3 PT (12.2-14.9) Sec. INR (0.87-1.13) VBG pH 7.484 H (7.320-7.420) Sodium 136 L Potassium 4.2 Chloride 93.2 L Carbon Dioxide 27 Anion Gap 20 BUN 20 Creatinine 6.2 H Estimated GFR 12 BUN/Creatinine Ratio 3 Glucose 248 H Lactic Acid 1.90 (0.7-2.0) mmol/L Calcium 9.3 Total Bilirubin 0.30 (0.1-1.2) mg/dL AST 13 (5-40) units/L ALT 9 (7-56) units/L Alkaline Phosphatase 87 (35-129) units/L Troponin T (0.00-0.029) ng/mL Total Protein 7.5 (6.3-8.2) g/dL Albumin 4.0 (3.9-5) g/dL Albumin/Globulin Ratio 1.1 % Triglycerides (2-149) mg/dL Cholesterol (50-199) mg/dL HDL Cholesterol (40-59) mg/dL Cholesterol/HDL Ratio % - EKG Data -: EKG Interpreted by Ri EKG shows normal: sinus rhythm, axis (47), QRS complexes (79), ST-T waves (lat t inv) Rate: normal (93) - EKG Data When compared to previous EKG there are: no significant change - Radiology Data Radiology results: report reviewed Read by radiologist CT abdomen and pelvis: No acute finding Chest x-ray: No acute findings - Medical Decision Making Nausea and vomiting History of gastroparesis CT does not show any acute findings Abdominal pain and vomiting likely related to gastroparesis Continues to have pain despite narcotics. No further vomiting after treatment Sweats/chills Afebrile in the ED Mild increase in WBC count Patient states symptoms started after AV graft surgery Blood cultures pending Vancomycin ordered 1 No signs of sepsis or septic shock Chest pain Constant Atypical EKG unchanged Initial troponin elevated likely secondary to end-stage renal disease, similar to previous values. Repeat pending no acute ekg changes End-stage renal disease Compliant with dialysis Dr. Diego consulted HTN bp improved after pain meds pt did not receive clonidine - Differential Diagnosis doses, graft infection, gastroenteritis, pneumonia, AL, atypical chest pain Critical Care Time: No Critical care attestation.: If time is entered above; I have spent that time in minutes in the direct care of this critically ill patient, excluding procedure time. ED Disposition Clinical Impression: Gastroparesis due to DM, Chills, Diaphoresis, HTN (hypertension), Diabetes, ESRD (end stage renal disease) on dialysis, Elevated troponin Disposition: OP ADMIT IP TO THIS HOSP Is pt being admited?: Yes Condition: Stable Time of Disposition: 22:57 (Dr Spangler/hosp)
[2018-02-01] MEDS ORDERED: VANCOMYCIN/NS 1 GM/250 ML 1 GM/250 ML BAG IV SCH (23:00)
[2018-02-01] MEDS ORDERED: VANCOMYCIN PHARMACY TO DOSE IV SCH (23:00)
[2018-02-01] MEDS ORDERED: VANCOMYCIN 2,000 MG in NACL 0.9% 500 ML 500 ML IV ONE (23:00)
[2018-02-01] MEDS ORDERED: VANCOMYCIN 1,750 MG in NACL 0.9% 500 ML 500 ML IV ONE (23:15)
--- NOTE | 2018-02-01 23:30 | History and Physical Report ---
History of Present Illness Date of examination: 02/01/18 History of present illness: 37-year-old man with a history of end-stage renal disease on dialysis, hypertension, diabetes comes emergency room with complaints of chest pain 2 days located in the epigastric area which she describes a pressure-like sensation, constant, intensity 7 attending no radiation, Asad identified exacerbating or relieving factors. Admits to nausea vomiting, shortness of breath, no diaphoresis or palpitation. Also complains of feeling lightheaded, chills started yesterday. status post repair of his graft PAST MEDICAL HISTORY: End-stage renal disease on dialysis, hypertension, diabetes PAST SURGICAL HISTORY: AV graft SOCIAL HISTORY: Denies alcohol, tobacco, drugs FAMILY HISTORY: Hypertension, diabetes Medications and Allergies Allergies Allergy/AdvReac Type Severity Reaction Status Date / Time iodine Allergy Severe Vomiting Verified 01/23/18 18:23 shellfish derived Allergy Anaphylaxis Verified 01/23/18 18:31 IV dye Allergy Severe Vomiting Uncoded 01/23/18 18:23 Home Medications Medication Instructions Recorded Confirmed Last Taken Type Vit B Comp C/Folic Acid/Vit D3 1 each PO QDAY 01/10/17 01/24/18 01/23/18 History [Dialyvite 800 Plus D Wafer] Clonidine HCl [Catapres] 0.3 mg PO BID 01/23/18 01/24/18 01/24/18 03:30 History Insulin Aspart [NovoLOG Flexpen] 6 - 15 unit SQ AC 01/23/18 01/24/18 01/23/18 History Insulin Glargine [Lantus VIAL] 30 units SQ QHS 01/23/18 01/24/18 01/23/18 History Linaclotide (Nf) [Linzess (Nf)] 290 mcg PO QDAY 01/23/18 01/24/18 01/23/18 History HYDROcodone/APAP 7.5-325 [[place] 1 each PO Q6HR PRN #40 tablet 01/24/18 Unknown Rx 7.5/325] Active Meds: Active Medications Vancomycin HCl 1,750 mg/ (Sodium Chloride) 517.5 mls @ 333.333 mls/hr IV ONCE.ED ONE Stop: 02/02/18 00:48 Last Admin: 02/01/18 23:28 Dose: 333.333 mls/hr Vancomycin HCl (Vancomycin Pharmacy To Dose) 1 each IV PKCONSULT SANDRINE Exam - Physical Exam Narrative exam: Gen. appearance: Patient lying in bed, no apparent distress HEENT: Normocephalic, atraumatic, pupils equally round and reactive to light, extraocular movement intact, and no sclericterus,. No JVD or thyromegaly or nodule,neck supple, no carotid bruit ,mucous membranes moist, no exudate or erythema Heart: S1, S2, regular rate and rhythm Lungs: Clear to auscultation bilaterally, breathing comfortable Abdomen: Positive bowel sounds, nontender, nondistended, no organomegaly Extremity: No edema, cyanosis, clubbing Skin: No rash, nodules, warm, dry Neuro: Oriented 3, cranial nerves II-12 intact, speech is fluent, motor and sensory intact - Constitutional Vitals: Temp Pulse Resp BP Pulse Ox 99 F 96 H 14 146/93 98 02/01/18 19:32 02/01/18 22:45 02/01/18 22:45 02/01/18 22:45 02/01/18 22:45 Results - Labs CBC & Chem 7: 02/01/18 20:09 02/01/18 20:10 Labs: Abnormal lab results 02/01/18 02/01/18 02/01/18 Range/Units 20:09 20:09 20:10 WBC 13.9 H (4.5-11.0) K/mm3 Hgb 11.5 L (11.8-15.2) gm/dl Seg Neutrophils % 76.0 H (40.0-70.0) % Seg Neutrophils # 10.6 H (1.8-7.7) K/mm3 VBG pH (7.320-7.420) Sodium 136 L (137-145) mmol/L Chloride 93.2 L (98-107) mmol/L Creatinine 6.2 H (0.8-1.5) mg/dL Glucose 248 H (75-100) mg/dL Troponin T 0.741 H* (0.00-0.029) ng/mL Triglycerides 191 H (2-149) mg/dL HDL Cholesterol 34 L (40-59) mg/dL 02/01/18 Range/Units 20:10 WBC (4.5-11.0) K/mm3 Hgb (11.8-15.2) gm/dl Seg Neutrophils % (40.0-70.0) % Seg Neutrophils # (1.8-7.7) K/mm3 VBG pH 7.484 H (7.320-7.420) Sodium (137-145) mmol/L Chloride (98-107) mmol/L Creatinine (0.8-1.5) mg/dL Glucose (75-100) mg/dL Troponin T (0.00-0.029) ng/mL Triglycerides (2-149) mg/dL HDL Cholesterol (40-59) mg/dL Assessment and Plan Assessment SIRS Chest pain Hypertension uncontrolled Diabetes End-stage renal disease on dialysis Plan Admit to medicine Start empiric IV Zosyn, follow cultures, status post vancomycin Cardiac enzymes, consult cardiology Check fingersticks and initiate insulin sliding scale Consult renal for dialysis IV hydralazine as needed for blood pressure control DVT prophylaxis
[2018-02-02] MEDS ORDERED: APRESOLINE IV ONE (04:38)
[2018-02-02] MEDS ORDERED: APRESOLINE IV PRN (04:38)
[2018-02-02] MEDS ORDERED: TYLENOL PO PRN (04:39)
[2018-02-02] MEDS ORDERED: SODIUM CHLORIDE FLUSH SYRINGE 10 ML IV PRN (04:39)
[2018-02-02] MEDS: ZOFRAN IV PRN ×2 (05:39→10:46)
[2018-02-02] MEDS ORDERED: ZOSYN/NS 2.25 GM/50ML 2.25 GM/50 ML BAG IV SCH (06:00)
[2018-02-02 09:30] LABS: Basophils # (Auto) 0.1 K/mm3 (0.0-0.1); Basophils % (Auto) 0.7 % (0.0-1.8); Eosinophils # (Auto) 0.1 K/mm3 (0.0-0.4); Eosinophils % (Auto) 0.8 % (0.0-4.3); Hematocrit 32.4 % (35.5-45.6); Hemoglobin 10.3 gm/dl (11.8-15.2); Lymphocytes % (Auto) 7.7 % (13.4-35.0); Mean Corpuscular HGB Conc 32 % (32-34); Mean Corpuscular Hemoglobin 29 pg (28-32); Mean Corpuscular Volume 92 fl (84-94); Monocytes # (Auto) 0.7 K/mm3 (0.0-0.8); Monocytes % (Auto) 5.4 % (0.0-7.3); Platelet Count 237 K/mm3 (140-440); Red Blood Count 3.52 M/mm3 (3.65-5.03); Red Cell Distribution Width 15.1 % (13.2-15.2)
[2018-02-02 09:53] LABS: Creatine Kinase MB 9.7 ng/mL (0.0-4.0)
[2018-02-02] MEDS ORDERED: NON-FORMULARY (Linaclotide (Nf) 290 MCG) PO SCH (10:00)
[2018-02-02] MEDS: LOVENOX SUB-Q SCH ×2 (10:45→12:12)
[2018-02-02] MEDS: MORPHINE IV PRN ×2 (10:45→14:57)
[2018-02-02] MEDS: Renal Caps PO SCH (10:46)
[2018-02-02] MEDS: CATAPRES PO SCH ×6 (10:46→22:30)
[2018-02-02] MEDS: SODIUM CHLORIDE FLUSH SYRINGE 10 ML IV SCH ×2 (10:49→22:30)
--- NOTE | 2018-02-02 11:44 | Consultation ---
History of Present Illness - Reason for Consult Consult date: 02/02/18 (pt was seen and examined. Consult dictated) Medications and Allergies Allergies Allergy/AdvReac Type Severity Reaction Status Date / Time iodine Allergy Severe Vomiting Verified 01/23/18 18:23 shellfish derived Allergy Anaphylaxis Verified 01/23/18 18:31 IV dye Allergy Severe Vomiting Uncoded 01/23/18 18:23 Home Medications Medication Instructions Recorded Confirmed Last Taken Type Vit B Comp C/Folic Acid/Vit D3 1 each PO QDAY 01/10/17 01/24/18 01/23/18 History [Dialyvite 800 Plus D Wafer] Clonidine HCl [Catapres] 0.3 mg PO BID 01/23/18 01/24/18 01/24/18 03:30 History Insulin Aspart [NovoLOG Flexpen] 6 - 15 unit SQ AC 01/23/18 01/24/18 01/23/18 History Insulin Glargine [Lantus VIAL] 30 units SQ QHS 01/23/18 01/24/18 01/23/18 History Linaclotide (Nf) [Linzess (Nf)] 290 mcg PO QDAY 01/23/18 01/24/18 01/23/18 History HYDROcodone/APAP 7.5-325 [[place] 1 each PO Q6HR PRN #40 tablet 01/24/18 Unknown Rx 7.5/325] Active Meds: Active Medications Acetaminophen (Tylenol) 650 mg PO Q4H PRN PRN Reason: Pain MILD(1-3)/Fever >100.5/SOARES Clonidine HCl (Catapres) 0.2 mg PO BID [facility] Last Admin: 02/02/18 10:46 Dose: 0.2 mg Clonidine HCl (Catapres) 0.1 mg PO BID [facility] Last Admin: 02/02/18 10:47 Dose: 0.1 mg Enoxaparin Sodium (Lovenox) 30 mg SUB-Q QDAY [facility] Last Admin: 02/02/18 10:45 Dose: 30 mg Hydralazine HCl (Apresoline) 5 mg IV Q6H PRN PRN Reason: Hypertension Insulin Glargine (Lantus) 30 units SUB-Q QHS [facility] Miscellaneous Medication (Linaclotide (Nf)) 290 mcg PO QDAY [facility] Morphine Sulfate (Morphine) 2 mg IV Q4H PRN PRN Reason: Pain, Moderate (4-6) Last Admin: 02/02/18 10:45 Dose: 2 mg Multivit/Ca Carb/B Cmplx/FA/Prenat (Renal Caps) 1 cap PO QDAY [facility] Last Admin: 02/02/18 10:46 Dose: 1 cap Ondansetron HCl (Zofran) 4 mg IV Q8H PRN PRN Reason: Nausea And Vomiting Last Admin: 02/02/18 10:46 Dose: 4 mg Sodium Chloride (Sodium Chloride Flush Syringe 10 Ml) 10 ml IV BID [facility] Last Admin: 02/02/18 10:49 Dose: 10 ml Sodium Chloride (Sodium Chloride Flush Syringe 10 Ml) 10 ml IV PRN PRN PRN Reason: LINE FLUSH Exam - Constitutional Vitals: Temp Pulse Resp BP Pulse Ox 98.7 F 96 H 18 206/118 99 02/02/18 09:00 02/02/18 09:00 02/02/18 09:00 02/02/18 09:00 02/02/18 08:26 Results - Labs CBC & Chem 7: 02/02/18 08:41 02/01/18 20:10 Labs: Abnormal lab results 02/01/18 02/01/18 02/01/18 Range/Units 20:09 20:09 20:10 WBC 13.9 H (4.5-11.0) K/mm3 RBC (3.65-5.03) M/mm3 Hgb 11.5 L (11.8-15.2) gm/dl Hct (35.5-45.6) % Lymph % (Auto) (13.4-35.0) % Lymph # (1.2-5.4) K/mm3 Seg Neutrophils % 76.0 H (40.0-70.0) % Seg Neutrophils # 10.6 H (1.8-7.7) K/mm3 VBG pH (7.320-7.420) Sodium 136 L (137-145) mmol/L Chloride 93.2 L (98-107) mmol/L Creatinine 6.2 H (0.8-1.5) mg/dL Glucose 248 H (75-100) mg/dL POC Glucose (70-105) Total Creatine Kinase (55-170) units/L CK-MB (CK-2) (0.0-4.0) ng/mL Troponin T 0.741 H* (0.00-0.029) ng/mL Triglycerides 191 H (2-149) mg/dL HDL Cholesterol 34 L (40-59) mg/dL 02/01/18 02/01/18 02/02/18 Range/Units 20:10 22:54 06:30 WBC (4.5-11.0) K/mm3 RBC (3.65-5.03) M/mm3 Hgb (11.8-15.2) gm/dl Hct (35.5-45.6) % Lymph % (Auto) (13.4-35.0) % Lymph # (1.2-5.4) K/mm3 Seg Neutrophils % (40.0-70.0) % Seg Neutrophils # (1.8-7.7) K/mm3 VBG pH 7.484 H (7.320-7.420) Sodium (137-145) mmol/L Chloride (98-107) mmol/L Creatinine (0.8-1.5) mg/dL Glucose (75-100) mg/dL POC Glucose 222 H (70-105) Total Creatine Kinase (55-170) units/L CK-MB (CK-2) (0.0-4.0) ng/mL Troponin T 0.612 H* (0.00-0.029) ng/mL Triglycerides (2-149) mg/dL HDL Cholesterol (40-59) mg/dL 02/02/18 02/02/18 02/02/18 Range/Units 08:41 08:41 08:41 WBC 13.0 H (4.5-11.0) K/mm3 RBC 3.52 L (3.65-5.03) M/mm3 Hgb 10.3 L (11.8-15.2) gm/dl Hct 32.4 L (35.5-45.6) % Lymph % (Auto) 7.7 L (13.4-35.0) % Lymph # 1.0 L (1.2-5.4) K/mm3 Seg Neutrophils % 85.4 H (40.0-70.0) % Seg Neutrophils # 11.1 H (1.8-7.7) K/mm3 VBG pH (7.320-7.420) Sodium (137-145) mmol/L Chloride (98-107) mmol/L Creatinine (0.8-1.5) mg/dL Glucose (75-100) mg/dL POC Glucose (70-105) Total Creatine Kinase 258 H (55-170) units/L CK-MB (CK-2) 9.7 H (0.0-4.0) ng/mL Troponin T 0.706 H* (0.00-0.029) ng/mL Triglycerides (2-149) mg/dL HDL Cholesterol (40-59) mg/dL
[2018-02-02] MEDS ORDERED: ZOFRAN ODT PO PRN (12:39)
[2018-02-02] MEDS ORDERED: PHENERGAN PR PRN (12:39)
--- NOTE | 2018-02-02 12:44 | Progress Note ---
Assessment and Plan Assessment and plan: Patient is 37-year-old man with a history of end-stage renal disease on hemodialysis Tuesday was in Tuesday who presents with chest pain pCXR reported as NAF CT abd/pelvis w/o contrast reported as NAF -Chest pains with elevated troponin: consult cardiology -Intractable nausea and vomiting most likely gastroparesis flare: Consulted GI -Hypertension urgency: Treat with IV hydralazine -End-stage renal disease needing hemodialysis: Consult nephrology -unControlled insulin-dependent diabetes mellitus: He is half dose of Lantus and treat with sliding scale insulin -DVT prophylaxis reviewed: scd for now -Lost IV access: consult IV team, use dissolvable Zofran History Interval history: Patient was seen and examined. Follow-up on current diagnosis of chest pain which has resolved but still with nausea vomiting. Overnight uneventful. Patient denies any chest pain, shortness breath,or severe headaches. Imaging, nursing note, chart, labs and old chart reviewed. Discussed with patient. Still with nausea vomiting Hospitalist Physical - Physical exam Narrative exam: GEN: Ill-appearing NAD, AWAKE, ALERT, ORIENTATED HEENT: NCAT, EOMI, PERRL, OP Clear NECK: supple, no adenopathy, no thyromegaly, no JVD CVS/HEART: RRR, NORMAL S1S2, pulses present bilaterally CHEST/LUNGS: CTA B, Symmetrical chest expansion, good air entry bilaterally GI/Abdomen: soft, nondistended, mild epigastric tenderness, good bowel sounds, no guarding or rebound /Bladder: no suprapubic tenderness, no CVA or paraspinal tenderness EXT/Skin: no c/c/e, no obvious rash MSK: FROM x 4 Neuro: CN 2-12 grossly intact, no new focal deficits Psych: calm - Constitutional Vitals: Temp Pulse Resp BP Pulse Ox 98.7 F 96 H 18 206/118 99 02/02/18 09:00 02/02/18 09:00 02/02/18 09:00 02/02/18 09:00 02/02/18 08:26 Results - Labs CBC & Chem 7: 02/02/18 08:41 02/01/18 20:10 Labs: Laboratory Last Values WBC 13.0 K/mm3 (4.5-11.0) H 02/02/18 08:41 RBC 3.52 M/mm3 (3.65-5.03) L 02/02/18 08:41 Hgb 10.3 gm/dl (11.8-15.2) L 02/02/18 08:41 Hct 32.4 % (35.5-45.6) L 02/02/18 08:41 MCV 92 fl (84-94) 02/02/18 08:41 MCH 29 pg (28-32) 02/02/18 08:41 MCHC 32 % (32-34) 02/02/18 08:41 RDW 15.1 % (13.2-15.2) 02/02/18 08:41 Plt Count 237 K/mm3 (140-440) 02/02/18 08:41 Lymph % (Auto) 7.7 % (13.4-35.0) L 02/02/18 08:41 [place] % (Auto) 5.4 % (0.0-7.3) 02/02/18 08:41 Eos % (Auto) 0.8 % (0.0-4.3) 02/02/18 08:41 Baso % (Auto) 0.7 % (0.0-1.8) 02/02/18 08:41 Lymph # 1.0 K/mm3 (1.2-5.4) L 02/02/18 08:41 [place] # 0.7 K/mm3 (0.0-0.8) 02/02/18 08:41 Eos # 0.1 K/mm3 (0.0-0.4) 02/02/18 08:41 Baso # 0.1 K/mm3 (0.0-0.1) 02/02/18 08:41 Seg Neutrophils % 85.4 % (40.0-70.0) H 02/02/18 08:41 Seg Neutrophils # 11.1 K/mm3 (1.8-7.7) H 02/02/18 08:41 PT 14.5 Sec. (12.2-14.9) 02/01/18 20:10 INR 1.07 (0.87-1.13) 02/01/18 20:10 VBG pH 7.484 (7.320-7.420) H 02/01/18 20:10 Sodium 136 mmol/L (137-145) L 02/01/18 20:10 Potassium 4.2 mmol/L (3.6-5.0) 02/01/18 20:10 Chloride 93.2 mmol/L (98-107) L 02/01/18 20:10 Carbon Dioxide 27 mmol/L (22-30) 02/01/18 20:10 Anion Gap 20 mmol/L 02/01/18 20:10 BUN 20 mg/dL (9-20) 02/01/18 20:10 Creatinine 6.2 mg/dL (0.8-1.5) H 02/01/18 20:10 Estimated GFR 12 ml/min 02/01/18 20:10 BUN/Creatinine Ratio 3 % 02/01/18 20:10 Glucose 248 mg/dL (75-100) H 02/01/18 20:10 POC Glucose 350 (70-105) H 02/02/18 12:09 Lactic Acid 1.00 mmol/L (0.7-2.0) 02/01/18 22:54 Calcium 9.3 mg/dL (8.4-10.2) 02/01/18 20:10 Total Bilirubin 0.30 mg/dL (0.1-1.2) 02/01/18 20:10 AST 13 units/L (5-40) 02/01/18 20:10 ALT 9 units/L (7-56) 02/01/18 20:10 Alkaline Phosphatase 87 units/L (35-129) 02/01/18 20:10 Total Creatine Kinase 258 units/L (55-170) H 02/02/18 08:41 CK-MB (CK-2) 9.7 ng/mL (0.0-4.0) H 02/02/18 08:41 CK-MB (CK-2) Rel Index 3.7 (0-4) 02/02/18 08:41 Troponin T 0.706 ng/mL (0.00-0.029) H* 02/02/18 08:41 Total Protein 7.5 g/dL (6.3-8.2) 02/01/18 20:10 Albumin 4.0 g/dL (3.9-5) 02/01/18 20:10 Albumin/Globulin Ratio 1.1 % 02/01/18 20:10 Triglycerides 191 mg/dL (2-149) H 02/01/18 20:09 Cholesterol 183 mg/dL (50-199) 02/01/18 20:09 LDL Cholesterol Direct 120 mg/dL (50-130) 02/01/18 20:09 HDL Cholesterol 34 mg/dL (40-59) L 02/01/18 20:09 Cholesterol/HDL Ratio 5.38 % 02/01/18 20:09
[2018-02-02] MEDS: HumaLOG SUB-Q SCH ×2 (15:05→18:26)
--- NOTE | 2018-02-02 15:22 | Consultation ---
History of Present Illness Consult date: 02/02/18 Consult reason: chest pain, hypertension History of present illness: The patient states that 7-year-old man with multiple medical problems. He has end-stage renal disease on hemodialysis, hypertension and diabetes. He has severe gastroparesis. In the last several months, he has had 2 admissions for protracted nausea and vomiting due to gastroparesis. As a result of his chronic kidney disease, there is persistent, chronic elevation of his troponin levels. He has had extensive cardiac ischemic workup including a cardiac catheterization 2 years ago that demonstrated normal coronary arteries. Left ventricle systolic function was normal with ejection fraction 55% on most recent echocardiogram 6 months ago. He is admitted to the hospital at this time, with recurrent symptoms of persistent nausea and vomiting. As a result of persistent vomiting has not been able to take his oral medications and his blood pressure on presentation has been 180-200 systolic. Cardiac consultation was requested for further assessment. Past History Past Medical History: hypertension Medications and Allergies Allergies Allergy/AdvReac Type Severity Reaction Status Date / Time iodine Allergy Severe Vomiting Verified 01/23/18 18:23 shellfish derived Allergy Anaphylaxis Verified 01/23/18 18:31 IV dye Allergy Severe Vomiting Uncoded 01/23/18 18:23 Home Medications Medication Instructions Recorded Confirmed Last Taken Type Vit B Comp C/Folic Acid/Vit D3 1 each PO QDAY 01/10/17 01/24/18 01/23/18 History [Dialyvite 800 Plus D Wafer] Clonidine HCl [Catapres] 0.3 mg PO BID 01/23/18 01/24/18 01/24/18 03:30 History Insulin Aspart [NovoLOG Flexpen] 6 - 15 unit SQ AC 01/23/18 01/24/18 01/23/18 History Insulin Glargine [Lantus VIAL] 30 units SQ QHS 01/23/18 01/24/18 01/23/18 History Linaclotide (Nf) [Linzess (Nf)] 290 mcg PO QDAY 01/23/18 01/24/18 01/23/18 History HYDROcodone/APAP 7.5-325 [[place] 1 each PO Q6HR PRN #40 tablet 01/24/18 Unknown Rx 7.5/325] Active Meds: Active Medications Acetaminophen (Tylenol) 650 mg PO Q4H PRN PRN Reason: Pain MILD(1-3)/Fever >100.5/SOARES Clonidine HCl (Catapres) 0.2 mg PO BID [facility] Last Admin: 02/02/18 12:10 Dose: Not Given Clonidine HCl (Catapres) 0.1 mg PO BID [facility] Last Admin: 02/02/18 12:28 Dose: Not Given Hydralazine HCl (Apresoline) 5 mg IV Q6H PRN PRN Reason: Hypertension Insulin Glargine (Lantus) 30 units SUB-Q QHS [facility] Insulin Human Lispro (Humalog) 0 unit SUB-Q Q6HR [facility]; Protocol Last Admin: 02/02/18 15:05 Dose: 8 unit Miscellaneous Medication (Linaclotide (Nf)) 290 mcg PO QDAY [facility] Morphine Sulfate (Morphine) 2 mg IV Q4H PRN PRN Reason: Pain, Moderate (4-6) Last Admin: 02/02/18 14:57 Dose: 2 mg Multivit/Ca Carb/B Cmplx/FA/Prenat (Renal Caps) 1 cap PO QDAY [facility] Last Admin: 02/02/18 10:46 Dose: 1 cap Ondansetron HCl (Zofran) 4 mg IV Q8H PRN PRN Reason: Nausea And Vomiting Last Admin: 02/02/18 10:46 Dose: 4 mg Ondansetron HCl (Zofran Odt) 4 mg PO Q4H PRN PRN Reason: Nausea And Vomiting Promethazine HCl (Phenergan) 25 mg [place] Q6H PRN PRN Reason: Nausea And Vomiting Sodium Chloride (Sodium Chloride Flush Syringe 10 Ml) 10 ml IV BID [facility] Last Admin: 02/02/18 10:49 Dose: 10 ml Sodium Chloride (Sodium Chloride Flush Syringe 10 Ml) 10 ml IV PRN PRN PRN Reason: LINE FLUSH Review of Systems Cardiovascular: chest pain, no orthopnea, no palpitations, no rapid/irregular heart beat, no edema, no syncope, no lightheadedness, no shortness of breath Gastrointestinal: nausea, vomiting Physical Examination Vital Signs BP Pulse Ox 186/99 100 02/01/18 19:13 02/01/18 19:13 General appearance: no acute distress HEENT: Positive: PERRL Neck: Positive: neck supple Cardiac: Positive: Reg Rate and Rhythm Lungs: Positive: Decreased Breath Sounds Neuro: Positive: Grossly Intact Abdomen: Positive: Soft Male genitourinary: Positive: deferred Skin: Positive: Clear Extremities: Absent: edema Results 02/02/18 08:41 02/01/18 20:10 Cardiac Enzymes 02/01/18 02/02/18 Range/Units 20:10 08:41 AST 13 (5-40) units/L CK-MB (CK-2) 9.7 H (0.0-4.0) ng/mL Coagulation 02/01/18 Range/Units 20:10 PT 14.5 (12.2-14.9) Sec. INR 1.07 (0.87-1.13) Lipids 02/01/18 Range/Units 20:09 Triglycerides 191 H (2-149) mg/dL Cholesterol 183 (50-199) mg/dL HDL Cholesterol 34 L (40-59) mg/dL Cholesterol/HDL Ratio 5.38 % CBC 02/01/18 02/02/18 Range/Units 20:09 08:41 WBC 13.9 H 13.0 H (4.5-11.0) K/mm3 RBC 3.95 3.52 L (3.65-5.03) M/mm3 Hgb 11.5 L 10.3 L (11.8-15.2) gm/dl Hct 35.5 32.4 L (35.5-45.6) % Plt Count 260 237 (140-440) K/mm3 Lymph # 2.4 1.0 L (1.2-5.4) K/mm3 [place] # 0.7 0.7 (0.0-0.8) K/mm3 Eos # 0.2 0.1 (0.0-0.4) K/mm3 Baso # 0.1 0.1 (0.0-0.1) K/mm3 Comprehensive Metabolic Panel 02/01/18 02/01/18 Range/Units 20:09 20:10 Sodium Cancelled 136 L Potassium Cancelled 4.2 Chloride Cancelled 93.2 L Carbon Dioxide Cancelled 27 BUN Cancelled 20 Creatinine Cancelled 6.2 H Glucose Cancelled 248 H Calcium Cancelled 9.3 AST 13 (5-40) units/L ALT 9 (7-56) units/L Alkaline Phosphatase 87 (35-129) units/L Total Protein 7.5 (6.3-8.2) g/dL Albumin 4.0 (3.9-5) g/dL EKG interpretations - Telemetry EKG Rhythm: Sinus Rhythm Assessment and Plan - Patient Problems (1) Gastroparesis Current Visit: No Status: Acute Plan to address problem: The patient's primary clinical problem at this time is the persistent vomiting from his gastroparesis. Will defer to internal medicine and gastroenterology for further management. (2) Hypertensive urgency Current Visit: No Status: Acute Plan to address problem: Due to his current GI status, he is not able to be treated with oral antihypertensives. We will use intravenous hydralazine and intravenous labetalol for blood pressure management.
[2018-02-02] MEDS ORDERED: PROTONIX IV SCH (16:00)
[2018-02-02] MEDS: APRESOLINE IV SCH ×3 (16:09→22:50)
[2018-02-02] MEDS: PEPCID IV SCH (17:51)
[2018-02-02] MEDS: NORMODYNE IV SCH ×2 (17:52→22:50)
[2018-02-02] MEDS ORDERED: NACL 0.9% 100 ML IV PRN (19:49)
[2018-02-02] MEDS: LANTUS SUB-Q SCH (21:40)
[2018-02-02] MEDS ORDERED: LANTUS SUB-Q ONE (23:15)
--- NOTE | 2018-02-03 01:46 | Consultation ---
REASON FOR CONSULTATION: Renal failure. HISTORY OF PRESENT ILLNESS: This 37-year-old Afro-[place] male with diabetes, hypertension, end-stage renal disease, was brought to the Emergency Room with complaints of recurrent nausea and vomiting for the past 3 days along with chest pain and lightheadedness. The patient goes to [facility] on Tuesday, Tuesday, and Tuesday. Last dialysis treatment was yesterday. The patient states that he is unable to keep down anything. PAST MEDICAL HISTORY: Diabetes, hypertension, and ESRD. PERSONAL HISTORY: Denies smoking, alcohol, or drug abuse. FAMILY HISTORY: No family history of kidney failure. ALLERGIES: IODINE AND SHELLFISH, IV DYE. CURRENT MEDICATIONS: Hydralazine IV 10 mg q. 4 hours p.r.n., insulin, labetalol 20 mg q. 6 hours p.r.n., Zofran 4 mg q. 8 hours p.r.n. REVIEW OF SYSTEMS: Complains of generalized weakness. Complains of recurrent nausea and vomiting with blood tinged vomitus. Complains of upper mid abdomen pain. Denies diarrhea or constipation. Denies fever or chills. Denies swelling of the legs. Other review of systems negative. PHYSICAL EXAMINATION: GENERAL: The patient is alert, oriented. VITAL SIGNS: Blood pressure 146/90 to 205/111, pulse 80, temperature 99.3. HEENT: Oral mucosa and tongue are dry. NECK: No JVD, no thyroid enlargement. LUNGS: Clear. HEART: S1, S2 regular. No pericardial rub. ABDOMEN: Bowel sounds present, mild epigastric tenderness noted. No masses palpable. EXTREMITIES: No significant edema, right upper arm AV access has bruit and thrill. LABORATORY DATA: WBC 13.0, hemoglobin 10.3, hematocrit 32.4, platelets 237. Sodium 136, potassium 4.2, chloride 93, CO2 27, BUN 20, creatinine 6.2, glucose 248. Troponin 0.612. ASSESSMENT AND PLAN: 1. End-stage renal disease, hemodialysis on Tuesday, Tuesday, and Tuesday. 2. Recurrent nausea and vomiting with diabetic gastroparesis. 3. Hypertensive urgency. 4. Diabetes with hyperglycemia. Optimize blood pressure medications. Consider clonidine-TTS patch as the patient cannot tolerate oral medications and continue parenteral blood pressure medications as needed. Awaiting GI consult. Monitor hemoglobin closely. JOB# [id number] NANCY/ROCK
[2018-02-03] MEDS: APRESOLINE IV SCH ×5 (02:30→19:03)
[2018-02-03] MEDS: NORMODYNE IV SCH ×4 (04:45→22:38)
[2018-02-03] MEDS: HumaLOG SUB-Q SCH ×3 (06:00→13:36)
[2018-02-03] MEDS: MORPHINE IV PRN ×3 (09:26→22:38)
[2018-02-03] MEDS: ZOFRAN IV PRN ×2 (09:28→22:38)
--- NOTE | 2018-02-03 10:06 | Gastroenterology Consultation ---
Addendum entered and electronically signed by BALA ALVAREZ NP 02/03/18 10:17: Pt reports no BM x 3 days. Will give dulcolax supp x1. KUB for abdominal distention. Avoid narcotics. OOB if tolerated. Original Note: <BALA ALVAREZ - Last Filed: 02/03/18 10:10> History of Present Illness - Reason for Consult Consult date: 02/03/18 N/V Requesting physician: TIKA HARRIS - History of Present Illness Mr Ventura is a 37 yo AAM with h/o poorly-controlled DM, ESRD, and diabetic gastroparesis who presented to the ED wtih chest pain with associated N/V. He has been seen multiple times in the past for similar symptoms. The patient reports he had a gastric emptying scan in the past when he was diagnosed. This episode of N/V started 3-4 days ago. On admission glucose 248. He also has a hx of poorly controlled HTN. At this time he is not able to hold any PO down. Denies gi bleeding, nsaid's, change in bowel habits, or weight loss. Noted cardiology consultation on admission. His pain is more in the abdomen than the chest. He was seen previously 3 times in consult in 2017. He reports he was recently seen by Dr. Mars Escalante as an outpatient and underwent EGD and colonoscopy at [facility] that was unremarkable. Prior EGD/ DIl in 2016. Per office notes, he previously had a decreased GBEF per HIDA and Recommended to have a CCY , however his blood pressure has not been controlled. He has ESRD on Dialysis. PMH significant for HTN, ESRD, DM, DKA, AV graft. Past History Past Medical History: diabetes, dialysis, ESRD, hypertension, renal failure Past Surgical History: Other (AV graft) Social history: lives with family Family history: hypertension Medications and Allergies Allergies Allergy/AdvReac Type Severity Reaction Status Date / Time iodine Allergy Severe Vomiting Verified 01/23/18 18:23 shellfish derived Allergy Anaphylaxis Verified 01/23/18 18:31 IV dye Allergy Severe Vomiting Uncoded 01/23/18 18:23 Home Medications Medication Instructions Recorded Confirmed Last Taken Type Vit B Comp C/Folic Acid/Vit D3 1 each PO QDAY 01/10/17 02/03/18 1 Day Ago History [Dialyvite 800 Plus D Wafer] ~02/02/18 Clonidine HCl [Catapres] 0.3 mg PO BID 01/23/18 02/03/18 1 Day Ago History ~02/02/18 Insulin Aspart [NovoLOG Flexpen] 6 - 15 unit SQ AC 01/23/18 02/03/18 1 Day Ago History ~02/02/18 Insulin Glargine [Lantus VIAL] 30 units SQ QHS 01/23/18 02/03/18 1 Day Ago History ~02/02/18 Linaclotide (Nf) [Linzess (Nf)] 290 mcg PO QDAY 01/23/18 02/03/18 1 Day Ago History ~02/02/18 Active Meds: Active Medications Acetaminophen (Tylenol) 650 mg PO Q4H PRN PRN Reason: Pain MILD(1-3)/Fever >100.5/SOARES Clonidine HCl (Catapres-Tts Patch) 0.2 mg TD QWEEK [facility] Famotidine (Pepcid) 20 mg IV Q24H [facility] Last Admin: 02/02/18 17:51 Dose: 20 mg Hydralazine HCl (Apresoline) 10 mg IV Q4HR [facility] Last Admin: 02/03/18 06:18 Dose: Not Given Sodium Chloride (Nacl 0.9%) 100 mls @ 999 mls/hr IV MARI PRN PRN Reason: Hypotension Insulin Glargine (Lantus) 30 units SUB-Q QHS [facility] Last Admin: 02/02/18 21:40 Dose: Not Given Insulin Human Lispro (Humalog) 0 unit SUB-Q Q6HR [facility]; Protocol Last Admin: 02/03/18 06:00 Dose: Not Given Labetalol HCl (Normodyne) 20 mg IV Q6H [facility] Last Admin: 02/03/18 04:45 Dose: Not Given Morphine Sulfate (Morphine) 2 mg IV Q4H PRN PRN Reason: Pain, Moderate (4-6) Last Admin: 02/03/18 09:26 Dose: 2 mg Multivit/Ca Carb/B Cmplx/FA/Prenat (Renal Caps) 1 cap PO QDAY [facility] Last Admin: 02/02/18 10:46 Dose: 1 cap Ondansetron HCl (Zofran) 4 mg IV Q8H PRN PRN Reason: Nausea And Vomiting Last Admin: 02/03/18 09:28 Dose: 4 mg Ondansetron HCl (Zofran Odt) 4 mg PO Q4H PRN PRN Reason: Nausea And Vomiting Promethazine HCl (Phenergan) 25 mg [place] Q6H PRN PRN Reason: Nausea And Vomiting Sodium Chloride (Sodium Chloride Flush Syringe 10 Ml) 10 ml IV BID [facility] Last Admin: 02/02/18 22:30 Dose: Not Given Sodium Chloride (Sodium Chloride Flush Syringe 10 Ml) 10 ml IV PRN PRN PRN Reason: LINE FLUSH Review of Systems - Review of Systems All systems: negative Gastrointestinal: abdominal pain, nausea, vomiting Exam - Constitutional Vital Signs: Temp Pulse Resp BP Pulse Ox 98.6 F 110 H 22 220/110 99 02/03/18 03:49 02/03/18 05:50 02/03/18 09:26 02/03/18 09:27 02/03/18 03:49 General appearance: no acute distress - EENT Eyes: EOM intact ENT: hearing intact - Neck Neck: supple - Respiratory Respiratory: bilateral: CTA - Cardiovascular Rhythm: other (tachycardic) Heart Sounds: Present: S1 & S2 Extremities: pulses intact, No edema - Gastrointestinal General gastrointestinal: Present: soft, tender (TTP epigastric/ periumbilical area), non-distended - Integumentary Integumentary: Present: warm, dry - Neurologic Neurological: alert and oriented x3 - Psychiatric Psychiatric: appropriate mood/affect - Labs CBC & Chem 7: 02/02/18 08:41 02/01/18 20:10 Lab Results: Laboratory Results - last 24 hr 02/02/18 02/02/18 02/02/18 08:28 08:41 12:09 POC Glucose 254 H 350 H Troponin T 0.706 H* 02/02/18 02/02/18 02/03/18 16:43 21:27 06:32 POC Glucose 307 H 178 H 260 H Troponin T Assessment and Plan 1. N/V 2. Abdominal Pain 3. ESRD 4. DM -N/V likely due to gastroparesis, possibly a component of biliary dysfunction -Clear liquids. -Pt reports he has tried Reglan in the past but does not work -Give one trial dose of Ativan for N/V (small dose x 1) -Tight Glycemic control -Cardiology consult noted -CT of A/P with no acute process. -Will follow. <JASON REESE - Last Filed: 02/03/18 12:43> Medications and Allergies Active Meds: Active Medications Acetaminophen (Tylenol) 650 mg PO Q4H PRN PRN Reason: Pain MILD(1-3)/Fever >100.5/SOARES Bisacodyl (Dulcolax) 10 mg [place] ONCE [facility] Clonidine HCl (Catapres-Tts Patch) 0.3 mg TD Fr [facility] Famotidine (Pepcid) 20 mg IV Q24H [facility] Last Admin: 02/02/18 17:51 Dose: 20 mg Hydralazine HCl (Apresoline) 10 mg IV Q4HR [facility] Last Admin: 02/03/18 06:18 Dose: Not Given Sodium Chloride (Nacl 0.9%) 100 mls @ 999 mls/hr IV MARI PRN PRN Reason: Hypotension Insulin Glargine (Lantus) 30 units SUB-Q QHS [facility] Last Admin: 02/02/18 21:40 Dose: Not Given Insulin Human Lispro (Humalog) 0 unit SUB-Q Q6HR [facility]; Protocol Last Admin: 02/03/18 06:00 Dose: Not Given Labetalol HCl (Normodyne) 20 mg IV Q6H [facility] Last Admin: 02/03/18 04:45 Dose: Not Given Morphine Sulfate (Morphine) 2 mg IV Q4H PRN PRN Reason: Pain, Moderate (4-6) Last Admin: 02/03/18 09:26 Dose: 2 mg Multivit/Ca Carb/B Cmplx/FA/Prenat (Renal Caps) 1 cap PO QDAY [facility] Last Admin: 02/02/18 10:46 Dose: 1 cap Nitroglycerin (Nitro Dur) 0.4 mg TD QDAY@0600 [facility] Ondansetron HCl (Zofran) 4 mg IV Q8H PRN PRN Reason: Nausea And Vomiting Last Admin: 02/03/18 09:28 Dose: 4 mg Ondansetron HCl (Zofran Odt) 4 mg PO Q4H PRN PRN Reason: Nausea And Vomiting Promethazine HCl (Phenergan) 25 mg [place] Q6H PRN PRN Reason: Nausea And Vomiting Sodium Chloride (Sodium Chloride Flush Syringe 10 Ml) 10 ml IV BID [facility] Last Admin: 02/02/18 22:30 Dose: Not Given Sodium Chloride (Sodium Chloride Flush Syringe 10 Ml) 10 ml IV PRN PRN PRN Reason: LINE FLUSH Exam - Constitutional Vital Signs: Temp Pulse Resp BP Pulse Ox 98.5 F 120 H 18 154/100 96 02/03/18 11:00 02/03/18 11:30 02/03/18 11:00 02/03/18 11:30 02/03/18 10:00 - Labs CBC & Chem 7: 02/02/18 08:41 02/01/18 20:10 Lab Results: Laboratory Results - last 24 hr 02/02/18 02/02/18 02/03/18 16:43 21:27 06:32 POC Glucose 307 H 178 H 260 H Assessment and Plan - Patient Problems (1) ESRD (end stage renal disease) on dialysis Current Visit: Yes Status: Acute (2) Gastroparesis due to DM Current Visit: Yes Status: Acute Plan to address problem: The patient was seen and examined. Will plan conservative care initially as the patient may improve once metabolically stable. The diagnosis is well established. (3) Diabetes mellitus Current Visit: Yes Status: Chronic (4) Accelerated hypertension Current Visit: No Status: Acute
[2018-02-03] MEDS ORDERED: ATIVAN IV ONE (10:30)
[2018-02-03] MEDS: Renal Caps PO SCH (10:35)
[2018-02-03] MEDS ORDERED: DULCOLAX PR SCH (11:00)
--- NOTE | 2018-02-03 11:35 | Progress Note ---
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 No further cardiac intervention Subjective Date of service: 02/03/18 Principal diagnosis: Nausea and vomiting Interval history: No interval changes cardiac [place] Tele is showing sinus tachycardia Objective Vital Signs Temp Pulse Resp BP BP Pulse Ox 02/03/18 10:00 96 02/03/18 09:27 220/110 02/03/18 09:26 22 02/03/18 09:13 98.9 F 18 220/107 02/03/18 05:50 110 H 02/03/18 03:49 98.6 F 106 H 18 192/102 99 02/02/18 23:31 99.1 F 100 H 20 157/93 95 02/02/18 22:00 101 H 95 02/02/18 19:30 99.2 F 109 H 20 183/102 99 02/02/18 17:33 99 F 18 205/111 02/02/18 16:47 74 99 02/02/18 16:46 99.3 F 80 18 205/111 98 02/02/18 14:44 99 02/02/18 14:36 123 H 02/02/18 13:00 98.8 F 120 H 18 186/102 99 02/02/18 12:05 121 H 100 - Physical Examination HEENT: Positive: PERRL Neck: Positive: neck supple Cardiac: Positive: Tachycardia Lungs: Positive: Normal Exam Neuro: Positive: Grossly Intact Abdomen: Positive: Soft Skin: Positive: Clear Extremities: Absent: edema
[2018-02-03] MEDS ORDERED: CATAPRES-TTS PATCH TD SCH ×4 (12:00→13:00)
--- NOTE | 2018-02-03 14:02 | XRay Report ---
ABDOMEN RADIOGRAPHS INDICATION: Abdominal distention. COMPARISON: None similar. FINDINGS: Frontal abdominal radiographs demonstrate nonobstructive bowel gas pattern. Hepatic flexure stool. No focal suspicious calcifications, pneumatosis or pneumoperitoneum. Clear visualized lung bases with right hemidiaphragm minimally elevated. Unremarkable bones. CONCLUSION: No acute abdominal radiographic abnormality, as described. Thank you for the opportunity to participate in this patient's care.
--- NOTE | 2018-02-03 15:27 | Consultation ---
History of Present Illness - Reason for Consult Consult date: 02/03/18 end stage renal disease - History of Present Illness Mr. Ventura is a 37yo gentleman with ESRD on HD, type I DM (hx of DKA) who presented to the ED with complaint of a two day history of chest pain/ epigastric pain. He reports pain associated with nausea/vomiting. Past History Past Medical History: diabetes, dialysis, ESRD, hypertension, renal failure Past Surgical History: Other (AV graft) Social history: lives with family Family history: hypertension Medications and Allergies Allergies Allergy/AdvReac Type Severity Reaction Status Date / Time iodine Allergy Severe Vomiting Verified 01/23/18 18:23 shellfish derived Allergy Anaphylaxis Verified 01/23/18 18:31 IV dye Allergy Severe Vomiting Uncoded 01/23/18 18:23 Home Medications Medication Instructions Recorded Confirmed Last Taken Type Vit B Comp C/Folic Acid/Vit D3 1 each PO QDAY 01/10/17 02/03/18 1 Day Ago History [Dialyvite 800 Plus D Wafer] ~02/02/18 Clonidine HCl [Catapres] 0.3 mg PO BID 01/23/18 02/03/18 1 Day Ago History ~02/02/18 Insulin Aspart [NovoLOG Flexpen] 6 - 15 unit SQ AC 01/23/18 02/03/18 1 Day Ago History ~02/02/18 Insulin Glargine [Lantus VIAL] 30 units SQ QHS 01/23/18 02/03/18 1 Day Ago History ~02/02/18 Linaclotide (Nf) [Linzess (Nf)] 290 mcg PO QDAY 01/23/18 02/03/18 1 Day Ago History ~02/02/18 Active Meds: Active Medications Acetaminophen (Tylenol) 650 mg PO Q4H PRN PRN Reason: Pain MILD(1-3)/Fever >100.5/SOARES Bisacodyl (Dulcolax) 10 mg [place] ONCE [facility] Clonidine HCl (Catapres-Tts Patch) 0.3 mg TD Fr [facility] Famotidine (Pepcid) 20 mg IV Q24H [facility] Last Admin: 02/02/18 17:51 Dose: 20 mg Hydralazine HCl (Apresoline) 10 mg IV Q4HR [facility] Last Admin: 02/03/18 15:23 Dose: 10 mg Sodium Chloride (Nacl 0.9%) 100 mls @ 999 mls/hr IV [facility]I PRN PRN Reason: Hypotension Insulin Glargine (Lantus) 30 units SUB-Q QHS [facility] Last Admin: 02/02/18 21:40 Dose: Not Given Insulin Human Lispro (Humalog) 0 unit SUB-Q Q6HR [facility]; Protocol Last Admin: 02/03/18 13:36 Dose: Not Given Labetalol HCl (Normodyne) 20 mg IV Q6H [facility] Last Admin: 02/03/18 10:33 Dose: Not Given Morphine Sulfate (Morphine) 2 mg IV Q4H PRN PRN Reason: Pain, Moderate (4-6) Last Admin: 02/03/18 15:23 Dose: 2 mg Multivit/Ca Carb/B Cmplx/FA/Prenat (Renal Caps) 1 cap PO QDAY [facility] Last Admin: 02/03/18 10:35 Dose: Not Given Nitroglycerin (Nitro Dur) 0.4 mg TD QDAY@0600 [facility] Ondansetron HCl (Zofran) 4 mg IV Q8H PRN PRN Reason: Nausea And Vomiting Last Admin: 02/03/18 09:28 Dose: 4 mg Ondansetron HCl (Zofran Odt) 4 mg PO Q4H PRN PRN Reason: Nausea And Vomiting Promethazine HCl (Phenergan) 25 mg [place] Q6H PRN PRN Reason: Nausea And Vomiting Sodium Chloride (Sodium Chloride Flush Syringe 10 Ml) 10 ml IV BID [facility] Last Admin: 02/02/18 22:30 Dose: Not Given Sodium Chloride (Sodium Chloride Flush Syringe 10 Ml) 10 ml IV PRN PRN PRN Reason: LINE FLUSH Review of Systems Cardiovascular: chest pain Gastrointestinal: nausea, vomiting Exam - Vital Signs Vital signs: Vital Signs BP Pulse Ox 186/99 100 02/01/18 19:13 02/01/18 19:13 - General Appearance General appearance: well-developed, well-nourished EENT: ATNC Respiratory: Clear to Ascultation Heart: regular, S1S2 Gastrointestinal: Absent: tenderness, distended Integumentary: no rash, warm and dry Neurologic: alert and oriented x3 Musculoskeletal: Present: other (no edema) Psychiatric: cooperative Results - Lab Results 02/02/18 08:41 02/01/18 20:10 Most recent lab results Calcium 9.3 mg/dL (8.4-10.2) 02/01/18 20:10 Assessment and Plan Impression * End stage renal disease * Nausea/vomiting likely secondary to diabetic gastroparesis * Hypertension, uncontrolled * Chest pain * Type I DM * Anemia secondary to ESRD Recommendations * Continue HD MWF * UF as tolerated * Consultants' recommendations reviewed * Note increase in clonidine - will monitor BP, continiue to adjust as needed * Tight glycemic control per primary team * Epogen TIW prn
--- NOTE | 2018-02-03 16:10 | Progress Note ---
Assessment and Plan Assessment and plan: Patient is 37-year-old man with a history of end-stage renal disease on hemodialysis Tuesday was in Tuesday who presents with chest pain pCXR reported as NAF CT abd/pelvis w/o contrast reported as NAF -Chest pains with elevated troponin: consult cardiology -Intractable nausea and vomiting most likely Severe gastroparesis flare: Consulted GI -Hypertension urgency: Treat with IV hydralazine -End-stage renal disease needing hemodialysis: Consult nephrology -unControlled insulin-dependent diabetes mellitus: He is half dose of Lantus and treat with sliding scale insulin -DVT prophylaxis reviewed: scd for now -Lost IV access: consult IV team, use dissolvable Zofran: iv team place peripheral iv line -Non-specific chronically elevated troponin Speech Teacher Recommendations: "Increase clonidine to TTS-3 Apply nitropatch 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 Patiño Disposition: once bp improves and able to tolerate food and/or liquid, will discharge History Interval history: Patient was seen and examined. Follow-up on current diagnosis of chest pain which has resolved but still with nausea/vomiting. Overnight uneventful. Patient denies any chest pain, shortness breath,or severe headaches. Imaging, nursing note, chart, labs and old chart reviewed. Discussed with patient. Hospitalist Physical - Physical exam Narrative exam: GEN: Ill-appearing NAD, AWAKE, ALERT, ORIENTATED x 3 HEENT: NCAT, EOMI, PERRL, OP Clear NECK: supple, no adenopathy, no thyromegaly, no JVD CVS/HEART: RRR, NORMAL S1S2, pulses present bilaterally CHEST/LUNGS: CTA B, Symmetrical chest expansion, good air entry bilaterally GI/Abdomen: soft, +distended, mild epigastric tenderness, good bowel sounds, no guarding or rebound /Bladder: no suprapubic tenderness, no CVA or paraspinal tenderness EXT/Skin: no c/c/e, no obvious rash MSK: FROM x 4 Neuro: CN 2-12 grossly intact, no new focal deficits Psych: calm - Constitutional Vitals: Temp Pulse Resp BP Pulse Ox 98.8 F 117 H 20 186/110 98 02/03/18 14:00 02/03/18 14:05 02/03/18 15:23 02/03/18 15:23 02/03/18 10:00 General appearance: Present: no acute distress Results - Labs CBC & Chem 7: 02/02/18 08:41 02/01/18 20:10 Labs: Laboratory Last Values WBC 13.0 K/mm3 (4.5-11.0) H 02/02/18 08:41 RBC 3.52 M/mm3 (3.65-5.03) L 02/02/18 08:41 Hgb 10.3 gm/dl (11.8-15.2) L 02/02/18 08:41 Hct 32.4 % (35.5-45.6) L 02/02/18 08:41 MCV 92 fl (84-94) 02/02/18 08:41 MCH 29 pg (28-32) 02/02/18 08:41 MCHC 32 % (32-34) 02/02/18 08:41 RDW 15.1 % (13.2-15.2) 02/02/18 08:41 Plt Count 237 K/mm3 (140-440) 02/02/18 08:41 Lymph % (Auto) 7.7 % (13.4-35.0) L 02/02/18 08:41 [place] % (Auto) 5.4 % (0.0-7.3) 02/02/18 08:41 Eos % (Auto) 0.8 % (0.0-4.3) 02/02/18 08:41 Baso % (Auto) 0.7 % (0.0-1.8) 02/02/18 08:41 Lymph # 1.0 K/mm3 (1.2-5.4) L 02/02/18 08:41 [place] # 0.7 K/mm3 (0.0-0.8) 02/02/18 08:41 Eos # 0.1 K/mm3 (0.0-0.4) 02/02/18 08:41 Baso # 0.1 K/mm3 (0.0-0.1) 02/02/18 08:41 Seg Neutrophils % 85.4 % (40.0-70.0) H 02/02/18 08:41 Seg Neutrophils # 11.1 K/mm3 (1.8-7.7) H 02/02/18 08:41 PT 14.5 Sec. (12.2-14.9) 02/01/18 20:10 INR 1.07 (0.87-1.13) 02/01/18 20:10 VBG pH 7.484 (7.320-7.420) H 02/01/18 20:10 Sodium 136 mmol/L (137-145) L 02/01/18 20:10 Potassium 4.2 mmol/L (3.6-5.0) 02/01/18 20:10 Chloride 93.2 mmol/L (98-107) L 02/01/18 20:10 Carbon Dioxide 27 mmol/L (22-30) 02/01/18 20:10 Anion Gap 20 mmol/L 02/01/18 20:10 BUN 20 mg/dL (9-20) 02/01/18 20:10 Creatinine 6.2 mg/dL (0.8-1.5) H 02/01/18 20:10 Estimated GFR 12 ml/min 02/01/18 20:10 BUN/Creatinine Ratio 3 % 02/01/18 20:10 Glucose 248 mg/dL (75-100) H 02/01/18 20:10 POC Glucose 260 (70-105) H 02/03/18 06:32 Lactic Acid 1.00 mmol/L (0.7-2.0) 02/01/18 22:54 Calcium 9.3 mg/dL (8.4-10.2) 02/01/18 20:10 Total Bilirubin 0.30 mg/dL (0.1-1.2) 02/01/18 20:10 AST 13 units/L (5-40) 02/01/18 20:10 ALT 9 units/L (7-56) 02/01/18 20:10 Alkaline Phosphatase 87 units/L (35-129) 02/01/18 20:10 Total Creatine Kinase 258 units/L (55-170) H 02/02/18 08:41 CK-MB (CK-2) 9.7 ng/mL (0.0-4.0) H 02/02/18 08:41 CK-MB (CK-2) Rel Index 3.7 (0-4) 02/02/18 08:41 Troponin T 0.706 ng/mL (0.00-0.029) H* 02/02/18 08:41 Total Protein 7.5 g/dL (6.3-8.2) 02/01/18 20:10 Albumin 4.0 g/dL (3.9-5) 02/01/18 20:10 Albumin/Globulin Ratio 1.1 % 02/01/18 20:10 Triglycerides 191 mg/dL (2-149) H 02/01/18 20:09 Cholesterol 183 mg/dL (50-199) 02/01/18 20:09 LDL Cholesterol Direct 120 mg/dL (50-130) 02/01/18 20:09 HDL Cholesterol 34 mg/dL (40-59) L 02/01/18 20:09 Cholesterol/HDL Ratio 5.38 % 02/01/18 20:09
[2018-02-03] MEDS ORDERED: NACL 0.9 (PRIMING MACHINE ONLY DIALYSIS) MC ONE (16:24)
[2018-02-03] MEDS: PEPCID IV SCH (19:03)
[2018-02-03] MEDS: SODIUM CHLORIDE FLUSH SYRINGE 10 ML IV SCH ×2 (22:49→22:50)
[2018-02-03] MEDS: REGLAN PO SCH (22:51)
[2018-02-04] MEDS: HumaLOG SUB-Q SCH (00:45)
[2018-02-04] MEDS: APRESOLINE IV SCH ×6 (01:06→22:30)
[2018-02-04] MEDS: REGLAN PO SCH ×3 (01:25→17:30)
[2018-02-04] MEDS: LANTUS SUB-Q SCH ×2 (02:51→22:29)
[2018-02-04] MEDS: NITRO DUR TD SCH (05:29)
[2018-02-04] MEDS: ZOFRAN IV PRN (05:30)
[2018-02-04] MEDS: MORPHINE IV PRN ×2 (05:30→19:05)
[2018-02-04] MEDS: SODIUM CHLORIDE FLUSH SYRINGE 10 ML IV SCH ×3 (05:31→22:30)
--- NOTE | 2018-02-04 07:33 | Progress Note ---
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 Resting comfortably. No chest pain or SOB. Objective Vital Signs Temp Pulse Resp BP Pulse Ox 02/04/18 05:30 111 H 151/101 02/04/18 05:29 151/101 02/04/18 05:09 98.2 F 111 H 18 152/101 99 02/04/18 02:50 132/79 02/03/18 23:33 99 02/03/18 23:24 98.5 F 100 H 18 121/74 100 02/03/18 22:38 150/90 02/03/18 22:31 150/90 02/03/18 19:03 111 H 132/90 02/03/18 16:36 186/110 02/03/18 16:08 186/110 02/03/18 15:23 20 186/110 02/03/18 14:05 117 H 197/115 02/03/18 14:00 98.8 F 117 H 16 197/115 02/03/18 13:48 108 H 02/03/18 13:45 108 H 168/113 02/03/18 13:30 108 H 166/99 02/03/18 13:15 109 H 155/107 02/03/18 13:00 110 H 176/112 02/03/18 12:45 117 H 154/100 02/03/18 12:30 114 H 169/104 02/03/18 12:15 113 H 168/99 02/03/18 12:00 110 H 168/100 02/03/18 11:30 120 H 154/100 02/03/18 11:15 119 H 211/106 02/03/18 11:00 98.5 F 115 H 18 211/124 02/03/18 10:00 20 98 02/03/18 09:27 220/110 02/03/18 09:26 22 02/03/18 09:13 98.9 F 18 220/107 - Physical Examination HEENT: Positive: PERRL Neck: Positive: neck supple Neuro: Positive: Grossly Intact Abdomen: Positive: Soft Skin: Positive: Clear Extremities: Absent: edema
[2018-02-04] MEDS: Renal Caps PO SCH (11:30)
[2018-02-04] MEDS: NORMODYNE IV SCH ×2 (11:40→17:30)
--- NOTE | 2018-02-04 16:50 | Progress Note ---
Assessment and Plan Impression * End stage renal disease * Nausea/vomiting likely secondary to diabetic gastroparesis * Hypertension, uncontrolled * Chest pain - resolved * Type I DM * Anemia secondary to ESRD Recommendations * Continue HD MWF * UF as tolerated * Consultants' recommendations reviewed * Resume home medications: Amlodipine 10mg, Coreg 25mg BID - patient is tolerating po liquids; continue PRN medications * Tight glycemic control per primary team * Epogen TIW prn Subjective Date of service: 02/04/18 Principal diagnosis: Nausea and vomiting Interval history: Patient denies chest pain and SOB. Reports nausea. Tolerated juice. Requests broth. Objective - Vital Signs Vital signs: Vital Signs - 12hr 02/04/18 02/04/18 02/04/18 05:09 05:29 05:30 Temperature 98.2 F Pulse Rate 111 H 111 H Respiratory 18 Rate Blood Pressure 152/101 151/101 151/101 O2 Sat by Pulse 99 Oximetry 02/04/18 02/04/18 02/04/18 10:54 11:30 11:40 Temperature Pulse Rate 116 H 116 H Respiratory Rate Blood Pressure 167/100 167/100 O2 Sat by Pulse 98 Oximetry - General Appearance General appearance: well-developed, well-nourished EENT: ATNC Respiratory: Present: Clear to Ascultation Cardiology: regular, S1S2 Gastrointestinal: normal, no tenderness, no distended Integumentary: no rash, warm and dry Neurologic: no focal deficit Musculoskeletal: other (no edema) Psychiatric: cooperative - Lab 02/02/18 08:41 02/01/18 20:10 Most recent lab results Calcium 9.3 mg/dL (8.4-10.2) 02/01/18 20:10
--- NOTE | 2018-02-04 16:56 | Progress Note ---
Assessment and Plan Assessment and plan: Patient is 37-year-old man with a history of end-stage renal disease on hemodialysis Tuesday was in Tuesday who presents with chest pain pCXR reported as NAF CT abd/pelvis w/o contrast reported as NAF -Chest pains with elevated troponin: consult cardiology -Intractable nausea and vomiting most likely Severe gastroparesis flare: Consulted GI -Hypertension urgency: Treat with IV hydralazine -End-stage renal disease needing hemodialysis: Consult nephrology -unControlled insulin-dependent diabetes mellitus: He is half dose of Lantus and treat with sliding scale insulin -DVT prophylaxis reviewed: scd for now -Lost IV access: consult IV team, use dissolvable Zofran: iv team place peripheral iv line -Non-specific chronically elevated 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 Patiño Disposition: once bp improves and able to tolerate food and/or liquid, will discharge Bp still not controlled. Clonidine increase noted, called Nephrology History Interval history: Patient was seen and examined. Follow-up on current diagnosis of chest pain which has resolved but still with nausea/vomiting. Overnight uneventful. Patient denies any chest pain, shortness breath,or severe headaches. Imaging, nursing note, chart, labs and old chart reviewed. Discussed with patient. Hospitalist Physical - Physical exam Narrative exam: GEN: Ill-appearing NAD, AWAKE, ALERT, ORIENTATED x 3 HEENT: NCAT, EOMI, PERRL, OP Clear NECK: supple, no adenopathy, no thyromegaly, no JVD CVS/HEART: RRR, NORMAL S1S2, pulses present bilaterally CHEST/LUNGS: CTA B, Symmetrical chest expansion, good air entry bilaterally GI/Abdomen: soft, +distended, mild epigastric tenderness, good bowel sounds, no guarding or rebound /Bladder: no suprapubic tenderness, no CVA or paraspinal tenderness EXT/Skin: no c/c/e, no obvious rash MSK: FROM x 4 Neuro: CN 2-12 grossly intact, no new focal deficits Psych: calm - Constitutional Vitals: Temp Pulse Resp BP Pulse Ox 98.2 F 116 H 18 167/100 98 02/04/18 05:09 02/04/18 11:40 02/04/18 05:09 02/04/18 11:40 02/04/18 10:54 General appearance: Present: no acute distress Results - Labs CBC & Chem 7: 02/02/18 08:41 02/01/18 20:10 Labs: Laboratory Last Values WBC 13.0 K/mm3 (4.5-11.0) H 02/02/18 08:41 RBC 3.52 M/mm3 (3.65-5.03) L 02/02/18 08:41 Hgb 10.3 gm/dl (11.8-15.2) L 02/02/18 08:41 Hct 32.4 % (35.5-45.6) L 02/02/18 08:41 MCV 92 fl (84-94) 02/02/18 08:41 MCH 29 pg (28-32) 02/02/18 08:41 MCHC 32 % (32-34) 02/02/18 08:41 RDW 15.1 % (13.2-15.2) 02/02/18 08:41 Plt Count 237 K/mm3 (140-440) 02/02/18 08:41 Lymph % (Auto) 7.7 % (13.4-35.0) L 02/02/18 08:41 [place] % (Auto) 5.4 % (0.0-7.3) 02/02/18 08:41 Eos % (Auto) 0.8 % (0.0-4.3) 02/02/18 08:41 Baso % (Auto) 0.7 % (0.0-1.8) 02/02/18 08:41 Lymph # 1.0 K/mm3 (1.2-5.4) L 02/02/18 08:41 [place] # 0.7 K/mm3 (0.0-0.8) 02/02/18 08:41 Eos # 0.1 K/mm3 (0.0-0.4) 02/02/18 08:41 Baso # 0.1 K/mm3 (0.0-0.1) 02/02/18 08:41 Seg Neutrophils % 85.4 % (40.0-70.0) H 02/02/18 08:41 Seg Neutrophils # 11.1 K/mm3 (1.8-7.7) H 02/02/18 08:41 PT 14.5 Sec. (12.2-14.9) 02/01/18 20:10 INR 1.07 (0.87-1.13) 02/01/18 20:10 VBG pH 7.484 (7.320-7.420) H 02/01/18 20:10 Sodium 136 mmol/L (137-145) L 02/01/18 20:10 Potassium 4.2 mmol/L (3.6-5.0) 02/01/18 20:10 Chloride 93.2 mmol/L (98-107) L 02/01/18 20:10 Carbon Dioxide 27 mmol/L (22-30) 02/01/18 20:10 Anion Gap 20 mmol/L 02/01/18 20:10 BUN 20 mg/dL (9-20) 02/01/18 20:10 Creatinine 6.2 mg/dL (0.8-1.5) H 02/01/18 20:10 Estimated GFR 12 ml/min 02/01/18 20:10 BUN/Creatinine Ratio 3 % 02/01/18 20:10 Glucose 248 mg/dL (75-100) H 02/01/18 20:10 POC Glucose 288 (70-105) H 02/04/18 05:20 Lactic Acid 1.00 mmol/L (0.7-2.0) 02/01/18 22:54 Calcium 9.3 mg/dL (8.4-10.2) 02/01/18 20:10 Total Bilirubin 0.30 mg/dL (0.1-1.2) 02/01/18 20:10 AST 13 units/L (5-40) 02/01/18 20:10 ALT 9 units/L (7-56) 02/01/18 20:10 Alkaline Phosphatase 87 units/L (35-129) 02/01/18 20:10 Total Creatine Kinase 258 units/L (55-170) H 02/02/18 08:41 CK-MB (CK-2) 9.7 ng/mL (0.0-4.0) H 02/02/18 08:41 CK-MB (CK-2) Rel Index 3.7 (0-4) 02/02/18 08:41 Troponin T 0.706 ng/mL (0.00-0.029) H* 02/02/18 08:41 Total Protein 7.5 g/dL (6.3-8.2) 02/01/18 20:10 Albumin 4.0 g/dL (3.9-5) 02/01/18 20:10 Albumin/Globulin Ratio 1.1 % 02/01/18 20:10 Triglycerides 191 mg/dL (2-149) H 02/01/18 20:09 Cholesterol 183 mg/dL (50-199) 02/01/18 20:09 LDL Cholesterol Direct 120 mg/dL (50-130) 02/01/18 20:09 HDL Cholesterol 34 mg/dL (40-59) L 02/01/18 20:09 Cholesterol/HDL Ratio 5.38 % 02/01/18 20:09
--- NOTE | 2018-02-04 17:00 | Gastroenterology Progress Note ---
Assessment and Plan 1. Nausea/vomiting 2. Abdominal pain 3. ESRD 4. Diabetes -suspect symptoms 2/2 pt's known diabetic gastroparesis. clear liquid diet and advance as tolerated. hopefully will improve with better dm control. treat constipation as likely exacerbating symptoms. will follow. Subjective Date of service: 02/04/18 Principal diagnosis: Nausea and vomiting Interval history: pt seen and examined. states n/v has slightly improved since admission. tolerated small amount of clears this morning. still with constipation. Objective - Constitutional Vitals: Temp Pulse Resp BP Pulse Ox 98.2 F 116 H 18 167/100 98 02/04/18 05:09 02/04/18 11:40 02/04/18 05:09 02/04/18 11:40 02/04/18 10:54 General appearance: no acute distress - Respiratory Respiratory effort: normal Respiratory: bilateral: CTA - Cardiovascular Rhythm: regular Heart Sounds: Present: S1 & S2 - Extremities Extremities: No edema - Gastrointestinal General gastrointestinal: Present: soft, non-tender, normal bowel sounds - Neurologic Neurological: alert and oriented x3 - Psychiatric Psychiatric: appropriate mood/affect - Labs CBC & Chem 7: 02/02/18 08:41 02/01/18 20:10 Labs: Laboratory Results - last 24 hr 02/03/18 02/04/18 21:08 05:20 POC Glucose 279 H 288 H
[2018-02-04] MEDS: NORVASC PO SCH (17:30)
[2018-02-04] MEDS: PEPCID IV SCH (19:04)
[2018-02-04] MEDS ORDERED: AMBIEN PO ONE (21:45)
[2018-02-04] MEDS: COREG PO SCH (22:35)
[2018-02-05] MEDS: HumaLOG SUB-Q SCH ×5 (01:15→06:50)
[2018-02-05] MEDS: REGLAN PO SCH ×3 (01:21→08:20)
[2018-02-05] MEDS: NORMODYNE IV SCH ×4 (01:23→10:20)
[2018-02-05] MEDS: APRESOLINE IV SCH ×3 (06:51→13:19)
[2018-02-05] MEDS: NITRO DUR TD SCH (06:51)
--- NOTE | 2018-02-05 08:48 | Progress Note ---
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 Resting comfortably. No chest pain or SOB. Objective Vital Signs Pulse Pulse Pulse Resp BP Pulse Ox 02/05/18 06:51 95 H 104/62 02/05/18 06:50 95 H 104/62 02/05/18 01:23 102 H 119/67 02/04/18 22:35 103 H 114/63 02/04/18 22:30 103 H 114/63 02/04/18 22:00 100 H 102 H 20 02/04/18 20:49 111 H 02/04/18 19:35 20 02/04/18 19:05 20 02/04/18 17:30 103 H 138/98 02/04/18 14:00 116 H 02/04/18 11:40 116 H 167/100 02/04/18 11:30 116 H 167/100 02/04/18 10:54 98 02/04/18 10:19 119 H 129/73 96 02/04/18 10:00 20 98 - Physical Examination HEENT: Positive: PERRL Neck: Positive: neck supple Neuro: Positive: Grossly Intact Abdomen: Positive: Soft Skin: Positive: Clear Extremities: Absent: edema
--- NOTE | 2018-02-05 09:59 | Discharge Summary ---
Providers - Providers Date of Admission: 02/01/18 23:28 Date of discharge: 02/05/18 Attending physician: TIKA HARRIS 02/01/18 22:48 Consult to Physician [CONS] Urgent Comment: Dr. Talbot (er dr) spoke with Dr. Gomez Consulting Provider: UMU GOMEZ Physician Instructions: Reason For Exam: esrd, chills, vomiting, cp, recent av surgery 02/02/18 04:42 Consult to Physician [CONS] Routine Comment: Consulting Provider: SUE SIMON Physician Instructions: Reason For Exam: cp 02/02/18 12:38 Consult to Physician [CONS] Routine Comment: Consulting Provider: JASON REESE Physician Instructions: Reason For Exam: Intractable n/v, Gastroparesis? Primary care physician: SOPHIA MATTHEWS Hospitalization Condition: Stable Hospital course: Patient is 37-year-old man with a history of end-stage renal disease on hemodialysis Tuesday was in Tuesday who presents with chest pain pCXR reported as NAF CT abd/pelvis w/o contrast reported as NAF -Chest pains with elevated troponin: consult cardiology -Intractable nausea and vomiting most likely Severe gastroparesis flare: Consulted GI -Hypertension urgency: Treat with IV hydralazine -End-stage renal disease needing hemodialysis: Consult nephrology -unControlled insulin-dependent diabetes mellitus: He is half dose of Lantus and treat with sliding scale insulin -DVT prophylaxis reviewed: scd for now -Lost IV access: consult IV team, use dissolvable Zofran: iv team place peripheral iv line -Non-specific chronically elevated 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 Patiño Disposition: once bp improves and able to tolerate food and/or liquid, will discharge Bp still controlled. Clonidine increase noted, pt has not been taking coreg or norvasc due to n/v. He is only on clonidine patch and ntg patch BG not optimal, will increase SSI, he needs meal time insulin but this is risky because he doesn't always eat due to gastroparesis symptoms, so control is very difficult, a vicious cycle. Regarding Gastroparesis, will discuss the use of Di, prior to meals. I recommend that he goes to [employer], get di roots and make tea. He should drink the tea (or diet di james) prior meals and prn. We discuss foods that he needs to avoid, such as breads, fatty fried foods, broccoli, muffins. We discussed foods that he can eat also. Will discharge Disposition: DC-01 TO HOME OR SELFCARE Time spent for discharge: 35 minutes Core Measure Documentation - Palliative Care Palliative Care/ Comfort Measures: Not Applicable - Core Measures Any of the following diagnoses?: none - VTE Discharge Requirements Deep Vein Thrombosis/Pulmonary Embolism Present on Admission: No Has pt received <5 days of overlap therapy or INR<2.0: No Anticoagulant overlap therapy prescribed at discharge: No Contraindication No Overlap Therapy order at DC: Not Indicated Exam - Physical Exam Narrative exam: GEN: Ill-appearing NAD, AWAKE, ALERT, ORIENTATED x 3 HEENT: NCAT, EOMI, PERRL, OP Clear NECK: supple, no adenopathy, no thyromegaly, no JVD CVS/HEART: RRR, NORMAL S1S2, pulses present bilaterally CHEST/LUNGS: CTA B, Symmetrical chest expansion, good air entry bilaterally GI/Abdomen: soft, +distended, mild epigastric tenderness, good bowel sounds, no guarding or rebound /Bladder: no suprapubic tenderness, no CVA or paraspinal tenderness EXT/Skin: no c/c/e, no obvious rash MSK: FROM x 4 Neuro: CN 2-12 grossly intact, no new focal deficits Psych: calm - Constitutional Vitals: Temp Pulse Resp BP Pulse Ox 98.2 F 95 H 16 139/96 97 02/05/18 09:07 02/05/18 09:07 02/05/18 09:07 02/05/18 09:07 02/05/18 09:07 Plan Activity: other (no strenous activity) Diet: clear liquids, advance as tolerated Special Instructions: record daily BP diary (stop blood pressure medications if top number (systolic) is less than 100), record blood sugar diary (three times a day) Additional Instructions: stop blood pressure medications if top number (systolic ) is less than 100 Follow up with: SOPHIA MATTHEWS MD [Primary Care Provider] - 7 Days Prescriptions: Insulin Glargine [Lantus VIAL] 30 units SQ QHS #1 mo cloNIDine-TTS PATCH [Catapres-Tts Patch] 0.3 mg TD Fr #1 mo Insulin Aspart [NovoLOG Flexpen] 1 dose SQ AC PRN #1 pen PRN Reason: Hyperglycemia Nitroglycerin [Nitro Dur] 0.4 mg TD QDAY@0600 #1 mo
[2018-02-05] MEDS: Renal Caps PO SCH (10:21)
[2018-02-05] MEDS: SODIUM CHLORIDE FLUSH SYRINGE 10 ML IV SCH (10:22)
[2018-02-05] MEDS: NORVASC PO SCH (11:21)
[2018-02-05] MEDS: COREG PO SCH (11:21)
--- NOTE | 2018-02-05 11:47 | Progress Note ---
Assessment and Plan Impression * End stage renal disease * Nausea/vomiting likely secondary to diabetic gastroparesis * Hypertension, uncontrolled * Chest pain - resolved * Type I DM * Anemia secondary to ESRD Recommendations * Continue HD MWF - No acute indication for HD today * UF as tolerated * Consultants' recommendations reviewed * Continue antiHTN medications - BP controlled on home regimen * Tight glycemic control per primary team * Epogen TIW prn * Stable for d/c from a renal standpoint Subjective Date of service: 02/05/18 Principal diagnosis: Nausea and vomiting Interval history: Patient tolerating po - reports intake of liquids. Episode of emesis yesterday but none today. Objective - Vital Signs Vital signs: Vital Signs - 12hr 02/05/18 02/05/18 02/05/18 01:23 06:50 06:51 Temperature Pulse Rate 102 H 95 H 95 H Respiratory Rate Blood Pressure 119/67 104/62 104/62 Blood Pressure [Left] O2 Sat by Pulse Oximetry 02/05/18 09:07 Temperature 98.2 F Pulse Rate 95 H Respiratory 16 Rate Blood Pressure Blood Pressure 139/96 [Left] O2 Sat by Pulse 97 Oximetry - General Appearance General appearance: well-developed, well-nourished EENT: ATNC Respiratory: Present: Clear to Ascultation Cardiology: regular, S1S2 Gastrointestinal: normal, no tenderness, no distended Integumentary: no rash, warm and dry Neurologic: no focal deficit, alert and oriented x3 Musculoskeletal: other (edema) Psychiatric: cooperative - Lab 02/02/18 08:41 02/01/18 20:10 Most recent lab results Calcium 9.3 mg/dL (8.4-10.2) 02/01/18 20:10
[2018-02-05 13:22] VITALS: BP 153/107
== END 2018-02-05 14:30 | disposition home or self-care (01) | DRG 73 ==
LOC: ED 19:00 → 4A 23:28
PROVIDERS: ADMIT Internal Medicine; ATTEND Internal Medicine
PROC: 5A1D70Z Performance of Urinary Filtration, Intermittent, Less than 6 Hours Per Day (ICD-10-PCS; principal; 2018-02-03)
DX: E10.43 Type 1 diabetes mellitus with diabetic autonomic (poly)neuropathy (principal); N18.6 End stage renal disease; R65.10 Systemic inflammatory response syndrome (SIRS) of non-infectious origin without acute organ dysfunction; I12.0 Hypertensive chronic kidney disease with stage 5 chronic kidney disease or end stage renal disease; K31.84 Gastroparesis; I25.10 Atherosclerotic heart disease of native coronary artery without angina pectoris; I25.2 Old myocardial infarction; R61 Generalized hyperhidrosis; I16.0 Hypertensive urgency; D63.1 Anemia in chronic kidney disease; E10.22 Type 1 diabetes mellitus with diabetic chronic kidney disease; Z86.73 Personal history of transient ischemic attack (TIA), and cerebral infarction without residual deficits; Z99.2 Dependence on renal dialysis; Z79.4 Long term (current) use of insulin
CPT/HCPCS: 36415; 71045; 74018; 74176; 80053; 80061; 82140; 82550; 82553; 82805; 82962; 84484; 85025; 85610; 87040; 93005; 93010; 96374; 96375; 96376; J0360; J1170; J1200; J1650; J1815; J2270; J2405; J2543; J2765; J3370; J7030; J7040

== ENCOUNTER 2018-03-03 13:28 | Day surgery (SDC) | payer OTHER, MEDICARE ==
[2018-03-03] MEDS ORDERED: BENADRYL IV ONE (14:21)
[2018-03-03] MEDS ORDERED: PEPCID IV ONE (14:23)
[2018-03-03] MEDS ORDERED: HEPARIN/NS 5000 UNIT/500ML(CATH LAB) 500 ML IR ONE (15:45)
[2018-03-03] MEDS ORDERED: XYLOCAINE 2% INFILTRATI ONE (15:46)
[2018-03-03] MEDS ORDERED: ANCEF/STERILE WATER 2 GM/20 ML 2 GM/20 ML SYRINGE IV ONE (15:46)
[2018-03-03] MEDS ORDERED: NACL 0.9% 250ML 250 ML ONE (15:47)
[2018-03-03] MEDS ORDERED: APRESOLINE ONE (16:06)
[2018-03-03] MEDS: SUBLIMAZE ONE ×2 (16:10→16:24)
[2018-03-03] MEDS: VERSED ONE ×2 (16:10→16:24)
[2018-03-03] MEDS ORDERED: CATHFLO ONE (16:12)
[2018-03-03] MEDS ORDERED: WATER FOR INJ (PF) 10 ML ONE (16:13)
[2018-03-03] MEDS: HEPARIN 10,000 UNITS/10 ML ONE ×2 (16:16→16:53)
[2018-03-03] MEDS ORDERED: SUBLIMAZE ONE (16:26)
[2018-03-03] MEDS ORDERED: VERSED ONE (16:26)
[2018-03-03] MEDS ORDERED: ZOFRAN ONE (17:03)
--- NOTE | 2018-03-03 17:35 | Short Stay Summary ---
Short Stay Documentation Date of service: 03/03/18 Narrative H&P: 37 year old male with clotted left upper extremity AVG who presents for declot. - History H&P: obtained from office - Allergies and Medications Current Medications: Allergies iodine Allergy (Severe, Verified 01/23/18 18:23) Vomiting shellfish derived Allergy (Verified 01/23/18 18:31) Anaphylaxis IV dye Allergy (Severe, Uncoded 01/23/18 18:23) Vomiting Home Medications Medication Instructions Recorded Confirmed Last Taken Type Insulin Glargine [Lantus VIAL] 30 units SQ QHS #1 mo 02/05/18 03/03/18 03/02/18 Rx Vit B Comp C/Folic Acid/Vit D3 1 each PO QDAY #30 02/05/18 03/03/18 03/03/18 05: 30 Rx [Dialyvite 800 Plus D Wafer] cloNIDine-TTS PATCH [Catapres-Tts 0.3 mg TD Fr #1 mo 02/05/18 03/03/18 02/26/18 Rx Patch] Insulin Aspart [NovoLOG Flexpen] 3 units SQ AC PRN 03/03/18 03/03/18 03/03/18 06 :00 History - Physical exam General appearance: no acute distress Lungs: Normal air movement Gastrointestinal: normal - Brief post op/procedure progress note Date of procedure: 03/03/18 Pre-op diagnosis: Thrombosed AVG Post-op diagnosis: same Procedure: LUE AVG declot LUE primary mechanical thrombectomy of the left brachial artery Anesthesia: local (w/ conscious sedation) Surgeon: QUIN VICENTE Estimated blood loss: minimal Condition: stable - Hospital course Hospital course: Ready for discharge - Disposition Condition at discharge: Stable Disposition: DC-01 TO HOME OR SELFCARE - Discharge Diagnoses (1) Arterial thrombosis Status: Acute (2) ESRD (end stage renal disease) on dialysis Status: Acute Short Stay Discharge Plan Activity: advance as tolerated Weight Bearing Status: Weight Bear as Tolerated Diet: renal Wound: keep clean and dry Follow up with: PRIMARY CARE, [Primary Care Provider] - 7 Days
--- NOTE | 2018-03-03 17:36 | Operative Report ---
Operative Report Operative Report: EXAM: 1. Ultrasound guided access of the right AVG towards the venous anastamosis 2. Fistulogram 3. Angioplasty of the right innominate vein with a 12 mm x 60 mm angioplasty balloon 4. tPA infusion throughout the AVG with 4 mg of tPA 5. Angioplasty of the left AVG with an 8 mm x 80 mm angioplasty balloon 6. Trerotola mechanical thrombectomy of the right upper extremity AV graft 7. Graham thrombectomy of the right upper extremity AV graft 8. Ultrasound guided access of the right upper extremity AV graft towards the arterial anastamosis 9. Brachial artery selection in a retrograde fashion with angiography of the right upper extremity 10. Graham thrombectomy of the right upper extremity AV graft 11. Primary mechanical thrombectomy of the right brachial artery INDICATION: THROMBOSED RIGHT ARM AV GRAFT WITH END-STAGE RENAL DISEASE. DATE: 03/03/18 MEDICATIONS: Please refer to nursing documentation for complete list of medications and heparin administration. VERSED AND FENTANYL TITRATED TO MODERATE SEDATION. THE PATIENT WAS MONITORED UNDER CONTINUOUS CARDIOPULMONARY MONITORING THROUGHOUT THE CASE. COMPLICATIONS: NONE IMMEDIATE QUALITY ASSISTANT: QUIN VICENTE MD PROCEDURE: The procedure was discussed with the patient and the risks, benefits, and alternatives were discussed with the patient. Informed consent was obtained. The patient was transported into the angiography suite in stable condition and placed on the angiographic table. The right arm was assessed under real-time ultrasound which demonstrated a thrombosed right arm AV graft. The patient was prepped and draped in a sterile fashion. Lidocaine was used to anesthetize the skin. Under ultrasound guidance, the AV graft was punctured with the needle pointing towards the venous limb. 0.018 inch wire was advanced through the needle and this was exchanged for a transitional dilator. The inner dilator and wire were removed and a 0.035 inch [place] wire was advanced through the transitional dilator. The dilator was exchanged for a 7 Malay short sheath. Angled catheter was advanced over the wire and the wire was advanced into the inferior vena cava under fluoroscopic guidance. Then the wire was removed and the Angled catheter was used to perform a pullback venogram. Digital subtraction venography was performed in the right brachiocephalic vein which demonstrated 30% right brachiocephalic narrowing. The patient was heparinized. Angioplasty was performed of the right innominate vein with a 12 mm x 60 mm angioplasty balloon. Digital subtraction angiography was repeated demonstrating 10% residual narrowing. The catheter was pulled back until clot was encountered. 4 mg of TPA were infused through the length of the clot to the sheath as the arterial anastomosis was manually compressed. Catheter was exchanged for an 8 mm x 8 cm balloon and the venous limb was sequentially venoplasty. Trerotola thrombectomy device was used multiple times through the venous limb. Trerotola device was then removed. Angled catheter and [place] wire were negotiated into the inferior vena cava. The Graham balloon was used to sweep from the sheath to the central veins. The arm was then punctured towards the arterial anastomosis under ultrasound guidance. 0.018 inch wire was advanced through the needle and exchanged for transitional dilator. The inner dilator and wire were removed and a 0.035 inch Glidewire was advanced through the transitional dilator. The dilator was exchanged for 6 Malay short sheath. The angled catheter was advanced over the 0.035 wire and the wire was advanced into the [place] brachial artery in a retrograde fashion. Digital subtraction angiography was performed which demonstrated occlusion of the brachial artery near the anastomosis, as well as proximal and distal to the anastomosis. There was only mild collateral flow passing to the distal most brachial artery from collaterals. This suggests the occlusion had occurred in the last week. Grahma catheter was inflated and use to sweep the anastomosis multiple times, pulling the plug towards the venous limb. Blood was aspirated from both sheaths. Graham catheter was exchanged for the angled catheter and digital subtraction angiography was performed. This demonstrated flow within the graft, with resolution of the proximal brachial artery thrombus, but the distal brachial artery thrombus was still present. There was also moderate narrowing at the anastomosis. 5 mm angioplasty balloon was used to perform angioplasty at the arterial anastomosis. Repeat angiography demonstrated mild residual narrowing. 6 mm angioplasty balloon was used to perform angioplasty at the arterial anastomosis. There is now no residual narrowing. There is prompt flow through the AV graft without evidence of residual narrowing within the graft or throughout the venous outflow. There is still thrombus in the distal brachial artery. Graham was inflated in the proximal brachial artery and arm was sequentially squeezed from the wrist to the dialysis access in order to back bleed the thrombus into the dialysis access. This was performed numerous times. After approximately 4-5 times, all thrombus had resolved. Digital subtraction angiography demonstrated no residual narrowing within the brachial artery proximal or distal to the anastomosis compatible with a successful mechanical thrombectomy of the brachial artery and there was no residual narrowing at the arterial anastomosis, or throughout the AV graft. All the wires were removed. 4-0 Vicryl sutures were used to close the fistula access sites. Dermabond was applied. Pressure was held until hemostasis was achieved. The patient was then transferred to the outpatient recovery area. FINDINGS: Please see the procedure note for the findings. IMPRESSION: 1. Successful pharmacomechanical thrombectomy of the thrombosed right AV graft. 2. Successful venoplasty of the peripheral dialysis access and the central veins. 3. Successful primary mechanical thrombectmoy of the right brachial artery. No residual thrombus in the brachial artery. 4. Final imaging demonstrates no areas of focal stenosis within the AV graft on completion venography. There is no evidence of thrombus within the graft on completion venography.
--- NOTE | 2018-03-03 17:40 | Post Operative Note ---
Date of procedure: 03/03/18 Pre-op diagnosis: LUE AVG thrombosis Post-op diagnosis: other (LUE AVG thrombosis ; brachial artery thrombosis) Findings: evangelical of all arterial flow and graft flow Procedure: 1. Ultrasound guided access of the left AVG towards the venous anastamosis 2. Fistulogram 3. Angioplasty of the left innominate vein with a 12 mm x 60 mm angioplasty balloon 4. tPA infusion throughout the AVG with 4 mg of tPA 5. Angioplasty of the left AVG with an 8 mm x 80 mm angioplasty balloon 6. Trerotola mechanical thrombectomy of the LUE AVG 7. Graham thrombectomy of the LUE AVG 8. Ultrasound guided access of the left AVG towards the arterial anastamosis 9. Brachial artery selection in a retrograde fashion with angiography of the left upper extremity 10. Graham thrombectomy of the LUE AVG 11. Mechanical thrombectomy of the left brachial artery Anesthesia: local (w/ conscious sedation) Surgeon: QUIN VICENTE Estimated blood loss: minimal Condition: stable Disposition: no change
[2018-03-09 13:45] VITALS: BP 114/78
== END 2018-03-03 18:20 | disposition home or self-care (01) ==
LOC: CATHLABREC 13:28
PROVIDERS: ATTEND Radiology Diagnostic Radiology
DX: T82.868A Thrombosis due to vascular prosthetic devices, implants and grafts, initial encounter (principal); Y83.2 Surgical operation with anastomosis, bypass or graft as the cause of abnormal reaction of the patient, or of later complication, without mention of misadventure at the time of the procedure; Z91.041 Radiographic dye allergy status; Z91.013 Allergy to seafood
CPT/HCPCS: 36415; 36905; 76937; 84132; 96374; 99156; 99157; C1725; C1751; C1757; C1769; C1894; J0360; J0690; J1200; J1644; J2250; J2405; J2930; J2997; J3010; J7050; Q9967

== ENCOUNTER 2018-03-22 12:16 | Day surgery (SDC) | payer OTHER, MEDICARE ==
[~2018-03-22 12:16] MED LIST changes: -ANCEF/STERILE WATER 2 GM/20 ML 2 GM/20 ML SYRINGE IV NR; -NACL 0.9% 1000 ML 1,000 ML IV SCH; +SODIUM CHLORIDE FLUSH SYRINGE 10 ML IV SCH
[2018-03-22 13:01] LABS: Basophils # (Auto) 0.1 K/mm3 (0.0-0.1); Basophils % (Auto) 0.5 % (0.0-1.8); Eosinophils # (Auto) 0.3 K/mm3 (0.0-0.4); Eosinophils % (Auto) 2.1 % (0.0-4.3); Hematocrit 24.8 % (35.5-45.6); Hemoglobin 8.1 gm/dl (11.8-15.2); Lymphocytes # (Auto) 2.2 K/mm3 (1.2-5.4); Mean Corpuscular HGB Conc 33 % (32-34); Mean Corpuscular Hemoglobin 31 pg (28-32); Mean Corpuscular Volume 93 fl (84-94); Monocytes # (Auto) 0.8 K/mm3 (0.0-0.8); Monocytes % (Auto) 7.1 % (0.0-7.3); Platelet Count 100 K/mm3 (140-440); Red Blood Count 2.66 M/mm3 (3.65-5.03); Red Cell Distribution Width 17.5 % (13.2-15.2)
[2018-03-22 13:09] LABS: Calcium 8.7 mg/dL (8.4-10.2)
[2018-03-22 13:11] LABS: INR 1.02 (0.87-1.13)
[2018-03-22] MEDS ORDERED: HEPARIN/NS 5000 UNIT/500ML(CATH LAB) 1,000 ML IR ONE (13:52)
[2018-03-22] MEDS ORDERED: VERSED ONE (13:52)
[2018-03-22] MEDS ORDERED: HEPARIN 10,000 UNITS/10 ML ONE (13:52)
[2018-03-22] MEDS ORDERED: SUBLIMAZE ONE (13:52)
[2018-03-22] MEDS ORDERED: XYLOCAINE 2% INFILTRATI ONE (13:52)
[2018-03-22] MEDS ORDERED: NACL 0.9% 500 ML 500 ML ONE (13:58)
[2018-03-22] MEDS ORDERED: ANCEF/STERILE WATER 2 GM/20 ML 0 GM/0 ML SYRINGE IV ONE (13:58)
[2018-03-22] MEDS ORDERED: ZOFRAN IV NR (14:10)
[2018-03-22] MEDS ORDERED: BENADRYL ONE (14:10)
[2018-03-22] MEDS ORDERED: BENADRYL IV ONE (15:00)
--- NOTE | 2018-03-22 16:03 | Short Stay Summary ---
Short Stay Documentation Date of service: 03/22/18 - History Principal diagnosis: Malfunction of dialysis access Past Medical History: dialysis, ESRD Past Surgical History: Other (multiple AVG and fistulas) Social history: no significant social history - Allergies and Medications Current Medications: Allergies iodine Allergy (Severe, Verified 01/23/18 18:23) Vomiting shellfish derived Allergy (Verified 01/23/18 18:31) Anaphylaxis IV dye Allergy (Severe, Uncoded 01/23/18 18:23) Vomiting Home Medications Medication Instructions Recorded Confirmed Last Taken Type Insulin Glargine [Lantus VIAL] 30 units SQ QHS #1 mo 02/05/18 03/22/18 2 Days Ago Rx ~03/04/18 Vit B Comp C/Folic Acid/Vit D3 1 each PO QDAY #30 02/05/18 03/22/18 03/22/18 Rx [Dialyvite 800 Plus D Wafer] Insulin Aspart [NovoLOG Flexpen] 3 units SQ AC PRN 03/03/18 03/22/18 03/22/18 History cloNIDine-TTS PATCH [Catapres-Tts 0.3 mg TD QWEEK 03/22/18 03/22/18 03/19/18 History Patch] Active Medications Methylprednisolone Sodium Succinate (Solu-Medrol) 125 mg IV PREOP NR Stop: 03/22/18 23:00 Last Admin: 03/22/18 14:25 Dose: 125 mg Ondansetron HCl (Zofran) 4 mg IV PREOP NR Stop: 03/22/18 23:11 Last Admin: 03/22/18 14:27 Dose: 4 mg Sodium Chloride (Sodium Chloride Flush Syringe 10 Ml) 10 ml IV PRN SANDRINE - Physical exam General appearance: no acute distress Integumentary: no rash HEENT: Atraumatic Lungs: Normal air movement Breasts: deferred Heart: Regular rate Gastrointestinal: normal Male Genitourinary: deferred Rectal Exam: deferred Extremities: no ischemia, abnormal (thrombosed RUE AVG) - Brief post op/procedure progress note Date of procedure: 03/22/18 Pre-op diagnosis: Malfunctioning dialysis access Post-op diagnosis: same Procedure: Thrombectomy, venoplasty Anesthesia: local Surgeon: QUIN GARCIA Estimated blood loss: minimal Pathology: none Condition: stable - Disposition Condition at discharge: Good Disposition: DC-01 TO HOME OR SELFCARE Short Stay Discharge Plan Activity: advance as tolerated Weight Bearing Status: Weight Bear as Tolerated Diet: regular Wound: keep clean and dry, per your surgeon's advice Follow up with: PRIMARY CARE, [Primary Care Provider] - 7 Days
--- NOTE | 2018-03-22 16:12 | Operative Report ---
Operative Report Operative Report: EXAM: RIGHT UPPER EXTREMITY FISTULOGRAM, THROMBECTOMY WITH VENOPLASTY CLINICAL INDICATION: PATIENT WITH A HISTORY OF THROMBOSED LEFT UPPER EXTREMITY AV GRAFT DATE: 03/22/2018 PROCEDURE: Following an explanation of the risks, benefits and alternatives; written informed consent was obtained. The patient was brought to the angiographic suite and placed in supine position on the examination table. Initial evaluation of the arm demonstrated a thrombosed right upper extremity AV graft. The patient's arm and graft were prepped and draped in the usual sterile fashion. 1% lidocaine was used for anesthesia. Under ultrasound guidance, the graft was cannulated towards the venous anastomosis using a 7 cm 21-gauge needle. A 0.018 guidewire was advanced centrally. The needle was removed and a micro-sheath placed. A 0.018 guidewire was exchanged for a 0.035 guidewire and the micro-sheath exchanged for a 7 [place] vascular sheath. Accessed towards the arterial anastomosis was obtained in a similar fashion and a 6 [place] sheath placed. A 4 [place] sheath was placed over the guidewire through the venous sheath and together the guidewire and catheter were advanced centrally. The central veins are patent although there is a focal area of stenosis within the innominate. This approximately 60%. The graft is thrombosed from stents placed within the venous outflow to the sheath insertion site. Mechanical thrombectomy of the graft was then performed using a Trerotola mechanical thrombectomy device from the sheath to the venous outflow. Vertebral catheter and and guidewire were then advanced through the arterial anastomosis. Together the guidewire and catheter were advanced into the central arteries and angiography performed from the subclavian artery distally. No significant stenosis was identified. Thrombus was identified from the arterial anastomosis to the sheath insertion site. With the guidewire and the brachial artery, a Graham balloon was advanced over the guidewire and used to sweep the arterial plug. The balloon was used multiple times and ultimately, a palpable thrill returned. The Graham balloon was removed and the vertebral catheter advanced over the guidewire. Contrast injection through the vertebral catheter demonstrated some retained thrombus here and there throughout the graft which was then treated using the Trerotola mechanical thrombectomy and Graham balloon sweep the thrombus centrally. Attention was then turned to the central venous stenosis. A guidewire was advanced across a stenosis in a 12 mm balloon deployed. The stenosis reduced to less than 30%. The catheters, guidewires, balloons and she's were removed and hemostasis achieved both access sites using 3-0 Vicryl suture. The patient tolerated the procedure well. There were no immediate post procedure complications. Sedation was performed under the guidance of radiologic nursing. Continuous cardiopulmonary monitoring was utilized. IMPRESSION: 1) Right upper extremity fistulogram demonstrating thrombus from the arterial anastomosis to previously placed stents within the venous outflow. 2) Mechanical thrombectomy as described. 3) venography demonstrating a central lesion of 60% within the innominate. 4) Venoplasty with residual stenosis of less than 30%. A palpable thrill was present at the conclusion of case.
[2018-03-22 16:42] VITALS: BP 150/93
== END 2018-03-22 17:00 | disposition home or self-care (01) ==
LOC: CATHLABREC 12:16
PROVIDERS: ATTEND Radiology Diagnostic Radiology
DX: T82.868A Thrombosis due to vascular prosthetic devices, implants and grafts, initial encounter (principal); N18.6 End stage renal disease; Y83.2 Surgical operation with anastomosis, bypass or graft as the cause of abnormal reaction of the patient, or of later complication, without mention of misadventure at the time of the procedure; Z91.041 Radiographic dye allergy status; Z91.013 Allergy to seafood; Z79.01 Long term (current) use of anticoagulants
CPT/HCPCS: 36415; 36905; 80048; 85025; 85610; 85730; 96374; 96375; 99156; 99157; C1725; C1751; C1757; C1769; C1894; J1200; J1644; J2250; J2405; J2930; J3010; J7040; J0690; Q9967

== ENCOUNTER 2018-04-05 10:02 | Day surgery (SDC) | payer OTHER, MEDICARE ==
[2018-04-05] MEDS ORDERED: BENADRYL IV NR (10:33)
[2018-04-05] MEDS ORDERED: ZOFRAN IV NR (10:33)
[2018-04-05] MEDS ORDERED: PEPCID IV NR (10:35)
[2018-04-05] MEDS ORDERED: HEPARIN 10,000 UNITS/10 ML ONE (11:33)
[2018-04-05] MEDS ORDERED: XYLOCAINE 2% INFILTRATI ONE (11:33)
[2018-04-05] MEDS ORDERED: HEPARIN/NS 5000 UNIT/500ML(CATH LAB) 500 ML IR ONE (11:33)
[2018-04-05] MEDS ORDERED: NACL 0.9% 500 ML 500 ML ONE (11:55)
[2018-04-05] MEDS: VERSED ONE ×2 (12:11→12:38)
[2018-04-05] MEDS: SUBLIMAZE ONE ×2 (12:11→12:38)
--- NOTE | 2018-04-05 12:48 | Short Stay Summary ---
Short Stay Documentation Date of service: 04/05/18 - History Principal diagnosis: Malfunctioning dialysis access Past Medical History: dialysis, ESRD Past Surgical History: Other (multiple fistulas and grafts) Social history: no significant social history - Allergies and Medications Current Medications: Allergies iodine Allergy (Severe, Verified 01/23/18 18:23) Vomiting shellfish derived Allergy (Verified 01/23/18 18:31) Anaphylaxis IV dye Allergy (Severe, Uncoded 01/23/18 18:23) Vomiting Home Medications Medication Instructions Recorded Confirmed Last Taken Type RX: Insulin Glargine [Lantus VIAL] 30 units SQ QHS #1 mo 02/05/18 04/05/1804/04 Rx RX: Vit B Comp C/Folic Acid/Vit D3 1 each PO QDAY #30 02/05/18 04/05/18 Rx [Dialyvite 800 Plus D Wafer] RX: Insulin Aspart [NovoLOG 3 units SQ AC PRN 03/03/18 04/05/18 04/04/18 History Flexpen] RX: cloNIDine-TTS PATCH 0.3 mg TD QWEEK 03/22/18 04/05/18 04/04/18 History [Catapres-Tts Patch] Active Medications Ondansetron HCl (Zofran) 4 mg IV ONCE NR Stop: 04/06/18 11:30 Last Admin: 04/05/18 11:50 Dose: 4 mg - Physical exam General appearance: no acute distress Integumentary: no rash HEENT: Atraumatic Lungs: Normal air movement Breasts: deferred Heart: Regular rate Gastrointestinal: normal Male Genitourinary: deferred Rectal Exam: deferred Neurological: Normal gait, Normal speech - Brief post op/procedure progress note Date of procedure: 04/05/18 Pre-op diagnosis: malfunctioning graft Post-op diagnosis: same Procedure: FGA, Declot Anesthesia: local Surgeon: QUIN GARCIA Estimated blood loss: minimal Pathology: none Condition: stable - Disposition Condition at discharge: Good Disposition: DC-01 TO HOME OR SELFCARE Short Stay Discharge Plan Activity: advance as tolerated Weight Bearing Status: Weight Bear as Tolerated Diet: renal Wound: keep clean and dry, per your surgeon's advice Follow up with: PRIMARY CARE, [Primary Care Provider] - 7 Days
--- NOTE | 2018-04-05 12:53 | Operative Report ---
Operative Report Operative Report: EXAM: RIGHT UPPER EXTREMITY FISTULOGRAM, THROMBECTOMY CLINICAL INDICATION: PATIENT WITH THROMBOSED RIGHT UPPER EXTREMITY AV GRAFT DATE: 04/05/2018 PROCEDURE: Following an expiration of the risks, benefits and alternatives; written informed consent was obtained. The patient was brought to the angiographic suite and placed in supine position on the examination table. Initial ultrasound evaluation of his graft demonstrated thrombus throughout the graft. Patient's right upper arm was prepped and draped in the usual sterile fashion. 1% lidocaine was used for anesthesia. The graft was cannulated towards the venous anastomosis using a 7 cm 21-gauge needle. A 0.018 guidewire was advanced centrally. The needle was removed and a micro-sheath placed. The 0.018 guidewire was exchanged for a 0.035 guidewire and the micro-sheath exchanged for a 7 [place] vascular sheath. Accessed towards the arterial anastomosis was obtained in a similar fashion and a 6 [place] sheath placed towards the arterial anastomosis. A 4 [place] vertebral catheter was advanced over the 0.035 guidewire centrally. The central veins are patent. Again noted is patient's innominate stenosis. There is thrombus extending from previously placed stents within the axillary veins extending to the sheath insertion site. The guidewire was removed and mechanical thrombectomy performed from the previously placed stents to the sheath insertion site using a [employer] mechanical thrombectomy device. A 4 [place] vertebral catheter was then advanced over a 0.035 guidewire through the arterial sheath. The guidewire and catheter were manipulated through the arterial anastomosis. Angiography was performed which demonstrates thrombus extending from the arterial anastomosis to the sheath insertion site. A 5.5 [place] Graham balloon was advanced over the guidewire through the arterial anastomosis in the arterial blood flow to swept free. At this point, flow was present within the lower portion of the graft to the arterial sheath insertion site. The vertebral catheter was again advanced over the guidewire centrally. Contrast was injected as the catheter was withdrawn which demonstrated 80% stenosis within the distal aspect of the axillary vein stents. Angioplasty was performed using a 7 mm x 40 mm conquest balloon at multiple places throughout the venous outflow and in-stent restenosis. Post venoplasty imaging demonstrated reduction of the stenosis within the distal aspect of the stents to less than 20%. There is brisk flow throughout the graft. Both sheaths were then removed and hemostasis achieved using 3-0 Vicryl suture and Surgicel. A sterile dressing was then applied. The patient tolerated the procedure well. There were no immediate post procedure complications. Conscious sedation was performed under the guidance of radiologic nursing. Continuous cardiopulmonary monitoring was utilized. IMPRESSION: 1) Right upper extremity fistulogram demonstrating thrombus from the arterial anastomosis to stents within the axillary vein. 2) Mechanical thrombectomy using Trerotola mechanical thrombectomy device. 3) Venoplasty of in-stent stenosis reducing the stenosis from 80% to less than 20%
[2018-04-05 15:29] VITALS: BP 150/100
== END 2018-04-05 13:40 | disposition home or self-care (01) ==
LOC: CATHLABREC 10:02
PROVIDERS: ATTEND Radiology Diagnostic Radiology
DX: T82.868A Thrombosis due to vascular prosthetic devices, implants and grafts, initial encounter (principal); Y83.2 Surgical operation with anastomosis, bypass or graft as the cause of abnormal reaction of the patient, or of later complication, without mention of misadventure at the time of the procedure; Z91.041 Radiographic dye allergy status; Z91.013 Allergy to seafood; N18.6 End stage renal disease
CPT/HCPCS: 36415; 36905; 84132; 96374; 96375; 99156; 99157; C1725; C1751; C1757; C1769; C1894; J1200; J1644; J2250; J2405; J2930; J3010; J7040; Q9967

== ENCOUNTER 2018-04-14 12:52 | Day surgery (SDC) | payer OTHER, MEDICARE ==
[2018-04-14] MEDS ORDERED: PEPCID IV ONE (13:45)
[2018-04-14] MEDS ORDERED: BENADRYL IV ONE (13:45)
[2018-04-14] MEDS ORDERED: ZOFRAN IV NR (14:00)
[2018-04-14] MEDS ORDERED: HEPARIN/NS 5000 UNIT/500ML(CATH LAB) 1,000 ML IR ONE (14:05)
[2018-04-14] MEDS ORDERED: HEPARIN 10,000 UNITS/10 ML ONE (14:06)
[2018-04-14] MEDS ORDERED: XYLOCAINE 2% INFILTRATI ONE (14:06)
[2018-04-14] MEDS ORDERED: SUBLIMAZE ONE (14:06)
[2018-04-14] MEDS ORDERED: ANCEF/STERILE WATER 2 GM/20 ML 2 GM/20 ML SYRINGE IV ONE (14:07)
[2018-04-14] MEDS ORDERED: HumaLOG SUB-Q ONE ×2 (14:20→14:28)
[2018-04-14] MEDS ORDERED: NACL 0.9% 250ML 250 ML ONE (14:40)
[2018-04-14] MEDS ORDERED: CATHFLO ONE (14:59)
[2018-04-14] MEDS ORDERED: WATER FOR INJ (PF) ONE (14:59)
[2018-04-14] MEDS: SUBLIMAZE ONE ×4 (15:02→16:05)
[2018-04-14] MEDS: VERSED ONE ×4 (15:02→15:30)
--- NOTE | 2018-04-14 16:56 | Short Stay Summary ---
Short Stay Documentation Date of service: 04/14/18 Narrative H&P: 37 year old male with ESRD with AVG thrombosis. This has occured 6 times in the last 2 months. - History Principal diagnosis: AVG thrombosis Past Medical History: diabetes, dialysis Past Surgical History: Other (AVG placement and revision) Social history: no significant social history - Allergies and Medications Current Medications: Allergies iodine Allergy (Severe, Verified 01/23/18 18:23) Vomiting shellfish derived Allergy (Verified 01/23/18 18:31) Anaphylaxis IV dye Allergy (Severe, Uncoded 01/23/18 18:23) Vomiting Home Medications Medication Instructions Recorded Confirmed Last Taken Type Insulin Glargine [Lantus VIAL] 30 units SQ QHS #1 mo 02/05/18 04/14/18 04/13/18 Rx 30units Vit B Comp C/Folic Acid/Vit D3 1 each PO QDAY #30 02/05/18 04/14/18 04/13/18 Rx [Dialyvite 800 Plus D Wafer] 1 tab Insulin Aspart [NovoLOG Flexpen] 3 units SQ AC PRN 03/03/18 04/14/18 04/13/18 History 3 units cloNIDine-TTS PATCH [Catapres-Tts 0.3 mg TD QWEEK 03/22/18 04/14/18 04/09/18 History Patch] Clonidine HCl [Catapres] 0.3 mg PO BID 04/14/18 04/14/18 04/12/18 History 0.3mg Active Medications Methylprednisolone Sodium Succinate (Solu-Medrol) 125 mg IV PREOP NR Stop: 04/14/18 23:59 Last Admin: 04/14/18 14:24 Dose: 125 mg Ondansetron HCl (Zofran) 4 mg IV PREOP NR Stop: 04/14/18 23:59 Last Admin: 04/14/18 14:22 Dose: 4 mg - Physical exam General appearance: no acute distress Lungs: Normal air movement Extremities: abnormal (large scabs on the graft, no fevers, no thrill) - Brief post op/procedure progress note Date of procedure: 04/14/18 Pre-op diagnosis: ESRD with AVG thrombosis Post-op diagnosis: same Procedure: AVG thrombectomy with central and peripheral angioplasty First order selection of the right upper extremity arteries with angiography Surgeon: QUIN VICENTE Estimated blood loss: minimal Condition: stable - Hospital course Hospital course: Tolerated procedure well. No issues. - Disposition Condition at discharge: Stable Disposition: DC-01 TO HOME OR SELFCARE - Discharge Diagnoses (1) Thrombosis of arteriovenous graft Status: Acute (2) ESRD (end stage renal disease) on dialysis Status: Acute (3) ESRD (end stage renal disease) Status: Chronic Short Stay Discharge Plan Activity: advance as tolerated Weight Bearing Status: Weight Bear as Tolerated Diet: renal Wound: other (apply small amt of neosporin to the sites on AVG ; keep dry otherwise ; come to office on tuesday for suture removal ; followup with Dr. Escalante ; followup with Dr. Orr ; start 2.5 mg Eliquis BID tomorrow) Special Instructions: other (start Eliquis 2.5 mg PO BID tomorrow) Follow up with: PRIMARY CAREMD [Primary Care Provider] - 7 Days
--- NOTE | 2018-04-14 17:09 | Operative Report ---
Operative Report Operative Report: EXAM: 1. Ultrasound guided access of the AV graft towards the venous limb. 2. Selection of the right subclavian vein with venography 3. Angioplasty of the SVC, and right innominate vein with 12 mm x 60 mm angioplasty balloon 4. Infusion of 4 mg of TPA throughout the AV graft 5. Angioplasty of the AV graft with an 8 mm x 80 mm angioplasty balloon 6. Trerotola Mechanical thrombectomy of the AV graft 7. Graham sweep of the AV graft from the venous sheath to the central veins 8. Ultrasound guided access of the AV graft towards the arterial limb. 9. Selection of the brachial artery and a retrograde fashion with angiography of the left upper extremity 10. Graham sweep of the AV graft from the arterial anastomosis to the arterial sheath 11. Geritol mechanical thrombectomy of the axillary vein stent graft 12. Angioplasty of the axillary vein stent graft with a 10 mm x 40 mm angioplasty 13. Selection of the right innominate artery, subclavian artery, axillary artery, and brachial artery with angiography of the right upper extremity 14. Angioplasty of the arterial anastomosis with a 6 mm x 40 mm angioplasty, INDICATION: THROMBOSED RIGHT ARM AV GRAFT WITH END-STAGE RENAL DISEASE. DATE: 04/14/18 MEDICATIONS: Please refer to nursing documentation for complete list of medications and heparin administration. VERSED AND FENTANYL TITRATED TO MODERATE SEDATION. THE PATIENT WAS MONITORED UNDER CONTINUOUS CARDIOPULMONARY MONITORING THROUGHOUT THE CASE. COMPLICATIONS: NONE IMMEDIATE FLAVORING MAKER: QUIN VICENTE MD PROCEDURE: The procedure was discussed with the patient and the risks, benefits, and alternatives were discussed with the patient. Informed consent was obtained. The patient was transported into the angiography suite in stable condition and placed on the angiographic table. The right arm was assessed under real-time ultrasound which demonstrated a thrombosed left arm AV graft. The patient was prepped and draped in a sterile fashion. Lidocaine was used to anesthetize the skin. Under ultrasound guidance, the AV graft was punctured with the needle pointing towards the venous limb. 0.018 inch wire was advanced through the needle and this was exchanged for a transitional dilator. The inner dilator and wire were removed and a 0.035 inch Morocho wire was advanced through the transitional dilator. The dilator was exchanged for a 7 Iraqi short sheath. Angled catheter was advanced over the wire and the wire was advanced into the inferior vena cava under fluoroscopic guidance. Then the wire was removed and the Angled catheter was used to perform a pullback venogram. Digital subtraction venography was performed in the right subclavian vein which demonstrated mild 20 percent narrowing of the right innominate vein and SVC. 12 mm x 60 mm angioplasty balloon was used to perform angioplasty of the right innominate vein and SVC. Repeat digital subtraction angiography demonstrated resolution of narrowing. The catheter was pulled back until clot was encountered. 4 mg of TPA were infused through the length of the clot to the sheath as the arterial anastomosis was manually compressed. Catheter was exchanged for an 8 mm x 8 cm balloon and the venous limb was sequentially venoplasty. Trerotola thrombectomy device was used multiple times through the venous limb. Trerotola device was then removed. Angled catheter and Morocho wire were negotiated into the inferior vena cava. The Graham balloon was used to sweep from the sheath to the central veins. The arm was then punctured towards the arterial anastomosis under ultrasound guidance. 0.018 inch wire was advanced through the needle and exchanged for transitional dilator. The inner dilator and wire were removed and a 0.035 inch [place]ocho wire was advanced to the transitional dilator. The dilator was exchanged for 6 Iraqi short sheath. The angled catheter was advanced over the 0.035 wire and the wire was advanced into the [place] brachial artery in a retrograde fashion. Digital subtraction angiography was performed which demonstrated patency of the brachial artery proximal distal to the anastomosis with flow-limiting thrombus in the peripheral portion of the AV graft. Graham catheter was inflated and use to sweep the anastomosis multiple times, pulling the plug towards the venous limb. Blood was aspirated from both sheaths. Graham catheter was exchanged for the angled catheter and digital subtraction angiography was performed. This demonstrated 10% narrowing of the arterial anastomosis but patency of the brachial artery without embolization, and patency of the graft except for thrombus in the distal portion of the axillary vein. Trerotola mechanical thrombectomy devices used to perform mechanical thrombectomy in the axillary vein stent graft multiple times removing the thrombus. Then 10 mm x 40 mm angioplasty balloon is used to perform angioplasty at this location. Digital subtraction angiography demonstrated clearance of thrombus. I then selected the right brachial artery and retrograde fashion, axillary artery in retrograde fashion, subclavian artery and retrograde fashion, and innominate artery and a retrograde fashion. Digital subtraction angiography demonstrated patency of the right innominate artery, right subclavian artery, right axillary artery, and right brachial artery. There is 10% narrowing of the arterial anastomosis. 6 mm x 40 mm angioplasty balloon was used to perform angioplasty across the arterial anastomosis. Digital subtraction angiography then demonstrated 0% residual narrowing. All the wires were removed. 3-0 Vicryl sutures were used to close the fistula access sites. Dermabond was applied. Pressure was held until hemostasis was achieved. I did evaluated the prior access sites which had some macerated skin around them. All of the old sutures were removed. Area was cleaned with Betadine. At one site there was slight separation of the skin with exposed fat. This was closed with 2 interrupted 2-0 Ethilon sutures. The patient was then transferred to the outpatient recovery area. FINDINGS: Please see the procedure note for the findings. IMPRESSION: 1. Successful pharmacomechanical thrombectomy of the thrombosed right AV graft. 2. Successful angioplasty of the peripheral portion of the dialysis access and central portion of the dialysis access. 3. Successful first order selection of the right brachiocephalic arteries with angiography of the right upper extremity. 4. Final imaging demonstrates no areas of focal stenosis within the AV graft on completion venography. There is no evidence of flow-limiting thrombus within the graft on completion venography. PLAN: The patient will be seen in our office on Tuesday for suture removal. The patient was initiated on 2.5 mg of Eliquis BID to attempt to decrease risk of AV graft thrombosis. This will be initiated until patient sees a can dragger for hypercoagulability workup.
[2018-04-14 17:56] VITALS: BP 150/87
== END 2018-04-14 18:27 | disposition home or self-care (01) ==
LOC: CATHLABREC 12:52
PROVIDERS: ATTEND Radiology Diagnostic Radiology
DX: T82.868A Thrombosis due to vascular prosthetic devices, implants and grafts, initial encounter (principal); E11.22 Type 2 diabetes mellitus with diabetic chronic kidney disease; Z79.4 Long term (current) use of insulin; Z91.041 Radiographic dye allergy status; Z91.013 Allergy to seafood; Z79.899 Other long term (current) drug therapy; Y83.2 Surgical operation with anastomosis, bypass or graft as the cause of abnormal reaction of the patient, or of later complication, without mention of misadventure at the time of the procedure; N18.6 End stage renal disease
CPT/HCPCS: 36415; 36905; 36907; 76937; 82962; 84132; 96372; 96374; 96375; 99156; 99157; C1725; C1751; C1757; C1769; C1894; J0690; J1200; J1644; J2250; J2405; J2930; J2997; J3010; J7050; J1815; Q9967

== ENCOUNTER 2018-04-18 09:22 | Inpatient (IN) | payer OTHER, MEDICARE ==
[2018-04-18] MEDS ORDERED: ZOFRAN IV ONE (09:59)
[2018-04-18] MEDS ORDERED: MORPHINE IV ONE (09:59)
[2018-04-18 10:22] LABS: Hematocrit 24.2 % (35.5-45.6); Hemoglobin 7.8 gm/dl (11.8-15.2); Mean Corpuscular HGB Conc 32 % (32-34); Mean Corpuscular Hemoglobin 30 pg (28-32); Mean Corpuscular Volume 92 fl (84-94); Red Blood Count 2.64 M/mm3 (3.65-5.03)
[2018-04-18 10:33] LABS: Albumin 4.4 g/dL (3.9-5); Calcium 9.1 mg/dL (8.4-10.2)
--- NOTE | 2018-04-18 10:36 | Emergency Department Report ---
ED Chest Pain HPI - General Stated Complaint: CHEST PAIN Time Seen by Provider: 04/18/18 09:48 Source: patient, EMS Mode of arrival: Stretcher Limitations: Physical Limitation - History of Present Illness Initial Comments: 37-year-old male presents to the emergency department with complaint of a 2 day history of nausea with vomiting and a one-day history of some midsternal chest pain with some intermittent shortness of breath. He has a history of hypertension, gastroparesis, diabetes, end-stage renal disease on hemodialysis on Tuesday/Tuesday/Tuesday, and coronary artery disease with previous OK but no stents. He gets dialysis done through Dr. Méndez and says that he has not missed any of his recent sessions. He had a penile implant placed last at [facility] or Dr. Pittman secondary to Peyronie' s. He has not taken anything for his current symptoms prior to presentation. Severity scale (0 -10): 7 - Related Data Home Medications Medication Instructions Recorded Confirmed Last Taken Insulin Aspart [NovoLOG Flexpen] 3 units SQ AC PRN 03/03/18 04/18/18 04/13/18 3 units cloNIDine-TTS PATCH [Catapres-Tts 0.3 mg TD QWEEK 03/22/18 04/18/18 04/09/18 Patch] Clonidine HCl [Catapres] 0.3 mg PO BID 04/14/18 04/18/18 04/12/18 0.3mg Previous Rx's Medication Instructions Recorded Last Taken Type Insulin Glargine [Lantus VIAL] 30 units SQ QHS #1 mo 02/05/18 04/13/18 Rx 30units Vit B Comp C/Folic Acid/Vit D3 1 each PO QDAY #30 02/05/18 04/13/18 Rx [Dialyvite 800 Plus D Wafer] 1 tab Allergies Allergy/AdvReac Type Severity Reaction Status Date / Time iodine Allergy Severe Vomiting Verified 01/23/18 18:23 shellfish derived Allergy Anaphylaxis Verified 01/23/18 18:31 IV dye Allergy Severe Vomiting Uncoded 01/23/18 18:23 Heart Score - HEART Score History: Moderately suspicious EKG: Non-specific Age: < 45 Risk factors: > 3 risk factors or hx of atherosclerotic disease Troponin: > 3x normal limit HEART Score: 6 - Critical Actions Critical Actions: 4-6 pts:12-16.6% risk of adverse cardiac event. Should be admitted ED Review of Systems ROS: Stated complaint: CHEST PAIN Other details as noted in HPI Comment: All other systems reviewed and negative Constitutional: denies: chills, fever Eyes: denies: eye pain, eye discharge, vision change Respiratory: shortness of breath. denies: cough Cardiovascular: chest pain. denies: palpitations Gastrointestinal: nausea, vomiting Genitourinary: denies: urgency, dysuria Musculoskeletal: denies: back pain, joint swelling, arthralgia Skin: denies: rash, lesions Neurological: denies: headache, weakness, paresthesias ED Past Medical Hx - Past Medical History Previous Medical History?: Yes Hx Hypertension: Yes (Coreg ) Hx CVA: Yes (TIA's) Hx Heart Attack/AMI: Yes Hx Congestive Heart Failure: No Hx Diabetes: Yes Hx Deep Vein Thrombosis: No Hx Pulmonary Embolism: No Hx GERD: No Hx Liver Disease: No Hx Renal Disease: Yes (M-W-F) Hx Sickle Cell Disease: No Hx Arthritis: No Hx Headaches / Migraines: No Hx Seizures: No Hx Kidney Stones: No Hx Psychiatric Treatment: No Hx Asthma: No Hx COPD: No Hx Tuberculosis: No Hx Dementia: No Hx HIV: No Additional medical history: gastroparesis - Surgical History Past Surgical History?: Yes Hx Coronary Stent: No Hx Open Heart Surgery: No Hx Pacemaker: No Hx Internal Defibrillator: No Hx Cholecystectomy: No Hx Appendectomy: No Hx Breast Surgery: No Additional Surgical History: left eye surgery, right toe amputation, right chest vas cath. GRAFT RIGHT UPPER ARM - Social History Smoking Status: Unknown if ever smoked Substance Use Type: None - Medications Home Medications: Home Medications Medication Instructions Recorded Confirmed Last Taken Type Insulin Glargine [Lantus VIAL] 30 units SQ QHS #1 mo 02/05/18 04/18/18 04/13/18 Rx 30units Vit B Comp C/Folic Acid/Vit D3 1 each PO QDAY #30 02/05/18 04/18/18 04/13/18 Rx [Dialyvite 800 Plus D Wafer] 1 tab Insulin Aspart [NovoLOG Flexpen] 3 units SQ AC PRN 03/03/18 04/18/18 04/13/18 History 3 units cloNIDine-TTS PATCH [Catapres-Tts 0.3 mg TD QWEEK 05/16/18 06/12/18 06/03/18 History Patch] Clonidine HCl [Catapres] 0.3 mg PO BID 04/14/18 04/18/18 04/12/18 History 0.3mg ED Physical Exam - General Limitations: Physical Limitation - Other Other exam information: GENERAL: The patient is well-developed well-nourished. HENT: Normocephalic. Atraumatic. Patient has moist mucous membranes. EYES: Extraocular motions are intact. Pupils equal reactive to light bilaterally. NECK: Supple. Trachea is midline. CHEST/LUNGS: Coarse breath sounds. No tachypnea or accessory muscle use. There is no respiratory distress noted. HEART/CARDIOVASCULAR: Regular. There is mild to moderate tachycardia. There is no murmur. ABDOMEN: Abdomen is soft, nontender. Patient has normal bowel sounds. There is no abdominal distention. SKIN: Skin is warm and dry. NEURO: The patient is awake, alert, and oriented. The patient is cooperative. The patient has no focal neurologic deficits. The patient has normal speech and gait. MUSCULOSKELETAL: There is no tenderness or deformity. There is no limitation range of motion. There is no evidence of acute injury. : The scrotal incisional wound appears to be well-healing without any surrounding erythema or any bleeding or drainage. ED Course Vital Signs 04/18/18 04/18/18 04/18/18 09:36 10:25 11:25 Temperature 98.7 F Pulse Rate 114 H 105 H 105 H Respiratory 18 18 Rate Blood Pressure 196/108 Blood Pressure 198/117 180/111 [Left] O2 Sat by Pulse 100 100 100 Oximetry 04/18/18 04/18/18 04/18/18 12:50 13:00 13:06 Temperature Pulse Rate 114 H 99 H 106 H Respiratory 18 18 18 Rate Blood Pressure Blood Pressure 178/108 166/101 157/98 [Left] O2 Sat by Pulse 97 100 92 Oximetry 04/18/18 04/18/18 13:11 13:15 Temperature Pulse Rate 99 H 96 H Respiratory 10 L 16 Rate Blood Pressure 185/114 Blood Pressure [Left] O2 Sat by Pulse 100 99 Oximetry - Consultations Consultation #1: 04/18/18 14:03 I spoke with the patient's polygraph operator, Dr. Franz, who is aware of the patient' s admission and she will see the patient as a consult for dialysis. - Pulse Oximetry Interpretation Digit-Finger Initial Pulse Oximetry Readin O2 Sat by Pulse Oximetry: 97 Actions Taken: none Additional Comments: normal RUFINA score - Rufina Score Age > 65: (0) No Aspirin use within the Past 7 Days: (0) No 3 or more CAD Risk Factors: (1) Yes 2 or more Angina events in past 24 hrs: (1) Yes Known CAD with more than 50% Stenosis: (1) Yes Elevated Cardiac Markers: (1) Yes ST Deviation Greater than 0.5mm: (0) No RUFINA Score: 4 ED Medical Decision Making - Lab Data Result diagrams: 04/18/18 09:55 04/18/18 09:55 - EKG Data -: EKG Interpreted by Me EKG shows normal: sinus rhythm (PVCs), axis, intervals (prolonged QTC), QRS complexes, ST-T waves (T-wave inversions to the lateral leads unchanged from previous, nonspecific ST-T waves) Rate: tachycardia (119 bpm) - EKG Data When compared to previous EKG there are: no significant change Interpretation: unchanged when compared t (03/06/18) - Radiology Data Radiology results: report reviewed, image reviewed interpreted by me: Chest x-ray does not show any acute process. There are no pleural effusions, obvious pneumonia and there is no pneumothorax. X-ray of the abdomen shows some nonobstructive nonspecific bowel gas. LUNG SCAN, VENTILATION AND PERFUSION: History: Dyspnea. Technique: 5mci of Tc99m MAA was infused for the perfusion images. 15mci XE 133 gas was inhaled for the ventilatory images. Correlation is made with a chest x-ray dated 04/18/18. AP chest was normal. Findings: Inhalation of Xenon gas demonstrates a normal distribution of the activity throughout both lungs. The wash out phases show no focal retention of activity. After injection of Technetium 99m macroaggregated albumin gamma camera imaging of the lungs in multiple projections demonstrates 3 perfusion defects in the right lung and 1 small perfusion defect in the left lower lobe. IMPRESSION: Intermediate to high probability of pulmonary embolus. - Medical Decision Making Patient presented with some chest pain as well as nausea and vomiting. EKG appears unchanged from previous and therefore does not appear to show any acute OK. Patient's first troponin is elevated at 0.5 but this is consistent with his previous troponin levels and the patient is end-stage renal disease on hemodialysis. Chest x-ray does not show any acute process. Abdominal x-ray does not show any obstructive process. Patient appears to have some anemia of chronic kidney disease with hemoglobin of 7.8. More concerning is that he has a leukocytosis of 24,000. 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 He'll be treated empirically with antibiotics. A VQ scan was ordered that came back intermediate to high probability for pulmonary embolism and therefore will be treated with anticoagulation as well. The patient's polygraph operator has been contacted as he may need dialysis tomorrow. The patient has been accepted for admission by the hospitalist, Dr. Patel. - Differential Diagnosis OK, PE, pneumonia, gastroparesis Critical Care Time: No Critical care attestation.: If time is entered above; I have spent that time in minutes in the direct care of this critically ill patient, excluding procedure time. ED Disposition Clinical Impression: Hypertensive urgency, ESRD (end stage renal disease) Chest pain Qualifiers: Chest pain type: unspecified Qualified Code(s): R07.9 - Chest pain, unspecified Pulmonary emboli Qualifiers: Pulmonary embolism type: other Chronicity: acute Acute cor pulmonale presence: without acute cor pulmonale Qualified Code(s): I26.99 - Other pulmonary embolism without acute cor pulmonale Disposition: 09 OP ADMIT IP TO THIS HOSP Is pt being admited?: Yes Condition: Stable Instructions: Chest Pain (ED) Referrals: PRIMARY CARE, [Primary Care Provider] - 3-5 Days Time of Disposition: 14:02
--- NOTE | 2018-04-18 10:42 | XRay Report ---
ABDOMINAL SERIES: History: Chest pain, nausea and vomiting. Erect chest film shows no acute or significant changes involving the heart or lung null. There is no evidence of free air beneath the diaphragms. The gas pattern within the abdomen is unremarkable. There is no evidence of bowel dilatation, significant air-fluid levels, or masses. Organ shadows are unremarkable. IMPRESSION: Abdominal series within normal limits.
[2018-04-18 10:53] LABS: INR 1.02 (0.87-1.13); Partial Thromboplastin Time 20.7 Sec. (24.2-36.6)
--- NOTE | 2018-04-18 11:14 | History and Physical Report ---
History of Present Illness Chief complaint: Im hurting in my chest History of present illness: 37 YO Male with ESRD on HD(M,W,F), HTN, TIA, DM, Gastorparesis, IA presents to ED for evaluation. Pt states that he was last dialyzed on Tuesday. Pt states that he has experienced chest discomfort over the past 2 days with worsening symptoms over the past 1 day. Upon closer evaluation, the patient localizes his pain and discomfort to the epigastric area. Pt also reports nausea, and multiple episodes of vomiting over the past 1 day. Pt seen and evaluated in ED and found to have evidence of Sepsis. Pt acknowledges dysuria. Pt denies fever, chills, CP, Palpitations, Syncope, Hemoptysis, BRBPR, unintentional weight loss , night sweats, prolonged travel/immobility, unilateral leg swelling/calf pain. Pt admitted to medical floor. Past History Past Medical History: acute IA, diabetes, hypertension, stroke Past Surgical History: Other (Right Toe, Left Eye, Penile Implant) Social history: , lives with family. denies: smoking, alcohol abuse, prescription drug abuse Family history: diabetes, hypertension Medications and Allergies Allergies Allergy/AdvReac Type Severity Reaction Status Date / Time iodine Allergy Severe Vomiting Verified 01/23/18 18:23 shellfish derived Allergy Anaphylaxis Verified 01/23/18 18:31 IV dye Allergy Severe Vomiting Uncoded 01/23/18 18:23 Home Medications Medication Instructions Recorded Confirmed Last Taken Type Insulin Glargine [Lantus VIAL] 30 units SQ QHS #1 mo 02/05/18 04/18/18 04/13/18 Rx 30units Vit B Comp C/Folic Acid/Vit D3 1 each PO QDAY #30 02/05/18 04/18/18 04/13/18 Rx [Dialyvite 800 Plus D Wafer] 1 tab Insulin Aspart [NovoLOG Flexpen] 3 units SQ AC PRN 03/03/18 04/18/18 04/13/18 History 3 units cloNIDine-TTS PATCH [Catapres-Tts 0.3 mg TD QWEEK 03/22/18 04/18/18 04/09/18 History Patch] Clonidine HCl [Catapres] 0.3 mg PO BID 04/14/18 04/18/18 04/12/18 History 0.3mg Review of Systems Constitutional: no weight loss, no weight gain, no fever, no chills Ears, nose, mouth and throat: no ear pain, no ear discharge, no tinnitis, no decreased hearing, no nose pain, no nasal congestion Cardiovascular: no chest pain, no orthopnea, no palpitations, no rapid/ irregular heart beat, no edema, no syncope, no lightheadedness Respiratory: no cough, no cough with sputum, no excessive sputum, no hemoptysis , no shortness of breath Gastrointestinal: abdominal pain, nausea, vomiting, no coffee ground emesis, no BRBPR, no melena, no hematochezia, no loss of appetite, no early satiety Genitourinary Male: dysuria, no hematuria, no flank pain, no discharge, no urinary frequency, no urinary hesitancy Rectal: no pain, no incontinence, no bleeding Musculoskeletal: no neck stiffness, no neck pain, no shooting arm pain, no arm numbness/tingling, no low back pain, no shooting leg pain Integumentary: no rash, no pruritis, no redness, no sores, no wounds, no jaundice Neurological: no head injury, no transient paralysis, no paralysis, no weakness , no parathesias, no numbness, no tingling, no seizures Psychiatric: no anxiety, no memory loss, no change in sleep habits, no sleep disturbances, no insomnia, no hypersomnia, no change in appetite Endocrine: no cold intolerance, no heat intolerance, no polyphagia, no excessive thirst, no polydipsia, no polyuria, no nocturia Hematologic/Lymphatic: no easy bruising, no easy bleeding, no lymphadenopathy, no lymphedema Allergic/Immunologic: no urticaria, no allergic rhinitis, no wheezing Exam - Constitutional Vitals: Temp Pulse Resp BP Pulse Ox 98.7 F 114 H 196/108 100 04/18/18 09:36 04/18/18 09:36 04/18/18 09:36 04/18/18 09:36 General appearance: Present: mild distress, obese - EENT Eyes: Present: PERRL ENT: hearing intact, clear oral mucosa - Neck Neck: Present: supple, normal ROM - Respiratory Respiratory effort: normal Respiratory: bilateral: CTA - Cardiovascular Heart Sounds: Present: S1 & S2. Absent: rub, click - Extremities Extremities: pulses symmetrical, No edema Peripheral Pulses: within normal limits - Abdominal General gastrointestinal: Present: soft, non-tender, non-distended, normal bowel sounds Male genitourinary: Present: normal - Integumentary Integumentary: Present: clear, warm, dry - Musculoskeletal Musculoskeletal: gait normal, strength equal bilaterally - Psychiatric Psychiatric: appropriate mood/affect, intact judgment & insight - Neurologic Neurologic: CNII-XII intact, moves all extremities Results - Labs CBC & Chem 7: 04/18/18 09:55 04/18/18 09:55 Labs: Abnormal lab results 04/18/18 04/18/18 04/18/18 Range/Units 09:55 09:55 10:16 WBC 23.7 H (4.5-11.0) K/mm3 RBC 2.64 L (3.65-5.03) M/mm3 Hgb 7.8 L (11.8-15.2) gm/dl Hct 24.2 L (35.5-45.6) % RDW 16.0 H (13.2-15.2) % APTT 20.7 L (24.2-36.6) Sec. Chloride 88.7 L (98-107) mmol/L BUN 31 H (9-20) mg/dL Creatinine 6.4 H (0.8-1.5) mg/dL Glucose 282 H (75-100) mg/dL Troponin T 0.503 H* (0.00-0.029) ng/mL Assessment and Plan - Patient Problems (1) Sepsis Current Visit: Yes Status: Acute Qualifiers: Sepsis type: sepsis due to unspecified organism Qualified Code(s): A41.9 - Sepsis, unspecified organism Plan to address problem: IV antibiotic therapy, blood cultures, IVF resuscitation in 250cc boluses, serial lactic acid, monitor uop q shift, Chest x ray, urinalysis (2) Pulmonary emboli Current Visit: Yes Status: Acute Qualifiers: Pulmonary embolism type: other Chronicity: acute Acute cor pulmonale presence: without acute cor pulmonale Qualified Code(s): I26.99 - Other pulmonary embolism without acute cor pulmonale Plan to address problem: Therapeutic anticoagulation with eliquis. Discussed with pharmacy to clarify dose in patient with ESRD on HD. (3) ESRD (end stage renal disease) Current Visit: Yes Status: Chronic Plan to address problem: Nephrology consulted for dialysis. (4) Hypertensive urgency Current Visit: Yes Status: Acute Plan to address problem: monitor BP q shift, IV hydralazine prn, resume prehospital antihypertensive therapy (5) Diabetes Current Visit: Yes Status: Acute Plan to address problem: ADA diet, insulin, accu check (6) DVT prophylaxis Current Visit: No Status: Acute Plan to address problem: SCD to BLE while in BED
[2018-04-18] MEDS ORDERED: NORMODYNE IV ONE (11:52)
[2018-04-18 11:56] LABS: Basophils % (Manual) 0 % (0.0-1.8); Eosinophils % (Manual) 0 % (0.0-4.3); Total Cells Counted 100
[2018-04-18 11:57] LABS: Anisocytosis 1+; Platelet Count 243 K/mm3 (140-440); Platelet Estimate Cons
[2018-04-18] MEDS ORDERED: NACL 0.9% 1000 ML IV ONE (13:04)
[2018-04-18] MEDS ORDERED: TYLENOL PO PRN (13:04)
[2018-04-18] MEDS ORDERED: PROVENTIL IH PRN (13:04)
[2018-04-18] MEDS ORDERED: ZOFRAN IV PRN ×2 (13:04→23:53)
[2018-04-18] MEDS ORDERED: SODIUM CHLORIDE FLUSH SYRINGE 10 ML IV PRN (13:04)
[2018-04-18] MEDS ORDERED: INSULIN ASPART 3 UNIT SQ PRN (13:09)
--- NOTE | 2018-04-18 13:41 | Nuclear Medicine Report ---
LUNG SCAN, VENTILATION AND PERFUSION: History: Dyspnea. Technique: 5mci of Tc99m MAA was infused for the perfusion images. 15mci XE 133 gas was inhaled for the ventilatory images. Correlation is made with a chest x-ray dated 04/18/18. AP chest was normal. Findings: Inhalation of Xenon gas demonstrates a normal distribution of the activity throughout both lungs. The wash out phases show no focal retention of activity. After injection of Technetium 99m macroaggregated albumin gamma camera imaging of the lungs in multiple projections demonstrates 3 perfusion defects in the right lung and 1 small perfusion defect in the left lower lobe. IMPRESSION: Intermediate to high probability of pulmonary embolus. These findings were discussed with Dr. Owens in the emergency department at 1330 hrs.
[2018-04-18] MEDS ORDERED: D50W (25GM) Syringe IV PRN (13:48)
[2018-04-18] MEDS ORDERED: ZOSYN/NS 4.5GM/100ML 4.5 GM/100 ML VIAL IV SCH (14:00)
[2018-04-18] MEDS: ZOSYN/NS 2.25 GM/50ML 2.25 GM/50 ML BAG IV SCH ×2 (14:04→22:24)
[2018-04-18] MEDS ORDERED: VANCOMYCIN 1,750 MG in NACL 0.9% 500 ML 500 ML IV ONE (14:30)
[2018-04-18] MEDS ORDERED: CATAPRES-TTS PATCH TD SCH (16:00)
[2018-04-18] MEDS: HumaLOG SUB-Q SCH (17:05)
[2018-04-18] MEDS ORDERED: PERCOCET 5/325 ONE (17:11)
[2018-04-18] MEDS ORDERED: PERCOCET 5/325 PO ONE (17:27)
[2018-04-18 17:32] LABS: Chol/HDL Ratio 3.92 %
[2018-04-18] MEDS ORDERED: ELIQUIS PO SCH (22:00)
[2018-04-18] MEDS ORDERED: NON-FORMULARY (Clonidine Hcl [Catapres] 0.3 MG) PO SCH (22:00)
[2018-04-18] MEDS: LANTUS SUB-Q SCH (22:15)
[2018-04-18] MEDS: SODIUM CHLORIDE FLUSH SYRINGE 10 ML IV SCH (22:24)
[2018-04-18] MEDS: CATAPRES PO SCH (23:36)
[2018-04-18] MEDS ORDERED: CARDIZEM ONE (23:40)
[2018-04-18] MEDS ORDERED: CARDIZEM IV ONE (23:50)
[2018-04-18] MEDS ORDERED: REGLAN IV PRN (23:52)
[2018-04-19] MEDS ORDERED: PERCOCET 5/325 PO PRN (00:15)
[2018-04-19] MEDS ORDERED: MORPHINE IV PRN (00:16)
[2018-04-19] MEDS: ZOSYN/NS 2.25 GM/50ML 2.25 GM/50 ML BAG IV SCH ×3 (07:48→21:21)
[2018-04-19] MEDS: HumaLOG SUB-Q SCH ×2 (09:38→13:10)
--- NOTE | 2018-04-19 09:49 | Consultation ---
History of Present Illness - Reason for Consult Consult date: 04/19/18 - History of Present Illness consult dictated. Pt was seen and examined during HD around 5.15PM. BP-172/111,P -101, afebrile. Optimise BP meds Past History Past Medical History: acute [place], diabetes, hypertension, stroke Past Surgical History: Other (Right Toe, Left Eye, Penile Implant) Social history: , lives with family. denies: smoking, alcohol abuse, prescription drug abuse Family history: diabetes, hypertension Medications and Allergies Allergies Allergy/AdvReac Type Severity Reaction Status Date / Time iodine Allergy Severe Vomiting Verified 01/23/18 18:23 shellfish derived Allergy Anaphylaxis Verified 01/23/18 18:31 IV dye Allergy Severe Vomiting Uncoded 01/23/18 18:23 Home Medications Medication Instructions Recorded Confirmed Last Taken Type Insulin Glargine [Lantus VIAL] 30 units SQ QHS #1 mo 02/05/18 04/18/18 04/13/18 Rx 30units Vit B Comp C/Folic Acid/Vit D3 1 each PO QDAY #30 02/05/18 04/18/18 04/13/18 Rx [Dialyvite 800 Plus D Wafer] 1 tab Insulin Aspart [NovoLOG Flexpen] 3 units SQ AC PRN 03/03/18 04/18/18 04/13/18 History 3 units cloNIDine-TTS PATCH [Catapres-Tts 0.3 mg TD QWEEK 03/22/18 04/18/18 04/09/18 History Patch] Clonidine HCl [Catapres] 0.3 mg PO BID 04/14/18 04/18/18 04/12/18 History 0.3mg Active Meds: Active Medications Acetaminophen (Tylenol) 650 mg PO Q4H PRN PRN Reason: Pain MILD(1-3)/Fever >100.5/SOARES Albuterol (Proventil) 2.5 mg IH Q4HRT PRN PRN Reason: Shortness Of Breath Apixaban (Eliquis) 10 mg PO Q12HR [facility]; Protocol Clonidine HCl (Catapres) 0.3 mg PO BID [facility] Last Admin: 04/18/18 23:36 Dose: Not Given Dextrose (D50w (25gm) Syringe) 50 ml IV PRN PRN PRN Reason: Hypoglycemia Piperacillin Sod/Tazobactam Sod (Zosyn/Ns 2.25 Gm/50ml) 2.25 gm in 50 mls @ 100 mls/hr IV Q8HR [facility]; Protocol Last Admin: 04/19/18 07:48 Dose: 100 mls/hr Insulin Glargine (Lantus) 30 units SUB-Q QHS [facility] Last Admin: 04/18/18 22:15 Dose: Not Given Insulin Human Lispro (Humalog) 0 unit SUB-Q AC [facility]; Protocol Last Admin: 04/19/18 09:38 Dose: 3 unit Metoclopramide HCl (Reglan) 10 mg IV Q6H PRN PRN Reason: Nausea And Vomiting Last Admin: 04/19/18 00:06 Dose: 10 mg Morphine Sulfate (Morphine) 2 mg IV Q4H PRN PRN Reason: Pain, Moderate (4-6) Last Admin: 04/19/18 00:23 Dose: 2 mg Multivit/Ca Carb/B Cmplx/FA/Prenat (Renal Caps) 1 cap PO QDAY [facility] Ondansetron HCl (Zofran) 4 mg IV Q4H PRN PRN Reason: Nausea And Vomiting Oxycodone/Acetaminophen (Percocet 5/325) 1 tab PO Q6H PRN PRN Reason: Pain, Moderate (4-6) Sodium Chloride (Sodium Chloride Flush Syringe 10 Ml) 10 ml IV BID [facility] Last Admin: 04/18/18 22:24 Dose: 10 ml Sodium Chloride (Sodium Chloride Flush Syringe 10 Ml) 10 ml IV PRN PRN PRN Reason: LINE FLUSH Exam - Constitutional Vitals: Temp Pulse Resp BP Pulse Ox 98.0 F 101 H 20 183/93 98 04/19/18 08:24 04/19/18 08:24 04/19/18 08:24 04/19/18 08:24 04/19/18 08:24 Results - Labs CBC & Chem 7: 04/18/18 09:55 04/18/18 09:55 Labs: Abnormal lab results 04/18/18 04/18/18 04/18/18 Range/Units 09:55 09:55 10:16 WBC 23.7 H (4.5-11.0) K/mm3 RBC 2.64 L (3.65-5.03) M/mm3 Hgb 7.8 L (11.8-15.2) gm/dl Hct 24.2 L (35.5-45.6) % RDW 16.0 H (13.2-15.2) % Seg Neuts % (Manual) 93.0 H (40.0-70.0) % Lymphocytes % (Manual) 4.0 L (13.4-35.0) % Seg Neutrophils # Man 22.0 H (1.8-7.7) K/mm3 Lymphocytes # (Manual) 0.9 L (1.2-5.4) K/mm3 APTT 20.7 L (24.2-36.6) Sec. Chloride 88.7 L (98-107) mmol/L BUN 31 H (9-20) mg/dL Creatinine 6.4 H (0.8-1.5) mg/dL Glucose 282 H (75-100) mg/dL POC Glucose (70-105) Troponin T 0.503 H* (0.00-0.029) ng/mL Triglycerides 226 H (2-149) mg/dL Cholesterol 208 H (50-199) mg/dL 18 18 Range/Units 17:15 22:18 WBC (4.5-11.0) K/mm3 RBC (3.65-5.03) M/mm3 Hgb (11.8-15.2) gm/dl Hct (35.5-45.6) % RDW (13.2-15.2) % Seg Neuts % (Manual) (40.0-70.0) % Lymphocytes % (Manual) (13.4-35.0) % Seg Neutrophils # Man (1.8-7.7) K/mm3 Lymphocytes # (Manual) (1.2-5.4) K/mm3 APTT (24.2-36.6) Sec. Chloride (98-107) mmol/L BUN (9-20) mg/dL Creatinine (0.8-1.5) mg/dL Glucose (75-100) mg/dL POC Glucose 289 H 289 H (70-105) Troponin T (0.00-0.029) ng/mL Triglycerides (2-149) mg/dL Cholesterol (50-199) mg/dL
[2018-04-19] MEDS ORDERED: NON-FORMULARY (Vit B Comp C/Folic Acid/Vit D3 [Dialyvite 800 Plus D Wafer] 1 EACH) PO SCH (10:00)
[2018-04-19] MEDS ORDERED: NACL 0.9% 100 ML IV PRN (10:01)
[2018-04-19] MEDS: Renal Caps PO SCH (10:11)
[2018-04-19] MEDS: ELIQUIS PO SCH ×2 (10:11→21:22)
[2018-04-19] MEDS: SODIUM CHLORIDE FLUSH SYRINGE 10 ML IV SCH ×2 (13:54→22:51)
--- NOTE | 2018-04-19 16:06 | Progress Note ---
Assessment and Plan Assessment and plan: 37 YO Male with ESRD on HD(M,W,F), HTN, TIA, DM, Gastorparesis, [place] presents to ED for evaluation. Pt states that he was last dialyzed on Tuesday. Pt states that he has experienced chest discomfort over the past 2 days with worsening symptoms over the past 1 day. Upon closer evaluation, the patient localizes his pain and discomfort to the epigastric area. Pt also reports nausea, and multiple episodes of vomiting over the past 1 day. Pt seen and evaluated in ED and found to have evidence of Sepsis. Pt acknowledges dysuria. Pt denies fever, chills, CP, Palpitations, Syncope, Hemoptysis, BRBPR, unintentional weight loss , night sweats, prolonged travel/immobility, unilateral leg swelling/calf pain. Pt admitted to medical floor. (1) Sepsis Current Visit: Yes Status: Acute Qualifiers: Sepsis type: sepsis due to unspecified organism Qualified Code(s): A41.9 - Sepsis, unspecified organism Plan to address problem: IV antibiotic therapy, blood cultures, IVF resuscitation in 250cc boluses, serial lactic acid, monitor uop q shift, Chest x ray, urinalysis (2) Pulmonary emboli Current Visit: Yes Status: Acute Qualifiers: Pulmonary embolism type: other Chronicity: acute Acute cor pulmonale presence: without acute cor pulmonale Qualified Code(s): I26.99 - Other pulmonary embolism without acute cor pulmonale Plan to address problem: Therapeutic anticoagulation with eliquis. Discussed with pharmacy to clarify dose in patient with ESRD on HD. (3) ESRD (end stage renal disease) Current Visit: Yes Status: Chronic Plan to address problem: Nephrology consulted for dialysis. (4) Hypertensive urgency Current Visit: Yes Status: Acute Plan to address problem: monitor BP q shift, IV hydralazine prn, resume prehospital antihypertensive therapy (5) Diabetes Current Visit: Yes Status: Acute Plan to address problem: ADA diet, insulin, accu check (6) DVT prophylaxis Current Visit: No Status: Acute Plan to address problem: SCD to BLE while in BED Hospitalist Physical - Constitutional Vitals: Temp Pulse Resp BP Pulse Ox 98.7 F 99 H 16 172/106 98 04/19/18 14:30 04/19/18 15:15 04/19/18 14:30 04/19/18 15:15 04/19/18 10:44 General appearance: Present: mild distress, obese Results - Labs CBC & Chem 7: 04/18/18 09:55 04/18/18 09:55 Labs: Laboratory Last Values WBC 23.7 K/mm3 (4.5-11.0) H 04/18/18 09:55 RBC 2.64 M/mm3 (3.65-5.03) L 04/18/18 09:55 Hgb 7.8 gm/dl (11.8-15.2) L 04/18/18 09:55 Hct 24.2 % (35.5-45.6) L 04/18/18 09:55 MCV 92 fl (84-94) 04/18/18 09:55 MCH 30 pg (28-32) 04/18/18 09:55 MCHC 32 % (32-34) 04/18/18 09:55 RDW 16.0 % (13.2-15.2) H 04/18/18 09:55 Plt Count 243 K/mm3 (140-440) 04/18/18 09:55 Add Manual Diff Complete 04/18/18 09:55 Total Counted 100 04/18/18 09:55 Seg Neuts % (Manual) 93.0 % (40.0-70.0) H 04/18/18 09:55 Band Neutrophils % 0 % 04/18/18 09:55 Lymphocytes % (Manual) 4.0 % (13.4-35.0) L 04/18/18 09:55 Reactive Lymphs % (Man) 0 % 04/18/18 09:55 Monocytes % (Manual) 3.0 % (0.0-7.3) 04/18/18 09:55 Eosinophils % (Manual) 0 % (0.0-4.3) 04/18/18 09:55 Basophils % (Manual) 0 % (0.0-1.8) 04/18/18 09:55 Metamyelocytes % 0 % 04/18/18 09:55 Myelocytes % 0 % 04/18/18 09:55 Promyelocytes % 0 % 04/18/18 09:55 Blast Cells % 0 % 04/18/18 09:55 Nucleated RBC % Not Reportable 04/18/18 09:55 Seg Neutrophils # Man 22.0 K/mm3 (1.8-7.7) H 04/18/18 09:55 Band Neutrophils # 0.0 K/mm3 04/18/18 09:55 Lymphocytes # (Manual) 0.9 K/mm3 (1.2-5.4) L 04/18/18 09:55 Abs React Lymphs (Man) 0.0 K/mm3 04/18/18 09:55 Monocytes # (Manual) 0.7 K/mm3 (0.0-0.8) 04/18/18 09:55 Eosinophils # (Manual) 0.0 K/mm3 (0.0-0.4) 04/18/18 09:55 Basophils # (Manual) 0.0 K/mm3 (0.0-0.1) 04/18/18 09:55 Metamyelocytes # 0.0 K/mm3 04/18/18 09:55 Myelocytes # 0.0 K/mm3 04/18/18 09:55 Promyelocytes # 0.0 K/mm3 04/18/18 09:55 Blast Cells # 0.0 K/mm3 04/18/18 09:55 WBC Morphology Not Reportable 04/18/18 09:55 Hypersegmented Neuts Not Reportable 04/18/18 09:55 Hyposegmented Neuts Not Reportable 04/18/18 09:55 Hypogranular Neuts Not Reportable 04/18/18 09:55 Smudge Cells Not Reportable 04/18/18 09:55 Toxic Granulation Not Reportable 04/18/18 09:55 Toxic Vacuolation Not Reportable 04/18/18 09:55 Dohle Bodies Not Reportable 04/18/18 09:55 Pelger-Huet Anomaly Not Reportable 04/18/18 09:55 Kate Rods Not Reportable 04/18/18 09:55 Platelet Estimate Cons 04/18/18 09:55 Clumped Platelets Not Reportable 04/18/18 09:55 Plt Clumps, EDTA Not Reportable 04/18/18 09:55 Large Platelets Not Reportable 04/18/18 09:55 Giant Platelets Not Reportable 04/18/18 09:55 Platelet Satelliting Not Reportable 04/18/18 09:55 Plt Morphology Comment Not Reportable 04/18/18 09:55 RBC Morphology Not Reportable 04/18/18 09:55 Dimorphic RBCs Not Reportable 04/18/18 09:55 Polychromasia Not Reportable 04/18/18 09:55 Hypochromasia Not Reportable 04/18/18 09:55 Poikilocytosis Not Reportable 04/18/18 09:55 Anisocytosis 1+ 04/18/18 09:55 Microcytosis Not Reportable 04/18/18 09:55 Macrocytosis Not Reportable 04/18/18 09:55 Spherocytes Not Reportable 04/18/18 09:55 Pappenheimer Bodies Not Reportable 04/18/18 09:55 Sickle Cells Not Reportable 04/18/18 09:55 Target Cells Not Reportable 04/18/18 09:55 Tear Drop Cells Not Reportable 04/18/18 09:55 Ovalocytes Not Reportable 04/18/18 09:55 Helmet Cells Not Reportable 04/18/18 09:55 Bustos-Windham Bodies Not Reportable 04/18/18 09:55 [place] Rings Not Reportable 04/18/18 09:55 Vicky Cells Not Reportable 04/18/18 09:55 Bite Cells Not Reportable 04/18/18 09:55 Crenated Cell Not Reportable 04/18/18 09:55 Elliptocytes Not Reportable 04/18/18 09:55 Acanthocytes (Spur) Not Reportable 04/18/18 09:55 Rouleaux Not Reportable 04/18/18 09:55 Hemoglobin C Crystals Not Reportable 04/18/18 09:55 Schistocytes Not Reportable 04/18/18 09:55 Malaria parasites Not Reportable 04/18/18 09:55 Fredi Bodies Not Reportable 04/18/18 09:55 Hem Pathologist Commnt No 04/18/18 09:55 PT 13.9 Sec. (12.2-14.9) 04/18/18 10:16 INR 1.02 (0.87-1.13) 04/18/18 10:16 APTT 20.7 Sec. (24.2-36.6) L 04/18/18 10:16 Sodium 138 mmol/L (137-145) 04/18/18 09:55 Potassium 3.8 mmol/L (3.6-5.0) 04/18/18 09:55 Chloride 88.7 mmol/L (98-107) L 04/18/18 09:55 Carbon Dioxide 26 mmol/L (22-30) 04/18/18 09:55 Anion Gap 27 mmol/L 04/18/18 09:55 BUN 31 mg/dL (9-20) H 04/18/18 09:55 Creatinine 6.4 mg/dL (0.8-1.5) H 04/18/18 09:55 Estimated GFR 12 ml/min 04/18/18 09:55 BUN/Creatinine Ratio 5 % 04/18/18 09:55 Glucose 282 mg/dL (75-100) H 04/18/18 09:55 POC Glucose 230 (70-105) H 04/19/18 11:46 Lactic Acid 1.40 mmol/L (0.7-2.0) 04/18/18 21:21 Calcium 9.1 mg/dL (8.4-10.2) 04/18/18 09:55 Total Bilirubin 0.70 mg/dL (0.1-1.2) 04/18/18 09:55 AST 17 units/L (5-40) 04/18/18 09:55 ALT 8 units/L (7-56) 04/18/18 09:55 Alkaline Phosphatase 96 units/L (35-129) 04/18/18 09:55 Troponin T 0.503 ng/mL (0.00-0.029) H* 04/18/18 09:55 Total Protein 8.2 g/dL (6.3-8.2) 04/18/18 09:55 Albumin 4.4 g/dL (3.9-5) 04/18/18 09:55 Albumin/Globulin Ratio 1.2 % 04/18/18 09:55 Triglycerides 226 mg/dL (2-149) H 04/18/18 09:55 Cholesterol 208 mg/dL (50-199) H 04/18/18 09:55 LDL Cholesterol Direct 112 mg/dL (50-130) 04/18/18 09:55 HDL Cholesterol 53 mg/dL (40-59) 04/18/18 09:55 Cholesterol/HDL Ratio 3.92 % 04/18/18 09:55 Lipase 22 units/L (13-60) 04/18/18 09:55
[2018-04-19] MEDS ORDERED: VASOTEC IV PRN (16:08)
[2018-04-19] MEDS ORDERED: NACL 0.9 (PRIMING MACHINE ONLY DIALYSIS) MC ONE (17:16)
[2018-04-19] MEDS ORDERED: CATAPRES PO PRN (18:51)
[2018-04-19] MEDS: LANTUS SUB-Q SCH (22:51)
--- NOTE | 2018-04-20 00:50 | Consultation ---
REASON FOR CONSULTATION: Renal failure. HISTORY OF PRESENT ILLNESS: This is a 37-year-old [place] male with ESRD, diabetes with end organ damage, hypertension, was brought to the Emergency Room for having 2-day history of recurrent nausea and vomiting, unable to keep down any medications or food along with midsternal chest pain with intermittent shortness of breath. The patient had penile implant last a week ago at [facility]. Discussed with the ER physician, Dr. Owens. The patient's blood pressure was reported to be 196/108, pulse 114, temperature 98.7, potassium 3.8, creatinine 6.4. WBC count 23.7, hemoglobin 7.8, hematocrit 24.2. Lung V/Q scan was reported to have intermediate to high probability of pulmonary embolus. The patient goes to [facility] 3 times a week. He was recently started on home hemodialysis training for the past 2 weeks. On Tuesday, he had hemodialysis treatment at [facility] home program. PAST MEDICAL HISTORY: Diabetes with diabetic nephropathy, retinopathy, diabetic gastroparesis, left eye retinal detachment, CVA, hypertension. PERSONAL HISTORY: Denies smoking, alcohol or drug abuse. FAMILY HISTORY: Diabetes and hypertension. ALLERGIES: IODINE, SHELLFISH AND IV DYE. CURRENT MEDICATIONS: Clonidine 0.3 mg p.o. b.i.d., insulin, metoclopramide 10 mg q. 6 h., IV Zosyn 2.25 grams q. 8 hours. REVIEW OF SYSTEMS: The patient complains of generalized weakness. Complains of recurrent nausea and vomiting. Vision is poor in the left eye. Denies chest pain at present time, but having some discomfort after having vomiting. Denies abdomen pain. Denies diarrhea. Denies GI bleeding. Denies dysuria or hematuria. Other review of systems reviewed and negative. PHYSICAL EXAMINATION: GENERAL: The patient is alert, oriented, left eye poor vision. Oral mucosa, tongue and lips are dry. NECK: No JVD, no thyroid enlargement. LUNGS: Diminished breath sounds in bases. HEART: S1, S2 regular. No pericardial rub. ABDOMEN: Soft, bowel sounds present. Mild epigastric tenderness noted. No masses palpable. EXTREMITIES: No significant edema. Left upper arm AV access is functioning. LABORATORY DATA: WBC 23.7, hemoglobin 7.8, hematocrit 24.2, platelets 243. INR 1.02. Sodium 138, potassium 3.8, chloride 88, CO2 of 26, BUN 31, creatinine 6.4, glucose 282. Troponin 0.503, cholesterol 208. Triglycerides 226, lipase 22. ASSESSMENT AND PLAN: 1. End-stage renal disease. 2. Hypertensive urgency. 3. Pulmonary embolism. 4. Leukocytosis. 5. Recurrent diabetic gastroparesis. 6. Uncontrolled diabetes. 7. Anemia in chronic kidney disease. 8. Hemodialysis with ultrafiltration as tolerated. Optimize blood pressure medications. Suggest a clonidine patch as the patient cannot hold on the oral medications and parenteral blood pressure medications as needed. Adjust medications per renal function. Thank you for the consultation. JOB# [id number] NANCY/NTS
[2018-04-20] MEDS: ZOSYN/NS 2.25 GM/50ML 2.25 GM/50 ML BAG IV SCH ×3 (06:33→22:19)
[2018-04-20] MEDS: HumaLOG SUB-Q SCH ×4 (07:55→17:17)
[2018-04-20] MEDS: CATAPRES PO SCH (08:10)
[2018-04-20] MEDS: Renal Caps PO SCH (09:19)
[2018-04-20] MEDS: SODIUM CHLORIDE FLUSH SYRINGE 10 ML IV SCH ×2 (09:20→22:21)
[2018-04-20] MEDS: ELIQUIS PO SCH ×2 (09:20→22:20)
--- NOTE | 2018-04-20 09:34 | Progress Note ---
Assessment and Plan - Patient Problems (1) Gastroparesis due to DM Current Visit: No Status: Acute (2) ESRD (end stage renal disease) Current Visit: Yes Status: Chronic Plan to address problem: S/P HD yesterday. HD M/W/F. Was on HHD training recently (3) Chest pain Current Visit: Yes Status: Acute Qualifiers: Chest pain type: unspecified Qualified Code(s): R07.9 - Chest pain, unspecified Plan to address problem: abnormal V/Q scan-on Eliquis (4) Diabetes Current Visit: Yes Status: Acute (5) Hypertensive urgency Current Visit: Yes Status: Acute (6) Anemia in CKD (chronic kidney disease) Current Visit: No Status: Chronic (7) Leucocytosis Current Visit: Yes Status: Acute Plan to address problem: follow up on labs Subjective Date of service: 04/20/18 Interval history: pt is alert, oriented, feeling little better today, nausea, vomitings better Objective - Vital Signs Vital signs: Vital Signs - 12hr 04/19/18 04/20/18 04/20/18 22:00 05:34 07:41 Temperature 97.9 F Pulse Rate 70 Respiratory 20 16 Rate Respiratory 20 Rate [Left Leg] Respiratory 20 Rate [Right Arm ] Blood Pressure 119/80 O2 Sat by Pulse 99 Oximetry - General Appearance General appearance: well-developed EENT: mucous membranes moist Neck: no JVD Respiratory: Present: Decreased Breath Sounds Cardiology: regular Gastrointestinal: normoactive bowel sounds Neurologic: alert and oriented x3 Musculoskeletal: other (no edema, right upper arm AVF has bruit and thrill) Psychiatric: mood/affect appropriate, cooperative - Lab 04/18/18 09:55 04/18/18 09:55 Most recent lab results Calcium 9.1 mg/dL (8.4-10.2) 04/18/18 09:55
--- NOTE | 2018-04-20 13:10 | Progress Note ---
Assessment and Plan dictated no acute gu issue Subjective Date of service: 04/20/18 Principal diagnosis: post implant Objective - Constitutional Vitals: Vital Signs - 12hr 04/20/18 04/20/18 04/20/18 05:34 07:41 10:00 Temperature 97.9 F Pulse Rate 70 Respiratory 20 16 Rate Blood Pressure 119/80 O2 Sat by Pulse 99 97 Oximetry - Labs CBC & Chem 7: 04/18/18 09:55 04/18/18 09:55 Labs: Abnormal lab results 04/19/18 04/20/18 Range/Units 22:24 07:09 POC Glucose 307 H 235 H (70-105)
[2018-04-20] MEDS: LANTUS SUB-Q SCH (22:21)
[2018-04-20] MEDS ORDERED: AMBIEN PO PRN (23:11)
--- NOTE | 2018-04-21 00:14 | Consultation ---
UROLOGY CONSULTATION HISTORY OF PRESENT ILLNESS: The patient is a 37-year-old gentleman, who is 1 week postop 3-piece penile implant. He presented to the hospital with nausea and vomiting and was found to have evidence of pulmonary embolism. He is feeling much better now. He has a history of renal insufficiency. He does make urine. His bowels are moving. He has had intermittent chest discomfort with nausea and vomiting, which is much improved since admission. PAST MEDICAL HISTORY: Previous heart disease, diabetes, hypertension. PAST SURGICAL HISTORY: As mentioned above plus lower extremity surgery, eye surgery. SOCIAL HISTORY: Noncontributory. FAMILY HISTORY: Diabetes, hypertension. MEDICATIONS: Clonidine and insulin. REVIEW OF SYSTEMS: Much improved now. No significant pain. PHYSICAL EXAMINATION: GENERAL: He is awake, alert. He is in no distress. ABDOMEN: Soft, nondistended. Mildly overweight. He has no irregularities. GENITALIA: He has no significant edema. The incision is clean and intact. He had a moderate inflation of the penile implant, which was deflated partially. IMPRESSION: Post-penile implant, pulmonary embolism, doing much better now. The implant looks fine. We partially deflated it. He was given reassurance. I have spoken to Dr. Pittman as well. JOB# [id number] ZOIE/ROCK
[2018-04-21] MEDS: ZOSYN/NS 2.25 GM/50ML 2.25 GM/50 ML BAG IV SCH (05:50)
[2018-04-21] MEDS: HumaLOG SUB-Q SCH ×3 (09:05→18:07)
[2018-04-21] MEDS: ELIQUIS PO SCH (09:05)
[2018-04-21] MEDS: Renal Caps PO SCH (09:06)
[2018-04-21] MEDS: SODIUM CHLORIDE FLUSH SYRINGE 10 ML IV SCH (09:08)
--- NOTE | 2018-04-21 09:10 | Progress Note ---
Assessment and Plan Assessment and plan: 37 YO Male with ESRD on HD(M,W,F), HTN, TIA, DM, Gastorparesis, SC presents to ED for evaluation. pw chest pain, n/v, and dysuria .. Pt acknowledges dysuria but had recent penile implant last week (1) sepsis ruled out, no signs of infection (2) Acute Pulmonary emboli intermediate to high probability of PE on VQ scan continue eliquis (3) ESRD (end stage renal disease) cont HD (4) Hypertensive urgency has clonidine patch on (5) Diabetes ADA diet, insulin, accu check (6)Dysuria likely an expected outcome after penile implant last week Case dw Dr Pierre DVT prophylaxis fully anticoagulated for PE Hospitalist Physical - Constitutional Vitals: Temp Pulse Resp BP Pulse Ox 98.1 F 76 20 102/63 96 04/20/18 20:02 04/20/18 20:02 04/20/18 20:02 04/20/18 20:02 04/20/18 20:02 General appearance: Present: mild distress, obese Results - Labs CBC & Chem 7: 04/18/18 09:55 04/18/18 09:55 Labs: Laboratory Last Values WBC 23.7 K/mm3 (4.5-11.0) H 04/18/18 09:55 RBC 2.64 M/mm3 (3.65-5.03) L 04/18/18 09:55 Hgb 7.8 gm/dl (11.8-15.2) L 04/18/18 09:55 Hct 24.2 % (35.5-45.6) L 04/18/18 09:55 MCV 92 fl (84-94) 04/18/18 09:55 MCH 30 pg (28-32) 04/18/18 09:55 MCHC 32 % (32-34) 04/18/18 09:55 RDW 16.0 % (13.2-15.2) H 04/18/18 09:55 Plt Count 243 K/mm3 (140-440) 04/18/18 09:55 Add Manual Diff Complete 04/18/18 09:55 Total Counted 100 04/18/18 09:55 Seg Neuts % (Manual) 93.0 % (40.0-70.0) H 04/18/18 09:55 Band Neutrophils % 0 % 06/12/18 09:55 Lymphocytes % (Manual) 4.0 % (13.4-35.0) L 04/18/18 09:55 Reactive Lymphs % (Man) 0 % 04/18/18 09:55 Monocytes % (Manual) 3.0 % (0.0-7.3) 04/18/18 09:55 Eosinophils % (Manual) 0 % (0.0-4.3) 04/18/18 09:55 Basophils % (Manual) 0 % (0.0-1.8) 04/18/18 09:55 Metamyelocytes % 0 % 04/18/18 09:55 Myelocytes % 0 % 04/18/18 09:55 Promyelocytes % 0 % 04/18/18 09:55 Blast Cells % 0 % 04/18/18 09:55 Nucleated RBC % Not Reportable 04/18/18 09:55 Seg Neutrophils # Man 22.0 K/mm3 (1.8-7.7) H 04/18/18 09:55 Band Neutrophils # 0.0 K/mm3 04/18/18 09:55 Lymphocytes # (Manual) 0.9 K/mm3 (1.2-5.4) L 04/18/18 09:55 Abs React Lymphs (Man) 0.0 K/mm3 04/18/18 09:55 Monocytes # (Manual) 0.7 K/mm3 (0.0-0.8) 04/18/18 09:55 Eosinophils # (Manual) 0.0 K/mm3 (0.0-0.4) 04/18/18 09:55 Basophils # (Manual) 0.0 K/mm3 (0.0-0.1) 04/18/18 09:55 Metamyelocytes # 0.0 K/mm3 04/18/18 09:55 Myelocytes # 0.0 K/mm3 04/18/18 09:55 Promyelocytes # 0.0 K/mm3 04/18/18 09:55 Blast Cells # 0.0 K/mm3 04/18/18 09:55 WBC Morphology Not Reportable 04/18/18 09:55 Hypersegmented Neuts Not Reportable 04/18/18 09:55 Hyposegmented Neuts Not Reportable 04/18/18 09:55 Hypogranular Neuts Not Reportable 04/18/18 09:55 Smudge Cells Not Reportable 04/18/18 09:55 Toxic Granulation Not Reportable 04/18/18 09:55 Toxic Vacuolation Not Reportable 04/18/18 09:55 Dohle Bodies Not Reportable 04/18/18 09:55 Pelger-Huet Anomaly Not Reportable 04/18/18 09:55 Kate Rods Not Reportable 04/18/18 09:55 Platelet Estimate Cons 04/18/18 09:55 Clumped Platelets Not Reportable 04/18/18 09:55 Plt Clumps, EDTA Not Reportable 04/18/18 09:55 Large Platelets Not Reportable 04/18/18 09:55 Giant Platelets Not Reportable 04/18/18 09:55 Platelet Satelliting Not Reportable 04/18/18 09:55 Plt Morphology Comment Not Reportable 04/18/18 09:55 RBC Morphology Not Reportable 04/18/18 09:55 Dimorphic RBCs Not Reportable 04/18/18 09:55 Polychromasia Not Reportable 04/18/18 09:55 Hypochromasia Not Reportable 04/18/18 09:55 Poikilocytosis Not Reportable 04/18/18 09:55 Anisocytosis 1+ 04/18/18 09:55 Microcytosis Not Reportable 04/18/18 09:55 Macrocytosis Not Reportable 04/18/18 09:55 Spherocytes Not Reportable 04/18/18 09:55 Pappenheimer Bodies Not Reportable 04/18/18 09:55 Sickle Cells Not Reportable 04/18/18 09:55 Target Cells Not Reportable 04/18/18 09:55 Tear Drop Cells Not Reportable 04/18/18 09:55 Ovalocytes Not Reportable 04/18/18 09:55 Helmet Cells Not Reportable 04/18/18 09:55 Bustos-Durand Bodies Not Reportable 04/18/18 09:55 [place] Rings Not Reportable 04/18/18 09:55 Roy Cells Not Reportable 04/18/18 09:55 Bite Cells Not Reportable 04/18/18 09:55 Crenated Cell Not Reportable 04/18/18 09:55 Elliptocytes Not Reportable 04/18/18 09:55 Acanthocytes (Spur) Not Reportable 04/18/18 09:55 Rouleaux Not Reportable 04/18/18 09:55 Hemoglobin C Crystals Not Reportable 04/18/18 09:55 Schistocytes Not Reportable 04/18/18 09:55 Malaria parasites Not Reportable 04/18/18 09:55 Fredi Bodies Not Reportable 04/18/18 09:55 Hem Pathologist Commnt No 04/18/18 09:55 PT 13.9 Sec. (12.2-14.9) 04/18/18 10:16 INR 1.02 (0.87-1.13) 04/18/18 10:16 APTT 20.7 Sec. (24.2-36.6) L 04/18/18 10:16 Sodium 138 mmol/L (137-145) 04/18/18 09:55 Potassium 3.8 mmol/L (3.6-5.0) 04/18/18 09:55 Chloride 88.7 mmol/L (98-107) L 04/18/18 09:55 Carbon Dioxide 26 mmol/L (22-30) 04/18/18 09:55 Anion Gap 27 mmol/L 04/18/18 09:55 BUN 31 mg/dL (9-20) H 04/18/18 09:55 Creatinine 6.4 mg/dL (0.8-1.5) H 04/18/18 09:55 Estimated GFR 12 ml/min 04/18/18 09:55 BUN/Creatinine Ratio 5 % 04/18/18 09:55 Glucose 282 mg/dL (75-100) H 04/18/18 09:55 POC Glucose 156 (70-105) H 04/21/18 08:58 Lactic Acid 1.40 mmol/L (0.7-2.0) 04/18/18 21:21 Calcium 9.1 mg/dL (8.4-10.2) 04/18/18 09:55 Total Bilirubin 0.70 mg/dL (0.1-1.2) 04/18/18 09:55 AST 17 units/L (5-40) 04/18/18 09:55 ALT 8 units/L (7-56) 04/18/18 09:55 Alkaline Phosphatase 96 units/L (35-129) 04/18/18 09:55 Troponin T 0.503 ng/mL (0.00-0.029) H* 04/18/18 09:55 Total Protein 8.2 g/dL (6.3-8.2) 04/18/18 09:55 Albumin 4.4 g/dL (3.9-5) 04/18/18 09:55 Albumin/Globulin Ratio 1.2 % 04/18/18 09:55 Triglycerides 226 mg/dL (2-149) H 04/18/18 09:55 Cholesterol 208 mg/dL (50-199) H 04/18/18 09:55 LDL Cholesterol Direct 112 mg/dL (50-130) 04/18/18 09:55 HDL Cholesterol 53 mg/dL (40-59) 04/18/18 09:55 Cholesterol/HDL Ratio 3.92 % 04/18/18 09:55 Lipase 22 units/L (13-60) 04/18/18 09:55
--- NOTE | 2018-04-21 13:11 | Progress Note ---
Assessment and Plan Impression: * End stage renal disease on HD * Chest pain - resolved * Acute pulmonary embolus * Type I DM * Hypertension * Leukocytosis * s/p Penile implant Plan: * Continue HD MWF * UF as tolerated * Continue antiHTN medications * Anticoagulation per primary team * Renal diet * Binders with meals Subjective Date of service: 04/21/18 Principal diagnosis: post implant Interval history: Patient denies chest pain and SOB. Feels well. Objective - Vital Signs Vital signs: Vital Signs - 12hr 04/21/18 04/21/18 04/21/18 07:55 09:30 09:40 Temperature 98.0 F 97.5 F L Pulse Rate 74 75 74 Respiratory 20 18 Rate Blood Pressure 97/70 128/90 129/87 O2 Sat by Pulse 97 Oximetry 04/21/18 04/21/18 04/21/18 09:45 10:00 10:15 Temperature Pulse Rate 78 85 78 Respiratory Rate Blood Pressure 116/76 118/82 111/70 O2 Sat by Pulse Oximetry 04/21/18 04/21/18 04/21/18 10:30 10:45 11:00 Temperature Pulse Rate 78 77 82 Respiratory Rate Blood Pressure 111/70 120/69 110/66 O2 Sat by Pulse Oximetry 04/21/18 04/21/18 04/21/18 11:15 11:30 11:45 Temperature Pulse Rate 81 78 72 Respiratory Rate Blood Pressure 94/69 111/72 101/57 O2 Sat by Pulse Oximetry - General Appearance General appearance: well-developed, well-nourished EENT: ATNC Respiratory: Present: Clear to Ascultation Cardiology: regular, S1S2 Gastrointestinal: normal, no tenderness, no distended Integumentary: no rash, warm and dry Neurologic: no focal deficit Musculoskeletal: other (no edema) Psychiatric: cooperative - Lab 04/18/18 09:55 04/18/18 09:55 Most recent lab results Calcium 9.1 mg/dL (8.4-10.2) 04/18/18 09:55
--- NOTE | 2018-04-21 14:47 | Discharge Summary ---
Providers - Providers Date of Admission: 04/18/18 13:04 Date of discharge: 04/21/18 Attending physician: ESTER DURAN 04/18/18 11:56 Consult to Physician [CONS] Routine Comment: DR OTERO NOTIFIED 1050 Consulting Provider: DINH OTERO Physician Instructions: Reason For Exam: dialysis 04/20/18 12:04 Consult to Physician [CONS] Routine Comment: Consulting Provider: JAY JAY ALFORD Physician Instructions: Reason For Exam: penile implant, having pain Primary care physician: [employer] Hospitalization Reason for admission: chest pain Condition: Stable Pertinent studies: VQ scan; immediate to high probability for PE Chest x-ray/abdominal series is; normal study Lower extremity venous Doppler; no evidence of DVT Hospital course: 37-year-old male patient with end-stage renal disease on hemodialysis MWF diabetes mellitus was admitted through emergency room with chest pain Patient admitted and symptomatically managed Underwent VQ scan which was high probability for PE Lower extremity venous Doppler negative for DVT Patient was started on anticoagulation changed to Eliquis Symptoms significantly improved Patient was evaluated by nephrology, received HD per schedule Evaluated by urology, as patient had penile implant Symptoms significantly improved Patient was started on Eliquis per protocol Today he is comfortable no new complaints Hemodynamically and clinically stable for discharge Discharge diagnosis; --Pulmonary embolism[high probability for PE on V/Q scan] --End-stage renal disease on hemodialysis --Hypertension --Type 2 diabetes mellitus --Penile implant Disposition: DC-01 TO HOME OR SELFCARE Time spent for discharge: 33 min Core Measure Documentation - Palliative Care Palliative Care/ Comfort Measures: Not Applicable - Core Measures Any of the following diagnoses?: DVT/PE - VTE Discharge Requirements Deep Vein Thrombosis/Pulmonary Embolism Present on Admission: Yes Has pt received <5 days of overlap therapy or INR<2.0: No (not indicated/on Eliquis) Anticoagulant overlap therapy prescribed at discharge: No Contraindication No Overlap Therapy order at DC: Not Indicated (on Eliquis) Exam - Constitutional Vitals: Temp Pulse Resp BP Pulse Ox 98.2 F 81 18 118/71 97 04/21/18 13:00 04/21/18 13:00 04/21/18 13:00 04/21/18 13:00 04/21/18 07:55 General appearance: Present: no acute distress, well-nourished - EENT Eyes: Present: PERRL, EOM intact - Neck Neck: Present: supple, normal ROM - Respiratory Respiratory effort: normal Respiratory: negative: rales, rhonchi, wheezing - Cardiovascular Rhythm: regular Heart Sounds: Present: S1 & S2 - Extremities Extremities: no ischemia, No edema - Abdominal General gastrointestinal: Present: soft, non-tender, non-distended, normal bowel sounds - Integumentary Integumentary: Present: clear, warm - Musculoskeletal Musculoskeletal: strength equal bilaterally - Psychiatric Psychiatric: appropriate mood/affect, cooperative - Neurologic Neurologic: CNII-XII intact, moves all extremities Plan Activity: no restrictions, fall precautions Diet: diabetic, renal Additional Instructions: Advised to follow urologist per schedule. Advised to see private hematology in 1-2 weeks Follow up with: PRIMARY CAREMD [Primary Care Provider] - 3-5 Days MATHEW DOBBS MD [Staff Physician] - 7 Days Prescriptions: Apixaban [Eliquis] 5 mg PO Q12HR #68 tablet
[2018-04-21 18:23] VITALS: BP 152/93
[2018-04-26] MEDS ORDERED: ELIQUIS PO SCH (10:00)
[2018-04-26] MEDS ORDERED: CATAPRES-TTS PATCH TD SCH (10:00)
== END 2018-04-21 18:30 | disposition home or self-care (01) | DRG 175 ==
LOC: ED 09:22 → 3A 13:04
PROVIDERS: ADMIT Internal Medicine; ATTEND Internal Medicine
PROC: 5A1D70Z Performance of Urinary Filtration, Intermittent, Less than 6 Hours Per Day (ICD-10-PCS; principal; 2018-04-19)
PROC: 5A1D70Z Performance of Urinary Filtration, Intermittent, Less than 6 Hours Per Day (ICD-10-PCS; 2018-04-21)
DX: I26.99 Other pulmonary embolism without acute cor pulmonale (principal); N18.6 End stage renal disease; I12.0 Hypertensive chronic kidney disease with stage 5 chronic kidney disease or end stage renal disease; I16.0 Hypertensive urgency; I25.10 Atherosclerotic heart disease of native coronary artery without angina pectoris; K31.84 Gastroparesis; D63.1 Anemia in chronic kidney disease; Z79.899 Other long term (current) drug therapy; Z91.041 Radiographic dye allergy status; Z91.013 Allergy to seafood; Z91.048 Other nonmedicinal substance allergy status; Z86.73 Personal history of transient ischemic attack (TIA), and cerebral infarction without residual deficits; Z89.421 Acquired absence of other right toe(s); Z79.84 Long term (current) use of oral hypoglycemic drugs; Z79.1 Long term (current) use of non-steroidal anti-inflammatories (NSAID); I25.2 Old myocardial infarction; Z99.2 Dependence on renal dialysis; E10.22 Type 1 diabetes mellitus with diabetic chronic kidney disease; E10.43 Type 1 diabetes mellitus with diabetic autonomic (poly)neuropathy; E10.319 Type 1 diabetes mellitus with unspecified diabetic retinopathy without macular edema
CPT/HCPCS: 36415; 74022; 78582; 80053; 80061; 82140; 82962; 83690; 84484; 85007; 85025; 85610; 85730; 93005; 93010; 93970; 94760; 96361; 96374; 96375; A9540; A9558; J1815; J2270; J2405; J2543; J2765; J3370; J7030; J7040

== ENCOUNTER 2018-04-28 07:49 | Emergency (ER) | payer OTHER, MEDICARE ==
[2018-04-28 09:16] LABS: Basophils # (Auto) 0.1 K/mm3 (0.0-0.1); Basophils % (Auto) 0.6 % (0.0-1.8); Eosinophils # (Auto) 0.3 K/mm3 (0.0-0.4); Eosinophils % (Auto) 3.1 % (0.0-4.3); Hematocrit 23.1 % (35.5-45.6); Hemoglobin 7.3 gm/dl (11.8-15.2); Lymphocytes # (Auto) 1.7 K/mm3 (1.2-5.4); Lymphocytes % (Auto) 15.2 % (13.4-35.0); Mean Corpuscular HGB Conc 32 % (32-34); Mean Corpuscular Hemoglobin 29 pg (28-32); Mean Corpuscular Volume 92 fl (84-94); Monocytes # (Auto) 0.9 K/mm3 (0.0-0.8); Monocytes % (Auto) 8.2 % (0.0-7.3); Platelet Count 235 K/mm3 (140-440); Red Cell Distribution Width 15.9 % (13.2-15.2)
[2018-04-28 09:27] LABS: Calcium 8.8 mg/dL (8.4-10.2)
[2018-04-28] MEDS ORDERED: D50W (25GM) Syringe IV ONE ×2 (09:28→09:54)
--- NOTE | 2018-04-28 10:22 | XRay Report ---
CHEST 2 VIEWS INDICATION: Shortness of breath. COMPARISON: 04/18/2018 FINDINGS: Frontal and lateral chest radiographs now demonstrate mild left mid to lower lung horizontal atelectasis. Slight increased right infrahilar subtle density/infiltrate as well. Right hemidiaphragm again slightly elevated. No large pleural effusions or CHF. Stable cardiomediastinal silhouette, multiple right axillary/arm vascular stents, EKG leads and intact bones. CONCLUSION: New mild left lower lung atelectasis and subtle right lung base volume loss/infrahilar pneumonia, as described. Please correlate. Thank you for the opportunity to participate in this patient's care.
--- NOTE | 2018-04-28 10:35 | Emergency Department Report ---
ED General Adult HPI - General Chief complaint: Dyspnea/Respdistress Stated complaint: SOB Time Seen by Provider: 04/28/18 10:08 Source: patient, EMS Mode of arrival: Stretcher Limitations: No Limitations - History of Present Illness Initial comments: Mr. Ventura is 37-year-old male with history of end-stage renal disease and pulmonary embolism. He was recently diagnosed with PE. He is taking Eliquis. He has chest pain and shortness of breath. The symptoms are mild. Unchanged from previous symptoms when we was diagnosed. He also has mild posterior headache. This pain is unchanged from prior headaches. Denies vomiting. He states that he is hungry right now. Symptoms are currently mild. He has left leg pain which is unchanged from prior. Last HD session on yesterday. 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 - Related Data Home Medications Medication Instructions Recorded Confirmed Last Taken Insulin Aspart [NovoLOG Flexpen] 3 units SQ AC PRN 03/03/18 04/18/18 04/13/18 3 units Clonidine HCl [Catapres] 0.3 mg PO BID 04/14/18 04/18/18 04/12/18 0.3mg Previous Rx's Medication Instructions Recorded Last Taken Type Insulin Glargine [Lantus VIAL] 30 units SQ QHS #1 mo 02/05/18 04/13/18 Rx 30units Vit B Comp C/Folic Acid/Vit D3 1 each PO QDAY #30 02/05/18 04/13/18 Rx [Dialyvite 800 Plus D Wafer] 1 tab Apixaban [Eliquis] 5 mg PO Q12HR #68 tablet 04/21/18 Unknown Rx Allergies Allergy/AdvReac Type Severity Reaction Status Date / Time shellfish derived Allergy Anaphylaxis Verified 04/28/18 08:45 iodine AdvReac Severe Vomiting Verified 04/28/18 08:49 IV dye AdvReac Severe Vomiting Uncoded 04/28/18 08:49 ED Review of Systems ROS: Stated complaint: SOB Other details as noted in HPI Comment: All other systems reviewed and negative Constitutional: denies: fever, malaise Respiratory: denies: cough Cardiovascular: chest pain Gastrointestinal: denies: abdominal pain, nausea, vomiting Neurological: headache ED Past Medical Hx - Past Medical History Hx Hypertension: Yes (Coreg ) Hx CVA: Yes (TIA's) Hx Heart Attack/AMI: Yes Hx Congestive Heart Failure: No Hx Diabetes: Yes Hx Deep Vein Thrombosis: No Hx Pulmonary Embolism: No Hx GERD: No Hx Liver Disease: No Hx Renal Disease: Yes (M-W-) Hx Sickle Cell Disease: No Hx Arthritis: No Hx Headaches / Migraines: No Hx Seizures: No Hx Kidney Stones: No Hx Psychiatric Treatment: No Hx Asthma: No Hx COPD: No Hx Tuberculosis: No Hx Dementia: No Hx HIV: No Additional medical history: gastroparesis, PE - Surgical History Hx Coronary Stent: No Hx Open Heart Surgery: No Hx Pacemaker: No Hx Internal Defibrillator: No Hx Cholecystectomy: No Hx Appendectomy: No Hx Breast Surgery: No Additional Surgical History: left eye surgery, right toe amputation, right chest vas cath. GRAFT RIGHT UPPER ARM - Social History Smoking Status: Never Smoker Substance Use Type: None - Medications Home Medications: Home Medications Medication Instructions Recorded Confirmed Last Taken Type Insulin Glargine [Lantus VIAL] 30 units SQ QHS #1 mo 02/05/18 04/18/18 04/13/18 Rx 30units Vit B Comp C/Folic Acid/Vit D3 1 each PO QDAY #30 02/05/18 04/18/18 04/13/18 Rx [Dialyvite 800 Plus D Wafer] 1 tab Insulin Aspart [NovoLOG Flexpen] 3 units SQ AC PRN 03/03/18 04/18/18 04/13/18 History 3 units Clonidine HCl [Catapres] 0.3 mg PO BID 04/14/18 04/18/18 04/12/18 History 0.3mg Apixaban [Eliquis] 5 mg PO Q12HR #68 tablet 04/21/18 Unknown Rx ED Physical Exam - General Limitations: No Limitations General appearance: alert, in no apparent distress, other (sleeping but easily arousable appears very comfortable) - Head Head exam: Present: atraumatic, normocephalic - Eye Eye exam: Present: normal appearance, PERRL - ENT ENT exam: Present: mucous membranes moist - Neck Neck exam: Present: normal inspection. Absent: tenderness, meningismus - Respiratory Respiratory exam: Present: normal lung sounds bilaterally. Absent: respiratory distress, wheezes, rales, rhonchi - Cardiovascular Cardiovascular Exam: Present: regular rate, normal rhythm, normal heart sounds. Absent: bradycardia, tachycardia, systolic murmur, diastolic murmur, rubs, gallop - GI/Abdominal GI/Abdominal exam: Present: soft, normal bowel sounds. Absent: distended, tenderness, guarding, rebound - Rectal Rectal exam: Present: deferred - Extremities Exam Extremities exam: Present: normal inspection - Back Exam Back exam: Present: normal inspection - Neurological Exam Neurological exam: Present: alert, oriented X3 - Psychiatric Psychiatric exam: Present: normal affect, normal mood - Skin Skin exam: Present: warm, dry, intact, normal color. Absent: rash - Other Other exam information: Left leg similar in size to the right leg. 2+ DP pulses intact no tenderness to palpation no erythema ED Course Vital Signs 04/28/18 08:00 Temperature 98.4 F Pulse Rate 95 H Respiratory 18 Rate Blood Pressure 190/95 O2 Sat by Pulse 99 Oximetry ED Medical Decision Making - Lab Data Result diagrams: 04/28/18 08:57 04/28/18 09:02 Laboratory Results - last 24 hr 04/28/18 04/28/18 04/28/18 08:57 09:02 09:02 WBC 11.1 H RBC 2.50 L Hgb 7.3 L Hct 23.1 L MCV 92 MCH 29 MCHC 32 RDW 15.9 H Plt Count 235 Lymph % (Auto) 15.2 [place] % (Auto) 8.2 H Eos % (Auto) 3.1 Baso % (Auto) 0.6 Lymph # 1.7 [place] # 0.9 H Eos # 0.3 Baso # 0.1 Seg Neutrophils % 72.9 H Seg Neutrophils # 8.1 H Sodium 139 Potassium 3.0 L Chloride 92.9 L Carbon Dioxide 31 H Anion Gap 18 BUN 23 H Creatinine 6.5 H Estimated GFR 12 BUN/Creatinine Ratio 4 Glucose 58 L POC Glucose Calcium 8.8 Troponin T 0.652 H* NT-Pro-B Natriuret Pep 8298 H Triglycerides 75 Cholesterol 163 LDL Cholesterol Direct 127 HDL Cholesterol 44 Cholesterol/HDL Ratio 3.70 04/28/18 04/28/18 04/28/18 09:18 10:49 11:03 WBC RBC Hgb Hct MCV MCH MCHC RDW Plt Count Lymph % (Auto) [place] % (Auto) Eos % (Auto) Baso % (Auto) Lymph # [place] # Eos # Baso # Seg Neutrophils % Seg Neutrophils # Sodium Potassium Chloride Carbon Dioxide Anion Gap BUN Creatinine Estimated GFR BUN/Creatinine Ratio Glucose POC Glucose 50 L 102 Calcium Troponin T 0.573 H* NT-Pro-B Natriuret Pep Triglycerides Cholesterol LDL Cholesterol Direct HDL Cholesterol Cholesterol/HDL Ratio - EKG Data 04/28/18 10:34 Time obtained 827 Rate 90 bpm normal sinus rhythm normal axis normal intervals nonspecific T wave pattern. - Medical Decision Making Mr. Ventura presents with several concerns. He has headache, leg pain, chest pain shortness of breath. He admits that these symptoms are not new. I do not see signs of intracranial hemorrhage or ACS. He has down trending troponin levels. No indication of DVT. He appears well. He has slept the majority of his stay in the ED. He is stable for discharge. Upon discharge he is awake alert and insightful. I reviewed chest x-ray and CT results. I reviewed electronic medical record. Chest x-ray showed atelectasis. Patient does not have signs of pneumonia. I do not suspect infectious process. Critical care attestation.: If time is entered above; I have spent that time in minutes in the direct care of this critically ill patient, excluding procedure time. ED Disposition Clinical Impression: ESRD (end stage renal disease) on dialysis, Chest pain, Shortness of breath, Leg pain Disposition: DC-01 TO HOME OR SELFCARE Is pt being admited?: No Does the pt Need Aspirin: No Condition: Stable Instructions: Dyspnea (ED) Referrals: PRIMARY CARE, [Primary Care Provider] - 3-5 Days Time of Disposition: 12:56
--- NOTE | 2018-04-28 10:54 | Cat Scan Report ---
CT HEAD WITHOUT CONTRAST INDICATION: Headache, on Eliquis. COMPARISON: 01/06/2018. FINDINGS: Noncontrast head CT again demonstrates symmetric ventricles and sulci without acute or recent infarct, hemorrhage, mass effect or midline shift. No abnormal extra-axial fluid collections. Posterior fossa structures and basilar cisterns within normal limits. Normal imaged eye globes. Leftward nasal septal bowing and approximately 4 mm leftward nasal septal spur partially imaged as on axial image 1, series 3. Approximately 6 mm left sphenoid sinus mucus retention cyst inferiorly again imaged. Slight left sphenoid sinus mucosal thickening anteriorly. Hypoplastic/aplastic bilateral frontal sinuses. Clear remainder aerated paranasal sinuses and temporal bone air cells with mastoid tips not well pneumatized. Left external auditory canal debris may be directly visualized. Intact calvarium. Normal overlying scalp soft tissues. Small radiopaque dental material incidentally noted. CONCLUSION: No acute intracranial CT abnormality with few other findings, as described. Please correlate. Thank you for the opportunity to participate in this patient's care.
[2018-04-28 11:09] LABS: Chol/HDL Ratio 3.7 %
[2018-04-28 14:10] VITALS: BP 189/90
== END 2018-04-28 13:30 | disposition home or self-care (01) ==
LOC: ED 07:49
DX: E11.22 Type 2 diabetes mellitus with diabetic chronic kidney disease (principal); I12.0 Hypertensive chronic kidney disease with stage 5 chronic kidney disease or end stage renal disease; N18.6 End stage renal disease; Z99.2 Dependence on renal dialysis; R07.9 Chest pain, unspecified; R06.02 Shortness of breath; M79.606 Pain in leg, unspecified; R51 Headache
CPT/HCPCS: 36415; 70450; 71046; 80048; 80061; 82962; 83880; 84484; 85025; 93005; 93010; 96374

== ENCOUNTER 2018-05-05 11:14 | Day surgery (SDC) | payer MEDICARE, OTHER ==
[2018-05-05] MEDS ORDERED: PEPCID IV ONE (12:01)
[2018-05-05] MEDS ORDERED: BENADRYL IV ONE (12:01)
[2018-05-05] MEDS ORDERED: HEPARIN/NS 5000 UNIT/500ML(CATH LAB) 1,000 ML IR ONE (12:51)
[2018-05-05] MEDS ORDERED: NACL 0.9% 250ML 250 ML ONE (13:13)
[2018-05-05] MEDS ORDERED: HEPARIN 10,000 UNITS/10 ML ONE (13:13)
[2018-05-05] MEDS ORDERED: SUBLIMAZE ONE (13:13)
[2018-05-05] MEDS ORDERED: VERSED ONE (13:13)
[2018-05-05] MEDS: ANCEF/STERILE WATER 2 GM/20 ML 2 GM/20 ML SYRINGE IV ONE ×2 (13:29→13:46)
[2018-05-05] MEDS ORDERED: CATHFLO ONE (13:31)
[2018-05-05] MEDS ORDERED: WATER FOR INJ (PF) ONE (13:31)
[2018-05-05] MEDS: XYLOCAINE 2% INFILTRATI ONE ×2 (13:31→13:52)
[2018-05-05] MEDS ORDERED: APRESOLINE ONE (14:17)
--- NOTE | 2018-05-05 14:23 | Short Stay Summary ---
Short Stay Documentation Date of service: 05/05/18 Narrative H&P: 37 year old male with ESRD and RUE thrombosed AVG. Needs thrombectomy and subsequent revision. - History Principal diagnosis: AVG thrombectomy Past Medical History: dialysis - Allergies and Medications Current Medications: Allergies shellfish derived Allergy (Verified 04/28/18 08:45) Anaphylaxis iodine Adverse Reaction (Severe, Verified 04/28/18 08:49) Vomiting IV dye Adverse Reaction (Severe, Uncoded 04/28/18 08:49) Vomiting Home Medications Medication Instructions Recorded Confirmed Last Taken Type Insulin Glargine [Lantus VIAL] 30 units SQ QHS #1 mo 02/05/18 05/05/18 05/04/18 Rx 30 units Vit B Comp C/Folic Acid/Vit D3 1 each PO QDAY #30 02/05/18 05/05/18 05/04/18 Rx [Dialyvite 800 Plus D Wafer] 1 Insulin Aspart [NovoLOG Flexpen] 4 units SQ AC PRN 03/03/18 05/05/18 05/04/18 History 4 units Clonidine HCl [Catapres] 0.3 mg PO BID 04/14/18 05/05/18 05/04/18 History 0.3mg Apixaban [Eliquis] 10 mg PO Q12HR 05/05/18 05/05/18 05/04/18 History 10mg - Physical exam General appearance: no acute distress Lungs: Normal air movement Extremities: normal temperature, normal color, abnormal (thrombosed right AVG) - Brief post op/procedure progress note Date of procedure: 05/05/18 Pre-op diagnosis: ESRD thrombosed RUE AVG Post-op diagnosis: same Procedure: declot RUE AVG with angioplasty Anesthesia: local (w/ conscious sedation) Surgeon: QUIN VICENTE Estimated blood loss: minimal Condition: stable - Hospital course Hospital course: Ready for discharge. Tolerated procedure well. - Disposition Condition at discharge: Stable Disposition: -01 TO HOME OR SELFCARE - Discharge Diagnoses (1) ESRD (end stage renal disease) on dialysis Status: Acute (2) Thrombosis of arteriovenous graft Status: Acute Short Stay Discharge Plan Activity: advance as tolerated Weight Bearing Status: Weight Bear as Tolerated Diet: renal Wound: keep clean and dry Follow up with: PRIMARY CARE, [Primary Care Provider] - 7 Days
--- NOTE | 2018-05-05 14:24 | Operative Report ---
Operative Report Operative Report: EXAM: 1. Ultrasound guided access of the AV graft towards the venous limb. 2. Selection of the right subclavian vein with venography 3. Infusion of 4 mg of TPA throughout the AV graft 4. Angioplasty of the AV graft with an 8 mm x 60 mm angioplasty balloon 5. Trerotola Mechanical thrombectomy of the AV graft 6. Graham sweep of the AV graft from the venous sheath to the central veins 7. Ultrasound guided access of the AV graft towards the arterial limb. 8. Selection of the brachial artery and a retrograde fashion with angiography of the left upper extremity 9. Graham sweep of the AV graft from the arterial anastomosis to the arterial sheath 10. Angioplasty of the arterial anastomosis with a 6 mm x 40 mm angioplasty, INDICATION: THROMBOSED RIGHT ARM AV GRAFT WITH END-STAGE RENAL DISEASE. DATE: 05/05/18 MEDICATIONS: Please refer to nursing documentation for complete list of medications and heparin administration. VERSED AND FENTANYL TITRATED TO MODERATE SEDATION. THE PATIENT WAS MONITORED UNDER CONTINUOUS CARDIOPULMONARY MONITORING THROUGHOUT THE CASE. COMPLICATIONS: NONE IMMEDIATE RN IMMUNOLOGY: QUIN VICENTE MD PROCEDURE: The procedure was discussed with the patient and the risks, benefits, and alternatives were discussed with the patient. Informed consent was obtained. The patient was transported into the angiography suite in stable condition and placed on the angiographic table. The right arm was assessed under real-time ultrasound which demonstrated a thrombosed left arm AV graft. The patient was prepped and draped in a sterile fashion. Lidocaine was used to anesthetize the skin. Under ultrasound guidance, the AV graft was punctured with the needle pointing towards the venous limb. 0.018 inch wire was advanced through the needle and this was exchanged for a transitional dilator. The inner dilator and wire were removed and a 0.035 inch [place] wire was advanced through the transitional dilator. The dilator was exchanged for a 7 [place] short sheath. Angled catheter was advanced over the wire and the wire was advanced into the inferior vena cava under fluoroscopic guidance. Then the wire was removed and the Angled catheter was used to perform a pullback venogram. Digital subtraction venography was performed in the right subclavian vein which demonstrated patent central veins. The catheter was pulled back until clot was encountered. 4 mg of TPA were infused through the length of the clot to the sheath as the arterial anastomosis was manually compressed. Catheter was exchanged for an 8 mm x 6 cm balloon and the venous limb was sequentially venoplasty. Trerotola thrombectomy device was used multiple times through the venous limb. Trerotola device was then removed. Angled catheter and [place] wire were negotiated into the inferior vena cava. The Graham balloon was used to sweep from the sheath to the central veins. The arm was then punctured towards the arterial anastomosis under ultrasound guidance. 0.018 inch wire was advanced through the needle and exchanged for transitional dilator. The inner dilator and wire were removed and a 0.035 inch [place] wire was advanced to the transitional dilator. The dilator was exchanged for 6 [place] short sheath. The angled catheter was advanced over the 0.035 wire and the wire was advanced into the [place] brachial artery in a retrograde fashion. Digital subtraction angiography was performed which demonstrated a small amount of thrombus in the brachial artery distal to the anastomosis with flow-limiting thrombus in the peripheral portion of the AV graft. The rest of the brachial artery was patnet. Graham catheter was then directed distal to the anastamosis. Graham catheter was inflated and use to sweep the anastomosis multiple times, pulling the plug towards the venous limb. Blood was aspirated from both sheaths. Graham catheter was exchanged for the angled catheter and digital subtraction angiography was performed. This demonstrated 30% narrowing of the arterial anastomosis but patency of the brachial artery proximal and distal to the anastamosis. The prior small amount of thrombus in the brachial artery was pulled into the graft without embolization and was cleared. The graft was patent. Axillary vein was patent. I then selected the right brachial artery and retrograde fashion. 6 mm x 40 mm angioplasty balloon was used to perform angioplasty across the arterial anastomosis. Digital subtraction angiography then demonstrated 0% residual narrowing. The brachial artery proximal and distal to the anastamosis was patent. The proximal radial artery, ulnar artery and interosseous artery were patent. All the wires were removed. 3-0 Vicryl sutures were used to close the fistula access sites. Dermabond was applied. Pressure was held until hemostasis was achieved. The patient was then transferred to the outpatient recovery area. FINDINGS: Please see the procedure note for the findings. IMPRESSION: 1. Successful pharmacomechanical thrombectomy of the thrombosed right AV graft. 2. Successful angioplasty of the peripheral portion of the dialysis access. 3. Successful secondary thrombectomy of the brachial artery. 4. Final imaging demonstrates no areas of focal stenosis within the AV graft on completion venography. There is no evidence of thrombus within the graft on completion venography. The brachial artery proximal and distal to the anastamosis was patent. The proximal radial artery, ulnar artery and interosseous artery were patent. PLAN: The patient will be seen in our office to see Dr. Escalante for revision of the right upper extremity AVG for axillary artery inflow.
[2018-05-05] MEDS ORDERED: ZOFRAN ONE (14:35)
[2018-05-05 15:45] VITALS: BP 166/100
== END 2018-05-05 16:20 | disposition home or self-care (01) ==
LOC: CATHLABREC 11:14
PROVIDERS: ATTEND Radiology Diagnostic Radiology
DX: T82.868A Thrombosis due to vascular prosthetic devices, implants and grafts, initial encounter (principal); N18.6 End stage renal disease; Y83.2 Surgical operation with anastomosis, bypass or graft as the cause of abnormal reaction of the patient, or of later complication, without mention of misadventure at the time of the procedure; Z91.041 Radiographic dye allergy status; Z91.013 Allergy to seafood; Z79.4 Long term (current) use of insulin
CPT/HCPCS: 36415; 36905; 76937; 84132; 96374; 96375; 99156; 99157; C1725; C1751; C1757; C1769; C1894; J0360; J0690; J1200; J1644; J2250; J2405; J2930; J2997; J3010; J7050; Q9967

== ENCOUNTER 2018-05-09 17:17 | Emergency (ER) | payer MEDICARE, OTHER ==
[2018-05-09] MEDS ORDERED: ZOFRAN IV ONE (17:55)
--- NOTE | 2018-05-09 17:59 | Emergency Department Report ---
HPI - General Chief Complaint: Dyspnea/Respdistress Time Seen by Provider: 05/09/18 17:46 - HPI HPI: 37-year-old male presents to the emergency department via EMS from home with a complaint of a 2 day history of some shortness of breath, nausea with vomiting and some chills and sweats. The patient has not taken anything for her symptoms prior to presentation. He has a history of end-stage renal disease on hemodialysis that he does at home on Tuesday/Tuesday// Tuesday. He also has history of gastroparesis and hypertension. He recently was found to have a pulmonary embolism in early April and was placed on Eliquis, which he has been taking compliantly. The patient was recently here for a AV dialysis thrombosis that was fixed by vascular. Due to his recurrent issues with thrombosis and embolisms, the patient is following with Dr. Orr. His service dog trainer is Dr. Méndez. He does not have a primary care physician. ED Past Medical Hx - Past Medical History Hx Hypertension: Yes (Coreg ) Hx CVA: Yes (TIA's) Hx Heart Attack/AMI: Yes Hx Congestive Heart Failure: No Hx Diabetes: Yes Hx Deep Vein Thrombosis: No Hx Pulmonary Embolism: No Hx GERD: No Hx Liver Disease: No Hx Renal Disease: Yes (M-W-F) Hx Sickle Cell Disease: No Hx Arthritis: No Hx Headaches / Migraines: No Hx Seizures: No Hx Kidney Stones: No Hx Psychiatric Treatment: No Hx Asthma: No Hx COPD: No Hx Tuberculosis: No Hx Dementia: No Hx HIV: No Additional medical history: gastroparesis, PE - Surgical History Hx Coronary Stent: No Hx Open Heart Surgery: No Hx Pacemaker: No Hx Internal Defibrillator: No Hx Cholecystectomy: No Hx Appendectomy: No Hx Breast Surgery: No Additional Surgical History: left eye surgery, right toe amputation, right chest vas cath. GRAFT RIGHT UPPER ARM - Social History Smoking Status: Never Smoker Substance Use Type: None - Medications Home Medications: Home Medications Medication Instructions Recorded Confirmed Last Taken Type Insulin Glargine [Lantus VIAL] 30 units SQ QHS #1 mo 02/05/18 05/05/18 05/04/18 Rx 30 units Vit B Comp C/Folic Acid/Vit D3 1 each PO QDAY #30 02/05/18 05/05/18 05/04/18 Rx [Dialyvite 800 Plus D Wafer] 1 Insulin Aspart [NovoLOG Flexpen] 4 units SQ AC PRN 03/03/18 05/05/18 05/04/18 History 4 units Clonidine HCl [Catapres] 0.3 mg PO BID 04/14/18 05/05/18 05/04/18 History 0.3mg Apixaban [Eliquis] 10 mg PO Q12HR 05/05/18 05/05/18 05/04/18 History 10mg Potassium Chloride [K-Dur] 20 meq PO QDAY #7 tablet 05/09/18 Unknown Rx ED Review of Systems ROS: Stated complaint: BARB Other details as noted in HPI Comment: All other systems reviewed and negative Constitutional: chills, fever (subjective) Eyes: denies: eye pain, eye discharge, vision change ENT: denies: ear pain, throat pain Respiratory: shortness of breath. denies: orthopnea Cardiovascular: denies: chest pain, palpitations Gastrointestinal: nausea, vomiting Genitourinary: denies: urgency, dysuria Musculoskeletal: denies: back pain, joint swelling, arthralgia Skin: denies: rash, lesions Neurological: denies: headache, weakness, paresthesias Physical Exam - Physical Exam Vital Signs: Vital Signs 05/09/18 17:39 Temperature 98.4 F Pulse Rate 114 H Blood Pressure 151/99 O2 Sat by Pulse 100 Oximetry ED Course Vital Signs 05/09/18 17:39 Temperature 98.4 F Pulse Rate 114 H Blood Pressure 151/99 O2 Sat by Pulse 100 Oximetry ED Medical Decision Making - Lab Data Result diagrams: 05/09/18 18:23 05/09/18 18:23 - EKG Data -: EKG Interpreted by Me EKG shows normal: sinus rhythm, axis, intervals, QRS complexes, ST-T waves (t wave inversions to the lateral leads) - EKG Data When compared to previous EKG there are: no significant change Interpretation: unchanged when compared t (04/18/18) Critical care attestation.: If time is entered above; I have spent that time in minutes in the direct care of this critically ill patient, excluding procedure time. ED Disposition Clinical Impression: ESRD on dialysis, Hypokalemia, Shortness of breath Anemia in chronic kidney disease Qualifiers: Chronic kidney disease stage: on chronic dialysis Qualified Code(s): N18.6 - End stage renal disease; D63.1 - Anemia in chronic kidney disease; Z99.2 - Dependence on renal dialysis Hypertension Qualifiers: Hypertension type: renovascular hypertension Qualified Code(s): I15.0 - Renovascular hypertension Disposition: DC- TO HOME OR SELFCARE Is pt being admited?: No Condition: Stable Instructions: Hypertension (ED), Chronic Kidney Disease (ED), Hypokalemia (ED) , Dyspnea (ED) Additional Instructions: Please take the potassium supplementation prescribed for you. Follow-up with Dr. Méndez in the next few days. Return to the emergency Department with any worsening of your symptoms or any acute distress. Prescriptions: Potassium Chloride [K-Dur] 20 meq PO QDAY #7 tablet Referrals: CLARK MÉNDEZ MD [Staff Physician] - [facility] Time of Disposition: 23:13
--- NOTE | 2018-05-09 18:36 | XRay Report ---
FINAL REPORT PROCEDURE: XR CHEST 1V AP TECHNIQUE: Chest radiograph anteroposterior view. CPT 91871 HISTORY: Shortness of breath. COMPARISON: Chest radiograph dated 02/01/2018. FINDINGS: Heart: Normal. Mediastinum/Vessels: Normal. Lungs/Pleural space: Normal. Bony thorax: No acute osseous abnormality. Life support devices: Stent graft in the right axilla. IMPRESSION: No radiographic evidence of acute cardiopulmonary disease.
[2018-05-09 18:41] LABS: Basophils # (Auto) 0.1 K/mm3 (0.0-0.1); Basophils % (Auto) 0.6 % (0.0-1.8); Eosinophils # (Auto) 0.1 K/mm3 (0.0-0.4); Eosinophils % (Auto) 0.5 % (0.0-4.3); Hemoglobin 7.4 gm/dl (11.8-15.2); Lymphocytes # (Auto) 1.2 K/mm3 (1.2-5.4); Lymphocytes % (Auto) 11.2 % (13.4-35.0); Mean Corpuscular HGB Conc 34 % (32-34); Mean Corpuscular Hemoglobin 30 pg (28-32); Mean Corpuscular Volume 89 fl (84-94); Monocytes # (Auto) 0.7 K/mm3 (0.0-0.8); Monocytes % (Auto) 6.3 % (0.0-7.3); Platelet Count 143 K/mm3 (140-440); Red Blood Count 2.47 M/mm3 (3.65-5.03); Red Cell Distribution Width 15.4 % (13.2-15.2)
[2018-05-09] MEDS ORDERED: XOPENEX IH ONE (18:53)
[2018-05-09 19:00] LABS: Calcium 9.4 mg/dL (8.4-10.2)
[2018-05-09] MEDS ORDERED: K-DUR PO ONE (19:17)
[2018-05-09] MEDS ORDERED: REGLAN IV ONE (19:19)
[2018-05-09] MEDS: KCL 10MEQ/100ML 10 MEQ/100 ML BAG IV SCH ×2 (19:52→20:58)
[2018-05-09] MEDS ORDERED: APRESOLINE IV ONE (19:59)
[2018-05-09] MEDS ORDERED: NORMODYNE IV ONE (22:11)
[2018-05-09 23:28] VITALS: BP 134/74
== END 2018-05-09 23:28 | disposition home or self-care (01) ==
LOC: ED 17:17
DX: I13.2 Hypertensive heart and chronic kidney disease with heart failure and with stage 5 chronic kidney disease, or end stage renal disease (principal); E11.22 Type 2 diabetes mellitus with diabetic chronic kidney disease; N18.6 End stage renal disease; Z99.2 Dependence on renal dialysis; K31.84 Gastroparesis; Z86.711 Personal history of pulmonary embolism; Z79.4 Long term (current) use of insulin
CPT/HCPCS: 36415; 71045; 80048; 85025; 93005; 93010; 96365; 96375; 99284; J0360; J2405; J2765; J3480

== ENCOUNTER 2018-05-10 10:18 | Inpatient (IN) | payer OTHER, MEDICARE ==
[2018-05-10 11:21] LABS: Basophils % (Auto) 0.2 % (0.0-1.8); Hematocrit 21.3 % (35.5-45.6); Hemoglobin 7.1 gm/dl (11.8-15.2); Lymphocytes # (Auto) 0.8 K/mm3 (1.2-5.4); Lymphocytes % (Auto) 7.6 % (13.4-35.0); Mean Corpuscular HGB Conc 34 % (32-34); Mean Corpuscular Hemoglobin 30 pg (28-32); Mean Corpuscular Volume 90 fl (84-94); Monocytes # (Auto) 0.5 K/mm3 (0.0-0.8); Monocytes % (Auto) 5.1 % (0.0-7.3); Platelet Count 150 K/mm3 (140-440); Red Blood Count 2.37 M/mm3 (3.65-5.03); Red Cell Distribution Width 15.3 % (13.2-15.2)
[2018-05-10] MEDS ORDERED: BENADRYL IV ONE (11:23)
--- NOTE | 2018-05-10 11:33 | Emergency Department Report ---
ED General Adult HPI - General Chief complaint: Chest Pain Stated complaint: CHEST PAIN/NV Time Seen by Provider: 05/10/18 10:57 Source: patient, EMS Mode of arrival: Stretcher Limitations: No Limitations - History of Present Illness Initial comments: Mr. Ventura is a 37-year-old male with history of diabetes, end-stage renal disease, gastroparesis. Recently diagnosed with pulmonary embolism. He is currently taking Eliquis. Seen in the ED colleague last night for nausea vomiting chills abdominal pain. He now has chest pain with vomiting. Burning sensation. Epigastric central abdominal pain.He was discharged earlier this morning around 1:00. He was unable to leave the ER parking due to worsening symptoms. 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 Méndez. He began home dialysis only 2 weeks ago. -: Gradual, days(s) (2) - Related Data Home Medications Medication Instructions Recorded Confirmed Last Taken Insulin Aspart [NovoLOG Flexpen] 4 units SQ AC PRN 03/03/18 05/05/18 05/04/18 4 units Clonidine HCl [Catapres] 0.3 mg PO BID 04/14/18 05/05/18 05/04/18 0.3mg Apixaban [Eliquis] 10 mg PO Q12HR 05/05/18 05/05/18 05/04/18 10mg Previous Rx's Medication Instructions Recorded Last Taken Type Insulin Glargine [Lantus VIAL] 30 units SQ QHS #1 mo 02/05/18 05/04/18 Rx 30 units Vit B Comp C/Folic Acid/Vit D3 1 each PO QDAY #30 02/05/18 05/04/18 Rx [Dialyvite 800 Plus D Wafer] 1 Potassium Chloride [K-Dur] 20 meq PO QDAY #7 tablet 05/09/18 Unknown Rx Allergies Allergy/AdvReac Type Severity Reaction Status Date / Time shellfish derived Allergy Anaphylaxis Verified 05/09/18 17:45 iodine AdvReac Severe Vomiting Verified 05/09/18 17:45 IV dye AdvReac Severe Vomiting Uncoded 04/28/18 08:49 ED Review of Systems ROS: Stated complaint: CHEST PAIN/NV Other details as noted in HPI Comment: All other systems reviewed and negative Constitutional: chills, malaise Cardiovascular: chest pain ED Past Medical Hx - Past Medical History Hx Hypertension: Yes (Coreg ) Hx CVA: Yes (TIA's) Hx Heart Attack/AMI: Yes Hx Congestive Heart Failure: No Hx Diabetes: Yes Hx Deep Vein Thrombosis: No Hx Pulmonary Embolism: No Hx GERD: No Hx Liver Disease: No Hx Renal Disease: Yes (M-W-F) Hx Sickle Cell Disease: No Hx Arthritis: No Hx Headaches / Migraines: No Hx Seizures: No Hx Kidney Stones: No Hx Psychiatric Treatment: No Hx Asthma: No Hx COPD: No Hx Tuberculosis: No Hx Dementia: No Hx HIV: No Additional medical history: gastroparesis, PE - Surgical History Hx Coronary Stent: No Hx Open Heart Surgery: No Hx Pacemaker: No Hx Internal Defibrillator: No Hx Cholecystectomy: No Hx Appendectomy: No Hx Breast Surgery: No Additional Surgical History: left eye surgery, right toe amputation, right chest vas cath. GRAFT RIGHT UPPER ARM - Social History Smoking Status: Never Smoker - Medications Home Medications: Home Medications Medication Instructions Recorded Confirmed Last Taken Type Insulin Glargine [Lantus VIAL] 30 units SQ QHS #1 mo 02/05/18 05/05/18 05/04/18 Rx 30 units Vit B Comp C/Folic Acid/Vit D3 1 each PO QDAY #30 02/05/18 05/05/18 05/04/18 Rx [Dialyvite 800 Plus D Wafer] 1 Insulin Aspart [NovoLOG Flexpen] 4 units SQ AC PRN 03/03/18 05/05/18 05/04/18 History 4 units Clonidine HCl [Catapres] 0.3 mg PO BID 04/14/18 05/05/18 05/04/18 History 0.3mg Apixaban [Eliquis] 10 mg PO Q12HR 05/05/18 05/05/18 05/04/18 History 10mg Potassium Chloride [K-Dur] 20 meq PO QDAY #7 tablet 05/09/18 Unknown Rx ED Physical Exam - General Limitations: No Limitations General appearance: alert, in distress, other (clammy diaphoretic appears in severe pain appears ill) - Head Head exam: Present: atraumatic, normocephalic - Eye Eye exam: Present: normal appearance - ENT ENT exam: Present: mucous membranes moist - Neck Neck exam: Present: normal inspection. Absent: tenderness, meningismus - Respiratory Respiratory exam: Present: normal lung sounds bilaterally. Absent: respiratory distress, wheezes, rales, rhonchi, stridor - Cardiovascular Cardiovascular Exam: Present: normal rhythm, tachycardia. Absent: systolic murmur, diastolic murmur, rubs, gallop - GI/Abdominal GI/Abdominal exam: Present: soft, normal bowel sounds. Absent: distended, tenderness, rebound - Rectal Rectal exam: Present: deferred - Extremities Exam Extremities exam: Present: normal inspection - Back Exam Back exam: Present: normal inspection - Neurological Exam Neurological exam: Present: alert, oriented X3 - Psychiatric Psychiatric exam: Present: normal affect, anxious - Skin Skin exam: Present: warm, dry, intact, normal color. Absent: rash ED Course Vital Signs 05/10/18 05/10/18 10:33 10:45 Temperature 98.8 F Pulse Rate 122 H Respiratory 18 Rate Blood Pressure 170/95 ED Medical Decision Making - Lab Data Result diagrams: 05/10/18 10:54 05/10/18 10:54 Abnormal Lab Results 05/10/18 05/10/18 05/10/18 10:54 10:54 10:54 WBC 10.1 RBC 2.37 L Hgb 7.1 L Hct 21.3 L MCV 90 MCH 30 MCHC 34 RDW 15.3 H Plt Count 150 Lymph % (Auto) 7.6 L [place] % (Auto) 5.1 Eos % (Auto) 0.0 Baso % (Auto) 0.2 Lymph # 0.8 L [place] # 0.5 Eos # 0.0 Baso # 0.0 Seg Neutrophils % 87.1 H Seg Neutrophils # 8.8 H Sodium 141 Potassium 3.7 D Chloride 94.0 L Carbon Dioxide 27 Anion Gap 24 BUN 27 H Creatinine 5.9 H D Estimated GFR 13 BUN/Creatinine Ratio 5 Glucose 343 H Calcium 9.1 Troponin T 0.568 H* Amylase 69 Lipase 25 Vital Signs - 24 hr 05/10/18 05/10/18 10:33 10:45 Temperature 98.8 F Pulse Rate 122 H Respiratory 18 Rate Blood Pressure 170/95 - EKG Data EKG shows normal: axis, intervals, QRS complexes Rate: tachycardia - EKG Data 05/10/18 11:32 EKG obtained at 1039 Sinus tachycardia rate of 120 normal axis normal intervals nonspecific T wave pattern no ST elevation diffuse T-wave inversion - Medical Decision Making Generalized malaise with tachycardia chest pain abdominal pain. Anemia noted. Steady decline from January to Today, Hgb 11 with downward trend to 7. DDx: bacteremia, ACS, new PE, esophagitis with gastroparesis With hx of previous SD, may need transfusion. Admitted to hospitalist service. Will need anticoagulation. With elevated lactic acid, broad-spectrum antibiotics are initiated. IVF not indicated with hx ESRD but will give one liter of IVF. Critical Care Time: No Critical care time in (mins) excluding proc time.: 45 Critical care attestation.: If time is entered above; I have spent that time in minutes in the direct care of this critically ill patient, excluding procedure time. ED Disposition Clinical Impression: SIRS (systemic inflammatory response syndrome), Gastroparesis, ESRD (end stage renal disease) Disposition: OP ADMIT IP TO THIS HOSP Is pt being admited?: Yes Does the pt Need Aspirin: No Condition: Stable Time of Disposition: 13:46
[2018-05-10 11:34] LABS: Calcium 9.1 mg/dL (8.4-10.2)
[2018-05-10 11:35] LABS: Lipase 25 units/L (13-60)
[2018-05-10] MEDS ORDERED: MORPHINE IV ONE (11:55)
[2018-05-10] MEDS ORDERED: ATIVAN IV ONE (11:55)
[2018-05-10] MEDS ORDERED: ZOFRAN IV ONE (11:55)
--- NOTE | 2018-05-10 12:00 | XRay Report ---
AP CHEST: HISTORY: Cough, wheezing AP view of the chest demonstrates a normal mediastinal and cardiac contour with clear lungs and normal bony and soft tissue structures. IMPRESSION: Unremarkable AP chest.
[2018-05-10] MEDS ORDERED: NACL 0.9% 1000 ML 1,000 ML IV ONE (13:46)
[2018-05-10] MEDS ORDERED: ZOSYN/NS 4.5GM/100ML 4.5 GM/100 ML VIAL IV SCH (14:00)
[2018-05-10] MEDS ORDERED: TYLENOL PO PRN (18:12)
[2018-05-10] MEDS ORDERED: ZOFRAN IV PRN (18:12)
[2018-05-10] MEDS ORDERED: SODIUM CHLORIDE FLUSH SYRINGE 10 ML IV PRN (18:12)
--- NOTE | 2018-05-10 18:12 | History and Physical Report ---
History of Present Illness Date of examination: 05/10/18 Date of admission: 05/10/18 Chief complaint: CC Persistent vomiting History of present illness: History of Present Illness: Mr. Ventura is a 37-year-old male with history of diabetes, end-stage renal disease, gastroparesis. Recently diagnosed with pulmonary embolism. He is currently taking Eliquis.for PE Seen in the ED last night for nausea vomiting chills abdominal pain. He now has chest pain with vomiting. Burning sensation. Epigastric central abdominal pain.He was discharged earlier this morning around 1:00. He was unable to leave the ER parking due to worsening symptoms. His lay ups assembler is Dr. Méndez. He began home dialysis only 2 weeks ago. Gradual, days(s) (2) Past Medical History Hx Hypertension: Yes (Coreg ) Hx CVA: Yes (TIA's) Hx Heart Attack/AMI: Yes Hx Diabetes: Yes Hx Renal Disease: Yes (M-W-F) Additional medical history: gastroparesis, PE Surgical History Additional Surgical History: left eye surgery, right toe amputation, right chest vas cath. GRAFT RIGHT UPPER ARM Social History Smoking Status: Never Smoker Medications Home Medications: Home Medications Medication Instructions Recorded Confirmed Last Taken Type Insulin Glargine [Lantus VIAL] 30 units SQ QHS #1 mo 02/05/18 05/05/18 05/04/18 Rx 30 units Vit B Comp C/Folic Acid/Vit D3 1 each PO QDAY #30 02/05/18 05/05/18 05/04/18 Rx [Dialyvite 800 Plus D Wafer] 1 Insulin Aspart [NovoLOG Flexpen] 4 units SQ AC PRN 03/03/18 05/05/18 05/04/18 History 4 units Clonidine HCl [Catapres] 0.3 mg PO BID 04/14/18 05/05/18 05/04/18 History 0.3mg Apixaban [Eliquis] 10 mg PO Q12HR 05/05/18 05/05/18 05/04/18 History 10mg Potassium Chloride [K-Dur] 20 meq PO QDAY #7 tablet 05/09/18 Unknown Rx Review of Systems ROS: Stated complaint: CHEST PAIN/NV Other details as noted in HPI Comment: All other systems reviewed and negative Constitutional: chills, malaise Cardiovascular: chest pain Medications and Allergies Allergies Allergy/AdvReac Type Severity Reaction Status Date / Time shellfish derived Allergy Anaphylaxis Verified 05/09/18 17:45 iodine AdvReac Severe Vomiting Verified 05/09/18 17:45 IV dye AdvReac Severe Vomiting Uncoded 04/28/18 08:49 Home Medications Medication Instructions Recorded Confirmed Last Taken Type Insulin Glargine [Lantus VIAL] 30 units SQ QHS #1 mo 02/05/18 05/11/18 05/09/18 22:00 Rx Insulin Aspart [NovoLOG Flexpen] 4 units SQ AC PRN 03/03/18 05/11/18 05/06/18 08 :00 History Clonidine HCl [Catapres] 0.3 mg PO BID 04/14/18 05/11/18 05/09/18 22:00 History Apixaban [Eliquis] 5 mg PO Q12HR 05/05/18 05/11/18 05/10/18 10:00 History Potassium Chloride [K-Dur] 20 meq PO QDAY #7 tablet 05/09/18 05/11/18 05/09/18 22:00 Rx Vit B Complex 100 Combo No.2 100 mg PO DAILY 05/11/18 05/11/18 05/09/18 10:00 History Active Meds: Active Medications Piperacillin Sod/Tazobactam Sod (Zosyn/Ns 4.5gm/100ml) 4.5 gm in 100 mls @ 200 mls/hr IV ONCE SANDRINE Exam - Constitutional Vitals: Temp Pulse Resp BP Pulse Ox 98.8 F 115 H 18 152/91 96 05/10/18 10:33 05/10/18 15:07 05/10/18 15:07 05/10/18 15:07 05/10/18 15:07 General appearance: Present: no acute distress, well-nourished - EENT Eyes: Present: PERRL ENT: hearing intact, clear oral mucosa - Neck Neck: Present: supple, normal ROM - Respiratory Respiratory effort: normal Respiratory: bilateral: CTA - Cardiovascular Heart rate: 80 Rhythm: regular Heart Sounds: Present: S1 & S2. Absent: rub, click - Extremities Extremities: no ischemia, pulses intact, pulses symmetrical, No edema Peripheral Pulses: within normal limits - Abdominal General gastrointestinal: Present: soft, non-tender, non-distended, normal bowel sounds Localized gastrointestinal: tender: diffuse Male genitourinary: Present: normal - Rectal Rectal Exam: deferred - Integumentary Integumentary: Present: clear, warm, dry - Musculoskeletal Musculoskeletal: gait normal, strength equal bilaterally - Psychiatric Psychiatric: appropriate mood/affect, intact judgment & insight - Neurologic Neurologic: CNII-XII intact, moves all extremities - Allied Health Allied health notes reviewed: nursing, case management Results - Labs CBC & Chem 7: 05/10/18 10:54 05/10/18 10:54 Labs: Laboratory Last Values WBC 10.1 K/mm3 (4.5-11.0) 05/10/18 10:54 RBC 2.37 M/mm3 (3.65-5.03) L 05/10/18 10:54 Hgb 7.1 gm/dl (11.8-15.2) L 05/10/18 10:54 Hct 21.3 % (35.5-45.6) L 05/10/18 10:54 MCV 90 fl (84-94) 05/10/18 10:54 MCH 30 pg (28-32) 05/10/18 10:54 MCHC 34 % (32-34) 05/10/18 10:54 RDW 15.3 % (13.2-15.2) H 05/10/18 10:54 Plt Count 150 K/mm3 (140-440) 05/10/18 10:54 Lymph % (Auto) 7.6 % (13.4-35.0) L 05/10/18 10:54 [place] % (Auto) 5.1 % (0.0-7.3) 05/10/18 10:54 Eos % (Auto) 0.0 % (0.0-4.3) 05/10/18 10:54 Baso % (Auto) 0.2 % (0.0-1.8) 05/10/18 10:54 Lymph # 0.8 K/mm3 (1.2-5.4) L 05/10/18 10:54 [place] # 0.5 K/mm3 (0.0-0.8) 05/10/18 10:54 Eos # 0.0 K/mm3 (0.0-0.4) 05/10/18 10:54 Baso # 0.0 K/mm3 (0.0-0.1) 05/10/18 10:54 Seg Neutrophils % 87.1 % (40.0-70.0) H 05/10/18 10:54 Seg Neutrophils # 8.8 K/mm3 (1.8-7.7) H 05/10/18 10:54 Sodium 141 mmol/L (137-145) 05/10/18 10:54 Potassium 3.7 mmol/L (3.6-5.0) D 05/10/18 10:54 Chloride 94.0 mmol/L (98-107) L 05/10/18 10:54 Carbon Dioxide 27 mmol/L (22-30) 05/10/18 10:54 Anion Gap 24 mmol/L 05/10/18 10:54 BUN 27 mg/dL (9-20) H 05/10/18 10:54 Creatinine 5.9 mg/dL (0.8-1.5) H D 05/10/18 10:54 Estimated GFR 13 ml/min 05/10/18 10:54 BUN/Creatinine Ratio 5 % 05/10/18 10:54 Glucose 343 mg/dL (75-100) H 05/10/18 10:54 Lactic Acid 1.60 mmol/L (0.7-2.0) 05/10/18 14:53 Calcium 9.1 mg/dL (8.4-10.2) 05/10/18 10:54 Troponin T 0.538 ng/mL (0.00-0.029) H* 05/10/18 14:53 Amylase 69 units/L (27-131) 05/10/18 10:54 Lipase 24 units/L (13-60) 05/10/18 13:08 Blood Type A POSITIVE 05/10/18 10:54 Antibody Screen Negative 05/10/18 10:54 - Imaging and Cardiology EKG: report reviewed (Sinus Tach 118/min) Chest x-ray: report reviewed (NAF) Assessment and Plan Advance Directives: Yes (Full code) VTE prophylaxis?: Chemical Plan of care discussed with patient/family: Yes - Patient Problems (1) Gastroparesis Current Visit: Yes Status: Acute Plan to address problem: Severe Symptonatic treatment NM Emptying scan ordered (2) SIRS (systemic inflammatory response syndrome) Current Visit: Yes Status: Acute Plan to address problem: Has elevated Lactic Acid (3) ESRD (end stage renal disease) Current Visit: Yes Status: Chronic Plan to address problem: Cont HD (4) HTN (hypertension) Current Visit: Yes Status: Chronic Qualifiers: Hypertension type: essential hypertension Qualified Code(s): I10 - Essential (primary) hypertension Plan to address problem: Cont Antihypertensives (5) IDDM (insulin dependent diabetes mellitus) Current Visit: Yes Status: Chronic Plan to address problem: Cont Insulin coverage (6) Elevated troponin Current Visit: Yes Status: Chronic Plan to address problem: Sec To ESRD (7) DVT prophylaxis Current Visit: Yes Status: Chronic Plan to address problem: On Eliquis for PE
[2018-05-10] MEDS ORDERED: DILAUDID IV PRN (18:14)
[2018-05-10] MEDS ORDERED: HumaLOG SUB-Q ONE (18:17)
[2018-05-10] MEDS ORDERED: NACL 0.9% 1000 ML 1,000 ML IV SCH (19:00)
[2018-05-10] MEDS ORDERED: ATIVAN IV PRN (20:06)
[2018-05-10] MEDS: APRESOLINE IV PRN (20:59)
[2018-05-10] MEDS: MORPHINE IV PRN (21:00)
[2018-05-10] MEDS: CATAPRES PO SCH (21:55)
[2018-05-10] MEDS: ELIQUIS PO SCH (21:56)
[2018-05-10] MEDS: SODIUM CHLORIDE FLUSH SYRINGE 10 ML IV SCH (21:56)
[2018-05-10] MEDS ORDERED: ELIQUIS PO SCH (22:00)
[2018-05-10] MEDS ORDERED: NON-FORMULARY (Clonidine Hcl [Catapres] 0.3 MG) PO SCH (22:00)
[2018-05-10] MEDS ORDERED: HEPARIN SUB-Q SCH (22:00)
[2018-05-10] MEDS: HumaLOG SUB-Q SCH (22:55)
--- NOTE | 2018-05-11 08:53 | Consultation ---
History of Present Illness - Reason for Consult Consult date: 05/11/18 - History of Present Illness consult dictated Medications and Allergies Allergies Allergy/AdvReac Type Severity Reaction Status Date / Time shellfish derived Allergy Anaphylaxis Verified 05/09/18 17:45 iodine AdvReac Severe Vomiting Verified 05/09/18 17:45 IV dye AdvReac Severe Vomiting Uncoded 04/28/18 08:49 Home Medications Medication Instructions Recorded Confirmed Last Taken Type Insulin Glargine [Lantus VIAL] 30 units SQ QHS #1 mo 02/05/18 05/11/18 05/09/18 22:00 Rx Insulin Aspart [NovoLOG Flexpen] 4 units SQ AC PRN 03/03/18 05/11/18 05/06/18 08 :00 History Clonidine HCl [Catapres] 0.3 mg PO BID 04/14/18 05/11/18 05/09/18 22:00 History Apixaban [Eliquis] 5 mg PO Q12HR 05/05/18 05/11/18 05/10/18 10:00 History Potassium Chloride [K-Dur] 20 meq PO QDAY #7 tablet 05/09/18 05/11/18 05/09/18 22:00 Rx Vit B Complex 100 Combo No.2 100 mg PO DAILY 05/11/18 05/11/18 05/09/18 10:00 History Active Meds: Active Medications Acetaminophen (Tylenol) 650 mg PO Q4H PRN PRN Reason: Pain MILD(1-3)/Fever >100.5/SOARES Apixaban (Eliquis) 5 mg PO Q12HR [facility] Last Admin: 05/10/18 21:56 Dose: 5 mg Clonidine HCl (Catapres) 0.3 mg PO BID [facility] Last Admin: 05/10/18 21:55 Dose: 0.3 mg Hydralazine HCl (Apresoline) 10 mg IV Q3HR PRN PRN Reason: HIGH BLOOD PRESSURE. Last Admin: 05/10/18 20:59 Dose: 10 mg Hydromorphone HCl (Dilaudid) 1 mg IV Q3H PRN PRN Reason: Pain , Severe (7-10) Piperacillin Sod/Tazobactam Sod (Zosyn/Ns 4.5gm/100ml) 4.5 gm in 100 mls @ 200 mls/hr IV ONCE [facility] Insulin Human Lispro (Humalog) 0 unit SUB-Q ACHS SANDRINE; Protocol Last Admin: 05/10/18 22:55 Dose: 3 unit Lorazepam (Ativan) 0.5 mg IV Q4H PRN PRN Reason: Anxiety Morphine Sulfate (Morphine) 2 mg IV Q4H PRN PRN Reason: Pain, Moderate (4-6) Last Admin: 05/10/18 21:00 Dose: 2 mg Ondansetron HCl (Zofran) 4 mg IV Q8H PRN PRN Reason: Nausea And Vomiting Sodium Chloride (Sodium Chloride Flush Syringe 10 Ml) 10 ml IV BID SNADRINE Last Admin: 05/10/18 21:56 Dose: 10 ml Sodium Chloride (Sodium Chloride Flush Syringe 10 Ml) 10 ml IV PRN PRN PRN Reason: LINE FLUSH Exam - Constitutional Vitals: Temp Pulse Resp BP Pulse Ox 98.9 F 82 18 161/72 93 05/11/18 05:46 05/11/18 05:46 05/11/18 05:46 05/11/18 05:46 05/11/18 05:46 Results - Labs CBC & Chem 7: 05/10/18 10:54 05/10/18 10:54 Labs: Abnormal lab results 05/10/18 05/10/18 05/10/18 Range/Units 10:54 10:54 11:49 RBC 2.37 L (3.65-5.03) M/mm3 Hgb 7.1 L (11.8-15.2) gm/dl Hct 21.3 L (35.5-45.6) % RDW 15.3 H (13.2-15.2) % Lymph % (Auto) 7.6 L (13.4-35.0) % Lymph # 0.8 L (1.2-5.4) K/mm3 Seg Neutrophils % 87.1 H (40.0-70.0) % Seg Neutrophils # 8.8 H (1.8-7.7) K/mm3 Chloride 94.0 L (98-107) mmol/L BUN 27 H (9-20) mg/dL Creatinine 5.9 H D (0.8-1.5) mg/dL Glucose 343 H (75-100) mg/dL POC Glucose (70-105) Hemoglobin A1c (4-6) % Lactic Acid 4.30 H* (0.7-2.0) mmol/L Troponin T 0.568 H* (0.00-0.029) ng/mL Triglycerides 195 H (2-149) mg/dL 05/10/18 05/10/18 05/10/18 Range/Units 13:08 13:08 14:53 RBC (3.65-5.03) M/mm3 Hgb (11.8-15.2) gm/dl Hct (35.5-45.6) % RDW (13.2-15.2) % Lymph % (Auto) (13.4-35.0) % Lymph # (1.2-5.4) K/mm3 Seg Neutrophils % (40.0-70.0) % Seg Neutrophils # (1.8-7.7) K/mm3 Chloride (98-107) mmol/L BUN (9-20) mg/dL Creatinine (0.8-1.5) mg/dL Glucose (75-100) mg/dL POC Glucose (70-105) Hemoglobin A1c (4-6) % Lactic Acid 3.00 H* (0.7-2.0) mmol/L Troponin T 0.595 H* 0.538 H* (0.00-0.029) ng/mL Triglycerides (2-149) mg/dL 05/10/18 05/10/18 Range/Units 18:18 22:04 RBC (3.65-5.03) M/mm3 Hgb (11.8-15.2) gm/dl Hct (35.5-45.6) % RDW (13.2-15.2) % Lymph % (Auto) (13.4-35.0) % Lymph # (1.2-5.4) K/mm3 Seg Neutrophils % (40.0-70.0) % Seg Neutrophils # (1.8-7.7) K/mm3 Chloride (98-107) mmol/L BUN (9-20) mg/dL Creatinine (0.8-1.5) mg/dL Glucose (75-100) mg/dL POC Glucose 236 H (70-105) Hemoglobin A1c 8.3 H (4-6) % Lactic Acid (0.7-2.0) mmol/L Troponin T (0.00-0.029) ng/mL Triglycerides (2-149) mg/dL
[2018-05-11] MEDS ORDERED: NACL 0.9% 100 ML IV PRN (10:00)
--- NOTE | 2018-05-11 10:13 | Progress Note ---
Assessment and Plan Assessment and plan: Gastroparesis. Patient on Zofran. Will add Reglan nausea and vomiting due to gastroparesis ESRD on dialysis. Cont dialysis as per Nephrology Hypertension. Monitor BP Diabetes mellitus type 2. Check fingerstick glucose q ac and hs DVT prophylaxis on Eliquis History Interval history: Nausea and vomiting Hospitalist Physical - Physical exam Narrative exam: Gen : Not in acute distress, obese HEENT:Normocephalic, atraumatic Neck: supple, No JVD Lungs: Clear to auscultation, bilaterally, no rhonchi Heart :S1 and S2 reg, no murmurs, rubs or gallop Abd:soft, non tender, non distended, normal bowel sounds Ext: No edema, no clubbing, no cyanosis, Neuro: Awake,alert,oriented x 3, no focal signs - Constitutional Vitals: Temp Pulse Resp BP Pulse Ox 98.9 F 82 18 161/72 93 05/11/18 05:46 05/11/18 05:46 05/11/18 05:46 05/11/18 05:46 05/11/18 05:46 General appearance: Present: no acute distress, well-nourished Results - Labs CBC & Chem 7: 05/12/18 16:01 05/12/18 05:22 Labs: Laboratory Last Values WBC 10.1 K/mm3 (4.5-11.0) 05/10/18 10:54 RBC 2.37 M/mm3 (3.65-5.03) L 05/10/18 10:54 Hgb 7.1 gm/dl (11.8-15.2) L 05/10/18 10:54 Hct 21.3 % (35.5-45.6) L 05/10/18 10:54 MCV 90 fl (84-94) 05/10/18 10:54 MCH 30 pg (28-32) 05/10/18 10:54 MCHC 34 % (32-34) 05/10/18 10:54 RDW 15.3 % (13.2-15.2) H 05/10/18 10:54 Plt Count 150 K/mm3 (140-440) 05/10/18 10:54 Lymph % (Auto) 7.6 % (13.4-35.0) L 05/10/18 10:54 [place] % (Auto) 5.1 % (0.0-7.3) 05/10/18 10:54 Eos % (Auto) 0.0 % (0.0-4.3) 05/10/18 10:54 Baso % (Auto) 0.2 % (0.0-1.8) 05/10/18 10:54 Lymph # 0.8 K/mm3 (1.2-5.4) L 05/10/18 10:54 [place] # 0.5 K/mm3 (0.0-0.8) 05/10/18 10:54 Eos # 0.0 K/mm3 (0.0-0.4) 05/10/18 10:54 Baso # 0.0 K/mm3 (0.0-0.1) 05/10/18 10:54 Seg Neutrophils % 87.1 % (40.0-70.0) H 05/10/18 10:54 Seg Neutrophils # 8.8 K/mm3 (1.8-7.7) H 05/10/18 10:54 Sodium 141 mmol/L (137-145) 05/10/18 10:54 Potassium 3.7 mmol/L (3.6-5.0) D 05/10/18 10:54 Chloride 94.0 mmol/L (98-107) L 05/10/18 10:54 Carbon Dioxide 27 mmol/L (22-30) 05/10/18 10:54 Anion Gap 24 mmol/L 05/10/18 10:54 BUN 27 mg/dL (9-20) H 05/10/18 10:54 Creatinine 5.9 mg/dL (0.8-1.5) H D 05/10/18 10:54 Estimated GFR 13 ml/min 05/10/18 10:54 BUN/Creatinine Ratio 5 % 05/10/18 10:54 Glucose 343 mg/dL (75-100) H 05/10/18 10:54 POC Glucose 236 (70-105) H 05/10/18 22:04 Hemoglobin A1c 8.3 % (4-6) H 05/10/18 18:18 Lactic Acid 1.60 mmol/L (0.7-2.0) 05/10/18 14:53 Calcium 9.1 mg/dL (8.4-10.2) 05/10/18 10:54 Troponin T 0.538 ng/mL (0.00-0.029) H* 05/10/18 14:53 Triglycerides 195 mg/dL (2-149) H 05/10/18 10:54 Cholesterol 170 mg/dL (50-199) 05/10/18 10:54 LDL Cholesterol Direct 103 mg/dL (50-130) 05/10/18 10:54 Amylase 69 units/L (27-131) 05/10/18 10:54 Lipase 24 units/L (13-60) 05/10/18 13:08 Blood Type A POSITIVE 05/10/18 10:54 Antibody Screen Negative 05/10/18 10:54
[2018-05-11] MEDS: ELIQUIS PO SCH ×2 (10:17→22:24)
[2018-05-11] MEDS: CATAPRES PO SCH ×2 (10:17→22:24)
[2018-05-11] MEDS: SODIUM CHLORIDE FLUSH SYRINGE 10 ML IV SCH ×2 (10:18→22:23)
[2018-05-11] MEDS: HumaLOG SUB-Q SCH ×4 (11:04→23:24)
[2018-05-11] MEDS: REGLAN IV SCH ×3 (11:30→22:24)
[2018-05-11 14:05] LABS: Chol/HDL Ratio 4.14 %
--- NOTE | 2018-05-11 14:51 | Nuclear Medicine Report ---
NUCLEAR MEDICINE GASTRIC EMPTYING SCAN HISTORY: Gastroparesis. FINDINGS: Anterior abdominal images were obtained for 90 minutes after ingestion of 1 mCi of technetium 99m sulfur cold in oatmeal. Half life for gastric emptying measures 105 minutes (normal range 45-110 minutes). No scintigraphic evidence for reflux disease. IMPRESSION: Normal gastric emptying.
--- NOTE | 2018-05-11 21:26 | Consultation ---
RENAL CONSULTATION REASON FOR CONSULTATION: Renal failure. HISTORY OF PRESENT ILLNESS: This 37-year-old Afro-[place] male with end-stage renal disease, diabetes, hypertension, recurrent diabetic gastroparesis, was brought to the Emergency Room for having nausea, vomiting, chills, and abdomen pain with a burning sensation in the chest. The patient was discussed with the ER physician yesterday. The patient was seen earlier yesterday morning, but he was unable to leave the ER parking due to worsening symptoms. His labs revealed a hemoglobin of 7.1, BUN of 27, creatinine of 5.9. The patient has recurrent admissions for diabetic gastroparesis. Recently, he was diagnosed with a pulmonary embolism, currently taking Eliquis. About 2 weeks ago, the patient was started on home hemodialysis. He did dialysis past Tuesday and Tuesday. A week ago, past Tuesday, the patient had right upper arm AV graft thrombectomy by Dr. Cortés. PAST MEDICAL HISTORY: Diabetes with end-organ damage, hypertension, recurrent diabetic gastroparesis, recent diagnosis of pulmonary embolism. PAST SURGICAL HISTORY: Had left eye surgery status post right toe amputation. ALLERGIES: SHELLFISH, IODINE. HOME MEDICATIONS: Insulin, clonidine 0.3 mg b.i.d., Eliquis 10 mg twice a day, potassium chloride 20 mEq once a day. REVIEW OF SYSTEMS: Complains of generalized weakness. Denies shortness of breath. Complains of pain in the upper abdomen. The patient states that yesterday he was having chills, nausea, vomiting, sweating and shortness of breath, better today. Denies fever. Denies seeing blood per rectum. Denies dysuria or hematuria. Other review of systems is reviewed and negative. PHYSICAL EXAMINATION: GENERAL: The patient is alert, oriented, not in acute distress. VITAL SIGNS: Blood pressure 150/94, pulse 102, afebrile. EYES: Pupils reactive. Conjunctivae pale. Oral mucosa, tongue, and lips are dry. NECK: No JVD, no thyroid enlargement. LUNGS: Diminished breath sounds in bases. HEART: S1, S2 regular. A 2/6 systolic murmur along the left sternal border. ABDOMEN: Soft, bowel sounds present. The patient has mild tenderness in upper abdomen and epigastric area. No masses palpable. EXTREMITIES: Right upper arm AV access, has bruit and thrill. No significant peripheral edema. LABORATORY DATA: Sodium 141, potassium 3.7, chloride 94, CO2 27, BUN 27, creatinine 5.9, glucose 343. Hemoglobin A1c 8.3. Troponin 0.538. Amylase and lipase normal. WBC 10.1, hemoglobin 7.1, hematocrit 21.3, platelets 150. ASSESSMENT: 1. Recurrent diabetic gastroparesis. 2. End-stage renal disease. 3. Severe symptomatic anemia. 4. Recent history of pulmonary embolism. 5. Mild hypokalemia. 6. Hypertension. 7. Uncontrolled diabetes with hyperglycemia. PLAN: Hemodialysis as ordered such as tomorrow. Consider nutrition support. Suggest GI evaluation for recurrent diabetic gastroparesis. Optimize blood pressure medications. JOB# [id number] NANCY/ROCK
[2018-05-11] MEDS: MORPHINE IV PRN (22:22)
[2018-05-12 06:37] LABS: Hemoglobin 6.1 gm/dl (11.8-15.2); Mean Corpuscular HGB Conc 33 % (32-34); Mean Corpuscular Hemoglobin 30 pg (28-32); Mean Corpuscular Volume 92 fl (84-94); Platelet Count 187 K/mm3 (140-440); Red Blood Count 2.05 M/mm3 (3.65-5.03); Red Cell Distribution Width 15.2 % (13.2-15.2)
[2018-05-12 06:41] LABS: Calcium 8.1 mg/dL (8.4-10.2)
[2018-05-12 07:10] LABS: Hematocrit 18.7 % (35.5-45.6)
[2018-05-12] MEDS: HumaLOG SUB-Q SCH ×3 (07:30→17:26)
[2018-05-12] MEDS ORDERED: NACL 0.9% 500 ML 500 ML IV NR (09:00)
[2018-05-12] MEDS ORDERED: PROTONIX IV SCH (10:00)
[2018-05-12] MEDS: SODIUM CHLORIDE FLUSH SYRINGE 10 ML IV SCH (10:00)
[2018-05-12] MEDS: CATAPRES PO SCH ×2 (10:00→16:05)
[2018-05-12] MEDS: ELIQUIS PO SCH (10:00)
[2018-05-12] MEDS ORDERED: NACL 0.9 (PRIMING MACHINE ONLY DIALYSIS) MC ONE (11:50)
[2018-05-12] MEDS: REGLAN IV SCH ×3 (12:45→17:25)
[2018-05-12] MEDS ORDERED: PROTONIX PO SCH (13:00)
--- NOTE | 2018-05-12 14:33 | Progress Note ---
Assessment and Plan impression * End-stage renal disease * Diabetic gastroparesis * Severe anemia * Hypertension Recommendations * Continue hemodialysis on MWF scheduled for now . * He does home hemodialysis * packed RBC being transfused * Continue Procrit with dialysis * No IV, BP or any puncture in his access arm * Hold phosphate binders for now due to his GI symptoms Subjective Date of service: 05/12/18 Interval history: patient is currently undergoing dialysis. Receiving packed RBC transfusion. Nausea and vomiting has resolved Objective - Vital Signs Vital signs: Vital Signs - 12hr 05/12/18 05/12/18 05/12/18 06:52 10:45 11:00 Temperature 98.4 F 98.2 F Pulse Rate 81 79 79 Respiratory 18 18 Rate Blood Pressure 116/78 146/85 152/86 O2 Sat by Pulse 91 Oximetry 05/12/18 05/12/18 05/12/18 11:15 11:30 13:15 Temperature 98.2 F Pulse Rate 78 81 85 Respiratory 18 Rate Blood Pressure 136/77 139/84 169/96 O2 Sat by Pulse Oximetry 05/12/18 05/12/18 05/12/18 13:29 13:45 14:00 Temperature 98.4 F 98.0 F 98.0 F Pulse Rate 82 82 84 Respiratory 18 18 18 Rate Blood Pressure 177/98 173/72 172/82 O2 Sat by Pulse Oximetry 05/12/18 14:15 Temperature 98.0 F Pulse Rate 82 Respiratory 18 Rate Blood Pressure 173/72 O2 Sat by Pulse Oximetry - General Appearance General appearance: well-developed, well-nourished, appears stated age EENT: PERRL, mucous membranes moist Neck: no JVD, no thyromegaly, no carotid bruit, supple Respiratory: Present: Clear to Ascultation Cardiology: regular, normal heart rate Gastrointestinal: normal, normoactive bowel sounds Integumentary: no rash, other (AV graft right upper arm. Cannulated for dialysis) - Lab 05/12/18 16:01 05/12/18 05:22 Most recent lab results Calcium 8.1 mg/dL (8.4-10.2) L 05/12/18 05:22
[2018-05-12] MEDS: APRESOLINE IV PRN (16:05)
[2018-05-12 16:40] LABS: Hematocrit 30.4 % (35.5-45.6); Hemoglobin 10.1 gm/dl (11.8-15.2)
--- NOTE | 2018-05-12 17:05 | Discharge Summary ---
Providers - Providers Date of Admission: 05/10/18 18:12 Date of discharge: 05/12/18 Attending physician: SOPHIA STATON 05/10/18 18:14 Consult to Physician [CONS] Routine Comment: Consulting Provider: DINH OTERO Physician Instructions: Reason For Exam: ESRD Primary care physician: [employer] Hospitalization Condition: Fair Disposition: DC-01 TO HOME OR SELFCARE Exam - Constitutional Vitals: Temp Pulse Resp BP Pulse Ox 98.0 F 82 18 173/72 91 05/12/18 14:15 05/12/18 14:15 05/12/18 14:15 05/12/18 14:15 05/12/18 06:52 Plan Activity: no restrictions Diet: low fat, low cholesterol, low salt, diabetic, renal Additional Instructions: 1.Follow up with PCP or [facility] in 1 week. 2.Continue routine hemodialysis as scheduled Follow up with: PRIMARY CARE, [Primary Care Provider] - 7 Days Prescriptions: Famotidine [Pepcid] 20 mg PO DAILY #30 tablet
[2018-05-12 17:15] VITALS: BP 143/90
== END 2018-05-12 18:34 | disposition home or self-care (01) | DRG 73 ==
LOC: ED 10:18 → 3A 18:12
PROVIDERS: ADMIT Internal Medicine; ATTEND Internal Medicine
PROC: 30233N1 Transfusion of Nonautologous Red Blood Cells into Peripheral Vein, Percutaneous Approach (ICD-10-PCS; principal; 2018-05-12)
PROC: 5A1D70Z Performance of Urinary Filtration, Intermittent, Less than 6 Hours Per Day (ICD-10-PCS; 2018-05-12)
DX: E11.43 Type 2 diabetes mellitus with diabetic autonomic (poly)neuropathy (principal); N18.6 End stage renal disease; R65.10 Systemic inflammatory response syndrome (SIRS) of non-infectious origin without acute organ dysfunction; I12.0 Hypertensive chronic kidney disease with stage 5 chronic kidney disease or end stage renal disease; K31.84 Gastroparesis; E87.6 Hypokalemia; E11.65 Type 2 diabetes mellitus with hyperglycemia; D64.9 Anemia, unspecified; E11.22 Type 2 diabetes mellitus with diabetic chronic kidney disease; Z79.4 Long term (current) use of insulin; I25.2 Old myocardial infarction; Z86.711 Personal history of pulmonary embolism; Z79.01 Long term (current) use of anticoagulants; Z86.73 Personal history of transient ischemic attack (TIA), and cerebral infarction without residual deficits; Z89.421 Acquired absence of other right toe(s); Z91.041 Radiographic dye allergy status; Z91.013 Allergy to seafood
CPT/HCPCS: 36415; 71045; 78264; 80048; 80061; 82140; 82150; 82962; 83036; 83690; 84484; 85014; 85018; 85025; 85027; 86850; 86900; 86901; 86920; 87040; 87116; 93005; 93010; 96361; 96374; 96375; A9541; C9113; J0360; J1170; J1815; J2060; J2270; J2405; J2765; J7030; P9016

== ENCOUNTER 2018-06-09 06:14 | Day surgery (SDC) | payer MEDICARE, OTHER ==
[~2018-06-09 06:14] MED LIST changes: +ANCEF/STERILE WATER 2 GM/20 ML 2 GM/20 ML SYRINGE IV NR; +NACL 0.9% 1000 ML 1,000 ML IV SCH; +NACL BACTERIOSTATIC INFILTRATI ONE; -SODIUM CHLORIDE FLUSH SYRINGE 10 ML IV SCH
[2018-06-09 07:08] LABS: Basophils # (Auto) 0.1 K/mm3 (0.0-0.1); Basophils % (Auto) 0.7 % (0.0-1.8); Eosinophils # (Auto) 0.2 K/mm3 (0.0-0.4); Eosinophils % (Auto) 2.1 % (0.0-4.3); Hematocrit 25.8 % (35.5-45.6); Hemoglobin 8.8 gm/dl (11.8-15.2); Lymphocytes # (Auto) 1.9 K/mm3 (1.2-5.4); Lymphocytes % (Auto) 20.6 % (13.4-35.0); Mean Corpuscular HGB Conc 34 % (32-34); Mean Corpuscular Hemoglobin 31 pg (28-32); Mean Corpuscular Volume 91 fl (84-94); Monocytes # (Auto) 0.7 K/mm3 (0.0-0.8); Platelet Count 165 K/mm3 (140-440); Red Blood Count 2.85 M/mm3 (3.65-5.03); Red Cell Distribution Width 16.4 % (13.2-15.2)
[2018-06-09] MEDS ORDERED: HEPARIN 10,000 UNITS/10 ML ONE (07:08)
[2018-06-09] MEDS ORDERED: NACL 0.9% 500 ML 500 ML ONE (07:08)
[2018-06-09] MEDS ORDERED: RIFADIN ONE (07:08)
[2018-06-09] MEDS ORDERED: MARCAINE 0.5% 30 ML INFILTRATI ONE (07:08)
[2018-06-09 07:19] LABS: Calcium 9.3 mg/dL (8.4-10.2)
[2018-06-09] MEDS ORDERED: ZOFRAN IV PRN (07:47)
[2018-06-09] MEDS ORDERED: DECADRON IV ONE (07:49)
[2018-06-09] MEDS ORDERED: PEPCID IV NR (07:51)
[2018-06-09] MEDS ORDERED: XYLOCAINE MPF 2% ONE (07:53)
[2018-06-09] MEDS ORDERED: DECADRON ONE (07:53)
--- NOTE | 2018-06-09 07:53 | Anesthesia Consultation ---
Anesthesia Consult and Med Hx Date of service: 06/09/18 - Airway Anesthetic Teeth Evaluation: Good ROM Head & Neck: Adequate Mental/Hyoid Distance: Adequate Mallampati Class: Class II Intubation Access Assessment: Probably Good - Pulmonary Exam CTA: Yes - Cardiac Exam Cardiac Exam: RRR - Pre-Operative Health Status ASA Pre-Surgery Classification: ASA3 Proposed Anesthetic Plan: General - Pre-Anesthesia Comment Pre-Anesthesia Comments: PONV - Cardiovascular System Hx Hypertension: Yes (Coreg ) Hx Coronary Artery Disease: Yes Hx Heart Attack/AMI: Yes (NSTEMI) Hx Angina: Yes Hx Peripheral Vascular Disease: Yes - Central Nervous System CVA: Yes (2016-no residual ) Hx Psychiatric Problems: No - Gastrointestinal Hx Gastroesophageal Reflux Disease: No (gastroparesis) - Endocrine Hx Renal Disease: Yes Hx End Stage Renal Disease: Yes (MWF, last dialysed Tue.) Hx Insulin Dependent Diabetes: Yes - Hematic Hx Anemia: Yes - Other Systems Hx Cancer: No
[2018-06-09] MEDS ORDERED: DIPRIVAN 10 MG/ML IV ONE (07:54)
[2018-06-09] MEDS ORDERED: SUBLIMAZE ONE (07:54)
--- NOTE | 2018-06-09 07:54 | Anesthesia Day of Surgery ---
Anesthesia Day of Surgery - Day of Surgery Patient Examined: Yes Patient H&P Reviewed: Yes Patient is NPO: Yes
[2018-06-09] MEDS ORDERED: ePHEDrine SULFATE ONE (07:56)
[2018-06-09] MEDS ORDERED: NACL 0.9% 1000 ML 1,000 ML IV SCH ×2 (08:00)
[2018-06-09] MEDS ORDERED: TRANSDERM-SCOP TD NR (08:00)
[2018-06-09] MEDS ORDERED: VERSED IV NR (08:00)
[2018-06-09] MEDS ORDERED: D50W (25GM) Syringe IV ONE (08:05)
[2018-06-09] MEDS ORDERED: D50W (25GM) Syringe IV NR (08:11)
[2018-06-09] MEDS ORDERED: RIFADIN IV ONE (08:17)
[2018-06-09] MEDS ORDERED: HEPARIN 10,000 UNITS/10 ML IR ONE (08:17)
[2018-06-09] MEDS ORDERED: NACL 0.9% 500 ML IRRIGATION ONE (08:17)
[2018-06-09] MEDS ORDERED: NACL 0.9% IR ONE (08:17)
[2018-06-09] MEDS ORDERED: MARCAINE 0.5% INFILTRATI ONE (08:17)
--- NOTE | 2018-06-09 10:43 | Short Stay Summary ---
Short Stay Documentation Date of service: 06/09/18 Narrative H&P: See short stay form - Allergies and Medications Current Medications: Allergies shellfish derived Allergy (Verified 06/08/18 15:09) Anaphylaxis iodine Adverse Reaction (Severe, Verified 06/08/18 15:09) Vomiting IV dye Adverse Reaction (Severe, Uncoded 04/28/18 08:49) Vomiting Home Medications Medication Instructions Recorded Confirmed Last Taken Type Insulin Glargine [Lantus VIAL] 30 units SQ QHS #1 mo 02/05/18 06/09/18 06/08/18 21:30 Rx Insulin Aspart [NovoLOG Flexpen] 4 units SQ AC PRN 03/03/18 06/09/18 06/08/18 18 :30 History Clonidine HCl [Catapres] 0.3 mg PO BID 04/14/18 06/09/18 06/09/18 05:00 History Apixaban [Eliquis] 5 mg PO Q12HR 05/05/18 06/09/18 06/06/18 09:00 History Potassium Chloride [K-Dur] 20 meq PO QDAY #7 tablet 05/09/18 06/09/18 06/08/18 09:00 Rx Vit B Complex 100 Combo No.2 100 mg PO DAILY 05/11/18 06/09/18 06/08/18 09:00 History Active Medications Famotidine (Pepcid) 20 mg IV ONCE NR Stop: 06/09/18 18:00 Last Admin: 06/09/18 08:14 Dose: 20 mg Hydromorphone HCl (Dilaudid) 0.5 mg IV Q10MIN PRN PRN Reason: Pain , Severe (7-10) Stop: 06/09/18 18:00 Cefazolin Sodium (Ancef/Sterile Water 2 Gm/20 Ml) 2 gm in 20 mls @ 80 mls/hr IV PREOP NR; Protocol Stop: 06/09/18 23:01 Sodium Chloride (Nacl 0.9% 1000 Ml) 1,000 mls @ 42 mls/hr IV DIRECT SANDRINE Last Admin: 06/09/18 07:00 Dose: 42 mls/hr Sodium Chloride (Nacl 0.9% 1000 Ml) 1,000 mls @ 42 mls/hr IV DIRECT SANDRINE Sodium Chloride (Nacl 0.9% 1000 Ml) 1,000 mls @ 42 mls/hr IV DIRECT SANDRINE Midazolam HCl (Versed) 2 mg IV PREOP NR Stop: 06/09/18 23:59 Last Admin: 06/09/18 08:21 Dose: 2 mg Ondansetron HCl (Zofran) 4 mg IV ONCE PRN PRN Reason: Nausea And Vomiting Stop: 06/09/18 18:00 Scopolamine (Transderm-Scop) 1 each TD PREOP NR Stop: 06/09/18 23:59 - Brief post op/procedure progress note Date of procedure: 06/09/18 Pre-op diagnosis: Complications Dialysis Access Post-op diagnosis: same Procedure: Revision of Right Arm Arteriovenous Graft with Proximalization of Inflow With 7 mm Bovine Graft To Right Axillary Artery Anesthesia: GETA Surgeon: MARIFER BRANDON Estimated blood loss: minimal Pathology: none Condition: stable - Disposition Condition at discharge: Good Disposition: DC-01 TO HOME OR SELFCARE Short Stay Discharge Plan Activity: no restrictions Wound: open to air, keep clean and dry, other (okay to shower and wash the wound with soap and water but do not soak the wound in water) Follow up with: MARIFER BRANDON MD [Staff Physician] - 14 Days Prescriptions: HYDROcodone/APAP 7.5-325 [Floyd 7.5/325] 1 each PO Q6HR PRN #40 tablet PRN Reason: Pain
--- NOTE | 2018-06-09 10:55 | Operative Report ---
Operative Report Operative Report: Date of Procedure: 06/09/2018 Pre-operative Diagnosis: Complications of Dialysis Access Post-operative Diagnosis: Same Procedure(s): 1. Revision of Right Arm Arteriovenous Graft with Proximalization of Inflow With 7 mm Bovine Graft To Right Axillary Artery Surgeon: Mika Escalante M.D. Tow Bar Driver: None Anesthesia: Gen. Endotracheal Anesthesia EBL: Minimal Counts: Correct Complications: None Condition: Stable Findings: Some laminar thrombus in the 4 mm portion of the arterial inflow of the graft resulting in diminished thrill in the graft prior to revision. This was noted during the open portion of the procedure. After removing this laminar thrombus the venous bleeding was significantly more robust. At the completion of the case the patient had a robust thrill in the graft and a palpable radial pulse. Specimen: None Indication: The patient is a 37-year-old male with a history of end-stage renal disease who has had multiple AV accesses in his right approximate. His most recent AV access is required multiple thrombectomies despite having no angiographic evidence of anatomic abnormalities. He is in need of revision with proximalization of the inflow to improve the flow and hopefully prevent further thrombosis. He was given the risk, benefits, and alternative procedures and consented to the procedure. Description of Procedure: The patient was brought to the operating room and laid in supine position. After general endotracheal anesthesia was achieved his right arm was prepped and draped in normal sterile fashion. A longitudinal incision was created just below his axillary crease and carried down to his axillary artery using sharp dissection. It was controlled distally and proximally using Vesseloops. I then made a longitudinal incision just proximal to his antecubital crease, through her previous incision, dissected down to his arterial anastomosis of his graft and controlled the graft with a vessel loop. I then use a Joy-Wick tunneler to tunnel the 7 mm bovine graft from the axillary incision to the antecubital incision and then pulled the graft to the incision. At this point I systemically heparinized the patient. I then beveled the graft and clamped the axillary artery both proximally and distally with angled DeBakey clamps. I created an arteriotomy in the axillary artery using an 11 blade and Pruitt scissors. At the end created an end-to-side anastomosis using a 6-0 Prolene in running fashion. I completed the anastomosis and removed the clamps and placed a clamp on the bovine graft just distal to the anastomosis. Hemostasis at the anastomosis was achieved with quick clot. Dissected along the patient's AV graft up to the 7 mm portion of the graft and placed an anal DeBakey clamp. I then went the graft just above the arterial anastomosis and transected the graft. I oversewed the graft, using a 5-0 Prolene in a running 2 layer fashion , to close the arteriotomy. I then released the clamp on the graft and there was minimal venous backbleeding. Upon examining the graft there was some laminar thrombus within the graft however once I removed his thrombus there was excellent backbleeding. I transected the graft in a bevel fashion at the 7 mm portion of the graft. I then cut the bovine graft to length and beveled the end of the graft and then created an end-to-end anastomosis between the bovine graft and the PTFE graft using 2 6-0 Prolene running fashion. Prior to completing the anastomosis I flushed both the PTFE graft and the bovine graft. I completed the anastomosis and then removed all clamps allow flow into the graft which had an excellent thrill, and the patient had a palpable radial pulse. Hemostasis within this pole was then achieved a quick clot. Once hemostasis was achieved anesthetized both wounds using 0.5% Marcaine. I then closed both wounds in 2 layers using 3-0 Vicryl in running fashion in the deep dermal layers and 4-0 Monocryl in a running fashion the subcuticular layers and then dressed both wounds with Dermabond. The patient tolerated the procedure well. All sponge, needle, and instrument counts were correct. The patient was taken to the recovery area in stable condition.
[2018-06-09] MEDS: DILAUDID IV PRN ×2 (11:10→11:20)
[2018-06-09 12:18] VITALS: BP 140/87
== END 2018-06-09 12:24 | disposition home or self-care (01) ==
LOC: OR 06:14
PROVIDERS: ATTEND Surgery Vascular Surgery
DX: T82.868A Thrombosis due to vascular prosthetic devices, implants and grafts, initial encounter (principal); E11.22 Type 2 diabetes mellitus with diabetic chronic kidney disease; I12.0 Hypertensive chronic kidney disease with stage 5 chronic kidney disease or end stage renal disease; N18.6 End stage renal disease; E11.51 Type 2 diabetes mellitus with diabetic peripheral angiopathy without gangrene; I25.118 Atherosclerotic heart disease of native coronary artery with other forms of angina pectoris; K21.9 Gastro-esophageal reflux disease without esophagitis; E78.00 Pure hypercholesterolemia, unspecified; I25.2 Old myocardial infarction; Z79.4 Long term (current) use of insulin; Z79.899 Other long term (current) drug therapy; Z91.013 Allergy to seafood; Z91.041 Radiographic dye allergy status; Z86.73 Personal history of transient ischemic attack (TIA), and cerebral infarction without residual deficits; Z98.890 Other specified postprocedural states; Y83.2 Surgical operation with anastomosis, bypass or graft as the cause of abnormal reaction of the patient, or of later complication, without mention of misadventure at the time of the procedure
CPT/HCPCS: 36415; 36833; 80048; 82962; 85025; C1768; J0690; J1100; J1170; J1644; J2250; J2405; J2704; J3010; J3490; J7030; J7040

== ENCOUNTER 2018-07-09 15:03 | Emergency (ER) | payer MEDICARE ==
[2018-07-09 15:48] LABS: Basophils # (Auto) 0.1 K/mm3 (0.0-0.1); Basophils % (Auto) 0.7 % (0.0-1.8); Eosinophils # (Auto) 0.4 K/mm3 (0.0-0.4); Eosinophils % (Auto) 4.5 % (0.0-4.3); Hematocrit 32.6 % (35.5-45.6); Hemoglobin 10.3 gm/dl (11.8-15.2); Lymphocytes # (Auto) 1.6 K/mm3 (1.2-5.4); Lymphocytes % (Auto) 19.8 % (13.4-35.0); Mean Corpuscular HGB Conc 32 % (32-34); Mean Corpuscular Hemoglobin 29 pg (28-32); Mean Corpuscular Volume 91 fl (84-94); Monocytes # (Auto) 0.6 K/mm3 (0.0-0.8); Monocytes % (Auto) 7.3 % (0.0-7.3); Platelet Count 159 K/mm3 (140-440); Red Cell Distribution Width 17.4 % (13.2-15.2)
[2018-07-09 15:55] LABS: INR 1.03 (0.87-1.13)
[2018-07-09 15:56] LABS: Partial Thromboplastin Time 27.2 Sec. (24.2-36.6)
[2018-07-09 15:57] LABS: Calcium 8.6 mg/dL (8.4-10.2)
[2018-07-09 16:01] LABS: Alanine Aminotransferase 12 units/L (7-56)
[2018-07-09 16:11] LABS: Bilirubin,Direct < 0.2 mg/dL (0-0.2)
[2018-07-09] MEDS ORDERED: HumuLIN R IV ONE (16:41)
[2018-07-09] MEDS ORDERED: TYLENOL #3 PO ONE (16:41)
--- NOTE | 2018-07-09 17:10 | Emergency Department Report ---
HPI - General Chief Complaint: High BP Time Seen by Provider: 07/09/18 16:22 - HPI HPI: The patient is a 37-year-old male who presents for evaluation of right arm swelling surrounding AV fistula. The patient states that his experience swelling to the right upper arm surrounding his AV fistula for the past 2-3 hours prior to his arrival. He states that the swelling has been associated with mild pain, tightness like in quality, exacerbated with movement of the arm , constant since onset but improving for the past hour. The patient denies fever, trauma to the arm, redness, wound, paresthesia or motor deficit in the arm. ED Past Medical Hx - Past Medical History Previous Medical History?: Yes Hx Hypertension: Yes (Coreg ) Hx CVA: Yes (TIA's) Hx Heart Attack/AMI: Yes (NSTEMI) Hx Diabetes: Yes Hx Renal Disease: Yes Hx Headaches / Migraines: Yes (Migraines) Hx Psychiatric Treatment: No Additional medical history: gastroparesis, PE - Surgical History Past Surgical History?: Yes Additional Surgical History: left eye surgery, right toe amputation, right chest vas cath. GRAFT RIGHT UPPER ARM. Graft revision 06/2018 per pt - Social History Smoking Status: Never Smoker Substance Use Type: None - Medications Home Medications: Home Medications Medication Instructions Recorded Confirmed Last Taken Type Insulin Glargine [Lantus VIAL] 30 units SQ QHS #1 mo 02/05/18 06/09/18 06/08/18 21:30 Rx Insulin Aspart [NovoLOG Flexpen] 4 units SQ AC PRN 03/03/18 06/09/18 06/08/18 18 :30 History Clonidine HCl [Catapres] 0.3 mg PO BID 04/14/18 06/09/18 06/09/18 05:00 History Apixaban [Eliquis] 5 mg PO Q12HR 05/05/18 06/09/18 06/06/18 09:00 History Potassium Chloride [K-Dur] 20 meq PO QDAY #7 tablet 05/09/18 06/09/18 06/08/18 09:00 Rx Vit B Complex 100 Combo No.2 100 mg PO DAILY 05/11/18 06/09/18 06/08/18 09:00 History HYDROcodone/APAP 7.5-325 [[place] 1 each PO Q6HR PRN #40 tablet 06/09/18 Unknown Rx 7.5/325] Acetaminophen/Codeine [Tylenol #3] 1 tab PO Q6H PRN #14 tab 07/09/18 Unknown Rx Clindamycin [Clindamycin CAP] 300 mg PO TID 10 Days #30 cap 07/09/18 Unknown Rx ED Review of Systems ROS: Stated complaint: GRAFT SWOLLENING Other details as noted in HPI Constitutional: denies: fever ENT: denies: throat or neck pain Respiratory: denies: cough, shortness of breath Cardiovascular: denies: chest pain Endocrine: denies unexplained weight loss or gain Gastrointestinal: denies: abdominal pain, nausea Genitourinary: denies: dysuria Musculoskeletal: reports right arm swelling denies: leg swelling Skin: denies: rash Neurological: denies: headache Hematological/Lymphatic: denies: easy bleeding or easy bruising Psych: denies sadness or hopelessness Physical Exam - Physical Exam Vital Signs: Vital Signs 07/09/18 15:52 Respiratory 16 Rate O2 Sat by Pulse 98 Oximetry Physical Exam: General: well-nourished, well-developed, no acute distress Head: Normocephalic, atraumatic Eyes: normal sclera ENT: Mucous membranes are pink and moist Neck: trachea midline, neck supple, No neck stiffness, no cervical adenopathy Respiratory: Breath sounds equal bilaterally, no wheezing, rales, or rhonchi Cardio: S1 and S2 present, no murmurs, rubs, gallops, capillary refill is brisk Abdomen: Normoactive bowel sounds, soft abdomen, no rigidity, no guarding or rebound tenderness Musc: small area of swelling surrounding distal upper arm/AV fistula, minimal to no tenderness, there is no surrounding redness or warmth, no crepitus, arm compartments are soft and pliable, no pain with passive flexion or extension distally, no paresthesia in the right arm, no pallor, distal pulses intact, no motor deficit in the right arm, no sign of compartment syndrome Skin: No rash Neuro: no facial drooping, normal speech Psych: Normal affect ED Course Vital Signs 07/09/18 15:52 Respiratory 16 Rate O2 Sat by Pulse 98 Oximetry ED Medical Decision Making - Lab Data Result diagrams: 07/09/18 15:31 07/09/18 15:31 - Medical Decision Making The patient was seen and examined by myself. The patient is placed on a monitoring tech and continuous pulse ox. On initial evaluation, the patient was found to be in no distress. Evaluation orders were placed. The patient is given pain medicine. Lab results revealed elevated glucose of 340. The patient and IV insulin for treatment of his hyperglycemia. A Doppler of the right upper extremity AV patient was performed and demonstrated intact AV fistula with good blood flow, and some surrounding soft tissue changes suggestive of hematoma. The patient is monitor and observed in the emergency department for greater than 3 hours without any progression of swelling. He states that he feels the swelling has ceased and that he feels fine to go home an follow up with his vascular surgeon. As the patient has no signs of compartment syndrome, and no progression of swelling throughout ED course, there are no signs of impending compartment syndrome at this time. As the patient is afebrile and with normal WBC, and with no signs of infection on exam , acute infection is unlikely at this time. The patient is stable for discharge with outpatient follow-up. The patient is given follow-up and return instructions. He is also given a prescription for clindamycin for prophylaxis of infection. The patient expressed understanding and agreed with the plan. The patient is discharged in stable condition. Critical care attestation.: If time is entered above; I have spent that time in minutes in the direct care of this critically ill patient, excluding procedure time. ED Disposition Clinical Impression: Pain in right upper arm Hematoma of arm Qualifiers: Encounter type: initial encounter Laterality: right Qualified Code(s): S40.021A - Contusion of right upper arm, initial encounter Disposition: DC-01 TO HOME OR SELFCARE Is pt being admited?: No Does the pt Need Aspirin: No Condition: Stable Instructions: Contusion in Adults (ED), Musculoskeletal Pain (ED) Prescriptions: Acetaminophen/Codeine [Tylenol #3] 1 tab PO Q6H PRN #14 tab PRN Reason: Pain Clindamycin [Clindamycin CAP] 300 mg PO TID 10 Days #30 cap Referrals: MARIFER BRANDON MD [Staff Physician] - 24 Hours Time of Disposition: 17:14
[2018-07-09] MEDS ORDERED: CLEOCIN PO ONE (17:35)
[2018-07-09 17:43] VITALS: BP 195/107
--- NOTE | 2018-07-10 19:24 | Vascular Lab Report ---
Duplex of right upper extremity arteriovenous graft Reason for exam: Pain over the arteriovenous graft Comments: The arteriovenous graft is patent. Vascular flow volume is 1000 mL per minute. This is within normal limits. There is a large fluid collection outside the confines of the AV graft which may be a hematoma. Impression: Probable hematoma surrounding the AV graft in the right upper extremity. AV graft is patent and right upper extremity.
== END 2018-07-09 18:05 | disposition home or self-care (01) ==
LOC: ED 15:03
DX: S40.021A Contusion of right upper arm, initial encounter (principal); I10 Essential (primary) hypertension; E11.9 Type 2 diabetes mellitus without complications; G43.909 Migraine, unspecified, not intractable, without status migrainosus; I21.4 Non-ST elevation (NSTEMI) myocardial infarction; Z86.73 Personal history of transient ischemic attack (TIA), and cerebral infarction without residual deficits; Z79.4 Long term (current) use of insulin
CPT/HCPCS: 36415; 80048; 80074; 85025; 85610; 85730; 86850; 86900; 86901; 93990; 96374; J1815

== ENCOUNTER 2018-07-21 12:41 | Day surgery (SDC) | payer MEDICARE ==
[2018-07-21] MEDS ORDERED: VANCOMYCIN/NS 1 GM/250 ML 1 GM/250 ML BAG IV SCH (13:03)
[2018-07-21] MEDS ORDERED: BENADRYL IV ONE (14:36)
[2018-07-21] MEDS ORDERED: SOLU-Medrol IV ONE (14:36)
[2018-07-21] MEDS ORDERED: PEPCID IV ONE (14:36)
[2018-07-21] MEDS ORDERED: HEPARIN/NS 5000 UNIT/500ML(CATH LAB) 1,000 ML IR ONE (18:01)
[2018-07-21] MEDS ORDERED: HEPARIN 10,000 UNITS/10 ML ONE (18:01)
[2018-07-21] MEDS ORDERED: XYLOCAINE 2% INFILTRATI ONE (18:02)
[2018-07-21] MEDS ORDERED: NACL 0.9% 500 ML 500 ML ONE (18:02)
[2018-07-21] MEDS: SUBLIMAZE ONE ×4 (18:26→19:27)
[2018-07-21] MEDS: VERSED ONE ×2 (18:26→18:38)
[2018-07-21] MEDS ORDERED: WATER FOR INJ (PF) ONE (18:40)
[2018-07-21] MEDS ORDERED: CATHFLO ONE (18:40)
--- NOTE | 2018-07-21 19:46 | Short Stay Summary ---
Short Stay Documentation Date of service: 07/21/18 Narrative H&P: 37 year old man with ESRD and thrombosed AVG - History Principal diagnosis: AVG thrombosed Past Medical History: ESRD Past Surgical History: Other (AVG revision) - Allergies and Medications Current Medications: Allergies cefazolin [From Ancef] Allergy (Verified 07/21/18 13:02) Vomiting shellfish derived Allergy (Verified 06/08/18 15:09) Anaphylaxis iodine Adverse Reaction (Severe, Verified 06/08/18 15:09) Vomiting IV dye Adverse Reaction (Severe, Uncoded 04/28/18 08:49) Vomiting Home Medications Medication Instructions Recorded Confirmed Last Taken Type Insulin Glargine [Lantus VIAL] 30 units SQ QHS #1 mo 02/05/18 07/21/18 07/20/18 Rx 30units Insulin Aspart [NovoLOG Flexpen] 4 units SQ AC PRN 03/03/18 07/21/18 07/20/18 History 4units Clonidine HCl [Catapres] 0.3 mg PO BID 04/14/18 07/21/18 07/20/18 History 0.3mg Potassium Chloride [K-Dur] 20 meq PO QDAY #7 tablet 05/09/18 07/21/18 07/20/18 Rx 20meq Vit B Complex 100 Combo No.2 100 mg PO DAILY 05/11/18 07/21/18 07/20/18 History 100mg HYDROcodone/APAP 7.5-325 [[place] 1 each PO Q6HR PRN #40 tablet 06/09/18 07/21/18 07/20/18 Rx 7.5/325] 1 Acetaminophen/Codeine [Tylenol #3] 1 tab PO Q6H PRN #14 tab 07/09/18 07/21/18 Rx 1 Clindamycin [Clindamycin CAP] 300 mg PO TID 10 Days #30 cap 07/09/18 07/21/18 Rx 300mg Active Medications Vancomycin HCl (Vancomycin/Ns 1 Gm/250 Ml) 1 gm in 250 mls @ 167.007 mls/hr IV PREOP SANDRINE; Protocol Stop: 07/21/18 23:00 Last Admin: 07/21/18 14:59 Dose: 167.007 mls/hr - Physical exam General appearance: no acute distress HEENT: EOMI Lungs: Normal air movement Gastrointestinal: normal - Brief post op/procedure progress note Date of procedure: 07/21/18 Pre-op diagnosis: ESRD with thrombosed AVG Post-op diagnosis: same Procedure: Central and peripheral dialysis angioplasty AVG thrombectomy Anesthesia: local (w/ conscious sedation) Surgeon: QUIN VICENTE Estimated blood loss: minimal Condition: stable - Hospital course Hospital course: Ready for discharge. - Disposition Condition at discharge: Stable Disposition: DC-01 TO HOME OR SELFCARE - Discharge Diagnoses (1) Thrombosis of arteriovenous graft Status: Acute (2) ESRD (end stage renal disease) on dialysis Status: Chronic Short Stay Discharge Plan Activity: advance as tolerated Weight Bearing Status: Weight Bear as Tolerated Diet: renal Wound: keep clean and dry Follow up with: CLARK KAN MD [Primary Care Provider] - 7 Days
--- NOTE | 2018-07-21 19:46 | Operative Report ---
Operative Report Operative Report: EXAM: 1. Ultrasound guided access of the AV graft towards the venous limb. 2. Selection of the right subclavian vein with venography 3. Angioplasty of the SVC and right innominate vein with a 12 mm x 60 mm angioplasty balloon 4. Infusion of 2 mg of TPA throughout the AV graft 4. Angioplasty of the AV graft with an 8 mm x 60 mm angioplasty balloon 5. Trerotola Mechanical thrombectomy of the AV graft 6. Deangelo sweep of the AV graft from the venous sheath to the central veins 7. Repeat angioplasty with 8 mm x 60 mm of the AVG, deangelo thrombectomy, and trerotola mechanical thrombectomy INDICATION: THROMBOSED RIGHT ARM AV LOOP GRAFT WITH END-STAGE RENAL DISEASE. DATE: 07/21/18 MEDICATIONS: Please refer to nursing documentation for complete list of medications and heparin administration. VERSED AND FENTANYL TITRATED TO MODERATE SEDATION. THE PATIENT WAS MONITORED UNDER CONTINUOUS CARDIOPULMONARY MONITORING THROUGHOUT THE CASE. COMPLICATIONS: NONE IMMEDIATE HIGH VOLTAGE ELECTRICIAN: QUIN VICENTE MD PROCEDURE: The procedure was discussed with the patient and the risks, benefits, and alternatives were discussed with the patient. Informed consent was obtained. The patient was transported into the angiography suite in stable condition and placed on the angiographic table. The right arm was assessed under real-time ultrasound which demonstrated a thrombosed right arm AV graft. The patient was prepped and draped in a sterile fashion. Lidocaine was used to anesthetize the skin. Under ultrasound guidance, the AV graft was punctured with the needle pointing towards the venous limb close to the arterial anastamosis. 0.018 inch wire was advanced through the needle and this was exchanged for a transitional dilator. The inner dilator and wire were removed and a 0.035 inch [place] wire was advanced through the transitional dilator. The dilator was exchanged for a 7 [place] short sheath. Angled catheter was advanced over the wire and the wire was advanced into the inferior vena cava under fluoroscopic guidance. Then the wire was removed and the Angled catheter was used to perform a pullback venogram. Digital subtraction venography was performed in the right subclavian vein which demonstrated 50% narrowing of the SVC. Angioplasty was performed of the SVC and right innominate vein with a 12 mm x 60 mm angioplasty balloon. There was 25% residual narrowing of the SVC. The catheter was pulled back until clot was encountered. 2 mg of TPA were infused through the length of the clot to the sheath as the arterial anastomosis was manually compressed. Catheter was exchanged for an 8 mm x 6 cm balloon and the venous limb was sequentially venoplasty. Trerotola thrombectomy device was used multiple times through the venous limb. Trerotola device was then removed. Angled catheter and [place] wire were negotiated into the inferior vena cava. The Deangelo balloon was used to sweep from the sheath to the central veins. The deangelo would not easily pass over the [place] wire and the wire was exchanged for a Glidewire advantage. Deangelo was then passed from the sheath to the central veins multiple times and there was jain of a thrill. Digital subtraction angiography was performed demonstrating partially flow limited thrombus in the mid and distal portion of the graft. This was macerated with an 8 mm x 60 mm angioplasty balloon and Deangelo thrombectomy was used to push this centrally. Mechanical thrombectomy was repeated with Trerotola mechanical thrombectomy device. After this was performed a few times , there was minimal thrombus which was not flow-limiting in the mid and distal portions of the graft. The axillary stent-graft was widely patent. Subclavian vein was widely patent. The SVC had 25% residual narrowing. Ultrasound was used to evaluate the arterial anastomosis which was patent and the perianastomotic portion of the graft which was widely patent. The rest of the graft could be visualized fluoroscopically and was patent. All the wires were removed. 3-0 Vicryl sutures were used to close the fistula access sites. Dermabond was applied. Pressure was held until hemostasis was achieved. The patient was then transferred to the outpatient recovery area. FINDINGS: Please see the procedure note for the findings. IMPRESSION: 1. Successful pharmacomechanical thrombectomy of the thrombosed right AV graft. 2. Successful angioplasty of the central and peripheral portion of the dialysis access. 4. Final imaging demonstrates no areas of focal stenosis within the AV graft on completion venography.
[2018-07-21 21:03] VITALS: BP 135/79
== END 2018-07-21 21:22 | disposition home or self-care (01) ==
LOC: CATHLABREC 12:41
PROVIDERS: ATTEND Radiology Diagnostic Radiology
DX: T82.868A Thrombosis due to vascular prosthetic devices, implants and grafts, initial encounter (principal); E11.22 Type 2 diabetes mellitus with diabetic chronic kidney disease; I12.0 Hypertensive chronic kidney disease with stage 5 chronic kidney disease or end stage renal disease; N18.6 End stage renal disease; D63.1 Anemia in chronic kidney disease; I87.1 Compression of vein; E11.43 Type 2 diabetes mellitus with diabetic autonomic (poly)neuropathy; E11.69 Type 2 diabetes mellitus with other specified complication; I25.118 Atherosclerotic heart disease of native coronary artery with other forms of angina pectoris; I25.2 Old myocardial infarction; K21.9 Gastro-esophageal reflux disease without esophagitis; E78.00 Pure hypercholesterolemia, unspecified; Z79.4 Long term (current) use of insulin; Z79.899 Other long term (current) drug therapy; Z91.041 Radiographic dye allergy status; Z91.013 Allergy to seafood; Z88.8 Allergy status to other drugs, medicaments and biological substances; Z86.73 Personal history of transient ischemic attack (TIA), and cerebral infarction without residual deficits; Z98.890 Other specified postprocedural states; Y83.2 Surgical operation with anastomosis, bypass or graft as the cause of abnormal reaction of the patient, or of later complication, without mention of misadventure at the time of the procedure
CPT/HCPCS: 36415; 36905; 36907; 84132; 99156; 99157; C1725; C1751; C1757; C1769; C1894; J1200; J1644; J2250; J2930; J2997; J3010; J3370; J7040; Q9967

== ENCOUNTER 2018-07-25 11:36 | Inpatient (IN) | payer MEDICARE ==
[2018-07-25] MEDS ORDERED: ASPIRIN PO ONE ×2 (12:25→13:07)
[2018-07-25] MEDS ORDERED: NITRO-BID 2% TP ONE (12:59)
[2018-07-25] MEDS ORDERED: NORMODYNE IV ONE ×2 (12:59→13:59)
[2018-07-25] MEDS ORDERED: ZOFRAN IV ONE (13:07)
[2018-07-25] MEDS ORDERED: MORPHINE IV ONE (13:07)
--- NOTE | 2018-07-25 13:10 | Emergency Department Report ---
ED Chest Pain HPI - General Chief Complaint: Chest Pain Stated Complaint: CHEST PAIN Time Seen by Provider: 07/25/18 12:35 Source: patient, EMS Mode of arrival: Stretcher Limitations: No Limitations - History of Present Illness Initial Comments: The patient presents for evaluation of chest pain. He describes a nonpleuritic substernal chest pain which does not radiate and is associated with shortness of breath. There is been no cough fever or chills. Patient states this feels different than a prior pulmonary embolism. He was on Elavil but she states for 3 months and then it was discontinued. He states that he had the chest pain during dialysis but did not mention it to anyone. He has a history of diabetes. He states that he has had a prior cardiac catheterization which showed an 85% lesion which was not stented. He does not describe nausea vomiting or acute dizziness. The chest pain is still present and moderate in intensity. Patient states that he took his blood pressure medicines today. Do not see that he is taking anything besides clonidine for his blood pressure from his ambulatory list. Patient states he has been compliant with his dialysis. He states that his AV graft was declotted last Tuesday. MD Complaint: chest pain -: Gradual, days(s) Onset: during rest Pain Location: substernal Pain Radiation: none Severity: moderate, severe Quality: aching Consistency: constant Improves With: nothing Worsens With: nothing re: dyspnea Other Symptoms: denies: cough, fever, syncope Treatments Prior to Arrival: none Aspirin use within the Past 7 Days: (0) No - Related Data Home Medications Medication Instructions Recorded Confirmed Last Taken Insulin Aspart [NovoLOG Flexpen] 4 units SQ AC PRN 03/03/18 07/25/18 07/20/18 4units Clonidine HCl [Catapres] 0.3 mg PO BID 04/14/18 07/25/18 07/20/18 0.3mg Previous Rx's Medication Instructions Recorded Last Taken Type Insulin Glargine [Lantus VIAL] 30 units SQ QHS #1 mo 02/05/18 07/20/18 Rx 30units Potassium Chloride [K-Dur] 20 meq PO QDAY #7 tablet 05/09/18 07/20/18 Rx 20meq Allergies Allergy/AdvReac Type Severity Reaction Status Date / Time cefazolin [From Anc] Allergy Vomiting Verified 07/21/18 13:02 shellfish derived Allergy Anaphylaxis Verified 06/08/18 15:09 iodine AdvReac Severe Vomiting Verified 06/08/18 15:09 IV dye AdvReac Severe Vomiting Uncoded 04/28/18 08:49 Heart Score - HEART Score History: Slightly suspicious EKG: Non-specific Age: < 45 Risk factors: > 3 risk factors or hx of atherosclerotic disease Troponin: 1-3x normal limit HEART Score: 4 - Critical Actions Critical Actions: 4-6 pts:12-16.6% risk of adverse cardiac event. Should be admitted ED Review of Systems ROS: Stated complaint: CHEST PAIN Other details as noted in HPI Constitutional: denies: chills, fever Eyes: denies: eye pain, eye discharge, vision change ENT: denies: ear pain, throat pain Respiratory: shortness of breath. denies: cough, wheezing Cardiovascular: chest pain. denies: palpitations Endocrine: no symptoms reported Gastrointestinal: denies: abdominal pain, nausea, diarrhea Genitourinary: denies: urgency, dysuria Musculoskeletal: denies: back pain, joint swelling, arthralgia Skin: denies: rash, lesions Neurological: denies: headache, weakness, paresthesias Psychiatric: denies: anxiety, depression Hematological/Lymphatic: denies: easy bleeding, easy bruising ED Past Medical Hx - Past Medical History Hx Hypertension: Yes (Coreg ) Hx CVA: Yes (TIA's) Hx Heart Attack/AMI: Yes (NSTEMI) Hx Diabetes: Yes Hx Renal Disease: Yes Hx Headaches / Migraines: Yes (Migraines) Hx Psychiatric Treatment: No Additional medical history: gastroparesis, PE - Surgical History Additional Surgical History: left eye surgery, right toe amputation, right chest vas cath. GRAFT RIGHT UPPER ARM. Graft revision 06/2018 per pt - Social History Smoking Status: Never Smoker Substance Use Type: None - Medications Home Medications: Home Medications Medication Instructions Recorded Confirmed Last Taken Type Insulin Glargine [Lantus VIAL] 30 units SQ QHS #1 mo 02/05/18 07/25/18 07/20/18 Rx 30units Insulin Aspart [NovoLOG Flexpen] 4 units SQ AC PRN 03/03/18 07/25/18 07/20/18 History 4units Clonidine HCl [Catapres] 0.3 mg PO BID 04/14/18 07/25/18 07/20/18 History 0.3mg Potassium Chloride [K-Dur] 20 meq PO QDAY #7 tablet 05/09/18 07/25/18 07/20/18 Rx 20meq ED Physical Exam - General Limitations: No Limitations General appearance: obese - Head Head exam: Present: atraumatic, normocephalic - Eye Eye exam: Present: normal appearance. Absent: scleral icterus - ENT ENT exam: Present: mucous membranes moist - Neck Neck exam: Present: normal inspection. Absent: tenderness, meningismus - Respiratory Respiratory exam: Present: normal lung sounds bilaterally. Absent: respiratory distress - Cardiovascular Cardiovascular Exam: Present: regular rate, normal rhythm. Absent: systolic murmur, diastolic murmur, rubs, gallop - GI/Abdominal GI/Abdominal exam: Present: soft, normal bowel sounds. Absent: distended, tenderness, guarding, rebound - Rectal Rectal exam: Present: deferred - Extremities Exam Extremities exam: Present: other (bilateral pretibial edema or thigh tenderness , AV graft in the right upper extremity with pulse and thrill. Suture in place from recent procedure.) - Back Exam Back exam: Present: normal inspection - Neurological Exam Neurological exam: Present: alert, oriented X3, CN II-XII intact (as tested). Absent: motor sensory deficit - Psychiatric Psychiatric exam: Present: normal affect, normal mood - Skin Skin exam: Present: warm, dry, intact, normal color. Absent: rash ED Course Vital Signs 07/25/18 07/25/18 07/25/18 12:16 12:24 14:13 Temperature 97.6 F 97.6 F Pulse Rate 103 H 103 H 95 H Respiratory 23 23 Rate Blood Pressure 190/106 231/109 Blood Pressure 190/106 [Left] O2 Sat by Pulse 100 100 Oximetry 07/25/18 07/25/18 07/25/18 14:15 14:21 14:27 Temperature 98 F Pulse Rate 98 H Respiratory 23 Rate Blood Pressure 231/107 Blood Pressure [Left] O2 Sat by Pulse 98 Oximetry - Reevaluation(s) Reevaluation #1: Patient found to be significantly hypertensive. We'll try to adjust this with nitrates and labetalol. It would appear necessary to admit the patient already. We are gathering up his database and will discuss with the hospitalist. 07/25/18 13:10 07/25/18 14:10 On repeat evaluation, found the patient's blood pressure to be considerably higher at 250/115. Medication was ordered. The nurse is Ottoniel Prado treat this and possibly start a nicardipine drip as needed if there is no significant progress. Reevaluation #2: Patient presents some therapeutic and diagnostic dilemma is. He is now satting at 100%. Rectal breathing is fine. However he has elevated d-dimer and a history of pulmonary embolism on V/Q scan in April 2018. I would empirically heparinize him. However, we will wait for his blood pressure to be reasonably well controlled before that. I am awaiting a call from the copper tapper to see if they want to proceed with a CT angiogram or just repeat the VQ scan. Patient is referred to Dr. Patel of the hospitalist service. Patient will likely require ICU admission. 07/25/18 14:13 Reevaluation #3: His pressure is now amply control. I started him on a modified heparin bolus and standard trip. CTA is pending. 07/25/18 14:45 Reevaluation #4: She states that he had vomiting after his CT A in 2017. However he states that he is given Benadryl and Pepcid and steroids prior to the clotting procedures. I'm going to hold the Angiocath for now and order a VQ scan. 07/25/18 14:49 RUFINA score - Rufina Score Age > 65: (0) No Aspirin use within the Past 7 Days: (0) No 3 or more CAD Risk Factors: (1) Yes 2 or more Angina events in past 24 hrs: (1) Yes Known CAD with more than 50% Stenosis: (1) Yes Elevated Cardiac Markers: (1) Yes ST Deviation Greater than 0.5mm: (0) No RUFINA Score: 4 ED Medical Decision Making - Lab Data Result diagrams: 07/25/18 13:13 07/25/18 13:13 Laboratory Results - last 24 hr 07/25/18 07/25/18 07/25/18 13:13 13:13 13:13 WBC 14.8 H RBC 4.16 Hgb 12.2 Hct 37.1 MCV 89 MCH 29 MCHC 33 RDW 16.9 H Plt Count 136 L Lymph % (Auto) 8.2 L [place] % (Auto) 4.9 Eos % (Auto) 0.4 Baso % (Auto) 0.4 Lymph # 1.2 [place] # 0.7 Eos # 0.1 Baso # 0.1 Seg Neutrophils % 86.1 H Seg Neutrophils # 12.7 H PT 13.7 INR 1.00 APTT 25.7 D-Dimer 1263.29 H Sodium 138 Potassium 3.8 Chloride 94.3 L Carbon Dioxide 23 Anion Gap 25 BUN 31 H Creatinine 8.3 H Estimated GFR 9 BUN/Creatinine Ratio 4 Glucose 225 H Calcium 8.5 Total Bilirubin Direct Bilirubin Indirect Bilirubin AST ALT Alkaline Phosphatase Total Creatine Kinase CK-MB (CK-2) CK-MB (CK-2) Rel Index Troponin T 0.384 H* NT-Pro-B Natriuret Pep Total Protein Albumin Albumin/Globulin Ratio 07/25/18 13:13 WBC RBC Hgb Hct MCV MCH MCHC RDW Plt Count Lymph % (Auto) [place] % (Auto) Eos % (Auto) Baso % (Auto) Lymph # [place] # Eos # Baso # Seg Neutrophils % Seg Neutrophils # PT INR APTT D-Dimer Sodium Potassium Chloride Carbon Dioxide Anion Gap BUN Creatinine Estimated GFR BUN/Creatinine Ratio Glucose Calcium Total Bilirubin 0.40 Direct Bilirubin < 0.2 Indirect Bilirubin 0.2 AST 20 ALT 16 Alkaline Phosphatase 91 Total Creatine Kinase 243 H CK-MB (CK-2) 10.2 H CK-MB (CK-2) Rel Index 4.1 H Troponin T NT-Pro-B Natriuret Pep 4471 H Total Protein 8.2 Albumin 4.3 Albumin/Globulin Ratio 1.1 Laboratory Results - last 24 hr 07/25/18 07/25/18 07/25/18 13:13 13:13 13:13 WBC 14.8 H RBC 4.16 Hgb 12.2 Hct 37.1 MCV 89 MCH 29 MCHC 33 RDW 16.9 H Plt Count 136 L Lymph % (Auto) 8.2 L [place] % (Auto) 4.9 Eos % (Auto) 0.4 Baso % (Auto) 0.4 Lymph # 1.2 [place] # 0.7 Eos # 0.1 Baso # 0.1 Seg Neutrophils % 86.1 H Seg Neutrophils # 12.7 H PT 13.7 INR 1.00 APTT 25.7 D-Dimer 1263.29 H Sodium 138 Potassium 3.8 Chloride 94.3 L Carbon Dioxide 23 Anion Gap 25 BUN 31 H Creatinine 8.3 H Estimated GFR 9 BUN/Creatinine Ratio 4 Glucose 225 H Calcium 8.5 Total Bilirubin Direct Bilirubin Indirect Bilirubin AST ALT Alkaline Phosphatase Total Creatine Kinase CK-MB (CK-2) CK-MB (CK-2) Rel Index Troponin T 0.384 H* NT-Pro-B Natriuret Pep Total Protein Albumin Albumin/Globulin Ratio 07/25/18 13:13 WBC RBC Hgb Hct MCV MCH MCHC RDW Plt Count Lymph % (Auto) [place] % (Auto) Eos % (Auto) Baso % (Auto) Lymph # [place] # Eos # Baso # Seg Neutrophils % Seg Neutrophils # PT INR APTT D-Dimer Sodium Potassium Chloride Carbon Dioxide Anion Gap BUN Creatinine Estimated GFR BUN/Creatinine Ratio Glucose Calcium Total Bilirubin 0.40 Direct Bilirubin < 0.2 Indirect Bilirubin 0.2 AST 20 ALT 16 Alkaline Phosphatase 91 Total Creatine Kinase 243 H CK-MB (CK-2) 10.2 H CK-MB (CK-2) Rel Index 4.1 H Troponin T NT-Pro-B Natriuret Pep 4471 H Total Protein 8.2 Albumin 4.3 Albumin/Globulin Ratio 1.1 - EKG Data -: EKG Interpreted by Me EKG shows normal: sinus rhythm, axis, intervals, QRS complexes, ST-T waves Rate: normal - EKG Data Interpretation: nonspecific ST-T wave mandi - Radiology Data Radiology results: report reviewed interpreted by me: Mild cardiomegaly. No acute decompensation noted. Critical Care Time: Yes Critical care time in (mins) excluding proc time.: 90 Critical care attestation.: If time is entered above; I have spent that time in minutes in the direct care of this critically ill patient, excluding procedure time. ED Disposition Clinical Impression: Malignant hypertension, Elevated troponin, Elevated d-dimer, IDDM (insulin dependent diabetes mellitus) Chest pain Qualifiers: Chest pain type: unspecified Qualified Code(s): R07.9 - Chest pain, unspecified CAD (coronary artery disease) Qualifiers: Coronary Disease-Associated Artery/Lesion type: [place] artery [place] vs. transplanted heart: unspecified whether [place] or transplanted heart Associated angina: without angina Qualified Code(s): I25.10 - Atherosclerotic heart disease of [place] coronary artery without angina pectoris Cardiomyopathy Qualifiers: Cardiomyopathy type: unspecified Qualified Code(s): I42.9 - Cardiomyopathy, unspecified Disposition: DC-09 OP ADMIT IP TO THIS HOSP Is pt being admited?: Yes Does the pt Need Aspirin: Yes Condition: Stable Instructions: Chest Pain (ED), Diabetes Mellitus Type 2 in Adults (ED), Hypertension (ED) Referrals: PRIMARY CARE,MD [Primary Care Provider] - 3-5 Days Time of Disposition: 14:51
[2018-07-25 13:20] LABS: Basophils # (Auto) 0.1 K/mm3 (0.0-0.1); Basophils % (Auto) 0.4 % (0.0-1.8); Eosinophils # (Auto) 0.1 K/mm3 (0.0-0.4); Eosinophils % (Auto) 0.4 % (0.0-4.3); Hematocrit 37.1 % (35.5-45.6); Hemoglobin 12.2 gm/dl (11.8-15.2); Lymphocytes # (Auto) 1.2 K/mm3 (1.2-5.4); Lymphocytes % (Auto) 8.2 % (13.4-35.0); Mean Corpuscular HGB Conc 33 % (32-34); Mean Corpuscular Hemoglobin 29 pg (28-32); Mean Corpuscular Volume 89 fl (84-94); Monocytes # (Auto) 0.7 K/mm3 (0.0-0.8); Monocytes % (Auto) 4.9 % (0.0-7.3); Platelet Count 136 K/mm3 (140-440); Red Blood Count 4.16 M/mm3 (3.65-5.03); Red Cell Distribution Width 16.9 % (13.2-15.2)
--- NOTE | 2018-07-25 13:31 | XRay Report ---
AP CHEST: HISTORY: Hypertension AP view of the chest demonstrates a normal mediastinal and cardiac contour with clear lungs and normal bony and soft tissue structures. IMPRESSION: Unremarkable AP chest. No change since 05/10/18.
[2018-07-25 13:32] LABS: Partial Thromboplastin Time 25.7 Sec. (24.2-36.6)
[2018-07-25 13:41] LABS: Calcium 8.5 mg/dL (8.4-10.2)
[2018-07-25 13:42] LABS: Creatine Kinase MB 10.2 ng/mL (0.0-4.0)
[2018-07-25 13:44] LABS: Alanine Aminotransferase 16 units/L (7-56); Albumin 4.3 g/dL (3.9-5)
[2018-07-25 13:47] LABS: Bilirubin,Direct < 0.2 mg/dL (0-0.2)
[2018-07-25] MEDS ORDERED: CARDENE 50 MG in NACL 0.9% 250ML 230 ML IV SCH (14:00)
--- NOTE | 2018-07-25 14:15 | History and Physical Report ---
History of Present Illness Chief complaint: My chest hurts, and ally been throwing up History of present illness: 37 YO Male with ESRD on HD(M,W,F), HTN, TIA, PE, DM complicated by Gastroparesis , OR presents to ED for evaluation. Pt states that he has experienced chest pain for the past 1 day with persistent symptoms over the same time frame. Pt states that pain is 4/10, substernal, nonradiating, not worsened with exertion, or relieved with rest, constant. Pt acknowledges shortness of breath. Pt also reports nausea, and multiple episodes of vomiting over the past 1 day. Pt seen and evaluated in ED and found to have evidence of ESRD, SIRS, CHF, and ACS. Pt denies fever, chills, Palpitations, Syncope, Hemoptysis, BRBPR, unintentional weight loss, night sweats, prolonged travel/immobility, unilateral leg swelling/ calf pain. Pt admitted to telemetry. Cardiology and Nephrology teams consulted in ED. Past History Past Medical History: acute OR, diabetes, ESRD, hypertension, migraines, stroke Past Surgical History: Other ( left eye surgery, right toe amputation, right chest vas cath. GRAFT RIGHT UPPER ARM. Graft revision 06/2018 per pt) Social history: , lives with family. denies: smoking, alcohol abuse, prescription drug abuse Family history: diabetes, hypertension Medications and Allergies Allergies Allergy/AdvReac Type Severity Reaction Status Date / Time cefazolin [From Anc] Allergy Vomiting Verified 07/21/18 13:02 shellfish derived Allergy Anaphylaxis Verified 06/08/18 15:09 iodine AdvReac Severe Vomiting Verified 06/08/18 15:09 IV dye AdvReac Severe Vomiting Uncoded 04/28/18 08:49 Home Medications Medication Instructions Recorded Confirmed Last Taken Type Insulin Glargine [Lantus VIAL] 30 units SQ QHS #1 mo 02/05/18 07/25/18 07/20/18 Rx 30units Insulin Aspart [NovoLOG Flexpen] 4 units SQ AC PRN 03/03/18 07/25/18 07/20/18 History 4units Clonidine HCl [Catapres] 0.3 mg PO BID 04/14/18 07/25/18 07/20/18 History 0.3mg Potassium Chloride [K-Dur] 20 meq PO QDAY #7 tablet 0707/25/18 07/20/18 Rx 20meq Active Meds: Active Medications Nicardipine HCl 50 mg/ Sodium (Chloride) 250 mls @ 25 mls/hr IV TITR SANDRINE; Protocol Review of Systems Constitutional: no weight loss, no fever, no chills Ears, nose, mouth and throat: no ear pain, no ear discharge, no tinnitis, no decreased hearing, no nose pain, no nasal discharge Cardiovascular: chest pain, no rapid/irregular heart beat, no edema, no syncope , no lightheadedness Respiratory: no cough, no cough with sputum, no excessive sputum, no hemoptysis , no shortness of breath Gastrointestinal: nausea, vomiting, no diarrhea, no constipation, no BRBPR, no melena, no hematochezia, no loss of appetite Genitourinary Male: no hematuria, no flank pain, no discharge, no urinary frequency, no urinary hesitancy Rectal: no pain, no incontinence, no bleeding, no itching, no hemorrhoids, no discharge Musculoskeletal: no neck stiffness, no hot joints, no morning stiffness, no muscle weakness Integumentary: no rash, no pruritis, no redness, no sores, no jaundice, no growths, no depigmentation, no dryness, no color changes Neurological: no head injury, no transient paralysis, no paralysis, no weakness , no headaches, no migraines, no tic Psychiatric: no anxiety, no memory loss, no change in sleep habits, no sleep disturbances, no hypersomnia, no change in appetite, no suicidal ideation, no paranoia, no depression, no hopelessness, no anxiety attacks, no difficulties concentrating, no confusion Endocrine: no cold intolerance, no heat intolerance, no polyphagia, no excessive thirst, no polydipsia, no polyuria, no excessive sweating Hematologic/Lymphatic: no easy bruising, no easy bleeding, no lymphadenopathy, no lymphedema Allergic/Immunologic: no urticaria, no allergic rhinitis, no persistent infections, no anaphylaxis Exam - Constitutional Vitals: Temp Pulse Resp BP Pulse Ox 97.6 F 95 H 23 231/109 100 07/25/18 12:24 07/25/18 14:13 07/25/18 12:24 07/25/18 14:13 07/25/18 12:24 General appearance: Present: mild distress - EENT Eyes: Present: PERRL ENT: hearing intact, clear oral mucosa - Neck Neck: Present: supple, normal ROM - Respiratory Respiratory effort: normal Respiratory: bilateral: CTA - Cardiovascular Heart Sounds: Present: S1 & S2. Absent: rub, click - Extremities Extremities: pulses symmetrical, No edema Peripheral Pulses: within normal limits - Abdominal General gastrointestinal: Present: soft, non-tender, non-distended, normal bowel sounds Male genitourinary: Present: normal - Integumentary Integumentary: Present: clear, warm, dry - Musculoskeletal Musculoskeletal: gait normal, strength equal bilaterally - Psychiatric Psychiatric: appropriate mood/affect, intact judgment & insight - Neurologic Neurologic: CNII-XII intact, moves all extremities Results - Labs CBC & Chem 7: 07/25/18 13:13 07/25/18 13:13 Labs: Abnormal lab results 07/25/18 07/25/18 07/25/18 Range/Units 13:13 13:13 13:13 WBC 14.8 H (4.5-11.0) K/mm3 RDW 16.9 H (13.2-15.2) % Plt Count 136 L (140-440) K/mm3 Lymph % (Auto) 8.2 L (13.4-35.0) % Seg Neutrophils % 86.1 H (40.0-70.0) % Seg Neutrophils # 12.7 H (1.8-7.7) K/mm3 D-Dimer 1263.29 H (0-234) ng/mlDDU Chloride 94.3 L (98-107) mmol/L BUN 31 H (9-20) mg/dL Creatinine 8.3 H (0.8-1.5) mg/dL Glucose 225 H (75-100) mg/dL Total Creatine Kinase (55-170) units/L CK-MB (CK-2) (0.0-4.0) ng/mL CK-MB (CK-2) Rel Index (0-4) Troponin T 0.384 H* (0.00-0.029) ng/mL NT-Pro-B Natriuret Pep (0-450) pg/mL 07/25/18 Range/Units 13:13 WBC (4.5-11.0) K/mm3 RDW (13.2-15.2) % Plt Count (140-440) K/mm3 Lymph % (Auto) (13.4-35.0) % Seg Neutrophils % (40.0-70.0) % Seg Neutrophils # (1.8-7.7) K/mm3 D-Dimer (0-234) ng/mlDDU Chloride (98-107) mmol/L BUN (9-20) mg/dL Creatinine (0.8-1.5) mg/dL Glucose (75-100) mg/dL Total Creatine Kinase 243 H (55-170) units/L CK-MB (CK-2) 10.2 H (0.0-4.0) ng/mL CK-MB (CK-2) Rel Index 4.1 H (0-4) Troponin T (0.00-0.029) ng/mL NT-Pro-B Natriuret Pep 4471 H (0-450) pg/mL Assessment and Plan - Patient Problems (1) ESRD (end stage renal disease) on dialysis Current Visit: Yes Status: Acute Plan to address problem: Nephrology consulted for dialysis, strict I/O, monitor uop q shift, daily weight , avoid nephrotoxic agents, (2) SIRS (systemic inflammatory response syndrome) Current Visit: Yes Status: Acute Plan to address problem: Empiric IV antibiotic therapy, repeat CBC, urinalysis, blood cultures, serial lactic acid (3) CHF (congestive heart failure) Current Visit: Yes Status: Acute Qualifiers: Heart failure type: systolic Heart failure chronicity: acute on chronic Qualified Code(s): I50.23 - Acute on chronic systolic (congestive) heart failure Plan to address problem: Cardiology consulted, afterload reduction, serial cardiac enzymes, telemetry, Echo, d dimer,supportive care. (4) Accelerated hypertension Current Visit: Yes Status: Acute Plan to address problem: Monitor bp q shift, resume prehospital antihypertensive therapy, (5) Pulmonary embolism Current Visit: Yes Status: Acute Qualifiers: Chronicity: chronic Plan to address problem: Restart therapeutic anticoagulation with heparin drip, VQ scan, supportive care. admit to telemetry, d dimer, (6) ACS (acute coronary syndrome) Current Visit: Yes Status: Acute Plan to address problem: Admit to telemetry, serial cardiac enzymes, ekg, cardiology consulted in ED, Echo, supplemental oxygen, (7) DVT prophylaxis Current Visit: Yes Status: Acute Plan to address problem: SCD to BLE while in bed.
[2018-07-25] MEDS ORDERED: HEPARIN 10,000 UNITS/10 ML IV ONE (14:43)
[2018-07-25] MEDS ORDERED: SODIUM CHLORIDE FLUSH SYRINGE 10 ML IV PRN ×2 (14:52)
[2018-07-25] MEDS ORDERED: TYLENOL PO PRN (14:52)
[2018-07-25] MEDS ORDERED: NON-FORMULARY (Insulin Aspart [Novolog Flexpen] 4 UNITS) SQ PRN (14:59)
[2018-07-25 15:00] LABS: Chol/HDL Ratio 4.89 %
--- NOTE | 2018-07-25 15:47 | Consultation ---
History of Present Illness - History of Present Illness Thank you for the consultation ! Patient was evaluated today My assessment and plan are as follows; End-stage renal patient is currently on maintenance hemodialysis, he will need to be dialyzed 3 times a week, there is no immediate indication for renal replacement therapy given the patient has been experiencing chest discomfort and has abnormal troponin He needs to be seen and evaluated by cardiology first, his troponin is much higher than ESRD standard, suspect non-ST elevation NC to be ruled out We will likely consider dialysis tomorrow morning Anemia and end-stage renal disease: To monitor and follow, hemoglobin is currently 12.2 Leukocytosis:? Stress response. Follow for now Secondary hyperparathyroidism: Check phosphorus and PTH level Hypertension: Monitor. Keep blood pressure around 140 systolic Abnormal troponin: Significantly elevated for ESRD status, Please consider cardiology evaluation, elevated MB fraction History of long-standing poorly controlled diabetes, patient does suffer from spells of gastroparesis Patient was adequately counseled and educated regarding multiple renal related issues. overall prognosis remains guarded at this time All renal related questions were answered and simple Urdu pertinent lab studies as well as imaging results were also discussed with patient We will continue to follow and make recommendations from renal standpoint. Thank you for the consultation Author: Flavio Méndez M.D.[facility], [address] [place] [address] Tel; [phone] history of present illness Patient is a 37-year-old -Maced[place] male who is currently on maintenance hemodialysis. Patient has been admitted here with uncontrolled hypertension abnormal cardiac enzyme is normal dialysis days are Tuesday and Tuesday , he does complain of mild shortness of breath. According to patient his pain was approximately 4/10 in severity in the substernal area he also has history of diabetic gastroparesis and concurrently has been complaining of some nausea and vomiting, is currently pending cardiology evaluation as his troponin is significantly elevated He does not have any indication for renal replacement therapy today Past medical history significant for End-stage renal disease Anemia and end-stage renal disease Secondary hyperparathyroidism TIA Pulmonary embolism Severe diabetic gastroparesis Diabetes mellitus with end organ damage Current allergies: Ancef and shellfish iodine Current medication: Reviewed Social history: Reviewed from the current chart Family history: Reviewed from the current chart Review of system: Positive for All other review of systems negative, Physical examination Vitals: Reviewed General: patient appears to be uncomfortable mostly due to chest discomfort HEENT: Oral mucosa moist no pallor or icterus Neck: Supple without any JVD thyromegaly or nodular mass Chest: Clear to auscultation Heart: Regular rate and rhythm S1-S2 heard no S3-S4 Abdomen: Soft nontender, bowel sounds present no renal bruit no suprapubic masses no CVA tenderness noted Extremity: Minimal edema dry skin no peripheral cyanosis Endocrine: Thyroid not enlarged Psychiatric: No agitation and aggression noted Musculoskeletal: No joint effusion noted Labs and x-rays: Reviewed from this admission Medications and Allergies Allergies Allergy/AdvReac Type Severity Reaction Status Date / Time cefazolin [From [facility]] Allergy Vomiting Verified 07/21/18 13:02 shellfish derived Allergy Anaphylaxis Verified 06/08/18 15:09 iodine AdvReac Severe Vomiting Verified 06/08/18 15:09 IV dye AdvReac Severe Vomiting Uncoded 04/28/18 08:49 Home Medications Medication Instructions Recorded Confirmed Last Taken Type Insulin Glargine [Lantus VIAL] 30 units SQ QHS #1 mo 02/05/18 07/25/18 07/20/18 Rx 30units Insulin Aspart [NovoLOG Flexpen] 4 units SQ AC PRN 03/03/18 07/25/18 07/20/18 History 4units Clonidine HCl [Catapres] 0.3 mg PO BID 04/14/18 07/25/18 07/20/18 History 0.3mg Potassium Chloride [K-Dur] 20 meq PO QDAY #7 tablet 05/09/18 07/25/18 07/20/18 Rx 20meq Active Meds: Active Medications Acetaminophen (Tylenol) 650 mg PO Q4H PRN PRN Reason: Pain MILD(1-3)/Fever >100.5/SOARES Clonidine HCl (Catapres) 0.3 mg PO BID [facility] Hydralazine HCl (Apresoline) 10 mg IV Q6HR PRN PRN Reason: Hypertension Heparin Sodium/Sodium Chloride (Heparin/ 0.45% Nacl-25,000 Unit/500 Ml) 25,000 unit in 500 mls @ 27 mls/hr IV TITR [facility]; Protocol Vancomycin HCl 1,750 mg/ (Sodium Chloride) 517.5 mls @ 258.75 mls/hr IV ONCE ONE; Protocol Stop: 07/25/18 17:59 Insulin Glargine (Lantus) 30 units SUB-Q QHS [facility] Miscellaneous Medication (Insulin Aspart [Novolog Flexpen]) 4 units SQ AC PRN PRN Reason: Hyperglycemia Ondansetron HCl (Zofran) 4 mg IV Q8H PRN PRN Reason: Nausea And Vomiting Potassium Chloride (K-Dur) 20 meq PO QDAY [facility] Sodium Chloride (Sodium Chloride Flush Syringe 10 Ml) 10 ml IV BID [facility] Sodium Chloride (Sodium Chloride Flush Syringe 10 Ml) 10 ml IV PRN PRN PRN Reason: LINE FLUSH Sodium Chloride (Sodium Chloride Flush Syringe 10 Ml) 10 ml IV PRN PRN PRN Reason: LINE FLUSH Exam - Vital Signs Vital signs: Vital Signs Pulse Resp 101 H 20 07/25/18 12:10 07/25/18 12:10 Results - Lab Results 07/25/18 17:28 07/25/18 13:13 Most recent lab results Calcium 8.5 mg/dL (8.4-10.2) 07/25/18 13:13
[2018-07-25] MEDS ORDERED: ZOFRAN ONE (15:59)
[2018-07-25] MEDS ORDERED: APRESOLINE ONE (15:59)
--- NOTE | 2018-07-25 15:59 | Nuclear Medicine Report ---
FINAL REPORT EXAM: NM LUNG SCAN PERF/VENT HISTORY: chest pain and elevated d-dimer TECHNIQUE: Lung ventilation with 22.7 mCi of xenon-133 gas Lung perfusion with 4.09 mCi of IV technetium 99m MAA Standard multiple planar ventilation and perfusion lung images PRIORS: One-view chest 07/25/2018 FINDINGS: Ventilation and perfusion uptake is diffusely homogeneous bilaterally without focal matched or mismatched defect. Specifically, there is no mismatched perfusion defect to suggest pulmonary embolism. There is no central air trapping to suggest emphysema. IMPRESSION: Lung ventilation and perfusion scan negative for pulmonary embolism
[2018-07-25] MEDS: APRESOLINE IV PRN (16:00)
[2018-07-25] MEDS ORDERED: VANCOMYCIN 1,750 MG in NACL 0.9% 500 ML 500 ML IV ONE (16:00)
[2018-07-25] MEDS ORDERED: ATIVAN IV ONE (16:09)
[2018-07-25] MEDS ORDERED: LOPRESSOR PO ONE (16:09)
[2018-07-25] MEDS: ZOFRAN IV PRN ×2 (16:10→22:01)
[2018-07-25] MEDS ORDERED: CATAPRES PO ONE (16:10)
[2018-07-25] MEDS ORDERED: ATIVAN ONE (16:15)
[2018-07-25] MEDS ORDERED: CATAPRES ONE ×2 (16:49)
[2018-07-25] MEDS ORDERED: HEPARIN/ 0.45% NACL-25,000 UNIT/500 ML 25,000 UNIT/500 ML BAG ONE (16:54)
[2018-07-25] MEDS ORDERED: HEPARIN 10,000 UNITS/10 ML ONE (16:54)
[2018-07-25] MEDS: HEPARIN/ 0.45% NACL-25,000 UNIT/500 ML 25,000 UNIT/500 ML BAG IV SCH (16:55)
[2018-07-25 18:01] LABS: Hematocrit 34.3 % (35.5-45.6); Hemoglobin 10.9 gm/dl (11.8-15.2)
[2018-07-25] MEDS ORDERED: HumaLOG SUB-Q PRN (18:09)
[2018-07-25 18:12] LABS: INR 1.25 (0.87-1.13)
--- NOTE | 2018-07-25 18:20 | XRay Report ---
FINAL REPORT EXAM: XR ABDOMEN 1V AP HISTORY: N/V, hx gastroporesis TECHNIQUE: One view of the abdomen PRIORS: AP CT 01/24/2018 FINDINGS: Pneumoperitoneum: None visible. Visceromegaly: None visible. Mass: Non visible. Abnormal calcification: None. Intestinal distention: None visible. Intestinal obstructive pattern: None visible. Stool volume: Within normal limits. IMPRESSION: Nonspecific bowel gas pattern without intestinal distention.
[2018-07-25 18:38] LABS: Partial Thromboplastin Time 98.7 Sec. (24.2-36.6)
[2018-07-25] MEDS: COREG PO SCH (21:32)
[2018-07-25] MEDS ORDERED: NON-FORMULARY (Clonidine Hcl [Catapres] 0.3 MG) PO SCH (22:00)
[2018-07-25] MEDS ORDERED: CATAPRES PO SCH (22:00)
[2018-07-25] MEDS: LANTUS SUB-Q SCH (22:01)
[2018-07-25] MEDS: MORPHINE IV PRN (22:01)
[2018-07-25] MEDS: SODIUM CHLORIDE FLUSH SYRINGE 10 ML IV SCH (22:02)
[2018-07-26] MEDS: MORPHINE IV PRN ×3 (04:30→15:25)
[2018-07-26] MEDS: APRESOLINE IV PRN ×2 (05:57→22:22)
--- NOTE | 2018-07-26 09:50 | Progress Note ---
Subjective Interval history: Patient was seen today for follow-up of multiple renal related issues Has intermittent chest pain Mild shortness of breath Still nauseated Events of 24 hours vitals labs intake output medications were reviewed Past medical history: Reviewed Family history: Reviewed Social history: Reviewed Allergies: Reviewed Physical examination: Vitals: Reviewed HEENT: No pallor or icterus oral mucosa moist Neck: Supple no JVD no thyromegaly Chest: Bilateral clear to auscultation anteriorly Heart: Regular rate and rhythm S1-S2 heard no S3-S4 Abdomen: Soft nontender no voluntary guarding rigidity rebound Extremity: Dry skin less than 1+ peripheral edema Psychiatric: No evidence of agitation and aggression noted Dermatology: No petechial rashes Labs and x-rays: Reviewed from today Assessment and plan ESRD: Patient is currently on hemodialysis and will need to receive treatment during this hospital stay at least 3 times a week as long as he is stable from cardiac standpoint Chest pain, uncontrolled hypertension status post cardiology evaluation ventilation perfusion scan reports were reviewed which is negative for pulmonary embolism Abnormal troponin by far much higher, for dialysis patient patient does need further cardiac evaluation, may need cardiac catheterization depending We will consider dialysis only after cardiac evaluation is completed and if patient is felt to be stable he would like to know that from cardiology Anemia in end-stage renal disease current hemoglobin around 10.9 History of severe gastroparesis, diabetes mellitus with end organ damage Lactic acidosis: Normalized Some evidence of fluid overload: Hemodialysis ultrafiltration Uncontrolled hypertension with tachycardia; partly due to chest pain Will place the patient on clonidine patch to improve absorption, which could be very erratic from oral clonidine If his blood pressure remains elevated he may need to be transferred to ICU for Cardene drip Patient was adequately counseled and educated regarding all the renal related issues Laboratory studies, pertinent for discussed with patient All questions were answered and simple Hungarian We'll continue to follow and make recommendation for renal standpoint Objective - Vital Signs Vital signs: Vital Signs - 12hr 07/25/18 07/26/18 07/26/18 23:17 00:48 01:46 Temperature 98.6 F Pulse Rate 96 H 84 Respiratory 20 Rate Blood Pressure 144/85 Blood Pressure 164/96 [Left] O2 Sat by Pulse 97 90 99 Oximetry 07/26/18 07/26/18 07/26/18 05:35 06:00 08:39 Temperature 97.6 F 98.1 F Pulse Rate 116 H 110 H 111 H Respiratory 18 20 Rate Blood Pressure 205/100 Blood Pressure 185/108 [Left] O2 Sat by Pulse 99 98 Oximetry - Lab 07/27/18 05:57 07/26/18 17:23 Most recent lab results Calcium 8.5 mg/dL (8.4-10.2) 07/25/18 13:13
--- NOTE | 2018-07-26 09:56 | Consultation ---
History of Present Illness Consult date: 07/26/18 Consult reason: abnormal cardiac enzymes History of present illness: Impression Ongoing constant chest pain, ? cardiac, seems more pleuritic Elevated troponin, nonischemic trend Prior cardiac cath apparently had CAD treated medically Uncontrolled HTN, improving Lactic Acidosis ESRD, noncompliance Diabetes with end organ damage Elevated d-dimer, normal perfusion study Plan Cont IV heparin x 48hrs Recommend diagnostic cardiac cath once BP stabilized HD tomorow , cath on Tuesday. Will need premeds for IV contrast allergy Past History Past Medical History: acute DE, diabetes, ESRD, hypertension, migraines, stroke Past Surgical History: Other ( left eye surgery, right toe amputation, right chest vas cath. GRAFT RIGHT UPPER ARM. Graft revision 06/2018 per pt) Social history: , lives with family. denies: smoking, alcohol abuse, prescription drug abuse Family history: diabetes, hypertension Medications and Allergies Allergies Allergy/AdvReac Type Severity Reaction Status Date / Time cefazolin [From [facility]] Allergy Vomiting Verified 07/21/18 13:02 shellfish derived Allergy Anaphylaxis Verified 06/08/18 15:09 iodine AdvReac Severe Vomiting Verified 06/08/18 15:09 IV dye AdvReac Severe Vomiting Uncoded 04/28/18 08:49 Home Medications Medication Instructions Recorded Confirmed Last Taken Type Insulin Glargine [Lantus VIAL] 30 units SQ QHS #1 mo 02/05/18 07/25/18 07/20/18 Rx 30units Insulin Aspart [NovoLOG Flexpen] 4 units SQ AC PRN 03/03/18 07/25/18 07/20/18 History 4units Clonidine HCl [Catapres] 0.3 mg PO BID 04/14/18 07/25/18 07/20/18 History 0.3mg Potassium Chloride [K-Dur] 20 meq PO QDAY #7 tablet 05/09/18 07/25/18 07/20/18 Rx 20meq Active Meds: Active Medications Acetaminophen (Tylenol) 650 mg PO Q4H PRN PRN Reason: Pain MILD(1-3)/Fever >100.5/SOARES Carvedilol (Coreg) 6.25 mg PO BID [facility] Last Admin: 07/25/18 21:32 Dose: 6.25 mg Clonidine HCl (Catapres-Tts Patch) 0.3 mg TD QWEEK [facility] Hydralazine HCl (Apresoline) 10 mg IV Q6HR PRN PRN Reason: Hypertension Last Admin: 07/26/18 05:57 Dose: 10 mg Heparin Sodium/Sodium Chloride (Heparin/ 0.45% Nacl-25,000 Unit/500 Ml) 25,000 unit in 500 mls @ 27 mls/hr IV TITR [facility]; Protocol Last Titration: 07/26/18 01:09 Dose: 1,350 units/hr, 27 mls/hr Insulin Glargine (Lantus) 30 units SUB-Q QHS [facility] Last Admin: 07/25/18 22:01 Dose: 30 units Insulin Human Lispro (Humalog) 4 unit SUB-Q AC PRN PRN Reason: HYPOGLYCEMIA Morphine Sulfate (Morphine) 2 mg IV Q4H PRN PRN Reason: Pain, Moderate (4-6) Last Admin: 07/26/18 04:30 Dose: 2 mg Ondansetron HCl (Zofran) 4 mg IV Q8H PRN PRN Reason: Nausea And Vomiting Last Admin: 07/25/18 22:01 Dose: 4 mg Potassium Chloride (K-Dur) 20 meq PO QDAY [facility] Sodium Chloride (Sodium Chloride Flush Syringe 10 Ml) 10 ml IV BID [facility] Last Admin: 07/25/18 22:02 Dose: 10 ml Sodium Chloride (Sodium Chloride Flush Syringe 10 Ml) 10 ml IV PRN PRN PRN Reason: LINE FLUSH Sodium Chloride (Sodium Chloride Flush Syringe 10 Ml) 10 ml IV PRN PRN PRN Reason: LINE FLUSH Physical Examination Vital Signs Pulse Resp 101 H 20 07/25/18 12:10 07/25/18 12:10 General appearance: no acute distress HEENT: Positive: PERRL Neck: Positive: neck supple Cardiac: Positive: Reg Rate and Rhythm, S1/S2. Negative: S3 Lungs: Positive: Normal Exam Neuro: Positive: Grossly Intact Abdomen: Positive: Unremarkable Extremities: Present: normal Results 07/25/18 17:28 07/25/18 13:13 Cardiac Enzymes 07/25/18 Range/Units 13:13 AST 20 (5-40) units/L CK-MB (CK-2) 10.2 H (0.0-4.0) ng/mL Coagulation 07/25/18 07/25/18 Range/Units 13:13 17:42 PT 13.7 16.4 H (12.2-14.9) Sec. INR 1.00 1.25 H (0.87-1.13) APTT 25.7 98.7 H* (24.2-36.6) Sec. Lipids 07/25/18 Range/Units 13:13 Triglycerides 260 H (2-149) mg/dL Cholesterol 181 (50-199) mg/dL HDL Cholesterol 37 L (40-59) mg/dL Cholesterol/HDL Ratio 4.89 % CBC 07/25/18 07/25/18 Range/Units 13:13 17:28 WBC 14.8 H (4.5-11.0) K/mm3 RBC 4.16 (3.65-5.03) M/mm3 Hgb 12.2 10.9 L (11.8-15.2) gm/dl Hct 37.1 34.3 L (35.5-45.6) % Plt Count 136 L 137 L (140-440) K/mm3 Lymph # 1.2 (1.2-5.4) K/mm3 [place] # 0.7 (0.0-0.8) K/mm3 Eos # 0.1 (0.0-0.4) K/mm3 Baso # 0.1 (0.0-0.1) K/mm3 Comprehensive Metabolic Panel 07/25/18 07/25/18 Range/Units 13:13 13:13 Sodium 138 (137-145) mmol/L Potassium 3.8 (3.6-5.0) mmol/L Chloride 94.3 L (98-107) mmol/L Carbon Dioxide 23 (22-30) mmol/L BUN 31 H (9-20) mg/dL Creatinine 8.3 H (0.8-1.5) mg/dL Glucose 225 H (75-100) mg/dL Calcium 8.5 (8.4-10.2) mg/dL Direct Bilirubin < 0.2 (0-0.2) mg/dL Indirect Bilirubin 0.2 mg/dL AST 20 (5-40) units/L ALT 16 (7-56) units/L Alkaline Phosphatase 91 (35-129) units/L Total Protein 8.2 (6.3-8.2) g/dL Albumin 4.3 (3.9-5) g/dL
[2018-07-26] MEDS: SODIUM CHLORIDE FLUSH SYRINGE 10 ML IV SCH ×2 (10:14→22:01)
[2018-07-26] MEDS: ZOFRAN IV PRN (10:14)
[2018-07-26] MEDS: COREG PO SCH ×2 (10:14→22:00)
[2018-07-26] MEDS: K-DUR PO SCH (10:15)
[2018-07-26] MEDS: CATAPRES-TTS PATCH TD SCH (12:32)
[2018-07-26] MEDS: HEPARIN/ 0.45% NACL-25,000 UNIT/500 ML 25,000 UNIT/500 ML BAG IV SCH (15:25)
[2018-07-26] MEDS ORDERED: ATIVAN PO PRN (15:47)
--- NOTE | 2018-07-26 16:15 | Progress Note ---
Assessment and Plan Atypical chest pain, ? 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 - cont insulin with long acting and SSI Severe gastroparesis - start on reglan iv - if no improvement will consult GI Elevated d-dimer, normal perfusion study - supplemental O2 as needed Subjective Date of service: 07/26/18 Interval history: Patient seen and examined c/o nausea and vomiting c/o epigastric and chest pain Objective - Constitutional Vitals: Vital Signs - 12hr 07/26/18 07/26/18 07/26/18 05:35 06:00 08:39 Temperature 97.6 F 98.1 F Pulse Rate 116 H 110 H 111 H Respiratory 18 20 Rate Blood Pressure 205/100 Blood Pressure 185/108 [Left] O2 Sat by Pulse 99 98 Oximetry 07/26/18 07/26/18 07/26/18 11:14 12:18 15:50 Temperature 98.0 F 98.0 F Pulse Rate 106 H 105 H 106 H Respiratory 20 20 Rate Blood Pressure 148/86 156/85 Blood Pressure [Left] O2 Sat by Pulse 91 95 Oximetry General appearance: Present: no acute distress, obese - EENT Eyes: PERRL, EOM intact ENT: hearing intact, clear oral mucosa Ears: bilateral: normal - Neck Neck: supple, normal ROM - Respiratory Respiratory effort: normal Respiratory: bilateral: CTA - Cardiovascular Rhythm: regular Heart Sounds: Present: S1 & S2. Absent: gallop, rub Extremities: pulses intact, No edema, normal color, Full ROM - Gastrointestinal General gastrointestinal: Present: soft, non-tender, non-distended, normal bowel sounds - Integumentary Integumentary: clear, warm, dry - Musculoskeletal Musculoskeletal: 1, strength equal bilaterally - Neurologic Neurologic: moves all extremities - Psychiatric Psychiatric: memory intact, appropriate mood/affect, intact judgment & insight - Labs CBC & Chem 7: 07/27/18 05:57 07/26/18 17:23 Labs: Abnormal lab results 07/25/18 07/25/18 07/25/18 Range/Units 17:28 17:28 17:28 Hgb 10.9 L (11.8-15.2) gm/dl Hct 34.3 L (35.5-45.6) % Plt Count 137 L (140-440) K/mm3 PT (12.2-14.9) Sec. INR (0.87-1.13) APTT (24.2-36.6) Sec. POC Glucose (70-105) Lactic Acid 3.10 H* (0.7-2.0) mmol/L Troponin T 0.338 H* (0.00-0.029) ng/mL 07/25/18 07/25/18 07/26/18 Range/Units 17:42 22:00 06:54 Hgb (11.8-15.2) gm/dl Hct (35.5-45.6) % Plt Count (140-440) K/mm3 PT 16.4 H (12.2-14.9) Sec. INR 1.25 H (0.87-1.13) APTT 98.7 H* (24.2-36.6) Sec. POC Glucose 235 H 202 H (70-105) Lactic Acid (0.7-2.0) mmol/L Troponin T (0.00-0.029) ng/mL - Imaging and cardiology Chest x-ray: report reviewed
[2018-07-26 17:58] LABS: Hematocrit 35.9 % (35.5-45.6); Hemoglobin 11.4 gm/dl (11.8-15.2); Mean Corpuscular HGB Conc 32 % (32-34); Mean Corpuscular Hemoglobin 29 pg (28-32); Mean Corpuscular Volume 90 fl (84-94); Platelet Count 162 K/mm3 (140-440); Red Blood Count 3.99 M/mm3 (3.65-5.03); Red Cell Distribution Width 17.2 % (13.2-15.2)
[2018-07-26 18:18] LABS: Calcium 8.6 mg/dL (8.4-10.2)
[2018-07-26] MEDS: LANTUS SUB-Q SCH (22:00)
[2018-07-26] MEDS: REGLAN IV PRN (22:22)
[2018-07-27] MEDS: HEPARIN/ 0.45% NACL-25,000 UNIT/500 ML 25,000 UNIT/500 ML BAG IV SCH ×2 (03:39→18:33)
[2018-07-27] MEDS: REGLAN IV PRN ×2 (03:41→11:59)
[2018-07-27] MEDS: MORPHINE IV PRN ×2 (03:41→22:21)
[2018-07-27 06:51] LABS: Hematocrit 37.9 % (35.5-45.6); Hemoglobin 11.8 gm/dl (11.8-15.2)
--- NOTE | 2018-07-27 09:19 | Progress Note ---
Subjective Interval history: Patient was seen today for follow-up on multiple renal related issues Events of this hospitalization noted Pending cardiac catheterization still tachycardic and hypertensive Patient denies having any chest pain pressure or shortness of breath Vitals labs intake output medications were reviewed Social history: Reviewed Allergies: Reviewed Family history: Reviewed Physical examination HEENT: Oral mucosa moist no pallor or icterus Neck: Supple no JVD Chest: Clear to auscultation anteriorly CVS: Regular rate and rhythm S1 and S2 heard Abdomen: Soft nontender no suprapubic masses no organomegaly appreciable Extremity: Dry skin less than 1+ peripheral edema Musculoskeletal: No joint effusion noted in knees and ankle Neurological: Alert awake Dermatology: No petechial rashes Psychiatry: No evidence of any agitation and aggression noted Assessment and plan ESRD: We'll keep him on hemodialysis 3 times a week Patient was adequately counseled and educated Chest pain and abnormal troponin: Patient is high risk for cardiac events and currently catheterization is being planned Accelerated hypertension likely due to gastroparalysis, patient may have secondary hypertension Blood pressure is currently much better controlled with the current regimen of transdermal medications Patient does require cardiac catheterization which is being planned by cardiology, he will require hemodialysis post catheterization to remove the contrast load Patient still remains tachycardic, this is multifactorial in his case dose of beta carmen should be maximized, cardiology to comment Anemia in end-stage renal disease current hemoglobin satisfactory 11.8 no indication for erythropoietin Metabolic acidosis: To follow Patient was adequately counseled and educated regarding multiple renal related issues Pertinent lab findings were discussed with patient, patient does exhibit good understanding of renal issues We'll continue to follow and make recommendation from renal standpoint ESRD: Patient is currently on hemodialysis and will need to receive treatment during this hospital stay at least 3 times a week as long as he is stable from cardiac standpoint Chest pain, uncontrolled hypertension status post cardiology evaluation ventilation perfusion scan reports were reviewed which is negative for pulmonary embolism Abnormal troponin by far much higher, for dialysis patient patient does need further cardiac evaluation, may need cardiac catheterization depending We will consider dialysis only after cardiac evaluation is completed and if patient is felt to be stable he would like to know that from cardiology Anemia in end-stage renal disease current hemoglobin around 10.9 History of severe gastroparesis, diabetes mellitus with end organ damage Lactic acidosis: Normalized Some evidence of fluid overload: Hemodialysis ultrafiltration Uncontrolled hypertension with tachycardia; partly due to chest pain Will place the patient on clonidine patch to improve absorption, which could be very erratic from oral clonidine If his blood pressure remains elevated he may need to be transferred to ICU for Cardene drip Objective - Vital Signs Vital signs: Vital Signs - 12hr 07/26/18 07/26/18 07/26/18 21:30 22:00 22:22 Temperature Pulse Rate 109 H Pulse Rate [ 110 H Left Radial] Respiratory Rate Blood Pressure 199/102 O2 Sat by Pulse 95 Oximetry 07/26/18 07/27/18 07/27/18 23:54 05:39 08:39 Temperature 99.2 F 98.7 F Pulse Rate 122 H 118 H 115 H Pulse Rate [ Left Radial] Respiratory 18 18 Rate Blood Pressure 185/96 177/88 O2 Sat by Pulse 97 99 Oximetry 07/27/18 08:43 Temperature Pulse Rate Pulse Rate [ 115 H Left Radial] Respiratory Rate Blood Pressure O2 Sat by Pulse 98 Oximetry - Lab 07/27/18 05:57 07/26/18 17:23 Most recent lab results Calcium 8.6 mg/dL (8.4-10.2) 07/26/18 17:23
[2018-07-27] MEDS ORDERED: COREG PO SCH (10:30)
[2018-07-27] MEDS ORDERED: NACL 0.9% 100 ML IV PRN (10:40)
--- NOTE | 2018-07-27 10:40 | Progress Note ---
Assessment and Plan Severe gastroparesis End-stage renal disease on hemodialysis Hypertension Diabetes Chronic elevated troponin cardiac cath 2 years ago that demonstrated normal coronary arteries. left ventricle systolic function was normal with ejection fraction 55% on most recent echocardiogram 9 months ago. Optimize blood pressure management. Subjective Date of service: 07/27/18 Interval history: Patient reports continued nausea, vomiting followed with chest pain this morning. Objective Vital Signs Temp Pulse Pulse Resp BP Pulse Ox 07/27/18 08:43 115 H 98 07/27/18 08:39 115 H 07/27/18 05:39 98.7 F 118 H 18 177/88 99 07/26/18 23:54 99.2 F 122 H 18 185/96 97 07/26/18 22:22 109 H 199/102 07/26/18 22:00 110 H 07/26/18 21:30 95 07/26/18 21:00 115 H 07/26/18 19:51 98.9 F 109 H 18 199/102 95 07/26/18 15:50 98.0 F 106 H 20 156/85 95 07/26/18 12:18 98.0 F 105 H 20 148/86 91 07/26/18 11:14 106 H - Physical Examination General: No Apparent Distress HEENT: Positive: PERRL Cardiac: Positive: Tachycardia Neuro: Positive: Grossly Intact Abdomen: Positive: Unremarkable Extremities: Present: normal - Labs and Meds CBC 07/26/18 07/27/18 Range/Units 17:23 05:57 WBC 14.4 H (4.5-11.0) K/mm3 RBC 3.99 (3.65-5.03) M/mm3 Hgb 11.4 L 11.8 (11.8-15.2) gm/dl Hct 35.9 37.9 (35.5-45.6) % Plt Count 162 132 L (140-440) K/mm3 Comprehensive Metabolic Panel 07/26/18 Range/Units 17:23 Sodium 144 (137-145) mmol/L Potassium 4.1 (3.6-5.0) mmol/L Chloride 96.3 L (98-107) mmol/L Carbon Dioxide 18 L (22-30) mmol/L BUN 46 H (9-20) mg/dL Creatinine 9.9 H (0.8-1.5) mg/dL Glucose 197 H (75-100) mg/dL Calcium 8.6 (8.4-10.2) mg/dL
[2018-07-27] MEDS: K-DUR PO SCH ×2 (11:02→18:41)
[2018-07-27] MEDS: APRESOLINE IV PRN (12:00)
[2018-07-27] MEDS: PROTONIX IV SCH ×2 (14:00→18:41)
[2018-07-27] MEDS: REGLAN IV SCH ×3 (14:00→20:44)
[2018-07-27] MEDS: CARAFATE PO SCH ×3 (14:00→21:14)
[2018-07-27] MEDS: HumuLIN R SUB-Q SCH ×2 (18:18→21:12)
[2018-07-27] MEDS ORDERED: NACL 0.9 (PRIMING MACHINE ONLY DIALYSIS) MC ONE (18:20)
[2018-07-27] MEDS: LANTUS SUB-Q SCH (21:11)
[2018-07-27] MEDS: COREG PO SCH (21:13)
[2018-07-27] MEDS: SODIUM CHLORIDE FLUSH SYRINGE 10 ML IV SCH (21:14)
[2018-07-27] MEDS: ZOFRAN IV PRN (22:21)
[2018-07-28] MEDS ORDERED: HEPARIN 10,000 UNITS/10 ML IV ONE ×2 (00:45→01:04)
[2018-07-28] MEDS: APRESOLINE IV PRN ×3 (00:48→21:21)
[2018-07-28] MEDS: REGLAN IV SCH ×3 (01:10→14:00)
[2018-07-28] MEDS: CATAPRES-TTS PATCH TD SCH (05:46)
--- NOTE | 2018-07-28 09:35 | Progress Note ---
Assessment and Plan Atypical chest pain, ? 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 Absent: gallop, rub Extremities: pulses intact, No edema, normal color, Full ROM - Gastrointestinal General gastrointestinal: Present: soft, non-tender, non-distended, normal bowel sounds - Integumentary Integumentary: clear, warm, dry - Musculoskeletal Musculoskeletal: 1, strength equal bilaterally - Neurologic Neurologic: moves all extremities - Psychiatric Psychiatric: memory intact, appropriate mood/affect, intact judgment & insight Subjective Date of service: 07/27/18 Interval history: Patient seen and examined c/o nausea and vomiting but tolerating food better Improved epigastric and chest pain getting HD today Objective - Constitutional Vitals: Vital Signs - 12hr 07/28/18 07/28/18 07/28/18 00:22 00:48 04:45 Temperature 98.0 F 98.0 F Pulse Rate 109 H 109 H 115 H Respiratory 18 18 Rate Blood Pressure 192/103 Blood Pressure 193/123 189/107 [Left] O2 Sat by Pulse 95 95 Oximetry 07/28/18 07/28/18 05:46 08:34 Temperature 99.8 F H Pulse Rate 122 H Respiratory 18 Rate Blood Pressure 187/103 176/93 Blood Pressure [Left] O2 Sat by Pulse 98 Oximetry - Labs CBC & Chem 7: 07/27/18 05:57 07/26/18 17:23 Labs: Abnormal lab results 07/27/18 07/27/18 07/27/18 Range/Units 11:42 18:16 20:46 Heparin Anti-Xa Level (0.3-0.7) U.I./ml POC Glucose 344 H 173 H 293 H (70-105) 07/27/18 07/28/18 07/28/18 Range/Units 21:15 06:12 06:54 Heparin Anti-Xa Level < 0.10 L 1.13 H (0.3-0.7) U.I./ml POC Glucose 229 H (70-105)
[2018-07-28] MEDS: K-DUR PO SCH (11:15)
[2018-07-28] MEDS: CARAFATE PO SCH ×4 (11:15→21:21)
[2018-07-28] MEDS: PROTONIX IV SCH (11:16)
[2018-07-28] MEDS: COREG PO SCH ×2 (11:16→21:23)
--- NOTE | 2018-07-28 11:17 | Progress Note ---
Subjective Interval history: Patient was seen today for follow-up on multiple renal related issues Events of this hospitalization noted Pending cardiac catheterization still tachycardic and hypertensive Patient denies having any chest pain pressure or shortness of breath Vitals labs intake output medications were reviewed Social history: Reviewed Allergies: Reviewed Family history: Reviewed Physical examination HEENT: Oral mucosa moist no pallor or icterus Neck: Supple no JVD Chest: Clear to auscultation anteriorly CVS: Regular rate and rhythm S1 and S2 heard Abdomen: Soft nontender no suprapubic masses no organomegaly appreciable Extremity: Dry skin less than 1+ peripheral edema Musculoskeletal: No joint effusion noted in knees and ankle Neurological: Alert awake Dermatology: No petechial rashes Psychiatry: No evidence of any agitation and aggression noted Assessment and plan ESRD: Continue with hemodialysis on Tuesday schedule while here accelerated hypertension: Difficult to control patient does have history of severe gastroparesis which may affect and give erratic control of blood pressure Secondary hyperparathyroidism: Check phosphorus and PTH level periodically History of diabetes with severe gastroparalysis off and on has required hospitalization in the past as well Admitted with uncontrolled hypertension chest pain fluid overload shortness of breath Blood pressure is relatively better control but patient still remains tachycardic: Cardiology to comment, Anemia in end-stage renal disease current hemoglobin is satisfactory 11.2 Uncontrolled hypertension, chest pain, abnormal troponin: Requiring cardiac catheterization this admission Will place the patient on clonidine patch to improve absorption, which could be very erratic from oral clonidine If his blood pressure remains elevated he may need to be transferred to ICU for Cardene drip Objective - Vital Signs Vital signs: Vital Signs - 12hr 07/28/18 07/28/18 07/28/18 00:22 00:48 04:45 Temperature 98.0 F 98.0 F Pulse Rate 109 H 109 H 115 H Respiratory 18 18 Rate Blood Pressure 192/103 Blood Pressure 193/123 189/107 [Left] O2 Sat by Pulse 95 95 Oximetry 07/28/18 07/28/18 05:46 08:34 Temperature 99.8 F H Pulse Rate 122 H Respiratory 18 Rate Blood Pressure 187/103 176/93 Blood Pressure [Left] O2 Sat by Pulse 98 Oximetry - Lab 07/27/18 05:57 07/26/18 17:23 Most recent lab results Calcium 8.6 mg/dL (8.4-10.2) 07/26/18 17:23
--- NOTE | 2018-07-28 11:42 | Progress Note ---
Assessment and Plan Severe gastroparesis End-stage renal disease on hemodialysis Hypertension - resistant and chronically uncontrolled Diabetes Chronic elevated troponin cardiac cath 2 years ago that demonstrated normal coronary arteries. left ventricle systolic function was normal with ejection fraction 55% on most recent echocardiogram 9 months ago. Recommendations: Continue clonidine patch Severe gastroparesis limiting absorption and bioavailablity of po anti- hypertensive meds No further cardiac work-up Discontinue IV heparin Subjective Date of service: 07/28/18 Principal diagnosis: Chest Pain Interval history: Patient with severe gastroparesis and constant vomiting of greenish secretions Objective Vital Signs Temp Pulse Resp BP BP Pulse Ox 07/28/18 08:34 99.8 F H 122 H 18 176/93 98 07/28/18 05:46 187/103 07/28/18 04:45 98.0 F 115 H 18 189/107 95 07/28/18 00:48 109 H 192/103 07/28/18 00:22 98.0 F 109 H 18 193/123 95 07/27/18 19:25 121 H 18 187/95 97 07/27/18 18:00 98.4 F 119 H 18 186/100 07/27/18 17:50 118 H 167/99 07/27/18 17:30 124 H 128/72 07/27/18 17:15 121 H 131/86 07/27/18 17:00 122 H 166/103 07/27/18 16:45 119 H 168/95 07/27/18 16:30 121 H 164/99 07/27/18 16:15 119 H 175/105 07/27/18 16:00 124 H 179/99 07/27/18 15:45 126 H 184/102 07/27/18 15:30 117 H 186/103 07/27/18 15:15 117 H 196/112 07/27/18 15:00 98.4 F 119 H 18 208/117 07/27/18 11:40 98.4 F 108 H 18 210/111 96 - Physical Examination General: No Apparent Distress HEENT: Positive: PERRL Neck: Positive: neck supple Cardiac: Positive: Tachycardia Lungs: Positive: Normal Exam Neuro: Positive: Grossly Intact Abdomen: Positive: Unremarkable Extremities: Present: normal
[2018-07-28] MEDS: HumuLIN R SUB-Q SCH ×3 (12:35→21:41)
[2018-07-28] MEDS: COZAAR PO SCH (17:29)
--- NOTE | 2018-07-28 18:10 | Progress Note ---
Assessment and Plan Atypical chest pain, likely from gastroparesis - plan for outpt work up - cardiology consulted, preserved EF on 2d echo result - cardiac cath 2 years ago that demonstrated normal coronary arteries. 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 Absent: gallop, rub Extremities: pulses intact, No edema, normal color, Full ROM - Gastrointestinal General gastrointestinal: Present: soft, non-tender, non-distended, normal bowel sounds - Integumentary Integumentary: clear, warm, dry - Musculoskeletal Musculoskeletal: 1, strength equal bilaterally - Neurologic Neurologic: moves all extremities - Psychiatric Psychiatric: memory intact, appropriate mood/affect, intact judgment & insight Subjective Date of service: 08/04/18 Principal diagnosis: Chest Pain Interval history: Patient seen and examined Nausea and vomiting much improved but poor food intake Improved epigastric and chest pain plan for Hd tomorrow Objective - Constitutional Vitals: Vital Signs - 12hr 07/28/18 07/28/18 08:34 11:26 Temperature 99.8 F H 99.6 F Pulse Rate 122 H 124 H Respiratory 18 16 Rate Blood Pressure 176/93 182/106 O2 Sat by Pulse 98 98 Oximetry - Labs CBC & Chem 7: 07/29/18 05:00 07/26/18 17:23 Labs: Abnormal lab results 07/27/18 07/27/18 07/27/18 Range/Units 18:16 20:46 21:15 Heparin Anti-Xa Level < 0.10 L (0.3-0.7) U.I./ml POC Glucose 173 H 293 H (70-105) 07/28/18 07/28/18 07/28/18 Range/Units 06:12 06:54 11:28 Heparin Anti-Xa Level 1.13 H (0.3-0.7) U.I./ml POC Glucose 229 H 294 H (70-105) 07/28/18 Range/Units 16:51 Heparin Anti-Xa Level (0.3-0.7) U.I./ml POC Glucose 276 H (70-105)
[2018-07-28] MEDS: HEPARIN SUB-Q SCH (21:21)
[2018-07-28] MEDS: REGLAN PO SCH (21:22)
[2018-07-28] MEDS: LANTUS SUB-Q SCH (21:23)
[2018-07-28] MEDS: SODIUM CHLORIDE FLUSH SYRINGE 10 ML IV SCH (21:24)
[2018-07-28] MEDS ORDERED: NACL 0.9% 100 ML IV PRN (23:03)
[2018-07-29 05:51] LABS: Hematocrit 35.7 % (35.5-45.6); Hemoglobin 11.5 gm/dl (11.8-15.2)
--- NOTE | 2018-07-29 07:37 | Progress Note ---
Assessment and Plan Impression: * End stage renal disease * N/V secondary to diabetic gastroparesis * Chest pain * Elevated troponin, chronic * Type I DM * Accelerated hypertension, now controlled * Anemia secondary to ESRD * Secondary hyperparathyroidism Plan: * Hemodialysis today, continue TTS schedule * UF as tolerated * Cardiology recommendations reviewed; no additional cardiac work up as patient w/ LHC 2 years ago that demonstrated normal coronary arteries w/ nml LVEF on TTE 9 months ago * Continue current antiHTN medicatons * Renal/ADA diet * Epogen TIW prn * Stable for d/c from a renal standpoint following dialysis today Subjective Date of service: 07/29/18 Principal diagnosis: Chest Pain Interval history: Patient reports N/V resolved. Feels well today - denies chest pain Objective - Vital Signs Vital signs: Vital Signs - 12hr 07/28/18 07/28/18 07/29/18 20:21 22:00 00:09 Temperature 99.1 F 98.7 F Pulse Rate 102 H 85 94 H Respiratory 18 20 Rate Blood Pressure 94/43 Blood Pressure 184/105 [Left] O2 Sat by Pulse 96 96 Oximetry 07/29/18 07/29/18 00:10 05:25 Temperature 98.9 F Pulse Rate 92 H 111 H Respiratory 20 Rate Blood Pressure Blood Pressure 112/64 [Left] O2 Sat by Pulse 95 98 Oximetry - General Appearance General appearance: well-developed, well-nourished EENT: ATNC Respiratory: Present: Clear to Ascultation Cardiology: regular, S1S2 Gastrointestinal: normal, no tenderness, no distended Integumentary: no rash Neurologic: alert and oriented x3 Musculoskeletal: other (no edema) Psychiatric: cooperative - Lab 07/29/18 05:00 07/26/18 17:23 Most recent lab results Calcium 8.6 mg/dL (8.4-10.2) 07/26/18 17:23
[2018-07-29] MEDS: COREG PO SCH (09:24)
[2018-07-29] MEDS: REGLAN PO SCH ×2 (09:24→11:23)
[2018-07-29] MEDS: HEPARIN SUB-Q SCH (09:25)
[2018-07-29] MEDS: HumuLIN R SUB-Q SCH ×2 (09:27→11:20)
[2018-07-29] MEDS: CARAFATE PO SCH ×2 (09:37→11:23)
--- NOTE | 2018-07-29 09:38 | Progress Note ---
Assessment and Plan Severe gastroparesis End-stage renal disease on hemodialysis Hypertension - resistant and chronically uncontrolled Diabetes Chronic elevated troponin cardiac cath 2 years ago that demonstrated normal coronary arteries. left ventricle systolic function was normal with ejection fraction 55% on most recent echocardiogram 9 months ago. Recommendations: Continue clonidine patch Severe gastroparesis limiting absorption and bioavailablity of po anti- hypertensive meds No further cardiac work-up Subjective Date of service: 07/29/18 Principal diagnosis: Chest Pain Interval history: Patient is doing well this morning. No cardiac complaints. No events on tele Objective Vital Signs Temp Pulse Resp BP BP Pulse Ox 07/29/18 08:02 98.5 F 93 H 18 125/83 98 07/29/18 05:25 98.9 F 111 H 20 112/64 98 07/29/18 00:10 92 H 95 07/29/18 00:09 98.7 F 94 H 20 94/43 96 07/28/18 22:00 85 07/28/18 20:21 99.1 F 102 H 18 184/105 96 07/28/18 19:21 184/105 07/28/18 16:53 98.3 F 104 H 16 157/106 97 07/28/18 11:26 99.6 F 124 H 16 182/106 98 07/28/18 10:00 112 H 20 98 - Physical Examination General: No Apparent Distress HEENT: Positive: PERRL Neck: Positive: neck supple Cardiac: Positive: Reg Rate and Rhythm Lungs: Positive: Normal Exam Neuro: Positive: Grossly Intact Abdomen: Positive: Unremarkable Extremities: Present: normal - Labs and Meds CBC 07/29/18 Range/Units 05:00 Hgb 11.5 L (11.8-15.2) gm/dl Hct 35.7 (35.5-45.6) % Plt Count 138 L (140-440) K/mm3
[2018-07-29] MEDS ORDERED: PROTONIX PO SCH (10:00)
[2018-07-29] MEDS: SODIUM CHLORIDE FLUSH SYRINGE 10 ML IV SCH (10:21)
[2018-07-29] MEDS: COZAAR PO SCH (10:22)
[2018-07-29] MEDS ORDERED: NACL 0.9 (PRIMING MACHINE ONLY DIALYSIS) MC ONE (12:53)
--- NOTE | 2018-07-29 13:28 | Discharge Summary ---
Providers - Providers Date of Admission: 07/25/18 14:52 Date of discharge: 07/29/18 Attending physician: JOCELIN HODGES 07/25/18 Consult to Cardiac Rehabilitation [CONS] Routine Reason For Exam: Phase I 07/25/18 14:23 Consult to Physician [CONS] Urgent Comment: CRISTINA NOTIFIED Consulting Provider: CLARK KAN Physician Instructions: Reason For Exam: ESRD on dialysis CTA today 07/25/18 15:20 Consult to Physician [CONS] Routine Comment: Consulting Provider: SUE SIMON Physician Instructions: Reason For Exam: chf Primary care physician: [facility] Hospitalization Condition: Stable Hospital course: Discharge diagnosis: Atypical chest pain, likely from gastroparesis - plan for outpt work up - cardiology consulted, preserved EF on 2d echo result - cardiac cath 2 years ago that demonstrated normal coronary arteries. 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 Absent: gallop, rub Extremities: pulses intact, No edema, normal color, Full ROM - Gastrointestinal General gastrointestinal: Present: soft, non-tender, non-distended, normal bowel sounds - Integumentary Integumentary: clear, warm, dry - Musculoskeletal Musculoskeletal: 1, strength equal bilaterally - Neurologic Neurologic: moves all extremities - Psychiatric Psychiatric: memory intact, appropriate mood/affect, intact judgment & insight Disposition: DC-01 TO HOME OR SELFCARE Time spent for discharge: 34 minutes Core Measure Documentation - Palliative Care Palliative Care/ Comfort Measures: Not Applicable - Core Measures Any of the following diagnoses?: none Exam - Constitutional Vitals: Temp Pulse Resp BP Pulse Ox 98.2 F 87 18 78/38 98 07/29/18 11:00 07/29/18 13:15 07/29/18 11:00 07/29/18 13:15 07/29/18 08:02 Plan Activity: advance as tolerated Weight Bearing Status: Weight Bear as Tolerated Diet: diabetic, renal Follow up with: PRIMARY CARE, [Primary Care Provider] - 3-5 Days Prescriptions: cloNIDine-TTS PATCH [Catapres-Tts Patch] 0.3 mg TD We #10 patch Metoclopramide [Reglan TAB] 10 mg PO ACHS #30 tablet Pantoprazole [Protonix TAB] 40 mg PO QDAY #30 tablet Sucralfate [Carafate] 1 gm PO ACHS 30 Days oral.liqd
[2018-07-29 15:32] VITALS: BP 128/59
== END 2018-07-29 16:20 | disposition home or self-care (01) | DRG 291 ==
LOC: ED 11:36 → 4A 14:52
PROVIDERS: ADMIT Internal Medicine; ATTEND Internal Medicine
PROC: 5A1D70Z Performance of Urinary Filtration, Intermittent, Less than 6 Hours Per Day (ICD-10-PCS; principal; 2018-07-27)
PROC: 5A1D70Z Performance of Urinary Filtration, Intermittent, Less than 6 Hours Per Day (ICD-10-PCS; 2018-07-29)
DX: I13.2 Hypertensive heart and chronic kidney disease with heart failure and with stage 5 chronic kidney disease, or end stage renal disease (principal); I50.23 Acute on chronic systolic (congestive) heart failure; N18.6 End stage renal disease; N25.81 Secondary hyperparathyroidism of renal origin; R65.10 Systemic inflammatory response syndrome (SIRS) of non-infectious origin without acute organ dysfunction; I24.9 Acute ischemic heart disease, unspecified; K31.84 Gastroparesis; I25.10 Atherosclerotic heart disease of native coronary artery without angina pectoris; E10.22 Type 1 diabetes mellitus with diabetic chronic kidney disease; E10.43 Type 1 diabetes mellitus with diabetic autonomic (poly)neuropathy; I42.9 Cardiomyopathy, unspecified; D63.1 Anemia in chronic kidney disease; G43.909 Migraine, unspecified, not intractable, without status migrainosus; Z89.421 Acquired absence of other right toe(s); Z91.19 Patient's noncompliance with other medical treatment and regimen; I25.2 Old myocardial infarction; Z86.73 Personal history of transient ischemic attack (TIA), and cerebral infarction without residual deficits; Z83.3 Family history of diabetes mellitus; Z82.49 Family history of ischemic heart disease and other diseases of the circulatory system; Z91.041 Radiographic dye allergy status; Z91.013 Allergy to seafood; Z79.4 Long term (current) use of insulin; Z79.899 Other long term (current) drug therapy; Z86.711 Personal history of pulmonary embolism
CPT/HCPCS: 36415; 71045; 74018; 78582; 80048; 80061; 80074; 82140; 82550; 82553; 82962; 83880; 84484; 85014; 85018; 85025; 85027; 85049; 85379; 85520; 85610; 85730; 87040; 93005; 93010; 93306; 96365; 96375; 99292; A9540; A9558; C9113; J0360; J1644; J1815; J2060; J2270; J2405; J2765; J3370; J7030; J7040; J7050

== ENCOUNTER 2019-01-05 14:02 | Emergency (ER) | payer OTHER, MEDICARE ==
[2019-01-05 14:14] VITALS: BP 159/95
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
== END 2019-01-05 16:09 | disposition home or self-care (01) ==
LOC: ED 14:02
DX: S86.812A Strain of other muscle(s) and tendon(s) at lower leg level, left leg, initial encounter (principal); S46.912A Strain of unspecified muscle, fascia and tendon at shoulder and upper arm level, left arm, initial encounter; I10 Essential (primary) hypertension; E11.9 Type 2 diabetes mellitus without complications; G43.909 Migraine, unspecified, not intractable, without status migrainosus; Z88.1 Allergy status to other antibiotic agents; Z91.013 Allergy to seafood; Z91.041 Radiographic dye allergy status; Z79.4 Long term (current) use of insulin; Z87.442 Personal history of urinary calculi; Z86.73 Personal history of transient ischemic attack (TIA), and cerebral infarction without residual deficits; Z89.421 Acquired absence of other right toe(s); V89.2XXA Person injured in unspecified motor-vehicle accident, traffic, initial encounter; Y93.89 Activity, other specified; Y92.488 Other paved roadways as the place of occurrence of the external cause; Y99.8 Other external cause status
CPT/HCPCS: 99282

== ENCOUNTER 2019-01-12 10:42 | Inpatient (IN) | payer OTHER, MEDICARE ==
[2019-01-12] MEDS ORDERED: ZOFRAN ONE ×3 (11:23→20:55)
--- NOTE | 2019-01-12 11:32 | Emergency Department Report ---
HPI - General Chief Complaint: Chest Pain Time Seen by Provider: 01/12/19 11:23 - HPI HPI: 38-year-old -[place] male presents to the emergency department with complaint of a 2 day history of chest pain, abdominal pain, nausea and vomiting. The chest pain is left-sided and is sharp in nature. He started having the nausea and vomiting prior to the upper abdominal pain. He has a past medical history of diabetes, end-stage renal disease with home dialysis 4 times per week, hypertension. He does not have a primary care physician but his nephr ologist is Dr. Méndez and he goes to [facility]. He has not taken anything for his symptoms prior to presentation. No recent travel or sick contacts at home. ED Past Medical Hx - Past Medical History Hx Hypertension: Yes (Coreg ) Hx CVA: Yes (TIA's) Hx Heart Attack/AMI: Yes (NSTEMI) Hx Diabetes: Yes Hx Renal Disease: Yes Hx Headaches / Migraines: Yes (Migraines) Hx Psychiatric Treatment: No Hx Asthma: No Additional medical history: gastroparesis, PE - Surgical History Additional Surgical History: left eye surgery, right toe amputation, right chest vas cath. GRAFT RIGHT UPPER ARM. Graft revision 06/2018 per pt - Social History Smoking Status: Never Smoker Substance Use Type: None - Medications Home Medications: Home Medications Medication Instructions Recorded Confirmed Last Taken Type Insulin Glargine [Lantus VIAL] 30 units SQ QHS #1 mo 02/05/18 01/12/19 09/21/18 Rx 15units Insulin Aspart [NovoLOG Flexpen] 0 units SQ AC PRN 03/03/18 01/12/19 09/22/18 History 2units Lisinopril [Zestril] 5 mg PO QDAY 01/12/19 01/12/19 Unknown History ED Review of Systems ROS: Stated complaint: CHEST PAIN Other details as noted in HPI Comment: All other systems reviewed and negative Constitutional: denies: chills, fever Eyes: denies: eye pain, vision change ENT: denies: ear pain, throat pain Respiratory: denies: cough, wheezing Cardiovascular: chest pain. denies: palpitations Gastrointestinal: abdominal pain, nausea, vomiting Genitourinary: denies: dysuria, discharge Musculoskeletal: denies: back pain, arthralgia Skin: denies: rash, lesions Neurological: denies: headache, weakness Physical Exam - Physical Exam Physical Exam: GENERAL: The patient is well-developed well-nourished. HEENT: Normocephalic. Atraumatic. Patient has moist mucous membranes. EYES: Extraocular motions are intact. Pupils are equal and reactive to light b ilaterally. NECK: Supple. Trachea is midline. CHEST/LUNGS: Clear to auscultation. There is no respiratory distress noted. Unable to reproduce chest pain to palpation. HEART/CARDIOVASCULAR: Regular. There is mild to moderate tachycardia. There is no obvious murmur. ABDOMEN: Abdomen is soft. Upper abdominal tenderness to palpation. Patient has normal bowel sounds. There is no abdominal distention. SKIN: Skin is warm and dry. NEURO: The patient is awake, alert, and oriented. The patient is cooperative. The patient has no focal neurologic deficits. The patient has normal speech. MUSCULOSKELETAL: There is no tenderness or deformity. There is no evidence of acute injury. ED Medical Decision Making - Lab Data Result diagrams: 01/12/19 11:42 01/12/19 11:42 - EKG Data -: EKG Interpreted by Me EKG shows normal: sinus rhythm, axis, intervals, QRS complexes, ST-T waves Rate: tachycardia (110 bpm) - EKG Data When compared to previous EKG there are: no significant change Interpretation: unchanged when compared t (07/25/16) - Radiology Data Radiology results: report reviewed, image reviewed interpreted by me: Chest x-ray does not show any pneumothorax, pleural effusion, pneumonia or obvious focal consolidation. Abdominal x-ray shows nonspecific nonobstructive bowel gas. CT ABDOMEN PELVIS WITHOUT CONTRAST: HISTORY: abdominal pain. COMPARISON: none. TECHNIQUE: Helical CT in 1.25mm intervals without IV contrast. Sagittal and coronal reconstructions. FINDINGS: Lung bases: Normal. Liver: Normal. Biliary system: Normal. Pancreas: Normal. Spleen: Normal. Kidneys/ureters/bladder: Normal. Adrenal glands: Normal. Aorta: Normal. Intestines: Normal. Appendix: Normal. Pelvic viscera: Normal. Ascites: None. Adenopathy: None. Musculoskeletal: Normal. A penile pump is partially imaged. IMPRESSION: Unremarkable CT scan of the abdomen and pelvis without contrast. Transcribed By: TTR Dictated By: STEFANIA TOLBERT JR, MD Electronically Authenticated By: STEFANIA TOLBERT JR, MD Signed Date/Time: 01/12/19 1453 LUNG SCAN, VENTILATION AND PERFUSION: History: Short of breath. Technique: 5mci of Tc99m MAA was infused for the perfusion images. 15mci XE 133 gas was inhaled for the ventilatory images. Correlation is made with a chest x-ray dated 01/12/19. Findings: Inhalation of Xenon gas demonstrates a normal distribution of the activity throughout both lungs. The wash out phases show no focal retention of activity. After injection of Technetium 99m macroaggregated albumin gamma camera imaging of the lungs in multiple projections demonstrates normal pulmonary contours with a homogeneous distribution of activity. No focal areas of perfusion deficiency are identified. IMPRESSION: Low probability for pulmonary embolus. Transcribed By: TTR Dictated By: STEFANIA TOLBERT JR, MD Electronically Authenticated By: STEFANIA TOLBERT JR, MD Signed Date/Time: 01/12/19 1453 - Medical Decision Making Patient presents to the emergency department with a complaint of chest pain, upper abdominal pain, nausea or vomiting. EKG did not show any signs of ST elevation IA and is unchanged from previous. Patient does have first elevated troponin but he is also end-stage renal disease and it is trending downward. Chest x-ray does not show any pleural effusions, pneumonia, focal consolidation or any other acute process. Abdominal x-ray shows nonspecific nonobstructive bowel gas. CT of the abdomen and pelvis without contrast does not show any acut e process. Ventilation perfusion scan is low probability for a pulmonary embolism. The patient will be admitted to hospital for further evaluation of his chest and abdominal pain and has been accepted for admission by the hospitalist, Dr. Patel. - Differential Diagnosis IA, PE, pancreatitis, cholelithiasis, gastritis Critical Care Time: No Critical care attestation.: If time is entered above; I have spent that time in minutes in the direct care of this critically ill patient, excluding procedure time. ED Disposition Clinical Impression: Acute chest pain, Gastroparesis, ESRD (end stage renal disease) on dialysis Disposition: OP ADMIT IP TO THIS HOSP Is pt being admited?: Yes Condition: Fair Instructions: Chest Pain (ED) Referrals: DANE GONZALEZ MD [Primary Care Provider] - 3-5 Days Time of Disposition: 18:06
[2019-01-12 12:05] LABS: INR 1.11 (0.87-1.13); Partial Thromboplastin Time 25.1 Sec. (24.2-36.6)
[2019-01-12] MEDS ORDERED: MORPHINE ONE (12:07)
[2019-01-12] MEDS ORDERED: ZOFRAN IV ONE ×2 (12:19→14:52)
[2019-01-12] MEDS ORDERED: MORPHINE IV ONE (12:19)
[2019-01-12 12:20] LABS: Albumin 4.4 g/dL (3.9-5); Calcium 9.1 mg/dL (8.4-10.2)
[2019-01-12 12:22] LABS: Basophils % (Auto) 0.5 % (0.0-1.8); Eosinophils % (Auto) 0.2 % (0.0-4.3); Hematocrit 30.3 % (35.5-45.6); Lymphocytes # (Auto) 1.3 K/mm3 (1.2-5.4); Mean Corpuscular HGB Conc 33 % (32-34); Mean Corpuscular Volume 89 fl (84-94); Monocytes # (Auto) 0.4 K/mm3 (0.0-0.8); Platelet Count 156 K/mm3 (140-440); Red Blood Count 3.41 M/mm3 (3.65-5.03); Red Cell Distribution Width 14.9 % (13.2-15.2)
--- NOTE | 2019-01-12 12:24 | XRay Report ---
ABDOMINAL SERIES: History: Abdominal pain. Erect chest film shows no acute or significant changes involving the heart or lung null. There is no evidence of free air beneath the diaphragms. The gas pattern within the abdomen is unremarkable. There is no evidence of bowel dilatation, significant air-fluid levels, or masses. Organ shadows are unremarkable. IMPRESSION: Abdominal series within normal limits.
[2019-01-12 12:35] LABS: Chol/HDL Ratio 5.43 %
[2019-01-12] MEDS ORDERED: HumuLIN R IV ONE ×3 (13:27→20:50)
[2019-01-12] MEDS ORDERED: APRESOLINE IV ONE ×2 (13:48→20:48)
[2019-01-12] MEDS ORDERED: APRESOLINE ONE ×2 (13:49→20:53)
[2019-01-12] MEDS ORDERED: XANAX PO ONE (14:49)
--- NOTE | 2019-01-12 14:55 | Nuclear Medicine Report ---
LUNG SCAN, VENTILATION AND PERFUSION: History: Short of breath. Technique: 5mci of Tc99m MAA was infused for the perfusion images. 15mci XE 133 gas was inhaled for the ventilatory images. Correlation is made with a chest x-ray dated 01/12/19. Findings: Inhalation of Xenon gas demonstrates a normal distribution of the activity throughout both lungs. The wash out phases show no focal retention of activity. After injection of Technetium 99m macroaggregated albumin gamma camera imaging of the lungs in multiple projections demonstrates normal pulmonary contours with a homogeneous distribution of activity. No focal areas of perfusion deficiency are identified. IMPRESSION: Low probability for pulmonary embolus.
--- NOTE | 2019-01-12 14:57 | Cat Scan Report ---
CT ABDOMEN PELVIS WITHOUT CONTRAST: HISTORY: abdominal pain. COMPARISON: none. TECHNIQUE: Helical CT in 1.25mm intervals without IV contrast. Sagittal and coronal reconstructions. FINDINGS: Lung bases: Normal. Liver: Normal. Biliary system: Normal. Pancreas: Normal. Spleen: Normal. Kidneys/ureters/bladder: Normal. Adrenal glands: Normal. Aorta: Normal. Intestines: Normal. Appendix: Normal. Pelvic viscera: Normal. Ascites: None. Adenopathy: None. Musculoskeletal: Normal. A penile pump is partially imaged. IMPRESSION: Unremarkable CT scan of the abdomen and pelvis without contrast.
--- NOTE | 2019-01-12 15:23 | History and Physical Report ---
History of Present Illness Chief complaint: My chest hurts History of present illness: 38 YO Male with ESRD on HD (M,W,F), HTN, TIA, DM, Gastroparesis, NV, Migraine SOARES, PE, presents to ED for evaluation. Pt states that he has experienced pain in his chest over the past 2 days. Pt states that pain is 5/10, localized to the left chest, associated with nausea, and multiple episodes of vomiting, and abdominal pain. Pt acknowledges orthopnea/PND, decreased exercise tolerance, shortness of breath, dypsnea on exertionl. Pt was last dialyzed on Tuesday. EMS notified, and upon arrival the patient was found to be in distress. Pt transported to [facility] for further care. Pt seen and evaluated in ED and found to have ESRD, Fluid Overload, and Chest Pain. Pt admitted to telemetry. Cardiology consulted in ED. Nephrology consulted in ED. Pt denies fever, chills, Palpitations, Syncope, Hemoptysis, BRBPR, unintentional weight loss, night sweats, prolonged travel/immobility, unilateral leg swelling/calf pain. Past History Past Medical History: acute NV, diabetes, ESRD, hypertension, migraines, stroke, other (Gastroparesis) Past Surgical History: Other (AVF, Vas Cath, ) Social history: . denies: smoking, alcohol abuse, prescription drug abuse Family history: diabetes, hypertension Medications and Allergies Allergies Allergy/AdvReac Type Severity Reaction Status Date / Time cefazolin [From Anc] Allergy Vomiting Verified 07/21/18 13:02 shellfish derived Allergy Anaphylaxis Verified 06/08/18 15:09 iodine AdvReac Severe Vomiting Verified 06/08/18 15:09 IV dye AdvReac Severe Vomiting Uncoded 04/28/18 08:49 Home Medications Medication Instructions Recorded Confirmed Last Taken Type Insulin Glargine [Lantus VIAL] 30 units SQ QHS #1 mo 02/05/18 01/12/19 09/21/18 Rx 15units Insulin Aspart [NovoLOG Flexpen] 0 units SQ AC PRN 03/03/18 01/12/19 09/22/18 History 2units Lisinopril [Zestril] 5 mg PO QDAY 01/12/19 01/12/19 Unknown History Review of Systems Constitutional: no weight loss, no weight gain, no fever Ears, nose, mouth and throat: no ear pain, no ear discharge, no tinnitis, no decreased hearing, no nose pain Cardiovascular: chest pain, orthopnea, shortness of breath, dyspnea on exertion, paroxysmal nocturnal dyspnea, decreased exercise tolerance, no palpitations, no rapid/irregular heart beat Respiratory: no cough, no cough with sputum, no hemoptysis Gastrointestinal: nausea, vomiting, no hematemesis, no BRBPR, no melena, no early satiety Genitourinary Male: no hematuria, no flank pain, no discharge, no urinary frequency, no urinary hesitancy Rectal: no pain, no incontinence, no bleeding Musculoskeletal: no neck stiffness, no neck pain, no shooting arm pain, no arm numbness/tingling, no low back pain Integumentary: no rash, no pruritis, no redness, no sores, no wounds Neurological: no transient paralysis, no paralysis, no weakness, no parathesias, no numbness, no tingling Psychiatric: no anxiety, no memory loss, no change in sleep habits, no sleep disturbances, no insomnia, no hypersomnia, no change in appetite Endocrine: no cold intolerance, no heat intolerance, no polyphagia, no excessive thirst, no polydipsia, no polyuria Hematologic/Lymphatic: no easy bruising, no easy bleeding, no lymphadenopathy, no lymphedema Allergic/Immunologic: no urticaria, no allergic rhinitis, no wheezing, no persistent infections, no anaphylaxis, no angioedema Exam - Constitutional Vitals: Temp Pulse Resp BP Pulse Ox 99 F 118 H 11 L 166/103 94 01/12/19 12:15 01/12/19 14:54 01/12/19 14:54 01/12/19 14:54 01/12/19 14:54 General appearance: Present: mild distress - EENT Eyes: Present: PERRL ENT: hearing intact, clear oral mucosa - Neck Neck: Present: supple, normal ROM - Respiratory Respiratory effort: normal Respiratory: bilateral: diminished - Cardiovascular Heart Sounds: Present: S1 & S2. Absent: rub, click - Extremities Extremity abnormal: edema Peripheral Pulses: within normal limits - Abdominal General gastrointestinal: Present: soft, non-tender, non-distended, normal bowel sounds Male genitourinary: Present: normal - Integumentary Integumentary: Present: clear, warm, dry - Musculoskeletal Musculoskeletal: gait normal, strength equal bilaterally - Psychiatric Psychiatric: appropriate mood/affect, intact judgment & insight - Neurologic Neurologic: CNII-XII intact, moves all extremities Results - Labs CBC & Chem 7: 01/12/19 11:42 01/12/19 11:42 Labs: Abnormal lab results 01/12/19 01/12/19 01/12/19 Range/Units 11:42 11:42 11:42 RBC 3.41 L (3.65-5.03) M/mm3 Hgb 10.0 L (11.8-15.2) gm/dl Hct 30.3 L (35.5-45.6) % Lymph % (Auto) 13.0 L (13.4-35.0) % Seg Neutrophils % 82.3 H (40.0-70.0) % Seg Neutrophils # 8.4 H (1.8-7.7) K/mm3 PT 15.0 H (12.2-14.9) Sec. D-Dimer 723.05 H (0-234) ng/mlDDU VBG pH (7.320-7.420) Sodium 131 L (137-145) mmol/L Chloride 87.0 L (98-107) mmol/L Carbon Dioxide 20 L (22-30) mmol/L BUN 37 H (9-20) mg/dL Creatinine 8.2 H (0.8-1.5) mg/dL Glucose 391 H (75-100) mg/dL Troponin T 0.507 H* (0.00-0.029) ng/mL Triglycerides 238 H (2-149) mg/dL HDL Cholesterol 32 L (40-59) mg/dL 01/12/19 01/12/19 Range/Units 13:35 14:29 RBC (3.65-5.03) M/mm3 Hgb (11.8-15.2) gm/dl Hct (35.5-45.6) % Lymph % (Auto) (13.4-35.0) % Seg Neutrophils % (40.0-70.0) % Seg Neutrophils # (1.8-7.7) K/mm3 PT (12.2-14.9) Sec. D-Dimer (0-234) ng/mlDDU VBG pH 7.421 H (7.320-7.420) Sodium (137-145) mmol/L Chloride (98-107) mmol/L Carbon Dioxide (22-30) mmol/L BUN (9-20) mg/dL Creatinine (0.8-1.5) mg/dL Glucose (75-100) mg/dL Troponin T 0.493 H* (0.00-0.029) ng/mL Triglycerides (2-149) mg/dL HDL Cholesterol (40-59) mg/dL Assessment and Plan - Patient Problems (1) ESRD (end stage renal disease) on dialysis Current Visit: Yes Status: Acute Plan to address problem: Nephrology consulted in dialysis, dialysis as per renal team. strict I/O, monitor uop q shift, avoid nephrotoxic agents. (2) Chest pain Current Visit: Yes Status: Acute Qualifiers: Ischemic chest pain type: stable angina pectoris Plan to address problem: Admit to telemetry, serial cardiac enzymes, ekg, telemetry, cardiology consulted in ED. (3) Diabetic gastroparesis Current Visit: Yes Status: Acute Plan to address problem: ADA diet, insulin, accu check, diet as tolerated, frequent small meals. (4) DVT prophylaxis Current Visit: Yes Status: Acute Plan to address problem: SCD to BLE while in bed.
[2019-01-12] MEDS ORDERED: TYLENOL PO PRN (15:28)
[2019-01-12] MEDS ORDERED: SODIUM CHLORIDE FLUSH SYRINGE 10 ML IV PRN ×2 (15:28)
[2019-01-12] MEDS ORDERED: ZOFRAN IV PRN (15:28)
[2019-01-12] MEDS ORDERED: PROVENTIL IH PRN (15:28)
[2019-01-12] MEDS ORDERED: BABY ASPIRIN PO STA (15:28)
[2019-01-12] MEDS ORDERED: NITROSTAT SL PRN (15:28)
[2019-01-12] MEDS ORDERED: D50W (25GM) Syringe IV PRN (15:37)
[2019-01-12] MEDS ORDERED: HumuLIN R ONE ×2 (18:18→21:10)
[2019-01-12] MEDS ORDERED: DILAUDID IV ONE (18:19)
[2019-01-12] MEDS ORDERED: DILAUDID ONE (18:21)
[2019-01-12] MEDS: HumaLOG SUB-Q SCH (18:25)
[2019-01-12] MEDS ORDERED: ATIVAN IV PRN (18:26)
[2019-01-12] MEDS ORDERED: LANTUS SUB-Q SCH (22:00)
[2019-01-12] MEDS: DILAUDID IV PRN (23:30)
[2019-01-12] MEDS: SODIUM CHLORIDE FLUSH SYRINGE 10 ML IV SCH (23:35)
--- NOTE | 2019-01-12 23:56 | Consultation ---
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 He presents with complaints of sharp chest pain located in the central chest area , 9/10 in intensity , with associated nausea and vomitting .He denies any associated diarrhoea . He reports questionable fevers, denies any chills , orthopnea or PND. The last home dialysis was tuesday. He denies any excessive weight gain or lower extremity swelling. He denies any bleeding from any orifice . Past History Past Medical History: acute ID, diabetes, ESRD, hypertension, migraines, stroke, other (Gastroparesis) Past Surgical History: Other (AVF, Vas Cath, ) Social history: . denies: smoking, alcohol abuse, prescription drug abuse Family history: diabetes, hypertension Medications and Allergies Allergies Allergy/AdvReac Type Severity Reaction Status Date / Time cefazolin [From Anc] Allergy Vomiting Verified 07/21/18 13:02 shellfish derived Allergy Anaphylaxis Verified 06/08/18 15:09 iodine AdvReac Severe Vomiting Verified 06/08/18 15:09 IV dye AdvReac Severe Vomiting Uncoded 04/28/18 08:49 Home Medications Medication Instructions Recorded Confirmed Last Taken Type Insulin Glargine [Lantus VIAL] 30 units SQ QHS #1 mo 02/05/18 01/12/19 09/21/18 Rx 15units Insulin Aspart [NovoLOG Flexpen] 0 units SQ AC PRN 03/03/18 01/12/19 09/22/18 History 2units Lisinopril [Zestril] 5 mg PO QDAY 01/12/19 01/12/19 Unknown History Active Meds: Active Medications Acetaminophen (Tylenol) 650 mg PO Q4H PRN PRN Reason: Pain MILD(1-3)/Fever >100.5/SOARES Albuterol (Proventil) 2.5 mg IH Q4HRT PRN PRN Reason: Shortness Of Breath Dextrose (D50w (25gm) Syringe) 50 ml IV PRN PRN PRN Reason: Hypoglycemia Hydralazine HCl (Apresoline) 10 mg IV Q6H PRN PRN Reason: Hypertension Hydromorphone HCl (Dilaudid) 0.25 mg IV Q3H PRN PRN Reason: Pain , Severe (7-10) Last Admin: 01/12/19 23:30 Dose: 0.25 mg Documented by: Insulin Human Lispro (Humalog) 0 unit SUB-Q Q6HR [facility]; Protocol Last Admin: 01/12/19 18:25 Dose: Not Given Documented by: Lisinopril (Zestril) 5 mg PO QDAY [facility] Lorazepam (Ativan) 1 mg IV Q4H PRN PRN Reason: Agitation Nitroglycerin (Nitrostat) 0.4 mg SL Q5M PRN PRN Reason: Chest Pain Ondansetron HCl (Zofran) 4 mg IV Q6H PRN PRN Reason: Nausea And Vomiting Sodium Chloride (Sodium Chloride Flush Syringe 10 Ml) 10 ml IV BID [facility] Last Admin: 01/12/19 23:35 Dose: 10 ml Documented by: Sodium Chloride (Sodium Chloride Flush Syringe 10 Ml) 10 ml IV PRN PRN PRN Reason: LINE FLUSH Sodium Chloride (Sodium Chloride Flush Syringe 10 Ml) 10 ml IV PRN PRN PRN Reason: LINE FLUSH Review of Systems Constitutional: fever, chills, fatigue Cardiovascular: chest pain, no orthopnea, no edema, no syncope Respiratory: no cough, no shortness of breath Gastrointestinal: nausea, vomiting, no abdominal pain Genitourinary Male: hematuria, no dysuria Musculoskeletal: leg numbness/tingling, frequent falls Integumentary: no pruritis Neurological: no head injury, no weakness, no parathesias Psychiatric: no anxiety, no memory loss Endocrine: no cold intolerance, no heat intolerance Hematologic/Lymphatic: easy bruising, no easy bleeding Allergic/Immunologic: no urticaria Exam - Vital Signs Vital signs: Vital Signs Pulse Ox 100 01/12/19 11:49 - General Appearance General appearance: well-developed, well-nourished EENT: ATNC, PERRL Neck: Present: neck supple Respiratory: Clear to Ascultation Heart: regular, S1S2 Gastrointestinal: Present: normal, normoactive bowel sounds Integumentary: no rash Neurologic: no focal deficit, alert and oriented x3 Musculoskeletal: Present: deferred Psychiatric: mood/affect appropriate Results - Lab Results 01/12/19 11:42 01/12/19 11:42 Most recent lab results Calcium 9.1 mg/dL (8.4-10.2) 01/12/19 11:42 Assessment and Plan 1) End stage renal disease Current Visit: Yes Status: Acute Plan to address problem: End stage renal disease Access : Right arm AVG - Will Plan for Dialysis in the am. -UF goal : 2L 2k/2.5ca/35hco3 bath. 2 Anemia in chronic kidney disease (CKD) Current Visit: Yes Status: Acute Qualifiers: Chronic kidney disease stage: on chronic dialysis Qualified Code(s): N18.6 - End stage renal disease; D63.1 - Anemia in chronic kidney disease; Z99.2 - Dependence on renal dialysis Plan to address problem: Moderate anemia hemoglobin is 10.0g/dl Etiology secondary to chronic kidney disease Will give [id number] of EPO with dialysis. Monitor CBC (3) Hypertension Current Visit: Yes Status: Acute Plan to address problem: Hypertension uncontrolled Continue oral medications 4) Chest pain : - Elevated troponins noted. - I reviewed EKG with inverted T waves in lateral leads. - Trend troponin - Will hold off hemodialysis today , - Dialysis in the am.
[2019-01-13] MEDS: HumaLOG SUB-Q SCH ×4 (00:24→18:32)
[2019-01-13] MEDS: ZOFRAN IV PRN ×3 (00:25→19:33)
[2019-01-13] MEDS: APRESOLINE IV PRN ×2 (00:25→16:05)
[2019-01-13] MEDS ORDERED: NACL 0.9% 100 ML IV PRN (00:27)
--- NOTE | 2019-01-13 01:06 | Consultation ---
History of Present Illness Consult date: 01/13/19 History of present illness: 38 YO Male with ESRD on HD (M,W,F), HTN, TIA, DM, Gastroparesis, DC, Migraine SOARES, PE, presents to ED for evaluation. Pt states that he has experienced pain in his chest over the past 2 days. Pt states that pain is 5/10, localized to the left chest, associated with nausea, and multiple episodes of vomiting, and abdominal pain. Pt acknowledges orthopnea/PND, decreased exercise tolerance, shortness of breath, dypsnea on exertionl. Pt was last dialyzed on Tuesday. EMS notified, and upon arrival the patient was found to be in distress. Pt transported to [facility] for further care. Pt seen and evaluated in ED and found to have ESRD, Fluid Overload, and Chest Pain. Pt admitted to telemetry. Cardiology consulted in ED. Nephrology consulted in ED. Pt denies fever, chills, Palpitations, Syncope, Hemoptysis, BRBPR, unintentional weight loss, night sweats, prolonged travel/immobility, unilateral leg swelling/calf pain. Past History Past Medical History: acute DC, diabetes, ESRD, hypertension, migraines, stroke, other (Gastroparesis) Past Surgical History: Other (AVF, Vas Cath, ) Social history: . denies: smoking, alcohol abuse, prescription drug abuse Family history: diabetes, hypertension Medications and Allergies Allergies Allergy/AdvReac Type Severity Reaction Status Date / Time cefazolin [From Ancef] Allergy Vomiting Verified 07/21/18 13:02 shellfish derived Allergy Anaphylaxis Verified 06/08/18 15:09 iodine AdvReac Severe Vomiting Verified 06/08/18 15:09 IV dye AdvReac Severe Vomiting Uncoded 04/28/18 08:49 Home Medications Medication Instructions Recorded Confirmed Last Taken Type Insulin Glargine [Lantus VIAL] 30 units SQ QHS #1 mo 02/05/18 01/12/19 09/21/18 Rx 15units Insulin Aspart [NovoLOG Flexpen] 0 units SQ AC PRN 03/03/18 01/12/19 09/22/18 History 2units Lisinopril [Zestril] 5 mg PO QDAY 01/12/19 01/12/19 Unknown History Active Meds: Active Medications Acetaminophen (Tylenol) 650 mg PO Q4H PRN PRN Reason: Pain MILD(1-3)/Fever >100.5/SOARES Albuterol (Proventil) 2.5 mg IH Q4HRT PRN PRN Reason: Shortness Of Breath Dextrose (D50w (25gm) Syringe) 50 ml IV PRN PRN PRN Reason: Hypoglycemia Epoetin Pernell (Procrit) 10,000 unit IV MARI PRN PRN Reason: hemodialysis Hydralazine HCl (Apresoline) 10 mg IV Q6H PRN PRN Reason: Hypertension Last Admin: 01/13/19 00:25 Dose: 10 mg Documented by: Hydromorphone HCl (Dilaudid) 0.25 mg IV Q3H PRN PRN Reason: Pain , Severe (7-10) Last Admin: 01/12/19 23:30 Dose: 0.25 mg Documented by: Sodium Chloride (Nacl 0.9%) 100 mls @ 999 mls/hr IV MARI PRN PRN Reason: Hypotension Insulin Human Lispro (Humalog) 0 unit SUB-Q Q6HR [facility]; Protocol Last Admin: 01/13/19 00:24 Dose: 4 unit Documented by: Lisinopril (Zestril) 5 mg PO QDAY SANDRINE Lorazepam (Ativan) 1 mg IV Q4H PRN PRN Reason: Agitation Nitroglycerin (Nitrostat) 0.4 mg SL Q5M PRN PRN Reason: Chest Pain Ondansetron HCl (Zofran) 4 mg IV Q6H PRN PRN Reason: Nausea And Vomiting Last Admin: 01/13/19 00:25 Dose: 4 mg Documented by: Sodium Chloride (Sodium Chloride Flush Syringe 10 Ml) 10 ml IV BID SANDRINE Last Admin: 01/12/19 23:35 Dose: 10 ml Documented by: Sodium Chloride (Sodium Chloride Flush Syringe 10 Ml) 10 ml IV PRN PRN PRN Reason: LINE FLUSH Physical Examination Vital Signs Pulse Ox 100 01/12/19 11:49 Results 01/12/19 11:42 01/12/19 11:42 Cardiac Enzymes 01/12/19 Range/Units 11:42 AST 15 (5-40) units/L Coagulation 01/12/19 Range/Units 11:42 PT 15.0 H (12.2-14.9) Sec. INR 1.11 (0.87-1.13) APTT 25.1 (24.2-36.6) Sec. Lipids 01/12/19 Range/Units 11:42 Triglycerides 238 H (2-149) mg/dL Cholesterol 174 (50-199) mg/dL HDL Cholesterol 32 L (40-59) mg/dL Cholesterol/HDL Ratio 5.43 % CBC 01/12/19 Range/Units 11:42 WBC 10.1 (4.5-11.0) K/mm3 RBC 3.41 L (3.65-5.03) M/mm3 Hgb 10.0 L (11.8-15.2) gm/dl Hct 30.3 L (35.5-45.6) % Plt Count 156 (140-440) K/mm3 Lymph # 1.3 (1.2-5.4) K/mm3 [place] # 0.4 (0.0-0.8) K/mm3 Eos # 0.0 (0.0-0.4) K/mm3 Baso # 0.0 (0.0-0.1) K/mm3 Comprehensive Metabolic Panel 01/12/19 Range/Units 11:42 Sodium 131 L (137-145) mmol/L Potassium 4.2 (3.6-5.0) mmol/L Chloride 87.0 L (98-107) mmol/L Carbon Dioxide 20 L (22-30) mmol/L BUN 37 H (9-20) mg/dL Creatinine 8.2 H (0.8-1.5) mg/dL Glucose 391 H (75-100) mg/dL Calcium 9.1 (8.4-10.2) mg/dL AST 15 (5-40) units/L ALT 9 (7-56) units/L Alkaline Phosphatase 113 (35-129) units/L Total Protein 7.9 (6.3-8.2) g/dL Albumin 4.4 (3.9-5) g/dL Assessment and Plan (1) ESRD (end stage renal disease) on dialysis Management per nephrology (2) Chest pain Troponins plateaued Atypical chest pain EKG shows sinus rhythm with nonspecific STTW changes Patient had a stress test and echo at [facility] in the recent past. Will review records (unable to view them from this hospital). (3) Diabetic gastroparesis Management per primary
[2019-01-13] MEDS: DILAUDID IV PRN ×3 (06:19→19:33)
[2019-01-13] MEDS: SODIUM CHLORIDE FLUSH SYRINGE 10 ML IV SCH (10:00)
[2019-01-13] MEDS ORDERED: ZESTRIL PO SCH (10:00)
--- NOTE | 2019-01-13 10:10 | Progress Note ---
Subjective Interval history: Patient was seen today for follow-up on multiple renal related issues Events of this hospitalization noted Admitted with fluid overload chest pain uncontrolled blood sugar Uncontrolled hypertension history of gastroparalysis On hemodialysis 3 times a week Tuesday Patient denies having any chest pain pressure or shortness of breath Vitals labs intake output medications were reviewed Social history: Reviewed Allergies: Reviewed Family history: Reviewed Physical examination HEENT: Oral mucosa moist no pallor or icterus Neck: Supple no JVD Chest: Clear to auscultation anteriorly CVS: Regular rate and rhythm S1 and S2 heard Abdomen: Soft nontender no suprapubic masses no organomegaly appreciable Extremity: Dry skin less than 1+ peripheral edema Musculoskeletal: No joint effusion noted in knees and ankle Neurological: Alert awake Dermatology: No petechial rashes Psychiatry: No evidence of any agitation and aggression noted Assessment and plan End-stage renal disease: Patient will continue with hemodialysis treatment 3 times per week as tolerated ultrafiltration as tolerated monitor dialysis related labs he has been placed on hemodialysis 3 times a week Tuesday, Anemia in end-stage renal disease: To monitor and follow erythropoietin periodically as needed patient is currently on erythropoietin 10,000 unit with hemodialysis, Secondary hyperparathyroidism: Phosphorus and PTH controls will be reviewed periodically Hypertension and volume: Goal systolic blood pressure less than 140, fluid restriction 1200 mL per day Blood pressure requires better control current systolic blood pressure 168 heart rate around [address] the patient on clonidine patch for now Increase lisinopril to 20 mg daily Diet: Patient needs to be in high protein diet due to end-stage renal disease nutrition evaluation and follow-up is recommended Abnormal troponin to be followed by cardiology, status post evaluation patient admitted with left-sided chest pain he is high risk Long-standing poorly controlled diabetes Metabolic acidosis to follow Patient has been adequately counseled and educated from renal standpoint in terms of diet lifestyle changes need to comply with treatment recommendation fluid restriction etc. prognosis is guarded due to end-stage renal disease statu s Patient was adequately counseled and educated regarding multiple renal related issues Pertinent lab findings were discussed with patient, patient does exhibit good understanding of renal issues We'll continue to follow and make recommendation from renal standpoint Objective - Vital Signs Vital signs: Vital Signs - 12hr 01/12/19 01/12/19 01/12/19 22:35 22:37 22:51 Temperature 98.0 F Pulse Rate 121 H 114 H Pulse Rate [ 110 H Apical] Respiratory 18 18 Rate Respiratory Rate [Right Arm ] Blood Pressure 177/98 O2 Sat by Pulse 99 100 Oximetry 01/12/19 01/12/19 01/12/19 23:30 23:38 23:39 Temperature Pulse Rate Pulse Rate [ Apical] Respiratory 18 18 18 Rate Respiratory Rate [Right Arm ] Blood Pressure O2 Sat by Pulse Oximetry 01/12/19 01/13/19 01/13/19 23:55 00:00 00:25 Temperature Pulse Rate 86 Pulse Rate [ Apical] Respiratory 18 Rate Respiratory 18 Rate [Right Arm ] Blood Pressure 177/98 O2 Sat by Pulse Oximetry 01/13/19 01/13/19 01/13/19 04:24 06:19 06:49 Temperature 98.0 F Pulse Rate 121 H Pulse Rate [ Apical] Respiratory 18 18 18 Rate Respiratory Rate [Right Arm ] Blood Pressure 169/84 O2 Sat by Pulse 99 Oximetry 01/13/19 01/13/19 09:30 09:31 Temperature 97.5 F L Pulse Rate 120 H Pulse Rate [ Apical] Respiratory 18 Rate Respiratory Rate [Right Arm ] Blood Pressure 168/92 O2 Sat by Pulse 96 Oximetry - Lab 01/12/19 11:42 01/12/19 11:42 Most recent lab results Calcium 9.1 mg/dL (8.4-10.2) 01/12/19 11:42 Medications & Allergies - Medications Allergies/Adverse Reactions: Allergies cefazolin [From Anc] Allergy (Verified 07/21/18 13:02) Vomiting shellfish derived Allergy (Verified 06/08/18 15:09) Anaphylaxis iodine Adverse Reaction (Severe, Verified 06/08/18 15:09) Vomiting IV dye Adverse Reaction (Severe, Uncoded 04/28/18 08:49) Vomiting Home Medications: Home Medications Medication Instructions Recorded Confirmed Last Taken Type Insulin Glargine [Lantus VIAL] 30 units SQ QHS #1 mo 02/05/18 01/12/19 09/21/18 Rx 15units Insulin Aspart [NovoLOG Flexpen] 0 units SQ AC PRN 03/03/18 01/12/19 09/22/18 History 2units Lisinopril [Zestril] 5 mg PO QDAY 01/12/19 01/12/19 Unknown History Active Medications: Generic Name Dose Route Start Last Admin Trade Name Freq PRN Reason Stop Dose Admin Acetaminophen 650 mg 01/12/19 15:28 Tylenol PO Q4H PRN Pain MILD(1-3)/Fever >100.5/SOARES Albuterol 2.5 mg 01/12/19 15:28 Proventil IH Q4HRT PRN Shortness Of Breath Clonidine HCl 0.2 mg 01/20/19 10:00 Catapres-Tts Patch TD QWEEK [facility] Dextrose 50 ml 01/12/19 15:37 D50w (25gm) Syringe IV PRN PRN Hypoglycemia Epoetin Pernell 10,000 unit 01/13/19 00:27 Procrit IV MARI PRN hemodialysis Hydralazine HCl 10 mg 01/12/19 23:50 01/13/19 00:25 Apresoline IV 10 mg Q6H PRN Administration Hypertension Hydromorphone HCl 0.25 mg 01/12/19 18:26 01/13/19 06:19 Dilaudid IV 0.25 mg Q3H PRN Administration Pain , Severe (7-10) Sodium Chloride 100 mls @ 999 mls/hr 01/13/19 00:27 Nacl 0.9% IV MARI PRN Hypotension Insulin Human Lispro 0 unit 01/12/19 18:00 01/13/19 06:19 Humalog SUB-Q 6 unit Q6HR [facility] Administration Protocol Lisinopril 20 mg 01/13/19 10:09 Zestril PO QDAY SANDRINE Lorazepam 1 mg 01/12/19 18:26 Ativan IV Q4H PRN Agitation Nitroglycerin 0.4 mg 01/12/19 15:28 Nitrostat SL Q5M PRN Chest Pain Ondansetron HCl 4 mg 01/12/19 23:48 01/13/19 06:19 Zofran IV 4 mg Q6H PRN Administration Nausea And Vomiting Sodium Chloride 10 ml 01/12/19 22:00 01/12/19 23:35 Sodium Chloride Flush Syringe 10 Ml IV 10 ml BID SANDRINE Administration Sodium Chloride 10 ml 01/12/19 15:28 Sodium Chloride Flush Syringe 10 Ml IV PRN PRN LINE FLUSH
[2019-01-13] MEDS: ZESTRIL PO SCH (12:00)
[2019-01-13] MEDS ORDERED: CATAPRES-TTS PATCH TD SCH (12:00)
[2019-01-13] MEDS ORDERED: NACL 0.9 (PRIMING MACHINE ONLY DIALYSIS) MC ONE (13:44)
[2019-01-13] MEDS: PROCRIT IV PRN (14:30)
--- NOTE | 2019-01-13 17:22 | Progress Note ---
Assessment and Plan (1) ESRD (end stage renal disease) on dialysis Current Visit: Yes Status: Acute Plan to address problem: Nephrology consulted in dialysis, dialysis as per renal team. strict I/O, monitor uop q shift, avoid nephrotoxic agents. (2) Chest pain Current Visit: Yes Status: Acute Qualifiers: Ischemic chest pain type: stable angina pectoris Plan to address problem: Troponins plateaued Patient had Lexiscan and echocardiogram the [facility] Dr. Jimenez to access the records (3) Diabetic gastroparesis Current Visit: Yes Status: Acute Plan to address problem: Clear liquids started 4)Type 2 diabetes Coverage for now (5) DVT prophylaxis Current Visit: Yes Status: Acute Plan to address problem: SCD to BLE while in bed. Subjective Date of service: 01/13/19 Objective - Constitutional Vitals: Vital Signs - 12hr 01/13/19 01/13/19 01/13/19 06:19 06:49 09:30 Temperature 97.5 F L Pulse Rate Respiratory 18 18 Rate Blood Pressure Blood Pressure [Left] O2 Sat by Pulse Oximetry 01/13/19 01/13/19 01/13/19 09:31 10:30 10:45 Temperature 97.5 F L Pulse Rate 120 H 119 H 101 H Respiratory 18 18 Rate Blood Pressure 168/92 191/102 164/104 Blood Pressure [Left] O2 Sat by Pulse 96 Oximetry 01/13/19 01/13/19 01/13/19 11:00 11:15 11:30 Temperature Pulse Rate 108 H 119 H 115 H Respiratory Rate Blood Pressure 122/40 146/98 133/87 Blood Pressure [Left] O2 Sat by Pulse Oximetry 01/13/19 01/13/19 01/13/19 11:45 12:00 12:15 Temperature Pulse Rate 116 H 117 H 123 H Respiratory Rate Blood Pressure 152/81 126/69 151/81 Blood Pressure [Left] O2 Sat by Pulse Oximetry 01/13/19 01/13/19 01/13/19 12:30 12:45 13:00 Temperature Pulse Rate 119 H 118 H 118 H Respiratory Rate Blood Pressure 158/81 141/83 138/79 Blood Pressure [Left] O2 Sat by Pulse Oximetry 01/13/19 01/13/19 01/13/19 13:15 13:30 13:45 Temperature Pulse Rate 124 H 110 H 88 Respiratory Rate Blood Pressure 145/79 130/74 128/54 Blood Pressure [Left] O2 Sat by Pulse Oximetry 01/13/19 01/13/19 01/13/19 14:00 15:30 16:05 Temperature 98.0 F 98.6 F Pulse Rate 120 H 125 H 124 H Respiratory 18 20 Rate Blood Pressure 167/89 167/90 Blood Pressure 167/90 [Left] O2 Sat by Pulse 100 Oximetry - Labs CBC & Chem 7: 01/12/19 11:42 01/12/19 11:42 Labs: Abnormal lab results 01/12/19 01/12/19 01/12/19 Range/Units 16:55 17:48 18:16 POC Glucose 394 H (70-105) Troponin T 0.472 H* 0.492 H* (0.00-0.029) ng/mL 01/12/19 01/12/19 01/12/19 Range/Units 20:46 21:16 22:00 POC Glucose 364 H 271 H (70-105) Troponin T 0.520 H* (0.00-0.029) ng/mL 01/12/19 01/13/19 Range/Units 23:50 05:46 POC Glucose 251 H 307 H (70-105) Troponin T (0.00-0.029) ng/mL
[2019-01-14] MEDS: DILAUDID IV PRN ×5 (00:09→21:34)
[2019-01-14] MEDS: SODIUM CHLORIDE FLUSH SYRINGE 10 ML IV SCH ×3 (00:10→21:25)
[2019-01-14] MEDS: APRESOLINE IV PRN ×2 (00:10→06:46)
[2019-01-14] MEDS: HumaLOG SUB-Q SCH ×4 (00:13→17:26)
[2019-01-14] MEDS: ZOFRAN IV PRN ×2 (06:47→21:24)
--- NOTE | 2019-01-14 09:19 | Progress Note ---
Assessment and Plan (1) ESRD (end stage renal disease) on dialysis Management per nephrology (2) Chest pain Troponins plateaued Atypical chest pain EKG shows sinus rhythm with nonspecific STTW changes Patient had a stress test and echo at [facility] in 2014. Echo showed normal LV function. Stress test was negative for stress induced ischemia at that time. Plan for repeat stress test and echo. (3) Diabetic gastroparesis Management per primary Subjective Date of service: 01/14/19 Interval history: No acute events. Resting comfortably. no chest pain or SOB. Objective Vital Signs Temp Pulse Resp Resp BP BP Pulse Ox 01/14/19 06:46 125 H 168/99 01/14/19 06:04 98.5 F 124 H 20 168/99 100 01/13/19 23:03 97.8 F 20 189/96 97 01/13/19 20:03 18 01/13/19 19:47 18 99 01/13/19 19:40 20 01/13/19 19:33 20 01/13/19 19:29 99.1 F 127 H 12 158/82 98 01/13/19 19:10 122 H 01/13/19 16:05 124 H 167/90 01/13/19 15:30 98.6 F 125 H 20 167/90 100 01/13/19 14:00 98.0 F 120 H 18 167/89 01/13/19 13:45 88 128/54 01/13/19 13:30 110 H 130/74 01/13/19 13:15 124 H 145/79 01/13/19 13:00 118 H 138/79 01/13/19 12:45 118 H 141/83 01/13/19 12:30 119 H 158/81 01/13/19 12:15 123 H 151/81 01/13/19 12:00 117 H 126/69 01/13/19 11:45 116 H 152/81 01/13/19 11:30 115 H 133/87 01/13/19 11:15 119 H 146/98 01/13/19 11:00 108 H 122/40 01/13/19 10:45 101 H 164/104 01/13/19 10:30 97.5 F L 119 H 18 191/102 01/13/19 10:00 120 H 01/13/19 09:31 120 H 18 168/92 96 03/09/19 09:30 97.5 F L - Physical Examination Neck: Positive: neck supple
[2019-01-14] MEDS: ZESTRIL PO SCH (09:27)
--- NOTE | 2019-01-14 10:35 | Progress Note ---
Subjective Interval history: Patient was seen today for follow-up on multiple renal related issues Events of this hospitalization noted Admitted with fluid overload chest pain uncontrolled blood sugar Uncontrolled hypertension history of gastroparalysis Currently on hemodialysis Tuesday Vitals labs intake output medications were reviewed Social history: Reviewed Allergies: Reviewed Family history: Reviewed Physical examination HEENT: Oral mucosa moist no pallor or icterus Neck: Supple no JVD Chest: Clear to auscultation anteriorly CVS: Regular rate and rhythm S1 and S2 heard Abdomen: Soft nontender no suprapubic masses no organomegaly appreciable Extremity: Dry skin less than 1+ peripheral edema Musculoskeletal: No joint effusion noted in knees and ankle Neurological: Alert awake Dermatology: No petechial rashes Psychiatry: No evidence of any agitation and aggression noted Assessment and plan End-stage renal disease: Continue with hemodialysis treatment on Tuesday and Tuesday , ultrafiltration goal was reduced yesterday on dialysis Blood pressure control needs to improve, will increase clonidine Will given 250 mL of IV fluid patient appears to be intravascularly volume depleted Will order labs patient does need some follow-up Chest pain felt to be atypical by cardiology Anemia in end-stage renal disease: To monitor and follow erythropoietin periodically as needed patient is currently on erythropoietin 10,000 unit with hemodialysis, Secondary hyperparathyroidism: Phosphorus and PTH controls will be reviewed periodically Hypertension and volume: Goal systolic blood pressure less than 140, fluid restriction 1200 mL per day Increase lisinopril to 40 milligrams daily for now We'll continue to follow and make recommendation from renal standpoint Objective - Vital Signs Vital signs: Vital Signs - 12hr 01/13/19 01/14/19 01/14/19 23:03 06:04 06:46 Temperature 97.8 F 98.5 F Pulse Rate 124 H 125 H Pulse Rate [ Bilateral Throughout] Respiratory 20 20 Rate Respiratory Rate [Bilateral Throughout] Blood Pressure 189/96 168/99 168/99 O2 Sat by Pulse 97 100 Oximetry 01/14/19 01/14/19 01/14/19 09:14 09:23 09:24 Temperature Pulse Rate Pulse Rate [ 130 H 129 H Bilateral Throughout] Respiratory Rate Respiratory 24 24 Rate [Bilateral Throughout] Blood Pressure O2 Sat by Pulse 99 Oximetry - Lab 01/12/19 11:42 01/12/19 11:42 Most recent lab results Calcium 9.1 mg/dL (8.4-10.2) 01/12/19 11:42 Medications & Allergies - Medications Allergies/Adverse Reactions: Allergies cefazolin [From [facility]] Allergy (Verified 07/21/18 13:02) Vomiting shellfish derived Allergy (Verified 06/08/18 15:09) Anaphylaxis iodine Adverse Reaction (Severe, Verified 06/08/18 15:09) Vomiting IV dye Adverse Reaction (Severe, Uncoded 04/28/18 08:49) Vomiting Home Medications: Home Medications Medication Instructions Recorded Confirmed Last Taken Type Insulin Glargine [Lantus VIAL] 30 units SQ QHS #1 mo 02/05/18 01/12/19 09/21/18 Rx 15units Insulin Aspart [NovoLOG Flexpen] 0 units SQ AC PRN 03/03/18 01/12/19 09/22/18 History 2units Lisinopril [Zestril] 5 mg PO QDAY 01/12/19 01/12/19 Unknown History Active Medications: Generic Name Dose Route Start Last Admin Trade Name Freq PRN Reason Stop Dose Admin Acetaminophen 650 mg 01/12/19 15:28 Tylenol PO Q4H PRN Pain MILD(1-3)/Fever >100.5/SOARES Albuterol 2.5 mg 01/12/19 15:28 01/14/19 09:14 Proventil IH 2.5 mg Q4HRT PRN Administration Shortness Of Breath Clonidine HCl 0.2 mg 01/13/19 12:00 01/13/19 12:00 Catapres-Tts Patch TD Not Given Sa SANDRINE Dextrose 50 ml 01/12/19 15:37 D50w (25gm) Syringe IV PRN PRN Hypoglycemia Epoetin Pernell 10,000 unit 01/13/19 00:27 01/13/19 14:30 Procrit IV 10,000 unit MARI PRN Administration hemodialysis Hydralazine HCl 10 mg 01/12/19 23:50 01/14/19 06:46 Apresoline IV 10 mg Q6H PRN Administration Hypertension Hydromorphone HCl 0.25 mg 01/12/19 18:26 01/14/19 06:46 Dilaudid IV 0.25 mg Q3H PRN Administration Pain , Severe (7-10) Sodium Chloride 100 mls @ 999 mls/hr 01/13/19 00:27 Nacl 0.9% IV MARI PRN Hypotension Insulin Human Lispro 0 unit 01/12/19 18:00 01/14/19 06:48 Humalog SUB-Q 6 unit Q6HR SANDRINE Administration Protocol Lisinopril 20 mg 01/13/19 12:00 01/14/19 09:27 Zestril PO 20 mg QDAY SANDRINE Administration Lorazepam 1 mg 01/12/19 18:26 Ativan IV Q4H PRN Agitation Nitroglycerin 0.4 mg 01/12/19 15:28 Nitrostat SL Q5M PRN Chest Pain Ondansetron HCl 4 mg 01/12/19 23:48 01/14/19 06:47 Zofran IV 4 mg Q6H PRN Administration Nausea And Vomiting Sodium Chloride 10 ml 01/12/19 22:00 01/14/19 09:27 Sodium Chloride Flush Syringe 10 Ml IV 10 ml BID SANDRINE Administration Sodium Chloride 10 ml 01/12/19 15:28 Sodium Chloride Flush Syringe 10 Ml IV PRN PRN LINE FLUSH
[2019-01-14] MEDS ORDERED: CATAPRES-TTS PATCH TD SCH (10:36)
--- NOTE | 2019-01-14 10:44 | Progress Note ---
Assessment and Plan (1) ESRD (end stage renal disease) on dialysis Current Visit: Yes Status: Acute Plan to address problem: Nephrology consulted in dialysis, dialysis as per renal team. strict I/O, monitor uop q shift, avoid nephrotoxic agents. (2) Chest pain Current Visit: Yes Status: Acute Qualifiers: Ischemic chest pain type: stable angina pectoris Plan to address problem: Troponins plateaued Patient had Lexiscan and echocardiogram the [facility] Dr. Jimenez to access the records As per Barbara Stress and Echo were normal in 2014 but will do stress and ECHO tomorrow (3) Diabetic gastroparesis Current Visit: Yes Status: Acute Plan to address problem: Clear liquids started 4)Type 2 diabetes Coverage for now (5) DVT prophylaxis Current Visit: Yes Status: Acute Plan to address problem: SCD to BLE while in bed. Dispo Can discharge tomorrow if Vomiting is better and after checking Lexiscan and ECHO Subjective Date of service: 01/14/19 Objective - Constitutional Vitals: Vital Signs - 12hr 01/13/19 01/14/19 01/14/19 23:03 06:04 06:46 Temperature 97.8 F 98.5 F Pulse Rate 124 H 125 H Pulse Rate [ Bilateral Throughout] Respiratory 20 20 Rate Respiratory Rate [Bilateral Throughout] Blood Pressure 189/96 168/99 168/99 O2 Sat by Pulse 97 100 Oximetry 01/14/19 01/14/19 01/14/19 09:14 09:23 09:24 Temperature Pulse Rate Pulse Rate [ 130 H 129 H Bilateral Throughout] Respiratory Rate Respiratory 24 24 Rate [Bilateral Throughout] Blood Pressure O2 Sat by Pulse 99 Oximetry General appearance: Present: no acute distress, well-nourished - EENT Eyes: PERRL, EOM intact ENT: hearing intact, clear oral mucosa Ears: bilateral: normal - Neck Neck: supple, normal ROM - Respiratory Respiratory effort: normal Respiratory: bilateral: CTA - Breasts Breasts: normal - Cardiovascular Rhythm: regular Heart Sounds: Present: S1 & S2. Absent: gallop, rub Extremities: pulses intact, No edema, normal color, Full ROM - Gastrointestinal General gastrointestinal: Present: soft, non-tender, non-distended, normal bowel sounds - Genitourinary Male genitourinary: normal - Integumentary Integumentary: clear, warm, dry - Musculoskeletal Musculoskeletal: 1, strength equal bilaterally - Neurologic Neurologic: moves all extremities - Psychiatric Psychiatric: memory intact, appropriate mood/affect, intact judgment & insight - Labs CBC & Chem 7: 01/12/19 11:42 01/12/19 11:42 Labs: Abnormal lab results 01/13/19 01/13/19 01/14/19 Range/Units 15:05 17:51 00:04 POC Glucose 307 H 301 H 250 H (70-105) 01/14/19 01/14/19 Range/Units 06:09 08:28 POC Glucose 340 H 307 H (70-105)
[2019-01-14] MEDS: NACL 0.45% 1000 ML 1,000 ML IV SCH (13:27)
[2019-01-14] MEDS ORDERED: LANTUS SUB-Q STA (17:53)
[2019-01-14] MEDS ORDERED: NACL 0.9% 500 ML 500 ML IV ONE (18:00)
[2019-01-15] MEDS: HumaLOG SUB-Q SCH ×4 (00:09→17:17)
[2019-01-15] MEDS: NACL 0.45% 1000 ML 1,000 ML IV SCH ×2 (00:16→17:18)
[2019-01-15] MEDS: DILAUDID IV PRN ×6 (02:06→23:40)
[2019-01-15] MEDS ORDERED: LEXISCAN IV ONE ×2 (08:21→08:22)
--- NOTE | 2019-01-15 08:57 | Progress Note ---
Assessment and Plan Severe gastroparesis End-stage renal disease on hemodialysis Hypertension - resistant and chronically uncontrolled Diabetes Chronic elevated troponin cardiac cath 04/2015 documents no significant CAD. no ischemia on MPI 11/2017. left ventricle systolic function was normal with ejection fraction 60% on an echocardiogram 07/2018. For thallium stress test today, results are pending. Subjective Date of service: 01/15/19 Interval history: For thallium stress test today. Objective Vital Signs Temp Pulse Pulse Resp Resp BP Pulse Ox 01/15/19 04:51 98.7 F 114 H 20 150/93 97 01/14/19 22:47 98.7 F 115 H 20 162/89 97 01/14/19 21:50 96 01/14/19 19:45 95 01/14/19 17:39 98.5 F 126 H 18 159/80 100 01/14/19 12:47 98.4 F 119 H 20 133/79 100 01/14/19 10:00 130 H 01/14/19 09:24 129 H 24 01/14/19 09:23 99 01/14/19 09:14 130 H 24 - Physical Examination General: No Apparent Distress HEENT: Positive: PERRL Neck: Positive: trachea midline Cardiac: Positive: Reg Rate and Rhythm
--- NOTE | 2019-01-15 09:41 | Progress Note ---
Subjective Interval history: Patient was seen today for follow-up on multiple renal related issues Still continues to have some nausea but better, received IV fluid yesterday On hemodialysis 3 times a week Tuesday Patient denies having any chest pain pressure or shortness of breath Vitals labs intake output medications were reviewed Social history: Reviewed Allergies: Reviewed Family history: Reviewed Physical examination HEENT: Oral mucosa moist no pallor or icterus Neck: Supple no JVD Chest: Clear to auscultation anteriorly CVS: Regular rate and rhythm S1 and S2 heard Abdomen: Soft nontender no suprapubic masses no organomegaly appreciable Extremity: Dry skin less than 1+ peripheral edema Musculoskeletal: No joint effusion noted in knees and ankle Neurological: Alert awake Dermatology: No petechial rashes Psychiatry: No evidence of any agitation and aggression noted Assessment and plan End-stage renal disease: Patient is currently in maintenance hemodialysis and will need to continue with hemodialysis treatment 3 times per week, Tuesday and Tuesday. We'll change dialysis prescription reduced blood flow increase dialysate flow rate reduce ultrafiltration goal Ultrafiltration goals will be reduced as patient is not drinking enough water Uncontrolled hypertension: To follow, patient is currently on clonidine as well as lisinopril combination Blood pressure control slowly improving 150/93 with heart rate of 114 Anemia in end-stage renal disease currently on erythropoietin 10,000 Secondary hyperparathyroidism: Check phosphorus and PTH level periodically Avoid excessive narcotics Discussed about gastroparesis diet Diabetes mellitus type 2 very poorly controlled Patient does need follow-up labs which will be ordered today We'll continue to follow and make recommendation from renal standpoint Objective - Vital Signs Vital signs: Vital Signs - 12hr 01/14/19 01/14/19 01/15/19 21:50 22:47 04:51 Temperature 98.7 F 98.7 F Pulse Rate 115 H 114 H Respiratory 20 20 Rate Blood Pressure 162/89 150/93 O2 Sat by Pulse 96 97 97 Oximetry - Lab 01/12/19 11:42 01/12/19 11:42 Most recent lab results Calcium 9.1 mg/dL (8.4-10.2) 01/12/19 11:42 Medications & Allergies - Medications Allergies/Adverse Reactions: Allergies cefazolin [From Anc] Allergy (Verified 07/21/18 13:02) Vomiting shellfish derived Allergy (Verified 06/08/18 15:09) Anaphylaxis iodine Adverse Reaction (Severe, Verified 06/08/18 15:09) Vomiting IV dye Adverse Reaction (Severe, Uncoded 04/28/18 08:49) Vomiting Home Medications: Home Medications Medication Instructions Recorded Confirmed Last Taken Type Insulin Glargine [Lantus VIAL] 30 units SQ QHS #1 mo 02/05/18 01/12/19 09/21/18 Rx 15units Insulin Aspart [NovoLOG Flexpen] 0 units SQ AC PRN 03/03/18 01/12/19 09/22/18 History 2units Lisinopril [Zestril] 5 mg PO QDAY 01/12/19 01/12/19 Unknown History Active Medications: Generic Name Dose Route Start Last Admin Trade Name Freq PRN Reason Stop Dose Admin Acetaminophen 650 mg 01/12/19 15:28 Tylenol PO Q4H PRN Pain MILD(1-3)/Fever >100.5/SOARES Albuterol 2.5 mg 01/12/19 15:28 01/14/19 09:14 Proventil IH 2.5 mg Q4HRT PRN Administration Shortness Of Breath Clonidine HCl 0.3 mg 01/14/19 10:36 Catapres-Tts Patch TD Sa SANDRINE Dextrose 50 ml 01/12/19 15:37 D50w (25gm) Syringe IV PRN PRN Hypoglycemia Epoetin Pernell 10,000 unit 01/13/19 00:27 01/13/19 14:30 Procrit IV 10,000 unit MARI PRN Administration hemodialysis Hydralazine HCl 10 mg 01/12/19 23:50 01/14/19 06:46 Apresoline IV 10 mg Q6H PRN Administration Hypertension Hydromorphone HCl 0.25 mg 01/12/19 18:26 01/15/19 06:04 Dilaudid IV 0.25 mg Q3H PRN Administration Pain , Severe (7-10) Sodium Chloride 100 mls @ 999 mls/hr 01/13/19 00:27 Nacl 0.9% IV MARI PRN Hypotension Sodium Chloride 1,000 mls @ 125 mls/hr 01/14/19 11:00 01/15/19 00:16 Nacl 0.45% 1000 Ml IV 125 mls/hr DIRECT SANDRINE Administration Insulin Glargine 20 units 01/15/19 10:00 Lantus SUB-Q QAM SANDRINE Insulin Human Lispro 0 unit 01/12/19 18:00 01/15/19 06:08 Humalog SUB-Q 8 unit Q6HR SANDRINE Administration Protocol Lisinopril 40 mg 01/14/19 10:36 Zestril PO QDAY SANDRINE Lorazepam 1 mg 01/12/19 18:26 Ativan IV Q4H PRN Agitation Nitroglycerin 0.4 mg 01/12/19 15:28 Nitrostat SL Q5M PRN Chest Pain Ondansetron HCl 4 mg 01/12/19 23:48 01/14/19 21:24 Zofran IV 4 mg Q6H PRN Administration Nausea And Vomiting Sodium Chloride 10 ml 01/12/19 22:00 01/14/19 21:25 Sodium Chloride Flush Syringe 10 Ml IV 10 ml BID SANDRINE Administration Sodium Chloride 10 ml 01/12/19 15:28 Sodium Chloride Flush Syringe 10 Ml IV PRN PRN LINE FLUSH
[2019-01-15] MEDS: ZESTRIL PO SCH (10:12)
[2019-01-15] MEDS: SODIUM CHLORIDE FLUSH SYRINGE 10 ML IV SCH ×2 (10:13→22:00)
[2019-01-15 11:22] LABS: Basophils % (Auto) 0.2 % (0.0-1.8); Hematocrit 33.1 % (35.5-45.6); Hemoglobin 10.4 gm/dl (11.8-15.2); Lymphocytes # (Auto) 1.3 K/mm3 (1.2-5.4); Lymphocytes % (Auto) 7.8 % (13.4-35.0); Mean Corpuscular HGB Conc 32 % (32-34); Mean Corpuscular Volume 92 fl (84-94); Monocytes # (Auto) 1.2 K/mm3 (0.0-0.8); Monocytes % (Auto) 7.1 % (0.0-7.3); Platelet Count 163 K/mm3 (140-440); Red Cell Distribution Width 15.6 % (13.2-15.2)
[2019-01-15 11:44] LABS: Albumin 4.4 g/dL (3.9-5); Calcium 7.9 mg/dL (8.4-10.2)
[2019-01-15] MEDS: LANTUS SUB-Q SCH (12:31)
[2019-01-15] MEDS: APRESOLINE IV PRN (14:40)
--- NOTE | 2019-01-15 14:59 | Progress Note ---
Assessment and Plan (1) ESRD (end stage renal disease) on dialysis Current Visit: Yes Status: Acute Plan to address problem: Nephrology consulted in dialysis, dialysis as per renal team. strict I/O, monitor uop q shift, avoid nephrotoxic agents. (2) Chest pain Current Visit: Yes Status: Acute Qualifiers: Ischemic chest pain type: stable angina pectoris Plan to address problem: Troponins plateaued Patient had Lexiscan and echocardiogram the [facility] Dr. Jimenez to access the records As per Barbara Stress and Echo were normal in 2014 but will do stress and ECHO tomorrow (3) Diabetic gastroparesis Current Visit: Yes Status: Acute Plan to address problem: Clear liquids started Protonix Gi consulted 4)Type 2 diabetes SSI (5) DVT prophylaxis Current Visit: Yes Status: Acute Plan to address problem: SCD to BLE while in bed. Subjective Date of service: 01/15/19 Principal diagnosis: ESRD on HD on T, TH, Sat. Interval history: still vomiting an having abdominal pain. No chest pain Objective - Constitutional Vitals: Vital Signs - 12hr 01/15/19 01/15/19 01/15/19 04:51 08:32 08:36 Temperature 98.7 F Pulse Rate 114 H Respiratory 20 Rate Blood Pressure 150/93 169/104 171/99 O2 Sat by Pulse 97 Oximetry 01/15/19 01/15/19 01/15/19 08:50 08:51 08:52 Temperature Pulse Rate Respiratory Rate Blood Pressure 120/68 129/76 133/81 O2 Sat by Pulse Oximetry 01/15/19 01/15/19 01/15/19 08:53 08:54 08:55 Temperature Pulse Rate Respiratory Rate Blood Pressure 133/79 129/79 136/82 O2 Sat by Pulse Oximetry 01/15/19 01/15/19 01/15/19 09:05 10:12 13:40 Temperature 98.1 F Pulse Rate 116 H Respiratory 15 Rate Blood Pressure 136/82 160/92 172/98 O2 Sat by Pulse 95 Oximetry 01/15/19 14:40 Temperature Pulse Rate Respiratory Rate Blood Pressure 172/98 O2 Sat by Pulse Oximetry General appearance: Present: no acute distress, well-nourished - EENT Eyes: PERRL, EOM intact Ears: bilateral: normal - Neck Neck: supple, normal ROM - Respiratory Respiratory effort: normal Respiratory: bilateral: CTA - Cardiovascular Rhythm: regular Heart Sounds: Present: S1 & S2. Absent: gallop, rub Extremities: pulses intact, No edema, normal color, Full ROM - Gastrointestinal General gastrointestinal: Present: soft, non-tender, non-distended, normal bowel sounds - Integumentary Integumentary: clear, warm, dry - Musculoskeletal Musculoskeletal: 1, strength equal bilaterally - Neurologic Neurologic: moves all extremities - Psychiatric Psychiatric: memory intact, appropriate mood/affect, intact judgment & insight - Labs CBC & Chem 7: 01/15/19 10:35 01/15/19 10:35 Labs: Abnormal lab results 01/14/19 01/14/19 01/15/19 Range/Units 17:20 23:43 10:35 WBC 16.9 H (4.5-11.0) K/mm3 RBC 3.60 L (3.65-5.03) M/mm3 Hgb 10.4 L (11.8-15.2) gm/dl Hct 33.1 L (35.5-45.6) % RDW 15.6 H (13.2-15.2) % Lymph % (Auto) 7.8 L (13.4-35.0) % [place] # 1.2 H (0.0-0.8) K/mm3 Seg Neutrophils % 84.9 H (40.0-70.0) % Seg Neutrophils # 14.3 H (1.8-7.7) K/mm3 Chloride (98-107) mmol/L BUN (9-20) mg/dL Creatinine (0.8-1.5) mg/dL Glucose (75-100) mg/dL POC Glucose 415 H 354 H (70-105) Calcium (8.4-10.2) mg/dL Phosphorus (2.5-4.5) mg/dL PTH Intact (15-65) pg/mL 01/15/19 01/15/19 Range/Units 10:35 10:35 WBC (4.5-11.0) K/mm3 RBC (3.65-5.03) M/mm3 Hgb (11.8-15.2) gm/dl Hct (35.5-45.6) % RDW (13.2-15.2) % Lymph % (Auto) (13.4-35.0) % [place] # (0.0-0.8) K/mm3 Seg Neutrophils % (40.0-70.0) % Seg Neutrophils # (1.8-7.7) K/mm3 Chloride 95.6 L (98-107) mmol/L BUN 49 H (9-20) mg/dL Creatinine 10.3 H (0.8-1.5) mg/dL Glucose 311 H (75-100) mg/dL POC Glucose (70-105) Calcium 7.9 L (8.4-10.2) mg/dL Phosphorus 5.80 H (2.5-4.5) mg/dL PTH Intact 661.6 H (15-65) pg/mL
[2019-01-15] MEDS: ZOFRAN IV PRN (20:33)
[2019-01-16] MEDS: HumaLOG SUB-Q SCH ×4 (01:11→18:46)
[2019-01-16] MEDS: APRESOLINE IV PRN (01:13)
--- NOTE | 2019-01-16 01:17 | Treadmill Report ---
THALLIUM STRESS TEST LEFT VENTRICLE: Left ventricular chamber size is within normal. Perfusion study demonstrates mild diaphragmatic attenuation artifact, otherwise homogeneous uptake of the tracer in all segments, no significant perfusion defects identified. Gated analysis demonstrates normal left ventricular systolic function, ejection fraction 75%. CONCLUSION: Normal myocardial perfusion study. JOB# [id number] CA/NTS
[2019-01-16] MEDS: NACL 0.45% 1000 ML 1,000 ML IV SCH (01:38)
[2019-01-16] MEDS: DILAUDID IV PRN ×2 (03:30→09:03)
[2019-01-16] MEDS: ZOFRAN IV PRN (03:30)
[2019-01-16 05:18] LABS: Basophils # (Auto) 0.1 K/mm3 (0.0-0.1); Basophils % (Auto) 0.5 % (0.0-1.8); Eosinophils % (Auto) 0.1 % (0.0-4.3); Hematocrit 30.9 % (35.5-45.6); Lymphocytes # (Auto) 1.9 K/mm3 (1.2-5.4); Lymphocytes % (Auto) 12.2 % (13.4-35.0); Mean Corpuscular HGB Conc 32 % (32-34); Mean Corpuscular Volume 90 fl (84-94); Monocytes # (Auto) 1.3 K/mm3 (0.0-0.8); Monocytes % (Auto) 8.6 % (0.0-7.3); Platelet Count 181 K/mm3 (140-440); Red Blood Count 3.43 M/mm3 (3.65-5.03); Red Cell Distribution Width 15.3 % (13.2-15.2)
[2019-01-16 05:50] LABS: Calcium 7.3 mg/dL (8.4-10.2)
[2019-01-16] MEDS: ZESTRIL PO SCH (09:04)
[2019-01-16] MEDS: SODIUM CHLORIDE FLUSH SYRINGE 10 ML IV SCH ×2 (09:05→21:48)
[2019-01-16] MEDS: LANTUS SUB-Q SCH (09:05)
--- NOTE | 2019-01-16 09:11 | Progress Note ---
Subjective Principal diagnosis: ESRD on HD on , , Tue. Interval history: Patient was seen today for follow-up on multiple renal related issues Currently on dialysis on Tuesday Blood pressure is much better controlled now Abdominal symptoms improving Vitals labs intake output medications were reviewed Social history: Reviewed Allergies: Reviewed Family history: Reviewed Physical examination HEENT: Oral mucosa moist no pallor or icterus Neck: Supple no JVD Chest: Clear to auscultation anteriorly CVS: Regular rate and rhythm S1 and S2 heard Abdomen: Soft nontender no suprapubic masses no organomegaly appreciable Extremity: Dry skin less than 1+ peripheral edema Musculoskeletal: No joint effusion noted in knees and ankle Neurological: Alert awake Dermatology: No petechial rashes Psychiatry: No evidence of any agitation and aggression noted Assessment and plan End-stage renal disease: patient was also seen and supervised on hemodialysis Ultrafiltration goal was reduced today Continue with Tuesday Gastroparesis diet was discussed with patient Continue with hemodialysis treatment 3 times a week Ultrafiltration less than 1 L and to be adjusted as needed Anemia: Currently on erythropoietin 10,000 unit daily Admitted with the gastroparesis flare with history of poorly controlled diabetes Has off from 01/16/2019 patient's hemoglobin is 10.0 platelet count 181,000 potassium 3.7 calcium is 7.3 phosphorus 5.8, patient will need to take calcium acetate 2 capsules 3 times a day, will also start him on oral Zemplar that can be given during hospitalization Patient will get Hectorol in the outpatient setting on hemodialysis We'll continue to follow and make recommendation from renal standpoint Objective - Vital Signs Vital signs: Vital Signs - 12hr 01/15/19 01/15/19 01/15/19 22:00 23:31 23:40 Temperature 98.0 F Pulse Rate 113 H 109 H Respiratory 18 20 19 Rate Blood Pressure 172/89 O2 Sat by Pulse 98 Oximetry 01/16/19 01/16/19 01/16/19 00:10 01:13 03:30 Temperature Pulse Rate 109 H Respiratory 16 18 Rate Blood Pressure 172/89 O2 Sat by Pulse Oximetry 01/16/19 01/16/19 01/16/19 04:00 05:46 09:04 Temperature 98.0 F Pulse Rate 111 H Respiratory 18 20 Rate Blood Pressure 136/79 134/72 O2 Sat by Pulse 95 Oximetry - Lab 01/16/19 04:59 03/12/19 04:59 Most recent lab results Calcium 7.3 mg/dL (8.4-10.2) L 01/16/19 04:59 Phosphorus 5.80 mg/dL (2.5-4.5) H 01/15/19 10:35 Medications & Allergies - Medications Allergies/Adverse Reactions: Allergies cefazolin [From Anc] Allergy (Verified 07/21/18 13:02) Vomiting shellfish derived Allergy (Verified 06/08/18 15:09) Anaphylaxis iodine Adverse Reaction (Severe, Verified 06/08/18 15:09) Vomiting IV dye Adverse Reaction (Severe, Uncoded 04/28/18 08:49) Vomiting Home Medications: Home Medications Medication Instructions Recorded Confirmed Last Taken Type Insulin Glargine [Lantus VIAL] 30 units SQ QHS #1 mo 02/05/18 01/12/19 09/21/18 Rx 15units Insulin Aspart [NovoLOG Flexpen] 0 units SQ AC PRN 03/03/18 01/12/19 09/22/18 History 2units Lisinopril [Zestril] 5 mg PO QDAY 01/12/19 01/12/19 Unknown History Active Medications: Generic Name Dose Route Start Last Admin Trade Name Freq PRN Reason Stop Dose Admin Acetaminophen 650 mg 01/12/19 15:28 Tylenol PO Q4H PRN Pain MILD(1-3)/Fever >100.5/SOARES Albuterol 2.5 mg 01/12/19 15:28 01/14/19 09:14 Proventil IH 2.5 mg Q4HRT PRN Administration Shortness Of Breath Clonidine HCl 0.3 mg 01/14/19 10:36 Catapres-Tts Patch TD Sa SANDRINE Dextrose 50 ml 01/12/19 15:37 D50w (25gm) Syringe IV PRN PRN Hypoglycemia Epoetin Pernell 10,000 unit 01/13/19 00:27 01/13/19 14:30 Procrit IV 10,000 unit MARI PRN Administration hemodialysis Hydralazine HCl 10 mg 01/12/19 23:50 01/16/19 01:13 Apresoline IV 10 mg Q6H PRN Administration Hypertension Hydromorphone HCl 0.25 mg 01/12/19 18:26 01/16/19 09:03 Dilaudid IV 0.25 mg Q3H PRN Administration Pain , Severe (7-10) Sodium Chloride 100 mls @ 999 mls/hr 01/13/19 00:27 Nacl 0.9% IV MARI PRN Hypotension Sodium Chloride 1,000 mls @ 125 mls/hr 01/14/19 11:00 01/16/19 01:18 Nacl 0.45% 1000 Ml IV Infused DIRECT SANDRINE Infusion Insulin Glargine 20 units 01/15/19 10:00 01/16/19 09:05 Lantus SUB-Q 20 units QAM SANDRINE Administration Insulin Human Lispro 0 unit 01/12/19 18:00 01/16/19 06:02 Humalog SUB-Q 4 unit Q6HR SANDRINE Administration Protocol Lisinopril 40 mg 01/14/19 10:36 01/16/19 09:04 Zestril PO 40 mg QDAY SANDRINE Administration Lorazepam 1 mg 01/12/19 18:26 Ativan IV Q4H PRN Agitation Nitroglycerin 0.4 mg 01/12/19 15:28 Nitrostat SL Q5M PRN Chest Pain Ondansetron HCl 4 mg 01/12/19 23:48 01/16/19 03:30 Zofran IV 4 mg Q6H PRN Administration Nausea And Vomiting Sodium Chloride 10 ml 01/12/19 22:00 01/16/19 09:05 Sodium Chloride Flush Syringe 10 Ml IV 10 ml BID SANDRINE Administration Sodium Chloride 10 ml 01/12/19 15:28 Sodium Chloride Flush Syringe 10 Ml IV PRN PRN LINE FLUSH
--- NOTE | 2019-01-16 09:36 | Progress Note ---
Assessment and Plan Severe gastroparesis End-stage renal disease on hemodialysis Hypertension - resistant and chronically uncontrolled Diabetes Chronic elevated troponin cardiac cath 04/2015 documents no significant CAD. no ischemia on MPI 11/2017. left ventricle systolic function was normal with ejection fraction 60% on an echocardiogram 07/2018. normal perfusion MPI this admission. Conservative cardiac management. Subjective Date of service: 01/16/19 Principal diagnosis: ESRD on HD on T, TH, Sat. Interval history: Patient is resting in bed with his eyes closed. Objective Vital Signs Temp Pulse Resp Resp BP Pulse Ox 01/16/19 09:04 134/72 01/16/19 05:46 98.0 F 111 H 20 136/79 95 01/16/19 04:00 18 01/16/19 03:30 18 01/16/19 01:13 109 H 172/89 01/16/19 00:10 16 01/15/19 23:40 19 01/15/19 23:31 98.0 F 109 H 20 172/89 98 01/15/19 22:00 113 H 18 01/15/19 21:04 18 01/15/19 20:34 19 01/15/19 20:28 98 01/15/19 19:00 19 01/15/19 17:07 98.2 F 114 H 16 146/79 98 01/15/19 14:40 172/98 01/15/19 13:40 98.1 F 116 H 15 172/98 95 01/15/19 10:12 160/92 01/15/19 10:00 97 - Physical Examination General: No Apparent Distress Cardiac: Positive: Tachycardia - Labs and Meds Cardiac Enzymes 01/15/19 Range/Units 10:35 AST 17 (5-40) units/L CBC 01/15/19 01/16/19 Range/Units 10:35 04:59 WBC 16.9 H 15.3 H (4.5-11.0) K/mm3 RBC 3.60 L 3.43 L (3.65-5.03) M/mm3 Hgb 10.4 L 10.0 L (11.8-15.2) gm/dl Hct 33.1 L 30.9 L (35.5-45.6) % Plt Count 163 181 (140-440) K/mm3 Lymph # 1.3 1.9 (1.2-5.4) K/mm3 [place] # 1.2 H 1.3 H (0.0-0.8) K/mm3 Eos # 0.0 0.0 (0.0-0.4) K/mm3 Baso # 0.0 0.1 (0.0-0.1) K/mm3 Comprehensive Metabolic Panel 01/15/19 01/16/19 Range/Units 10:35 04:59 Sodium 138 D 138 (137-145) mmol/L Potassium 4.0 3.7 (3.6-5.0) mmol/L Chloride 95.6 L 92.8 L (98-107) mmol/L Carbon Dioxide 23 23 (22-30) mmol/L BUN 49 H 58 H (9-20) mg/dL Creatinine 10.3 H 11.0 H (0.8-1.5) mg/dL Glucose 311 H 272 H (75-100) mg/dL Calcium 7.9 L 7.3 L (8.4-10.2) mg/dL AST 17 (5-40) units/L ALT 8 (7-56) units/L Alkaline Phosphatase 98 (35-129) units/L Total Protein 7.8 (6.3-8.2) g/dL Albumin 4.4 (3.9-5) g/dL
--- NOTE | 2019-01-16 11:51 | Gastroenterology Consultation ---
History of Present Illness - Reason for Consult Consult date: 01/16/19 gastroparesis Requesting physician: MIGUEL MONSON - History of Present Illness Patient is a 38 y/o male with PMH of DM (uncontrolled), gastroparesis, ESRD on HD, HTN, TIA, VA, Migraine SOARES, and PE who presented to ED with c/o CP, which is now improved and cardiac work up negative, with associated N/V and mid abdominal pain. Abd CT on admission was negative for any acute process. GI has been consu lted for gastroparesis. The patient is previously known to our service from multiple previous hospitalizations for similar symptoms. He has undergone multiple prior EGDs with last EGD on 12/21 and 12/30 last year (2017) at [facility] by Dr. Escalante/Mayco that showed retained food with initial scope and gastritis with repeat scope. He also had a colonoscopy at that time as well for change in bowel habits that showed mild diverticulosis and small internal hemorrhoids. According to chart review, he had a previous work up for GB disease as well with HIDA showing a decrease in EF with recommendation for CCY, however patient was medically unable to have surgery at that time due to uncontrolled blood pressure . This morning patient was resting in bed receiving dialysis w/o acute distress. Reports continued abd pain and N/V with non-bloody emesis. His weight has remained stable. Denies fever, SOB, dysphagia, odynophagia, signs of bleeding or LGI symptoms such as diarrhea or constipation. Past History Past Medical History: other (as per HPI) Past Surgical History: Other (AVF, Vas Cath, ) Social history: . denies: smoking, alcohol abuse, prescription drug abuse Family history: diabetes, hypertension Medications and Allergies Allergies Allergy/AdvReac Type Severity Reaction Status Date / Time cefazolin [From Anc] Allergy Vomiting Verified 07/21/18 13:02 shellfish derived Allergy Anaphylaxis Verified 06/08/18 15:09 iodine AdvReac Severe Vomiting Verified 06/08/18 15:09 IV dye AdvReac Severe Vomiting Uncoded 04/28/18 08:49 Home Medications Medication Instructions Recorded Confirmed Last Taken Type Insulin Glargine [Lantus VIAL] 30 units SQ QHS #1 mo 02/05/18 01/12/19 09/21/18 Rx 15units Insulin Aspart [NovoLOG Flexpen] 0 units SQ AC PRN 03/03/18 01/12/19 09/22/18 History 2units Lisinopril [Zestril] 5 mg PO QDAY 01/12/19 01/12/19 Unknown History Active Meds: Active Medications Acetaminophen (Tylenol) 650 mg PO Q4H PRN PRN Reason: Pain MILD(1-3)/Fever >100.5/SOARES Albuterol (Proventil) 2.5 mg IH Q4HRT PRN PRN Reason: Shortness Of Breath Last Admin: 01/14/19 09:14 Dose: 2.5 mg Documented by: Calcium Acetate (Phoslo) 667 mg PO TID SANDRINE Clonidine HCl (Catapres-Tts Patch) 0.3 mg TD Sa [facility] Dextrose (D50w (25gm) Syringe) 50 ml IV PRN PRN PRN Reason: Hypoglycemia Epoetin Pernell (Procrit) 10,000 unit IV MARI PRN PRN Reason: hemodialysis Last Admin: 01/13/19 14:30 Dose: 10,000 unit Documented by: Hydralazine HCl (Apresoline) 10 mg IV Q6H PRN PRN Reason: Hypertension Last Admin: 01/16/19 01:13 Dose: 10 mg Documented by: Hydromorphone HCl (Dilaudid) 0.25 mg IV Q3H PRN PRN Reason: Pain , Severe (7-10) Last Admin: 01/16/19 09:03 Dose: 0.25 mg Documented by: Sodium Chloride (Nacl 0.9%) 100 mls @ 999 mls/hr IV MARI PRN PRN Reason: Hypotension Sodium Chloride (Nacl 0.45% 1000 Ml) 1,000 mls @ 125 mls/hr IV DIRECT SANDRINE Last Infusion: 01/16/19 01:18 Dose: Infused Documented by: Insulin Glargine (Lantus) 20 units SUB-Q QAM [facility] Last Admin: 01/16/19 09:05 Dose: 20 units Documented by: Insulin Human Lispro (Humalog) 0 unit SUB-Q Q6HR [facility]; Protocol Last Admin: 01/16/19 06:02 Dose: 4 unit Documented by: Lisinopril (Zestril) 40 mg PO QDAY [facility] Last Admin: 01/16/19 09:04 Dose: 40 mg Documented by: Lorazepam (Ativan) 1 mg IV Q4H PRN PRN Reason: Agitation Nitroglycerin (Nitrostat) 0.4 mg SL Q5M PRN PRN Reason: Chest Pain Ondansetron HCl (Zofran) 4 mg IV Q6H PRN PRN Reason: Nausea And Vomiting Last Admin: 01/16/19 03:30 Dose: 4 mg Documented by: Paricalcitol (Zemplar) 2 mcg PO MoWeFr SANDRINE Sodium Chloride (Sodium Chloride Flush Syringe 10 Ml) 10 ml IV BID SANDRINE Last Admin: 01/16/19 09:05 Dose: 10 ml Documented by: Sodium Chloride (Sodium Chloride Flush Syringe 10 Ml) 10 ml IV PRN PRN PRN Reason: LINE FLUSH medications reviewed/updated as required Review of Systems - Review of Systems All systems: negative Gastrointestinal: abdominal pain, nausea, vomiting Exam - Constitutional Vital Signs: Temp Pulse Resp BP Pulse Ox 98.0 F 111 H 20 134/72 95 01/16/19 05:46 01/16/19 05:46 01/16/19 05:46 01/16/19 09:04 01/16/19 05:46 General appearance: no acute distress - Respiratory Respiratory: bilateral: CTA - Cardiovascular Rhythm: other (tachycardia) - Gastrointestinal General gastrointestinal: Present: soft, non-tender, non-distended, normal bowel sounds - Neurologic Neurological: alert and oriented x3 - Labs CBC & Chem 7: 01/16/19 04:59 01/16/19 04:59 Lab Results: Laboratory Results - last 24 hr 01/16/19 01/16/19 04:59 04:59 WBC 15.3 H RBC 3.43 L Hgb 10.0 L Hct 30.9 L MCV 90 MCH 29 MCHC 32 RDW 15.3 H Plt Count 181 Lymph % (Auto) 12.2 L [place] % (Auto) 8.6 H Eos % (Auto) 0.1 Baso % (Auto) 0.5 Lymph # 1.9 [place] # 1.3 H Eos # 0.0 Baso # 0.1 Seg Neutrophils % 78.6 H Seg Neutrophils # 12.0 H Sodium 138 Potassium 3.7 Chloride 92.8 L Carbon Dioxide 23 Anion Gap 26 BUN 58 H Creatinine 11.0 H Estimated GFR 6 BUN/Creatinine Ratio 5 Glucose 272 H Calcium 7.3 L Assessment and Plan 1.N/V 2.Abdominal Pain 3.H/o gastroparesis 4.DM (uncontrolled) 5.ESRD on HD -afebrile -WBC 15.3 -LFTs WNL -abd CT w/o acute process -last EGD 12/2017 with initial scope showing retained food c/w gastroparesis and repeat showing gastritis -etiology-most likely 2/2 diabetic gastroparesis with possible component of biliary dysfunction -no plan for repeat scope at this time -decrease diet to clear liquids -abd U/S -start on daily PPI -optimize glycemic control -avoid narcotics -constinue supportive care -consider trial of erythromycin based on progress (according to chart review, soares s tried Reglan in the past with no improvement) -further recommendations to follow
[2019-01-16] MEDS ORDERED: NACL 0.9 (PRIMING MACHINE ONLY DIALYSIS) MC ONE (13:23)
[2019-01-16] MEDS: PROCRIT IV PRN (13:30)
--- NOTE | 2019-01-16 15:20 | Progress Note ---
Assessment and Plan Assessment and plan: Patient is a 38 YO Male with ESRD on HD (M,W,F), HTN, TIA, DM, Gastroparesis, [place], Migraine SOARES, PE, presents to ED with chest pains, intractable n/v. ESRD (end stage renal disease) on dialysis, Nephrology consulted in dialysis, dialysis as per renal team. strict I/O, monitor uop q shift, avoid nephrotoxic agents. SIRS with organ dysfunction, poa Hypertension urgency: use prn iv hydralazine Chest pain, stress test negative, atypical, GERD/gastritis related most likely: Cardiology has seen and evaluated Diabetic gastroparesis flare: add reglan, Boost shakes supplement and downgrade diet Anticipate d/c tomorrow once n/v stops and able to tolerate any diet History Interval history: Patient was seen and examined. Follow-up on current diagnosis of chest pain, abd pain n/v still present. Overnight uneventful. Patient denies any chest pain, shortness breath or severe headaches. Imaging, nursing note, chart, labs and old chart reviewed. Discussed with patient. Hospitalist Physical - Physical exam Narrative exam: GEN: WDWN, NAD, Awake, Alert, Orientated HEENT: NCAT, EOMI, PERRL, OP Clear NECK: supple, no adenopathy, no thyromegaly, no JVD CVS/HEART: RRR, normal S1S2, pulses present bilaterally CHEST/LUNGS: CTA B, Symmetrical chest expansion, good air entry bilaterally GI/Abdomen: soft, mild epigastric tenderness, good bowel sounds, no guarding or rebound /Bladder: no suprapubic tenderness, no CVA or paraspinal tenderness EXT/Skin: no c/c/e, no obvious rash MSK: FROM x 4 Neuro: CN 2-12 grossly intact, no new focal deficits Psych: calm - Constitutional Vitals: Temp Pulse Resp BP Pulse Ox 98.0 F 111 H 20 134/72 95 01/16/19 05:46 01/16/19 05:46 01/16/19 05:46 01/16/19 09:04 01/16/19 05:46 General appearance: Present: no acute distress, well-nourished Results - Labs CBC & Chem 7: 01/16/19 04:59 01/16/19 04:59 Labs: Laboratory Last Values WBC 15.3 K/mm3 (4.5-11.0) H 01/16/19 04:59 RBC 3.43 M/mm3 (3.65-5.03) L 01/16/19 04:59 Hgb 10.0 gm/dl (11.8-15.2) L 01/16/19 04:59 Hct 30.9 % (35.5-45.6) L 01/16/19 04:59 MCV 90 fl (84-94) 01/16/19 04:59 MCH 29 pg (28-32) 01/16/19 04:59 MCHC 32 % (32-34) 01/16/19 04:59 RDW 15.3 % (13.2-15.2) H 01/16/19 04:59 Plt Count 181 K/mm3 (140-440) 01/16/19 04:59 Lymph % (Auto) 12.2 % (13.4-35.0) L 01/16/19 04:59 [place] % (Auto) 8.6 % (0.0-7.3) H 01/16/19 04:59 Eos % (Auto) 0.1 % (0.0-4.3) 01/16/19 04:59 Baso % (Auto) 0.5 % (0.0-1.8) 01/16/19 04:59 Lymph # 1.9 K/mm3 (1.2-5.4) 01/16/19 04:59 [place] # 1.3 K/mm3 (0.0-0.8) H 01/16/19 04:59 Eos # 0.0 K/mm3 (0.0-0.4) 01/16/19 04:59 Baso # 0.1 K/mm3 (0.0-0.1) 01/16/19 04:59 Seg Neutrophils % 78.6 % (40.0-70.0) H 01/16/19 04:59 Seg Neutrophils # 12.0 K/mm3 (1.8-7.7) H 01/16/19 04:59 PT 15.0 Sec. (12.2-14.9) H 01/12/19 11:42 INR 1.11 (0.87-1.13) 01/12/19 11:42 APTT 25.1 Sec. (24.2-36.6) 01/12/19 11:42 D-Dimer 723.05 ng/mlDDU (0-234) H 01/12/19 11:42 VBG pH 7.421 (7.320-7.420) H 01/12/19 13:35 Sodium 138 mmol/L (137-145) 01/16/19 04:59 Potassium 3.7 mmol/L (3.6-5.0) 01/16/19 04:59 Chloride 92.8 mmol/L (98-107) L 01/16/19 04:59 Carbon Dioxide 23 mmol/L (22-30) 01/16/19 04:59 Anion Gap 26 mmol/L 01/16/19 04:59 BUN 58 mg/dL (9-20) H 01/16/19 04:59 Creatinine 11.0 mg/dL (0.8-1.5) H 01/16/19 04:59 Estimated GFR 6 ml/min 01/16/19 04:59 BUN/Creatinine Ratio 5 % 01/16/19 04:59 Glucose 272 mg/dL (75-100) H 01/16/19 04:59 POC Glucose 354 (70-105) H 01/14/19 23:43 Calcium 7.3 mg/dL (8.4-10.2) L 01/16/19 04:59 Phosphorus 5.80 mg/dL (2.5-4.5) H 01/15/19 10:35 Total Bilirubin 0.60 mg/dL (0.1-1.2) 01/15/19 10:35 AST 17 units/L (5-40) 01/15/19 10:35 ALT 8 units/L (7-56) 01/15/19 10:35 Alkaline Phosphatase 98 units/L (35-129) 01/15/19 10:35 Troponin T 0.520 ng/mL (0.00-0.029) H* 01/12/19 21:16 Total Protein 7.8 g/dL (6.3-8.2) 01/15/19 10:35 Albumin 4.4 g/dL (3.9-5) 01/15/19 10:35 Albumin/Globulin Ratio 1.3 % 01/15/19 10:35 Triglycerides 238 mg/dL (2-149) H 01/12/19 11:42 Cholesterol 174 mg/dL (50-199) 01/12/19 11:42 LDL Cholesterol Direct 114 mg/dL (50-130) 01/12/19 11:42 HDL Cholesterol 32 mg/dL (40-59) L 01/12/19 11:42 Cholesterol/HDL Ratio 5.43 % 01/12/19 11:42 PTH Intact 661.6 pg/mL (15-65) H 01/15/19 10:35
[2019-01-16] MEDS: PROTONIX PO SCH (15:34)
[2019-01-16] MEDS: PHOSLO PO SCH ×2 (15:34→21:45)
[2019-01-16] MEDS ORDERED: REGLAN PO SCH (16:30)
[2019-01-16] MEDS: REGLAN PO SCH ×2 (18:50→21:45)
--- NOTE | 2019-01-16 21:21 | Ultrasound Report ---
PROCEDURE: US ABDOMEN COMPLETE TECHNIQUE: Routine imaging was obtained of the abdomen. HISTORY: abdominal pain, N/V COMPARISONS: CT scan of abdomen 01/12/2019 FINDINGS: The gallbladder is normal in size and reveals multiple stones near the neck of the gallbladder. There are no secondary signs of acute cholecystitis. The liver is normal in size and echotexture. The comm on bile duct is normal caliber at 2.8 mm. The kidneys are normal in size contour and echotexture. The right kidney measures 9.6 cm in length with the left measuring 10.4 cm in length. The spleen is norm al in size and echotexture measuring 7.2 x 4.2 x 4 cm. The pancreas is not well seen because of bowel gas. Free fluid is not identified. IMPRESSION: Gallstones. No secondary signs of acute cholecystis.. This document is electronically signed by Ken Guerra MD., January 16 2019 09:19:35 PM ET
[2019-01-16] MEDS ORDERED: BENADRYL IV PRN (21:50)
[2019-01-17 05:47] LABS: Hematocrit 31.6 % (35.5-45.6); Hemoglobin 10.4 gm/dl (11.8-15.2); Mean Corpuscular HGB Conc 33 % (32-34); Mean Corpuscular Volume 90 fl (84-94); Red Blood Count 3.51 M/mm3 (3.65-5.03); Red Cell Distribution Width 15.2 % (13.2-15.2)
[2019-01-17 05:50] LABS: Platelet Count 173 K/mm3 (140-440)
[2019-01-17 05:53] LABS: Calcium 7.7 mg/dL (8.4-10.2)
[2019-01-17] MEDS: HumaLOG SUB-Q SCH ×4 (06:20→18:00)
[2019-01-17] MEDS: REGLAN PO SCH ×4 (08:11→22:35)
[2019-01-17] MEDS: PHOSLO PO SCH ×3 (08:12→22:35)
[2019-01-17] MEDS ORDERED: ZEMPLAR PO SCH (09:11)
--- NOTE | 2019-01-17 09:25 | Progress Note ---
Subjective Principal diagnosis: ESRD on HD on , , Tue. Interval history: Patient was seen today for follow-up on multiple renal related issues Had a low-grade fever Tolerated dialysis fairly well Vitals labs intake output medications were reviewed Social history: Reviewed Allergies: Reviewed Family history: Reviewed Physical examination HEENT: Oral mucosa moist no pallor or icterus Neck: Supple no JVD Chest: Clear to auscultation anteriorly CVS: Regular rate and rhythm S1 and S2 heard Abdomen: Soft nontender no suprapubic masses no organomegaly appreciable Extremity: Dry skin less than 1+ peripheral edema Musculoskeletal: No joint effusion noted in knees and ankle Neurological: Alert awake Dermatology: No petechial rashes Psychiatry: No evidence of any agitation and aggression noted Assessment and plan End-stage renal disease: Patient is currently in maintenance hemodialysis and will need to continue with hemodialysis treatment 3 times per week, Tuesday and Tuesday. We'll change dialysis prescription reduced blood flow increase dialysate flow rate reduce ultrafiltration goal Abdominal ultrasonogram shows evidence of gallstone but no cholecystitis Low-grade fever to monitor: Patient otherwise is feeling well leukocytosis is already improving, suggested incentive spirometry Renal standpoint his potassium is 3.7 hemoglobin 10.4 sodium 135 blood sugar 238 Poorly controlled diabetes, Secondary hyperparathyroidism: Phosphorus 5.8 PTH 661 Avoid excessive narcotics Discussed about gastroparesis diet Diabetes mellitus type 2 very poorly controlled Patient does need follow-up labs which will be ordered today We'll continue to follow and make recommendation from renal standpoint Objective - Vital Signs Vital signs: Vital Signs - 12hr 01/17/19 05:13 Temperature 99.1 F Pulse Rate 105 H Respiratory 20 Rate Blood Pressure 149/100 O2 Sat by Pulse 93 Oximetry - Lab 01/17/19 04:53 01/17/19 04:53 Most recent lab results Calcium 7.7 mg/dL (8.4-10.2) L 01/17/19 04:53 Phosphorus 5.80 mg/dL (2.5-4.5) H 01/15/19 10:35 Medications & Allergies - Medications Allergies/Adverse Reactions: Allergies cefazolin [From Ancef] Allergy (Verified 07/21/18 13:02) Vomiting shellfish derived Allergy (Verified 06/08/18 15:09) Anaphylaxis iodine Adverse Reaction (Severe, Verified 06/08/18 15:09) Vomiting IV dye Adverse Reaction (Severe, Uncoded 04/28/18 08:49) Vomiting Home Medications: Home Medications Medication Instructions Recorded Confirmed Last Taken Type Insulin Glargine [Lantus VIAL] 30 units SQ QHS #1 mo 02/05/18 01/12/19 09/21/18 Rx 15units Insulin Aspart [NovoLOG Flexpen] 0 units SQ AC PRN 03/03/18 01/12/19 09/22/18 History 2units Lisinopril [Zestril] 5 mg PO QDAY 01/12/19 01/12/19 Unknown History Active Medications: Generic Name Dose Route Start Last Admin Trade Name Freq PRN Reason Stop Dose Admin Acetaminophen 650 mg 01/12/19 15:28 Tylenol PO Q4H PRN Pain MILD(1-3)/Fever >100.5/SOARES Albuterol 2.5 mg 01/12/19 15:28 01/14/19 09:14 Proventil IH 2.5 mg Q4HRT PRN Administration Shortness Of Breath Calcium Acetate 667 mg 01/16/19 14:00 01/17/19 08:12 Phoslo PO 667 mg TID SANDRINE Administration Clonidine HCl 0.3 mg 01/20/19 12:09 Catapres-Tts Patch TD Sa SANDRINE Dextrose 50 ml 01/12/19 15:37 D50w (25gm) Syringe IV PRN PRN Hypoglycemia Diphenhydramine HCl 25 mg 01/16/19 21:50 01/16/19 22:18 Benadryl IV 25 mg HS PRN Administration insomnia Epoetin Pernell 10,000 unit 01/13/19 00:27 01/16/19 13:30 Procrit IV 10,000 unit MARI PRN Administration hemodialysis Hydralazine HCl 10 mg 01/12/19 23:50 01/16/19 01:13 Apresoline IV 10 mg Q6H PRN Administration Hypertension Sodium Chloride 100 mls @ 999 mls/hr 01/13/19 00:27 Nacl 0.9% IV MARI PRN Hypotension Sodium Chloride 1,000 mls @ 125 mls/hr 01/14/19 11:00 01/16/19 01:18 Nacl 0.45% 1000 Ml IV Infused DIRECT SANDRINE Infusion Insulin Glargine 20 units 01/15/19 10:00 01/16/19 09:05 Lantus SUB-Q 20 units QAM SANDRINE Administration Insulin Human Lispro 0 unit 01/12/19 18:00 01/17/19 06:48 Humalog SUB-Q 6 unit Q6HR SANDRINE Administration Protocol Lisinopril 40 mg 01/14/19 10:36 01/16/19 09:04 Zestril PO 40 mg QDAY SANDRINE Administration Lorazepam 1 mg 01/12/19 18:26 Ativan IV Q4H PRN Agitation Metoclopramide HCl 5 mg 01/16/19 16:30 01/17/19 08:11 Reglan PO 5 mg ACHS SANDRINE Administration Nitroglycerin 0.4 mg 01/12/19 15:28 Nitrostat SL Q5M PRN Chest Pain Ondansetron HCl 4 mg 01/12/19 23:48 01/16/19 03:30 Zofran IV 4 mg Q6H PRN Administration Nausea And Vomiting Pantoprazole Sodium 40 mg 01/16/19 13:00 01/16/19 15:34 Protonix PO 40 mg QDAY SANDRINE Administration Paricalcitol 2 mcg 01/17/19 09:11 01/17/19 08:13 Zemplar PO 2 mcg MoWeFr SANDRINE Administration Sodium Chloride 10 ml 01/12/19 22:00 01/16/19 21:48 Sodium Chloride Flush Syringe 10 Ml IV 10 ml BID SANDRINE Administration Sodium Chloride 10 ml 01/12/19 15:28 Sodium Chloride Flush Syringe 10 Ml IV PRN PRN LINE FLUSH
[2019-01-17] MEDS: SODIUM CHLORIDE FLUSH SYRINGE 10 ML IV SCH ×2 (09:36→22:35)
[2019-01-17] MEDS: PROTONIX PO SCH (09:36)
[2019-01-17] MEDS: ZESTRIL PO SCH (09:36)
[2019-01-17] MEDS: LANTUS SUB-Q SCH (09:37)
--- NOTE | 2019-01-17 13:28 | Gastroenterology Progress Note ---
Assessment and Plan 1.N/V 2.Abdominal Pain 3.H/o gastroparesis 4.DM (uncontrolled) 5.ESRD on HD -WBC 13.6-trending down -LFTs WNL -abd CT w/o acute process -last EGD 12/2017 with initial scope showing retained food c/w gastroparesis and repeat showing gastritis -etiology-most likely 2/2 diabetic gastroparesis with +/- component of biliary dysfunction -abd U/S showed gallstones but no acute cholecystitis -clinically, patient reports feeling better today with abd pain resolved and N/V improved. Tolerating clear. -no plan for repeat scope at this time -advance diet as tolerated -continue PPI, reglan, and antiemetics -optimize glycemic control -avoid narcotics -continue supportive care -once patient is tolerated PO, okay to be d/c per GI standpoint with f/u in clinic -will sign off, please call if needed Subjective Date of service: 01/17/19 Principal diagnosis: gastroparesis Interval history: Patient resting in bed w/o acute distress. Reports feeling kianna today with abd pain resolved and N/v improving. No episodes of vomiting so far this am. Tolerating clear liquids. Objective - Constitutional Vitals: Temp Pulse Resp BP Pulse Ox 99.1 F 105 H 20 149/100 93 01/17/19 05:13 01/17/19 09:36 01/17/19 05:13 01/17/19 05:13 01/17/19 05:13 General appearance: no acute distress - Respiratory Respiratory: bilateral: CTA - Cardiovascular Rhythm: other (tachycardia) - Gastrointestinal General gastrointestinal: Present: soft, non-tender, non-distended, normal bowel sounds - Labs CBC & Chem 7: 01/17/19 04:53 01/17/19 04:53 Labs: Laboratory Results - last 24 hr 01/17/19 01/17/19 04:53 04:53 WBC 13.6 H RBC 3.51 L Hgb 10.4 L Hct 31.6 L MCV 90 MCH 30 MCHC 33 RDW 15.2 Plt Count 173 Sodium 135 L Potassium 3.7 Chloride 94.6 L Carbon Dioxide 25 Anion Gap 19 BUN 34 H Creatinine 8.1 H Estimated GFR 9 BUN/Creatinine Ratio 4 Glucose 238 H Calcium 7.7 L
--- NOTE | 2019-01-17 14:48 | Progress Note ---
Assessment and Plan Assessment and plan: Patient is a 38 YO Male with ESRD on HD (M,W,F), HTN, TIA, DM, Gastroparesis, [place], Migraine SOARES, [place], presents to ED with chest pains, intractable n/v. ESRD (end stage renal disease) on dialysis, Nephrology consulted in dialysis, dialysis as per renal team. strict I/O, monitor uop q shift, avoid nephrotoxic agents. SIRS with organ dysfunction, poa Hypertension urgency: use prn iv hydralazine Chest pain, stress test negative, atypical, GERD/gastritis related most likely: Cardiology has seen and evaluated Diabetic gastroparesis flare: add reglan, Boost shakes supplement and downgrade diet temp spike of 100.4 last night, consult ID, get cxr and blood culture, ua if he makes urine History Interval history: Patient was seen and examined. Follow-up on current diagnosis of chest pain, abd pain n/v still present. Overnight uneventful. Patient denies any chest pain, shortness breath or severe headaches. Imaging, nursing note, chart, labs and old chart reviewed. Discussed with patient. Hospitalist Physical - Physical exam Narrative exam: GEN: WDWN, NAD, Awake, Alert, Orientated HEENT: NCAT, EOMI, PERRL, OP Clear NECK: supple, no adenopathy, no thyromegaly, no JVD CVS/HEART: RRR, normal S1S2, pulses present bilaterally CHEST/LUNGS: CTA B, Symmetrical chest expansion, good air entry bilaterally GI/Abdomen: soft, mild epigastric tenderness, good bowel sounds, no guarding or rebound /Bladder: no suprapubic tenderness, no CVA or paraspinal tenderness EXT/Skin: no c/c/e, no obvious rash MSK: FROM x 4 Neuro: CN 2-12 grossly intact, no new focal deficits Psych: calm - Constitutional Vitals: Temp Pulse Resp BP Pulse Ox 99.1 F 105 H 20 149/100 93 01/17/19 05:13 01/17/19 09:36 01/17/19 05:13 01/17/19 05:13 01/17/19 05:13 General appearance: Present: no acute distress, well-nourished Results - Labs CBC & Chem 7: 01/17/19 04:53 01/17/19 04:53 Labs: Laboratory Last Values WBC 13.6 K/mm3 (4.5-11.0) H 01/17/19 04:53 RBC 3.51 M/mm3 (3.65-5.03) L 01/17/19 04:53 Hgb 10.4 gm/dl (11.8-15.2) L 01/17/19 04:53 Hct 31.6 % (35.5-45.6) L 01/17/19 04:53 MCV 90 fl (84-94) 01/17/19 04:53 MCH 30 pg (28-32) 01/17/19 04:53 MCHC 33 % (32-34) 01/17/19 04:53 RDW 15.2 % (13.2-15.2) 01/17/19 04:53 Plt Count 173 K/mm3 (140-440) 01/17/19 04:53 Lymph % (Auto) 12.2 % (13.4-35.0) L 01/16/19 04:59 [place] % (Auto) 8.6 % (0.0-7.3) H 01/16/19 04:59 Eos % (Auto) 0.1 % (0.0-4.3) 01/16/19 04:59 Baso % (Auto) 0.5 % (0.0-1.8) 01/16/19 04:59 Lymph # 1.9 K/mm3 (1.2-5.4) 01/16/19 04:59 [place] # 1.3 K/mm3 (0.0-0.8) H 01/16/19 04:59 Eos # 0.0 K/mm3 (0.0-0.4) 01/16/19 04:59 Baso # 0.1 K/mm3 (0.0-0.1) 01/16/19 04:59 Seg Neutrophils % 78.6 % (40.0-70.0) H 01/16/19 04:59 Seg Neutrophils # 12.0 K/mm3 (1.8-7.7) H 01/16/19 04:59 PT 15.0 Sec. (12.2-14.9) H 01/12/19 11:42 INR 1.11 (0.87-1.13) 01/12/19 11:42 APTT 25.1 Sec. (24.2-36.6) 01/12/19 11:42 D-Dimer 723.05 ng/mlDDU (0-234) H 01/12/19 11:42 VBG pH 7.421 (7.320-7.420) H 01/12/19 13:35 Sodium 135 mmol/L (137-145) L 01/17/19 04:53 Potassium 3.7 mmol/L (3.6-5.0) 01/17/19 04:53 Chloride 94.6 mmol/L (98-107) L 01/17/19 04:53 Carbon Dioxide 25 mmol/L (22-30) 01/17/19 04:53 Anion Gap 19 mmol/L 01/17/19 04:53 BUN 34 mg/dL (9-20) H 01/17/19 04:53 Creatinine 8.1 mg/dL (0.8-1.5) H 01/17/19 04:53 Estimated GFR 9 ml/min 01/17/19 04:53 BUN/Creatinine Ratio 4 % 01/17/19 04:53 Glucose 238 mg/dL (75-100) H 01/17/19 04:53 POC Glucose 354 (70-105) H 01/14/19 23:43 Calcium 7.7 mg/dL (8.4-10.2) L 01/17/19 04:53 Phosphorus 5.80 mg/dL (2.5-4.5) H 01/15/19 10:35 Total Bilirubin 0.60 mg/dL (0.1-1.2) 01/15/19 10:35 AST 17 units/L (5-40) 01/15/19 10:35 ALT 8 units/L (7-56) 01/15/19 10:35 Alkaline Phosphatase 98 units/L (35-129) 01/15/19 10:35 Troponin T 0.520 ng/mL (0.00-0.029) H* 01/12/19 21:16 Total Protein 7.8 g/dL (6.3-8.2) 01/15/19 10:35 Albumin 4.4 g/dL (3.9-5) 01/15/19 10:35 Albumin/Globulin Ratio 1.3 % 01/15/19 10:35 Triglycerides 238 mg/dL (2-149) H 01/12/19 11:42 Cholesterol 174 mg/dL (50-199) 01/12/19 11:42 LDL Cholesterol Direct 114 mg/dL (50-130) 01/12/19 11:42 HDL Cholesterol 32 mg/dL (40-59) L 01/12/19 11:42 Cholesterol/HDL Ratio 5.43 % 01/12/19 11:42 PTH Intact 661.6 pg/mL (15-65) H 01/15/19 10:35
--- NOTE | 2019-01-17 16:46 | Consultation ---
History of Present Illness - Reason for Consult Consult date: 01/17/19 fever Requesting physician: TIKA HARRIS - History of Present Illness The patient is a 38-year-old male with ESRD on hemodialysis via right arm AVG, hypertension, TIA, diabetes mellitus, gastroparesis, migraine headaches presented to the emergency room on 01/12/2019 with complaints of chest pain. Workup included cardiology eval who recommended a stress test. Patient underwent a nuclear medicine myocardial perfusion study which was negative for ischemia. He underwent a VQ scan which showed low probability for a pulmonary embolism. A CT abdomen and pelvis without contrast on admission was also unremarkable. Due to a temperature spike of 100.4F, infectious diseases was consulted today. Patient states he feels well. He denies any more chest pain. He reports having some nausea and vomiting in the initial part of the hospitalization but none currently. He reports chronic diarrhea, has 2 stools per day going on for the last 2-3 years and is unchanged at this time. He makes very little urine, denies any urinary burning. He denies any cough or runny nose. Denies any shortness of breath. He feels pretty close to his baseline. Review of Systems: General: no chills or rigors HEENT: no new visual disturbance Respiratory: No cough, sputum, hemoptysis or shortness of breath Cardiovascular: No chest pain, syncope at present Gastrointestinal: No nausea, vomiting or significant diarrhea Genitourinary: No dysuria or hematuria Musculoskeletal: No new or worsening neck pain or back pain Neurologic: No headaches, seizures Hematologic: No easy bruising or bleeding Endocrine: No night sweats or acute weight loss Skin: negative for rash, jaundice Psychiatric: No suicidal or homicidal ideation Past History Past Medical History: other (as per HPI) Past Surgical History: Other (AVF, Vas Cath, ) Social history: . denies: smoking, alcohol abuse, prescription drug a buse Family history: diabetes, hypertension Medications and Allergies Allergies Allergy/AdvReac Type Severity Reaction Status Date / Time cefazolin [From Ancef] Allergy Vomiting Verified 07/21/18 13:02 shellfish derived Allergy Anaphylaxis Verified 06/08/18 15:09 iodine AdvReac Severe Vomiting Verified 06/08/18 15:09 IV dye AdvReac Severe Vomiting Uncoded 04/28/18 08:49 Home Medications Medication Instructions Recorded Confirmed Last Taken Type Insulin Glargine [Lantus VIAL] 30 units SQ QHS #1 mo 02/05/18 01/12/19 09/21/18 Rx 15units Insulin Aspart [NovoLOG Flexpen] 0 units SQ AC PRN 03/03/18 01/12/19 09/22/18 History 2units Lisinopril [Zestril] 5 mg PO QDAY 01/12/19 01/12/19 Unknown History Active Meds: Active Medications Acetaminophen (Tylenol) 650 mg PO Q4H PRN PRN Reason: Pain MILD(1-3)/Fever >100.5/SOARES Albuterol (Proventil) 2.5 mg IH Q4HRT PRN PRN Reason: Shortness Of Breath Last Admin: 01/14/19 09:14 Dose: 2.5 mg Documented by: Calcium Acetate (Phoslo) 667 mg PO TID SANDRINE Last Admin: 01/17/19 14:21 Dose: 667 mg Documented by: Clonidine HCl (Catapres-Tts Patch) 0.3 mg TD Sa SANDRINE Dextrose (D50w (25gm) Syringe) 50 ml IV PRN PRN PRN Reason: Hypoglycemia Diphenhydramine HCl (Benadryl) 25 mg IV HS PRN PRN Reason: insomnia Last Admin: 01/16/19 22:18 Dose: 25 mg Documented by: Epoetin Pernell (Procrit) 10,000 unit IV MARI PRN PRN Reason: hemodialysis Last Admin: 01/16/19 13:30 Dose: 10,000 unit Documented by: Hydralazine HCl (Apresoline) 10 mg IV Q6H PRN PRN Reason: Hypertension Last Admin: 01/16/19 01:13 Dose: 10 mg Documented by: Sodium Chloride (Nacl 0.9%) 100 mls @ 999 mls/hr IV MARI PRN PRN Reason: Hypotension Sodium Chloride (Nacl 0.45% 1000 Ml) 1,000 mls @ 125 mls/hr IV DIRECT SANDRINE Last Infusion: 01/16/19 01:18 Dose: Infused Documented by: Insulin Glargine (Lantus) 20 units SUB-Q QAM SANDRINE Last Admin: 01/17/19 09:37 Dose: 20 units Documented by: Insulin Human Lispro (Humalog) 0 unit SUB-Q Q6HR SANDRINE; Protocol Last Admin: 01/17/19 11:11 Dose: 4 unit Documented by: Lisinopril (Zestril) 40 mg PO QDAY [facility] Last Admin: 01/17/19 09:36 Dose: 40 mg Documented by: Lorazepam (Ativan) 1 mg IV Q4H PRN PRN Reason: Agitation Metoclopramide HCl (Reglan) 5 mg PO ACHS [facility] Last Admin: 01/17/19 11:10 Dose: 5 mg Documented by: Nitroglycerin (Nitrostat) 0.4 mg SL Q5M PRN PRN Reason: Chest Pain Ondansetron HCl (Zofran) 4 mg IV Q6H PRN PRN Reason: Nausea And Vomiting Last Admin: 01/16/19 03:30 Dose: 4 mg Documented by: Pantoprazole Sodium (Protonix) 40 mg PO QDAY [facility] Last Admin: 01/17/19 09:36 Dose: 40 mg Documented by: Paricalcitol (Zemplar) 2 mcg PO MoWeFr [facility] Last Admin: 01/17/19 08:13 Dose: 2 mcg Documented by: Sodium Chloride (Sodium Chloride Flush Syringe 10 Ml) 10 ml IV BID [facility] Last Admin: 01/17/19 09:36 Dose: 10 ml Documented by: Sodium Chloride (Sodium Chloride Flush Syringe 10 Ml) 10 ml IV PRN PRN PRN Reason: LINE FLUSH Physical Examination - Physical Exam Narrative exam: Physical Exam: Constitutional: Alert, cooperative. No acute distress Head, Ears, Nose: Normocephalic, atraumatic. External ears, nose normal Eyes: Conjunctivae/corneas clear. No icterus. No ptosis. Neck: Supple, no meningeal signs Oral: no thrush Cardiovascular: S1, S2 normal. Respiratory: Good air entry, clear to auscultation bilaterally GI: Soft, non-tender; bowel sounds normal. No peritoneal signs Musculoskeletal: No pedal edema, no cyanosis. Right arm AVG + no redness or tenderness Skin: No rash or abscess Hem/Lymphatic: No palpable cervical or supraclavicular nodes. No lymphangitis Psych: Mood ok. Affect normal Neurological: Awake, alert, oriented. No gross abnormality - Constitutional Vitals: Vital Signs Temp Pulse Resp BP Pulse Ox 99.1 F 105 H 20 149/100 93 01/17/19 05:13 01/17/19 09:36 01/17/19 05:13 01/17/19 05:13 01/17/19 05:13 Temperature -Last 24 Hours Temperature 99.1 F Temperature 100.4 F Results - Labs CBC & Chem 7: 01/17/19 04:53 01/17/19 04:53 Labs: Abnormal lab results 01/17/19 01/17/19 Range/Units 04:53 04:53 WBC 13.6 H (4.5-11.0) K/mm3 RBC 3.51 L (3.65-5.03) M/mm3 Hgb 10.4 L (11.8-15.2) gm/dl Hct 31.6 L (35.5-45.6) % Sodium 135 L (137-145) mmol/L Chloride 94.6 L (98-107) mmol/L BUN 34 H (9-20) mg/dL Creatinine 8.1 H (0.8-1.5) mg/dL Glucose 238 H (75-100) mg/dL Calcium 7.7 L (8.4-10.2) mg/dL - Imaging and Cardiology Chest x-ray: report reviewed, image reviewed (no pneumonia seen) CT scan - abdomen: report reviewed, image reviewed (unremarkable for acute infectious process) Assessment and Plan Cultures: None this admission A/P: 38-year-old male with ESRD on hemodialysis via right arm AVG, hypertension, TIA, diabetes mellitus, gastroparesis, migraine headaches admitted for chest pain. ID consulted for: 1) Low grade fever: one episode today. Leukocytosis is improving. Remains off antibiotics. Chest x-ray on admission, CT abdomen and pelvis without contrast both without any evidence of infectious process. Clinically asymptomatic. No obvious source of infection identified at this time. Monitor fever off antibiotics. 2) ESRD: on HD. Has right arm AVG. 3) Chest pain: on admission. Resolved. Cardiac work up negative. VQ low probability. Recs: Clinically asymptomatic. No obvious source of infection identified at this time. Monitor fever and WBC off antibiotics If he spikes a fever greater than 101.5F, would obtain blood cultures and start empiric IV cefepime and vancomycin MD [facility] C: [phone] O: [phone] F: [phone]
--- NOTE | 2019-01-17 18:33 | XRay Report ---
PROCEDURE: XR CHEST ROUTINE 2V TECHNIQUE: PA and lateral views of the chest HISTORY: fever COMPARISONS: Chest x-ray dated January 12, 2019 FINDINGS: There is mild elevation of the right hemidiaphragm similar in appearance to the previous study. There is no evidence of focal infiltrate, pneumothorax or pleural fluid collection. The cardiac silhouette appears to be enlarged similar in appearance to the previous study. The thoracic aorta and bony structures are unremarkable. A vascular stent is demonstrated in the right axillary region similar in appearance to the previous s tudy. IMPRESSION: 1. No evidence of an acute pulmonary process. No significant change since previous study dated January 12, 2019. This document is electronically signed by Mary Mejia MD., January 17 2019 06:31:20 PM ET
[2019-01-18] MEDS: HumaLOG SUB-Q SCH ×3 (00:21→12:52)
[2019-01-18 06:15] LABS: Hematocrit 29.3 % (35.5-45.6); Hemoglobin 9.5 gm/dl (11.8-15.2); Mean Corpuscular HGB Conc 32 % (32-34); Mean Corpuscular Volume 90 fl (84-94); Platelet Count 173 K/mm3 (140-440); Red Blood Count 3.25 M/mm3 (3.65-5.03); Red Cell Distribution Width 15.5 % (13.2-15.2)
[2019-01-18 06:28] LABS: Calcium 7.4 mg/dL (8.4-10.2)
[2019-01-18] MEDS: NACL 0.45% 1000 ML 1,000 ML IV SCH (07:31)
--- NOTE | 2019-01-18 08:59 | Progress Note ---
Subjective Principal diagnosis: gastroparesis Interval history: Patient was seen today for follow-up on multiple renal related issues Status post infectious disease evaluation Patient started using incentive spirometer No cough, no chills no dysuria burning frequency Abdominal symptoms slowly improving Tolerated dialysis fairly well Vitals labs intake output medications were reviewed Social history: Reviewed Allergies: Reviewed Family history: Reviewed Physical examination HEENT: Oral mucosa moist no pallor or icterus Neck: Supple no JVD Chest: Clear to auscultation anteriorly CVS: Regular rate and rhythm S1 and S2 heard Abdomen: Soft nontender no suprapubic masses no organomegaly appreciable Extremity: Dry skin less than 1+ peripheral edema Musculoskeletal: No joint effusion noted in knees and ankle Neurological: Alert awake Dermatology: No petechial rashes Psychiatry: No evidence of any agitation and aggression noted Assessment and plan End-stage renal disease: Continue with hemodialysis Tuesday Dialysis prescription was changed due to gastroparalysis and dehydration Ultrafiltration goal can be adjusted as needed Low-grade fever patient started on incentive spirometer advised to increase ambulation status post infectious disease evaluation Abdominal ultrasonogram shows evidence of gallstone but no cholecystitis Renal standpoint continue to monitor labs; Poorly controlled diabetes, Secondary hyperparathyroidism: Phosphorus 5.8 PTH 661 Patient is on oral vitamin D analog Avoid excessive narcotics Discussed about gastroparesis diet Diabetes mellitus type 2 very poorly controlled Patient does need follow-up labs which will be ordered today We'll continue to follow and make recommendation from renal standpoint Objective - Vital Signs Vital signs: Vital Signs - 12hr 01/17/19 01/18/19 23:59 05:26 Temperature 98.8 F 98.1 F Pulse Rate 102 H 92 H Respiratory 16 18 Rate Blood Pressure 128/72 116/74 O2 Sat by Pulse 95 93 Oximetry - Lab 01/18/19 05:29 01/18/19 05:29 Most recent lab results Calcium 7.4 mg/dL (8.4-10.2) L 01/18/19 05:29 Phosphorus 5.80 mg/dL (2.5-4.5) H 01/15/19 10:35 Medications & Allergies - Medications Allergies/Adverse Reactions: Allergies cefazolin [From Ancef] Allergy (Verified 07/21/18 13:02) Vomiting shellfish derived Allergy (Verified 06/08/18 15:09) Anaphylaxis iodine Adverse Reaction (Severe, Verified 06/08/18 15:09) Vomiting IV dye Adverse Reaction (Severe, Uncoded 04/28/18 08:49) Vomiting Home Medications: Home Medications Medication Instructions Recorded Confirmed Last Taken Type Insulin Glargine [Lantus VIAL] 30 units SQ QHS #1 mo 02/05/18 01/12/19 09/21/18 Rx 15units Insulin Aspart [NovoLOG Flexpen] 0 units SQ AC PRN 03/03/18 01/12/19 09/22/18 History 2units Lisinopril [Zestril] 5 mg PO QDAY 01/12/19 01/12/19 Unknown History Active Medications: Generic Name Dose Route Start Last Admin Trade Name Freq PRN Reason Stop Dose Admin Acetaminophen 650 mg 01/12/19 15:28 Tylenol PO Q4H PRN Pain MILD(1-3)/Fever >100.5/SOARES Albuterol 2.5 mg 01/12/19 15:28 01/14/19 09:14 Proventil IH 2.5 mg Q4HRT PRN Administration Shortness Of Breath Calcium Acetate 667 mg 01/16/19 14:00 01/17/19 22:35 Phoslo PO 667 mg TID SANDRINE Administration Clonidine HCl 0.3 mg 01/20/19 12:09 Catapres-Tts Patch TD Sa SANDRINE Dextrose 50 ml 01/12/19 15:37 D50w (25gm) Syringe IV PRN PRN Hypoglycemia Diphenhydramine HCl 25 mg 01/16/19 21:50 01/16/19 22:18 Benadryl IV 25 mg HS PRN Administration insomnia Epoetin Pernell 10,000 unit 01/13/19 00:27 01/16/19 13:30 Procrit IV 10,000 unit MARI PRN Administration hemodialysis Hydralazine HCl 10 mg 01/12/19 23:50 01/16/19 01:13 Apresoline IV 10 mg Q6H PRN Administration Hypertension Sodium Chloride 100 mls @ 999 mls/hr 01/13/19 00:27 Nacl 0.9% IV MARI PRN Hypotension Sodium Chloride 1,000 mls @ 125 mls/hr 01/14/19 11:00 01/16/19 01:18 Nacl 0.45% 1000 Ml IV Infused DIRECT SANDRINE Infusion Insulin Glargine 20 units 01/15/19 10:00 01/17/19 09:37 Lantus SUB-Q 20 units QAM SANDRINE Administration Insulin Human Lispro 0 unit 01/12/19 18:00 01/18/19 06:38 Humalog SUB-Q Not Given Q6HR [facility] Protocol Lisinopril 40 mg 01/14/19 10:36 01/17/19 09:36 Zestril PO 40 mg QDAY SANDRINE Administration Lorazepam 1 mg 01/12/19 18:26 Ativan IV Q4H PRN Agitation Metoclopramide HCl 5 mg 01/16/19 16:30 01/17/19 22:35 Reglan PO 5 mg ACHS SANDRINE Administration Nitroglycerin 0.4 mg 01/12/19 15:28 Nitrostat SL Q5M PRN Chest Pain Ondansetron HCl 4 mg 01/12/19 23:48 01/16/19 03:30 Zofran IV 4 mg Q6H PRN Administration Nausea And Vomiting Pantoprazole Sodium 40 mg 01/16/19 13:00 01/17/19 09:36 Protonix PO 40 mg QDAY SANDRINE Administration Paricalcitol 2 mcg 01/17/19 09:11 01/17/19 08:13 Zemplar PO 2 mcg MoWeFr SANDRINE Administration Sodium Chloride 10 ml 01/12/19 22:00 01/17/19 22:35 Sodium Chloride Flush Syringe 10 Ml IV 10 ml BID SANDRINE Administration Sodium Chloride 10 ml 01/12/19 15:28 Sodium Chloride Flush Syringe 10 Ml IV PRN PRN LINE FLUSH
--- NOTE | 2019-01-18 09:32 | Progress Note ---
Assessment and Plan Assessment and Plan Cultures: None this admission A/P: 38-year-old male with ESRD on hemodialysis via right arm AVG, hypertension, TIA, diabetes mellitus, gastroparesis, migraine headaches admitted for chest pain. ID consulted for: 1) Low grade fever: Resolved. No Fever in > 24 hours. Leukocytosis is improving. Remains off antibiotics. Chest x-ray on admission, CT abdomen and pelvis without contrast both without any evidence of infectious process. Clinica lly asymptomatic. No obvious source of infection identified at this time. 2) ESRD: on HD. Has right arm AVG. 3) Chest pain: on admission. Resolved. Cardiac work up negative. VQ low probability. Recs: remains clinically asymptomatic. OK to discharge from ID standpoint [employer] M: [id number] O:[phone] Subjective Date of service: 01/18/19 Principal diagnosis: gastroparesis Interval history: Patient seen and examined. Sitting up in the chair watching TV. No generalized pain, weakness or SOB. No fevers. Objective - Exam Narrative Exam: Constitutional: Alert, cooperative. No acute distress Head, Ears, Nose: Normocephalic, atraumatic. External ears, nose normal Eyes: Conjunctivae/corneas clear. No icterus. No ptosis. Neck: Supple, no meningeal signs Oral: no thrush Cardiovascular: S1, S2 normal. Respiratory: Good air entry, clear to auscultation bilaterally GI: Soft, non-tender; bowel sounds normal. No peritoneal signs Musculoskeletal: No pedal edema, no cyanosis. Right arm AVG + no redness or tenderness Skin: No rash or abscess Hem/Lymphatic: No palpable cervical or supraclavicular nodes. No lymphangitis Psych: Mood ok. Affect normal Neurological: Awake, alert, oriented. No gross abnormality - Constitutional Vitals: Vital Signs Temp Pulse Resp BP Pulse Ox 98.1 F 92 H 18 116/74 93 01/18/19 05:26 01/18/19 05:26 01/18/19 05:26 01/18/19 05:26 01/18/19 05:26 Temperature -Last 24 Hours Temperature 98.1 F Temperature 98.8 F Temperature 99.3 F - Labs CBC & Chem 7: 01/18/19 05:29 01/18/19 05:29 Labs: Abnormal lab results 01/15/19 01/15/19 01/15/19 Range/Units 06:01 12:07 17:01 WBC (4.5-11.0) K/mm3 RBC (3.65-5.03) M/mm3 Hgb (11.8-15.2) gm/dl Hct (35.5-45.6) % RDW (13.2-15.2) % Sodium (137-145) mmol/L Potassium (3.6-5.0) mmol/L Chloride (98-107) mmol/L BUN (9-20) mg/dL Creatinine (0.8-1.5) mg/dL POC Glucose 335 H 285 H 315 H (70-105) Calcium (8.4-10.2) mg/dL 01/15/19 01/16/19 01/16/19 Range/Units 23:37 05:48 07:35 WBC (4.5-11.0) K/mm3 RBC (3.65-5.03) M/mm3 Hgb (11.8-15.2) gm/dl Hct (35.5-45.6) % RDW (13.2-15.2) % Sodium (137-145) mmol/L Potassium (3.6-5.0) mmol/L Chloride (98-107) mmol/L BUN (9-20) mg/dL Creatinine (0.8-1.5) mg/dL POC Glucose 319 H 244 H 242 H (70-105) Calcium (8.4-10.2) mg/dL 01/16/19 01/16/19 01/17/19 Range/Units 15:37 21:16 05:38 WBC (4.5-11.0) K/mm3 RBC (3.65-5.03) M/mm3 Hgb (11.8-15.2) gm/dl Hct (35.5-45.6) % RDW (13.2-15.2) % Sodium (137-145) mmol/L Potassium (3.6-5.0) mmol/L Chloride (98-107) mmol/L BUN (9-20) mg/dL Creatinine (0.8-1.5) mg/dL POC Glucose 252 H 293 H 261 H (70-105) Calcium (8.4-10.2) mg/dL 01/17/19 01/17/19 01/17/19 Range/Units 10:48 16:41 22:00 WBC (4.5-11.0) K/mm3 RBC (3.65-5.03) M/mm3 Hgb (11.8-15.2) gm/dl Hct (35.5-45.6) % RDW (13.2-15.2) % Sodium (137-145) mmol/L Potassium (3.6-5.0) mmol/L Chloride (98-107) mmol/L BUN (9-20) mg/dL Creatinine (0.8-1.5) mg/dL POC Glucose 278 H 154 H 299 H (70-105) Calcium (8.4-10.2) mg/dL 01/18/19 01/18/19 01/18/19 Range/Units 05:29 05:29 08:30 WBC 11.8 H (4.5-11.0) K/mm3 RBC 3.25 L (3.65-5.03) M/mm3 Hgb 9.5 L (11.8-15.2) gm/dl Hct 29.3 L (35.5-45.6) % RDW 15.5 H (13.2-15.2) % Sodium 136 L (137-145) mmol/L Potassium 3.0 L (3.6-5.0) mmol/L Chloride 90.0 L (98-107) mmol/L BUN 45 H (9-20) mg/dL Creatinine 10.2 H (0.8-1.5) mg/dL POC Glucose 154 H (70-105) Calcium 7.4 L (8.4-10.2) mg/dL
[2019-01-18] MEDS: PHOSLO PO SCH (09:52)
[2019-01-18] MEDS: ZESTRIL PO SCH (09:52)
[2019-01-18] MEDS: PROTONIX PO SCH (09:53)
[2019-01-18] MEDS: REGLAN PO SCH ×2 (09:53→12:52)
[2019-01-18] MEDS: LANTUS SUB-Q SCH (09:53)
[2019-01-18] MEDS: SODIUM CHLORIDE FLUSH SYRINGE 10 ML IV SCH (09:54)
[2019-01-18 11:30] LABS: Hepatitis C Virus Antibody Non-Reactive (NonReactive)
[2019-01-18] MEDS ORDERED: POTASSIUM CHLORIDE PO ONE (12:02)
[2019-01-18 12:52] VITALS: BP 139/78
--- NOTE | 2019-01-18 13:07 | Discharge Summary ---
Providers - Providers Date of Admission: 01/12/19 15:28 Date of discharge: 01/18/19 Attending physician: TIKA HARRIS 01/12/19 Consult to Cardiac Rehabilitation [CONS] Routine Reason For Exam: Phase I 01/12/19 15:36 Consult to Physician [CONS] Routine Comment: Consulting Provider: MATHEW DOBBS Physician Instructions: Reason For Exam: esrd 01/16/19 01:26 Consult to Physician [CONS] Routine Comment: Consulting Provider: JASON REESE Physician Instructions: Reason For Exam: Diabetic gastroparesis 01/17/19 14:43 Consult to Physician [CONS] Routine Comment: Consulting Provider: DU CALDWELL Physician Instructions: i notified Reason For Exam: why new low grade fevers [facility] Hospitalization Condition: Stable Hospital course: Patient is a 38 YO Male with ESRD on HD (M,W,F), HTN, TIA, DM, Gastroparesis, OK, Migraine SOARES, PE, presents to ED with chest pains, intractable n/v. ESRD (end stage renal disease) on dialysis, Nephrology consulted in dialysis, dialysis as per renal team. strict I/O, monitor uop q shift, avoid nephrotoxic agents. SIRS with organ dysfunction, poa Hypertension urgency: use prn iv hydralazine Chest pain, stress test negative, atypical, GERD/gastritis related most likely: Cardiology has seen and evaluated Diabetic gastroparesis flare: added reglan which helped, Boost shakes supplement and downgrade diet, he is tolerating a clear diet Disposition: DC-01 TO HOME OR SELFCARE Time spent for discharge: 36 minutes Core Measure Documentation - Palliative Care Palliative Care/ Comfort Measures: Not Applicable - Core Measures Any of the following diagnoses?: none - VTE Discharge Requirements Deep Vein Thrombosis/Pulmonary Embolism Present on Admission: No Has pt received <5 days of overlap therapy or INR<2.0: No Anticoagulant overlap therapy prescribed at discharge: No Contraindication No Overlap Therapy order at DC: Not Indicated Exam - Physical Exam Narrative exam: GEN: WDWN, NAD, Awake, Alert, Orientated HEENT: NCAT, EOMI, PERRL, OP Clear NECK: supple, no adenopathy, no thyromegaly, no JVD CVS/HEART: RRR, normal S1S2, pulses present bilaterally CHEST/LUNGS: CTA B, Symmetrical chest expansion, good air entry bilaterally GI/Abdomen: soft, mild epigastric tenderness, good bowel sounds, no guarding or rebound /Bladder: no suprapubic tenderness, no CVA or paraspinal tenderness EXT/Skin: no c/c/e, no obvious rash MSK: FROM x 4 Neuro: CN 2-12 grossly intact, no new focal deficits Psych: calm - Constitutional Vitals: Temp Pulse Resp BP Pulse Ox 98.0 F 117 H 20 139/78 99 01/18/19 12:00 01/18/19 12:00 01/18/19 12:00 01/18/19 12:00 01/18/19 12:00 Plan Activity: other (no strenous activities until cleared by pcp) Diet: clear liquids, advance as tolerated [facility] [place] [Primary Care Provider] - 3-5 Days JASON REESE MD [Staff Physician] - 10 Days MATHEW DOBBS MD [Staff Physician] - 14 Days Prescriptions: Calcium Acetate [Phoslo] 667 mg PO TID #90 capsule Metoclopramide [Reglan TAB] 5 mg PO ACHS #30 tablet Lisinopril [Zestril TAB] 40 mg PO QDAY #30 tablet
[2019-01-20] MEDS ORDERED: CATAPRES-TTS PATCH TD SCH (12:09)
[2019-01-24 09:40] LABS: Hepatitis B Surface Antigen Nonreactive (Negative)
== END 2019-01-18 13:45 | disposition home or self-care (01) | DRG 391 ==
LOC: ED 10:42 → 4A 15:28 → 3A 01-13 22:09
PROVIDERS: ADMIT Internal Medicine; ATTEND Internal Medicine
PROC: 5A1D70Z Performance of Urinary Filtration, Intermittent, Less than 6 Hours Per Day (ICD-10-PCS; principal; 2019-01-13)
PROC: 5A1D70Z Performance of Urinary Filtration, Intermittent, Less than 6 Hours Per Day (ICD-10-PCS; 2019-01-16)
DX: K29.70 Gastritis, unspecified, without bleeding (principal); R65.11 Systemic inflammatory response syndrome (SIRS) of non-infectious origin with acute organ dysfunction; N18.6 End stage renal disease; E87.1 Hypo-osmolality and hyponatremia; N25.81 Secondary hyperparathyroidism of renal origin; E87.2 Acidosis; K31.84 Gastroparesis; I16.0 Hypertensive urgency; Z99.2 Dependence on renal dialysis; K21.9 Gastro-esophageal reflux disease without esophagitis; E11.22 Type 2 diabetes mellitus with diabetic chronic kidney disease; I25.2 Old myocardial infarction; G43.909 Migraine, unspecified, not intractable, without status migrainosus; E11.43 Type 2 diabetes mellitus with diabetic autonomic (poly)neuropathy; I25.119 Atherosclerotic heart disease of native coronary artery with unspecified angina pectoris; E11.21 Type 2 diabetes mellitus with diabetic nephropathy; E11.319 Type 2 diabetes mellitus with unspecified diabetic retinopathy without macular edema; D63.1 Anemia in chronic kidney disease; K80.80 Other cholelithiasis without obstruction; Z89.421 Acquired absence of other right toe(s); Z86.711 Personal history of pulmonary embolism; Z86.73 Personal history of transient ischemic attack (TIA), and cerebral infarction without residual deficits; Z79.4 Long term (current) use of insulin
CPT/HCPCS: 36415; 71046; 74022; 74176; 76700; 78452; 78582; 80048; 80053; 80061; 80074; 82805; 82962; 83970; 84100; 84484; 85025; 85027; 85379; 85610; 85730; 87040; 93005; 93010; 94640; 94760; 96374; 96375; 96376; G0378; A9502; A9540; A9558; J0360; J0885; J1170; J1200; J1815; J2270; J2405; J2785; J7030; J7040

== ENCOUNTER 2019-03-01 12:38 | Day surgery (SDC) | payer OTHER, MEDICARE ==
[~2019-03-01 12:38] MED LIST changes: -ANCEF/STERILE WATER 2 GM/20 ML 2 GM/20 ML SYRINGE IV NR; -NACL BACTERIOSTATIC INFILTRATI ONE
[2019-03-01] MEDS ORDERED: BENADRYL IV ONE (17:05)
[2019-03-01] MEDS ORDERED: PEPCID IV ONE (17:06)
[2019-03-01] MEDS ORDERED: HEPARIN 10,000 UNITS/10 ML ONE (18:07)
[2019-03-01] MEDS ORDERED: HEPARIN/NS 5000 UNIT/500ML(CATH LAB) 1,500 ML IR ONE (18:07)
[2019-03-01] MEDS ORDERED: XYLOCAINE 2% INFILTRATI ONE (18:08)
[2019-03-01] MEDS ORDERED: NACL 0.9% 500 ML 500 ML ONE (18:10)
[2019-03-01] MEDS: SUBLIMAZE ONE ×2 (18:33→19:24)
[2019-03-01] MEDS: VERSED ONE ×2 (18:33→19:24)
[2019-03-01] MEDS: APRESOLINE ONE ×2 (18:42→19:02)
--- NOTE | 2019-03-01 19:44 | Operative Report ---
Operative Report Operative Report: Date of procedure: 03/01/2019 Pre-operative diagnosis: Thrombosed hemodialysis graft right arm, end-stage renal disease Post-operative diagnosis: Same Procedure name(s): Percutaneous mechanical thrombectomy of hemodialysis graft right arm with balloon angioplasty of the peripheral dialysis circuit Surgeon: Jasbir Power MD Furniture Finisher Apprentice: None Anesthesia: Moderate sedation [id number]. Total sedation time 52 minutes EBL: Minimal Specimen(s): None Complications: None Findings: Thrombosed right upper arm AV graft with in-stent restenosis in the venous outflow tract as retreated by thrombectomy and balloon angioplasty. Access running and ready for use. Procedure: After adequate levels of moderate sedation was obtained the right arm was then prepped and draped using standard sterile technique. The ultrasound was used to identify the thrombosed graft and through anesthetized skin using micropuncture technique the graft was imaged in the afferent loop towards the venous outflow tract. A 6 Lithuanian introducer was placed and a guidewire was advanced into the central circulation and images confirmed no central stenosis with thrombus extending through the venous stents in-stent restenosis. An AngioJet thrombectomy catheter was used to extract thrombus. Contrast injection showed removal of the vast majority of thrombotic material. A second sheath was placed using cross catheter technique and using duplex scanning micropuncture technique. A Glidewire was advanced through the arterial anastomosis. The AngioJet was used to remove thrombus up to but not through the anastomosis. An [id number] Graham catheter was then advanced into the brachial artery and the fibrin plug was removed. Her main to the thrombus was removed using a combination of AngioJet and balloon maceration. Venous outflow tract was then treated with an 8 x 4 balloon. Further contrast injection showed the graft to be fully functional and it developed an excellent thrill and bruit. All guidewires and catheters were removed and each sheath was extracted over a pursestring chromic suture. She tolerated the procedure well and was returned to the recovery room and will go home to dialyze per usual protocol.
--- NOTE | 2019-03-01 19:52 | Short Stay Summary ---
Short Stay Documentation Date of service: 03/01/19 Narrative H&P: Admitted to the Sample Tailor for outpatient declotting of a thrombosed dialysis graft in his right upper arm. - History H&P: obtained from office - Allergies and Medications Current Medications: Allergies cefazolin [From Anc] Allergy (Verified 07/21/18 13:02) Vomiting shellfish derived Allergy (Verified 06/08/18 15:09) Anaphylaxis iodine Adverse Reaction (Severe, Verified 06/08/18 15:09) Vomiting IV dye Adverse Reaction (Severe, Uncoded 04/28/18 08:49) Vomiting Home Medications Medication Instructions Recorded Confirmed Last Taken Type Insulin Aspart [NovoLOG Flexpen] 0 units SQ AC PRN 03/03/18 03/01/19 02/28/19 History Acetaminophen [Acetaminophen TAB] 650 mg PO Q4H PRN #15 tablet 01/18/19 Unknown Rx Calcium Acetate [Phoslo] 667 mg PO TID #90 capsule 01/18/19 03/01/19 02/28/19 Rx Epoetin Pernell 10,000 Unit [Procrit] 10,000 unit IV MARI PRN #1 vial 01/18/19 03/01/19 Unknown Rx Insulin Glargine [Lantus VIAL] 20 units SQ QHS #1 mo 01/18/19 03/01/19 02/28/19 Rx Lisinopril [Zestril TAB] 40 mg PO QDAY #30 tablet 01/18/19 03/01/19 Unknown Rx Metoclopramide [Reglan TAB] 5 mg PO ACHS #30 tablet 01/18/19 Unknown Rx Pantoprazole [Protonix TAB] 40 mg PO QDAY #30 tablet 01/18/19 03/01/19 Unknown Rx Paricalcitol [Zemplar] 2 mcg PO MoWeFr 30 Days capsule 01/18/19 03/01/19 02/28/19 Rx Clonidine HCl [Catapres] 0.3 mg PO BID 03/01/19 03/01/19 03/01/19 10:00 History amLODIPine [Norvasc] 5 mg PO BID 03/01/19 03/01/19 03/01/19 10:00 History Active Medications Sodium Chloride (Nacl 0.9% 1000 Ml) 1,000 mls @ 42 mls/hr IV DIRECT SANDRINE - Brief post op/procedure progress note Date of procedure: 03/01/19 Procedure: Pre-operative diagnosis: Thrombosed hemodialysis graft right arm, end-stage renal disease Post-operative diagnosis: Same Procedure name(s): Percutaneous mechanical thrombectomy of hemodialysis graft right arm with balloon angioplasty of the peripheral dialysis circuit Surgeon: Jasbir Power MD Cellophane Bath Mixer: None Anesthesia: Moderate sedation [id number]. Total sedation time 52 minutes EBL: Minimal Specimen(s): None Complications: None Findings: Thrombosed right upper arm AV graft with in-stent restenosis in the venous outflow tract as retreated by thrombectomy and balloon angioplasty. Access running and ready for use. Procedure: After adequate levels of moderate sedation was obtained the right arm was then prepped and draped using standard sterile technique. The ultrasound was used to identify the thrombosed graft and through anesthetized skin using micropuncture technique the graft was imaged in the afferent loop towards the venous outflow tract. A 6 Icelandic introducer was placed and a guidewire was advanced into the central circulation and images confirmed no central stenosis with thrombus extending through the venous stents in-stent restenosis. An AngioJet thrombectomy catheter was used to extract thrombus. Contrast injection showed removal of the vast majority of thrombotic material. A second sheath was placed using cross catheter technique and using duplex scanning micropuncture technique. A Glidewire was advanced through the arterial anastomosis. The AngioJet was used to remove thrombus up to but not through the anastomosis. An [id number] Graham catheter was then advanced into the brachial artery and the fibrin plug was removed. Her main to the thrombus was removed using a combination of AngioJet and balloon maceration. Venous outflow tract was then treated with an 8 x 4 balloon. Further contrast injection showed the graft to be fully functional and it developed an excellent thrill and bruit. All guidewires and catheters were removed and each sheath was extracted over a pursestring chromic suture. She tolerated the procedure well and was returned to the recovery room and will go home to dialyze per usual protocol. - Disposition Condition at discharge: Stable Disposition: DC-01 TO HOME OR SELFCARE - Discharge Diagnoses (1) Mechanical complication of arteriovenous shunt surgically created Status: Acute Qualifiers: Encounter type: initial encounter Qualified Code(s): T82.590A - Other mechanical complication of surgically created arteriovenous fistula, initial encounter (2) Diabetes Status: Chronic Qualifiers: Diabetes mellitus type: type 2 Diabetes mellitus [facility] insulin use: unspecified nursing home insulin use status Diabetes mellitus complication status: with kidney complications Diabetes mellitus complication detail: with chronic kidney disease Chronic kidney disease stage: on chronic dialysis Qualified Code(s): E11.22 - Type 2 diabetes mellitus with diabetic chronic kidney disease; N18.6 - End stage renal disease; Z99.2 - Dependence on renal dialysis (3) ESRD (end stage renal disease) on dialysis Status: Chronic Short Stay Discharge Plan Activity: advance as tolerated Weight Bearing Status: Full Weight Bearing Diet: renal Wound: keep clean and dry Special Instructions: no heavy lifting Follow up with: DANE GONZALEZ MD [Primary Care Provider] - 7 Days
[2019-03-01 20:02] VITALS: BP 164/93
== END 2019-03-01 20:26 | disposition home or self-care (01) ==
LOC: CATHLABREC 12:38
PROVIDERS: ATTEND Surgery Vascular Surgery
DX: T82.868A Thrombosis due to vascular prosthetic devices, implants and grafts, initial encounter (principal); I13.2 Hypertensive heart and chronic kidney disease with heart failure and with stage 5 chronic kidney disease, or end stage renal disease; E11.22 Type 2 diabetes mellitus with diabetic chronic kidney disease; N18.6 End stage renal disease; I50.9 Heart failure, unspecified; I25.2 Old myocardial infarction; D64.9 Anemia, unspecified; E78.5 Hyperlipidemia, unspecified; K21.9 Gastro-esophageal reflux disease without esophagitis; E11.43 Type 2 diabetes mellitus with diabetic autonomic (poly)neuropathy; E11.69 Type 2 diabetes mellitus with other specified complication; D72.829 Elevated white blood cell count, unspecified; E11.65 Type 2 diabetes mellitus with hyperglycemia; I25.10 Atherosclerotic heart disease of native coronary artery without angina pectoris; G43.909 Migraine, unspecified, not intractable, without status migrainosus; E11.51 Type 2 diabetes mellitus with diabetic peripheral angiopathy without gangrene; E78.00 Pure hypercholesterolemia, unspecified; I42.9 Cardiomyopathy, unspecified; E11.319 Type 2 diabetes mellitus with unspecified diabetic retinopathy without macular edema; Z91.041 Radiographic dye allergy status; Z91.013 Allergy to seafood; Z79.899 Other long term (current) drug therapy; Z79.4 Long term (current) use of insulin; Z98.890 Other specified postprocedural states; Z86.718 Personal history of other venous thrombosis and embolism; Z86.711 Personal history of pulmonary embolism; Z88.8 Allergy status to other drugs, medicaments and biological substances; Z86.73 Personal history of transient ischemic attack (TIA), and cerebral infarction without residual deficits; Y92.89 Other specified places as the place of occurrence of the external cause; Y83.8 Other surgical procedures as the cause of abnormal reaction of the patient, or of later complication, without mention of misadventure at the time of the procedure
CPT/HCPCS: 36415; 36905; 76937; 84132; 96374; 96375; 99156; 99157; C1725; C1751; C1757; C1769; C1894; J0360; J1200; J1644; J1720; J2250; J3010; J7040; Q9967

== ENCOUNTER 2019-03-09 11:10 | Day surgery (SDC) | payer OTHER, MEDICARE ==
[2019-03-09] MEDS ORDERED: BENADRYL IV ONE (13:30)
[2019-03-09] MEDS ORDERED: HumaLOG SUB-Q ONE (13:31)
--- NOTE | 2019-03-09 13:36 | Short Stay Summary ---
<[place] - Last Filed: 03/09/19 13:32> Short Stay Documentation Date of service: 03/09/19 Narrative H&P: 38yo AAM with ESRD presents with a thrombosed RUE AVG. His avg is ~2yrs old. It has thrombosed 2 times in the last 2 weeks. He reports post HD hypotension yesterday with subsequent AVG thrombosis. - History Past Medical History: CAD, diabetes, dialysis, ESRD, hypertension Past Surgical History: Other (RIJ PC, RUE AVG with subsequent operative revision, Multiple percuataneous declots) Social history: lives with family - Allergies and Medications Current Medications: Allergies cefazolin [From [facility] Allergy (Verified 07/21/18 13:02) Vomiting shellfish derived Allergy (Verified 06/08/18 15:09) Anaphylaxis iodine Adverse Reaction (Severe, Verified 06/08/18 15:09) Vomiting IV dye Adverse Reaction (Severe, Uncoded 04/28/18 08:49) Vomiting Home Medications Medication Instructions Recorded Confirmed Last Taken Type Insulin Aspart [NovoLOG Flexpen] 0 units SQ AC PRN 03/03/18 03/09/19 03/08/19 History Acetaminophen [Acetaminophen TAB] 650 mg PO Q4H PRN #15 tablet 01/18/19 Unknown Rx Calcium Acetate [Phoslo] 667 mg PO TID #90 capsule 01/18/19 03/09/19 03/08/19 Rx Epoetin Pernell 10,000 Unit [Procrit] 10,000 unit IV MARI PRN #1 vial 01/18/19 03/01/19 Unknown Rx Insulin Glargine [Lantus VIAL] 20 units SQ QHS #1 mo 01/18/19 03/09/19 03/08/19 Rx Pantoprazole [Protonix TAB] 40 mg PO QDAY #30 tablet 01/18/19 03/09/19 Unknown Rx Paricalcitol [Zemplar] 2 mcg PO MoWeFr 30 Days capsule 01/18/19 03/09/19 03/07/19 Rx Clonidine HCl [Catapres] 0.3 mg PO BID 03/01/19 03/09/19 03/08/19 History amLODIPine [Norvasc] 5 mg PO BID 03/01/19 03/09/19 03/08/19 History - Physical exam General appearance: no acute distress HEENT: Atraumatic, EOMI Lungs: Normal air movement Extremities: no ischemia (unable to palpate a thrill in avg, no signs of overt infection appreciated.) Neurological: Other (no focal deficits appreciated) - Disposition Condition at discharge: Good Disposition: DC-01 TO HOME OR SELFCARE Short Stay Discharge Plan Follow up with: MARIAM MEDRANO MD [Staff Physician] - 14 Days <MARIAM MEDRANO - Last Filed: 03/09/19 15:35> Short Stay Documentation - Allergies and Medications Current Medications: Allergies cefazolin [From [facility]] Allergy (Verified 07/21/18 13:02) Vomiting shellfish derived Allergy (Verified 06/08/18 15:09) Anaphylaxis iodine Adverse Reaction (Severe, Verified 06/08/18 15:09) Vomiting IV dye Adverse Reaction (Severe, Uncoded 04/28/18 08:49) Vomiting Home Medications Medication Instructions Recorded Confirmed Last Taken Type Insulin Aspart [NovoLOG Flexpen] 0 units SQ AC PRN 03/03/18 03/09/19 03/08/19 History Acetaminophen [Acetaminophen TAB] 650 mg PO Q4H PRN #15 tablet 01/18/19 Unknown Rx Calcium Acetate [Phoslo] 667 mg PO TID #90 capsule 01/18/19 03/09/19 03/08/19 Rx Epoetin Pernell 10,000 Unit [Procrit] 10,000 unit IV MARI PRN #1 vial 01/18/19 03/01/19 Unknown Rx Insulin Glargine [Lantus VIAL] 20 units SQ QHS #1 mo 01/18/19 03/09/19 03/08/19 Rx Pantoprazole [Protonix TAB] 40 mg PO QDAY #30 tablet 01/18/19 03/09/19 Unknown Rx Paricalcitol [Zemplar] 2 mcg PO MoWeFr 30 Days capsule 01/18/19 03/09/19 03/07/19 Rx Clonidine HCl [Catapres] 0.3 mg PO BID 03/01/19 03/09/19 03/08/19 History amLODIPine [Norvasc] 5 mg PO BID 03/01/19 03/09/19 03/08/19 History Active Medications Famotidine (Pepcid) 20 mg IV NOW SANDRINE Last Admin: 03/09/19 14:00 Dose: 20 mg Documented by: Clindamycin HCl (Cleocin 600 Mg/50 Ml) 600 mg in 50 mls @ 100 mls/hr IV PREOP NR; Protocol Stop: 03/09/19 23:59 Last Admin: 03/09/19 15:10 Dose: 50 mls Documented by: Methylprednisolone Sodium Succinate (Solu-Medrol) 125 mg IV PREOP NR Stop: 03/09/19 23:59 Last Admin: 03/09/19 14:02 Dose: 125 mg Documented by: - Brief post op/procedure progress note Date of procedure: 03/09/19 Pre-op diagnosis: thrombosed right upper extremity arterial venous graft Post-op diagnosis: same Procedure: 1. ultrasound and partial right internal jugular vein 2. placement of right internal jugular vein permacath (23 cm Glidecath) Anesthesia: local (with moderate sedation) Findings: Excellent flow from both ports. Surgeon: MARIAM MEDRANO Estimated blood loss: none Condition: stable - Hospital course Hospital course: Benign Short Stay Discharge Plan Activity: advance as tolerated Diet: advance as tolerated Wound: per your surgeon's advice
[2019-03-09] MEDS ORDERED: SOLU-Medrol IV NR (14:00)
[2019-03-09] MEDS ORDERED: PEPCID IV SCH (14:00)
[2019-03-09] MEDS ORDERED: NACL 0.9% 500 ML IR ONE (14:43)
[2019-03-09] MEDS ORDERED: NACL 0.9% 250ML 250 ML ONE ×2 (14:55→15:00)
[2019-03-09] MEDS ORDERED: XYLOCAINE 1%/ EPI 1:100,000 INFILTRATI ONE (14:55)
[2019-03-09] MEDS ORDERED: CLEOCIN 600 MG/50 mL 600 MG/50 ML BAG IV NR (15:00)
[2019-03-09] MEDS: SUBLIMAZE ONE ×3 (15:03→15:09)
[2019-03-09] MEDS: VERSED ONE ×2 (15:03→15:08)
[2019-03-09] MEDS: XYLOCAINE 2% INFILTRATI ONE ×2 (15:05→15:09)
[2019-03-09] MEDS ORDERED: VERSED ONE (15:12)
[2019-03-09] MEDS: HEPARIN 10,000 UNITS/10 ML ONE ×2 (15:22→15:23)
--- NOTE | 2019-03-09 15:38 | Operative Report ---
Operative Report Operative Report: Date of procedure: 03/09/2019 Pre-operative diagnosis: Thrombosed right upper extremity arteriovenous graft Post-operative diagnosis: same Procedure name(s): 1. US guided puncture of the right internal jugular vein 2. Placement of right internal jugular permacath (Glidepath 23cm) 3. Fluoroscopic supervision Surgeon: Benny Gonzalez MD, FACS Signal Timer: none Anesthesia: local with sedation; Sedation start: 1508 Sedation end: 1529 Total sedation time: 21 minutes or 2 anesthesia units EBL: minimal Operative indication: Patient is a 38 yo man who requires hemodialysis access. Findings: Good flow from both ports. Catheter located at the cavoatrial junction. Procedure: The patient was placed on the table in the supine position. The area over the right neck and chest was prepped with ChloraPrep solution and draped in usual sterile fashion. 2% lidocaine was used for local anesthesia. Under real-time ultrasound guidance the right internal jugular vein was identified and cannulated. A guidewire was advanced into the central circulation. A tunnel was made over the anterior chest using the tunneling device in the kit. The catheter was then tunneled between the 2 incisions. Using a series of dilators, the track into the jugular vein was dilated. The introducer sheath was then placed. There was some scarring around the tissue around the jugular vein from a previous permacath. A Amplatz wire was used for all catheter manipulations. The catheter was placed through the introducer sheath which was then removed. The catheter tip was placed at the cavoatrial junction. The catheters were aspirated with excellent flow from both ports. Both ports flushed easily. They were then filled to their stated volume with 500 unit per milliliter heparin. Closure at the insertion site was done with 4-0 subcuticular Monocryl. The catheter was sewn to the skin with 2-0 Proline. Sterile dressings were applied. The patient tolerated the procedure well.
[2019-03-09] MEDS ORDERED: NORCO 5/325 PO ONE (15:58)
[2019-03-09 16:19] VITALS: BP 178/109
== END 2019-03-09 11:11 | disposition home or self-care (01) ==
LOC: CATHLABREC 11:10
PROVIDERS: ATTEND Surgery Vascular Surgery
DX: T82.868A Thrombosis due to vascular prosthetic devices, implants and grafts, initial encounter (principal); I13.2 Hypertensive heart and chronic kidney disease with heart failure and with stage 5 chronic kidney disease, or end stage renal disease; E11.22 Type 2 diabetes mellitus with diabetic chronic kidney disease; N18.6 End stage renal disease; I50.9 Heart failure, unspecified; I25.10 Atherosclerotic heart disease of native coronary artery without angina pectoris; I25.2 Old myocardial infarction; K21.9 Gastro-esophageal reflux disease without esophagitis; E11.43 Type 2 diabetes mellitus with diabetic autonomic (poly)neuropathy; E11.69 Type 2 diabetes mellitus with other specified complication; D64.9 Anemia, unspecified; D72.829 Elevated white blood cell count, unspecified; E11.65 Type 2 diabetes mellitus with hyperglycemia; Z91.013 Allergy to seafood; Z91.041 Radiographic dye allergy status; Z79.4 Long term (current) use of insulin; Z79.899 Other long term (current) drug therapy; Z88.8 Allergy status to other drugs, medicaments and biological substances; Y83.8 Other surgical procedures as the cause of abnormal reaction of the patient, or of later complication, without mention of misadventure at the time of the procedure; Y92.89 Other specified places as the place of occurrence of the external cause
CPT/HCPCS: 36415; 36558; 77001; 82962; 84132; 96372; 96374; 96375; 99156; C1750; C1751; C1769; J1200; J1644; J2250; J2930; J3010; J7050; J1815

== ENCOUNTER 2019-03-29 12:53 | Day surgery (SDC) | payer OTHER, MEDICARE ==
[2019-03-29] MEDS ORDERED: HEPARIN 10,000 UNITS/10 ML ONE (15:06)
[2019-03-29] MEDS ORDERED: HEPARIN/NS 5000 UNIT/500ML(CATH LAB) 1,000 ML IR ONE ×2 (15:06→17:42)
[2019-03-29] MEDS ORDERED: ZOFRAN IV ONE (15:30)
[2019-03-29] MEDS ORDERED: PEPCID IV ONE (15:37)
[2019-03-29] MEDS ORDERED: NACL 0.9% 500 ML 500 ML ONE (15:51)
[2019-03-29] MEDS ORDERED: BENADRYL IV ONE (16:00)
[2019-03-29] MEDS: VERSED ONE ×3 (16:01→17:00)
[2019-03-29] MEDS: SUBLIMAZE ONE ×3 (16:01→17:00)
[2019-03-29] MEDS: XYLOCAINE 2% INFILTRATI ONE ×4 (16:02→17:17)
[2019-03-29] MEDS ORDERED: SOLU-Medrol IV ONE (16:25)
[2019-03-29] MEDS ORDERED: APRESOLINE ONE (17:00)
[2019-03-29] MEDS ORDERED: SUBLIMAZE ONE (17:56)
[2019-03-29] MEDS ORDERED: VERSED ONE (17:56)
[2019-03-29] MEDS ORDERED: PEPCID PO SCH (18:00)
[2019-03-29] MEDS ORDERED: VANCOMYCIN/NS 1 GM/250 ML 1 GM/250 ML BAG IV ONE (18:56)
[2019-03-29] MEDS: PEPCID IV SCH ×2 (19:10→19:12)
--- NOTE | 2019-03-29 19:14 | Short Stay Summary ---
Short Stay Documentation Date of service: 03/29/19 Narrative H&P: See H&P - History H&P: obtained from office - Allergies and Medications Current Medications: Allergies cefazolin [From [facility]] Allergy (Verified 07/21/18 13:02) Vomiting shellfish derived Allergy (Verified 06/08/18 15:09) Anaphylaxis iodine Adverse Reaction (Severe, Verified 06/08/18 15:09) Vomiting IV dye Adverse Reaction (Severe, Uncoded 04/28/18 08:49) Vomiting Home Medications Medication Instructions Recorded Confirmed Last Taken Type Calcium Acetate [Phoslo] 667 mg PO TID #90 capsule 01/18/19 03/29/19 03/28/19 Rx 1 tab Insulin Glargine [Lantus VIAL] 20 units SQ QHS #1 mo 01/18/19 03/29/19 03/28/19 Rx 1 tab Pantoprazole [Protonix TAB] 40 mg PO QDAY #30 tablet 01/18/19 03/29/19 03/28/19 Rx 1 tab Clonidine HCl [Catapres] 0.3 mg PO BID 03/01/19 03/29/19 03/28/19 History 1 tab amLODIPine [Norvasc] 5 mg PO BID 03/01/19 03/29/19 03/29/19 History 1 tab Active Medications Famotidine (Pepcid) 20 mg IV QDAY SANDRINE Vancomycin HCl (Vancomycin/Ns 1 Gm/250 Ml) 1 gm in 250 mls @ 167.007 mls/hr IV ONCE ONE; Protocol Stop: 03/29/19 20:25 Last Admin: 03/29/19 18:09 Dose: 250 mls Documented by: - Brief post op/procedure progress note Date of procedure: 03/29/19 Pre-op diagnosis: Complications of Dialysis Access Post-op diagnosis: same Procedure: 1. Access Right Arm AV Loop Graft with 7 Wolof Sheath Venous 2. Excise Right Arm AV Loop Graft with 8 Wolof Sheath Arterial 3. Fistulogram with Central Venogram 4. Catheter in Right Subclavian Artery 5. Right Upper Extremity Arteriogram 6. Percutaneous Mechanical Thrombectomy of Right Arm AV Graft with Trertolla Device, [id number] Graham, And AngioJet Catheter 7. Angioplasty and Stent of Right Arm AV Graft with 10 x 60 Covera Stent Graft and 8 x 40 [place] Balloon 8. Conversion to Open Thrombectomy of Right Arm AV Graft With Explantation of Previously Placed Stents 9. Radiologic Supervision with Interpretation Anesthesia: local, other (IV sedation) Surgeon: MARIFER BRANDON Estimated blood loss: 50-100ml Pathology: list (right arm AV graft thrombosis) Specimen disposition: discarded - Disposition Condition at discharge: Good Disposition: DC-01 TO HOME OR SELFCARE Short Stay Discharge Plan Activity: other (no heavy lifting with right arm for 2 weeks) Wound: open to air, keep clean and dry, other (okay to wash the wound with soap and water but do not soak in water for 2 weeks) Follow up with: MARIFER BRANDON MD [Staff Physician] - 14 Days Prescriptions: HYDROcodone/APAP 7.5-325 [[place] 7.5/325] 1 each PO Q6HR PRN #40 tablet PRN Reason: Pain
--- NOTE | 2019-03-29 19:24 | Operative Report ---
Operative Report Operative Report: Date of Procedure: 03/29/2019 Pre-operative Diagnosis: Complications of Dialysis Access Post-operative Diagnosis: Same Procedure(s): 1. Access Right Arm AV Loop Graft with 7 Gabonese Sheath Venous 2. Excise Right Arm AV Loop Graft with 8 Gabonese Sheath Arterial 3. Fistulogram with Central Venogram 4. Catheter in Right Subclavian Artery 5. Right Upper Extremity Arteriogram 6. Percutaneous Mechanical Thrombectomy of Right Arm AV Graft with Trertolla Device, [id number] Graham, And AngioJet Catheter 7. Angioplasty and Stent of Right Arm AV Graft with 10 x 60 Covera Stent Graft and 8 x 40 Tekoa Balloon 8. Conversion to Open Thrombectomy of Right Arm AV Graft With Explantation of Previously Placed Stents 9. Radiologic Supervision with Interpretation Surgeon: Mika Escalante M.D. Plant Tech: None Anesthesia: Local and IV sedation EBL: 100 mL Counts: Correct Complications: None Condition: Stable Findings: The graft was thrombosed throughout with stenosis in the venous limb of the graft. There was a large chronic thrombus plug in the arterial limb that required open thrombectomy. The graft was patent with a foul throughout the completion of the case. Specimen: Thrombus from right arm AV graft was discarded. Indwelling stent and previously place stents were explanted and discarded. Indication: The patient is a 38-year-old male with a history of end-stage renal disease on hemodialysis A right arm arteriovenous loop graft. He presented to the hospital with a thrombosed graft and had a permacath placed approximately 2 weeks ago. He presented to my office with a thrombosed graft and was set up for a percutaneous thrombectomy. He was given the risk, benefits, and alternative procedures and consented to the procedure. Description of Procedure: The patient he was brought to the Quality Assurance Lead and laid in supine position. After a time out was performed his right arm was prepped and draped in normal sterile fashion. 2% lidocaine was used to anesthetize the skin overlying the graft and micropuncture technique was used to access the graft towards the venous outflow. A 7 Gabonese sheath was then placed. A fistulogram revealed thrombus throughout the graft and an occluded stent within the graft. I used a vertebral catheter and glide wire made attempts to cannulate the stent without success. The wire kept tracking around the stent. I decided to use a Trertolla to attempt to morcellate the thrombus in hopes of drilling a hole into the lumen of the sten t. While using the Trertolla it became bound on the strut of the stent and I was unable to dislodge it. While pulling the Trertolla back towards the sheath the stent was dislodged from its position and pulled partially into the sheath. I was eventually able to get the Tertolla out of the graft and then insert the dilator through the stent pushing it back into the graft and partially reopen the lumen of the stent that was obviously a balloon expandable stent. I plan to continue the thrombectomy and then realigned that stent or crush it out of the way and place a covered stent across it. I inserted the guidewire and vertebral catheter and advanced them into the central venous system. I performed a venogram which revealed there was no significant stenosis within the central venous system. There was a stent restenosis within stents and the axillary vein or possibly 75-80% which I treated with an 8 x 40 Tekoa Balloon reducing the stenosis to approximately 20%. I used the balloon to macerate thrombus within the graft and aspirated the thrombus. I also used the balloon to reopen the stent which had been dislodged from its position. I performed a fistulogram revealing the thrombus in the venous outflow of the graft had been significantly reduced to minimal thrombus. I then anesthetized the skin overlying the venous outflow of the graft and used a micropuncture technique to access the graft towards the arterial inflow. I then placed a 6 Gabonese sheath towards the arterial inflow. I used multiple catheters and wires to attempt to cannulate the occluded arterial anastomosis and eventually I crossed using a Navicross Catheter and 0.035 Advantage Wire which was confirmed by arteriogram. I advanced the catheter into the proximal subclavian artery and performed a arteriogram to confirm that there was no stenosis within the proximal arterial inflow. I then is reinserted the wire and using [id number] Graham to pull thrombus back into the graft. Upon doing this it was obvious that there was a large thrombus burden within the arterial inflow. I upsize my 6 Gabonese sheath an 8 Gabonese sheath and first decided to cover the distal stent with a 9 x 60 Covera Stent Graft and pulse dilated this with a 8 x 40 balloon. I attempted to use the 8 x 40 balloon to macerate the thrombus without success. I then attempted to use the Trertolla Device to break up the thrombus again without success so I attempted to use an AngioJet catheter and again this was unsuccessful. I decided the only way to remove this thrombus, which I felt was a large plug, was within open thrombectomy. I used the 2% lidocaine to anesthetize the skin over the arterial limb and made a transverse incision with a 15 blade. I used Metzenbaums to dissect down to the graft and dissected circumferentially and controlled the arterial inflow with a vascular clamp. I then made a graftotomy with an 11 blade and using a hemostat to reach into the graft to retrieve the thrombus. Upon doing so I grabbed the Covera stent that had been placed. Since this stent had been used to trap the previously dislodged stent I reached him with the hemostat and removed that stent as well. I then reached in and was able to retrieve the thrombus plug. I irrigated the graft and some fibrinous debris was removed. I then placed my finger over the graftotomy and if removed the clamp from the arterial inflow. I used my finger to provide some hemostasis while advancing the advantage wire under fluoroscopy. I then advanced a 10 x 60 Covera Stent Graft into position and deployed it across the graftotomy. I used the 10 x 40 balloon to post dilate the stent and despite that there was still some oozing around the stent graft. I used 5-0 Prolene to partially close the graft in the places of hemorrhage. This controlled the bleeding. I then closed the wound in 2 layers using a 3-0 Vicryl in a running fashion in the deep dermal layer and a 4-0 Monocryl in a running fashion the subcuticular layer. That wound was then dressed with Dermabond. The graft at this time had a palpable thrill and the final fistulogram revealed the graft was patent with minimal residual thrombus. I removed all wires and then used 4-0 chromic in pursestring fashion to close each entry site after removing the sheaths. The patient tolerated the procedure well. All sponge, needle, and instrument counts were correct. The patient was taken to the recovery area in stable condition.
[2019-03-29 19:46] VITALS: BP 159/94
== END 2019-03-29 20:10 | disposition home or self-care (01) ==
LOC: CATHLABREC 12:53
PROVIDERS: ATTEND Surgery Vascular Surgery
DX: T82.858A Stenosis of other vascular prosthetic devices, implants and grafts, initial encounter (principal); T82.868A Thrombosis due to vascular prosthetic devices, implants and grafts, initial encounter; I13.2 Hypertensive heart and chronic kidney disease with heart failure and with stage 5 chronic kidney disease, or end stage renal disease; E11.22 Type 2 diabetes mellitus with diabetic chronic kidney disease; N18.6 End stage renal disease; I25.10 Atherosclerotic heart disease of native coronary artery without angina pectoris; I50.9 Heart failure, unspecified; I25.2 Old myocardial infarction; D64.9 Anemia, unspecified; E78.5 Hyperlipidemia, unspecified; K21.9 Gastro-esophageal reflux disease without esophagitis; E11.43 Type 2 diabetes mellitus with diabetic autonomic (poly)neuropathy; E11.69 Type 2 diabetes mellitus with other specified complication; I82.591 Chronic embolism and thrombosis of other specified deep vein of right lower extremity; E11.65 Type 2 diabetes mellitus with hyperglycemia; T82.590A Other mechanical complication of surgically created arteriovenous fistula, initial encounter; G43.909 Migraine, unspecified, not intractable, without status migrainosus; E11.51 Type 2 diabetes mellitus with diabetic peripheral angiopathy without gangrene; E78.00 Pure hypercholesterolemia, unspecified; Z91.041 Radiographic dye allergy status; Z91.013 Allergy to seafood; Z79.899 Other long term (current) drug therapy; Z79.4 Long term (current) use of insulin; Z88.8 Allergy status to other drugs, medicaments and biological substances; Z86.73 Personal history of transient ischemic attack (TIA), and cerebral infarction without residual deficits; Z98.890 Other specified postprocedural states; Y83.8 Other surgical procedures as the cause of abnormal reaction of the patient, or of later complication, without mention of misadventure at the time of the procedure; Y92.89 Other specified places as the place of occurrence of the external cause
CPT/HCPCS: 36415; 36906; 82962; 84132; 96374; 96375; 99156; 99157; C1725; C1757; C1769; C1874; C1887; C1894; J0360; J1200; J1644; J2250; J2405; J2930; J3010; J3370; J7040; Q9967

== ENCOUNTER 2019-04-02 12:59 | Inpatient (IN) | payer OTHER, MEDICARE ==
[2019-04-02] MEDS ORDERED: PEPCID IV ONE (13:57)
[2019-04-02] MEDS ORDERED: TYLENOL PO ONE (13:58)
--- NOTE | 2019-04-02 13:58 | Emergency Department Report ---
ED General Adult HPI - General Chief complaint: Dyspnea/Respdistress Stated complaint: BARB Time Seen by Provider: 04/02/19 13:29 Source: patient, EMS (ems notes not available at time of chart dictation), RN notes reviewed, old records reviewed Mode of arrival: Stretcher Limitations: No Limitations - History of Present Illness Initial comments: This is a pleasant 38-year-old gentleman. 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 He has a past medical history of end-stage renal disease on dialysis, Tuesday, Tuesday, Tuesday. He also has a history of hypertension. He presents to the ER today with a complaint of painless shortness of breath. It started over the past 2-3 days. He has new-onset orthopnea. It worsens with physical exertion. It decreases with rest. He received 3-1/2 hours of dialysis today. He reports that he still feels that he is short of breath. He does not feel fluid overloaded clinically. Patient had an exercise cardiac stress test January 2019, which was interpreted as negative. The patient recently had an elective vascular surgery procedure performed on his right upper extremity graft. He endorses new-onset 3 pillow orthopnea. He has no chest pain. He has epigastric and periumbilical abdominal pain. The pain is achy, increases with palpation and decreases with rest. He denies dysuria. -: Gradual, days(s) Quality: aching Consistency: intermittent Improves with: rest Worsens with: movement - Related Data Home Medications Medication Instructions Recorded Confirmed Last Taken Clonidine HCl [Catapres] 0.3 mg PO BID 03/01/19 03/29/19 03/28/19 1 tab amLODIPine [Norvasc] 5 mg PO BID 03/01/19 03/29/19 03/29/19 1 tab Previous Rx's Medication Instructions Recorded Last Taken Type Calcium Acetate [Phoslo] 667 mg PO TID #90 capsule 01/18/19 03/28/19 Rx 1 tab Insulin Glargine [Lantus VIAL] 20 units SQ QHS #1 mo 01/18/19 03/28/19 Rx 1 tab Pantoprazole [Protonix TAB] 40 mg PO QDAY #30 tablet 01/18/19 03/28/19 Rx 1 tab HYDROcodone/APAP 7.5-325 [Soldier 1 each PO Q6HR PRN #40 tablet 03/29/19 Unknown Rx 7.5/325] Allergies Allergy/AdvReac Type Severity Reaction Status Date / Time cefazolin [From Anc] Allergy Vomiting Verified 07/21/18 13:02 shellfish derived Allergy Anaphylaxis Verified 06/08/18 15:09 iodine AdvReac Severe Vomiting Verified 06/08/18 15:09 IV dye AdvReac Severe Vomiting Uncoded 04/28/18 08:49 ED Review of Systems ROS: Stated complaint: BARB Other details as noted in HPI Constitutional: malaise, weakness ENT: denies: hearing loss Respiratory: shortness of breath Cardiovascular: denies: chest pain Gastrointestinal: abdominal pain Genitourinary: denies: dysuria Musculoskeletal: denies: myalgia Skin: denies: lesions Neurological: weakness ED Past Medical Hx - Past Medical History Previous Medical History?: Yes Hx Hypertension: Yes Hx CVA: Yes (TIA's) Hx Heart Attack/AMI: Yes Hx Congestive Heart Failure: No Hx Diabetes: Yes Hx Pulmonary Embolism: Yes Hx Renal Disease: Yes Hx Headaches / Migraines: Yes (Migraines) Hx Psychiatric Treatment: No Hx Asthma: No Hx COPD: No Additional medical history: gastroparesis, PE - Surgical History Past Surgical History?: Yes Additional Surgical History: left eye surgery, right toe amputation, right chest vas cath. GRAFT RIGHT UPPER ARM. Graft revision 06/2018 per pt - Social History Smoking Status: Current Some Day Smoker - Medications Home Medications: Home Medications Medication Instructions Recorded Confirmed Last Taken Type Calcium Acetate [Phoslo] 667 mg PO TID #90 capsule 01/18/19 03/29/19 03/28/19 Rx 1 tab Insulin Glargine [Lantus VIAL] 20 units SQ QHS #1 mo 01/18/19 03/29/19 03/28/19 Rx 1 tab Pantoprazole [Protonix TAB] 40 mg PO QDAY #30 tablet 01/18/19 03/29/19 03/28/19 Rx 1 tab Clonidine HCl [Catapres] 0.3 mg PO BID 03/01/19 03/29/19 03/28/19 History 1 tab amLODIPine [Norvasc] 5 mg PO BID 03/01/19 03/29/19 03/29/19 History 1 tab HYDROcodone/APAP 7.5-325 [Soldier 1 each PO Q6HR PRN #40 tablet 03/29/19 Unknown Rx 7.5/325] ED Physical Exam - General Limitations: No Limitations General appearance: alert, in no apparent distress - Head Head exam: Present: atraumatic, normocephalic - Eye Eye exam: Present: normal appearance, EOMI. Absent: nystagmus - ENT ENT exam: Present: normal exam, normal orophraynx, mucous membranes moist, normal external ear exam - Neck Neck exam: Present: normal inspection, full ROM. Absent: tenderness, meningismus - Respiratory Respiratory exam: Present: rales (very faint rales noted at the base), decreased breath sounds, other (there is a right-sided permacath noted, with no redness, pus or streaking). Absent: respiratory distress - Cardiovascular Cardiovascular Exam: Present: regular rate, normal rhythm, normal heart sounds. Absent: bradycardia, tachycardia, irregular rhythm, systolic murmur, diastolic murmur, rubs, gallop - GI/Abdominal GI/Abdominal exam: Present: soft. Absent: distended, tenderness, guarding, rebound, rigid, pulsatile mass - Rectal Rectal exam: Present: deferred - Extremities Exam Extremities exam: Present: normal inspection (right upper extremity graft, with no redness, pus or streaking.), full ROM, pedal edema (1+ edema), other (2+ pulses noted in the bilateral upper, lower extremities. Compartments soft. No long bony tenderness. The pelvis is stable.). Absent: calf tenderness - Back Exam Back exam: Present: normal inspection, full ROM. Absent: tenderness, CVA tenderness (R), CVA tenderness (L), paraspinal tenderness, vertebral tenderness - Neurological Exam Neurological exam: Present: alert, oriented X3, other (Extraocular movements intact. Tongue midline. No facial droop. Facial sensation intact to light touch in the V1, V2, V3 distribution bilaterally. 5 and 5 strength in 4 extremities.. Sensation is intact to light touch in 4 extremities.). Absent: motor sensory deficit - Psychiatric Psychiatric exam: Present: normal affect, normal mood - Skin Skin exam: Present: warm, dry, intact, normal color. Absent: rash ED Course Vital Signs 04/02/19 04/02/19 04/02/19 13:12 13:17 14:15 Temperature 98.8 F Pulse Rate 93 H Respiratory 18 18 Rate Blood Pressure 189/90 O2 Sat by Pulse 99 100 Oximetry - Reevaluation(s) Reevaluation #1: 04/02/19 15:08 Elevated troponin reviewed and appreciated, this is a chronic finding. This is likely a type II troponin leak. Do not suspect acute coronary syndrome at this time. Troponin appears to be at baseline when compared to prior laboratory studies. - Procedure Description Procedures done: Transthoracic limited bedside echocardiogram performed by myself, using a subxiphoid, parasternal long, parasternal short, and apical 4 chamber view approach. Globally, ejection fraction appears to be within normal limits, 50-55%, very small questionable anterior pericardial effusion noted, no obvious large effusion noted ED Medical Decision Making - Lab Data Result diagrams: 04/02/19 13:52 04/02/19 13:52 Vital Signs 04/02/19 04/02/19 04/02/19 13:12 13:17 14:15 Temperature 98.8 F Pulse Rate 93 H Respiratory 18 18 Rate Blood Pressure 189/90 O2 Sat by Pulse 99 100 Oximetry Lab Results 04/02/19 04/02/19 04/02/19 Range/Units 13:52 13:52 13:52 WBC 10.6 (4.5-11.0) K/mm3 RBC 2.56 L (3.65-5.03) M/mm3 Hgb 7.7 L (11.8-15.2) gm/dl Hct 23.3 L (35.5-45.6) % MCV 91 (84-94) fl MCH 30 (28-32) pg MCHC 33 (32-34) % RDW 15.1 (13.2-15.2) % Plt Count 165 (140-440) K/mm3 PT 14.5 (12.2-14.9) Sec. INR 1.06 (0.87-1.13) D-Dimer 1343.89 H (0-234) ng/mlDDU Sodium (137-145) mmol/L Potassium (3.6-5.0) mmol/L Chloride (98-107) mmol/L Carbon Dioxide (22-30) mmol/L Anion Gap mmol/L BUN (9-20) mg/dL Creatinine (0.8-1.5) mg/dL Estimated GFR ml/min BUN/Creatinine Ratio % Glucose (75-100) mg/dL Calcium (8.4-10.2) mg/dL Magnesium (1.7-2.3) mg/dL Total Bilirubin (0.1-1.2) mg/dL AST (5-40) units/L ALT (7-56) units/L Alkaline Phosphatase (35-129) units/L Total Creatine Kinase (55-170) units/L Troponin T 0.404 H* (0.00-0.029) ng/mL Total Protein (6.3-8.2) g/dL Albumin (3.9-5) g/dL Albumin/Globulin Ratio % Triglycerides 220 H (2-149) mg/dL Cholesterol 146 (50-199) mg/dL LDL Cholesterol Direct 81 (50-130) mg/dL HDL Cholesterol 35 L (40-59) mg/dL Cholesterol/HDL Ratio 4.17 % Lipase (13-60) units/L 05/27/19 Range/Units 13:52 WBC (4.5-11.0) K/mm3 RBC (3.65-5.03) M/mm3 Hgb (11.8-15.2) gm/dl Hct (35.5-45.6) % MCV (84-94) fl MCH (28-32) pg MCHC (32-34) % RDW (13.2-15.2) % Plt Count (140-440) K/mm3 PT (12.2-14.9) Sec. INR (0.87-1.13) D-Dimer (0-234) ng/mlDDU Sodium 138 (137-145) mmol/L Potassium 4.7 D (3.6-5.0) mmol/L Chloride 95.9 L (98-107) mmol/L Carbon Dioxide 28 (22-30) mmol/L Anion Gap 19 mmol/L BUN 18 (9-20) mg/dL Creatinine 5.7 H (0.8-1.5) mg/dL Estimated GFR 14 ml/min BUN/Creatinine Ratio 3 % Glucose 276 H (75-100) mg/dL Calcium 8.4 (8.4-10.2) mg/dL Magnesium 1.90 (1.7-2.3) mg/dL Total Bilirubin 0.30 (0.1-1.2) mg/dL AST 33 (5-40) units/L ALT 14 (7-56) units/L Alkaline Phosphatase 104 (35-129) units/L Total Creatine Kinase 151 (55-170) units/L Troponin T (0.00-0.029) ng/mL Total Protein 7.4 (6.3-8.2) g/dL Albumin 3.7 L (3.9-5) g/dL Albumin/Globulin Ratio 1.0 % Triglycerides (2-149) mg/dL Cholesterol (50-199) mg/dL LDL Cholesterol Direct (50-130) mg/dL HDL Cholesterol (40-59) mg/dL Cholesterol/HDL Ratio % Lipase 20 (13-60) units/L - EKG Data -: EKG Interpreted by Me EKG shows normal: sinus rhythm Rate: normal - EKG Data 04/02/19 15:05 EKG shows a sinus rhythm, 92 bpm, borderline left axis deviation, QTC prolonged, T-wave inversions in V3, V4, V5 and V6, Q waves noted 1, aVL, borderline left anterior fascicular block, atrial enlargement, abnormal EKG, no endorsement of chest pain, this EKG is not consistent with ST elevation myocardial infarction. - Radiology Data Radiology results: report reviewed, image reviewed interpreted by me: X-ray of the chest shows pulmonary vascular congestion versus infiltrates Print Report Referring Physician: SOPHIA CLINE Patient Name: VINEET ALONSO Date of : 1980 Sex: Male Report Date: 2019-04-02 Report Status: Finalized [place] [address] Cat Scan Report Signed Patient: VINEET ALONSO MR#: [id number] : 1980 Acct:[id number] Age/Sex: 38 / M ADM Date: 04/02/19 Loc: ED Attending Dr: Ordering Physician: SOPHIA CLINE MD Date of Service: 04/02/19 Procedure(s): CT abdomen pelvis wo con Accession Number(s): [id number] cc: SOPHIA CLINE MD CT ABDOMEN PELVIS WITHOUT CONTRAST: HISTORY: Abdominal pain, short of breath. COMPARISON: none. TECHNIQUE: Helical CT in 1.25mm intervals without IV contrast. Sagittal and coronal reconstructions. FINDINGS: Lung bases: Patchy infiltrates are identified in both lower lung zones, correlate for pneumonia. Heart size is borderline. Liver: Normal. Biliary system: Normal. Pancreas: Normal. Spleen: Normal. Kidneys/ureters/bladder: Normal. Adrenal glands: Normal. Aorta: Normal. Intestines: Normal. Appendix: Normal. Pelvic viscera: Normal. Ascites: None. Adenopathy: None. Musculoskeletal: Normal. IMPRESSION: Bilateral infiltrates are suspected at the lung bases. Correlate for pneumonia. No acute abdominal process is identified. Transcribed By: TTR Dictated By: STEFANIA TOLBERT JR, MD Electronically Authenticated By: STEFANIA TOLBERT JR, MD Signed Date/Time: 04/02/19 1451 Print Report Referring Physician: SOPHIA CLINE Patient Name: VINEET ALONSO Date of : 1980 Sex: Male Report Date: 2019-04-02 Report Status: Finalized Findings [address] [address] XRay Report Signed Patient: VINEET ALONSO MR#: [id number] : 1980 Acct:[id number] Age/Sex: 38 / M ADM Date: 04/02/19 Loc: ED Attending Dr: Ordering Physician: SOPHIA CLINE MD Date of Service: 04/02/19 Procedure(s): XR chest 1V ap Accession Number(s): [id number] cc: SOPHIA CLINE MD Fluoro Time In Minutes: AP CHEST: HISTORY: Dyspnea There is hazy airspace opacity in the left upper lobe concerning for an infiltrate. No pleural effusion or p neumothorax. Heart size is at the upper limits of normal. Right IJ venous catheter is in good position. IMPRESSION: Left upper lobe infiltrate. Transcribed By: TTR Dictated By: STEFANIA TOLBERT JR, MD Electronically Authenticated By: STEFANIA TOLBERT JR, MD Signed Date/Time: 04/02/19 2841 - Medical Decision Making Differential diagnosis, including without limited to: Congestive heart failure, pericardial effusion, pneumonia, electrolyte derangement, fluid overload, obstructive sleep apnea Assessment and plan: 38-year-old gentleman with a complaints of shortness of breath and nonspecific abdominal pain. The patient is afebrile with reassuring vital signs. Think pulmonary embolus is unlikely as the patient is not tachycardic or hypoxic. Bedside ultrasound transthoracic echocardiogram shows grossly unremarkable left ventricular systolic function, and no large significant pericardial effusion. X-ray the chest suggests infiltrates versus pulmonary vascular congestion. CT scan of the abdomen and pelvis suggests infiltrates. Patient will be treated empirically with high-dose Lasix, after consultation with covering nephrology, Dr. Radford, who agrees to follow in consultation, and also empiric antibiotic coverage. Case presented to Hospital physician, Dr. Karime Poe, who will accept the patient to the medical service. Nephrology to arrange dialysis tomorrow. Nuclear medicine study ordered, however, because of current issues, we are not able to perform a complete ventilation perfusion scan, the technologist informs me he can only perform a perfusion study, however, based off of the available information, I think pulmonary embolus is unlikely, and it is my opinion that systemic anticoagulation poses significant risks to the patient. This is discussed with the Hospital physician, Dr. Karime poe, and I will defer to the inpatient team to further up on the nuclear medicine study. Critical Care Time: Yes Critical care time in (mins) excluding proc time.: 35 Critical care attestation.: If time is entered above; I have spent that time in minutes in the direct care of this critically ill patient, excluding procedure time. ED Disposition Clinical Impression: ESRD (end stage renal disease) on dialysis, Dyspnea Disposition: OP ADMIT IP TO THIS HOSP Is pt being admited?: Yes Does the pt Need Aspirin: Yes Condition: Stable
[2019-04-02 14:06] LABS: Hematocrit 23.3 % (35.5-45.6); Hemoglobin 7.7 gm/dl (11.8-15.2); Mean Corpuscular HGB Conc 33 % (32-34); Mean Corpuscular Volume 91 fl (84-94); Platelet Count 165 K/mm3 (140-440); Red Blood Count 2.56 M/mm3 (3.65-5.03); Red Cell Distribution Width 15.1 % (13.2-15.2)
[2019-04-02 14:16] LABS: INR 1.06 (0.87-1.13)
[2019-04-02 14:30] LABS: Albumin 3.7 g/dL (3.9-5); Calcium 8.4 mg/dL (8.4-10.2)
[2019-04-02 14:42] LABS: Chol/HDL Ratio 4.17 %
[2019-04-02] MEDS ORDERED: LASIX IV ONE (14:56)
--- NOTE | 2019-04-02 14:56 | Cat Scan Report ---
CT ABDOMEN PELVIS WITHOUT CONTRAST: HISTORY: Abdominal pain, short of breath. COMPARISON: none. TECHNIQUE: Helical CT in 1.25mm intervals without IV contrast. Sagittal and coronal reconstructions. FINDINGS: Lung bases: Patchy infiltrates are identified in both lower lung zones, correlate for pneumonia. Heart size is borderline. Liver: Normal. Biliary system: Normal. Pancreas: Normal. Spleen: Normal. Kidneys/ureters/bladder: Normal. Adrenal glands: Normal. Aorta: Normal. Intestines: Normal. Appendix: Normal. Pelvic viscera: Normal. Ascites: None. Adenopathy: None. Musculoskeletal: Normal. IMPRESSION: Bilateral infiltrates are suspected at the lung bases. Correlate for pneumonia. No acute abdominal process is identified.
[2019-04-02] MEDS ORDERED: LEVAQUIN 500MG/100ML 500 MG/100 ML BAG IV ONE ×2 (14:58→15:56)
[2019-04-02] MEDS ORDERED: BABY ASPIRIN PO ONE (15:09)
--- NOTE | 2019-04-02 15:09 | XRay Report ---
AP CHEST: HISTORY: Dyspnea There is hazy airspace opacity in the left upper lobe concerning for an infiltrate. No pleural effusion or pneumothorax. Heart size is at the upper limits of normal. Right IJ venous catheter is in good position. IMPRESSION: Left upper lobe infiltrate.
[2019-04-02] MEDS ORDERED: BABY ASPIRIN ONE (15:56)
[2019-04-02] MEDS ORDERED: LASIX ONE (15:56)
[2019-04-02] MEDS ORDERED: NORMODYNE IV ONE ×2 (15:58→16:05)
[2019-04-02] MEDS ORDERED: NORCO 7.5/325 PO PRN (17:35)
[2019-04-02] MEDS ORDERED: APRESOLINE IV PRN (17:36)
[2019-04-02] MEDS ORDERED: SODIUM CHLORIDE FLUSH SYRINGE 10 ML IV PRN (17:44)
[2019-04-02] MEDS ORDERED: PERCOCET 5/325 PO PRN (17:44)
[2019-04-02] MEDS ORDERED: TYLENOL PO PRN (17:44)
[2019-04-02] MEDS ORDERED: ZOFRAN IV ONE (17:44)
[2019-04-02] MEDS ORDERED: NON-FORMULARY (Clonidine Hcl [Catapres] 0.3 MG) PO SCH (17:45)
--- NOTE | 2019-04-02 17:47 | Nuclear Medicine Report ---
PROCEDURE: Nuclear medicine perfusion lung scan. TECHNIQUE: Perfusion imaging was done in multiple projections using 4.5 mCi of technetium 99m MAA. HISTORY: Shortness of breath. COMPARISONS: Nuclear medicine ventilation and perfusion lung scan 01/12/2019. FINDINGS: The perfusion images are inhomogeneous. There are some small and medium sized peripheral perfusion ab normalities in the right upper lobe and left lung apex which were not clearly present on the previous study. Assuming that these are mismatched defects which is not known, the scan carries a moderate pr obability of pulmonary embolism. More accurate evaluation could be done with a CT angiogram of the ch est if clinically indicated. IMPRESSION: Moderate probability of pulmonary embolism. This document is electronically signed by Rohan Ye MD., Apr 02 2019 05:44:30 PM ET
--- NOTE | 2019-04-02 17:47 | History and Physical Report ---
History of Present Illness Date of examination: 04/02/19 Date of admission: 04/02/19 15:10 Chief complaint: Increasing shortness of breath for 3 days History of present illness: 38-year-old -[place] male with history of insulin-dependent diabetes, end-stage renal disease and hypertension and GERD comes in for increasing shortness of breath for the last 3 days. Patient has shortness of breath on minimal exertion and also not able to lie flat. Patient has class IV NYHA symptoms. No fever or chills. Cough present. No chest pain. Patient has had the hemodialysis on a regular basis. Cough is productive of mucoid sputum. No recent travel. No weight loss. Past Medical History Previous Medical History?: Yes Hypertension: Yes CVA: Yes (TIA's) Heart Attack/AMI: Yes Diabetes: Yes Pulmonary Embolism: Yes Renal Disease: Yes Headaches / Migraines: Yes (Migraines) Additional medical history: gastroparesis, PE Surgical History Past Surgical History?: Yes Additional Surgical History: left eye surgery, right toe amputation, right chest vas cath. GRAFT RIGHT UPPER ARM. Graft revision 06/2018 per pt Social History Smoking Status: Current Some Day Smoker Family history Htn Medications Home Medications: Home Medications Medication Instructions Recorded Confirmed Last Taken Type Calcium Acetate [Phoslo] 667 mg PO TID #90 capsule 01/18/19 03/29/19 03/28/19 Rx 1 tab Insulin Glargine [Lantus VIAL] 20 units SQ QHS #1 mo 01/18/19 03/29/19 03/28/19 Rx 1 tab Pantoprazole [Protonix TAB] 40 mg PO QDAY #30 tablet 01/18/19 03/29/19 03/28/19 Rx 1 tab Clonidine HCl [Catapres] 0.3 mg PO BID 03/01/19 03/29/19 03/28/19 History 1 tab amLODIPine [Norvasc] 5 mg PO BID 03/01/19 03/29/19 03/29/19 History 1 tab HYDROcodone/APAP 7.5-325 [[place] 1 each PO Q6HR PRN #40 tablet 03/29/19 Unknown Rx 7.5/325] Review of systems ROS: Stated complaint: BARB Other details as noted in HPI Constitutional: malaise, weakness ENT: denies: hearing loss Respiratory: shortness of breath on minimal exertion, orthopnea Cardiovascular: denies: chest pain Gastrointestinal: abdominal pain Genitourinary: denies: dysuria Musculoskeletal: denies: myalgia Skin: denies: lesions Neurological: weakness 14 point review of systems done--otherwise negative Medications and Allergies Allergies Allergy/AdvReac Type Severity Reaction Status Date / Time cefazolin [From [facility]] Allergy Vomiting Verified 07/21/18 13:02 shellfish derived Allergy Anaphylaxis Verified 06/08/18 15:09 iodine AdvReac Severe Vomiting Verified 06/08/18 15:09 IV dye AdvReac Severe Vomiting Uncoded 04/28/18 08:49 Home Medications Medication Instructions Recorded Confirmed Last Taken Type Calcium Acetate [Phoslo] 667 mg PO TID #90 capsule 01/18/19 03/29/19 03/28/19 Rx 1 tab Insulin Glargine [Lantus VIAL] 20 units SQ QHS #1 mo 01/18/19 03/29/19 03/28/19 Rx 1 tab Pantoprazole [Protonix TAB] 40 mg PO QDAY #30 tablet 01/18/19 03/29/19 03/28/19 Rx 1 tab Clonidine HCl [Catapres] 0.3 mg PO BID 03/01/19 03/29/19 03/28/19 History 1 tab amLODIPine [Norvasc] 5 mg PO BID 03/01/19 03/29/19 03/29/19 History 1 tab HYDROcodone/APAP 7.5-325 [[place] 1 each PO Q6HR PRN #40 tablet 03/29/19 Unknown Rx 7.5/325] Active Meds: Active Medications Acetaminophen/Hydrocodone Bitart ([place] 7.5/325) 1 each PO Q6HR PRN PRN Reason: Pain Calcium Acetate (Phoslo) 667 mg PO TID [facility] Heparin Sodium (Porcine) (Heparin) 5,000 unit SUB-Q Q12HR [facility] Hydralazine HCl (Apresoline) 10 mg IV Q2H PRN PRN Reason: Blood Pressure Insulin Glargine (Lantus) 20 units SUB-Q QHS [facility] Miscellaneous Medication (Clonidine Hcl [Catapres]) 0.3 mg PO Q8H [facility]INE Pantoprazole Sodium (Protonix) 40 mg PO QDAY [facility] Exam - Physical Exam Narrative exam: Lying in bed uncomfortable - Constitutional Vitals: Temp Pulse Resp BP Pulse Ox 99.2 F 102 H 16 200/117 99 04/02/19 17:28 04/02/19 17:28 04/02/19 17:28 04/02/19 17:28 04/02/19 17:28 General appearance: Present: severe distress, well-nourished - EENT Eyes: Present: PERRL ENT: hearing intact, clear oral mucosa - Neck Neck: Present: supple, normal ROM - Respiratory Respiratory effort: normal Respiratory: bilateral: CTA, rales, rhonchi - Cardiovascular Heart rate: 92 Rhythm: regular Heart Sounds: Present: S1 & S2. Absent: rub, click - Extremities Extremities: no ischemia, pulses intact, pulses symmetrical, No edema Peripheral Pulses: within normal limits - Abdominal General gastrointestinal: Present: soft, non-tender, non-distended, normal bowel sounds Male genitourinary: Present: normal - Rectal Rectal Exam: deferred - Integumentary Integumentary: Present: clear, warm, dry - Musculoskeletal Musculoskeletal: gait normal, strength equal bilaterally - Psychiatric Psychiatric: appropriate mood/affect, intact judgment & insight - Neurologic Neurologic: CNII-XII intact, moves all extremities - Allied Health Allied health notes reviewed: nursing, case management Results - Labs CBC & Chem 7: 04/02/19 13:52 04/02/19 13:52 Labs: Laboratory Last Values WBC 10.6 K/mm3 (4.5-11.0) 04/02/19 13:52 RBC 2.56 M/mm3 (3.65-5.03) L 04/02/19 13:52 Hgb 7.7 gm/dl (11.8-15.2) L 04/02/19 13:52 Hct 23.3 % (35.5-45.6) L 04/02/19 13:52 MCV 91 fl (84-94) 04/02/19 13:52 MCH 30 pg (28-32) 04/02/19 13:52 MCHC 33 % (32-34) 04/02/19 13:52 RDW 15.1 % (13.2-15.2) 04/02/19 13:52 Plt Count 165 K/mm3 (140-440) 04/02/19 13:52 PT 14.5 Sec. (12.2-14.9) 04/02/19 13:52 INR 1.06 (0.87-1.13) 04/02/19 13:52 1343.89 ng/mlDDU (0-234) H 04/02/19 13:52 Sodium 138 mmol/L (137-145) 04/02/19 13:52 Potassium 4.7 mmol/L (3.6-5.0) D 04/02/19 13:52 Chloride 95.9 mmol/L (98-107) L 04/02/19 13:52 Carbon Dioxide 28 mmol/L (22-30) 04/02/19 13:52 19 mmol/L 04/02/19 13:52 BUN 18 mg/dL (9-20) 04/02/19 13:52 5.7 mg/dL (0.8-1.5) H 04/02/19 13:52 Estimated GFR 14 ml/min 04/02/19 13:52 3 % 04/02/19 13:52 Glucose 276 mg/dL (75-100) H 04/02/19 13:52 Lactic Acid 2.30 mmol/L (0.7-2.0) H* 04/02/19 15:23 Calcium 8.4 mg/dL (8.4-10.2) 04/02/19 13:52 Magnesium 1.90 mg/dL (1.7-2.3) 04/02/19 13:52 0.30 mg/dL (0.1-1.2) 04/02/19 13:52 AST 33 units/L (5-40) 04/02/19 13:52 ALT 14 units/L (7-56) 04/02/19 13:52 104 units/L (35-129) 04/02/19 13:52 151 units/L (55-170) 04/02/19 13:52 0.404 ng/mL (0.00-0.029) H* 04/02/19 13:52 NT-Pro-B Natriuret Pep 05832 pg/mL (0-450) H 04/02/19 13:52 7.4 g/dL (6.3-8.2) 04/02/19 13:52 3.7 g/dL (3.9-5) L 04/02/19 13:52 1.0 % 04/02/19 13:52 Triglycerides 220 mg/dL (2-149) H 04/02/19 13:52 Cholesterol 146 mg/dL (50-199) 04/02/19 13:52 81 mg/dL (50-130) 04/02/19 13:52 35 mg/dL (40-59) L 04/02/19 13:52 4.17 % 04/02/19 13:52 20 units/L (13-60) 04/02/19 13:52 Short CBC 04/02/19 Range/Units 13:52 WBC 10.6 (4.5-11.0) K/mm3 Hgb 7.7 L (11.8-15.2) gm/dl Hct 23.3 L (35.5-45.6) % Plt Count 165 (140-440) K/mm3 BMP 04/02/19 13:52 Sodium 138 Potassium 4.7 D Chloride 95.9 L Carbon Dioxide 28 BUN 18 Creatinine 5.7 H Glucose 276 H Calcium 8.4 Cardiac Enzymes 04/02/19 04/02/19 Range/Units 13:52 13:52 Total Creatine Kinase 151 (55-170) units/L Troponin T 0.404 H* (0.00-0.029) ng/mL Liver Function 04/02/19 Range/Units 13:52 Total Bilirubin 0.30 (0.1-1.2) mg/dL AST 33 (5-40) units/L ALT 14 (7-56) units/L Alkaline Phosphatase 104 (35-129) units/L Albumin 3.7 L (3.9-5) g/dL - Imaging and Cardiology EKG: report reviewed Chest x-ray: report reviewed Abdominal x-ray: report reviewed Imaging and Cardiology: Chest x-ray IMPRESSION: Left upper lobe infiltrate. CT abdomen Impression Bilateral infiltrates are suspected at the lung bases. Correlate for pneumonia. No acute abdominal process is identified. VQ scan IMPRESSION: Moderate probability of pulmonary embolism. Assessment and Plan Advance Directives: Yes (full code) VTE prophylaxis?: Chemical Plan of care discussed with patient/family: Yes - Patient Problems (1) Hypertensive emergency Current Visit: Yes Status: Acute Plan to address problem: The patient is given IV labetalol and IV hydralazine in the emergency room. Patient continues to get IV hydralazine every 2 hours when necessary Cardene drip if necessary. \ Valsartan 160 mg every 12 added Clonidine increased from 0.3 twice a day to every 8hrs. (2) Pulmonary embolism Current Visit: Yes Status: Acute Qualifiers: Chronicity: unspecified Plan to address problem: Moderate probability Patient started on Walker Patient was not started on IV heparin (3) Bilateral pneumonia Current Visit: Yes Status: Acute Qualifiers: Lung location: lower lobe of lung Plan to address problem: Patient is started on IV Levaquin Dual nebs as necessary (4) End-stage renal disease needing dialysis Current Visit: Yes Status: Chronic Plan to address problem: Continue hemodialysis as per schedule (5) Insulin dependent diabetes mellitus Current Visit: Yes Status: Chronic Plan to address problem: Continue home insulin and coverage Check hemoglobin A1c Edges dosage of Lantus as necessary (6) Elevated lactic acid level Current Visit: Yes Status: Acute Plan to address problem: Secondary to bilateral pneumonia ReCheck lactic acid level (7) Elevated troponin Current Visit: Yes Status: Chronic Plan to address problem: Secondary to end-stage renal disease We will trend the troponin levels (8) DVT prophylaxis Current Visit: Yes Status: Acute Plan to address problem: Heparin 5000 subcutaneous every 12
[2019-04-02] MEDS ORDERED: CATAPRES ONE ×2 (17:49)
[2019-04-02] MEDS: PROTONIX PO SCH (17:55)
[2019-04-02] MEDS: CATAPRES PO SCH ×2 (17:55→18:18)
[2019-04-02] MEDS ORDERED: CATAPRES PO ONE ×2 (17:55)
[2019-04-02] MEDS ORDERED: APRESOLINE ONE ×2 (18:28→20:21)
[2019-04-02] MEDS: NORVASC PO SCH (18:38)
[2019-04-02] MEDS ORDERED: MORPHINE ONE (18:42)
[2019-04-02] MEDS: MORPHINE IV PRN (18:45)
[2019-04-02] MEDS ORDERED: LEVAQUIN 750MG/150ML 750 MG/150 ML BAG IV SCH (19:00)
[2019-04-02] MEDS ORDERED: NITRO-BID 2% TP ONE (19:27)
[2019-04-02] MEDS ORDERED: APRESOLINE IV ONE (19:28)
[2019-04-02] MEDS ORDERED: ZOFRAN ONE (20:22)
[2019-04-02] MEDS: ZOFRAN IV PRN (20:30)
[2019-04-02] MEDS ORDERED: HEPARIN SUB-Q SCH (22:00)
[2019-04-02] MEDS ORDERED: BENADRYL IV ONE (22:33)
[2019-04-02] MEDS: HumaLOG SUB-Q SCH (22:59)
[2019-04-02] MEDS: PEPCID PO SCH (23:03)
[2019-04-02] MEDS: DIOVAN PO SCH (23:03)
[2019-04-02] MEDS: ELIQUIS PO SCH (23:03)
[2019-04-02] MEDS: SODIUM CHLORIDE FLUSH SYRINGE 10 ML IV SCH (23:04)
[2019-04-02] MEDS: PHOSLO PO SCH (23:06)
[2019-04-02] MEDS: APRESOLINE IV PRN (23:50)
[2019-04-03] MEDS: LANTUS SUB-Q SCH ×2 (00:23→22:32)
[2019-04-03] MEDS: CATAPRES PO SCH ×3 (02:14→18:47)
[2019-04-03] MEDS: MORPHINE IV PRN ×5 (02:14→22:32)
[2019-04-03] MEDS: ZOFRAN IV PRN ×3 (06:28→22:32)
[2019-04-03] MEDS: APRESOLINE IV PRN (06:29)
[2019-04-03 06:54] LABS: Calcium 7.9 mg/dL (8.4-10.2)
[2019-04-03] MEDS: PHOSLO PO SCH ×3 (09:03→22:24)
[2019-04-03] MEDS: DIOVAN PO SCH ×2 (10:07→22:33)
[2019-04-03] MEDS: ELIQUIS PO SCH ×2 (10:13→22:33)
[2019-04-03] MEDS: NORVASC PO SCH (10:13)
[2019-04-03] MEDS: PROTONIX PO SCH (10:14)
[2019-04-03] MEDS: NORMODYNE PO SCH ×3 (10:15→22:33)
[2019-04-03] MEDS: PEPCID PO SCH ×2 (10:16→22:25)
[2019-04-03] MEDS: SODIUM CHLORIDE FLUSH SYRINGE 10 ML IV SCH ×2 (10:28→22:33)
--- NOTE | 2019-04-03 10:39 | Consultation ---
History of Present Illness - History of Present Illness This is a pleasant 38-year-old gentleman. 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 He has a past medical history of end-stage renal disease on dialysis, Tuesday, Tuesday, Tuesday. He also has a history of hypertension. He presents to the ER today with a complaint of painless shortness of breath. It started over the past 2-3 days. He has new-onset orthopnea. It worsens with physical exertion. It decreases with rest. He received 3-1/2 hours of dialysis today. He reports that he still feels that he is short of breath. He does not feel fluid overloaded clinically. Patient had an exercise cardiac stress test January 2019, which was interpreted as negative. The patient recently had an elective vascular surgery procedure performed on his right upper extremity graft. He endorses new-onset 3 pillow orthopnea. He has no chest pain. He has epigastric and periumbilical abdominal pain. The pain is achy, increases with palpation and decreases with rest. He denies dysuria. -: Gradual, days(s) Quality: aching Consistency: intermittent Improves with: rest Worsens with: movement ROS: Stated complaint: BARB Other details as noted in HPI Constitutional: malaise, weakness ENT: denies: hearing loss Respiratory: shortness of breath Cardiovascular: denies: chest pain Gastrointestinal: abdominal pain Genitourinary: denies: dysuria Musculoskeletal: denies: myalgia Skin: denies: lesions Neurological: weakness - Past Medical History Previous Medical History?: Yes Hx Hypertension: Yes Hx CVA: Yes (TIA's) Hx Heart Attack/AMI: Yes Hx Congestive Heart Failure: No Hx Diabetes: Yes Hx Pulmonary Embolism: Yes Hx Renal Disease: Yes Hx Headaches / Migraines: Yes (Migraines) Hx Psychiatric Treatment: No Hx Asthma: No Hx COPD: No Additional medical history: gastroparesis, PE - Surgical History Past Surgical History?: Yes Additional Surgical History: left eye surgery, right toe amputation, right chest vas cath. GRAFT RIGHT UPPER ARM. Graft revision 06/2018 per pt - Social History Smoking Status: Current Some Day Smoker Medications and Allergies Allergies Allergy/AdvReac Type Severity Reaction Status Date / Time cefazolin [From [facility]] Allergy Vomiting Verified 07/21/18 13:02 shellfish derived Allergy Anaphylaxis Verified 06/08/18 15:09 iodine AdvReac Severe Vomiting Verified 06/08/18 15:09 IV dye AdvReac Severe Vomiting Uncoded 04/28/18 08:49 Home Medications Medication Instructions Recorded Confirmed Last Taken Type Clonidine HCl [Catapres] 0.3 mg PO BID 03/01/19 04/02/19 04/02/19 History Insulin Glargine [Lantus] 0 units SQ QHS 04/02/19 04/02/19 Unknown History Active Meds: Active Medications Acetaminophen (Tylenol) 650 mg PO Q4H PRN PRN Reason: Pain MILD(1-3)/Fever >100.5/SOARES Acetaminophen/Hydrocodone Bitart ([place] 7.5/325) 1 each PO Q6HR PRN PRN Reason: Pain Amlodipine Besylate (Norvasc) 10 mg PO DAILY [facility] Last Admin: 04/03/19 10:13 Dose: 10 mg Documented by: Apixaban (Eliquis) 5 mg PO Q12HR [facility]; Protocol Last Admin: 04/03/19 10:13 Dose: 5 mg Documented by: Calcium Acetate (Phoslo) 667 mg PO TID [facility] Last Admin: 04/03/19 09:03 Dose: Not Given Documented by: Clonidine HCl (Catapres) 0.3 mg PO Q8H [facility] Last Admin: 04/03/19 02:14 Dose: 0.3 mg Documented by: Famotidine (Pepcid) 10 mg PO BID [facility] Last Admin: 04/03/19 10:16 Dose: 10 mg Documented by: Hydralazine HCl (Apresoline) 10 mg IV Q4HR PRN PRN Reason: Blood Pressure Last Admin: 04/03/19 06:29 Dose: 10 mg Documented by: Levofloxacin/Dextrose (Levaquin 500mg/100ml) 500 mg in 100 mls @ 100 mls/hr IV Q48H [facility] Insulin Glargine (Lantus) 20 units SUB-Q QHS [facility] Last Admin: 04/03/19 00:23 Dose: 20 units Documented by: Insulin Human Lispro (Humalog) 0 unit SUB-Q [facility]; Protocol Last Admin: 04/02/19 22:59 Dose: 8 unit Documented by: Labetalol HCl (Normodyne) 100 mg PO Q8HR [facility] Last Admin: 04/03/19 10:15 Dose: 100 mg Documented by: Morphine Sulfate (Morphine) 2 mg IV Q4H PRN PRN Reason: Pain, Moderate (4-6) Last Admin: 04/03/19 10:21 Dose: 2 mg Documented by: Ondansetron HCl (Zofran) 4 mg IV Q8H PRN PRN Reason: Nausea And Vomiting Last Admin: 04/03/19 10:18 Dose: 4 mg Documented by: Oxycodone/Acetaminophen (Percocet 5/325) 1 tab PO Q6H PRN PRN Reason: Pain, Moderate (4-6) Pantoprazole Sodium (Protonix) 40 mg PO QDAY [facility] Last Admin: 04/03/19 10:14 Dose: 40 mg Documented by: Sodium Chloride (Sodium Chloride Flush Syringe 10 Ml) 10 ml IV BID [facility] Last Admin: 04/03/19 10:28 Dose: 10 ml Documented by: Sodium Chloride (Sodium Chloride Flush Syringe 10 Ml) 10 ml IV PRN PRN PRN Reason: LINE FLUSH Valsartan (Diovan) 160 mg PO BID [facility] Last Admin: 04/03/19 10:07 Dose: 160 mg Documented by: Exam - Vital Signs Vital signs: Vital Signs Pulse Ox 99 04/02/19 13:07 - Physical Exam Narrative exam: - General Limitations: No Limitations General appearance: alert, in no apparent distress - Head Head exam: Present: atraumatic, normocephalic - Eye Eye exam: Present: normal appearance, EOMI. Absent: nystagmus - ENT ENT exam: Present: normal exam, normal orophraynx, mucous membranes moist, normal external ear exam - Neck Neck exam: Present: normal inspection, full ROM. Absent: tenderness, meningismus - Respiratory Respiratory exam: Present: rales (very faint rales noted at the base), decreased breath sounds, other (there is a right-sided permacath noted, with no redness, pus or streaking). Absent: respiratory distress - Cardiovascular Cardiovascular Exam: Present: regular rate, normal rhythm, normal heart sounds. Absent: bradycardia, tachycardia, irregular rhythm, systolic murmur, diastolic murmur, rubs, gallop - GI/Abdominal GI/Abdominal exam: Present: soft. Absent: distended, tenderness, guarding, rebound, rigid, pulsatile mass - Rectal Rectal exam: Present: deferred - Extremities Exam Extremities exam: Present: normal inspection (right upper extremity graft, with no redness, pus or streaking.), full ROM, pedal edema (1+ edema), other (2+ pulses noted in the bilateral upper, lower extremities. Compartments soft. No long bony tenderness. The pelvis is stable.). Absent: calf tenderness - Back Exam Back exam: Present: normal inspection, full ROM. Absent: tenderness, CVA tenderness (R), CVA tenderness (L), paraspinal tenderness, vertebral tenderness - Neurological Exam Neurological exam: Present: alert, oriented X3, other (Extraocular movements intact. Tongue midline. No facial droop. Facial sensation intact to light touch in the V1, V2, V3 distribution bilaterally. 5 and 5 strength in 4 extremities.. Sensation is intact to light touch in 4 extremities.). Absent: motor sensory deficit - Psychiatric Psychiatric exam: Present: normal affect, normal mood - Skin Skin exam: Present: warm, dry, intact, normal color. Absent: rash Results - Lab Results 04/02/19 13:52 04/03/19 05:50 Most recent lab results Calcium 7.9 mg/dL (8.4-10.2) L 04/03/19 05:50 Magnesium 1.90 mg/dL (1.7-2.3) 04/02/19 13:52 Assessment and Plan Impression: * End stage renal disease * N/V secondary to diabetic gastroparesis * shortness of breath * Elevated troponin, chronic * Type I DM * Accelerated hypertension, now controlled * Anemia secondary to ESRD * Secondary hyperparathyroidism Plan: Hemodialysis today, continue MWF schedule UF as tolerated Continue current antiHTN medicatons Renal/ADA diet Epogen TIW prn Stable for d/c from a renal standpoint following dialysis today
[2019-04-03] MEDS ORDERED: NACL 0.9% 100 ML IV PRN (10:42)
[2019-04-03] MEDS: HumaLOG SUB-Q SCH ×5 (10:43→22:32)
--- NOTE | 2019-04-03 15:35 | Progress Note ---
Assessment and Plan / Hypertensive emergency The patient is given IV labetalol and IV hydralazine in the emergency room. Patient continues to get IV hydralazine every 2 hours when necessary cont Valsartan 160 mg every 12h, Clonidine increased from 0.3 twice a day to every 8hrs. will also add labetalol 100mg TID / Pulmonary embolism, Moderate probability Patient started on eliquis po / Bilateral pneumonia Patient is started on IV Levaquin Dual nebs as necessary / End-stage renal disease needing dialysis Continue hemodialysis as per schedule /Insulin dependent diabetes mellitus Continue home insulin and coverage hemoglobin A1c 7.7 adjust dosage of Lantus as necessary / Elevated lactic acid level Secondary to bilateral pneumonia cont to trend / Elevated troponin Secondary to end-stage renal disease chronically elevated, denies chest pain / DVT prophylaxis on eliquis discharge when BP improves Brief history: 38-year-old -[place]ym[place] male with history of insulin-dependent diabetes, end-stage renal disease and hypertension and GERD comes in for increasing shortness of breath for the last 3 days with productive Cough. Initial work up showed BP upto 228/118, b/l PNA and PE. Admitted for further evaluated and management. Hospitalist physical: GENERAL: well-developed and well-nourished male lying on bed appeared to be in no discomfort. HEENT: Normocephalic. Atraumatic. No conjunctival congestion or icterus. Patient has moist mucous membranes. NECK: Supple. Trachea midline. CHEST/LUNGS: coarse BS auscultated bilaterally, breathing nonlabored. No wheezes HEART/CARDIOVASCULAR: Regular in rate and rhythm. S1 and S2 positive. ABDOMEN: Abdomen is soft, nontender. Patient has normal bowel sounds. SKIN: There is no rash. Warm and dry. NEURO: No focal motor deficit. Follows command. MUSCULOSKELETAL: No joint effusion or tenderness. EXTRIMITY: No edema, no cyanosis or clubbing. PSYCH: Cooperative. Subjective Date of service: 04/03/19 Interval history: Patient seen and examined. Medical records and medication list reviewed. No acute event overnight noted by the RN. Patient denies any chest pain or difficulty breathing. Patient is tolerating diet. Plan for HD today, BP still unstable Discussed plan of care at bedside with patient. Objective - Constitutional Vitals: Vital Signs - 12hr 05/28/19 05/28/19 05/28/19 04:14 06:18 08:38 Temperature 98.2 F 98.8 F 98.7 F Pulse Rate 101 H 107 H 109 H Respiratory 20 20 18 Rate Blood Pressure 206/109 Blood Pressure 170/94 212/105 [Left] O2 Sat by Pulse 97 3 L 98 Oximetry 04/03/19 04/03/19 04/03/19 10:07 10:13 10:15 Temperature Pulse Rate 112 H Respiratory Rate Blood Pressure 220/103 220/103 220/103 Blood Pressure [Left] O2 Sat by Pulse Oximetry 04/03/19 04/03/19 04/03/19 10:36 12:45 13:20 Temperature 98.2 F Pulse Rate 108 H Respiratory 18 Rate Blood Pressure 220/103 164/105 163/94 Blood Pressure [Left] O2 Sat by Pulse Oximetry 04/03/19 04/03/19 04/03/19 13:30 13:45 14:00 Temperature Pulse Rate 102 H 99 H 98 H Respiratory Rate Blood Pressure 184/104 177/106 150/102 Blood Pressure [Left] O2 Sat by Pulse Oximetry 04/03/19 04/03/19 14:15 14:30 Temperature Pulse Rate 101 H 106 H Respiratory Rate Blood Pressure 158/98 183/99 Blood Pressure [Left] O2 Sat by Pulse Oximetry - Labs CBC & Chem 7: 04/02/19 13:52 04/03/19 05:50 Labs: Abnormal lab results 04/02/19 04/02/19 04/02/19 Range/Units 15:23 17:57 18:11 Chloride (98-107) mmol/L BUN (9-20) mg/dL Creatinine (0.8-1.5) mg/dL Glucose (75-100) mg/dL POC Glucose 388 H (70-105) Hemoglobin A1c (4-6) % Lactic Acid 2.30 H* 3.40 H* (0.7-2.0) mmol/L Calcium (8.4-10.2) mg/dL 04/02/19 04/02/19 04/03/19 Range/Units 18:11 20:51 05:50 Chloride 96.6 L (98-107) mmol/L BUN 28 H (9-20) mg/dL Creatinine 7.4 H (0.8-1.5) mg/dL Glucose 308 H (75-100) mg/dL POC Glucose 393 H (70-105) Hemoglobin A1c 7.7 H (4-6) % Lactic Acid (0.7-2.0) mmol/L Calcium 7.9 L (8.4-10.2) mg/dL 04/03/19 Range/Units 08:45 Chloride (98-107) mmol/L BUN (9-20) mg/dL Creatinine (0.8-1.5) mg/dL Glucose (75-100) mg/dL POC Glucose 348 H (70-105) Hemoglobin A1c (4-6) % Lactic Acid (0.7-2.0) mmol/L Calcium (8.4-10.2) mg/dL
[2019-04-03] MEDS ORDERED: BENADRYL PO PRN (23:16)
[2019-04-04] MEDS: CATAPRES PO SCH ×3 (03:14→19:39)
[2019-04-04] MEDS: NORMODYNE PO SCH ×2 (05:55→19:29)
[2019-04-04] MEDS ORDERED: LEVAQUIN 500MG/100ML 500 MG/100 ML BAG IV SCH (10:00)
--- NOTE | 2019-04-04 10:28 | Progress Note ---
Assessment and Plan Impression: * End stage renal disease * N/V secondary to diabetic gastroparesis * shortness of breath * Elevated troponin, chronic * Type I DM * Accelerated hypertension, now controlled * Anemia secondary to ESRD * Secondary hyperparathyroidism Plan: Hemodialysis today, continue MWF schedule UF as tolerated Continue current antiHTN medicatons Renal/ADA diet Epogen TIW prn Stable for d/c from a renal standpoint following dialysis today Subjective Date of service: 04/04/19 Principal diagnosis: esrd Interval history: resting in bed today Objective - Exam Narrative Exam: - General Limitations: No Limitations General appearance: alert, in no apparent distress - Head Head exam: Present: atraumatic, normocephalic - Eye Eye exam: Present: normal appearance, EOMI. Absent: nystagmus - ENT ENT exam: Present: normal exam, normal orophraynx, mucous membranes moist, normal external ear exam - Neck Neck exam: Present: normal inspection, full ROM. Absent: tenderness, meningismus - Respiratory Respiratory exam: Present: rales (very faint rales noted at the base), decreased breath sounds, other (there is a right-sided permacath noted, with no redness, pus or streaking). Absent: respiratory distress - Cardiovascular Cardiovascular Exam: Present: regular rate, normal rhythm, normal heart sounds. Absent: bradycardia, tachycardia, irregular rhythm, systolic murmur, diastolic m urmur, rubs, gallop - GI/Abdominal GI/Abdominal exam: Present: soft. Absent: distended, tenderness, guarding, rebound, rigid, pulsatile mass - Rectal Rectal exam: Present: deferred - Extremities Exam Extremities exam: Present: normal inspection (right upper extremity graft, with no redness, pus or streaking.), full ROM, pedal edema (1+ edema), other (2+ pulses noted in the bilateral upper, lower extremities. Compartments soft. No long bony tenderness. The pelvis is stable.). Absent: calf tenderness - Back Exam Back exam: Present: normal inspection, full ROM. Absent: tenderness, CVA tenderness (R), CVA tenderness (L), paraspinal tenderness, vertebral tenderness - Neurological Exam Neurological exam: Present: alert, oriented X3, other (Extraocular movements intact. Tongue midline. No facial droop. Facial sensation intact to light touch in the V1, V2, V3 distribution bilaterally. 5 and 5 strength in 4 extremities.. Sensation is intact to light touch in 4 extremities.). Absent: motor sensory deficit - Psychiatric Psychiatric exam: Present: normal affect, normal mood - Skin Skin exam: Present: warm, dry, intact, normal color. Absent: rash - Vital Signs Vital signs: Vital Signs - 12hr 04/03/19 04/04/19 04/04/19 23:54 04:54 08:14 Temperature 98.4 F 98.5 F 98.7 F Pulse Rate 104 H 90 95 H Respiratory 18 18 16 Rate Blood Pressure 156/94 157/93 151/95 O2 Sat by Pulse 94 95 94 Oximetry - Lab 04/02/19 13:52 04/03/19 05:50 Most recent lab results Calcium 7.9 mg/dL (8.4-10.2) L 04/03/19 05:50 Magnesium 1.90 mg/dL (1.7-2.3) 04/02/19 13:52 Medications & Allergies - Medications Allergies/Adverse Reactions: Allergies cefazolin [From [facility]] Allergy (Verified 07/21/18 13:02) Vomiting shellfish derived Allergy (Verified 06/08/18 15:09) Anaphylaxis iodine Adverse Reaction (Severe, Verified 06/08/18 15:09) Vomiting IV dye Adverse Reaction (Severe, Uncoded 04/28/18 08:49) Vomiting Home Medications: Home Medications Medication Instructions Recorded Confirmed Last Taken Type Clonidine HCl [Catapres] 0.3 mg PO BID 03/01/19 04/02/19 04/02/19 History Insulin Glargine [Lantus] 0 units SQ QHS 04/02/19 04/02/19 Unknown History Active Medications: Generic Name Dose Route Start Last Admin Trade Name Freq PRN Reason Stop Dose Admin Acetaminophen 650 mg 04/02/19 17:44 Tylenol PO Q4H PRN Pain MILD(1-3)/Fever >100.5/SOARES Acetaminophen/Hydrocodone Bitart 1 each 04/02/19 17:35 [place] 7.5/325 PO Q6HR PRN Pain Amlodipine Besylate 10 mg 04/02/19 18:00 04/03/19 10:13 Norvasc PO 10 mg DAILY SANDRINE Administration Apixaban 5 mg 04/02/19 22:00 04/03/19 22:33 Eliquis PO 5 mg Q12HR SANDRINE Administration Protocol Calcium Acetate 667 mg 04/02/19 20:00 04/03/19 22:24 Phoslo PO Not Given TID SANDRINE Clonidine HCl 0.3 mg 04/03/19 02:00 04/04/19 03:14 Catapres PO 0.3 mg Q8H SANDRINE Administration Diphenhydramine HCl 25 mg 04/03/19 23:16 04/04/19 03:15 Benadryl PO 25 mg QHS PRN Administration Sleep Famotidine 10 mg 04/02/19 22:00 04/03/19 22:25 Pepcid PO Not Given BID [facility] Hydralazine HCl 10 mg 04/02/19 22:32 04/03/19 06:29 Apresoline IV 10 mg Q4HR PRN Administration Blood Pressure Levofloxacin/Dextrose 500 mg in 100 mls @ 100 mls/hr 04/04/19 10:00 Levaquin 500mg/100ml IV Q48H [facility] Sodium Chloride 100 mls @ 999 mls/hr 04/03/19 10:42 Nacl 0.9% IV MARI PRN Hypotension Insulin Glargine 20 units 04/02/19 22:00 04/03/19 22:32 Lantus SUB-Q 20 units QHS SANDRINE Administration Insulin Human Lispro 0 unit 04/02/19 22:00 04/03/19 22:32 Humalog SUB-Q 4 unit ACHS SANDRINE Administration Protocol Labetalol HCl 100 mg 04/03/19 09:00 04/04/19 05:55 Normodyne PO 100 mg Q8HR SANDRINE Administration Morphine Sulfate 2 mg 04/02/19 17:44 04/03/19 22:32 Morphine IV 2 mg Q4H PRN Administration Pain, Moderate (4-6) Ondansetron HCl 4 mg 04/02/19 17:44 04/03/19 22:32 Zofran IV 4 mg Q8H PRN Administration Nausea And Vomiting Oxycodone/Acetaminophen 1 tab 04/02/19 17:44 Percocet 5/325 PO Q6H PRN Pain, Moderate (4-6) Pantoprazole Sodium 40 mg 04/02/19 18:00 04/03/19 10:14 Protonix PO 40 mg QDAY SANDRINE Administration Sodium Chloride 10 ml 04/02/19 22:00 04/03/19 22:33 Sodium Chloride Flush Syringe 10 Ml IV 10 ml BID SANDRINE Administration Sodium Chloride 10 ml 04/02/19 17:44 Sodium Chloride Flush Syringe 10 Ml IV PRN PRN LINE FLUSH Valsartan 160 mg 04/02/19 22:00 04/03/19 22:33 Diovan PO 160 mg BID SANDRINE Administration
[2019-04-04] MEDS: DIOVAN PO SCH (10:40)
[2019-04-04] MEDS: NORVASC PO SCH (10:41)
[2019-04-04] MEDS: PROTONIX PO SCH (10:41)
[2019-04-04] MEDS: ELIQUIS PO SCH (10:41)
[2019-04-04] MEDS: PEPCID PO SCH (10:41)
[2019-04-04] MEDS: PHOSLO PO SCH ×2 (10:41→19:13)
[2019-04-04] MEDS: SODIUM CHLORIDE FLUSH SYRINGE 10 ML IV SCH (10:43)
--- NOTE | 2019-04-04 12:22 | Discharge Summary ---
Providers - Providers Date of Admission: 04/02/19 15:10 Date of discharge: 04/04/19 Attending physician: JOCELIN HODGES 04/02/19 13:57 Consult to Physician [CONS] Urgent Comment: Consulting Provider: CLARK KAN Physician Instructions: Reason For Exam: ESRD SOB 04/02/19 20:49 Consult to Dietitian/Nutrition [CONS] Routine Physician Instructions: Reason For Exam: dialysis. Reason for Consult: Poor oral intake [facility] Condition: Stable Pertinent studies: Chest x-ray Abdomen pelvis CT Pulmonary VQ scan Hospital course: Brief history: 38-year-old -[place] male with history of insulin-dependent diabetes, end-stage renal disease and hypertension and GERD comes in for increasing shortness of breath for the last 3 days with productive Cough. Initial work up showed BP upto 228/118, b/l PNA and PE. Admitted for further evaluated and management. He was treated for pneumonia with Levaquin, BP meds were adjusted, nephrology consulted for HD, started on eliquis for PE. His symptoms improved clinically and was then discharged home in stable condition. Discharge diagnosis: / Hypertensive emergency The patient was given IV labetalol and IV hydralazine in the emergency room and also got IV hydralazine every 2 hours when necessary BP improved with Valsartan 160 mg every 12h, Clonidine 0.3 every 8hrs and labetalol 100mg TID Further management will continue as outpatient / Pulmonary embolism, Moderate probability on VQ scan Patient started on eliquis po for anticoagulation / Bilateral pneumonia Patient is started on IV Levaquin and given Dual nebs as necessary / End-stage renal disease needing dialysis Received hemodialysis as per schedule /Insulin dependent diabetes mellitus Continue home insulin regimen and coverage hemoglobin A1c 7.7 adjust dosage of Lantus as necessary outpatient / Elevated lactic acid level Secondary to bilateral pneumonia / Elevated troponin Secondary to end-stage renal disease chronically elevated, denies chest pain / DVT prophylaxis on eliquis Discharge: Home with outpatient follow-up Hospitalist physical: GENERAL: well-developed and well-nourished male lying on bed appeared to be in no discomfort. HEENT: Normocephalic. Atraumatic. No conjunctival congestion or icterus. Patient has moist mucous membranes. NECK: Supple. Trachea midline. CHEST/LUNGS: BS auscultated bilaterally, breathing nonlabored. No wheezes HEART/CARDIOVASCULAR: Regular in rate and rhythm. S1 and S2 positive. ABDOMEN: Abdomen is soft, nontender. Patient has normal bowel sounds. SKIN: There is no rash. Warm and dry. NEURO: No focal motor deficit. Follows command. MUSCULOSKELETAL: No joint effusion or tenderness. EXTRIMITY: No edema, no cyanosis or clubbing. PSYCH: Cooperative. Disposition: DC-01 TO HOME OR SELFCARE Time spent for discharge: 34 minutes Core Measure Documentation - Palliative Care Palliative Care/ Comfort Measures: Not Applicable - Core Measures Any of the following diagnoses?: none Exam - Constitutional Vitals: Temp Pulse Resp BP Pulse Ox 98.7 F 95 H 16 151/95 94 04/04/19 08:14 04/04/19 10:56 04/04/19 08:14 04/04/19 10:56 04/04/19 08:14 Plan Activity: advance as tolerated Weight Bearing Status: Weight Bear as Tolerated Diet: diabetic, renal Follow up with: AMY GUAMANBELEN MD [place] [Primary Care Provider] - 7 Days CARLOS MENDOZA MD [Staff Physician] - 7 Days Prescriptions: cloNIDine [Catapres] 0.3 mg PO Q8H #30 tablet Valsartan [Diovan] 160 mg PO BID #60 tablet Apixaban [Eliquis] 10 mg PO Q12HR #14 tablet Apixaban [Eliquis starter pack] 5 mg PO BID #60 tab.ds.pk Labetalol [Labetalol 100mg TAB] 100 mg PO Q8HR #90 tablet HYDROcodone/APAP 7.5-325 [[place] 7.5-325 mg TAB] 1 each PO Q6HR PRN #4 tablet PRN Reason: Pain amLODIPine [Norvasc] 10 mg PO DAILY #30 tablet Pantoprazole [Protonix TAB] 40 mg PO QDAY #30 tablet
[2019-04-04] MEDS: HumaLOG SUB-Q SCH ×3 (12:38→19:36)
[2019-04-04] MEDS ORDERED: ELIQUIS PO SCH (13:18)
[2019-04-04 20:50] VITALS: BP 93/58
== END 2019-04-04 20:10 | disposition home or self-care (01) | DRG 175 ==
LOC: ED 12:59 → 3A 15:10 → OBSVTOIN 15:10 → 3A 17:37 → 4A 20:00
PROVIDERS: ADMIT Internal Medicine; ATTEND Internal Medicine
PROC: 5A1D70Z Performance of Urinary Filtration, Intermittent, Less than 6 Hours Per Day (ICD-10-PCS; 2019-04-03)
PROC: 5A1D70Z Performance of Urinary Filtration, Intermittent, Less than 6 Hours Per Day (ICD-10-PCS; principal; 2019-04-04)
DX: I26.99 Other pulmonary embolism without acute cor pulmonale (principal); N18.6 End stage renal disease; J18.9 Pneumonia, unspecified organism; J18.1 Lobar pneumonia, unspecified organism; I12.0 Hypertensive chronic kidney disease with stage 5 chronic kidney disease or end stage renal disease; I16.1 Hypertensive emergency; N25.81 Secondary hyperparathyroidism of renal origin; K31.84 Gastroparesis; E11.43 Type 2 diabetes mellitus with diabetic autonomic (poly)neuropathy; D63.1 Anemia in chronic kidney disease; E11.22 Type 2 diabetes mellitus with diabetic chronic kidney disease; K21.9 Gastro-esophageal reflux disease without esophagitis; G43.909 Migraine, unspecified, not intractable, without status migrainosus; F17.210 Nicotine dependence, cigarettes, uncomplicated; Z82.49 Family history of ischemic heart disease and other diseases of the circulatory system; Z79.4 Long term (current) use of insulin; Z86.73 Personal history of transient ischemic attack (TIA), and cerebral infarction without residual deficits; Z89.421 Acquired absence of other right toe(s); Z95.828 Presence of other vascular implants and grafts; Z86.711 Personal history of pulmonary embolism; Z88.1 Allergy status to other antibiotic agents; Z91.041 Radiographic dye allergy status; Z91.013 Allergy to seafood
CPT/HCPCS: 36415; 71045; 74176; 78580; 80053; 80061; 82140; 82550; 82962; 83036; 83690; 83735; 83880; 84484; 85027; 85379; 85610; 87040; 93005; 93010; 96365; 96375; G0378; A9540; J0360; J1200; J1644; J1815; J1940; J1956; J2270; J2405

== ENCOUNTER 2019-06-05 06:30 | Day surgery (SDC) | payer OTHER, MEDICARE ==
[2019-06-05] MEDS ORDERED: APRESOLINE IV ONE (08:32)
[2019-06-05] MEDS ORDERED: BENADRYL IV ONE (08:32)
[2019-06-05] MEDS ORDERED: HEPARIN 10,000 UNITS/10 ML ONE (08:45)
[2019-06-05] MEDS ORDERED: NACL 0.9% 250ML 0 ML ONE (08:46)
[2019-06-05] MEDS ORDERED: SOLU-Medrol IV NR (09:00)
[2019-06-05] MEDS ORDERED: PEPCID IV NR (09:00)
[2019-06-05] MEDS: NACL 0.9% 500 ML 500 ML IV SCH ×2 (09:40→09:47)
[2019-06-05] MEDS: HEPARIN/NS 5000 UNIT/500ML(CATH LAB) 1,000 ML IR ONE ×2 (09:40→09:47)
[2019-06-05] MEDS: LEVAQUIN 500MG/100ML 500 MG/100 ML BAG IV ONE ×2 (09:40→09:48)
[2019-06-05] MEDS: VERSED ONE ×2 (09:46→10:15)
[2019-06-05] MEDS: XYLOCAINE 2% INFILTRATI ONE ×3 (09:47→10:29)
[2019-06-05] MEDS: SUBLIMAZE ONE ×2 (09:47→10:15)
[2019-06-05] MEDS ORDERED: APRESOLINE ONE (09:59)
[2019-06-05] MEDS ORDERED: HEPARIN/NS 5000 UNIT/500ML(CATH LAB) 500 ML IR ONE (10:48)
--- NOTE | 2019-06-05 11:15 | Short Stay Summary ---
Short Stay Documentation Date of service: 06/05/19 Narrative H&P: The patient is a 38-year-old male with a history of end-stage renal disease on dialysis through a right arm axillary axillary loop graft. He has a history of multiple interventions for thrombosis of AV graft. His most recent intervention was in March 2019 for thrombosis. He presents with a thrombosed AV graft and is in need of intervention. He has no other complaints at this time. - History Past Medical History: diabetes, dialysis, ESRD, hypertension Past Surgical History: Other (multiple arteriovenous access creations) Social history: no significant social history - Allergies and Medications Current Medications: Allergies cefazolin [From [facility]] Allergy (Verified 07/21/18 13:02) Vomiting shellfish derived Allergy (Verified 06/08/18 15:09) Anaphylaxis iodine Adverse Reaction (Severe, Verified 06/08/18 15:09) Vomiting IV dye Adverse Reaction (Severe, Uncoded 04/28/18 08:49) Vomiting Home Medications Medication Instructions Recorded Confirmed Last Taken Type Insulin Glargine [Lantus VIAL] 20 units SUB-Q QHS units 04/04/19 06/05/19 06/04/19 Rx 10 units amLODIPine [Norvasc] 10 mg PO DAILY #30 tablet 04/04/19 06/05/19 06/04/19 Rx 10mg Calcium Acetate [Phoslo] 667 mg PO TID 06/05/19 06/05/19 06/04/19 History 667mg Clonidine HCl [Catapres] 0.3 mg PO TID 06/05/19 06/05/19 06/05/19 05:00 History Insulin Regular, Human [Novolin R] 3 - 5 unit SQ TID 06/05/19 06/05/19 06/04/19 18:00 History 3 units Active Medications Famotidine (Pepcid) 20 mg IV PREOP NR Stop: 06/05/19 23:59 Last Admin: 06/05/19 09:05 Dose: 20 mg Documented by: Sodium Chloride (Nacl 0.9% 500 Ml) 500 mls @ 50 mls/hr IV DIRECT SANDRINE Last Admin: 06/05/19 09:40 Dose: 40 mls Documented by: Methylprednisolone Sodium Succinate (Solu-Medrol) 125 mg IV PREOP NR Stop: 06/05/19 23:59 Last Admin: 06/05/19 09:03 Dose: 125 mg Documented by: - Physical exam General appearance: no acute distress Lungs: Normal air movement Heart: Regular rate Male Genitourinary: deferred Extremities: abnormal (right arm arterial venous graft without pulse or thrill) - Brief post op/procedure progress note Date of procedure: 06/05/19 Pre-op diagnosis: Complications of Dialysis Access Post-op diagnosis: same Procedure: 1. Ultrasound-Guided Access Right Arm AV Graft with 7 [place] Sheath Venous 2. Ultrasound-Guided Access Right Arm AV Graft with 6 [place] Sheath Arterial 3. Fistulogram with Central Venogram 4. Angioplasty of Right Arm AV Graft with 8 x 60 [place] Balloon 5. Percutaneous Mechanical Thrombectomy of Right Arm AV Graft with Trertolla Device, AngioJet Device, and Sogh-Pmp-Tmla Graham 6. Radiologic Supervision with Interpretation Anesthesia: MAC, local Surgeon: MARIFER BRANDON Estimated blood loss: minimal Pathology: none Condition: stable - Disposition Condition at discharge: Good Disposition: DC-01 TO HOME OR SELFCARE Short Stay Discharge Plan Activity: no restrictions Wound: other (Do not remove slipknots for 2 days. Remove by pulling the longer of the 2 strings)
--- NOTE | 2019-06-05 11:21 | Operative Report ---
Operative Report Operative Report: Date of Procedure: 06/05/2019 Pre-operative Diagnosis: Complications of Dialysis Access Post-operative Diagnosis: Same Procedure(s): 1. Ultrasound-Guided Access Right Arm AV Graft with 7 Tamazight Sheath Venous 2. Ultrasound-Guided Access Right Arm AV Graft with 6 Tamazight Sheath Arterial 3. Fistulogram with Central Venogram 4. Angioplasty of Right Arm AV Graft with 8 x 60 [place] Balloon 5. Percutaneous Mechanical Thrombectomy of Right Arm AV Graft with Trertolla Device, AngioJet Device, and Tjmi-Cra-Espc Graham 6. Radiologic Supervision with Interpretation Surgeon: Mika Escalante M.D. Process Engineering Manager: None Anesthesia: Local and Monitored Moderate Sedation Total Sedation Time: 58 Minutes EBL: Minimal Counts: Correct Complications: None Condition: Stable Findings: Thrombosis of right arm AV graft with 50-75% stenosis within the graft. There was 95% stenosis within stents and the axillary vein. There was 50% stenosis of the arterial anastomosis. After intervention the graft was widely patent with minimal residual thrombus and less than 10% residual stenosis. Specimen: None Indication: The patient is a 38-year-old male with a history of end-stage renal disease who is on hemodialysis through a right arm axillary artery to axillary vein loop graft. He presents with complaints of a thrombosed arteriovenous graft and is in need of intervention. He was given the risk, benefits, and alternative procedures and consented to the procedure. Description of Procedure: The patient was brought to the Senior Accountant Analyst and laid in supine position. After a timeout was performed his right arm was prepped and draped in normal sterile fashion. Ultrasound was used to identify the graft and the overlying skin and soft tissue was anesthetized with lidocaine. Micropuncture technique was used ultrasound guidance to access the graft was to venous outflow and a 7 Tamazight sheath was placed by Seldinger technique. A 0.035 Glidewire and vertebral catheter were advanced through the graft and through the stents and axillary vein and into the central venous system and a central venogram was performed that demonstrated the central venous system was paid without any flow-limiting stenosis. The catheter was pulled back into the graft as demonstrated a thrombosed graft with the stents and axillary vein demonstrated 95% stenosis. There was 50-75% stenosis within the venous outflow of the graft. The wire was reinserted and an 8 x 60 [place] balloon was used to perform angioplasty of the areas of stenosis. I then aspirated the thrombus and use a Trertolla Device to perform percutaneous thrombectomy of any remaining thrombus. After aspirating the remaining thrombus the follow-up fistulogram revealed minimal residual thrombus and less than 10% residual stenosis. I then used ultrasound and micropuncture technique, after anesthetizing the skin, to access the graft was arterial flow. I advanced the Glidewire and vertebral catheter into the axillary artery and performed an arteriogram revealing a small stump of flow into the graft with 50% stenosis of the arterial inflow. I performed angioplasty with the 8 x 60 balloon and then used the Trertolla Device to macerate thrombus. I aspirated the thrombus and then performed another arteriogram revealing a significant amount of residual thrombus within the arterial inflow so I used the AngioJet device to attempt to aspirate the thrombus however there was significant amount of residual thrombus within the arterial inflow. I advanced a wire into the axillary artery and then used the over the wire Graham to pull the thrombus back towards the sheath while aspirating. After performing this technique several times I readvanced the vertebral catheter into the axillary artery and performed a final fistulogram revealing brisk flow of contrast throughout the graft with minimal residual thrombus and less than 10% residual stenosis. I removed the catheter and used 2-0 Ethilon in a slipknot fashion to close each entry site after removing the sheaths. Sterile dressings were then applied to the entry sites and the patient was transported to the recovery area in stable condition.
[2019-06-05 12:20] VITALS: BP 162/96
== END 2019-06-05 12:50 | disposition home or self-care (01) ==
LOC: CATHLABREC 06:30
PROVIDERS: ATTEND Surgery Vascular Surgery
DX: T82.868A Thrombosis due to vascular prosthetic devices, implants and grafts, initial encounter (principal); T82.590A Other mechanical complication of surgically created arteriovenous fistula, initial encounter; I13.2 Hypertensive heart and chronic kidney disease with heart failure and with stage 5 chronic kidney disease, or end stage renal disease; E11.22 Type 2 diabetes mellitus with diabetic chronic kidney disease; N18.6 End stage renal disease; I25.2 Old myocardial infarction; K21.9 Gastro-esophageal reflux disease without esophagitis; E11.43 Type 2 diabetes mellitus with diabetic autonomic (poly)neuropathy; E11.69 Type 2 diabetes mellitus with other specified complication; D64.9 Anemia, unspecified; E11.65 Type 2 diabetes mellitus with hyperglycemia; I25.10 Atherosclerotic heart disease of native coronary artery without angina pectoris; Z86.711 Personal history of pulmonary embolism; Z91.013 Allergy to seafood; Z91.041 Radiographic dye allergy status; Z79.899 Other long term (current) drug therapy; Z79.4 Long term (current) use of insulin; Z88.8 Allergy status to other drugs, medicaments and biological substances; Y92.89 Other specified places as the place of occurrence of the external cause; Y83.9 Surgical procedure, unspecified as the cause of abnormal reaction of the patient, or of later complication, without mention of misadventure at the time of the procedure
CPT/HCPCS: 36415; 36905; 76937; 80048; 82962; 84132; 96374; 96375; 99156; 99157; C1725; C1757; C1894; J0360; J1200; J1644; J1956; J2250; J2930; J3010; J7040; J7050; Q9967

== ENCOUNTER 2019-06-08 09:59 | Inpatient (IN) | payer OTHER, MEDICARE ==
[2019-06-08] MEDS ORDERED: MORPHINE IV ONE (10:40)
[2019-06-08] MEDS ORDERED: ZOFRAN IV ONE (10:40)
[2019-06-08] MEDS ORDERED: PEPCID IV ONE ×2 (10:40→12:06)
--- NOTE | 2019-06-08 10:42 | Emergency Department Report ---
ED General Adult HPI - General Chief complaint: Chest Pain Stated complaint: SOB Time Seen by Provider: 06/08/19 10:13 Source: patient, RN notes reviewed Mode of arrival: Stretcher Limitations: Physical Limitation - History of Present Illness Initial comments: This is a 38-year-old gentleman. I evaluated this patient in the past. Nephrology: Dr. Méndez Past medical history: End-stage renal disease, on dialysis, Tuesday, Tuesday, Tuesday, right upper extremity fistula, his story of hypertension. Patient has had an exercise cardiac stress test at this hospital in January 2019, which was interpreted as negative for ischemic changes. He reportedly also has a history of gastroparesis and diabetes. The patient presents to the ER today with complaints of diffuse abdominal pain, nausea, vomiting, chest wall pain, occasionally vomiting blood, malaise, fatigue, and chills. Symptoms started on Tuesday. They are constant. They do not radiate anywhere. They worsen with attempting to eat and drink. The patient may have had a fever, he is not sure. He is not sure if this is similar to prior episodes of gastroparesis. He reports that he produces scant urine. He did not receive dialysis today. He reports receiving dialysis on Tuesday. No recent aspirin consumption, the patient denies posterior leg pain, posterior leg swelling, he denies recent travel, and he denies recent overnight hospitalizations. He did have an outpatient procedure for right upper extremity graft recently. , he denies crack cocaine use, and he indicates the chest pain does not radiate to the back, arms or neck. He indicates that he is not defecating blood. -: Gradual, days(s) Location: chest, abdomen Severity scale (0 -10): 6 Quality: stabbing Consistency: other Improves with: other Worsens with: other - Related Data Home Medications Medication Instructions Recorded Confirmed Last Taken Calcium Acetate [Phoslo] 667 mg PO TID 06/05/19 06/05/19 06/04/19 667mg Clonidine HCl [Catapres] 0.3 mg PO TID 06/05/19 06/05/19 06/05/19 05:00 Insulin Regular, Human [Novolin R] 3 - 5 unit SQ TID 06/05/19 06/05/19 06/04/19 18:00 3 units amLODIPine [Norvasc] 10 mg PO DAILY 06/08/19 06/08/19 Unknown Previous Rx's Medication Instructions Recorded Last Taken Type Insulin Glargine [Lantus VIAL] 20 units SUB-Q QHS units 04/04/19 06/04/19 Rx 10 units Allergies Allergy/AdvReac Type Severity Reaction Status Date / Time cefazolin [From [facility]] Allergy Vomiting Verified 07/21/18 13:02 shellfish derived Allergy Anaphylaxis Verified 06/08/18 15:09 iodine AdvReac Severe Vomiting Verified 06/08/18 15:09 IV dye AdvReac Severe Vomiting Uncoded 04/28/18 08:49 ED Review of Systems ROS: Stated complaint: SOB Other details as noted in HPI Constitutional: chills, malaise, weakness. denies: fever Eyes: denies: eye discharge ENT: denies: epistaxis Respiratory: denies: cough Cardiovascular: chest pain Gastrointestinal: abdominal pain, nausea, vomiting. denies: hematochezia Genitourinary: denies: dysuria Musculoskeletal: arthralgia, myalgia Skin: denies: lesions Neurological: weakness Psychiatric: anxiety Hematological/Lymphatic: denies: easy bleeding ED Past Medical Hx - Past Medical History Previous Medical History?: Yes Hx Hypertension: Yes Hx CVA: Yes (TIA's) Hx Heart Attack/AMI: Yes Hx Congestive Heart Failure: No Hx Diabetes: Yes Hx Pulmonary Embolism: Yes Hx Renal Disease: Yes Hx Headaches / Migraines: Yes (Migraines) Hx Psychiatric Treatment: No Hx Asthma: No Hx COPD: No Additional medical history: gastroparesis, PE - Surgical History Past Surgical History?: Yes Additional Surgical History: left eye surgery, right toe amputation, right chest vas cath. GRAFT RIGHT UPPER ARM. Graft revision 06/2018 per pt - Social History Smoking Status: Never Smoker Substance Use Type: None - Medications Home Medications: Home Medications Medication Instructions Recorded Confirmed Last Taken Type Insulin Glargine [Lantus VIAL] 20 units SUB-Q QHS units 04/04/19 06/05/19 06/04/19 Rx 10 units Calcium Acetate [Phoslo] 667 mg PO TID 06/05/19 06/05/19 06/04/19 History 667mg Clonidine HCl [Catapres] 0.3 mg PO TID 06/05/19 06/05/19 06/05/19 05:00 History Insulin Regular, Human [Novolin R] 3 - 5 unit SQ TID 06/05/19 06/05/19 06/04/19 18:00 History 3 units amLODIPine [Norvasc] 10 mg PO DAILY 06/08/19 06/08/19 Unknown History ED Physical Exam - General Limitations: No Limitations General appearance: alert, anxious, in distress - Head Head exam: Present: atraumatic, normocephalic - Eye Eye exam: Present: normal appearance, EOMI. Absent: nystagmus - ENT ENT exam: Present: normal exam, normal orophraynx, mucous membranes moist, normal external ear exam - Neck Neck exam: Present: normal inspection, full ROM. Absent: tenderness, meningismus - Respiratory Respiratory exam: Present: normal lung sounds bilaterally. Absent: respiratory distress, wheezes, rales, rhonchi, stridor - Cardiovascular Cardiovascular Exam: Present: normal rhythm, tachycardia, normal heart sounds. Absent: systolic murmur, diastolic murmur, rubs, gallop - GI/Abdominal GI/Abdominal exam: Present: soft. Absent: distended, tenderness, guarding, rebound, rigid, pulsatile mass - Rectal Rectal exam: Present: deferred - Extremities Exam Extremities exam: Present: normal inspection ( There is a right upper extremity fistula, with no redness, pus or streaking.), full ROM, other (2+ pulses noted in the bilateral upper, lower extremities. Compartments soft. No long bony tenderness. The pelvis is stable.). Absent: pedal edema, joint swelling, calf tenderness - Back Exam Back exam: Present: normal inspection, full ROM. Absent: tenderness, CVA tenderness (R), CVA tenderness (L), paraspinal tenderness, vertebral tenderness - Neurological Exam Neurological exam: Present: alert, oriented X3, other (Extraocular movements int act. Tongue midline. No facial droop. Facial sensation intact to light touch in the V1, V2, V3 distribution bilaterally. 5 and 5 strength in 4 extremities.. Sensation is intact to light touch in 4 extremities.). Absent: motor sensory deficit - Psychiatric Psychiatric exam: Present: anxious - Skin Skin exam: Present: warm, dry, intact, normal color. Absent: rash ED Course Vital Signs 06/08/19 06/08/19 06/08/19 10:23 10:30 12:21 Temperature 98.8 F Pulse Rate 103 H 115 H Respiratory 19 19 20 Rate Blood Pressure 224/124 Blood Pressure 117/87 [Left] O2 Sat by Pulse 97 100 98 Oximetry 06/08/19 06/08/19 12:36 12:51 Temperature Pulse Rate 115 H 126 H Respiratory 22 Rate Blood Pressure 177/87 Blood Pressure 123/80 [Left] O2 Sat by Pulse 97 Oximetry - Reevaluation(s) Reevaluation #1: 06/08/19 12:04 Differential diagnosis, including but not limited to: Gastroparesis, cyclic vomiting syndrome, cannabinoid hyperemesis syndrome, pneumonia, urinary tract i nfection, azotemia, uremia, costochondritis, GERD, gastritis, Precious-Ochoa tear, acute coronary syndrome Assessment and plan: 38-year-old gentleman who is hypertensive, appears to be diaphoretic, also appears to be somewhat uncomfortable, known history of diabetes, known history of gastroparesis, likely coming in with gastroparesis flare/exacerbation. Recently had a cardiac risk stratification at this hospital in January 2019. Laboratory studies demonstrate metabolic acidosis, leukocytosis, lactic acidosis, without significant hyperkalemia. Leukocytosis is likely a stress reaction, likely secondary to dehydration and presumed gastroparesis. Lactic acidosis likely due to dehydration, and reported nausea and vomiting. CBC reviewed and appreciated, appears to be acceptable, patient most likely having Precious-Ochoa tear. We will place a consults to his lining inserter mobile application development lead. A noncontrast CT scan of the abdomen and pelvis is ordered. We will admit for symptom control, blood pressure control. Given that he is having nausea, vomiting, chest pain, and abdominal pain, given that he is not hypoxic, I think a pulmonary embolism is unlikely as an explanatory etiology for all of his aforementioned symptoms. 06/08/19 12:07 06/08/19 12:08 Reevaluation #2: 06/08/19 12:08 We appreciate that the patient meets systemic inflammatory response syndrome criteria, however, his vital signs derangement and laboratory derangements are likely secondary to dehydration, likely secondary to gastroparesis flare/exacerbation. We will provide 250 mL of normal saline, and discussed fluid requirements with his lining inserter mobile application development lead. Reevaluation #3: 06/08/19 12:19 Discussed with nephrology, Dr. Gomez, who agrees to following consultation. We discussed fluid resuscitation on this patient, and he also agrees with individual aliquots of 250 mL at a time, instead of a full 30 mL/kg bolus. Hospital physician is paged to arrange admission. Reevaluation #4: 06/08/19 13:14 CT scan of the abdomen and pelvis is negative for acute disease. Elevated troponin is chronic, likely secondary to chronic renal insufficiency, likely represents type II myocardial infarction. Blood pressures improved. Patient sleeping comfortable in stretcher and appears to be improved. The Hospital physician, Dr. Karime Sabillon will admit ED Medical Decision Making - Lab Data Result diagrams: 06/08/19 11:19 06/08/19 11:19 Vital Signs 06/08/19 06/08/19 10:23 10:30 Temperature 98.8 F Pulse Rate 103 H Respiratory 19 19 Rate Blood Pressure 224/124 O2 Sat by Pulse 97 100 Oximetry Lab Results 06/08/19 06/08/19 06/08/19 Range/Units 11:19 11:19 11:19 WBC 14.8 H (4.5-11.0) K/mm3 RBC 3.80 (3.65-5.03) M/mm3 Hgb 11.3 L (11.8-15.2) gm/dl Hct 35.2 L (35.5-45.6) % MCV 93 (84-94) fl MCH 30 (28-32) pg MCHC 32 (32-34) % RDW 16.5 H (13.2-15.2) % Plt Count 130 L (140-440) K/mm3 Lymph % (Auto) 6.0 L (13.4-35.0) % Citrus % (Auto) 4.6 (0.0-7.3) % Eos % (Auto) 0.0 (0.0-4.3) % Baso % (Auto) 0.5 (0.0-1.8) % Lymph # 0.9 L (1.2-5.4) K/mm3 Citrus # 0.7 (0.0-0.8) K/mm3 Eos # 0.0 (0.0-0.4) K/mm3 Baso # 0.1 (0.0-0.1) K/mm3 Seg Neutrophils % 88.9 H (40.0-70.0) % Seg Neutrophils # 13.2 H (1.8-7.7) K/mm3 PT 14.3 (12.2-14.9) Sec. INR 1.14 H (0.87-1.13) APTT 23.0 L (24.2-36.6) Sec. Sodium 137 (137-145) mmol/L Potassium 4.0 (3.6-5.0) mmol/L Chloride 90.9 L (98-107) mmol/L Carbon Dioxide 15 L (22-30) mmol/L Anion Gap 35 mmol/L BUN 45 H (9-20) mg/dL Creatinine 10.7 H (0.8-1.5) mg/dL Estimated GFR 7 ml/min BUN/Creatinine Ratio 4 % Glucose 230 H (75-100) mg/dL Lactic Acid (0.7-2.0) mmol/L Magnesium (1.7-2.3) mg/dL Total Bilirubin 0.50 (0.1-1.2) mg/dL AST 22 (5-40) units/L ALT 17 (7-56) units/L Alkaline Phosphatase 89 (35-129) units/L Total Protein 7.6 (6.3-8.2) g/dL Albumin 4.6 (3.9-5) g/dL Albumin/Globulin Ratio 1.5 % 06/08/19 06/08/19 Range/Units 11:19 11:19 WBC (4.5-11.0) K/mm3 RBC (3.65-5.03) M/mm3 Hgb (11.8-15.2) gm/dl Hct (35.5-45.6) % MCV (84-94) fl MCH (28-32) pg MCHC (32-34) % RDW (13.2-15.2) % Plt Count (140-440) K/mm3 Lymph % (Auto) (13.4-35.0) % Citrus % (Auto) (0.0-7.3) % Eos % (Auto) (0.0-4.3) % Baso % (Auto) (0.0-1.8) % Lymph # (1.2-5.4) K/mm3 Citrus # (0.0-0.8) K/mm3 Eos # (0.0-0.4) K/mm3 Baso # (0.0-0.1) K/mm3 Seg Neutrophils % (40.0-70.0) % Seg Neutrophils # (1.8-7.7) K/mm3 PT (12.2-14.9) Sec. INR (0.87-1.13) APTT (24.2-36.6) Sec. Sodium (137-145) mmol/L Potassium (3.6-5.0) mmol/L Chloride (98-107) mmol/L Carbon Dioxide (22-30) mmol/L Anion Gap mmol/L BUN (9-20) mg/dL Creatinine (0.8-1.5) mg/dL Estimated GFR ml/min BUN/Creatinine Ratio % Glucose (75-100) mg/dL Lactic Acid 4.70 H* (0.7-2.0) mmol/L Magnesium 2.00 (1.7-2.3) mg/dL Total Bilirubin (0.1-1.2) mg/dL AST (5-40) units/L ALT (7-56) units/L Alkaline Phosphatase (35-129) units/L Total Protein (6.3-8.2) g/dL Albumin (3.9-5) g/dL Albumin/Globulin Ratio % - EKG Data -: EKG Interpreted by Sd EKG shows normal: sinus rhythm Rate: tachycardia - EKG Data 06/08/19 12:10 This is a sinus tachycardia, 107 beats per minutes, QTC prolonged, atrial enlargement, left ventricular hypertrophy, the EKG is abnormal, the EKG is not consistent with ST elevation myocardial infarction the EKG today appears to be unchanged from prior EKG from 04/02/2019. - Radiology Data Radiology results: pending, report reviewed, image reviewed Print Report Referring Physician: SOPHIA CLINE Patient Name: VINEET ALONSO Date of : 1980 Sex: Male Report Date: 2019-06-08 Report Status: Finalized Findings [facility] [address] [place] [address] XRay Report Signed Patient: VINEET ALONSO MR#: [id number] : 1980 Acct:[id number] Age/Sex: 38 / M ADM Date: 06/08/19 Loc: ED Attending Dr: Ordering Physician: SOPHIA CLINE MD Date of Service: 06/08/19 Procedure(s): XR chest 1V ap Accession Number(s): [id number] cc: SOPHIA CLINE MD Fluoro Time In Minutes: CHEST 1 VIEW INDICATION: Chest pain, shortness of breath for 2 days. Fever COMPARISON: FINDINGS: Support devices: None. Heart: Within normal limits. Lungs/Pleura: No acute air space or interstitial disease. Additional findings: None. IMPRESSION: Unremarkable AP chest. Signer Name: David Thakur Jr, MD Signed: 06/08/2019 11:53 AM Workstation Name: [id number] Transcribed By: TTR Dictated By: DAVID THAKUR JR, MD Electronically Authenticated By: DAVID THAKUR JR, MD Signed Date/Time: 06/08/19 1153 Critical care attestation.: If time is entered above; I have spent that time in minutes in the direct care of this critically ill patient, excluding procedure time. ED Disposition Clinical Impression: Hypertensive urgency, ESRD (end stage renal disease) on dialysis, SIRS (systemic inflammatory response syndrome) Disposition: OP ADMIT IP TO THIS HOSP Is pt being admited?: Yes Does the pt Need Aspirin: Yes Condition: Stable Referrals: DANE GONZALEZ MD [Primary Care Provider] - 3-5 Days
[2019-06-08 11:33] LABS: Basophils # (Auto) 0.1 K/mm3 (0.0-0.1); Basophils % (Auto) 0.5 % (0.0-1.8); Hematocrit 35.2 % (35.5-45.6); Hemoglobin 11.3 gm/dl (11.8-15.2); Lymphocytes # (Auto) 0.9 K/mm3 (1.2-5.4); Mean Corpuscular HGB Conc 32 % (32-34); Mean Corpuscular Volume 93 fl (84-94); Monocytes # (Auto) 0.7 K/mm3 (0.0-0.8); Monocytes % (Auto) 4.6 % (0.0-7.3); Platelet Count 130 K/mm3 (140-440); Red Cell Distribution Width 16.5 % (13.2-15.2)
[2019-06-08 11:43] LABS: INR 1.14 (0.87-1.13)
[2019-06-08] MEDS ORDERED: APRESOLINE IV ONE (11:44)
--- NOTE | 2019-06-08 11:57 | XRay Report ---
CHEST 1 VIEW INDICATION: Chest pain, shortness of breath for 2 days. Fever COMPARISON: FINDINGS: Support devices: None. Heart: Within normal limits. Lungs/Pleura: No acute air space or interstitial disease. Additional findings: None. IMPRESSION: Unremarkable AP chest. Signer Name: David Thakur Jr, MD Signed: 06/08/2019 11:53 AM Workstation Name: [id number]
[2019-06-08 11:58] LABS: Albumin 4.6 g/dL (3.9-5); Calcium 8.3 mg/dL (8.4-10.2)
[2019-06-08] MEDS ORDERED: NACL 0.9% 250ML 250 ML IV ONE (12:06)
[2019-06-08 12:18] LABS: Chol/HDL Ratio 4.12 %
--- NOTE | 2019-06-08 12:56 | Cat Scan Report ---
CT ABDOMEN AND PELVIS WITHOUT CONTRAST HISTORY: Abdominal pain. Nausea and vomiting COMPARISON: 04/02/2019 TECHNIQUE: Helical CT images of the abdomen and pelvis were obtained without administration of intrav enous contrast. Sagittal and coronal reformatted images were reviewed. All CT scans at this location are performed using CT dose reduction for ALARA by means of automated exposure control. FINDINGS: Abdomen/pelvis: Normal liver, biliary system, pancreas, spleen, adrenal glands, kidneys, bowel loops , appendix and bladder. The aorta is normal caliber. No evidence for ascites, adenopathy, free air or free fluid. Penile pump in the left side of the pelvis is noted. Lungs/bones: Bilateral lower lung infiltrates have resolved since the previous exam. No pleural flui d. Heart size is borderline. IMPRESSION: No acute process is identified in the abdomen or pelvis. Signer Name: David Thakur Jr, MD Signed: 06/08/2019 12:51 PM Workstation Name: [id number]
[2019-06-08] MEDS: BABY ASPIRIN PO ONE ×2 (13:16→14:09)
[2019-06-08 13:39] LABS: Hepatitis B Surface Antigen Non-Reactive (Negative); Hepatitis C Virus Antibody Non-Reactive (NonReactive)
[2019-06-08] MEDS ORDERED: REGLAN IV ONE (14:09)
[2019-06-08] MEDS ORDERED: REGLAN ONE (14:18)
[2019-06-08] MEDS ORDERED: NACL 0.9% 100 ML IV PRN (15:13)
--- NOTE | 2019-06-08 15:15 | Consultation ---
History of Present Illness - Reason for Consult Consult date: 06/08/19 end stage renal disease - History of Present Illness Mr. Cervantes is a 38yo gentleman with ESRD on HD MWF, DM and hypertension who presented to the ED with intractable N/V, abdominal pain and chest pain. He reports that symptoms are consistent with prior episodes of gastroparesis. He last dialyzed on Tuesday but did not complete full treatment. Past History Past Medical History: anemia (secondary to ESRD), diabetes (w/ diabetic gastroparesis), ESRD, hypertension Past Surgical History: Other (AV access surgery) Social history: no significant social history Family history: no significant family history Medications and Allergies Allergies Allergy/AdvReac Type Severity Reaction Status Date / Time cefazolin [From [facility] Allergy Vomiting Verified 07/21/18 13:02 shellfish derived Allergy Anaphylaxis Verified 06/08/18 15:09 iodine AdvReac Severe Vomiting Verified 06/08/18 15:09 IV dye AdvReac Severe Vomiting Uncoded 04/28/18 08:49 Home Medications Medication Instructions Recorded Confirmed Last Taken Type Insulin Glargine [Lantus VIAL] 20 units SUB-Q QHS units 04/04/19 06/08/19 06/04/19 Rx 10 units Calcium Acetate [Phoslo] 1,334 mg PO TIDWM 06/05/19 06/08/19 06/04/19 History 667mg Clonidine HCl [Catapres] 0.3 mg PO BID 06/05/19 06/08/19 06/05/19 05:00 History Insulin Regular, Human [Novolin R] 3 - 5 unit SQ TID 06/05/19 06/08/19 06/04/19 18:00 History 3 units amLODIPine [Norvasc] 10 mg PO DAILY 06/08/19 06/08/19 Unknown History Active Meds: Active Medications Sodium Chloride (Nacl 0.9%) 100 mls @ 999 mls/hr IV MARI PRN PRN Reason: Hypotension Review of Systems All systems: negative Exam - Vital Signs Vital signs: Vital Signs Temp Pulse Resp BP Pulse Ox 98.8 F 103 H 19 224/124 97 06/08/19 10:23 06/08/19 10:23 06/08/19 10:23 06/08/19 10:23 06/08/19 10:23 - General Appearance General appearance: well-developed, well-nourished EENT: ATNC Respiratory: Clear to Ascultation Heart: regular, S1S2 Gastrointestinal: Present: normal. Absent: tenderness, distended Integumentary: no rash, warm and dry Musculoskeletal: Present: other (no edema) Psychiatric: cooperative Results - Lab Results 06/09/19 02:00 06/09/19 02:00 Most recent lab results Calcium 8.3 mg/dL (8.4-10.2) L D 06/08/19 11:19 Magnesium 2.00 mg/dL (1.7-2.3) 06/08/19 11:19 Assessment and Plan Impression: * End stage renal disease * Intractable N/V secondary to diabetic gastroparesis * Chest pain --Normal perfusion MPI - Jan 2019 * Lactic acidosis * Elevated troponin, chronic * Type I DM * Hypertension * Anemia secondary to ESRD * Secondary hyperparathyroidism Plan: * Hemodialysis today, minimal UF as patient w/ intractable N/V * Continue MWF schedule * Symptomatic management per primary team * Epogen TIW prn * Dose medications for renal function
[2019-06-08] MEDS ORDERED: NACL 0.9 (PRIMING MACHINE ONLY DIALYSIS) MC ONE (17:26)
[2019-06-08] MEDS ORDERED: APRESOLINE IV PRN (20:28)
[2019-06-08] MEDS ORDERED: PHENERGAN PR PRN (20:32)
[2019-06-08] MEDS ORDERED: SODIUM CHLORIDE FLUSH SYRINGE 10 ML IV PRN (20:32)
[2019-06-08] MEDS ORDERED: TYLENOL PO PRN (20:32)
[2019-06-08] MEDS ORDERED: PERCOCET 5/325 PO PRN (20:32)
[2019-06-08] MEDS ORDERED: NON-FORMULARY (Clonidine Hcl [Catapres] 0.3 MG) PO SCH (20:45)
[2019-06-08] MEDS ORDERED: COZAAR PO SCH (21:00)
[2019-06-08] MEDS ORDERED: NORVASC PO SCH (21:00)
[2019-06-08] MEDS: PEPCID IV SCH (21:03)
[2019-06-08] MEDS: DILAUDID IV PRN (21:04)
[2019-06-08] MEDS: ZOFRAN IV PRN (21:04)
[2019-06-08] MEDS ORDERED: CATAPRES PO SCH (22:00)
[2019-06-08] MEDS ORDERED: PEPCID IV SCH (22:00)
[2019-06-08] MEDS: SODIUM CHLORIDE FLUSH SYRINGE 10 ML IV SCH (22:23)
[2019-06-08] MEDS: LANTUS SUB-Q SCH (23:17)
[2019-06-08] MEDS: HumaLOG SUB-Q SCH (23:17)
[2019-06-09] MEDS: DILAUDID IV PRN ×7 (00:49→21:56)
[2019-06-09] MEDS ORDERED: NITRO-BID 2% TP ONE (01:37)
[2019-06-09] MEDS ORDERED: MORPHINE ONE (01:41)
[2019-06-09] MEDS ORDERED: MORPHINE IV PRN (01:44)
[2019-06-09] MEDS: CARDENE 50 MG in NACL 0.9% 250ML 230 ML IV SCH ×2 (01:45→11:58)
[2019-06-09] MEDS: NITRO-BID 2% TP SCH ×4 (01:45→14:00)
[2019-06-09 02:14] LABS: Hemoglobin 11.1 gm/dl (11.8-15.2); Mean Corpuscular HGB Conc 32 % (32-34); Mean Corpuscular Volume 95 fl (84-94); Platelet Count 137 K/mm3 (140-440); Red Blood Count 3.68 M/mm3 (3.65-5.03); Red Cell Distribution Width 16.6 % (13.2-15.2)
[2019-06-09] MEDS: ZOFRAN IV PRN ×4 (02:25→18:26)
[2019-06-09 02:33] LABS: Albumin 4.4 g/dL (3.9-5)
--- NOTE | 2019-06-09 03:38 | Event Note ---
Date: 06/09/19 CODE MET Patient is diaphoretic, complaining of chest pain Prior to code MET, [employer] Bree was notified of blood pressure systolic 228 IV hydralazine was given by [employer] Currently, he is hurting all over Start cardene drip, check labs, ekg Give IV morphine, NTP transfer to ICU, consult critical care Continue oral hypertensives D/w
[2019-06-09 05:10] LABS: Total Cells Counted 100
[2019-06-09 05:11] LABS: Anisocytosis Few; Basophils % (Manual) 0 % (0.0-1.8); Eosinophils % (Manual) 0 % (0.0-4.3)
[2019-06-09 05:12] LABS: Platelet Estimate Consistent w Auto; Poikilocytosis Few
[2019-06-09] MEDS: HumuLIN R SUB-Q SCH ×3 (07:30→16:30)
[2019-06-09] MEDS: HumaLOG SUB-Q SCH ×4 (07:30→21:50)
--- NOTE | 2019-06-09 07:35 | History and Physical Report ---
History of Present Illness Date of examination: 06/08/19 Date of admission: 06/08/19 13:15 Chief complaint: Vomiting 4 to 5 times 1 day History of present illness: The patient presents to the ER today with complaints of diffuse abdominal pain, nausea, vomiting, chest wall pain, occasionally vomiting blood, malaise, fatigue, and chills. Symptoms started on Tuesday. They are constant. They do not radiate anywhere. They worsen with attempting to eat and drink. The patient may have had a fever, he is not sure. He is not sure if this is similar to prior episodes of gastroparesis. He reports that he produces scant urine. He did not receive dialysis today. He reports receiving dialysis on Tuesday. No recent aspirin consumption, the patient denies posterior leg pain, posterior leg swelling, he denies recent travel, and he denies recent overnight hospit alizations. He did have an outpatient procedure for right upper extremity graft recently. - Past Medical History Previous Medical History?: Yes Hypertension: Yes CVA: Yes (TIA's) Heart Attack/AMI: Yes Diabetes: Yes Pulmonary Embolism: Yes Renal Disease: Yes Headaches / Migraines: Yes (Migraines) Additional medical history: gastroparesis, PE - Surgical History Past Surgical History?: Yes Additional Surgical History: left eye surgery, right toe amputation, right chest vas cath. GRAFT RIGHT UPPER ARM. Graft revision 06/2018 per pt - Social History Smoking Status: Never Smoker Substance Use Type: None - Medications Home Medications: Home Medications Medication Instructions Recorded Confirmed Last Taken Type Insulin Glargine [Lantus VIAL] 20 units SUB-Q QHS units 04/04/19 06/05/19 06/04/19 Rx 10 units Calcium Acetate [Phoslo] 667 mg PO TID 06/05/19 06/05/19 06/04/19 History 667mg Clonidine HCl [Catapres] 0.3 mg PO TID 06/05/19 06/05/19 06/05/19 05:00 History Insulin Regular, Human [Novolin R] 3 - 5 unit SQ TID 06/05/19 06/05/19 06/04/19 18:00 History 3 units amLODIPine [Norvasc] 10 mg PO DAILY 06/08/19 06/08/19 Unknown History Review of Systems ROS: Stated complaint: SOB Other details as noted in HPI Constitutional: chills, malaise, weakness. denies: fever Eyes: denies: eye discharge ENT: denies: epistaxis Respiratory: denies: cough Cardiovascular: chest pain Gastrointestinal: abdominal pain, nausea, vomiting. denies: hematochezia Genitourinary: denies: dysuria Musculoskeletal: arthralgia, myalgia Skin: denies: lesions Neurological: weakness Psychiatric: anxiety Hematological/Lymphatic: denies: easy bleeding Past History Past Medical History: anemia (secondary to ESRD), diabetes (w/ diabetic gastroparesis), ESRD, hypertension Past Surgical History: Other (AV access surgery) Social history: no significant social history Family history: no significant family history Medications and Allergies Allergies Allergy/AdvReac Type Severity Reaction Status Date / Time cefazolin [From [facility]] Allergy Vomiting Verified 07/21/18 13:02 shellfish derived Allergy Anaphylaxis Verified 06/08/18 15:09 iodine AdvReac Severe Vomiting Verified 06/08/18 15:09 IV dye AdvReac Severe Vomiting Uncoded 04/28/18 08:49 Home Medications Medication Instructions Recorded Confirmed Last Taken Type Insulin Glargine [Lantus VIAL] 20 units SUB-Q QHS units 04/04/19 06/08/19 06/04/19 Rx 10 units Calcium Acetate [Phoslo] 1,334 mg PO TIDWM 06/05/19 06/08/19 06/04/19 History 667mg Clonidine HCl [Catapres] 0.3 mg PO BID 06/05/19 06/08/19 06/05/19 05:00 History Insulin Regular, Human [Novolin R] 3 - 5 unit SQ TID 06/05/19 06/08/19 06/04/19 18:00 History 3 units amLODIPine [Norvasc] 10 mg PO DAILY 06/08/19 06/08/19 Unknown History Active Meds: Active Medications Acetaminophen (Tylenol) 650 mg PO Q4H PRN PRN Reason: Pain MILD(1-3)/Fever >100.5/SOARES Calcium Acetate (Phoslo) 1,334 mg PO TIDWM SAN[facility] Famotidine (Pepcid) 10 mg IV BID [facility] Last Admin: 06/08/19 21:03 Dose: 10 mg Documented by: Hydromorphone HCl (Dilaudid) 0.5 mg IV Q3H PRN PRN Reason: Pain , Severe (7-10) Last Admin: 06/09/19 05:46 Dose: 0.5 mg Documented by: Sodium Chloride (Nacl 0.9%) 100 mls @ 999 mls/hr IV MARI PRN PRN Reason: Hypotension Nicardipine HCl 50 mg/ Sodium (Chloride) 250 mls @ 25 mls/hr IV TITR SANDRINE; Protocol Last Titration: 06/09/19 06:06 Dose: 7.5 mg/hr, 37.5 mls/hr Documented by: Insulin Glargine (Lantus) 20 units SUB-Q QHS SANDRINE Last Admin: 06/08/19 23:17 Dose: Not Given Documented by: Insulin Human Lispro (Humalog) 0 unit SUB-Q ACHS [facility]; Protocol Last Admin: 06/08/19 23:17 Dose: Not Given Documented by: Insulin Human Regular (Humulin R) 5 units SUB-Q TIDAC [facility] Nitroglycerin (Nitro-Bid 2%) 0.5 inch TP BIDNTG [facility]; Protocol Ondansetron HCl (Zofran) 4 mg IV Q3H PRN PRN Reason: Nausea And Vomiting Last Admin: 06/09/19 05:01 Dose: 4 mg Documented by: Promethazine HCl (Phenergan) 25 mg WA Q6H PRN PRN Reason: N/V IF NPO AND NO IV ACCESS Last Admin: 06/08/19 23:10 Dose: 25 mg Documented by: Sodium Chloride (Sodium Chloride Flush Syringe 10 Ml) 10 ml IV BID SANDRINE Last Admin: 06/08/19 22:23 Dose: 10 ml Documented by: Sodium Chloride (Sodium Chloride Flush Syringe 10 Ml) 10 ml IV PRN PRN PRN Reason: LINE FLUSH Exam - Constitutional Vitals: Temp Pulse Resp BP Pulse Ox 97.8 F 124 H 17 211/94 96 06/09/19 02:58 06/09/19 06:01 06/09/19 06:01 06/09/19 06:01 06/09/19 06:01 General appearance: Present: no acute distress, well-nourished - EENT Eyes: Present: PERRL ENT: hearing intact, clear oral mucosa - Neck Neck: Present: supple, normal ROM - Respiratory Respiratory effort: normal Respiratory: bilateral: CTA - Cardiovascular Heart rate: 78 Rhythm: regular Heart Sounds: Present: S1 & S2. Absent: rub, click - Extremities Extremities: no ischemia, pulses intact, pulses symmetrical, No edema Peripheral Pulses: within normal limits - Abdominal General gastrointestinal: Present: soft, non-tender, non-distended, normal bowel sounds Male genitourinary: Present: normal - Rectal Rectal Exam: deferred - Integumentary Integumentary: Present: clear, warm, dry - Musculoskeletal Musculoskeletal: gait normal, strength equal bilaterally - Psychiatric Psychiatric: appropriate mood/affect, intact judgment & insight - Neurologic Neurologic: CNII-XII intact, moves all extremities - Allied Health Allied health notes reviewed: nursing, case management Results - Labs CBC & Chem 7: 06/09/19 02:00 06/09/19 02:00 Labs: Laboratory Last Values WBC 19.2 K/mm3 (4.5-11.0) H 06/09/19 02:00 RBC 3.68 M/mm3 (3.65-5.03) 06/09/19 02:00 Hgb 11.1 gm/dl (11.8-15.2) L 06/09/19 02:00 Hct 35.0 % (35.5-45.6) L 06/09/19 02:00 MCV 95 fl (84-94) H 06/09/19 02:00 MCH 30 pg (28-32) 06/09/19 02:00 MCHC 32 % (32-34) 06/09/19 02:00 RDW 16.6 % (13.2-15.2) H 06/09/19 02:00 Plt Count 137 K/mm3 (140-440) L 06/09/19 02:00 Lymph % (Auto) 6.0 % (13.4-35.0) L 06/08/19 11:19 [place] % (Auto) 4.6 % (0.0-7.3) 06/08/19 11:19 Eos % (Auto) 0.0 % (0.0-4.3) 06/08/19 11:19 Baso % (Auto) 0.5 % (0.0-1.8) 06/08/19 11:19 Lymph # 0.9 K/mm3 (1.2-5.4) L 06/08/19 11:19 [place] # 0.7 K/mm3 (0.0-0.8) 06/08/19 11:19 Eos # 0.0 K/mm3 (0.0-0.4) 06/08/19 11:19 Baso # 0.1 K/mm3 (0.0-0.1) 06/08/19 11:19 Add Manual Diff Complete 06/09/19 02:00 Total Counted 100 06/09/19 02:00 Seg Neutrophils % Dental Director 06/09/19 02:00 Seg Neuts % (Manual) 93.0 % (40.0-70.0) H 06/09/19 02:00 0 % 06/09/19 02:00 5.0 % (13.4-35.0) L 06/09/19 02:00 Reactive Lymphs % (Man) 0 % 06/09/19 02:00 2.0 % (0.0-7.3) 06/09/19 02:00 0 % (0.0-4.3) 06/09/19 02:00 0 % (0.0-1.8) 06/09/19 02:00 0 % 06/09/19 02:00 0 % 06/09/19 02:00 0 % 06/09/19 02:00 0 % 06/09/19 02:00 Nucleated RBC % Not Reportable 06/09/19 02:00 Seg Neutrophils # 13.2 K/mm3 (1.8-7.7) H 06/08/19 11:19 Seg Neutrophils # Man 17.9 K/mm3 (1.8-7.7) H 06/09/19 02:00 Band Neutrophils # 0.0 K/mm3 06/09/19 02:00 1.0 K/mm3 (1.2-5.4) L 06/09/19 02:00 Abs React Lymphs (Man) 0.0 K/mm3 06/09/19 02:00 0.4 K/mm3 (0.0-0.8) 06/09/19 02:00 0.0 K/mm3 (0.0-0.4) 06/09/19 02:00 0.0 K/mm3 (0.0-0.1) 06/09/19 02:00 0.0 K/mm3 06/09/19 02:00 0.0 K/mm3 06/09/19 02:00 0.0 K/mm3 06/09/19 02:00 Blast Cells # 0.0 K/mm3 06/09/19 02:00 WBC Morphology Not Reportable 06/09/19 02:00 Hypersegmented Neuts Not Reportable 06/09/19 02:00 Hyposegmented Neuts Not Reportable 06/09/19 02:00 Hypogranular Neuts Not Reportable 06/09/19 02:00 Not Reportable 06/09/19 02:00 Not Reportable 06/09/19 02:00 Not Reportable 06/09/19 02:00 Not Reportable 06/09/19 02:00 Not Reportable 06/09/19 02:00 Not Reportable 06/09/19 02:00 Consistent w auto 06/09/19 02:00 Not Reportable 06/09/19 02:00 Plt Clumps, EDTA Not Reportable 06/09/19 02:00 Not Reportable 06/09/19 02:00 Not Reportable 06/09/19 02:00 Not Reportable 06/09/19 02:00 Plt Morphology Comment Not Reportable 06/09/19 02:00 RBC Morphology Not Reportable 06/09/19 02:00 Dimorphic RBCs Not Reportable 06/09/19 02:00 Not Reportable 06/09/19 02:00 Not Reportable 06/09/19 02:00 Few 06/09/19 02:00 Few 06/09/19 02:00 Not Reportable 06/09/19 02:00 Not Reportable 06/09/19 02:00 Not Reportable 06/09/19 02:00 Not Reportable 06/09/19 02:00 Not Reportable 06/09/19 02:00 Not Reportable 06/09/19 02:00 Not Reportable 06/09/19 02:00 Not Reportable 06/09/19 02:00 Not Reportable 06/09/19 02:00 Not Reportable 06/09/19 02:00 Not Reportable 06/09/19 02:00 Not Reportable 06/09/19 02:00 Not Reportable 06/09/19 02:00 Not Reportable 06/09/19 02:00 Rare 06/09/19 02:00 Acanthocytes (Spur) Not Reportable 06/09/19 02:00 Rouleaux Not Reportable 06/09/19 02:00 Not Reportable 06/09/19 02:00 Not Reportable 06/09/19 02:00 Not Reportable 06/09/19 02:00 Not Reportable 06/09/19 02:00 Hem Pathologist Commnt No 06/09/19 02:00 PT 14.3 Sec. (12.2-14.9) 06/08/19 11:19 INR 1.14 (0.87-1.13) H 06/08/19 11:19 APTT 23.0 Sec. (24.2-36.6) L 06/08/19 11:19 Sodium 140 mmol/L (137-145) 06/09/19 02:00 Potassium 4.0 mmol/L (3.6-5.0) 06/09/19 02:00 Chloride 94.4 mmol/L (98-107) L 06/09/19 02:00 Carbon Dioxide 16 mmol/L (22-30) L 06/09/19 02:00 34 mmol/L 06/09/19 02:00 BUN 30 mg/dL (9-20) H 06/09/19 02:00 7.4 mg/dL (0.8-1.5) H 06/09/19 02:00 Estimated GFR 10 ml/min 06/09/19 02:00 4 % 06/09/19 02:00 Glucose 329 mg/dL (75-100) H 06/09/19 02:00 POC Glucose 301 (70-105) H 06/09/19 01:38 7.8 % (4-6) H 06/08/19 11:19 Lactic Acid 5.10 mmol/L (0.7-2.0) H* 06/08/19 15:45 Calcium 8.0 mg/dL (8.4-10.2) L 06/09/19 02:00 Magnesium 2.00 mg/dL (1.7-2.3) 06/08/19 11:19 0.50 mg/dL (0.1-1.2) 06/09/19 02:00 AST 17 units/L (5-40) 06/09/19 02:00 ALT 14 units/L (7-56) 06/09/19 02:00 84 units/L (35-129) 06/09/19 02:00 234 units/L (55-170) H 06/09/19 02:00 CK-MB (CK-2) 8.0 ng/mL (0.0-4.0) H 06/09/19 02:00 CK-MB (CK-2) Rel Index 3.4 (0-4) 06/09/19 02:00 0.350 ng/mL (0.00-0.029) H* 06/09/19 02:00 7.5 g/dL (6.3-8.2) 06/09/19 02:00 4.4 g/dL (3.9-5) 06/09/19 02:00 1.4 % 06/09/19 02:00 Triglycerides 254 mg/dL (2-149) H 06/08/19 11:19 Cholesterol 165 mg/dL (50-199) 06/08/19 11:19 100 mg/dL (50-130) 06/08/19 11:19 40 mg/dL (40-59) 06/08/19 11:19 4.12 % 06/08/19 11:19 Hepatitis A IgM Ab Non-reactive (NonReactive) 06/08/19 11:19 Hep Bs Antigen Non-reactive (Negative) 06/08/19 11:19 Hep B Core IgM Ab Non-reactive (NonReactive) 06/08/19 11:19 Non-reactive (NonReactive) 06/08/19 11:19 - Imaging and Cardiology EKG: report reviewed Chest x-ray: report reviewed (NAF) CT scan - abdomen: report reviewed (NAF) Assessment and Plan Assessment and plan: CCT 40 min Advance Directives: Yes (FC) VTE prophylaxis?: Chemical Plan of care discussed with patient/family: Yes - Patient Problems (1) Hypertensive urgency Current Visit: Yes Status: Acute Plan to address problem: Started on Clonidine and Losartan Clonidine was d/c'd by pharmacy for some inexplicable reason Continued to have high BP Was started on Cardene drip and transferred to ICU Titrate Cardene drip and Start on Oral antihypertensives (2) SIRS (systemic inflammatory response syndrome) Current Visit: Yes Status: Acute Plan to address problem: High WBC sec to demargination Empiric abx given (3) ESRD (end stage renal disease) on dialysis Current Visit: Yes Status: Chronic Plan to address problem: Cont Hemodialysis (4) IDDM (insulin dependent diabetes mellitus) Current Visit: Yes Status: Acute (5) Diabetes mellitus, insulin dependent (IDDM), uncontrolled Current Visit: Yes Status: Chronic Plan to address problem: Cont Insulin coverage Patient not able to tolerate food (6) Gastroparesis Current Visit: Yes Status: Acute Plan to address problem: Cont symptomatic treatment (7) DVT prophylaxis Current Visit: Yes Status: Acute Plan to address problem: On Heparin and GI pprophylaxis
[2019-06-09] MEDS: PHOSLO PO SCH ×3 (08:00→17:00)
--- NOTE | 2019-06-09 09:12 | Progress Note ---
Assessment and Plan Assessment and plan: Hypertensive urgency Started on cardene drip Monitor BP nausea and vomiting On Zofran May add Reglan gastroparesis Add Reglan ESRD on dialysis Nephrology folllowing Chest pain cardiology consulted Elevated Troponin may be chronic SIRS Monitor Diabetes mellitus type 2 Fingerstick q ac and hs Full code status History Interval history: nausea and vomiting Chest pain Hospitalist Physical - Physical exam Narrative exam: Gen: Not in acute distress, lying in bed, obese HEENT: Normocephalic, atraumatic Neck: supple, no JVD Heart: S1 and S2 reg, no murmurs, rubs or gallop Lungs: Clear to auscultation, no crackles Abd: soft, non tender, non distended, normal BS, Ext: No edema, no clubbing, no cyanosis Neuro: Awake,alert, Oriented X 3. No focal neuro signs - Constitutional Vitals: Temp Pulse Resp BP Pulse Ox 97.8 F 124 H 17 211/94 96 06/09/19 02:58 06/09/19 06:01 06/09/19 06:01 06/09/19 06:01 06/09/19 06:01 General appearance: Present: no acute distress, well-nourished Results - Labs CBC & Chem 7: 06/10/19 04:07 06/10/19 04:07 Labs: Laboratory Last Values WBC 19.2 K/mm3 (4.5-11.0) H 06/09/19 02:00 RBC 3.68 M/mm3 (3.65-5.03) 06/09/19 02:00 Hgb 11.1 gm/dl (11.8-15.2) L 06/09/19 02:00 Hct 35.0 % (35.5-45.6) L 06/09/19 02:00 MCV 95 fl (84-94) H 06/09/19 02:00 MCH 30 pg (28-32) 06/09/19 02:00 MCHC 32 % (32-34) 06/09/19 02:00 RDW 16.6 % (13.2-15.2) H 06/09/19 02:00 Plt Count 137 K/mm3 (140-440) L 06/09/19 02:00 Lymph % (Auto) 6.0 % (13.4-35.0) L 06/08/19 11:19 [place] % (Auto) 4.6 % (0.0-7.3) 06/08/19 11:19 Eos % (Auto) 0.0 % (0.0-4.3) 06/08/19 11:19 Baso % (Auto) 0.5 % (0.0-1.8) 06/08/19 11:19 Lymph # 0.9 K/mm3 (1.2-5.4) L 06/08/19 11:19 [place] # 0.7 K/mm3 (0.0-0.8) 06/08/19 11:19 Eos # 0.0 K/mm3 (0.0-0.4) 06/08/19 11: Baso # 0.1 K/mm3 (0.0-0.1) 06/08/19 11:19 Add Manual Diff Complete 06/09/19 02:00 Total Counted 100 06/09/19 02:00 Seg Neutrophils % Drum Stock Clerk 06/09/19 02:00 Seg Neuts % (Manual) 93.0 % (40.0-70.0) H 06/09/19 02:00 0 % 06/09/19 02:00 5.0 % (13.4-35.0) L 06/09/19 02:00 Reactive Lymphs % (Man) 0 % 06/09/19 02:00 2.0 % (0.0-7.3) 06/09/19 02:00 0 % (0.0-4.3) 06/09/19 02:00 0 % (0.0-1.8) 06/09/19 02:00 0 % 06/09/19 02:00 0 % 06/09/19 02:00 0 % 06/09/19 02:00 0 % 06/09/19 02:00 Nucleated RBC % Not Reportable 06/09/19 02:00 Seg Neutrophils # 13.2 K/mm3 (1.8-7.7) H 06/08/19 11:19 Seg Neutrophils # Man 17.9 K/mm3 (1.8-7.7) H 06/09/19 02:00 Band Neutrophils # 0.0 K/mm3 06/09/19 02:00 1.0 K/mm3 (1.2-5.4) L 06/09/19 02:00 Abs React Lymphs (Man) 0.0 K/mm3 06/09/19 02:00 0.4 K/mm3 (0.0-0.8) 06/09/19 02:00 0.0 K/mm3 (0.0-0.4) 06/09/19 02:00 0.0 K/mm3 (0.0-0.1) 06/09/19 02:00 0.0 K/mm3 06/09/19 02:00 0.0 K/mm3 06/09/19 02:00 0.0 K/mm3 06/09/19 02:00 Blast Cells # 0.0 K/mm3 06/09/19 02:00 WBC Morphology Not Reportable 06/09/19 02:00 Hypersegmented Neuts Not Reportable 06/09/19 02:00 Hyposegmented Neuts Not Reportable 06/09/19 02:00 Hypogranular Neuts Not Reportable 06/09/19 02:00 Not Reportable 06/09/19 02:00 Not Reportable 06/09/19 02:00 Not Reportable 06/09/19 02:00 Not Reportable 06/09/19 02:00 Not Reportable 06/09/19 02:00 Not Reportable 06/09/19 02:00 Consistent w auto 06/09/19 02:00 Not Reportable 06/09/19 02:00 Plt Clumps, EDTA Not Reportable 06/09/19 02:00 Not Reportable 06/09/19 02:00 Not Reportable 06/09/19 02:00 Not Reportable 06/09/19 02:00 Plt Morphology Comment Not Reportable 06/09/19 02:00 RBC Morphology Not Reportable 06/09/19 02:00 Dimorphic RBCs Not Reportable 06/09/19 02:00 Not Reportable 06/09/19 02:00 Not Reportable 06/09/19 02:00 Few 06/09/19 02:00 Few 06/09/19 02:00 Not Reportable 06/09/19 02:00 Not Reportable 06/09/19 02:00 Not Reportable 06/09/19 02:00 Not Reportable 06/09/19 02:00 Not Reportable 06/09/19 02:00 Not Reportable 06/09/19 02:00 Not Reportable 06/09/19 02:00 Not Reportable 06/09/19 02:00 Not Reportable 06/09/19 02:00 Not Reportable 06/09/19 02:00 Not Reportable 06/09/19 02:00 Not Reportable 06/09/19 02:00 Not Reportable 06/09/19 02:00 Not Reportable 06/09/19 02:00 Rare 06/09/19 02:00 Acanthocytes (Spur) Not Reportable 06/09/19 02:00 Rouleaux Not Reportable 06/09/19 02:00 Not Reportable 06/09/19 02:00 Not Reportable 06/09/19 02:00 Not Reportable 06/09/19 02:00 Not Reportable 06/09/19 02:00 Hem Pathologist Commnt No 06/09/19 02:00 PT 14.3 Sec. (12.2-14.9) 06/08/19 11:19 INR 1.14 (0.87-1.13) H 06/08/19 11:19 APTT 23.0 Sec. (24.2-36.6) L 06/08/19 11:19 Sodium 140 mmol/L (137-145) 06/09/19 02:00 Potassium 4.0 mmol/L (3.6-5.0) 06/09/19 02:00 Chloride 94.4 mmol/L (98-107) L 06/09/19 02:00 Carbon Dioxide 16 mmol/L (22-30) L 06/09/19 02:00 34 mmol/L 06/09/19 02:00 BUN 30 mg/dL (9-20) H 06/09/19 02:00 7.4 mg/dL (0.8-1.5) H 06/09/19 02:00 Estimated GFR 10 ml/min 06/09/19 02:00 4 % 06/09/19 02:00 Glucose 329 mg/dL (75-100) H 06/09/19 02:00 POC Glucose 301 (70-105) H 06/09/19 01:38 7.8 % (4-6) H 06/08/19 11:19 Lactic Acid 5.10 mmol/L (0.7-2.0) H* 06/08/19 15:45 Calcium 8.0 mg/dL (8.4-10.2) L 06/09/19 02:00 Magnesium 2.00 mg/dL (1.7-2.3) 06/08/19 11:19 0.50 mg/dL (0.1-1.2) 06/09/19 02:00 AST 17 units/L (5-40) 06/09/19 02:00 ALT 14 units/L (7-56) 06/09/19 02:00 84 units/L (35-129) 06/09/19 02:00 234 units/L (55-170) H 06/09/19 02:00 CK-MB (CK-2) 8.0 ng/mL (0.0-4.0) H 06/09/19 02:00 CK-MB (CK-2) Rel Index 3.4 (0-4) 06/09/19 02:00 0.350 ng/mL (0.00-0.029) H* 06/09/19 02:00 7.5 g/dL (6.3-8.2) 06/09/19 02:00 4.4 g/dL (3.9-5) 06/09/19 02:00 1.4 % 06/09/19 02:00 Triglycerides 254 mg/dL (2-149) H 06/08/19 11:19 Cholesterol 165 mg/dL (50-199) 06/08/19 11:19 100 mg/dL (50-130) 06/08/19 11:19 40 mg/dL (40-59) 06/08/19 11:19 4.12 % 06/08/19 11:19 Hepatitis A IgM Ab Non-reactive (NonReactive) 06/08/19 11:19 Hep Bs Antigen Non-reactive (Negative) 06/08/19 11:19 Hep B Core IgM Ab Non-reactive (NonReactive) 06/08/19 11:19 Non-reactive (NonReactive) 06/08/19 11:19 Active Medications - Current Medications Current Medications: Generic Name Dose Route Start Last Admin Trade Name Freq PRN Reason Stop Dose Admin Acetaminophen 650 mg 06/08/19 20:32 Tylenol PO Q4H PRN Pain MILD(1-3)/Fever >100.5/SOARES Calcium Acetate 1,334 mg 06/09/19 08:00 Phoslo PO TIDWM [facility] Famotidine 10 mg 06/08/19 22:00 06/08/19 21:03 Pepcid IV 10 mg BID SANDRINE Administration Hydromorphone HCl 0.5 mg 06/08/19 20:32 06/09/19 05:46 Dilaudid IV 0.5 mg Q3H PRN Administration Pain , Severe (7-10) Sodium Chloride 100 mls @ 999 mls/hr 06/08/19 15:13 Nacl 0.9% IV MARI PRN Hypotension Nicardipine HCl 50 mg/ Sodium 250 mls @ 25 mls/hr 06/09/19 02:00 06/09/19 06:06 Chloride IV 7.5 mg/hr TITR SANDRINE 37.5 mls/hr Titration Protocol 5 MG/HR Insulin Glargine 20 units 06/08/19 22:00 06/08/19 23:17 Lantus SUB-Q Not Given QHS [facility] Insulin Human Lispro 0 unit 06/08/19 22:00 06/08/19 23:17 Humalog SUB-Q Not Given ACHS [facility] Protocol Insulin Human Regular 5 units 06/09/19 07:30 Humulin R SUB-Q TIDAC [facility] Nitroglycerin 0.5 inch 06/09/19 01:45 Nitro-Bid 2% TP BIDNTG [facility] Protocol Ondansetron HCl 4 mg 06/08/19 20:32 06/09/19 05:01 Zofran IV 4 mg Q3H PRN Administration Nausea And Vomiting Promethazine HCl 25 mg 06/08/19 20:32 06/08/19 23:10 Phenergan [place] 25 mg Q6H PRN Administration N/V IF NPO AND NO IV ACCESS Sodium Chloride 10 ml 06/08/19 22:00 06/08/19 22:23 Sodium Chloride Flush Syringe 10 Ml IV 10 ml BID SANDRINE Administration Sodium Chloride 10 ml 06/08/19 20:32 Sodium Chloride Flush Syringe 10 Ml IV PRN PRN LINE FLUSH
[2019-06-09] MEDS: PEPCID IV SCH (09:36)
[2019-06-09] MEDS: SODIUM CHLORIDE FLUSH SYRINGE 10 ML IV SCH (09:37)
--- NOTE | 2019-06-09 10:56 | Progress Note ---
Assessment and Plan Impression: * End stage renal disease * Intractable N/V most likely secondary to diabetic gastroparesis * Chest pain --Normal perfusion MPI - Jan 2019 * Lactic acidosis * Elevated troponin, chronic * Type I DM * Hypertension * Anemia secondary to ESRD * Secondary hyperparathyroidism Plan: * Patient had uneventful hemodialysis yesterday. * Clinically does not appear to be volume overloaded. * Patient continues to have nausea and vomiting. * Continue MWF schedule * Symptomatic management per primary team * Epogen TIW prn * Dose medications for renal function * His blood pressure seems to be better with Cardene drip. Subjective Date of service: 06/09/19 Interval history: Patient remains in ICU. Appears comfortable. On Cardene drip. Continues to have nausea and vomiting. Also complains of some epigastric discomfort. Uneventful hemodialysis yesterday Objective - Vital Signs Vital signs: Vital Signs - 12hr 06/09/19 06/09/19 06/09/19 01:15 01:19 01:45 Temperature 98.9 F Pulse Rate 126 H Respiratory 22 15 Rate Blood Pressure 227/102 O2 Sat by Pulse 98 99 Oximetry 06/09/19 06/09/19 06/09/19 01:58 02:00 02:06 Temperature 99.1 F Pulse Rate 124 H 123 H Respiratory 32 H 23 Rate Blood Pressure O2 Sat by Pulse 98 Oximetry 06/09/19 06/09/19 06/09/19 02:10 02:20 02:30 Temperature Pulse Rate 120 H 122 H 129 H Respiratory 19 22 21 Rate Blood Pressure 238/103 238/103 228/94 O2 Sat by Pulse 99 99 99 Oximetry 06/09/19 06/09/19 06/09/19 02:40 02:44 02:50 Temperature Pulse Rate 126 H 125 H Respiratory 21 13 22 Rate Blood Pressure 242/90 242/90 O2 Sat by Pulse 99 97 Oximetry 06/09/19 06/09/19 06/09/19 02:58 03:00 03:11 Temperature 97.8 F Pulse Rate 123 H 122 H Respiratory 17 13 Rate Blood Pressure 197/95 199/98 O2 Sat by Pulse 94 96 Oximetry 06/09/19 06/09/19 06/09/19 03:21 03:30 03:41 Temperature Pulse Rate 122 H 123 H 137 H Respiratory 16 14 17 Rate Blood Pressure 160/88 179/92 160/88 O2 Sat by Pulse 95 96 99 Oximetry 06/09/19 06/09/19 06/09/19 03:51 04:00 04:11 Temperature Pulse Rate 121 H 116 H 118 H Respiratory 14 17 19 Rate Blood Pressure 162/80 137/78 137/78 O2 Sat by Pulse 97 94 96 Oximetry 06/09/19 06/09/19 06/09/19 04:21 04:30 04:41 Temperature Pulse Rate 118 H 123 H 133 H Respiratory 16 15 16 Rate Blood Pressure 130/73 151/87 137/78 O2 Sat by Pulse 95 95 98 Oximetry 06/09/19 06/09/19 06/09/19 04:51 05:00 05:11 Temperature Pulse Rate 147 H 117 H 117 H Respiratory 16 13 28 H Rate Blood Pressure 201/93 174/74 174/74 O2 Sat by Pulse 99 96 99 Oximetry 06/09/19 06/09/19 06/09/19 05:21 05:31 05:41 Temperature Pulse Rate 113 H 127 H 132 H Respiratory 18 16 28 H Rate Blood Pressure 144/76 144/76 144/76 O2 Sat by Pulse 95 96 99 Oximetry 06/09/19 06/09/19 05:51 06:01 Temperature Pulse Rate 122 H 124 H Respiratory 14 17 Rate Blood Pressure 211/94 211/94 O2 Sat by Pulse 99 96 Oximetry - General Appearance General appearance: well-developed, well-nourished, appears stated age EENT: PERRL, mucous membranes moist Neck: no JVD, no thyromegaly, no carotid bruit, supple Respiratory: Present: Clear to Ascultation Cardiology: regular, normal heart rate, S1S2, no murmurs Gastrointestinal: normal, normoactive bowel sounds, tenderness (mild epigastric tenderness) Integumentary: no rash, other (AV fistula right upper arm. Good bruit and thrill.) - Lab 06/09/19 02:00 06/09/19 02:00 Most recent lab results Calcium 8.0 mg/dL (8.4-10.2) L 06/09/19 02:00 Magnesium 2.00 mg/dL (1.7-2.3) 06/08/19 11:19 Medications & Allergies - Medications Allergies/Adverse Reactions: Allergies cefazolin [From [facility]] Allergy (Verified 07/21/18 13:02) Vomiting shellfish derived Allergy (Verified 06/08/18 15:09) Anaphylaxis iodine Adverse Reaction (Severe, Verified 06/08/18 15:09) Vomiting IV dye Adverse Reaction (Severe, Uncoded 04/28/18 08:49) Vomiting Home Medications: Home Medications Medication Instructions Recorded Confirmed Last Taken Type Insulin Glargine [Lantus VIAL] 20 units SUB-Q QHS units 04/04/19 06/08/19 06/04/19 Rx 10 units Calcium Acetate [Phoslo] 1,334 mg PO TIDWM 06/05/19 06/08/19 06/04/19 History 667mg Clonidine HCl [Catapres] 0.3 mg PO BID 06/05/19 06/08/19 06/05/19 05:00 History Insulin Regular, Human [Novolin R] 3 - 5 unit SQ TID 06/05/19 06/08/19 06/04/19 18:00 History 3 units amLODIPine [Norvasc] 10 mg PO DAILY 06/08/19 06/08/19 Unknown History Active Medications: Generic Name Dose Route Start Last Admin Trade Name Freq PRN Reason Stop Dose Admin Acetaminophen 650 mg 06/08/19 20:32 Tylenol PO Q4H PRN Pain MILD(1-3)/Fever >100.5/SOARES Calcium Acetate 1,334 mg 06/09/19 08:00 06/09/19 08:00 Phoslo PO 1,334 mg TIDWM [facility] Administration Famotidine 10 mg 06/08/19 22:00 06/09/19 09:36 Pepcid IV 10 mg BID [facility] Administration Hydromorphone HCl 0.5 mg 06/08/19 20:32 06/09/19 09:36 Dilaudid IV 0.5 mg Q3H PRN Administration Pain , Severe (7-10) Sodium Chloride 100 mls @ 999 mls/hr 06/08/19 15:13 Nacl 0.9% IV MARI PRN Hypotension Nicardipine HCl 50 mg/ Sodium 250 mls @ 25 mls/hr 06/09/19 02:00 06/09/19 06:06 Chloride IV 7.5 mg/hr TITR [facility] 37.5 mls/hr Titration Protocol 5 MG/HR Insulin Glargine 20 units 06/08/19 22:00 06/08/19 23:17 Lantus SUB-Q Not Given QHS [facility] Insulin Human Lispro 0 unit 06/08/19 22:00 06/09/19 07:30 Humalog SUB-Q 8 unit ACHS [facility] Administration Protocol Insulin Human Regular 5 units 06/09/19 07:30 06/09/19 07:30 Humulin R SUB-Q 5 units TIDAC [facility] Administration Nitroglycerin 0.5 inch 06/09/19 01:45 06/09/19 06:00 Nitro-Bid 2% TP Not Given BIDNTG [facility] Protocol Ondansetron HCl 4 mg 06/08/19 20:32 06/09/19 05:01 Zofran IV 4 mg Q3H PRN Administration Nausea And Vomiting Promethazine HCl 25 mg 06/08/19 20:32 06/08/19 23:10 Phenergan MA 25 mg Q6H PRN Administration N/V IF NPO AND NO IV ACCESS Sodium Chloride 10 ml 06/08/19 22:00 06/09/19 09:37 Sodium Chloride Flush Syringe 10 Ml IV 10 ml BID [facility] Administration Sodium Chloride 10 ml 06/08/19 20:32 Sodium Chloride Flush Syringe 10 Ml IV PRN PRN LINE FLUSH
[2019-06-09 11:16] LABS: Creatine Kinase MB 8.4 ng/mL (0.0-4.0)
--- NOTE | 2019-06-09 11:24 | Consultation ---
History of Present Illness Consult date: 06/09/19 Consult reason: chest pain History of present illness: The patient presents to the ER with complaints of diffuse abdominal pain, nausea, vomiting, chest wall pain, occasionally vomiting blood, malaise, fatigue, and chills. Symptoms started on Tuesday. They are constant. They do not radiate anywhere. They worsen with attempting to eat and drink. This is similar to prior episodes of gastroparesis. Last night the patient experienced an episode of chest pain, substernal and without radiation. Past History Past Medical History: anemia (secondary to ESRD), diabetes (w/ diabetic gastroparesis), ESRD, hypertension Past Surgical History: Other (AV access surgery) Social history: no significant social history Family history: no significant family history Medications and Allergies Allergies Allergy/AdvReac Type Severity Reaction Status Date / Time cefazolin [From [facility]] Allergy Vomiting Verified 07/21/18 13:02 shellfish derived Allergy Anaphylaxis Verified 06/08/18 15:09 iodine AdvReac Severe Vomiting Verified 06/08/18 15:09 IV dye AdvReac Severe Vomiting Uncoded 04/28/18 08:49 Home Medications Medication Instructions Recorded Confirmed Last Taken Type Insulin Glargine [Lantus VIAL] 20 units SUB-Q QHS units 04/04/19 06/08/19 06/04/19 Rx 10 units Calcium Acetate [Phoslo] 1,334 mg PO TIDWM 06/05/19 06/08/19 06/04/19 History 667mg Clonidine HCl [Catapres] 0.3 mg PO BID 06/05/19 06/08/19 06/05/19 05:00 History Insulin Regular, Human [Novolin R] 3 - 5 unit SQ TID 06/05/19 06/08/19 06/04/19 18:00 History 3 units amLODIPine [Norvasc] 10 mg PO DAILY 06/08/19 06/08/19 Unknown History Active Meds: Active Medications Acetaminophen (Tylenol) 650 mg PO Q4H PRN PRN Reason: Pain MILD(1-3)/Fever >100.5/SOARES Calcium Acetate (Phoslo) 1,334 mg PO TIDWM [facility] Last Admin: 06/09/19 08:00 Dose: 1,334 mg Documented by: Famotidine (Pepcid) 10 mg IV BID [facility] Last Admin: 06/09/19 09:36 Dose: 10 mg Documented by: Hydromorphone HCl (Dilaudid) 0.5 mg IV Q3H PRN PRN Reason: Pain , Severe (7-10) Last Admin: 06/09/19 09:36 Dose: 0.5 mg Documented by: Sodium Chloride (Nacl 0.9%) 100 mls @ 999 mls/hr IV MARI PRN PRN Reason: Hypotension Nicardipine HCl 50 mg/ Sodium (Chloride) 250 mls @ 25 mls/hr IV TITR [facility]; Protocol Last Titration: 06/09/19 06:06 Dose: 7.5 mg/hr, 37.5 mls/hr Documented by: Insulin Glargine (Lantus) 20 units SUB-Q QHS [facility] Last Admin: 06/08/19 23:17 Dose: Not Given Documented by: Insulin Human Lispro (Humalog) 0 unit SUB-Q ACHS [facility]; Protocol Last Admin: 06/09/19 07:30 Dose: 8 unit Documented by: Insulin Human Regular (Humulin R) 5 units SUB-Q TIDAC [facility] Last Admin: 06/09/19 07:30 Dose: 5 units Documented by: Nitroglycerin (Nitro-Bid 2%) 0.5 inch TP BIDNTG [facility]; Protocol Last Admin: 06/09/19 06:00 Dose: Not Given Documented by: Ondansetron HCl (Zofran) 4 mg IV Q3H PRN PRN Reason: Nausea And Vomiting Last Admin: 06/09/19 05:01 Dose: 4 mg Documented by: Promethazine HCl (Phenergan) 25 mg ME Q6H PRN PRN Reason: N/V IF NPO AND NO IV ACCESS Last Admin: 06/08/19 23:10 Dose: 25 mg Documented by: Sodium Chloride (Sodium Chloride Flush Syringe 10 Ml) 10 ml IV BID [facility] Last Admin: 06/09/19 09:37 Dose: 10 ml Documented by: Sodium Chloride (Sodium Chloride Flush Syringe 10 Ml) 10 ml IV PRN PRN PRN Reason: LINE FLUSH Review of Systems All systems: negative (pertinent postives stated in HPI) Physical Examination Vital Signs Temp Pulse Resp BP Pulse Ox 98.8 F 103 H 19 224/124 97 06/08/19 10:23 06/08/19 10:23 06/08/19 10:23 06/08/19 10:23 06/08/19 10:23 General appearance: no acute distress HEENT: Positive: PERRL Neck: Positive: neck supple Cardiac: Positive: Reg Rate and Rhythm, S1/S2 Lungs: Positive: Normal Exam Neuro: Positive: Grossly Intact Abdomen: Positive: Soft, Active Bowel Sounds Extremities: Absent: edema Results 06/09/19 02:00 06/09/19 02:00 Cardiac Enzymes 06/08/19 06/09/19 06/09/19 Range/Units 11:19 02:00 02:00 AST 22 17 (5-40) units/L CK-MB (CK-2) 8.0 H (0.0-4.0) ng/mL 06/09/19 Range/Units 10:14 AST (5-40) units/L CK-MB (CK-2) 8.4 H (0.0-4.0) ng/mL Coagulation 06/08/19 Range/Units 11: PT 14.3 (12.2-14.9) Sec. INR 1.14 H (0.87-1.13) APTT 23.0 L (24.2-36.6) Sec. Lipids 06/08/19 Range/Units 11:19 Triglycerides 254 H (2-149) mg/dL Cholesterol 165 (50-199) mg/dL HDL Cholesterol 40 (40-59) mg/dL Cholesterol/HDL Ratio 4.12 % CBC 06/08/19 06/09/19 Range/Units 11:19 02:00 WBC 14.8 H 19.2 H (4.5-11.0) K/mm3 RBC 3.80 3.68 (3.65-5.03) M/mm3 Hgb 11.3 L 11.1 L (11.8-15.2) gm/dl Hct 35.2 L 35.0 L (35.5-45.6) % Plt Count 130 L 137 L (140-440) K/mm3 Lymph # 0.9 L (1.2-5.4) K/mm3 [place] # 0.7 (0.0-0.8) K/mm3 Eos # 0.0 (0.0-0.4) K/mm3 Baso # 0.1 (0.0-0.1) K/mm3 Comprehensive Metabolic Panel 06/08/19 06/09/19 Range/Units 11:19 02:00 Sodium 137 140 (137-145) mmol/L Potassium 4.0 4.0 (3.6-5.0) mmol/L Chloride 90.9 L 94.4 L (98-107) mmol/L Carbon Dioxide 15 L 16 L (22-30) mmol/L BUN 45 H 30 H (9-20) mg/dL Creatinine 10.7 H 7.4 H (0.8-1.5) mg/dL Glucose 230 H 329 H (75-100) mg/dL Calcium 8.3 L D 8.0 L (8.4-10.2) mg/dL AST 22 17 (5-40) units/L ALT 17 14 (7-56) units/L Alkaline Phosphatase 89 84 (35-129) units/L Total Protein 7.6 7.5 (6.3-8.2) g/dL Albumin 4.6 4.4 (3.9-5) g/dL Assessment and Plan Hypertensive urgency - maximize antihypertensive therapy. titrate off cardene. SIRS (systemic inflammatory response syndrome) - management per ICU ESRD (end stage renal disease) on dialysis - management per nephrology Diabetes mellitus, insulin dependent (IDDM), uncontrolled - management per primary Gastroparesis - management per primary. Cont symptomatic treatment Chest pain - atypical chest pain. Troponins plateaued and elevated secondary to renal failure. Nuclear stress test 11/24 showed a normal perfusion scan. consider further ischemic workup when acute issues resolved and blood pressure controlled.
[2019-06-09] MEDS ORDERED: NORMODYNE IV ONE (12:03)
--- NOTE | 2019-06-09 12:13 | Consultation ---
History of Present Illness - Reason for Consult Consult date: 06/09/19 Hypertensive Urgency Requesting physician: SOPHIA STATON - History of Present Illness 38 y/o with severe gastroparesis admitted with hypertensive urgency. patient takes clonidine and norvasc at home but when the gastroparesis is flaring he cannot keep them down. Today he is awake and alert. Tachy and on Cardene drip but BP is not well controlled based on last readings from around 0800 Past History Past Medical History: anemia (secondary to ESRD), diabetes (w/ diabetic gastroparesis), ESRD, hypertension Past Surgical History: Other (AV access surgery) Social history: no significant social history Family history: no significant family history Medications and Allergies Allergies Allergy/AdvReac Type Severity Reaction Status Date / Time cefazolin [From [facility]] Allergy Vomiting Verified 07/21/18 13:02 shellfish derived Allergy Anaphylaxis Verified 06/08/18 15:09 iodine AdvReac Severe Vomiting Verified 06/08/18 15:09 IV dye AdvReac Severe Vomiting Uncoded 04/28/18 08:49 Home Medications Medication Instructions Recorded Confirmed Last Taken Type Insulin Glargine [Lantus VIAL] 20 units SUB-Q QHS units 04/04/19 06/08/19 06/04/19 Rx 10 units Calcium Acetate [Phoslo] 1,334 mg PO TIDWM 06/05/19 06/08/19 06/04/19 History 667mg Clonidine HCl [Catapres] 0.3 mg PO BID 06/05/19 06/08/19 06/05/19 05:00 History Insulin Regular, Human [Novolin R] 3 - 5 unit SQ TID 06/05/19 06/08/19 06/04/19 18:00 History 3 units amLODIPine [Norvasc] 10 mg PO DAILY 06/08/19 06/08/19 Unknown History Active Meds: Active Medications Acetaminophen (Tylenol) 650 mg PO Q4H PRN PRN Reason: Pain MILD(1-3)/Fever >100.5/SOARES Calcium Acetate (Phoslo) 1,334 mg PO TIDWM [facility] Last Admin: 06/09/19 11:59 Dose: Not Given Documented by: Clonidine HCl (Catapres-Tts Patch) 0.3 mg TD QWEEK [facility] Famotidine (Pepcid) 10 mg IV BID [facility] Last Admin: 06/09/19 09:36 Dose: 10 mg Documented by: Hydromorphone HCl (Dilaudid) 0.5 mg IV Q3H PRN PRN Reason: Pain , Severe (7-10) Last Admin: 06/09/19 09:36 Dose: 0.5 mg Documented by: Sodium Chloride (Nacl 0.9%) 100 mls @ 999 mls/hr IV MARI PRN PRN Reason: Hypotension Nicardipine HCl 50 mg/ Sodium (Chloride) 250 mls @ 25 mls/hr IV TITR [facility]; Protocol Last Admin: 06/09/19 11:58 Dose: 10 mg/hr, 50 mls/hr Documented by: Insulin Glargine (Lantus) 20 units SUB-Q QHS [facility] Last Admin: 06/08/19 23:17 Dose: Not Given Documented by: Insulin Human Lispro (Humalog) 0 unit SUB-Q ACHS [facility]; Protocol Last Admin: 06/09/19 07:30 Dose: 8 unit Documented by: Insulin Human Regular (Humulin R) 5 units SUB-Q TIDAC [facility] Last Admin: 06/09/19 07:30 Dose: 5 units Documented by: Labetalol HCl (Normodyne) 20 mg IV Q6HR ONE Stop: 06/09/19 12:04 Nitroglycerin (Nitro-Bid 2%) 0.5 inch TP BIDNTG [facility]; Protocol Last Admin: 06/09/19 06:00 Dose: Not Given Documented by: Ondansetron HCl (Zofran) 4 mg IV Q3H PRN PRN Reason: Nausea And Vomiting Last Admin: 06/09/19 05:01 Dose: 4 mg Documented by: Promethazine HCl (Phenergan) 25 mg ME Q6H PRN PRN Reason: N/V IF NPO AND NO IV ACCESS Last Admin: 06/08/19 23:10 Dose: 25 mg Documented by: Sodium Chloride (Sodium Chloride Flush Syringe 10 Ml) 10 ml IV BID [facility] Last Admin: 06/09/19 09:37 Dose: 10 ml Documented by: Sodium Chloride (Sodium Chloride Flush Syringe 10 Ml) 10 ml IV PRN PRN PRN Reason: LINE FLUSH Review of Systems All systems: negative Exam - Constitutional Vitals: Temp Pulse Resp BP Pulse Ox 97.8 F 124 H 17 211/94 96 08/03/19 02:58 06/09/19 06:01 06/09/19 06:01 06/09/19 06:01 06/09/19 06:01 General appearance: Present: no acute distress, obese - EENT Eyes: Present: EOM intact (some strasbismus noted) ENT: hearing intact, clear oral mucosa - Neck Neck: Present: supple, normal ROM, other (large in circumference) - Respiratory Respiratory effort: normal Respiratory: bilateral: diminished Results - Labs CBC & Chem 7: 06/09/19 02:00 06/09/19 02:00 Labs: Abnormal lab results 06/08/19 06/08/19 06/08/19 Range/Units 11:19 11:19 11:19 WBC (4.5-11.0) K/mm3 Hgb (11.8-15.2) gm/dl Hct (35.5-45.6) % MCV (84-94) fl RDW (13.2-15.2) % Plt Count (140-440) K/mm3 Seg Neuts % (Manual) (40.0-70.0) % Lymphocytes % (Manual) (13.4-35.0) % Seg Neutrophils # Man (1.8-7.7) K/mm3 Lymphocytes # (Manual) (1.2-5.4) K/mm3 Chloride (98-107) mmol/L Carbon Dioxide (22-30) mmol/L BUN (9-20) mg/dL Creatinine (0.8-1.5) mg/dL Glucose (75-100) mg/dL POC Glucose (70-105) Hemoglobin A1c 7.8 H (4-6) % Lactic Acid (0.7-2.0) mmol/L Calcium (8.4-10.2) mg/dL Total Creatine Kinase 281 H (55-170) units/L CK-MB (CK-2) (0.0-4.0) ng/mL Troponin T (0.00-0.029) ng/mL Triglycerides 254 H (2-149) mg/dL 06/08/19 06/08/19 06/08/19 Range/Units 14:48 15:45 22:06 WBC (4.5-11.0) K/mm3 Hgb (11.8-15.2) gm/dl Hct (35.5-45.6) % MCV (84-94) fl RDW (13.2-15.2) % Plt Count (140-440) K/mm3 Seg Neuts % (Manual) (40.0-70.0) % Lymphocytes % (Manual) (13.4-35.0) % Seg Neutrophils # Man (1.8-7.7) K/mm3 Lymphocytes # (Manual) (1.2-5.4) K/mm3 Chloride (98-107) mmol/L Carbon Dioxide (22-30) mmol/L BUN (9-20) mg/dL Creatinine (0.8-1.5) mg/dL Glucose (75-100) mg/dL POC Glucose 244 H (70-105) Hemoglobin A1c (4-6) % Lactic Acid 4.80 H* 5.10 H* (0.7-2.0) mmol/L Calcium (8.4-10.2) mg/dL Total Creatine Kinase (55-170) units/L CK-MB (CK-2) (0.0-4.0) ng/mL Troponin T (0.00-0.029) ng/mL Triglycerides (2-149) mg/dL 06/09/19 06/09/19 06/09/19 Range/Units 01:38 02:00 02:00 WBC 19.2 H (4.5-11.0) K/mm3 Hgb 11.1 L (11.8-15.2) gm/dl Hct 35.0 L (35.5-45.6) % MCV 95 H (84-94) fl RDW 16.6 H (13.2-15.2) % Plt Count 137 L (140-440) K/mm3 Seg Neuts % (Manual) 93.0 H (40.0-70.0) % Lymphocytes % (Manual) 5.0 L (13.4-35.0) % Seg Neutrophils # Man 17.9 H (1.8-7.7) K/mm3 Lymphocytes # (Manual) 1.0 L (1.2-5.4) K/mm3 Chloride 94.4 L (98-107) mmol/L Carbon Dioxide 16 L (22-30) mmol/L BUN 30 H (9-20) mg/dL Creatinine 7.4 H (0.8-1.5) mg/dL Glucose 329 H (75-100) mg/dL POC Glucose 301 H (70-105) Hemoglobin A1c (4-6) % Lactic Acid (0.7-2.0) mmol/L Calcium 8.0 L (8.4-10.2) mg/dL Total Creatine Kinase (55-170) units/L CK-MB (CK-2) (0.0-4.0) ng/mL Troponin T (0.00-0.029) ng/mL Triglycerides (2-149) mg/dL 06/09/19 06/09/19 06/09/19 Range/Units 02:00 08:19 10:14 WBC (4.5-11.0) K/mm3 Hgb (11.8-15.2) gm/dl Hct (35.5-45.6) % MCV (84-94) fl RDW (13.2-15.2) % Plt Count (140-440) K/mm3 Seg Neuts % (Manual) (40.0-70.0) % Lymphocytes % (Manual) (13.4-35.0) % Seg Neutrophils # Man (1.8-7.7) K/mm3 Lymphocytes # (Manual) (1.2-5.4) K/mm3 Chloride (98-107) mmol/L Carbon Dioxide (22-30) mmol/L BUN (9-20) mg/dL Creatinine (0.8-1.5) mg/dL Glucose (75-100) mg/dL POC Glucose 414 H (70-105) Hemoglobin A1c (4-6) % Lactic Acid (0.7-2.0) mmol/L Calcium (8.4-10.2) mg/dL Total Creatine Kinase 234 H 216 H (55-170) units/L CK-MB (CK-2) 8.0 H 8.4 H (0.0-4.0) ng/mL Troponin T 0.350 H* 0.369 H* (0.00-0.029) ng/mL Triglycerides (2-149) mg/dL - Imaging and Cardiology Chest x-ray: image reviewed (clear lung parenchyma, mild cardiomegaly) Assessment and Plan 38 y/o male with severe gastroparesis secondary to diabetes admitted with hypertensive urgency 1. Started patient on clonidine patch 2. Also added labetalol [id number] given BP and tachycardia 3. Would not use hydralazine at this point 4. Needs blood sugar control. CCT 31 minutes.
[2019-06-09] MEDS ORDERED: CATAPRES-TTS PATCH TD SCH (14:00)
[2019-06-09 16:33] LABS: Creatine Kinase MB 7.6 ng/mL (0.0-4.0)
[2019-06-09] MEDS: LANTUS SUB-Q SCH (21:50)
--- NOTE | 2019-06-09 22:17 | Progress Note ---
Assessment and Plan Hypertensive urgency - maximize antihypertensive therapy. SIRS (systemic inflammatory response syndrome) - management per ICU ESRD (end stage renal disease) on dialysis - management per nephrology Diabetes mellitus, insulin dependent (IDDM), uncontrolled - management per primary Gastroparesis - management per primary. Cont symptomatic treatment Chest pain - atypical chest pain. Troponins plateaued and elevated secondary to renal failure. Nuclear stress test 11/24 showed a normal perfusion scan. consider further ischemic workup when acute issues resolved and blood pressure controlled. Subjective Date of service: 06/10/19 Interval history: No acute events. Resting comfortably. No chest pain or SOB. Objective Vital Signs Temp Pulse Resp BP Pulse Ox 06/09/19 21:45 107 H 19 156/70 92 06/09/19 21:31 109 H 16 156/70 96 06/09/19 21:15 115 H 16 166/69 96 06/09/19 21:01 108 H 15 175/64 90 06/09/19 20:45 107 H 14 157/76 92 06/09/19 20:31 107 H 14 158/61 98 06/09/19 20:27 98.6 F 06/09/19 20:15 111 H 18 153/72 96 06/09/19 20:01 108 H 15 156/64 93 06/09/19 20:00 108 H 14 92 06/09/19 19:45 109 H 19 155/66 98 06/09/19 19:31 105 H 20 155/66 97 06/09/19 19:21 109 H 20 153/72 99 06/09/19 19:11 111 H 18 211/110 96 06/09/19 19:01 113 H 18 236/119 97 06/09/19 18:51 107 H 20 211/110 90 06/09/19 18:40 106 H 15 211/110 92 06/09/19 18:31 109 H 15 168/75 97 06/09/19 18:21 108 H 15 168/75 99 06/09/19 18:11 107 H 23 168/75 97 06/09/19 18:01 112 H 16 168/75 98 06/09/19 18:00 97.5 F L 06/09/19 17:50 112 H 14 149/84 98 06/09/19 17:41 108 H 21 149/84 98 06/09/19 17:31 108 H 21 149/84 99 06/09/19 17:21 108 H 20 206/104 100 06/09/19 17:11 105 H 16 206/104 100 06/09/19 17:00 103 H 22 206/104 99 06/09/19 16:51 107 H 16 194/96 99 06/09/19 16:41 104 H 14 194/96 99 06/09/19 16:30 102 H 15 194/96 97 06/09/19 16:21 102 H 17 143/82 99 06/09/19 16:11 105 H 11 L 143/82 94 06/09/19 16:00 108 H 16 143/82 97 06/09/19 15:51 107 H 11 L 173/104 96 06/09/19 15:41 107 H 16 173/104 95 06/09/19 15:30 102 H 16 173/104 93 06/09/19 15:21 100 H 13 156/88 94 06/09/19 15:11 101 H 17 156/88 96 06/09/19 15:00 101 H 16 147/84 93 06/09/19 14:51 96 H 14 142/70 98 06/09/19 14:41 97 H 15 142/70 96 06/09/19 14:31 101 H 19 142/70 96 06/09/19 14:21 97 H 15 142/70 93 06/09/19 14:11 96 H 15 142/70 94 06/09/19 14:00 96.5 F L 94 H 16 142/70 90 06/09/19 13:51 94 H 16 183/78 93 06/09/19 13:41 119 H 14 183/78 98 06/09/19 13:31 114 H 13 215/92 98 06/09/19 13:21 116 H 21 215/92 100 06/09/19 13:11 122 H 19 215/92 100 06/09/19 13:01 123 H 21 215/92 100 06/09/19 12:52 121 H 215/92 06/09/19 12:51 121 H 18 215/92 100 06/09/19 12:41 130 H 13 215/92 100 06/09/19 12:31 121 H 18 215/92 100 06/09/19 12:21 115 H 12 215/92 100 06/09/19 12:11 121 H 15 215/92 100 06/09/19 12:01 125 H 14 215/92 06/09/19 12:00 16 95 06/09/19 11:51 115 H 16 215/92 99 06/09/19 11:41 121 H 14 215/92 98 06/09/19 11:31 121 H 17 215/92 98 06/09/19 11:21 120 H 20 215/92 94 06/09/19 11:11 119 H 13 245/109 97 06/09/19 11:01 121 H 17 215/92 98 06/09/19 10:51 120 H 18 215/92 99 06/09/19 10:41 122 H 15 178/82 100 06/09/19 10:30 134 H 23 176/76 97 06/09/19 10:21 115 H 15 178/82 89 06/09/19 10:11 117 H 13 178/82 98 06/09/19 10:00 97.7 F 120 H 12 178/82 97 06/09/19 09:51 123 H 19 153/73 98 06/09/19 09:41 117 H 12 153/70 97 06/09/19 09:31 118 H 16 153/70 96 06/09/19 09:21 121 H 18 153/70 99 06/09/19 09:11 119 H 16 153/70 97 06/09/19 09:01 122 H 21 153/70 100 06/09/19 08:51 126 H 13 153/70 100 06/09/19 08:41 117 H 15 153/70 97 06/09/19 08:31 119 H 14 153/70 95 06/09/19 08:21 130 H 25 H 153/70 99 06/09/19 08:11 121 H 16 153/70 96 06/09/19 08:00 126 H 14 153/70 99 06/09/19 07:51 119 H 14 162/82 98 06/09/19 07:41 116 H 15 165/81 95 06/09/19 07:30 122 H 12 165/81 99 06/09/19 07:21 130 H 25 H 176/76 99 06/09/19 07:11 123 H 18 167/74 97 06/09/19 07:01 128 H 20 167/74 97 06/09/19 06:51 131 H 21 140/80 98 06/09/19 06:41 119 H 15 167/69 93 06/09/19 06:31 118 H 15 167/69 96 06/09/19 06:21 116 H 18 178/92 95 06/09/19 06:11 125 H 13 238/110 95 06/09/19 06:01 124 H 17 211/94 96 06/09/19 05:51 122 H 14 211/94 99 06/09/19 05:41 132 H 28 H 144/76 99 06/09/19 05:31 127 H 16 144/76 96 06/09/19 05:21 113 H 18 144/76 95 06/09/19 05:11 117 H 28 H 174/74 99 06/09/19 05:00 117 H 13 174/74 96 06/09/19 04:51 147 H 16 201/93 99 06/09/19 04:41 133 H 16 137/78 98 06/09/19 04:30 123 H 15 151/87 95 06/09/19 04:21 118 H 16 130/73 95 06/09/19 04:11 118 H 19 137/78 96 06/09/19 04:00 116 H 17 137/78 94 06/09/19 03:51 121 H 14 162/80 97 06/09/19 03:41 137 H 17 160/88 99 06/09/19 03:30 123 H 14 179/92 96 06/09/19 03:21 122 H 16 160/88 95 06/09/19 03:11 122 H 13 199/98 96 06/09/19 03:00 123 H 17 197/95 94 06/09/19 02:58 97.8 F 06/09/19 02:50 125 H 22 242/90 97 06/09/19 02:44 13 06/09/19 02:40 126 H 21 242/90 99 06/09/19 02:30 129 H 21 228/94 99 06/09/19 02:20 122 H 22 238/103 99 06/09/19 02:10 120 H 19 238/103 99 06/09/19 02:06 99.1 F 06/09/19 02:00 123 H 23 98 06/09/19 01:58 124 H 32 H 06/09/19 01:45 15 99 06/09/19 01:19 98.9 F 126 H 98 06/09/19 01:15 22 227/102 06/08/19 22:27 99.5 F 126 H 22 220/99 97 - Physical Examination HEENT: Positive: PERRL Neck: Positive: neck supple Neuro: Positive: Grossly Intact Abdomen: Positive: Soft, Active Bowel Sounds Extremities: Absent: edema - Labs and Meds Cardiac Enzymes 06/09/19 06/09/19 06/09/19 Range/Units 02:00 02:00 10:14 AST 17 (5-40) units/L CK-MB (CK-2) 8.0 H 8.4 H (0.0-4.0) ng/mL 06/09/19 Range/Units 15:50 AST (5-40) units/L CK-MB (CK-2) 7.6 H (0.0-4.0) ng/mL CBC 06/09/19 Range/Units 02:00 WBC 19.2 H (4.5-11.0) K/mm3 RBC 3.68 (3.65-5.03) M/mm3 Hgb 11.1 L (11.8-15.2) gm/dl Hct 35.0 L (35.5-45.6) % Plt Count 137 L (140-440) K/mm3 Comprehensive Metabolic Panel 06/09/19 Range/Units 02:00 Sodium 140 (137-145) mmol/L Potassium 4.0 (3.6-5.0) mmol/L Chloride 94.4 L (98-107) mmol/L Carbon Dioxide 16 L (22-30) mmol/L BUN 30 H (9-20) mg/dL Creatinine 7.4 H (0.8-1.5) mg/dL Glucose 329 H (75-100) mg/dL Calcium 8.0 L (8.4-10.2) mg/dL AST 17 (5-40) units/L ALT 14 (7-56) units/L Alkaline Phosphatase 84 (35-129) units/L Total Protein 7.5 (6.3-8.2) g/dL Albumin 4.4 (3.9-5) g/dL - Imaging and Cardiology EKG: report reviewed
[2019-06-10] MEDS: PEPCID IV SCH ×3 (00:56→23:13)
[2019-06-10] MEDS: SODIUM CHLORIDE FLUSH SYRINGE 10 ML IV SCH ×3 (00:56→23:15)
[2019-06-10] MEDS: ZOFRAN IV PRN (03:53)
[2019-06-10] MEDS: DILAUDID IV PRN ×2 (03:54→11:12)
[2019-06-10] MEDS: CARDENE 50 MG in NACL 0.9% 250ML 230 ML IV SCH ×2 (03:57→23:11)
[2019-06-10 04:59] LABS: Hematocrit 34.1 % (35.5-45.6); Hemoglobin 10.8 gm/dl (11.8-15.2); Mean Corpuscular HGB Conc 32 % (32-34); Mean Corpuscular Volume 96 fl (84-94); Red Blood Count 3.53 M/mm3 (3.65-5.03)
[2019-06-10 05:19] LABS: Calcium 7.6 mg/dL (8.4-10.2)
[2019-06-10 05:43] LABS: Platelet Count 139 K/mm3 (140-440)
[2019-06-10] MEDS: NITRO-BID 2% TP SCH ×2 (06:00→14:00)
[2019-06-10] MEDS: HumaLOG SUB-Q SCH ×4 (07:30→23:14)
[2019-06-10] MEDS ORDERED: REGLAN IV SCH (07:30)
[2019-06-10] MEDS: REGLAN IV SCH ×4 (07:30→23:13)
[2019-06-10] MEDS: HumuLIN R SUB-Q SCH ×3 (07:30→16:30)
[2019-06-10] MEDS: PHOSLO PO SCH ×3 (08:00→16:51)
--- NOTE | 2019-06-10 08:17 | Progress Note ---
Assessment and Plan Assessment and plan: Hypertensive urgency Continue cardene drip BP still elevated Monitor BP nausea and vomiting On Zofran and Reglan gastroparesis Continue Reglan ESRD on dialysis Nephrology folllowing Chest pain cardiology following Elevated Troponin may be chronic SIRS Monitor Diabetes mellitus type 2 Fingerstick q ac and hs Full code status History Interval history: Less nausea and vomiting Chest pain Hospitalist Physical - Physical exam Narrative exam: Gen: Not in acute distress, lying in bed, obese HEENT: Normocephalic, atraumatic Neck: supple, no JVD Heart: S1 and S2 reg tachy, no murmurs, rubs or gallop Lungs: Clear to auscultation, no crackles Abd: soft, non tender, non distended, normal BS, Ext: No edema, no clubbing, no cyanosis Neuro: Awake,alert, Oriented X 3. No focal neuro signs - Constitutional Vitals: Temp Pulse Resp BP Pulse Ox 98.6 F 112 H 16 173/80 100 06/10/19 03:31 06/10/19 07:15 06/10/19 07:15 06/10/19 07:15 06/10/19 07:15 General appearance: Present: no acute distress, well-nourished Results - Labs CBC & Chem 7: 06/10/19 04:07 06/10/19 04:07 Labs: Laboratory Last Values WBC 16.4 K/mm3 (4.5-11.0) H 06/10/19 04:07 RBC 3.53 M/mm3 (3.65-5.03) L 06/10/19 04:07 Hgb 10.8 gm/dl (11.8-15.2) L 06/10/19 04:07 Hct 34.1 % (35.5-45.6) L 06/10/19 04:07 MCV 96 fl (84-94) H 06/10/19 04:07 MCH 31 pg (28-32) 06/10/19 04:07 MCHC 32 % (32-34) 06/10/19 04:07 RDW 17.0 % (13.2-15.2) H 06/10/19 04:07 Plt Count 139 K/mm3 (140-440) L 06/10/19 04:07 Lymph % (Auto) 6.0 % (13.4-35.0) L 06/08/19 11:19 [place] % (Auto) 4.6 % (0.0-7.3) 06/08/19 11:19 Eos % (Auto) 0.0 % (0.0-4.3) 06/08/19 11:19 Baso % (Auto) 0.5 % (0.0-1.8) 06/08/19 11:19 Lymph # 0.9 K/mm3 (1.2-5.4) L 06/08/19 11:19 [place] # 0.7 K/mm3 (0.0-0.8) 06/08/19 11:19 Eos # 0.0 K/mm3 (0.0-0.4) 06/08/19 11: Baso # 0.1 K/mm3 (0.0-0.1) 06/08/19 11:19 Add Manual Diff Complete 06/09/19 02:00 Total Counted 100 06/09/19 02:00 Seg Neutrophils % [employer] 06/09/19 02:00 Seg Neuts % (Manual) 93.0 % (40.0-70.0) H 06/09/19 02:00 0 % 06/09/19 02:00 5.0 % (13.4-35.0) L 06/09/19 02:00 Reactive Lymphs % (Man) 0 % 06/09/19 02:00 2.0 % (0.0-7.3) 06/09/19 02:00 0 % (0.0-4.3) 06/09/19 02:00 0 % (0.0-1.8) 06/09/19 02:00 0 % 06/09/19 02:00 0 % 06/09/19 02:00 0 % 06/09/19 02:00 0 % 06/09/19 02:00 Nucleated RBC % Not Reportable 06/09/19 02:00 Seg Neutrophils # 13.2 K/mm3 (1.8-7.7) H 06/08/19 11:19 Seg Neutrophils # Man 17.9 K/mm3 (1.8-7.7) H 06/09/19 02:00 Band Neutrophils # 0.0 K/mm3 06/09/19 02:00 1.0 K/mm3 (1.2-5.4) L 06/09/19 02:00 Abs React Lymphs (Man) 0.0 K/mm3 06/09/19 02:00 0.4 K/mm3 (0.0-0.8) 06/09/19 02:00 0.0 K/mm3 (0.0-0.4) 06/09/19 02:00 0.0 K/mm3 (0.0-0.1) 06/09/19 02:00 0.0 K/mm3 06/09/19 02:00 0.0 K/mm3 06/09/19 02:00 0.0 K/mm3 06/09/19 02:00 Blast Cells # 0.0 K/mm3 06/09/19 02:00 WBC Morphology Not Reportable 06/09/19 02:00 Hypersegmented Neuts Not Reportable 06/09/19 02:00 Hyposegmented Neuts Not Reportable 06/09/19 02:00 Hypogranular Neuts Not Reportable 06/09/19 02:00 Not Reportable 06/09/19 02:00 Not Reportable 06/09/19 02:00 Not Reportable 06/09/19 02:00 Not Reportable 06/09/19 02:00 Not Reportable 06/09/19 02:00 Not Reportable 06/09/19 02:00 Consistent w auto 06/09/19 02:00 Not Reportable 06/09/19 02:00 Plt Clumps, EDTA Not Reportable 06/09/19 02:00 Not Reportable 06/09/19 02:00 Not Reportable 06/09/19 02:00 Not Reportable 06/09/19 02:00 Plt Morphology Comment Not Reportable 06/09/19 02:00 RBC Morphology Not Reportable 06/09/19 02:00 Dimorphic RBCs Not Reportable 06/09/19 02:00 Not Reportable 06/09/19 02:00 Not Reportable 06/09/19 02:00 Few 06/09/19 02:00 Few 06/09/19 02:00 Not Reportable 06/09/19 02:00 Not Reportable 06/09/19 02:00 Not Reportable 06/09/19 02:00 Not Reportable 06/09/19 02:00 Not Reportable 06/09/19 02:00 Not Reportable 06/09/19 02:00 Not Reportable 06/09/19 02:00 Not Reportable 06/09/19 02:00 Not Reportable 06/09/19 02:00 Not Reportable 06/09/19 02:00 Not Reportable 06/09/19 02:00 Not Reportable 06/09/19 02:00 Not Reportable 06/09/19 02:00 Not Reportable 06/09/19 02:00 Rare 06/09/19 02:00 Acanthocytes (Spur) Not Reportable 06/09/19 02:00 Rouleaux Not Reportable 06/09/19 02:00 Not Reportable 06/09/19 02:00 Not Reportable 06/09/19 02:00 Not Reportable 06/09/19 02:00 Not Reportable 06/09/19 02:00 Hem Pathologist Commnt No 06/09/19 02:00 PT 14.3 Sec. (12.2-14.9) 06/08/19 11:19 INR 1.14 (0.87-1.13) H 06/08/19 11:19 APTT 23.0 Sec. (24.2-36.6) L 06/08/19 11:19 Sodium 143 mmol/L (137-145) 06/10/19 04:07 Potassium 3.7 mmol/L (3.6-5.0) 06/10/19 04:07 Chloride 99.4 mmol/L (98-107) 06/10/19 04:07 Carbon Dioxide 20 mmol/L (22-30) L 06/10/19 04:07 27 mmol/L 06/10/19 04:07 BUN 44 mg/dL (9-20) H 06/10/19 04:07 10.3 mg/dL (0.8-1.5) H 06/10/19 04:07 Estimated GFR 7 ml/min 06/10/19 04:07 4 % 06/10/19 04:07 Glucose 277 mg/dL (75-100) H 06/10/19 04:07 POC Glucose 234 (70-105) H 06/09/19 21:30 7.8 % (4-6) H 06/08/19 11:19 Lactic Acid 5.10 mmol/L (0.7-2.0) H* 06/08/19 15:45 Calcium 7.6 mg/dL (8.4-10.2) L 06/10/19 04:07 Magnesium 2.00 mg/dL (1.7-2.3) 06/08/19 11:19 0.50 mg/dL (0.1-1.2) 06/09/19 02:00 AST 17 units/L (5-40) 06/09/19 02:00 ALT 14 units/L (7-56) 06/09/19 02:00 84 units/L (35-129) 06/09/19 02:00 242 units/L (55-170) H 06/09/19 15:50 CK-MB (CK-2) 7.6 ng/mL (0.0-4.0) H 06/09/19 15:50 CK-MB (CK-2) Rel Index 3.1 (0-4) 06/09/19 15:50 0.376 ng/mL (0.00-0.029) H* 06/09/19 15:50 7.5 g/dL (6.3-8.2) 06/09/19 02:00 4.4 g/dL (3.9-5) 06/09/19 02:00 1.4 % 06/09/19 02:00 Triglycerides 254 mg/dL (2-149) H 06/08/19 11:19 Cholesterol 165 mg/dL (50-199) 06/08/19 11:19 100 mg/dL (50-130) 06/08/19 11:19 40 mg/dL (40-59) 06/08/19 11:19 4.12 % 06/08/19 11:19 Hepatitis A IgM Ab Non-reactive (NonReactive) 06/08/19 11:19 Hep Bs Antigen Non-reactive (Negative) 06/08/19 11:19 Hep B Core IgM Ab Non-reactive (NonReactive) 06/08/19 11:19 Non-reactive (NonReactive) 06/08/19 11:19 Active Medications - Current Medications Current Medications: Generic Name Dose Route Start Last Admin Trade Name Freq PRN Reason Stop Dose Admin Acetaminophen 650 mg 06/08/19 20:32 Tylenol PO Q4H PRN Pain MILD(1-3)/Fever >100.5/SOARES Calcium Acetate 1,334 mg 06/09/19 08:00 06/09/19 17:00 Phoslo PO Not Given TIDWM [facility] Clonidine HCl 0.3 mg 06/09/19 14:00 06/09/19 14:00 Catapres-Tts Patch TD 0.3 mg Sa SANDRINE Administration Famotidine 10 mg 06/08/19 22:00 06/10/19 00:56 Pepcid IV 10 mg BID SANDRINE Administration Hydromorphone HCl 0.5 mg 06/08/19 20:32 06/10/19 03:54 Dilaudid IV 0.5 mg Q3H PRN Administration Pain , Severe (7-10) Sodium Chloride 100 mls @ 999 mls/hr 06/08/19 15:13 Nacl 0.9% IV MARI PRN Hypotension Nicardipine HCl 50 mg/ Sodium 250 mls @ 25 mls/hr 06/09/19 02:00 06/10/19 03:57 Chloride IV 2.5 mg/hr TITR SANDRINE 12.5 mls/hr Administration Protocol 5 MG/HR Insulin Glargine 20 units 06/08/19 22:00 06/09/19 21:50 Lantus SUB-Q Not Given QHS [facility] Insulin Human Lispro 0 unit 06/08/19 22:00 06/09/19 21:50 Humalog SUB-Q Not Given ACHS [facility] Protocol Insulin Human Regular 5 units 06/09/19 07:30 06/09/19 16:30 Humulin R SUB-Q Not Given TIDAC [facility] Metoclopramide HCl 5 mg 06/10/19 07:30 Reglan IV ACHS [facility] Nitroglycerin 0.5 inch 06/09/19 01:45 06/09/19 14:00 Nitro-Bid 2% TP Not Given BIDNTG [facility] Protocol Ondansetron HCl 4 mg 06/08/19 20:32 06/10/19 03:53 Zofran IV 4 mg Q3H PRN Administration Nausea And Vomiting Sodium Chloride 10 ml 06/08/19 22:00 06/10/19 00:56 Sodium Chloride Flush Syringe 10 Ml IV 10 ml BID SANDRINE Administration Sodium Chloride 10 ml 06/08/19 20:32 Sodium Chloride Flush Syringe 10 Ml IV PRN PRN LINE FLUSH
--- NOTE | 2019-06-10 10:42 | Progress Note ---
Assessment and Plan 38 y/o male with severe gastroparesis secondary to diabetes admitted with hypertensive urgency 1. Continue clonidine patch 2. Also added labetalol [id number] given BP and tachycardia, but discontinued. Given his tachycardia, not sure that hydralazine will work for him. Will re- order labetalol IV push scheduled. 3. Cards ordered hydralazine. 4. Needs blood sugar control. 5. Continue ICU monitoring. CCT 31 minutes. Subjective Date of service: 06/10/19 Interval history: patient remains on cardene drip despite adding clonidine patch. BP is better. The labetalol I ordered was discontinued. I cannot figure out why or how but it says it was done by me?. Cards started PO hydralazine but patient only keeping some liquids down. Remains tachy in the 120's. Objective - Constitutional Vitals: Vital Signs - 12hr 06/09/19 06/09/19 06/09/19 22:45 23:01 23:15 Temperature Pulse Rate 110 H 107 H 107 H Respiratory 15 13 13 Rate Blood Pressure 149/62 161/65 149/62 O2 Sat by Pulse 94 90 90 Oximetry 06/09/19 06/09/19 06/09/19 23:18 23:31 23:45 Temperature 98.4 F Pulse Rate 107 H Respiratory 13 14 Rate Blood Pressure 165/69 157/64 O2 Sat by Pulse 89 90 Oximetry 06/10/19 06/10/19 06/10/19 00:00 00:15 00:31 Temperature Pulse Rate 108 H 107 H 108 H Respiratory 14 15 18 Rate Blood Pressure 163/64 163/64 150/62 O2 Sat by Pulse 98 91 96 Oximetry 06/10/19 06/10/19 06/10/19 00:45 01:01 01:15 Temperature Pulse Rate 109 H 107 H 107 H Respiratory 15 14 13 Rate Blood Pressure 155/65 152/72 150/62 O2 Sat by Pulse 97 94 94 Oximetry 06/10/19 06/10/19 06/10/19 01:31 01:45 02:01 Temperature Pulse Rate 106 H 107 H 104 H Respiratory 11 L 11 L 13 Rate Blood Pressure 149/73 152/72 176/80 O2 Sat by Pulse 88 88 94 Oximetry 06/10/19 06/10/19 06/10/19 02:15 02:31 02:45 Temperature Pulse Rate 109 H 106 H 107 H Respiratory 13 12 12 Rate Blood Pressure 176/80 154/85 158/90 O2 Sat by Pulse 96 95 96 Oximetry 06/10/19 06/10/19 06/10/19 03:01 03:15 03:31 Temperature 98.6 F Pulse Rate 103 H 107 H 115 H Respiratory 18 15 13 Rate Blood Pressure 179/110 152/75 162/79 O2 Sat by Pulse 99 100 92 Oximetry 06/10/19 06/10/19 06/10/19 03:45 04:00 04:01 Temperature Pulse Rate 120 H 114 H 113 H Respiratory 16 14 14 Rate Blood Pressure 162/79 185/85 O2 Sat by Pulse 98 95 99 Oximetry 06/10/19 06/10/19 06/10/19 04:15 04:31 04:45 Temperature Pulse Rate 112 H 111 H 108 H Respiratory 16 13 15 Rate Blood Pressure 189/83 189/83 168/80 O2 Sat by Pulse 93 93 Oximetry 06/10/19 06/10/19 06/10/19 05:01 05:15 05:31 Temperature Pulse Rate 108 H 108 H 110 H Respiratory 14 14 16 Rate Blood Pressure 167/67 167/67 153/75 O2 Sat by Pulse 90 Oximetry 06/10/19 06/10/19 06/10/19 05:45 06:01 06:15 Temperature Pulse Rate 114 H 112 H 113 H Respiratory 12 14 19 Rate Blood Pressure 153/75 167/77 159/69 O2 Sat by Pulse 90 89 Oximetry 06/10/19 06/10/19 06/10/19 06:31 06:45 07:01 Temperature Pulse Rate 113 H 119 H 110 H Respiratory 13 21 13 Rate Blood Pressure 153/75 170/74 195/82 O2 Sat by Pulse Oximetry 06/10/19 07:15 Temperature Pulse Rate 112 H Respiratory 16 Rate Blood Pressure 173/80 O2 Sat by Pulse 100 Oximetry General appearance: Present: no acute distress, obese - EENT Eyes: PERRL (some strabismus noted) ENT: hearing intact - Neck Neck: supple, normal ROM - Respiratory Respiratory: bilateral: diminished - Cardiovascular Rhythm: other (sinus tachy) Heart Sounds: Present: S1 & S2 Extremities: no ischemia - Gastrointestinal General gastrointestinal: Present: soft, hypoactive bowel sounds Rectal Exam: deferred - Genitourinary Male genitourinary: deferred - Musculoskeletal Musculoskeletal: other (fistula in right arm) - Labs CBC & Chem 7: 06/10/19 04:07 06/10/19 04:07 Labs: Abnormal lab results 06/09/19 06/09/19 06/09/19 Range/Units 10:14 12:10 15:50 WBC (4.5-11.0) K/mm3 RBC (3.65-5.03) M/mm3 Hgb (11.8-15.2) gm/dl Hct (35.5-45.6) % MCV (84-94) fl RDW (13.2-15.2) % Plt Count (140-440) K/mm3 Carbon Dioxide (22-30) mmol/L BUN (9-20) mg/dL Creatinine (0.8-1.5) mg/dL Glucose (75-100) mg/dL POC Glucose 243 H (70-105) Calcium (8.4-10.2) mg/dL Total Creatine Kinase 216 H 242 H (55-170) units/L CK-MB (CK-2) 8.4 H 7.6 H (0.0-4.0) ng/mL Troponin T 0.369 H* 0.376 H* (0.00-0.029) ng/mL 06/09/19 06/10/19 06/10/19 Range/Units 21:30 04:07 04:07 WBC 16.4 H (4.5-11.0) K/mm3 RBC 3.53 L (3.65-5.03) M/mm3 Hgb 10.8 L (11.8-15.2) gm/dl Hct 34.1 L (35.5-45.6) % MCV 96 H (84-94) fl RDW 17.0 H (13.2-15.2) % Plt Count 139 L (140-440) K/mm3 Carbon Dioxide 20 L (22-30) mmol/L BUN 44 H (9-20) mg/dL Creatinine 10.3 H (0.8-1.5) mg/dL Glucose 277 H (75-100) mg/dL POC Glucose 234 H (70-105) Calcium 7.6 L (8.4-10.2) mg/dL Total Creatine Kinase (55-170) units/L CK-MB (CK-2) (0.0-4.0) ng/mL Troponin T (0.00-0.029) ng/mL 06/10/19 Range/Units 09:13 WBC (4.5-11.0) K/mm3 RBC (3.65-5.03) M/mm3 Hgb (11.8-15.2) gm/dl Hct (35.5-45.6) % MCV (84-94) fl RDW (13.2-15.2) % Plt Count (140-440) K/mm3 Carbon Dioxide (22-30) mmol/L BUN (9-20) mg/dL Creatinine (0.8-1.5) mg/dL Glucose (75-100) mg/dL POC Glucose 384 H (70-105) Calcium (8.4-10.2) mg/dL Total Creatine Kinase (55-170) units/L CK-MB (CK-2) (0.0-4.0) ng/mL Troponin T (0.00-0.029) ng/mL - Imaging and cardiology Chest x-ray: image reviewed Medications & Allergies - Medications Allergies/Adverse Reactions: Allergies cefazolin [From Ancef] Allergy (Verified 07/21/18 13:02) Vomiting shellfish derived Allergy (Verified 06/08/18 15:09) Anaphylaxis iodine Adverse Reaction (Severe, Verified 06/08/18 15:09) Vomiting IV dye Adverse Reaction (Severe, Uncoded 04/28/18 08:49) Vomiting Home Medications: Home Medications Medication Instructions Recorded Confirmed Last Taken Type Insulin Glargine [Lantus VIAL] 20 units SUB-Q QHS units 04/04/19 06/08/19 06/04/19 Rx 10 units Calcium Acetate [Phoslo] 1,334 mg PO TIDWM 06/05/19 06/08/19 06/04/19 History 667mg Clonidine HCl [Catapres] 0.3 mg PO BID 06/05/19 06/08/19 06/05/19 05:00 History Insulin Regular, Human [Novolin R] 3 - 5 unit SQ TID 06/05/19 06/08/19 06/04/19 18:00 History 3 units amLODIPine [Norvasc] 10 mg PO DAILY 06/08/19 06/08/19 Unknown History Active Medications: Generic Name Dose Route Start Last Admin Trade Name Freq PRN Reason Stop Dose Admin Acetaminophen 650 mg 06/08/19 20:32 Tylenol PO Q4H PRN Pain MILD(1-3)/Fever >100.5/SOARES Calcium Acetate 1,334 mg 06/09/19 08:00 06/10/19 08:00 Phoslo PO Not Given TIDWM [facility] Clonidine HCl 0.3 mg 06/09/19 14:00 06/09/19 14:00 Catapres-Tts Patch TD 0.3 mg Sa [facility] Administration Famotidine 10 mg 06/08/19 22:00 06/10/19 09:40 Pepcid IV 10 mg BID [facility] Administration Hydralazine HCl 25 mg 06/10/19 14:00 Apresoline PO Q8HR [facility] Hydromorphone HCl 0.5 mg 06/08/19 20:32 06/10/19 03:54 Dilaudid IV 0.5 mg Q3H PRN Administration Pain , Severe (7-10) Sodium Chloride 100 mls @ 999 mls/hr 06/08/19 15:13 Nacl 0.9% IV MARI PRN Hypotension Nicardipine HCl 50 mg/ Sodium 250 mls @ 25 mls/hr 06/09/19 02:00 06/10/19 03:57 Chloride IV 2.5 mg/hr TITR [facility] 12.5 mls/hr Administration Protocol 5 MG/HR Insulin Glargine 20 units 06/08/19 22:00 06/09/19 21:50 Lantus SUB-Q Not Given QHS [facility] Insulin Human Lispro 0 unit 06/08/19 22:00 06/10/19 07:30 Humalog SUB-Q 8 unit [facility] Administration Protocol Insulin Human Regular 5 units 06/09/19 07:30 06/10/19 07:30 Humulin R SUB-Q 5 units TIDAC [facility] Administration Metoclopramide HCl 5 mg 06/10/19 07:30 Reglan IV ACHS [facility] Nitroglycerin 0.5 inch 06/09/19 01:45 06/09/19 14:00 Nitro-Bid 2% TP Not Given BIDNTG [facility] Protocol Ondansetron HCl 4 mg 06/08/19 20:32 06/10/19 03:53 Zofran IV 4 mg Q3H PRN Administration Nausea And Vomiting Sodium Chloride 10 ml 08/02/19 22:00 06/10/19 09:41 Sodium Chloride Flush Syringe 10 Ml IV 10 ml BID [facility] Administration Sodium Chloride 10 ml 06/08/19 20:32 Sodium Chloride Flush Syringe 10 Ml IV PRN PRN LINE FLUSH
[2019-06-10] MEDS: NORMODYNE IV SCH ×3 (11:00→23:12)
--- NOTE | 2019-06-10 11:37 | Progress Note ---
Assessment and Plan Impression: * End stage renal disease * Intractable N/V most likely secondary to diabetic gastroparesis * Chest pain --Normal perfusion MPI - Jan 2019 * Lactic acidosis * Elevated troponin, chronic * Type I DM * Hypertension * Anemia secondary to ESRD * Secondary hyperparathyroidism Plan: * Schedule patient for hemodialysis for tomorrow * Keep him on MWF schedule as outpatient . * Clinically does not appear to be volume overloaded. * His nausea and vomiting seems to be better. * Symptomatic management per primary team * Epogen TIW prn * Dose medications for renal function * His blood pressure seems to be better with Cardene drip. Resume by mouth antihypertensive meds and slowly wean off Cardene drip Subjective Date of service: 06/10/19 Interval history: Patient feels better today. Denies any more nausea or vomiting. Currently on liquid diet. Epigastric pain is also better. Objective - Vital Signs Vital signs: Vital Signs - 12hr 06/09/19 06/10/19 06/10/19 23:45 00:00 00:15 Temperature Pulse Rate 107 H 108 H 107 H Respiratory 14 14 15 Rate Blood Pressure 157/64 163/64 163/64 O2 Sat by Pulse 90 98 91 Oximetry 06/10/19 06/10/19 06/10/19 00:31 00:45 01:01 Temperature Pulse Rate 108 H 109 H 107 H Respiratory 18 15 14 Rate Blood Pressure 150/62 155/65 152/72 O2 Sat by Pulse 96 97 94 Oximetry 06/10/19 06/10/19 06/10/19 01:15 01:31 01:45 Temperature Pulse Rate 107 H 106 H 107 H Respiratory 13 11 L 11 L Rate Blood Pressure 150/62 149/73 152/72 O2 Sat by Pulse 94 88 88 Oximetry 06/10/19 06/10/19 06/10/19 02:01 02:15 02:31 Temperature Pulse Rate 104 H 109 H 106 H Respiratory 13 13 12 Rate Blood Pressure 176/80 176/80 154/85 O2 Sat by Pulse 94 96 95 Oximetry 06/10/19 06/10/19 06/10/19 02:45 03:01 03:15 Temperature Pulse Rate 107 H 103 H 107 H Respiratory 12 18 15 Rate Blood Pressure 158/90 179/110 152/75 O2 Sat by Pulse 96 99 100 Oximetry 06/10/19 06/10/19 06/10/19 03:31 03:45 04:00 Temperature 98.6 F Pulse Rate 115 H 120 H 114 H Respiratory 13 16 14 Rate Blood Pressure 162/79 162/79 O2 Sat by Pulse 92 98 95 Oximetry 06/10/19 06/10/19 06/10/19 04:01 04:15 04:31 Temperature Pulse Rate 113 H 112 H 111 H Respiratory 14 16 13 Rate Blood Pressure 185/85 189/83 189/83 O2 Sat by Pulse 99 93 93 Oximetry 06/10/19 06/10/19 06/10/19 04:45 05:01 05:15 Temperature Pulse Rate 108 H 108 H 108 H Respiratory 15 14 14 Rate Blood Pressure 168/80 167/67 167/67 O2 Sat by Pulse 90 Oximetry 06/10/19 06/10/19 06/10/19 05:31 05:45 06:01 Temperature Pulse Rate 110 H 114 H 112 H Respiratory 16 12 14 Rate Blood Pressure 153/75 153/75 167/77 O2 Sat by Pulse 90 89 Oximetry 06/10/19 06/10/19 06/10/19 06:15 06:31 06:45 Temperature Pulse Rate 113 H 113 H 119 H Respiratory 19 13 21 Rate Blood Pressure 159/69 153/75 170/74 O2 Sat by Pulse Oximetry 06/10/19 06/10/19 06/10/19 07:01 07:15 07:31 Temperature Pulse Rate 110 H 112 H 117 H Respiratory 13 16 11 L Rate Blood Pressure 195/82 173/80 174/78 O2 Sat by Pulse 100 Oximetry 06/10/19 06/10/19 06/10/19 07:45 08:00 08:01 Temperature 98.5 F Pulse Rate 116 H Respiratory 17 12 14 Rate Blood Pressure 174/78 179/78 O2 Sat by Pulse 96 95 100 Oximetry 06/10/19 06/10/19 06/10/19 08:15 08:30 08:45 Temperature Pulse Rate 113 H 112 H 107 H Respiratory 13 18 16 Rate Blood Pressure 182/78 193/63 171/63 O2 Sat by Pulse 93 91 92 Oximetry 06/10/19 06/10/19 06/10/19 09:01 09:15 09:31 Temperature Pulse Rate 118 H 118 H 116 H Respiratory 11 L 11 L Rate Blood Pressure 160/70 160/70 169/83 O2 Sat by Pulse 85 92 94 Oximetry 06/10/19 06/10/19 06/10/19 09:45 10:01 10:15 Temperature Pulse Rate 114 H 113 H 121 H Respiratory 13 14 17 Rate Blood Pressure 169/83 159/75 159/75 O2 Sat by Pulse 96 95 96 Oximetry 06/10/19 06/10/19 06/10/19 10:31 10:45 11:00 Temperature Pulse Rate 118 H 117 H 112 H Respiratory 15 17 Rate Blood Pressure 169/77 169/77 160/69 O2 Sat by Pulse 95 95 Oximetry 06/10/19 06/10/19 11:01 11:15 Temperature Pulse Rate 118 H 114 H Respiratory 17 13 Rate Blood Pressure 160/70 160/70 O2 Sat by Pulse 97 89 Oximetry - General Appearance General appearance: well-developed, well-nourished, appears stated age EENT: PERRL, mucous membranes moist Neck: no JVD, no thyromegaly, no carotid bruit, supple Respiratory: Present: Clear to Ascultation Cardiology: regular, normal heart rate Gastrointestinal: normal, normoactive bowel sounds Integumentary: no rash, other (AV fistula right upper arm. Good bruit and thrill.) - Lab 06/10/19 04:07 06/10/19 04:07 Most recent lab results Calcium 7.6 mg/dL (8.4-10.2) L 06/10/19 04:07 Magnesium 2.00 mg/dL (1.7-2.3) 06/08/19 11:19 Medications & Allergies - Medications Allergies/Adverse Reactions: Allergies cefazolin [From Anc] Allergy (Verified 07/21/18 13:02) Vomiting shellfish derived Allergy (Verified 06/08/18 15:09) Anaphylaxis iodine Adverse Reaction (Severe, Verified 06/08/18 15:09) Vomiting IV dye Adverse Reaction (Severe, Uncoded 04/28/18 08:49) Vomiting Home Medications: Home Medications Medication Instructions Recorded Confirmed Last Taken Type Insulin Glargine [Lantus VIAL] 20 units SUB-Q QHS units 04/04/19 06/08/19 06/04/19 Rx 10 units Calcium Acetate [Phoslo] 1,334 mg PO TIDWM 06/05/19 06/08/19 06/04/19 History 667mg Clonidine HCl [Catapres] 0.3 mg PO BID 07/30/19 08/02/19 07/30/19 05:00 History Insulin Regular, Human [Novolin R] 3 - 5 unit SQ TID 06/05/19 06/08/19 06/04/19 18:00 History 3 units amLODIPine [Norvasc] 10 mg PO DAILY 06/08/19 06/08/19 Unknown History Active Medications: Generic Name Dose Route Start Last Admin Trade Name Freq PRN Reason Stop Dose Admin Acetaminophen 650 mg 06/08/19 20:32 Tylenol PO Q4H PRN Pain MILD(1-3)/Fever >100.5/SOARES Calcium Acetate 1,334 mg 06/09/19 08:00 06/10/19 08:00 Phoslo PO Not Given TIDWM SANDRINE Clonidine HCl 0.3 mg 06/09/19 14:00 06/09/19 14:00 Catapres-Tts Patch TD 0.3 mg Sa SANDRINE Administration Famotidine 10 mg 06/08/19 22:00 06/10/19 09:40 Pepcid IV 10 mg BID [facility]INE Administration Hydralazine HCl 25 mg 06/10/19 14:00 Apresoline PO Q8HR [facility]INE Hydromorphone HCl 0.5 mg 06/08/19 20:32 06/10/19 11:12 Dilaudid IV 0.5 mg Q3H PRN Administration Pain , Severe (7-10) Sodium Chloride 100 mls @ 999 mls/hr 06/08/19 15:13 Nacl 0.9% IV MARI PRN Hypotension Nicardipine HCl 50 mg/ Sodium 250 mls @ 25 mls/hr 06/09/19 02:00 06/10/19 03:57 Chloride IV 2.5 mg/hr TITR [facility]DRINE 12.5 mls/hr Administration Protocol 5 MG/HR Insulin Glargine 20 units 06/08/19 22:00 06/09/19 21:50 Lantus SUB-Q Not Given QHS [facility] Insulin Human Lispro 0 unit 06/08/19 22:00 06/10/19 07:30 Humalog SUB-Q 8 unit ACHS [facility] Administration Protocol Insulin Human Regular 5 units 06/09/19 07:30 06/10/19 07:30 Humulin R SUB-Q 5 units TIDAC [facility] Administration Labetalol HCl 20 mg 06/10/19 11:00 06/10/19 11:00 Normodyne IV 20 mg Q6H [facility] Administration Metoclopramide HCl 5 mg 06/10/19 07:30 06/10/19 07:30 Reglan IV 5 mg ACHS [facility] Administration Nitroglycerin 0.5 inch 06/09/19 01:45 06/10/19 06:00 Nitro-Bid 2% TP Not Given BIDNTG [facility] Protocol Ondansetron HCl 4 mg 06/08/19 20:32 06/10/19 03:53 Zofran IV 4 mg Q3H PRN Administration Nausea And Vomiting Sodium Chloride 10 ml 06/08/19 22:00 06/10/19 09:41 Sodium Chloride Flush Syringe 10 Ml IV 10 ml BID SANDRINE Administration Sodium Chloride 10 ml 06/08/19 20:32 Sodium Chloride Flush Syringe 10 Ml IV PRN PRN LINE FLUSH
[2019-06-10] MEDS: APRESOLINE PO SCH ×2 (14:00→23:14)
[2019-06-10] MEDS: LANTUS SUB-Q SCH (23:15)
[2019-06-11] MEDS: CARDENE 50 MG in NACL 0.9% 250ML 230 ML IV SCH (04:03)
[2019-06-11 04:36] LABS: Hematocrit 32.9 % (35.5-45.6); Hemoglobin 10.7 gm/dl (11.8-15.2); Mean Corpuscular HGB Conc 33 % (32-34); Mean Corpuscular Volume 93 fl (84-94); Platelet Count 144 K/mm3 (140-440); Red Blood Count 3.52 M/mm3 (3.65-5.03); Red Cell Distribution Width 16.6 % (13.2-15.2)
[2019-06-11 05:00] LABS: Calcium 7.8 mg/dL (8.4-10.2)
[2019-06-11] MEDS: NORMODYNE IV SCH ×2 (05:52→11:00)
[2019-06-11] MEDS: APRESOLINE PO SCH ×3 (05:53→22:42)
[2019-06-11] MEDS: NITRO-BID 2% TP SCH ×2 (05:54→14:00)
[2019-06-11 06:42] LABS: Band Neutrophils # (Manual) 0.2 K/mm3; Total Cells Counted 100
[2019-06-11 06:43] LABS: Basophils % (Manual) 0 % (0.0-1.8); Toxic Vacuolation Few
[2019-06-11 06:44] LABS: Platelet Estimate Consistent w Auto
[2019-06-11] MEDS: HumaLOG SUB-Q SCH ×4 (07:30→22:46)
[2019-06-11] MEDS: REGLAN IV SCH ×4 (07:30→22:41)
[2019-06-11] MEDS: HumuLIN R SUB-Q SCH ×3 (07:30→16:30)
[2019-06-11] MEDS: PHOSLO PO SCH ×3 (08:00→17:00)
--- NOTE | 2019-06-11 08:44 | Progress Note ---
Assessment and Plan Assessment and plan: Patient is 38 yo with hypertension, ESRD on dialysis, presented to the ER with complaints of diffuse abdominal pain, nausea, vomiting, chest wall pain, occasionally vomiting blood, malaise, fatigue, and chills. They worsen with attempting to eat and drink. He is seen and evaluated in the emergency department. He was diagnosed with hypertensive emergency and gastroparesis exacerbation. Patient started on Cardene drip and admitted to ICU. He was put on Zofran and Reglan for gastroparesis and has improved. Currently on Cardene drip at lower dose. Hope to wean off today and transfer to Tele. Hypertensive urgency Still on cardene drip, bit now at 2.5 BP improved Starting oral medications since vomiting has subsided so hopefully can discontinue Cardene drip and transfer out of ICU. nausea and vomiting On Zofran and Reglan gastroparesis, Improved Continue Reglan ESRD on dialysis Nephrology folllowing Chest pain cardiology following Elevated Troponin may be chronic SIRS Monitor Diabetes mellitus type 2 Fingerstick q ac and hs Full code status Poss transfer out of ICU today History Interval history: No more vomiting, since yesterday Chest pain subsided Hospitalist Physical - Physical exam Narrative exam: Gen: Not in acute distress, lying in bed, obese HEENT: Normocephalic, atraumatic Neck: supple, no JVD Heart: S1 and S2 reg tachy, no murmurs, rubs or gallop Lungs: Clear to auscultation, no crackles Abd: soft, non tender, non distended, normal BS, Ext: No edema, no clubbing, no cyanosis Neuro: Awake,alert, Oriented X 3. No focal neuro signs - Constitutional Vitals: Temp Pulse Resp BP Pulse Ox 98.9 F 85 12 161/78 92 06/11/19 04:00 06/11/19 08:00 06/11/19 08:00 06/11/19 08:00 06/11/19 08:00 General appearance: Present: no acute distress, obese Results - Labs CBC & Chem 7: 06/11/19 04:24 06/11/19 04:24 Labs: Laboratory Last Values WBC 15.4 K/mm3 (4.5-11.0) H 06/11/19 04:24 RBC 3.52 M/mm3 (3.65-5.03) L 06/11/19 04:24 Hgb 10.7 gm/dl (11.8-15.2) L 06/11/19 04:24 Hct 32.9 % (35.5-45.6) L 06/11/19 04:24 MCV 93 fl (84-94) 06/11/19 04:24 MCH 31 pg (28-32) 06/11/19 04:24 MCHC 33 % (32-34) 06/11/19 04:24 RDW 16.6 % (13.2-15.2) H 06/11/19 04:24 Plt Count 144 K/mm3 (140-440) 06/11/19 04:24 Lymph % (Auto) 6.0 % (13.4-35.0) L 06/08/19 11:19 Wilkin % (Auto) 4.6 % (0.0-7.3) 06/08/19 11:19 Eos % (Auto) 0.0 % (0.0-4.3) 06/08/19 11:19 Baso % (Auto) 0.5 % (0.0-1.8) 06/08/19 11:19 Lymph # 0.9 K/mm3 (1.2-5.4) L 06/08/19 11:19 Wilkin # 0.7 K/mm3 (0.0-0.8) 06/08/19 11:19 Eos # 0.0 K/mm3 (0.0-0.4) 06/08/19 11:19 Baso # 0.1 K/mm3 (0.0-0.1) 06/08/19 11:19 Add Manual Diff Complete 06/11/19 04:24 Total Counted 100 06/11/19 04:24 Seg Neutrophils % Sustainability Communicator 06/09/19 02:00 Seg Neuts % (Manual) 69.0 % (40.0-70.0) 06/11/19 04:24 1.0 % 06/11/19 04:24 23.0 % (13.4-35.0) 06/11/19 04:24 Reactive Lymphs % (Man) 1.0 % 06/11/19 04:24 5.0 % (0.0-7.3) 06/11/19 04:24 1.0 % (0.0-4.3) 06/11/19 04:24 0 % (0.0-1.8) 06/11/19 04:24 0 % 06/11/19 04:24 0 % 06/11/19 04:24 0 % 06/11/19 04:24 0 % 06/11/19 04:24 Nucleated RBC % Not Reportable 06/11/19 04:24 Seg Neutrophils # 13.2 K/mm3 (1.8-7.7) H 06/08/19 11:19 Seg Neutrophils # Man 10.6 K/mm3 (1.8-7.7) H 06/11/19 04:24 Band Neutrophils # 0.2 K/mm3 06/11/19 04:24 3.5 K/mm3 (1.2-5.4) 06/11/19 04:24 Abs React Lymphs (Man) 0.2 K/mm3 06/11/19 04:24 0.8 K/mm3 (0.0-0.8) 06/11/19 04:24 0.2 K/mm3 (0.0-0.4) 06/11/19 04:24 0.0 K/mm3 (0.0-0.1) 06/11/19 04:24 0.0 K/mm3 06/11/19 04:24 0.0 K/mm3 06/11/19 04:24 0.0 K/mm3 06/11/19 04:24 Blast Cells # 0.0 K/mm3 06/11/19 04:24 WBC Morphology Not Reportable 06/11/19 04:24 Hypersegmented Neuts Not Reportable 06/11/19 04:24 Hyposegmented Neuts Not Reportable 06/11/19 04:24 Hypogranular Neuts Not Reportable 06/11/19 04:24 Not Reportable 06/11/19 04:24 Not Reportable 06/11/19 04:24 Few 06/11/19 04:24 Not Reportable 06/11/19 04:24 Not Reportable 06/11/19 04:24 Not Reportable 06/11/19 04:24 Consistent w auto 06/11/19 04:24 Not Reportable 06/11/19 04:24 Plt Clumps, EDTA Not Reportable 06/11/19 04:24 Not Reportable 06/11/19 04:24 Not Reportable 06/11/19 04:24 Not Reportable 06/11/19 04:24 Plt Morphology Comment Not Reportable 06/11/19 04:24 RBC Morphology Not Reportable 06/11/19 04:24 Dimorphic RBCs Not Reportable 06/11/19 04:24 Not Reportable 06/11/19 04:24 Not Reportable 06/11/19 04:24 Not Reportable 06/11/19 04:24 Not Reportable 06/11/19 04:24 Not Reportable 06/11/19 04:24 Not Reportable 06/11/19 04:24 Not Reportable 06/11/19 04:24 Not Reportable 06/11/19 04:24 Not Reportable 06/11/19 04:24 Not Reportable 06/11/19 04:24 Not Reportable 06/11/19 04:24 Not Reportable 06/11/19 04:24 Not Reportable 06/11/19 04:24 Not Reportable 06/11/19 04:24 Not Reportable 06/11/19 04:24 Not Reportable 06/11/19 04:24 Not Reportable 06/11/19 04:24 Not Reportable 06/11/19 04:24 Not Reportable 06/11/19 04:24 Acanthocytes (Spur) Not Reportable 06/11/19 04:24 Rouleaux Not Reportable 06/11/19 04:24 Not Reportable 06/11/19 04:24 Not Reportable 06/11/19 04:24 Not Reportable 06/11/19 04:24 Not Reportable 06/11/19 04:24 Hem Pathologist Commnt No 06/11/19 04:24 PT 14.3 Sec. (12.2-14.9) 06/08/19 11:19 INR 1.14 (0.87-1.13) H 06/08/19 11:19 APTT 23.0 Sec. (24.2-36.6) L 06/08/19 11:19 Sodium 142 mmol/L (137-145) 06/11/19 04:24 Potassium 3.2 mmol/L (3.6-5.0) L 06/11/19 04:24 Chloride 99.5 mmol/L (98-107) 06/11/19 04:24 Carbon Dioxide 22 mmol/L (22-30) 06/11/19 04:24 24 mmol/L 06/11/19 04:24 BUN 46 mg/dL (9-20) H 06/11/19 04:24 11.9 mg/dL (0.8-1.5) H 06/11/19 04:24 Estimated GFR 6 ml/min 06/11/19 04:24 4 % 06/11/19 04:24 Glucose 173 mg/dL (75-100) H 06/11/19 04:24 POC Glucose 261 (70-105) H 06/11/19 07:50 7.8 % (4-6) H 06/08/19 11:19 Lactic Acid 5.10 mmol/L (0.7-2.0) H* 06/08/19 15:45 Calcium 7.8 mg/dL (8.4-10.2) L 06/11/19 04:24 Magnesium 2.00 mg/dL (1.7-2.3) 06/08/19 11:19 0.50 mg/dL (0.1-1.2) 06/09/19 02:00 AST 17 units/L (5-40) 06/09/19 02:00 ALT 14 units/L (7-56) 06/09/19 02:00 84 units/L (35-129) 06/09/19 02:00 242 units/L (55-170) H 06/09/19 15:50 CK-MB (CK-2) 7.6 ng/mL (0.0-4.0) H 06/09/19 15:50 CK-MB (CK-2) Rel Index 3.1 (0-4) 06/09/19 15:50 0.376 ng/mL (0.00-0.029) H* 06/09/19 15:50 7.5 g/dL (6.3-8.2) 06/09/19 02:00 4.4 g/dL (3.9-5) 06/09/19 02:00 1.4 % 06/09/19 02:00 Triglycerides 254 mg/dL (2-149) H 06/08/19 11:19 Cholesterol 165 mg/dL (50-199) 06/08/19 11:19 100 mg/dL (50-130) 06/08/19 11:19 40 mg/dL (40-59) 06/08/19 11:19 4.12 % 06/08/19 11:19 Hepatitis A IgM Ab Non-reactive (NonReactive) 06/08/19 11:19 Hep Bs Antigen Non-reactive (Negative) 06/08/19 11:19 Hep B Core IgM Ab Non-reactive (NonReactive) 06/08/19 11:19 Non-reactive (NonReactive) 06/08/19 11:19 Active Medications - Current Medications Current Medications: Generic Name Dose Route Start Last Admin Trade Name Freq PRN Reason Stop Dose Admin Acetaminophen 650 mg 06/08/19 20:32 Tylenol PO Q4H PRN Pain MILD(1-3)/Fever >100.5/SOARES Calcium Acetate 1,334 mg 06/09/19 08:00 06/11/19 08:00 Phoslo PO Not Given TIDWM [facility]INE Famotidine 10 mg 06/08/19 22:00 06/10/19 23:13 Pepcid IV 10 mg BID [facility]DRINE Administration Hydralazine HCl 25 mg 06/10/19 14:00 06/11/19 05:53 Apresoline PO Not Given Q8HR [facility] Hydromorphone HCl 0.5 mg 06/08/19 20:32 06/10/19 11:12 Dilaudid IV 0.5 mg Q3H PRN Administration Pain , Severe (7-10) Sodium Chloride 100 mls @ 999 mls/hr 06/08/19 15:13 Nacl 0.9% IV MARI PRN Hypotension Nicardipine HCl 50 mg/ Sodium 250 mls @ 25 mls/hr 06/09/19 02:00 06/11/19 04:45 Chloride IV 0 mg/hr TITR SANDRINE 0 mls/hr Titration Protocol 5 MG/HR Insulin Glargine 20 units 06/08/19 22:00 06/10/19 23:15 Lantus SUB-Q 20 units QHS [facility] Administration Insulin Human Lispro 0 unit 06/08/19 22:00 06/10/19 23:14 Humalog SUB-Q 6 unit ACHS [facility] Administration Protocol Insulin Human Regular 5 units 06/09/19 07:30 06/10/19 16:30 Humulin R SUB-Q 5 units TIDAC [facility] Administration Labetalol HCl 20 mg 06/10/19 11:00 06/11/19 05:52 Normodyne IV Not Given Q6H [facility] Metoclopramide HCl 5 mg 06/10/19 07:30 06/10/19 23:13 Reglan IV 5 mg ACHS [facility] Administration Nitroglycerin 0.5 inch 06/09/19 01:45 06/11/19 05:54 Nitro-Bid 2% TP Not Given BIDNTG [facility] Protocol Ondansetron HCl 4 mg 06/08/19 20:32 06/10/19 03:53 Zofran IV 4 mg Q3H PRN Administration Nausea And Vomiting Sodium Chloride 10 ml 06/08/19 22:00 06/10/19 23:15 Sodium Chloride Flush Syringe 10 Ml IV 10 ml BID [facility]DRINE Administration Sodium Chloride 10 ml 06/08/19 20:32 Sodium Chloride Flush Syringe 10 Ml IV PRN PRN LINE FLUSH
[2019-06-11] MEDS: PEPCID IV SCH (09:03)
[2019-06-11] MEDS: SODIUM CHLORIDE FLUSH SYRINGE 10 ML IV SCH ×2 (09:04→22:46)
--- NOTE | 2019-06-11 09:24 | Progress Note ---
Assessment and Plan Severe gastroparesis End-stage renal disease on hemodialysis Hypertension Diabetes Chronic elevated troponin cardiac cath 04/2015 documents no significant CAD. no ischemia on MPI 11/2017. normal perfusion MPI 01/2019. left ventricle systolic function was normal with ejection fraction 60% on an echocardiogram 07/2018. Conservative cardiac management. Subjective Date of service: 06/11/19 Interval history: Patient is resting in bed comfortably. He denies chest pain and shortness of breath. Objective Vital Signs Temp Pulse Pulse Resp BP Pulse Ox 06/11/19 08:46 83 11 L 164/83 91 06/11/19 08:30 85 12 159/81 91 06/11/19 08:16 84 10 L 182/91 92 06/11/19 08:00 98.5 F 86 85 12 161/78 92 06/11/19 07:46 88 11 L 161/78 91 06/11/19 07:30 82 10 L 120/53 85 06/11/19 07:16 84 10 L 124/54 86 06/11/19 07:00 85 11 L 158/69 85 06/11/19 06:46 86 14 158/69 89 06/11/19 06:30 88 11 L 155/71 86 06/11/19 06:16 84 12 155/71 84 06/11/19 06:00 89 11 L 129/63 87 06/11/19 05:54 84 126/55 06/11/19 05:53 89 126/55 06/11/19 05:52 85 126/55 06/11/19 05:45 88 12 126/55 90 06/11/19 05:30 86 12 123/49 84 06/11/19 05:19 86 12 82 L 06/11/19 05:01 86 12 114/49 83 L 06/11/19 04:45 86 12 128/56 84 06/11/19 04:31 92 H 11 L 128/56 87 06/11/19 04:15 92 H 13 143/46 91 06/11/19 04:01 90 13 143/46 92 06/11/19 04:00 98.9 F 85 86 16 90 06/11/19 03:45 89 12 161/70 92 06/11/19 03:31 88 11 L 154/67 94 06/11/19 03:15 88 11 L 149/62 95 06/11/19 03:01 88 10 L 147/69 90 06/11/19 02:45 88 12 135/72 91 06/11/19 02:31 87 13 135/72 94 06/11/19 02:15 91 H 16 149/62 88 06/11/19 02:01 87 12 158/70 88 06/11/19 01:45 87 14 158/70 89 06/11/19 01:31 87 10 L 158/70 96 06/11/19 01:15 87 14 153/68 90 06/11/19 01:01 88 16 153/68 91 06/11/19 00:45 86 14 156/68 90 06/11/19 00:31 87 14 156/68 91 06/11/19 00:15 85 13 150/72 89 06/11/19 00:01 87 13 150/72 90 06/11/19 00:00 98.6 F 94 H 90 12 90 06/10/19 23:45 90 14 152/74 88 06/10/19 23:31 89 13 152/74 91 06/10/19 23:15 96 H 14 166/78 89 06/10/19 23:14 95 H 166/78 06/10/19 23:12 96 H 166/78 06/10/19 23:01 99 H 14 166/78 93 06/10/19 22:45 97 H 15 175/79 88 06/10/19 22:31 96 H 12 175/79 92 06/10/19 22:15 98 H 15 168/89 93 06/10/19 22:07 94 H 13 186/78 98 06/10/19 22:01 95 H 18 186/78 96 06/10/19 21:45 96 H 15 168/89 96 06/10/19 21:43 102 H 18 168/89 96 06/10/19 21:31 98 H 12 168/89 96 06/10/19 21:15 98 H 13 177/82 90 06/10/19 21:01 102 H 13 175/76 100 06/10/19 20:45 99 H 13 172/78 92 06/10/19 20:31 96 H 13 177/85 93 06/10/19 20:15 94 H 11 L 179/83 94 06/10/19 20:01 95 H 14 166/70 88 06/10/19 20:00 99.4 F 96 H 96 H 12 90 06/10/19 19:45 94 H 13 157/73 88 06/10/19 19:31 93 H 12 152/68 89 06/10/19 19:15 94 H 14 157/73 91 06/10/19 19:01 95 H 15 157/73 91 06/10/19 18:45 93 H 15 165/75 92 06/10/19 18:31 93 H 15 165/75 93 06/10/19 18:15 91 H 15 167/86 95 06/10/19 18:01 92 H 14 191/86 06/10/19 17:45 93 H 13 167/86 97 06/10/19 17:31 91 H 14 167/86 98 06/10/19 17:15 94 H 15 147/72 89 06/10/19 17:01 88 12 159/67 90 06/10/19 16:51 92 H 165/65 06/10/19 16:45 99 H 12 147/72 88 06/10/19 16:31 96 H 11 L 147/72 88 06/10/19 16:15 99 H 12 169/79 87 06/10/19 16:01 101 H 12 169/79 91 06/10/19 16:00 98.1 F 90 89 11 L 92 06/10/19 15:45 105 H 13 195/82 91 06/10/19 15:31 102 H 12 145/77 93 06/10/19 15:15 96 H 14 152/70 88 06/10/19 15:01 94 H 17 152/70 89 06/10/19 14:45 95 H 12 143/65 87 06/10/19 14:30 96 H 12 143/65 86 06/10/19 14:15 95 H 12 145/67 86 06/10/19 14:01 98 H 16 145/67 86 06/10/19 13:45 94 H 12 151/74 83 L 06/10/19 13:31 101 H 13 128/60 94 06/10/19 13:15 95 H 12 133/62 85 06/10/19 13:00 93 H 14 133/62 87 06/10/19 12:45 92 H 12 137/65 83 L 06/10/19 12:31 95 H 11 L 137/65 83 L 06/10/19 12:15 91 H 13 128/59 82 L 06/10/19 12:01 91 H 12 128/59 83 L 06/10/19 12:00 98.4 F 95 H 11 L 90 06/10/19 11:45 90 16 124/55 88 06/10/19 11:31 91 H 12 160/69 79 L 06/10/19 11:15 114 H 13 160/70 89 06/10/19 11:01 118 H 17 160/70 97 06/10/19 11:00 112 H 160/69 06/10/19 10:45 117 H 17 169/77 95 06/10/19 10:31 118 H 15 169/77 95 06/10/19 10:15 121 H 17 159/75 96 06/10/19 10:01 113 H 14 159/75 95 06/10/19 09:45 114 H 13 169/83 96 06/10/19 09:31 116 H 11 L 169/83 94 - Physical Examination General: No Apparent Distress HEENT: Positive: PERRL Neck: Positive: trachea midline Cardiac: Positive: Reg Rate and Rhythm Lungs: Positive: Decreased Breath Sounds Neuro: Positive: Grossly Intact Abdomen: Positive: Soft Extremities: Absent: edema - Labs and Meds CBC 06/11/19 Range/Units 04:24 WBC 15.4 H (4.5-11.0) K/mm3 RBC 3.52 L (3.65-5.03) M/mm3 Hgb 10.7 L (11.8-15.2) gm/dl Hct 32.9 L (35.5-45.6) % Plt Count 144 (140-440) K/mm3 Comprehensive Metabolic Panel 06/11/19 Range/Units 04:24 Sodium 142 (137-145) mmol/L Potassium 3.2 L (3.6-5.0) mmol/L Chloride 99.5 (98-107) mmol/L Carbon Dioxide 22 (22-30) mmol/L BUN 46 H (9-20) mg/dL Creatinine 11.9 H (0.8-1.5) mg/dL Glucose 173 H (75-100) mg/dL Calcium 7.8 L (8.4-10.2) mg/dL
--- NOTE | 2019-06-11 09:42 | Progress Note ---
Subjective Interval history: Patient was seen today for follow-up on multiple renal related issues Events of this hospitalization were noted Currently on maintenance hemodialysis Tuesday and Tuesday Noted to have uncontrolled hypertension Interdisciplinary notes were also reviewed Vitals intake output medications were reviewed Past medical history: Reviewed Family, social history: Reviewed Allergies: Reviewed Physical examination General: No acute distress Vitals: Reviewed HEENT: Oral mucosa moist no icterus Neck: Supple no thyromegaly nodular mass or JVD Chest: Clear to auscultation anteriorly Heart: Regular rate and rhythm S1-S2 heard no S3-S4 Abdomen: Soft nontender no suprapubic masses no organomegaly Extremity: Dry skin less than 1+ edema Psych: No evidence of any agitation and aggression noted Derm: No petechial rash Assessment and plan: End stage renal disease: Patient will continue with hemodialysis on Tuesday We and Tuesday schedule Admitted with nausea vomiting likely due to diabetic gastroparesis: Suggest avoiding any binders such as Renvela Renagel or Fosrenol which could be GI toxic Admitted with lactic acidosis and has elevated troponin which has been a chronic issue Evidence of volume overload ultrafiltration as tolerated Anemia and end-stage renal disease: To monitor and follow erythropoietin as needed Secondary hyperparathyroidism: Periodically check vitamin D and phosphorus level along with PTH Hypertension and volume: To monitor and follow low systolic blood pressure under 150, required a Cardene drip upon admission Likely may have mixed variety of hypertension adding losartan 50 mg once a day and follow Blood pressure may be uncontrolled due to diabetic gastroparesis which can result in labile hypertension Ejection fraction 60% no ischemia noted in perfusion scan in November 2017 Nutrition: High-protein diet due to dialysis status Patient was adequately counseled and educated regarding all the dialysis related issues All renal related issues were discussed with the patient, patient does exhibit good understanding, lab results were also discussed with patient in simple En glish Prognosis: Guarded We'll continue to follow and make recommendation from renal standpoint Objective - Vital Signs Vital signs: Vital Signs - 12hr 06/10/19 06/10/19 06/10/19 21:43 21:45 22:01 Temperature Pulse Rate 102 H 96 H 95 H Pulse Rate [ From Monitor] Respiratory 18 15 18 Rate Blood Pressure 168/89 168/89 186/78 O2 Sat by Pulse 96 96 96 Oximetry 06/10/19 06/10/19 06/10/19 22:07 22:15 22:31 Temperature Pulse Rate 94 H 98 H 96 H Pulse Rate [ From Monitor] Respiratory 13 15 12 Rate Blood Pressure 186/78 168/89 175/79 O2 Sat by Pulse 98 93 92 Oximetry 06/10/19 06/10/19 06/10/19 22:45 23:01 23:12 Temperature Pulse Rate 97 H 99 H 96 H Pulse Rate [ From Monitor] Respiratory 15 14 Rate Blood Pressure 175/79 166/78 166/78 O2 Sat by Pulse 88 93 Oximetry 06/10/19 06/10/19 06/10/19 23:14 23:15 23:31 Temperature Pulse Rate 95 H 96 H 89 Pulse Rate [ From Monitor] Respiratory 14 13 Rate Blood Pressure 166/78 166/78 152/74 O2 Sat by Pulse 89 91 Oximetry 06/10/19 06/11/19 06/11/19 23:45 00:00 00:01 Temperature 98.6 F Pulse Rate 90 94 H 87 Pulse Rate [ 90 From Monitor] Respiratory 14 12 13 Rate Blood Pressure 152/74 150/72 O2 Sat by Pulse 88 90 90 Oximetry 06/11/19 06/11/19 06/11/19 00:15 00:31 00:45 Temperature Pulse Rate 85 87 86 Pulse Rate [ From Monitor] Respiratory 13 14 14 Rate Blood Pressure 150/72 156/68 156/68 O2 Sat by Pulse 89 91 90 Oximetry 06/11/19 06/11/19 06/11/19 01:01 01:15 01:31 Temperature Pulse Rate 88 87 87 Pulse Rate [ From Monitor] Respiratory 16 14 10 L Rate Blood Pressure 153/68 153/68 158/70 O2 Sat by Pulse 91 90 96 Oximetry 06/11/19 06/11/19 06/11/19 01:45 02:01 02:15 Temperature Pulse Rate 87 87 91 H Pulse Rate [ From Monitor] Respiratory 14 12 16 Rate Blood Pressure 158/70 158/70 149/62 O2 Sat by Pulse 89 88 88 Oximetry 06/11/19 06/11/19 06/11/19 02:31 02:45 03:01 Temperature Pulse Rate 87 88 88 Pulse Rate [ From Monitor] Respiratory 13 12 10 L Rate Blood Pressure 135/72 135/72 147/69 O2 Sat by Pulse 94 91 90 Oximetry 06/11/19 06/11/19 06/11/19 03:15 03:31 03:45 Temperature Pulse Rate 88 88 89 Pulse Rate [ From Monitor] Respiratory 11 L 11 L 12 Rate Blood Pressure 149/62 154/67 161/70 O2 Sat by Pulse 95 94 92 Oximetry 06/11/19 06/11/19 06/11/19 04:00 04:01 04:15 Temperature 98.9 F Pulse Rate 85 90 92 H Pulse Rate [ 86 From Monitor] Respiratory 16 13 13 Rate Blood Pressure 143/46 143/46 O2 Sat by Pulse 90 92 91 Oximetry 06/11/19 06/11/19 06/11/19 04:31 04:45 05:01 Temperature Pulse Rate 92 H 86 86 Pulse Rate [ From Monitor] Respiratory 11 L 12 12 Rate Blood Pressure 128/56 128/56 114/49 O2 Sat by Pulse 87 84 83 L Oximetry 06/11/19 06/11/19 06/11/19 05:19 05:30 05:45 Temperature Pulse Rate 86 86 88 Pulse Rate [ From Monitor] Respiratory 12 12 12 Rate Blood Pressure 123/49 126/55 O2 Sat by Pulse 82 L 84 90 Oximetry 06/11/19 06/11/19 06/11/19 05:52 05:53 05:54 Temperature Pulse Rate 85 89 84 Pulse Rate [ From Monitor] Respiratory Rate Blood Pressure 126/55 126/55 126/55 O2 Sat by Pulse Oximetry 06/11/19 06/11/19 06/11/19 06:00 06:16 06:30 Temperature Pulse Rate 89 84 88 Pulse Rate [ From Monitor] Respiratory 11 L 12 11 L Rate Blood Pressure 129/63 155/71 155/71 O2 Sat by Pulse 87 84 86 Oximetry 06/11/19 06/11/19 06/11/19 06:46 07:00 07:16 Temperature Pulse Rate 86 85 84 Pulse Rate [ From Monitor] Respiratory 14 11 L 10 L Rate Blood Pressure 158/69 158/69 124/54 O2 Sat by Pulse 89 85 86 Oximetry 06/11/19 06/11/19 06/11/19 07:30 07:46 08:00 Temperature 98.5 F Pulse Rate 82 88 86 Pulse Rate [ 85 From Monitor] Respiratory 10 L 11 L 12 Rate Blood Pressure 120/53 161/78 161/78 O2 Sat by Pulse 85 91 92 Oximetry 06/11/19 06/11/19 06/11/19 08:16 08:30 08:46 Temperature Pulse Rate 84 85 83 Pulse Rate [ From Monitor] Respiratory 10 L 12 11 L Rate Blood Pressure 182/91 159/81 164/83 O2 Sat by Pulse 92 91 91 Oximetry - Lab 06/11/19 04:24 06/11/19 04:24 Most recent lab results Calcium 7.8 mg/dL (8.4-10.2) L 06/11/19 04:24 Magnesium 2.00 mg/dL (1.7-2.3) 06/08/19 11:19 Medications & Allergies - Medications Allergies/Adverse Reactions: Allergies cefazolin [From [facility]] Allergy (Verified 07/21/18 13:02) Vomiting shellfish derived Allergy (Verified 06/08/18 15:09) Anaphylaxis iodine Adverse Reaction (Severe, Verified 06/08/18 15:09) Vomiting IV dye Adverse Reaction (Severe, Uncoded 04/28/18 08:49) Vomiting Home Medications: Home Medications Medication Instructions Recorded Confirmed Last Taken Type Insulin Glargine [Lantus VIAL] 20 units SUB-Q QHS units 04/04/19 06/08/19 06/04/19 Rx 10 units Calcium Acetate [Phoslo] 1,334 mg PO TIDWM 06/05/19 06/08/19 06/04/19 History 667mg Clonidine HCl [Catapres] 0.3 mg PO BID 06/05/19 06/08/19 06/05/19 05:00 History Insulin Regular, Human [Novolin R] 3 - 5 unit SQ TID 06/05/19 06/08/19 06/04/19 18:00 History 3 units amLODIPine [Norvasc] 10 mg PO DAILY 06/08/19 06/08/19 Unknown History Active Medications: Generic Name Dose Route Start Last Admin Trade Name Freq PRN Reason Stop Dose Admin Acetaminophen 650 mg 06/08/19 20:32 Tylenol PO Q4H PRN Pain MILD(1-3)/Fever >100.5/SOARES Calcium Acetate 1,334 mg 06/09/19 08:00 06/11/19 08:00 Phoslo PO Not Given TIDWM [facility] Clonidine HCl 0.3 mg 06/11/19 10:00 Catapres PO Q12HR [facility] Famotidine 10 mg 06/08/19 22:00 06/11/19 09:03 Pepcid IV 10 mg BID [facility] Administration Hydralazine HCl 25 mg 06/10/19 14:00 06/11/19 05:53 Apresoline PO Not Given Q8HR [facility] Hydromorphone HCl 0.5 mg 06/08/19 20:32 06/10/19 11:12 Dilaudid IV 0.5 mg Q3H PRN Administration Pain , Severe (7-10) Sodium Chloride 100 mls @ 999 mls/hr 06/08/19 15:13 Nacl 0.9% IV MARI PRN Hypotension Nicardipine HCl 50 mg/ Sodium 250 mls @ 25 mls/hr 06/09/19 02:00 06/11/19 04:45 Chloride IV 0 mg/hr TITR [facility] 0 mls/hr Titration Protocol 5 MG/HR Insulin Glargine 20 units 06/08/19 22:00 06/10/19 23:15 Lantus SUB-Q 20 units QHS [facility] Administration Insulin Human Lispro 0 unit 06/08/19 22:00 06/11/19 07:30 Humalog SUB-Q 4 unit ACHS [facility] Administration Protocol Insulin Human Regular 5 units 06/09/19 07:30 06/11/19 07:30 Humulin R SUB-Q 5 units TIDAC [facility] Administration Labetalol HCl 20 mg 06/10/19 11:00 06/11/19 05:52 Normodyne IV Not Given Q6H [facility] Metoclopramide HCl 5 mg 06/10/19 07:30 06/11/19 07:30 Reglan IV 5 mg ACHS [facility] Administration Nitroglycerin 0.5 inch 06/09/19 01:45 06/11/19 05:54 Nitro-Bid 2% TP Not Given BIDNTG [facility] Protocol Ondansetron HCl 4 mg 06/08/19 20:32 06/10/19 03:53 Zofran IV 4 mg Q3H PRN Administration Nausea And Vomiting Sodium Chloride 10 ml 06/08/19 22:00 06/11/19 09:04 Sodium Chloride Flush Syringe 10 Ml IV 10 ml BID [facility] Administration Sodium Chloride 10 ml 06/08/19 20:32 Sodium Chloride Flush Syringe 10 Ml IV PRN PRN LINE FLUSH
[2019-06-11] MEDS: CATAPRES PO SCH ×2 (09:55→22:42)
[2019-06-11] MEDS: COZAAR PO SCH (10:09)
[2019-06-11] MEDS ORDERED: NORMODYNE IV PRN (13:00)
[2019-06-11] MEDS: NORVASC PO SCH (13:00)
--- NOTE | 2019-06-11 16:46 | Progress Note ---
Assessment and Plan Imp: 1. Gastroparesis 2. Intractable N/V 3. Accelerated HTN 4. ESRD 5. Morbid obesity 6. Anemia of chronic disease 7. Lactic acidosis Rec: 1. On PO BP meds now; would add Labetolol if continued issues; renal following 2. HD today, should help some with BP as well 3. Cont. gastroparesis therapy 4. Consider outpatient PSG 5. Repeat lactic acid in AM 6. Weight loss 7. Okay to go to floor if he can come off and stay off Cardene today CCT 31 minutes Plan of care reviewed w/ patient, he understands/agrees Subjective Date of service: 06/11/19 Principal diagnosis: Accelerated HTN Interval history: Remained on Cardene drip until this AM when this was stopped and he was able to tolerate his PO BP meds. Denies further N/V, chest pain. No SOB or new complaints. Denies missing HD as outpatient. For HD today. Active Medications Acetaminophen (Tylenol) 650 mg PO Q4H PRN PRN Reason: Pain MILD(1-3)/Fever >100.5/SOARES Amlodipine Besylate (Norvasc) 10 mg PO DAILY [facility] Last Admin: 06/11/19 13:00 Dose: 10 mg Documented by: Calcium Acetate (Phoslo) 1,334 mg PO TIDWM [facility] Last Admin: 06/11/19 12:00 Dose: Not Given Documented by: Clonidine HCl (Catapres) 0.3 mg PO Q12HR [facility] Last Admin: 06/11/19 09:55 Dose: 0.3 mg Documented by: Famotidine (Pepcid) 10 mg PO BID [facility] Hydralazine HCl (Apresoline) 25 mg PO Q8HR [facility] Last Admin: 06/11/19 14:00 Dose: 25 mg Documented by: Hydromorphone HCl (Dilaudid) 0.5 mg IV Q3H PRN PRN Reason: Pain , Severe (7-10) Last Admin: 06/10/19 11:12 Dose: 0.5 mg Documented by: Sodium Chloride (Nacl 0.9%) 100 mls @ 999 mls/hr IV MARI PRN PRN Reason: Hypotension Nicardipine HCl 50 mg/ Sodium (Chloride) 250 mls @ 25 mls/hr IV TITR [facility]; Protocol Last Titration: 06/11/19 10:00 Dose: 5 mg/hr, 25 mls/hr Documented by: Insulin Glargine (Lantus) 20 units SUB-Q QHS [facility] Last Admin: 06/10/19 23:15 Dose: 20 units Documented by: Insulin Human Lispro (Humalog) 0 unit SUB-Q ACHS [facility]; Protocol Last Admin: 06/11/19 11:30 Dose: 6 unit Documented by: Insulin Human Regular (Humulin R) 5 units SUB-Q TIDAC [facility] Last Admin: 06/11/19 11:30 Dose: 5 units Documented by: Labetalol HCl (Normodyne) 20 mg IV Q6H PRN PRN Reason: SBL > 160 Losartan Potassium (Cozaar) 50 mg PO QDAY [facility] Last Admin: 06/11/19 10:09 Dose: 50 mg Documented by: Metoclopramide HCl (Reglan) 5 mg IV [facility] Last Admin: 06/11/19 11:30 Dose: 5 mg Documented by: Nitroglycerin (Nitro-Bid 2%) 0.5 inch TP BIDNTG [facility]; Protocol Last Admin: 06/11/19 14:00 Dose: Not Given Documented by: Ondansetron HCl (Zofran) 4 mg IV Q3H PRN PRN Reason: Nausea And Vomiting Last Admin: 06/10/19 03:53 Dose: 4 mg Documented by: Sodium Chloride (Sodium Chloride Flush Syringe 10 Ml) 10 ml IV BID [facility] Last Admin: 06/11/19 09:04 Dose: 10 ml Documented by: Sodium Chloride (Sodium Chloride Flush Syringe 10 Ml) 10 ml IV PRN PRN PRN Reason: LINE FLUSH Objective Vital Signs - 12hr 06/11/19 06/11/19 06/11/19 04:45 05:01 05:19 Temperature Pulse Rate 86 86 86 Pulse Rate [ From Monitor] Respiratory 12 12 12 Rate Blood Pressure 128/56 114/49 O2 Sat by Pulse 84 83 L 82 L Oximetry 06/11/19 06/11/19 06/11/19 05:30 05:45 05:52 Temperature Pulse Rate 86 88 85 Pulse Rate [ From Monitor] Respiratory 12 12 Rate Blood Pressure 123/49 126/55 126/55 O2 Sat by Pulse 84 90 Oximetry 06/11/19 06/11/19 06/11/19 05:53 05:54 06:00 Temperature Pulse Rate 89 84 89 Pulse Rate [ From Monitor] Respiratory 11 L Rate Blood Pressure 126/55 126/55 129/63 O2 Sat by Pulse 87 Oximetry 06/11/19 06/11/19 06/11/19 06:16 06:30 06:46 Temperature Pulse Rate 84 88 86 Pulse Rate [ From Monitor] Respiratory 12 11 L 14 Rate Blood Pressure 155/71 155/71 158/69 O2 Sat by Pulse 84 86 89 Oximetry 06/11/19 06/11/19 06/11/19 07:00 07:16 07:30 Temperature Pulse Rate 85 84 82 Pulse Rate [ From Monitor] Respiratory 11 L 10 L 10 L Rate Blood Pressure 158/69 124/54 120/53 O2 Sat by Pulse 85 86 85 Oximetry 06/11/19 06/11/19 06/11/19 07:46 08:00 08:16 Temperature 98.5 F Pulse Rate 88 86 84 Pulse Rate [ 85 From Monitor] Respiratory 11 L 12 10 L Rate Blood Pressure 161/78 161/78 182/91 O2 Sat by Pulse 91 92 92 Oximetry 06/11/19 06/11/19 06/11/19 08:30 08:46 09:00 Temperature Pulse Rate 85 83 82 Pulse Rate [ From Monitor] Respiratory 12 11 L 12 Rate Blood Pressure 159/81 164/83 164/83 O2 Sat by Pulse 91 91 94 Oximetry 06/11/19 06/11/19 06/11/19 09:16 09:30 09:46 Temperature Pulse Rate 85 83 86 Pulse Rate [ From Monitor] Respiratory 11 L 14 11 L Rate Blood Pressure 165/79 165/79 146/59 O2 Sat by Pulse 95 92 91 Oximetry 06/11/19 06/11/19 06/11/19 09:55 10:00 10:09 Temperature Pulse Rate 84 84 90 Pulse Rate [ From Monitor] Respiratory 19 Rate Blood Pressure 159/86 146/59 189/93 O2 Sat by Pulse 89 Oximetry 06/11/19 06/11/19 06/11/19 10:16 10:30 10:46 Temperature Pulse Rate 91 H 84 82 Pulse Rate [ From Monitor] Respiratory 16 12 14 Rate Blood Pressure 200/84 200/84 203/73 O2 Sat by Pulse 92 94 93 Oximetry 06/11/19 06/11/19 06/11/19 11:00 11:16 11:30 Temperature Pulse Rate 80 76 77 Pulse Rate [ From Monitor] Respiratory 12 12 11 L Rate Blood Pressure 174/75 171/81 171/81 O2 Sat by Pulse 93 91 89 Oximetry 06/11/19 06/11/19 06/11/19 11:46 12:00 12:16 Temperature 98.5 F Pulse Rate 75 74 76 Pulse Rate [ 81 From Monitor] Respiratory 12 12 13 Rate Blood Pressure 151/61 151/61 139/65 O2 Sat by Pulse 91 88 94 Oximetry 06/11/19 06/11/19 06/11/19 12:30 12:46 13:00 Temperature Pulse Rate 74 75 74 Pulse Rate [ From Monitor] Respiratory 11 L 12 10 L Rate Blood Pressure 139/65 138/66 152/70 O2 Sat by Pulse 91 92 94 Oximetry 06/11/19 06/11/19 06/11/19 13:15 13:30 13:46 Temperature Pulse Rate 80 76 77 Pulse Rate [ From Monitor] Respiratory 20 14 16 Rate Blood Pressure 133/85 133/85 123/75 O2 Sat by Pulse 90 93 93 Oximetry 06/11/19 06/11/19 06/11/19 14:00 14:16 14:30 Temperature Pulse Rate 76 78 74 Pulse Rate [ From Monitor] Respiratory 14 13 12 Rate Blood Pressure 143/74 139/73 133/70 O2 Sat by Pulse 94 94 93 Oximetry 06/11/19 06/11/19 06/11/19 14:45 16:15 16:30 Temperature 97.6 F Pulse Rate 75 75 78 Pulse Rate [ From Monitor] Respiratory 12 13 Rate Blood Pressure 137/74 166/72 167/72 O2 Sat by Pulse 92 Oximetry Constitutional: alert, other (on cardene drip) Eyes: non-icteric ENT: oropharynx moist Neck: supple Effort: normal Ascultation: Bilateral: clear Cardiovascular: regular rate and rhythm (no mrg) Gastrointestinal: normoactive bowel sounds, soft, non-tender, non-distended Integumentary: normal Extremities: no cyanosis, no edema, pink and warm Neurologic: normal mental status, non-focal exam, pupils equal and round Psychiatric: mood appropriate, affect normal CBC and BMP: 06/11/19 04:24 06/11/19 04:24 ABG, PT/INR, D-dimer: PT/INR, D-dimer PT 14.3 Sec. (12.2-14.9) 06/08/19 11:19 INR 1.14 (0.87-1.13) H 06/08/19 11:19 Abnormal lab findings: Abnormal Labs 06/08/19 06/08/19 06/08/19 11:19 11:19 11:19 WBC 14.8 H RBC Hgb 11.3 L Hct 35.2 L MCV RDW 16.5 H Plt Count 130 L Lymph % (Auto) 6.0 L Lymph # 0.9 L Seg Neutrophils % 88.9 H Seg Neuts % (Manual) Lymphocytes % (Manual) Seg Neutrophils # 13.2 H Seg Neutrophils # Man Lymphocytes # (Manual) INR 1.14 H APTT 23.0 L Potassium Chloride 90.9 L Carbon Dioxide 15 L BUN 45 H Creatinine 10.7 H Glucose 230 H POC Glucose Hemoglobin A1c Lactic Acid Calcium 8.3 L D Total Creatine Kinase CK-MB (CK-2) Troponin T 0.316 H* Triglycerides 254 H 06/08/19 06/08/19 06/08/19 11:19 11:19 11:19 WBC RBC Hgb Hct MCV RDW Plt Count Lymph % (Auto) Lymph # Seg Neutrophils % Seg Neuts % (Manual) Lymphocytes % (Manual) Seg Neutrophils # Seg Neutrophils # Man Lymphocytes # (Manual) INR APTT Potassium Chloride Carbon Dioxide BUN Creatinine Glucose POC Glucose Hemoglobin A1c 7.8 H Lactic Acid 4.70 H* Calcium Total Creatine Kinase 281 H CK-MB (CK-2) Troponin T Triglycerides 06/08/19 06/08/19 06/08/19 14:48 15:45 22:06 WBC RBC Hgb Hct MCV RDW Plt Count Lymph % (Auto) Lymph # Seg Neutrophils % Seg Neuts % (Manual) Lymphocytes % (Manual) Seg Neutrophils # Seg Neutrophils # Man Lymphocytes # (Manual) INR APTT Potassium Chloride Carbon Dioxide BUN Creatinine Glucose POC Glucose 244 H Hemoglobin A1c Lactic Acid 4.80 H* 5.10 H* Calcium Total Creatine Kinase CK-MB (CK-2) Troponin T Triglycerides 06/09/19 06/09/19 06/09/19 01:38 02:00 02:00 WBC 19.2 H RBC Hgb 11.1 L Hct 35.0 L MCV 95 H RDW 16.6 H Plt Count 137 L Lymph % (Auto) Lymph # Seg Neutrophils % Seg Neuts % (Manual) 93.0 H Lymphocytes % (Manual) 5.0 L Seg Neutrophils # Seg Neutrophils # Man 17.9 H Lymphocytes # (Manual) 1.0 L INR APTT Potassium Chloride 94.4 L Carbon Dioxide 16 L BUN 30 H Creatinine 7.4 H Glucose 329 H POC Glucose 301 H Hemoglobin A1c Lactic Acid Calcium 8.0 L Total Creatine Kinase CK-MB (CK-2) Troponin T Triglycerides 06/09/19 06/09/19 06/09/19 02:00 08:19 10:14 WBC RBC Hgb Hct MCV RDW Plt Count Lymph % (Auto) Lymph # Seg Neutrophils % Seg Neuts % (Manual) Lymphocytes % (Manual) Seg Neutrophils # Seg Neutrophils # Man Lymphocytes # (Manual) INR APTT Potassium Chloride Carbon Dioxide BUN Creatinine Glucose POC Glucose 414 H Hemoglobin A1c Lactic Acid Calcium Total Creatine Kinase 234 H 216 H CK-MB (CK-2) 8.0 H 8.4 H Troponin T 0.350 H* 0.369 H* Triglycerides 06/09/19 06/09/19 06/09/19 12:10 15:50 21:30 WBC RBC Hgb Hct MCV RDW Plt Count Lymph % (Auto) Lymph # Seg Neutrophils % Seg Neuts % (Manual) Lymphocytes % (Manual) Seg Neutrophils # Seg Neutrophils # Man Lymphocytes # (Manual) INR APTT Potassium Chloride Carbon Dioxide BUN Creatinine Glucose POC Glucose 243 H 234 H Hemoglobin A1c Lactic Acid Calcium Total Creatine Kinase 242 H CK-MB (CK-2) 7.6 H Troponin T 0.376 H* Triglycerides 06/10/19 06/10/19 06/10/19 04:07 04:07 09:13 WBC 16.4 H RBC 3.53 L Hgb 10.8 L Hct 34.1 L MCV 96 H RDW 17.0 H Plt Count 139 L Lymph % (Auto) Lymph # Seg Neutrophils % Seg Neuts % (Manual) Lymphocytes % (Manual) Seg Neutrophils # Seg Neutrophils # Man Lymphocytes # (Manual) INR APTT Potassium Chloride Carbon Dioxide 20 L BUN 44 H Creatinine 10.3 H Glucose 277 H POC Glucose 384 H Hemoglobin A1c Lactic Acid Calcium 7.6 L Total Creatine Kinase CK-MB (CK-2) Troponin T Triglycerides 06/10/19 06/10/19 06/10/19 13:01 16:41 23:07 WBC RBC Hgb Hct MCV RDW Plt Count Lymph % (Auto) Lymph # Seg Neutrophils % Seg Neuts % (Manual) Lymphocytes % (Manual) Seg Neutrophils # Seg Neutrophils # Man Lymphocytes # (Manual) INR APTT Potassium Chloride Carbon Dioxide BUN Creatinine Glucose POC Glucose 306 H 242 H 309 H Hemoglobin A1c Lactic Acid Calcium Total Creatine Kinase CK-MB (CK-2) Troponin T Triglycerides 06/11/19 06/11/19 06/11/19 04:24 04:24 07:50 WBC 15.4 H RBC 3.52 L Hgb 10.7 L Hct 32.9 L MCV RDW 16.6 H Plt Count Lymph % (Auto) Lymph # Seg Neutrophils % Seg Neuts % (Manual) Lymphocytes % (Manual) Seg Neutrophils # Seg Neutrophils # Man 10.6 H Lymphocytes # (Manual) INR APTT Potassium 3.2 L Chloride Carbon Dioxide BUN 46 H Creatinine 11.9 H Glucose 173 H POC Glucose 261 H Hemoglobin A1c Lactic Acid Calcium 7.8 L Total Creatine Kinase CK-MB (CK-2) Troponin T Triglycerides 06/11/19 16:25 WBC RBC Hgb Hct MCV RDW Plt Count Lymph % (Auto) Lymph # Seg Neutrophils % Seg Neuts % (Manual) Lymphocytes % (Manual) Seg Neutrophils # Seg Neutrophils # Man Lymphocytes # (Manual) INR APTT Potassium Chloride Carbon Dioxide BUN Creatinine Glucose POC Glucose 183 H Hemoglobin A1c Lactic Acid Calcium Total Creatine Kinase CK-MB (CK-2) Troponin T Triglycerides Chest x-ray: report reviewed, image reviewed (clear lungs)
[2019-06-11] MEDS: DILAUDID IV PRN (18:16)
[2019-06-11] MEDS: PEPCID PO SCH (22:41)
[2019-06-11] MEDS: LANTUS SUB-Q SCH (22:43)
[2019-06-12] MEDS: APRESOLINE PO SCH ×3 (05:32→22:39)
[2019-06-12] MEDS: NITRO-BID 2% TP SCH ×2 (05:33→15:10)
[2019-06-12 05:53] LABS: Hematocrit 32.2 % (35.5-45.6); Hemoglobin 10.4 gm/dl (11.8-15.2); Mean Corpuscular HGB Conc 32 % (32-34); Mean Corpuscular Volume 94 fl (84-94); Platelet Count 108 K/mm3 (140-440); Red Blood Count 3.41 M/mm3 (3.65-5.03); Red Cell Distribution Width 16.3 % (13.2-15.2)
[2019-06-12 06:12] LABS: Calcium 7.7 mg/dL (8.4-10.2)
[2019-06-12] MEDS: HumuLIN R SUB-Q SCH ×3 (09:29→20:16)
[2019-06-12] MEDS: HumaLOG SUB-Q SCH ×4 (09:30→22:39)
[2019-06-12] MEDS: PHOSLO PO SCH ×4 (09:34→20:17)
[2019-06-12] MEDS: CATAPRES PO SCH ×2 (09:36→22:38)
[2019-06-12] MEDS: COZAAR PO SCH (09:36)
[2019-06-12] MEDS: REGLAN IV SCH ×4 (09:37→22:41)
[2019-06-12] MEDS: PEPCID PO SCH ×2 (09:37→22:40)
--- NOTE | 2019-06-12 09:39 | Progress Note ---
Subjective Principal diagnosis: Accelerated HTN Interval history: Patient was seen today for follow-up on multiple renal related issues Events of this hospitalization were noted Currently on maintenance hemodialysis Tuesday and Tuesday Blood pressure is currently well controlled Transferred out of ICU Vitals intake output medications were reviewed Past medical history: Reviewed Family, social history: Reviewed Allergies: Reviewed Physical examination General: No acute distress Vitals: Reviewed HEENT: Oral mucosa moist no icterus Neck: Supple no thyromegaly nodular mass or JVD Chest: Clear to auscultation anteriorly Heart: Regular rate and rhythm S1-S2 heard no S3-S4 Abdomen: Soft nontender no suprapubic masses no organomegaly Extremity: Dry skin less than 1+ edema Psych: No evidence of any agitation and aggression noted Derm: No petechial rash Assessment and plan: End stage renal disease: Patient will continue with hemodialysis on Tuesday and Tuesday schedule Currently doing much better tolerated hemodialysis treatment fairly well Acidosis currently better Patient does go through periods of diabetic gastroparesis flare and is currently pending gastric pacing Uncontrolled hypertension likely due to nausea vomiting Likely may have mixed variety of hypertension adding losartan 50 mg once a day and follow Blood pressure may be uncontrolled due to diabetic gastroparesis which can r esult in labile hypertension Ejection fraction 60% no ischemia noted in perfusion scan in November 2017 Nutrition: High-protein diet due to dialysis status, please advance diet as tolerated Patient was adequately counseled and educated regarding all the dialysis related issues All renal related issues were discussed with the patient, patient does exhibit good understanding, lab results were also discussed with patient in simple [place] Prognosis: Guarded We'll continue to follow and make recommendation from renal standpoint Objective - Vital Signs Vital signs: Vital Signs - 12hr 06/11/19 06/11/19 06/11/19 21:53 22:00 22:42 Temperature 98.7 F Pulse Rate 87 87 Pulse Rate [ From Monitor] Respiratory 18 Rate Blood Pressure 120/66 120/66 O2 Sat by Pulse 83 L 92 Oximetry 06/11/19 06/12/19 06/12/19 23:55 00:57 01:21 Temperature 98.3 F Pulse Rate 88 88 Pulse Rate [ 88 From Monitor] Respiratory 18 Rate Blood Pressure 108/63 O2 Sat by Pulse 96 96 Oximetry 06/12/19 06/12/19 06/12/19 03:54 05:32 05:33 Temperature 98.7 F Pulse Rate 85 85 85 Pulse Rate [ From Monitor] Respiratory 18 Rate Blood Pressure 113/67 113/67 113/67 O2 Sat by Pulse 89 Oximetry - Lab 06/12/19 05:34 06/12/19 05:34 Most recent lab results Calcium 7.7 mg/dL (8.4-10.2) L 06/12/19 05:34 Magnesium 2.00 mg/dL (1.7-2.3) 06/08/19 11:19 Medications & Allergies - Medications Allergies/Adverse Reactions: Allergies cefazolin [From [facility]] Allergy (Verified 07/21/18 13:02) Vomiting shellfish derived Allergy (Verified 06/08/18 15:09) Anaphylaxis iodine Adverse Reaction (Severe, Verified 06/08/18 15:09) Vomiting IV dye Adverse Reaction (Severe, Uncoded 04/28/18 08:49) Vomiting Home Medications: Home Medications Medication Instructions Recorded Confirmed Last Taken Type Insulin Glargine [Lantus VIAL] 20 units SUB-Q QHS units 04/04/19 06/08/19 06/04/19 Rx 10 units Calcium Acetate [Phoslo] 1,334 mg PO TIDWM 06/05/19 06/08/19 06/04/19 History 667mg Clonidine HCl [Catapres] 0.3 mg PO BID 06/05/19 06/08/19 06/05/19 05:00 History Insulin Regular, Human [Novolin R] 3 - 5 unit SQ TID 06/05/19 06/08/19 06/04/19 18:00 History 3 units amLODIPine [Norvasc] 10 mg PO DAILY 06/08/19 06/08/19 Unknown History Active Medications: Generic Name Dose Route Start Last Admin Trade Name Freq PRN Reason Stop Dose Admin Acetaminophen 650 mg 06/08/19 20:32 Tylenol PO Q4H PRN Pain MILD(1-3)/Fever >100.5/SOARES Amlodipine Besylate 10 mg 06/11/19 13:00 06/11/19 13:00 Norvasc PO 10 mg DAILY SANDRINE Administration Calcium Acetate 1,334 mg 06/09/19 08:00 06/11/19 17:00 Phoslo PO Not Given TIDWM SANDRINE Clonidine HCl 0.3 mg 06/11/19 10:00 06/11/19 22:42 Catapres PO 0.3 mg Q12HR SANDRINE Administration Famotidine 10 mg 06/11/19 22:00 06/11/19 22:41 Pepcid PO 10 mg BID SANDRINE Administration Hydralazine HCl 25 mg 06/10/19 14:00 06/12/19 05:32 Apresoline PO 25 mg Q8HR SANDRINE Administration Hydromorphone HCl 0.5 mg 06/08/19 20:32 06/11/19 18:16 Dilaudid IV 0.5 mg Q3H PRN Administration Pain , Severe (7-10) Sodium Chloride 100 mls @ 999 mls/hr 06/08/19 15:13 Nacl 0.9% IV MARI PRN Hypotension Insulin Glargine 20 units 06/08/19 22:00 06/11/19 22:43 Lantus SUB-Q 20 units QHS SANDRINE Administration Insulin Human Lispro 0 unit 06/08/19 22:00 06/11/19 22:46 Humalog SUB-Q 3 unit ACHS [facility] Administration Protocol Insulin Human Regular 5 units 06/09/19 07:30 06/11/19 16:30 Humulin R SUB-Q 5 units TIDAC [facility] Administration Labetalol HCl 20 mg 06/11/19 13:00 06/11/19 20:47 Normodyne IV 20 mg Q6H PRN Administration SBL > 160 Losartan Potassium 50 mg 06/11/19 10:00 06/11/19 10:09 Cozaar PO 50 mg QDAY SANDRINE Administration Metoclopramide HCl 5 mg 06/10/19 07:30 06/11/19 22:41 Reglan IV 5 mg ACHS SANDRINE Administration Nitroglycerin 0.5 inch 06/09/19 01:45 06/12/19 05:33 Nitro-Bid 2% TP Not Given BIDNTG [facility] Protocol Ondansetron HCl 4 mg 06/08/19 20:32 06/10/19 03:53 Zofran IV 4 mg Q3H PRN Administration Nausea And Vomiting Sodium Chloride 10 ml 06/08/19 22:00 06/11/19 22:46 Sodium Chloride Flush Syringe 10 Ml IV 10 ml BID SANDRINE Administration Sodium Chloride 10 ml 06/08/19 20:32 Sodium Chloride Flush Syringe 10 Ml IV PRN PRN LINE FLUSH
--- NOTE | 2019-06-12 14:34 | Progress Note ---
Assessment and Plan Assessment and plan: Accelerated hypertension BP improved Starting oral medications since vomiting has subsided so hopefully can discontinue Cardene drip and transfer out of ICU. nausea and vomiting On Zofran and Reglan gastroparesis, Improved Continue Reglan ESRD on dialysis Nephrology folllowing Chest pain cardiology following Elevated Troponin likely chronic SIRS Patient continues to have elevated lactic acid levels. However, leukocytosis or signs of infection. Blood cultures are negative 4 days Diabetes mellitus type 2 Fingerstick q ac and hs History Interval history: Patient is 38 yo with hypertension, ESRD on dialysis, presented to the ER with complaints of diffuse abdominal pain, nausea, vomiting, chest wall pain, occasionally vomiting blood, malaise, fatigue, and chills. They worsen with attempting to eat and drink. He is seen and evaluated in the emergency department. He was diagnosed with hypertensive emergency and gastroparesis exacerbation. Patient started on Cardene drip and admitted to ICU. He was put on Zofran and Reglan for gastroparesis and has improved. Cardene drip was weaned off and patient transferred to telemetry. Hospitalist Physical - Constitutional Vitals: Temp Pulse Resp BP Pulse Ox 98.5 F 85 18 116/68 96 06/12/19 08:23 06/12/19 12:00 06/12/19 12:00 06/12/19 08:23 06/12/19 12:00 General appearance: Present: no acute distress, obese - EENT Eyes: Present: PERRL, EOM intact ENT: hearing intact, clear oral mucosa, dentition normal - Neck Neck: Present: supple, normal ROM - Respiratory Respiratory effort: normal Respiratory: bilateral: CTA - Cardiovascular Rhythm: regular Heart Sounds: Present: S1 & S2. Absent: gallop, rub - Extremities Extremities: no ischemia, No edema, Full ROM - Abdominal General gastrointestinal: soft, non-tender, non-distended, normal bowel sounds - Integumentary Integumentary: Present: clear, warm, dry - Neurologic Neurologic: CNII-XII intact, moves all extremities Results - Labs CBC & Chem 7: 06/12/19 05:34 06/12/19 05:34 Labs: Laboratory Last Values WBC 10.3 K/mm3 (4.5-11.0) 06/12/19 05:34 RBC 3.41 M/mm3 (3.65-5.03) L 06/12/19 05:34 Hgb 10.4 gm/dl (11.8-15.2) L 06/12/19 05:34 Hct 32.2 % (35.5-45.6) L 06/12/19 05:34 MCV 94 fl (84-94) 06/12/19 05:34 MCH 31 pg (28-32) 06/12/19 05:34 MCHC 32 % (32-34) 06/12/19 05:34 RDW 16.3 % (13.2-15.2) H 06/12/19 05:34 Plt Count 108 K/mm3 (140-440) L 06/12/19 05:34 Lymph % (Auto) 6.0 % (13.4-35.0) L 06/08/19 11:19 [place] % (Auto) 4.6 % (0.0-7.3) 06/08/19 11:19 Eos % (Auto) 0.0 % (0.0-4.3) 06/08/19 11:19 Baso % (Auto) 0.5 % (0.0-1.8) 06/08/19 11:19 Lymph # 0.9 K/mm3 (1.2-5.4) L 06/08/19 11:19 [place] # 0.7 K/mm3 (0.0-0.8) 06/08/19 11:19 Eos # 0.0 K/mm3 (0.0-0.4) 06/08/19 11:19 Baso # 0.1 K/mm3 (0.0-0.1) 06/08/19 11:19 Add Manual Diff Complete 06/11/19 04:24 Total Counted 100 06/11/19 04:24 Seg Neutrophils % Fountain Operator 06/09/19 02:00 Seg Neuts % (Manual) 69.0 % (40.0-70.0) 06/11/19 04:24 1.0 % 06/11/19 04:24 23.0 % (13.4-35.0) 06/11/19 04:24 Reactive Lymphs % (Man) 1.0 % 06/11/19 04:24 5.0 % (0.0-7.3) 06/11/19 04:24 1.0 % (0.0-4.3) 06/11/19 04:24 0 % (0.0-1.8) 06/11/19 04:24 0 % 06/11/19 04:24 0 % 06/11/19 04:24 0 % 06/11/19 04:24 0 % 06/11/19 04:24 Nucleated RBC % Not Reportable 06/11/19 04:24 Seg Neutrophils # 13.2 K/mm3 (1.8-7.7) H 06/08/19 11:19 Seg Neutrophils # Man 10.6 K/mm3 (1.8-7.7) H 06/11/19 04:24 Band Neutrophils # 0.2 K/mm3 06/11/19 04:24 3.5 K/mm3 (1.2-5.4) 06/11/19 04:24 Abs React Lymphs (Man) 0.2 K/mm3 06/11/19 04:24 0.8 K/mm3 (0.0-0.8) 06/11/19 04:24 0.2 K/mm3 (0.0-0.4) 06/11/19 04:24 0.0 K/mm3 (0.0-0.1) 06/11/19 04:24 0.0 K/mm3 06/11/19 04:24 0.0 K/mm3 06/11/19 04:24 0.0 K/mm3 06/11/19 04:24 Blast Cells # 0.0 K/mm3 06/11/19 04:24 WBC Morphology Not Reportable 06/11/19 04:24 Hypersegmented Neuts Not Reportable 06/11/19 04:24 Hyposegmented Neuts Not Reportable 06/11/19 04:24 Hypogranular Neuts Not Reportable 06/11/19 04:24 Not Reportable 06/11/19 04:24 Not Reportable 06/11/19 04:24 Few 06/11/19 04:24 Not Reportable 06/11/19 04:24 Not Reportable 06/11/19 04:24 Not Reportable 06/11/19 04:24 Consistent w auto 06/11/19 04:24 Not Reportable 06/11/19 04:24 Plt Clumps, EDTA Not Reportable 06/11/19 04:24 Not Reportable 06/11/19 04:24 Not Reportable 06/11/19 04:24 Not Reportable 06/11/19 04:24 Plt Morphology Comment Not Reportable 06/11/19 04:24 RBC Morphology Not Reportable 06/11/19 04:24 Dimorphic RBCs Not Reportable 06/11/19 04:24 Not Reportable 06/11/19 04:24 Not Reportable 06/11/19 04:24 Not Reportable 06/11/19 04:24 Not Reportable 06/11/19 04:24 Not Reportable 06/11/19 04:24 Not Reportable 06/11/19 04:24 Not Reportable 06/11/19 04:24 Not Reportable 06/11/19 04:24 Not Reportable 06/11/19 04:24 Not Reportable 06/11/19 04:24 Not Reportable 06/11/19 04:24 Not Reportable 06/11/19 04:24 Not Reportable 06/11/19 04:24 Not Reportable 06/11/19 04:24 Not Reportable 06/11/19 04:24 Not Reportable 06/11/19 04:24 Not Reportable 06/11/19 04:24 Not Reportable 06/11/19 04:24 Not Reportable 06/11/19 04:24 Acanthocytes (Spur) Not Reportable 06/11/19 04:24 Rouleaux Not Reportable 06/11/19 04:24 Not Reportable 06/11/19 04:24 Not Reportable 06/11/19 04:24 Not Reportable 06/11/19 04:24 Not Reportable 06/11/19 04:24 Hem Pathologist Commnt No 06/11/19 04:24 PT 14.3 Sec. (12.2-14.9) 06/08/19 11:19 INR 1.14 (0.87-1.13) H 06/08/19 11:19 APTT 23.0 Sec. (24.2-36.6) L 06/08/19 11:19 Sodium 136 mmol/L (137-145) L 06/12/19 05:34 Potassium 3.3 mmol/L (3.6-5.0) L 06/12/19 05:34 Chloride 91.5 mmol/L (98-107) L 06/12/19 05:34 Carbon Dioxide 3.34 mmol/L (22-30) L* D 06/12/19 05:34 44 mmol/L 06/12/19 05:34 BUN 24 mg/dL (9-20) H 06/12/19 05:34 7.8 mg/dL (0.8-1.5) H 06/12/19 05:34 Estimated GFR 9 ml/min 06/12/19 05:34 3 % 06/12/19 05:34 Glucose 380 mg/dL (75-100) H 06/12/19 05:34 POC Glucose 188 (70-105) H 06/12/19 13:02 7.8 % (4-6) H 06/08/19 11:19 Lactic Acid 3.70 mmol/L (0.7-2.0) H* 06/12/19 10:56 Calcium 7.7 mg/dL (8.4-10.2) L 06/12/19 05:34 Magnesium 2.00 mg/dL (1.7-2.3) 06/08/19 11:19 0.50 mg/dL (0.1-1.2) 06/09/19 02:00 AST 17 units/L (5-40) 06/09/19 02:00 ALT 14 units/L (7-56) 06/09/19 02:00 84 units/L (35-129) 06/09/19 02:00 242 units/L (55-170) H 06/09/19 15:50 CK-MB (CK-2) 7.6 ng/mL (0.0-4.0) H 06/09/19 15:50 CK-MB (CK-2) Rel Index 3.1 (0-4) 06/09/19 15:50 0.376 ng/mL (0.00-0.029) H* 06/09/19 15:50 7.5 g/dL (6.3-8.2) 06/09/19 02:00 4.4 g/dL (3.9-5) 06/09/19 02:00 1.4 % 06/09/19 02:00 Triglycerides 254 mg/dL (2-149) H 06/08/19 11:19 Cholesterol 165 mg/dL (50-199) 06/08/19 11:19 100 mg/dL (50-130) 06/08/19 11:19 40 mg/dL (40-59) 06/08/19 11:19 4.12 % 06/08/19 11:19 Hepatitis A IgM Ab Non-reactive (NonReactive) 06/08/19 11:19 Hep Bs Antigen Non-reactive (Negative) 06/08/19 11:19 Hep B Core IgM Ab Non-reactive (NonReactive) 06/08/19 11:19 Non-reactive (NonReactive) 06/08/19 11:19 Active Medications - Current Medications Current Medications: Generic Name Dose Route Start Last Admin Trade Name Freq PRN Reason Stop Dose Admin Acetaminophen 650 mg 06/08/19 20:32 Tylenol PO Q4H PRN Pain MILD(1-3)/Fever >100.5/SOARES Amlodipine Besylate 10 mg 06/11/19 13:00 06/11/19 13:00 Norvasc PO 10 mg DAILY SANDRINE Administration Calcium Acetate 1,334 mg 06/09/19 08:00 06/12/19 09:34 Phoslo PO 1,334 mg TIDWM SANDRINE Administration Clonidine HCl 0.3 mg 06/11/19 10:00 06/12/19 09:36 Catapres PO 0.3 mg Q12HR SANDRINE Administration Famotidine 10 mg 06/11/19 22:00 06/12/19 09:37 Pepcid PO 10 mg BID SANDRINE Administration Hydralazine HCl 25 mg 06/10/19 14:00 06/12/19 05:32 Apresoline PO 25 mg Q8HR SANDRINE Administration Hydromorphone HCl 0.5 mg 06/08/19 20:32 06/11/19 18:16 Dilaudid IV 0.5 mg Q3H PRN Administration Pain , Severe (7-10) Sodium Chloride 100 mls @ 999 mls/hr 06/08/19 15:13 Nacl 0.9% IV MARI PRN Hypotension Insulin Glargine 20 units 06/08/19 22:00 06/11/19 22:43 Lantus SUB-Q 20 units QHS SANDRINE Administration Insulin Human Lispro 0 unit 06/08/19 22:00 06/12/19 09:30 Humalog SUB-Q 6 unit ACHS SANDRINE Administration Protocol Insulin Human Regular 5 units 06/09/19 07:30 06/12/19 09:29 Humulin R SUB-Q 5 units TIDAC SANDRINE Administration Labetalol HCl 20 mg 06/11/19 13:00 06/11/19 20:47 Normodyne IV 20 mg Q6H PRN Administration SBL > 160 Losartan Potassium 50 mg 06/11/19 10:00 06/12/19 09:36 Cozaar PO 50 mg QDAY SANDRINE Administration Metoclopramide HCl 5 mg 06/10/19 07:30 06/12/19 09:37 Reglan IV 5 mg ACHS SANDRINE Administration Nitroglycerin 0.5 inch 06/09/19 01:45 06/12/19 05:33 Nitro-Bid 2% TP Not Given BIDNTG [facility] Protocol Ondansetron HCl 4 mg 06/08/19 20:32 06/10/19 03:53 Zofran IV 4 mg Q3H PRN Administration Nausea And Vomiting Sodium Chloride 10 ml 06/08/19 22:00 06/11/19 22:46 Sodium Chloride Flush Syringe 10 Ml IV 10 ml BID SANDRINE Administration Sodium Chloride 10 ml 06/08/19 20:32 Sodium Chloride Flush Syringe 10 Ml IV PRN PRN LINE FLUSH
--- NOTE | 2019-06-12 15:12 | Progress Note ---
Assessment and Plan Imp: 1. Gastroparesis 2. Intractable N/V 3. Accelerated HTN 4. ESRD 5. Obesity 6. Anemia of chronic disease 7. Lactic acidosis 8. Likely BHUMIKA Rec: 1. Renal titrating BP regimen 2. HD per renal 3. Cont. gastroparesis therapy 4. Patient with witnessed apnea/hypoxia while asleep in ICU, probably has BHUMIKA; recommended PSG to him and gave him our office number; do not drive/operate machinery while sleepy 5. Weight loss 6. Okay to go home [facility] with follow-up as per above; we will sign off but call with questions Plan of care reviewed w/ patient, he understands/agrees Subjective Date of service: 06/12/19 Principal diagnosis: Accelerated HTN Interval history: No complaints. On 2L NC. Active Medications Acetaminophen (Tylenol) 650 mg PO Q4H PRN PRN Reason: Pain MILD(1-3)/Fever >100.5/SOARES Amlodipine Besylate (Norvasc) 10 mg PO DAILY [facility] Last Admin: 06/11/19 13:00 Dose: 10 mg Documented by: Calcium Acetate (Phoslo) 1,334 mg PO TIDWM [facility] Last Admin: 06/12/19 09:34 Dose: 1,334 mg Documented by: Clonidine HCl (Catapres) 0.3 mg PO Q12HR [facility] Last Admin: 06/12/19 09:36 Dose: 0.3 mg Documented by: Famotidine (Pepcid) 10 mg PO BID [facility] Last Admin: 06/12/19 09:37 Dose: 10 mg Documented by: Hydralazine HCl (Apresoline) 25 mg PO Q8HR [facility] Last Admin: 06/12/19 05:32 Dose: 25 mg Documented by: Hydromorphone HCl (Dilaudid) 0.5 mg IV Q3H PRN PRN Reason: Pain , Severe (7-10) Last Admin: 06/11/19 18:16 Dose: 0.5 mg Documented by: Sodium Chloride (Nacl 0.9%) 100 mls @ 999 mls/hr IV MARI PRN PRN Reason: Hypotension Insulin Glargine (Lantus) 20 units SUB-Q QHS [facility] Last Admin: 06/11/19 22:43 Dose: 20 units Documented by: Insulin Human Lispro (Humalog) 0 unit SUB-Q [facility]; Protocol Last Admin: 06/12/19 09:30 Dose: 6 unit Documented by: Insulin Human Regular (Humulin R) 5 units SUB-Q TIDAC [facility] Last Admin: 06/12/19 09:29 Dose: 5 units Documented by: Labetalol HCl (Normodyne) 20 mg IV Q6H PRN PRN Reason: SBL > 160 Last Admin: 06/11/19 20:47 Dose: 20 mg Documented by: Losartan Potassium (Cozaar) 50 mg PO QDAY [facility] Last Admin: 06/12/19 09:36 Dose: 50 mg Documented by: Metoclopramide HCl (Reglan) 5 mg IV [facility] Last Admin: 06/12/19 09:37 Dose: 5 mg Documented by: Nitroglycerin (Nitro-Bid 2%) 0.5 inch TP BIDNTG [facility]; Protocol Last Admin: 06/12/19 05:33 Dose: Not Given Documented by: Ondansetron HCl (Zofran) 4 mg IV Q3H PRN PRN Reason: Nausea And Vomiting Last Admin: 06/10/19 03:53 Dose: 4 mg Documented by: Sodium Chloride (Sodium Chloride Flush Syringe 10 Ml) 10 ml IV BID [facility] Last Admin: 06/11/19 22:46 Dose: 10 ml Documented by: Sodium Chloride (Sodium Chloride Flush Syringe 10 Ml) 10 ml IV PRN PRN PRN Reason: LINE FLUSH Objective Vital Signs - 12hr 06/12/19 06/12/19 06/12/19 03:54 05:32 05:33 Temperature 98.7 F Pulse Rate 85 85 85 Pulse Rate [ Right Popliteal ] Respiratory 18 Rate Blood Pressure 113/67 113/67 113/67 O2 Sat by Pulse 89 Oximetry 06/12/19 06/12/19 06/12/19 08:23 09:36 12:00 Temperature 98.5 F Pulse Rate 82 90 85 Pulse Rate [ 85 Right Popliteal ] Respiratory 18 18 Rate Blood Pressure 116/68 O2 Sat by Pulse 96 96 Oximetry 06/12/19 12:53 Temperature 98.9 F Pulse Rate 94 H Pulse Rate [ Right Popliteal ] Respiratory 18 Rate Blood Pressure 136/76 O2 Sat by Pulse 97 Oximetry Constitutional: no acute distress, alert Eyes: non-icteric ENT: oropharynx moist Neck: supple Effort: normal Ascultation: Bilateral: clear Cardiovascular: regular rate and rhythm (no mrg) Gastrointestinal: normoactive bowel sounds, soft, non-tender, non-distended Integumentary: normal Extremities: no cyanosis, no edema, pink and warm Neurologic: normal mental status, non-focal exam, pupils equal and round Psychiatric: mood appropriate, affect normal CBC and BMP: 06/12/19 05:34 06/12/19 05:34 ABG, PT/INR, D-dimer: PT/INR, D-dimer PT 14.3 Sec. (12.2-14.9) 06/08/19 11:19 INR 1.14 (0.87-1.13) H 06/08/19 11:19 Abnormal lab findings: Abnormal Labs 06/08/19 06/08/19 06/08/19 11:19 11:19 11:19 WBC 14.8 H RBC Hgb 11.3 L Hct 35.2 L MCV RDW 16.5 H Plt Count 130 L Lymph % (Auto) 6.0 L Lymph # 0.9 L Seg Neutrophils % 88.9 H Seg Neuts % (Manual) Lymphocytes % (Manual) Seg Neutrophils # 13.2 H Seg Neutrophils # Man Lymphocytes # (Manual) INR 1.14 H APTT 23.0 L Sodium Potassium Chloride 90.9 L Carbon Dioxide 15 L BUN 45 H Creatinine 10.7 H Glucose 230 H POC Glucose Hemoglobin A1c Lactic Acid Calcium 8.3 L D Total Creatine Kinase CK-MB (CK-2) Troponin T 0.316 H* Triglycerides 254 H 06/08/19 06/08/19 06/08/19 11:19 11:19 11:19 WBC RBC Hgb Hct MCV RDW Plt Count Lymph % (Auto) Lymph # Seg Neutrophils % Seg Neuts % (Manual) Lymphocytes % (Manual) Seg Neutrophils # Seg Neutrophils # Man Lymphocytes # (Manual) INR APTT Sodium Potassium Chloride Carbon Dioxide BUN Creatinine Glucose POC Glucose Hemoglobin A1c 7.8 H Lactic Acid 4.70 H* Calcium Total Creatine Kinase 281 H CK-MB (CK-2) Troponin T Triglycerides 06/08/19 06/08/19 06/08/19 14:48 15:45 22:06 WBC RBC Hgb Hct MCV RDW Plt Count Lymph % (Auto) Lymph # Seg Neutrophils % Seg Neuts % (Manual) Lymphocytes % (Manual) Seg Neutrophils # Seg Neutrophils # Man Lymphocytes # (Manual) INR APTT Sodium Potassium Chloride Carbon Dioxide BUN Creatinine Glucose POC Glucose 244 H Hemoglobin A1c Lactic Acid 4.80 H* 5.10 H* Calcium Total Creatine Kinase CK-MB (CK-2) Troponin T Triglycerides 06/09/19 06/09/19 06/09/19 01:38 02:00 02:00 WBC 19.2 H RBC Hgb 11.1 L Hct 35.0 L MCV 95 H RDW 16.6 H Plt Count 137 L Lymph % (Auto) Lymph # Seg Neutrophils % Seg Neuts % (Manual) 93.0 H Lymphocytes % (Manual) 5.0 L Seg Neutrophils # Seg Neutrophils # Man 17.9 H Lymphocytes # (Manual) 1.0 L INR APTT Sodium Potassium Chloride 94.4 L Carbon Dioxide 16 L BUN 30 H Creatinine 7.4 H Glucose 329 H POC Glucose 301 H Hemoglobin A1c Lactic Acid Calcium 8.0 L Total Creatine Kinase CK-MB (CK-2) Troponin T Triglycerides 06/09/19 06/09/19 06/09/19 02:00 08:19 10:14 WBC RBC Hgb Hct MCV RDW Plt Count Lymph % (Auto) Lymph # Seg Neutrophils % Seg Neuts % (Manual) Lymphocytes % (Manual) Seg Neutrophils # Seg Neutrophils # Man Lymphocytes # (Manual) INR APTT Sodium Potassium Chloride Carbon Dioxide BUN Creatinine Glucose POC Glucose 414 H Hemoglobin A1c Lactic Acid Calcium Total Creatine Kinase 234 H 216 H CK-MB (CK-2) 8.0 H 8.4 H Troponin T 0.350 H* 0.369 H* Triglycerides 06/09/19 06/09/19 06/09/19 12:10 15:50 21:30 WBC RBC Hgb Hct MCV RDW Plt Count Lymph % (Auto) Lymph # Seg Neutrophils % Seg Neuts % (Manual) Lymphocytes % (Manual) Seg Neutrophils # Seg Neutrophils # Man Lymphocytes # (Manual) INR APTT Sodium Potassium Chloride Carbon Dioxide BUN Creatinine Glucose POC Glucose 243 H 234 H Hemoglobin A1c Lactic Acid Calcium Total Creatine Kinase 242 H CK-MB (CK-2) 7.6 H Troponin T 0.376 H* Triglycerides 06/10/19 06/10/19 06/10/19 04:07 04:07 09:13 WBC 16.4 H RBC 3.53 L Hgb 10.8 L Hct 34.1 L MCV 96 H RDW 17.0 H Plt Count 139 L Lymph % (Auto) Lymph # Seg Neutrophils % Seg Neuts % (Manual) Lymphocytes % (Manual) Seg Neutrophils # Seg Neutrophils # Man Lymphocytes # (Manual) INR APTT Sodium Potassium Chloride Carbon Dioxide 20 L BUN 44 H Creatinine 10.3 H Glucose 277 H POC Glucose 384 H Hemoglobin A1c Lactic Acid Calcium 7.6 L Total Creatine Kinase CK-MB (CK-2) Troponin T Triglycerides 06/10/19 06/10/19 06/10/19 13:01 16:41 23:07 WBC RBC Hgb Hct MCV RDW Plt Count Lymph % (Auto) Lymph # Seg Neutrophils % Seg Neuts % (Manual) Lymphocytes % (Manual) Seg Neutrophils # Seg Neutrophils # Man Lymphocytes # (Manual) INR APTT Sodium Potassium Chloride Carbon Dioxide BUN Creatinine Glucose POC Glucose 306 H 242 H 309 H Hemoglobin A1c Lactic Acid Calcium Total Creatine Kinase CK-MB (CK-2) Troponin T Triglycerides 06/11/19 06/11/19 06/11/19 04:24 04:24 07:50 WBC 15.4 H RBC 3.52 L Hgb 10.7 L Hct 32.9 L MCV RDW 16.6 H Plt Count Lymph % (Auto) Lymph # Seg Neutrophils % Seg Neuts % (Manual) Lymphocytes % (Manual) Seg Neutrophils # Seg Neutrophils # Man 10.6 H Lymphocytes # (Manual) INR APTT Sodium Potassium 3.2 L Chloride Carbon Dioxide BUN 46 H Creatinine 11.9 H Glucose 173 H POC Glucose 261 H Hemoglobin A1c Lactic Acid Calcium 7.8 L Total Creatine Kinase CK-MB (CK-2) Troponin T Triglycerides 06/11/19 06/11/19 06/11/19 11:36 16:25 22:52 WBC RBC Hgb Hct MCV RDW Plt Count Lymph % (Auto) Lymph # Seg Neutrophils % Seg Neuts % (Manual) Lymphocytes % (Manual) Seg Neutrophils # Seg Neutrophils # Man Lymphocytes # (Manual) INR APTT Sodium Potassium Chloride Carbon Dioxide BUN Creatinine Glucose POC Glucose 330 H 183 H 286 H Hemoglobin A1c Lactic Acid Calcium Total Creatine Kinase CK-MB (CK-2) Troponin T Triglycerides 06/12/19 06/12/19 06/12/19 05:34 05:34 05:34 WBC RBC 3.41 L Hgb 10.4 L Hct 32.2 L MCV RDW 16.3 H Plt Count 108 L Lymph % (Auto) Lymph # Seg Neutrophils % Seg Neuts % (Manual) Lymphocytes % (Manual) Seg Neutrophils # Seg Neutrophils # Man Lymphocytes # (Manual) INR APTT Sodium 136 L Potassium 3.3 L Chloride 91.5 L Carbon Dioxide 3.34 L* D BUN 24 H Creatinine 7.8 H Glucose 380 H POC Glucose Hemoglobin A1c Lactic Acid 3.40 H* Calcium 7.7 L Total Creatine Kinase CK-MB (CK-2) Troponin T Triglycerides 06/12/19 06/12/19 06/12/19 07:18 08:32 10:56 WBC RBC Hgb Hct MCV RDW Plt Count Lymph % (Auto) Lymph # Seg Neutrophils % Seg Neuts % (Manual) Lymphocytes % (Manual) Seg Neutrophils # Seg Neutrophils # Man Lymphocytes # (Manual) INR APTT Sodium Potassium Chloride Carbon Dioxide BUN Creatinine Glucose POC Glucose 370 H Hemoglobin A1c Lactic Acid 3.20 H* 3.70 H* Calcium Total Creatine Kinase CK-MB (CK-2) Troponin T Triglycerides 06/12/19 06/12/19 13:02 13:28 WBC RBC Hgb Hct MCV RDW Plt Count Lymph % (Auto) Lymph # Seg Neutrophils % Seg Neuts % (Manual) Lymphocytes % (Manual) Seg Neutrophils # Seg Neutrophils # Man Lymphocytes # (Manual) INR APTT Sodium Potassium Chloride Carbon Dioxide BUN Creatinine Glucose POC Glucose 188 H Hemoglobin A1c Lactic Acid 2.70 H* Calcium Total Creatine Kinase CK-MB (CK-2) Troponin T Triglycerides Chest x-ray: report reviewed, image reviewed
[2019-06-12] MEDS: SODIUM CHLORIDE FLUSH SYRINGE 10 ML IV SCH ×2 (15:15→22:41)
[2019-06-12] MEDS: NORVASC PO SCH (15:47)
[2019-06-12] MEDS: LANTUS SUB-Q SCH (22:40)
[2019-06-13] MEDS: NITRO-BID 2% TP SCH ×2 (05:45→15:48)
[2019-06-13] MEDS: APRESOLINE PO SCH ×2 (05:56→15:46)
[2019-06-13 06:24] LABS: Calcium 7.5 mg/dL (8.4-10.2)
[2019-06-13 09:52] LABS: Hematocrit 33.8 % (35.5-45.6); Hemoglobin 10.8 gm/dl (11.8-15.2); Mean Corpuscular HGB Conc 32 % (32-34); Mean Corpuscular Volume 96 fl (84-94); Platelet Count 100 K/mm3 (140-440); Red Blood Count 3.51 M/mm3 (3.65-5.03); Red Cell Distribution Width 16.3 % (13.2-15.2)
[2019-06-13 09:54] LABS: Basophils # (Auto) 0.1 K/mm3 (0.0-0.1); Basophils % (Auto) 0.5 % (0.0-1.8); Eosinophils # (Auto) 0.3 K/mm3 (0.0-0.4); Lymphocytes # (Auto) 2.1 K/mm3 (1.2-5.4); Monocytes % (Auto) 9.4 % (0.0-7.3)
--- NOTE | 2019-06-13 10:05 | Discharge Summary ---
Providers - Providers Date of Admission: 06/09/19 01:55 Date of discharge: 06/13/19 Attending physician: ANA CORDERO 06/08/19 10:40 Consult to Physician [CONS] Urgent Comment: Consulting Provider: CLARK KAN Physician Instructions: Reason For Exam: esrd 06/09/19 01:48 Consult to Physician [CONS] Routine Comment: Consulting Provider: ROSY ADAMS Physician Instructions: Reason For Exam: icu admission htn emergency requiring cardene gtt [facility] Reason for admission: n/v, htn urgency Condition: Stable Hospital course: This is a 38-year-old male with past medical history of ESRD, anemia of chronic disease, diabetes mellitus type 2, gastroparesis and hypertension who presented through the emergency department with diagnosis of gastroparesis exacerbation and accelerated hypertension. Patient normally takes clonidine and Norvasc at home but was unable to keep medications down due to gastroparesis exacerbation. Patient had intractable nausea and vomiting that was treated with supportive careIV fluid hydration, antirheumatic/Reglan and Zofran. The patient received IV antihypertensive medications to maintain blood pressure initially. The patient's blood pressure eventually stabilized once the gastroparesis improved. Once patient was taking by mouth, blood pressure medications were given and patient was transferred to the floor. Patient also suffered chest pain and seen by cardiology and felt to be noncardiac in nature. Elevated troponins were felt to be secondary to renal failure. Patient should have outpatient follow-up with cardiology for possible ischemic workup. Of note, patient also was noted to have witnessed apnea/hypoxia while asleep in ICU. Therefore, patient should have follow-up with pulmonary for possible sleep study. Dedicated discharge time 35 minutes. Disposition: DC- TO HOME OR SELFCARE Time spent for discharge: 35 - Discharge Diagnoses (1) Gastroparesis Status: Acute (2) Hypertensive urgency Status: Acute (3) IDDM (insulin dependent diabetes mellitus) Status: Acute (4) Diabetes mellitus, insulin dependent (IDDM), uncontrolled Status: Chronic (5) ESRD (end stage renal disease) on dialysis Status: Chronic (6) Accelerated hypertension Status: Acute Core Measure Documentation - Palliative Care Palliative Care/ Comfort Measures: Not Applicable - Core Measures Any of the following diagnoses?: none Exam - Constitutional Vitals: Temp Pulse Resp BP Pulse Ox 98.2 F 84 18 123/77 94 06/13/19 07:42 06/13/19 07:42 06/13/19 07:42 06/13/19 07:42 06/13/19 07:42 General appearance: Present: no acute distress, well-nourished - EENT Eyes: Present: PERRL ENT: hearing intact, clear oral mucosa - Neck Neck: Present: supple, normal ROM - Respiratory Respiratory effort: normal Respiratory: bilateral: CTA - Cardiovascular Heart Sounds: Present: S1 & S2. Absent: rub, click - Extremities Extremities: pulses symmetrical, No edema Peripheral Pulses: within normal limits - Abdominal General gastrointestinal: Present: soft, non-tender, non-distended, normal bowel sounds Male genitourinary: Present: normal - Integumentary Integumentary: Present: clear, warm, dry - Musculoskeletal Musculoskeletal: gait normal, strength equal bilaterally - Psychiatric Psychiatric: appropriate mood/affect, intact judgment & insight - Neurologic Neurologic: CNII-XII intact, moves all extremities Plan Activity: advance as tolerated Weight Bearing Status: Weight Bear as Tolerated Diet: diabetic Follow up with: DANE GONZALEZ MD [Primary Care Provider] - 3-5 Days MARIAM WHITTINGTON MD [Staff Physician] - 7 Days SUE SIMON MD [Staff Physician] - 7 Days Prescriptions: hydrALAZINE [Apresoline TAB] 25 mg PO Q8HR #30 tablet Clonidine HCl [Catapres] 0.3 mg PO BID #60 tablet Losartan [Cozaar] 50 mg PO QDAY #30 tablet Insulin Glargine [Lantus VIAL] 20 units SUB-Q QHS 30 Days units amLODIPine [Norvasc] 10 mg PO DAILY #30 tablet Calcium Acetate [Phoslo] 1,334 mg PO TIDWM #30 capsule
[2019-06-13] MEDS: CATAPRES PO SCH (10:40)
[2019-06-13] MEDS: NORVASC PO SCH (10:41)
[2019-06-13] MEDS: COZAAR PO SCH (10:41)
[2019-06-13] MEDS ORDERED: NACL 0.9 (PRIMING MACHINE ONLY DIALYSIS) MC ONE (12:07)
--- NOTE | 2019-06-13 13:41 | Progress Note ---
Subjective Principal diagnosis: Accelerated HTN Objective - Vital Signs Vital signs: Vital Signs - 12hr 06/13/19 06/13/19 06/13/19 03:18 04:00 05:45 Temperature 98.3 F Pulse Rate 78 78 Respiratory 18 Rate Blood Pressure 106/64 106/64 O2 Sat by Pulse 93 Oximetry 06/13/19 06/13/19 06/13/19 05:56 07:42 08:00 Temperature 98.2 F Pulse Rate 78 84 73 Respiratory 18 Rate Blood Pressure 110/58 123/77 O2 Sat by Pulse 94 Oximetry 06/13/19 06/13/19 06/13/19 10:30 10:45 11:00 Temperature 98.0 F Pulse Rate 90 73 74 Respiratory 16 Rate Blood Pressure 127/69 126/62 120/76 O2 Sat by Pulse Oximetry 06/13/19 06/13/19 06/13/19 11:15 11:45 12:00 Temperature Pulse Rate 76 75 78 Respiratory Rate Blood Pressure 112/56 129/72 125/68 O2 Sat by Pulse Oximetry 06/13/19 06/13/19 12:15 12:30 Temperature Pulse Rate 74 73 Respiratory Rate Blood Pressure 127/57 133/74 O2 Sat by Pulse Oximetry - Lab 06/13/19 05:33 06/13/19 05:33 Most recent lab results Calcium 7.5 mg/dL (8.4-10.2) L 06/13/19 05:33 Magnesium 2.00 mg/dL (1.7-2.3) 06/08/19 11:19 Medications & Allergies - Medications Allergies/Adverse Reactions: Allergies cefazolin [From Anc] Allergy (Verified 07/21/18 13:02) Vomiting shellfish derived Allergy (Verified 06/08/18 15:09) Anaphylaxis iodine Adverse Reaction (Severe, Verified 06/08/18 15:09) Vomiting IV dye Adverse Reaction (Severe, Uncoded 04/28/18 08:49) Vomiting Home Medications: Home Medications Medication Instructions Recorded Confirmed Last Taken Type Insulin Regular, Human [Novolin R] 3 - 5 unit SQ TID 06/05/19 06/08/19 06/04/19 18:00 History 3 units Calcium Acetate [Phoslo] 1,334 mg PO TIDWM capsule 06/13/19 Unknown Rx Calcium Acetate [Phoslo] 1,334 mg PO TIDWM #30 capsule 06/13/19 Unknown Rx Clonidine HCl [Catapres] 0.3 mg PO BID #60 tablet 06/13/19 Unknown Rx Insulin Glargine [Lantus VIAL] 20 units SUB-Q QHS 30 Days units 06/13/19 Unknown Rx Losartan [Cozaar] 50 mg PO QDAY #30 tablet 06/13/19 Unknown Rx amLODIPine [Norvasc] 10 mg PO DAILY tablet 06/13/19 Unknown Rx amLODIPine [Norvasc] 10 mg PO DAILY #30 tablet 06/13/19 Unknown Rx cloNIDine [Catapres] 0.3 mg PO Q12HR tablet 06/13/19 Unknown Rx hydrALAZINE [Apresoline TAB] 25 mg PO Q8HR #30 tablet 06/13/19 Unknown Rx Active Medications: Generic Name Dose Route Start Last Admin Trade Name Freq PRN Reason Stop Dose Admin Acetaminophen 650 mg 06/08/19 20:32 06/13/19 06:57 Tylenol PO 650 mg Q4H PRN Administration Pain MILD(1-3)/Fever >100.5/SOARES Amlodipine Besylate 10 mg 06/11/19 13:00 06/13/19 10:41 Norvasc PO Not Given DAILY [facility] Calcium Acetate 1,334 mg 06/09/19 08:00 06/12/19 20:17 Phoslo PO 1,334 mg TIDWM [facility] Administration Clonidine HCl 0.3 mg 06/11/19 10:00 06/13/19 10:40 Catapres PO Not Given Q12HR [facility] Famotidine 10 mg 06/11/19 22:00 06/12/19 22:40 Pepcid PO 10 mg BID [facility] Administration Hydralazine HCl 25 mg 06/10/19 14:00 06/13/19 05:56 Apresoline PO 25 mg Q8HR [facility] Administration Hydromorphone HCl 0.5 mg 06/08/19 20:32 06/11/19 18:16 Dilaudid IV 0.5 mg Q3H PRN Administration Pain , Severe (7-10) Sodium Chloride 100 mls @ 999 mls/hr 06/08/19 15:13 Nacl 0.9% IV MARI PRN Hypotension Insulin Glargine 20 units 06/08/19 22:00 06/12/19 22:40 Lantus SUB-Q 20 units QHS [facility] Administration Insulin Human Lispro 0 unit 06/08/19 22:00 06/12/19 22:39 Humalog SUB-Q 2 unit ACHS [facility] Administration Protocol Insulin Human Regular 5 units 06/09/19 07:30 06/12/19 20:16 Humulin R SUB-Q 5 units TIDAC [facility] Administration Labetalol HCl 20 mg 06/11/19 13:00 06/11/19 20:47 Normodyne IV 20 mg Q6H PRN Administration SBL > 160 Losartan Potassium 50 mg 06/11/19 10:00 06/13/19 10:41 Cozaar PO Not Given QDAY [facility] Metoclopramide HCl 5 mg 06/10/19 07:30 06/12/19 22:41 Reglan IV Not Given [facility] Nitroglycerin 0.5 inch 06/09/19 01:45 06/13/19 05:45 Nitro-Bid 2% TP Not Given BIDNTG [facility] Protocol Ondansetron HCl 4 mg 06/08/19 20:32 06/10/19 03:53 Zofran IV 4 mg Q3H PRN Administration Nausea And Vomiting Sodium Chloride 10 ml 06/08/19 22:00 06/12/19 22:41 Sodium Chloride Flush Syringe 10 Ml IV 10 ml BID [facility] Administration Sodium Chloride 10 ml 06/08/19 20:32 Sodium Chloride Flush Syringe 10 Ml IV PRN PRN LINE FLUSH
[2019-06-13] MEDS: HumaLOG SUB-Q SCH ×2 (15:46→15:50)
[2019-06-13] MEDS: HumuLIN R SUB-Q SCH ×2 (15:46→15:49)
[2019-06-13] MEDS: PHOSLO PO SCH ×2 (15:47→15:49)
[2019-06-13] MEDS: REGLAN IV SCH (15:47)
[2019-06-13] MEDS: SODIUM CHLORIDE FLUSH SYRINGE 10 ML IV SCH (15:48)
[2019-06-13 15:50] VITALS: BP 147/80
[2019-06-13] MEDS: PEPCID PO SCH (15:50)
[2019-06-16] MEDS ORDERED: CATAPRES-TTS PATCH TD SCH (10:00)
== END 2019-06-13 16:03 | disposition home or self-care (01) | DRG 73 ==
LOC: ED 09:59 → INTOOBSV 13:15 → 3A 13:15 → OBSVTOIN 13:15 → CC1 06-09 01:50 → OBSVTOIN 06-09 01:55 → 4A 06-11 22:00
PROVIDERS: ADMIT Internal Medicine; ATTEND Hospitalist
PROC: 5A1D70Z Performance of Urinary Filtration, Intermittent, Less than 6 Hours Per Day (ICD-10-PCS; principal; 2019-06-08)
PROC: 5A1D70Z Performance of Urinary Filtration, Intermittent, Less than 6 Hours Per Day (ICD-10-PCS; 2019-06-11)
PROC: 5A1D70Z Performance of Urinary Filtration, Intermittent, Less than 6 Hours Per Day (ICD-10-PCS; 2019-06-13)
DX: E11.43 Type 2 diabetes mellitus with diabetic autonomic (poly)neuropathy (principal); N18.6 End stage renal disease; R65.10 Systemic inflammatory response syndrome (SIRS) of non-infectious origin without acute organ dysfunction; E87.2 Acidosis; I12.0 Hypertensive chronic kidney disease with stage 5 chronic kidney disease or end stage renal disease; I16.1 Hypertensive emergency; N25.81 Secondary hyperparathyroidism of renal origin; K31.84 Gastroparesis; E11.22 Type 2 diabetes mellitus with diabetic chronic kidney disease; E66.01 Morbid (severe) obesity due to excess calories; D63.1 Anemia in chronic kidney disease; G43.909 Migraine, unspecified, not intractable, without status migrainosus; F41.9 Anxiety disorder, unspecified; Z86.73 Personal history of transient ischemic attack (TIA), and cerebral infarction without residual deficits; Z99.2 Dependence on renal dialysis; Z91.041 Radiographic dye allergy status; Z91.013 Allergy to seafood; Z79.4 Long term (current) use of insulin; Z79.899 Other long term (current) drug therapy; Z68.32 Body mass index [BMI] 32.0-32.9, adult; I25.2 Old myocardial infarction; Z86.711 Personal history of pulmonary embolism
CPT/HCPCS: 36415; 71045; 74176; 80048; 80053; 80061; 80074; 82140; 82550; 82553; 82962; 83036; 83735; 84484; 85007; 85025; 85027; 85610; 85730; 87040; 87116; 93005; 93010; 96361; 96374; 96375; 96376; G0378; J0360; J1170; J1815; J2270; J2405; J2765; J7030; J7050

== ENCOUNTER 2019-06-23 13:10 | Emergency (ER) | payer OTHER, MEDICARE ==
[2019-06-23] MEDS ORDERED: PEPCID IV ONE (13:36)
[2019-06-23] MEDS ORDERED: ZOFRAN IV ONE ×2 (13:36→18:12)
[2019-06-23] MEDS ORDERED: NORMODYNE IV ONE (14:15)
[2019-06-23] MEDS ORDERED: DILAUDID IV ONE (14:15)
[2019-06-23] MEDS ORDERED: BENADRYL IV ONE (14:17)
[2019-06-23] MEDS ORDERED: REGLAN IV ONE (14:17)
--- NOTE | 2019-06-23 14:18 | Emergency Department Report ---
ED Abdominal Pain HPI - General Chief Complaint: Abdominal Pain Stated Complaint: EMESIS Time Seen by Provider: 06/23/19 14:04 Source: patient, EMS Mode of arrival: Stretcher Limitations: No Limitations - History of Present Illness Initial Comments: 38-year-old male with past medical history of ESRD compliant with dialysis, anemia of chronic disease, diabetes mellitus type 2, gastroparesis and hypertension who presents to the Hospital complaining of epigastric abdominal pain, nausea vomiting, and by mouth intolerance 2 days. Pain described as wate ry to severe, constant, aching, worse with palpation. Similar pain in the past with gastroparesis. Patient presents with elevated blood pressure and states he vomited his medications this morning. Patient complains of some mild coffee ground emesis without gross hematemesis, melena, hematochezia, or diarrhea. Patient has had urine output greater than 2 times per day. Last dialysis was yesterday. He denies previous abdominal surgeries. Admitted earlier this month with gastroparesis with uncontrolled hypertension and d/shawna 06/13. He had unremarkable CT abdomen and pelvis 06/08/2019. Patient states he prefers Dilaudid because morphine does not help his pain. Form Setter: Dr. Méndez - Related Data Home Medications Medication Instructions Recorded Confirmed Last Taken Insulin Regular, Human [Novolin R] 3 - 5 unit SQ TID 06/05/19 06/08/19 06/04/19 18:00 3 units Previous Rx's Medication Instructions Recorded Last Taken Type Calcium Acetate [Phoslo] 1,334 mg PO TIDWM capsule 06/13/19 Unknown Rx Calcium Acetate [Phoslo] 1,334 mg PO TIDWM #30 capsule 06/13/19 Unknown Rx Clonidine HCl [Catapres] 0.3 mg PO BID #60 tablet 06/13/19 Unknown Rx Insulin Glargine [Lantus VIAL] 20 units SUB-Q QHS 30 Days units 06/13/19 Unknown Rx Losartan [Cozaar] 50 mg PO QDAY #30 tablet 06/13/19 Unknown Rx amLODIPine [Norvasc] 10 mg PO DAILY tablet 06/13/19 Unknown Rx amLODIPine [Norvasc] 10 mg PO DAILY #30 tablet 06/13/19 Unknown Rx cloNIDine [Catapres] 0.3 mg PO Q12HR tablet 06/13/19 Unknown Rx hydrALAZINE [Apresoline TAB] 25 mg PO Q8HR #30 tablet 06/13/19 Unknown Rx Famotidine [Pepcid] 20 mg PO BID #30 tablet 06/23/19 Unknown Rx HYDROcodone/APAP 5-325 [[place] 1 each PO Q4HR PRN #20 tablet 06/23/19 Unknown Rx 5/325] Metoclopramide [Reglan] 10 mg PO TID PRN #20 tab 06/23/19 Unknown Rx Ondansetron [Zofran Odt] 4 mg PO Q8HR PRN #20 tab.rapdis 06/23/19 Unknown Rx Allergies Allergy/AdvReac Type Severity Reaction Status Date / Time cefazolin [From Ancef] Allergy Vomiting Verified 07/21/18 13:02 shellfish derived Allergy Anaphylaxis Verified 06/08/18 15:09 iodine AdvReac Severe Vomiting Verified 06/08/18 15:09 IV dye AdvReac Severe Vomiting Uncoded 04/28/18 08:49 ED Review of Systems ROS: Stated complaint: EMESIS Other details as noted in HPI Comment: All other systems reviewed and negative ED Past Medical Hx - Past Medical History Hx Hypertension: Yes Hx CVA: Yes (TIA's) Hx Heart Attack/AMI: Yes Hx Congestive Heart Failure: No Hx Diabetes: Yes Hx Pulmonary Embolism: Yes Hx Renal Disease: Yes Hx Headaches / Migraines: Yes (Migraines) Hx Psychiatric Treatment: No Hx Asthma: No Hx COPD: No Additional medical history: gastroparesis, PE - Surgical History Additional Surgical History: left eye surgery, right toe amputation, right chest vas cath. GRAFT RIGHT UPPER ARM. Graft revision 06/2018 per pt - Social History Smoking Status: Never Smoker Substance Use Type: None - Medications Home Medications: Home Medications Medication Instructions Recorded Confirmed Last Taken Type Insulin Regular, Human [Novolin R] 3 - 5 unit SQ TID 06/05/19 06/08/19 06/04/19 18:00 History 3 units Calcium Acetate [Phoslo] 1,334 mg PO TIDWM capsule 06/13/19 Unknown Rx Calcium Acetate [Phoslo] 1,334 mg PO TIDWM #30 capsule 06/13/19 Unknown Rx Clonidine HCl [Catapres] 0.3 mg PO BID #60 tablet 06/13/19 Unknown Rx Insulin Glargine [Lantus VIAL] 20 units SUB-Q QHS 30 Days units 06/13/19 Unknown Rx Losartan [Cozaar] 50 mg PO QDAY #30 tablet 06/13/19 Unknown Rx amLODIPine [Norvasc] 10 mg PO DAILY tablet 06/13/19 Unknown Rx amLODIPine [Norvasc] 10 mg PO DAILY #30 tablet 06/13/19 Unknown Rx cloNIDine [Catapres] 0.3 mg PO Q12HR tablet 06/13/19 Unknown Rx hydrALAZINE [Apresoline TAB] 25 mg PO Q8HR #30 tablet 06/13/19 Unknown Rx Famotidine [Pepcid] 20 mg PO BID #30 tablet 06/23/19 Unknown Rx HYDROcodone/APAP 5-325 [[place] 1 each PO Q4HR PRN #20 tablet 06/23/19 Unknown Rx 5/325] Metoclopramide [Reglan] 10 mg PO TID PRN #20 tab 06/23/19 Unknown Rx Ondansetron [Zofran Odt] 4 mg PO Q8HR PRN #20 tab.rapdis 06/23/19 Unknown Rx ED Physical Exam - General Limitations: No Limitations - Other Other exam information: General: No acute distress Head: Atraumatic normocephalic Eyes: Normal appearance, pupils equal reactive to light, extraocular movements intact ENT: Normal oropharynx Neck: Normal appearance, no C-spine tenderness, no meningismus Chest: Clear to auscultation bilaterally, no wheezes, rales, or crackles Cardiovascular: Regular rate and rhythm Abdomen: Soft, nondistended, epigastric, right upper quadrant, left upper quadrant abdominal tenderness, no rebound or guarding, normal bowel sounds Back: Normal inspection, nontender Extremity: Normal inspection, no deformity, full range of motion Neuro: Alert and oriented 3, speech clear, no gross motor or sensory deficit Skin: No rash, warmth, or erythema ED Course Vital Signs 06/23/19 06/23/19 06/23/19 13:24 13:33 14:32 Temperature 98.6 F Pulse Rate 99 H 105 H Respiratory 18 18 Rate Blood Pressure 203/111 203/111 Blood Pressure [Left] O2 Sat by Pulse 98 Oximetry 06/23/19 06/23/19 15:03 16:47 Temperature Pulse Rate 85 90 Respiratory 15 16 Rate Blood Pressure Blood Pressure 152/93 121/84 [Left] O2 Sat by Pulse 99 97 Oximetry ED Medical Decision Making - Lab Data Result diagrams: 06/23/19 13:33 06/23/19 13:43 Lab Results 06/23/19 06/23/19 06/23/19 Range/Units 13:33 13:33 13:43 WBC 12.5 H (4.5-11.0) K/mm3 RBC 3.72 (3.65-5.03) M/mm3 Hgb 11.2 L (11.8-15.2) gm/dl Hct 34.8 L (35.5-45.6) % MCV 94 (84-94) fl MCH 30 (28-32) pg MCHC 32 (32-34) % RDW 15.6 H (13.2-15.2) % Plt Count 178 (140-440) K/mm3 Lymph % (Auto) 12.3 L (13.4-35.0) % [place] % (Auto) 7.8 H (0.0-7.3) % Eos % (Auto) 1.7 (0.0-4.3) % Baso % (Auto) 0.5 (0.0-1.8) % Lymph # 1.5 (1.2-5.4) K/mm3 [place] # 1.0 H (0.0-0.8) K/mm3 Eos # 0.2 (0.0-0.4) K/mm3 Baso # 0.1 (0.0-0.1) K/mm3 Seg Neutrophils % 77.7 H (40.0-70.0) % Seg Neutrophils # 9.7 H (1.8-7.7) K/mm3 Sodium 137 (137-145) mmol/L Potassium 4.5 (3.6-5.0) mmol/L Chloride 91.9 L (98-107) mmol/L Carbon Dioxide 27 (22-30) mmol/L Anion Gap 23 mmol/L BUN 23 H (9-20) mg/dL Creatinine 7.4 H (0.8-1.5) mg/dL Estimated GFR 10 ml/min BUN/Creatinine Ratio 3 % Glucose 227 H (75-100) mg/dL Calcium 10.5 H (8.4-10.2) mg/dL Total Bilirubin 0.40 (0.1-1.2) mg/dL AST 15 (5-40) units/L ALT 12 (7-56) units/L Alkaline Phosphatase 79 (35-129) units/L Total Protein 7.4 (6.3-8.2) g/dL Albumin 4.1 (3.9-5) g/dL Albumin/Globulin Ratio 1.2 % Lipase 27 (13-60) units/L - EKG Data -: EKG Interpreted by Me EKG shows normal: sinus rhythm, axis (qrs 71), QRS complexes (qrsd 71), ST-T waves (no stemi) Rate: normal - Medical Decision Making sx improved with ed tx zofran, pepcid, reglan, dialudid, and benadryl bp improved with labetolol iv pt will be d/shawna home with meds - Differential Diagnosis gastroparesis, gastroenteritis, pancreatitis, gastritis Critical Care Time: No Critical care attestation.: If time is entered above; I have spent that time in minutes in the direct care of this critically ill patient, excluding procedure time. ED Disposition Clinical Impression: DM gastroparesis, HTN (hypertension), ESRD (end stage renal disease) on dialysis Disposition: DC- TO HOME OR SELFCARE Is pt being admited?: No Does the pt Need Aspirin: No Condition: Stable Instructions: Acute Nausea and Vomiting (ED), Abdominal Pain (ED) Additional Instructions: Take the medications as prescribed. Follow-up with your doctor or with a doctor/clinic provided. Return is symptoms worsen as indicated by the discharge instructions. Prescriptions: HYDROcodone/APAP 5-325 [[place] 5/325] 1 each PO Q4HR PRN #20 tablet PRN Reason: Pain Famotidine [Pepcid] 20 mg PO BID #30 tablet Metoclopramide [Reglan] 10 mg PO TID PRN #20 tab PRN Reason: Nausea And Vomiting Ondansetron [Zofran Odt] 4 mg PO Q8HR PRN #20 tab.rapdis PRN Reason: Nausea And Vomiting Referrals: DANE GONZALEZ MD [Primary Care Provider] - 3-5 Days [facility] [Provider Group] - 3-5 Days
[2019-06-23 14:41] LABS: Albumin 4.1 g/dL (3.9-5); Calcium 10.5 mg/dL (8.4-10.2)
[2019-06-23 14:52] LABS: Basophils # (Auto) 0.1 K/mm3 (0.0-0.1); Basophils % (Auto) 0.5 % (0.0-1.8); Eosinophils # (Auto) 0.2 K/mm3 (0.0-0.4); Eosinophils % (Auto) 1.7 % (0.0-4.3); Hematocrit 34.8 % (35.5-45.6); Hemoglobin 11.2 gm/dl (11.8-15.2); Lymphocytes # (Auto) 1.5 K/mm3 (1.2-5.4); Lymphocytes % (Auto) 12.3 % (13.4-35.0); Mean Corpuscular HGB Conc 32 % (32-34); Mean Corpuscular Volume 94 fl (84-94); Monocytes % (Auto) 7.8 % (0.0-7.3); Platelet Count 178 K/mm3 (140-440); Red Blood Count 3.72 M/mm3 (3.65-5.03); Red Cell Distribution Width 15.6 % (13.2-15.2)
[2019-06-23 18:33] VITALS: BP 139/78
== END 2019-06-23 19:55 | disposition home or self-care (01) ==
LOC: ED 13:10
DX: I12.0 Hypertensive chronic kidney disease with stage 5 chronic kidney disease or end stage renal disease (principal); N18.6 End stage renal disease; E11.22 Type 2 diabetes mellitus with diabetic chronic kidney disease; E11.43 Type 2 diabetes mellitus with diabetic autonomic (poly)neuropathy; K31.84 Gastroparesis; G43.909 Migraine, unspecified, not intractable, without status migrainosus; Z99.2 Dependence on renal dialysis; Z91.013 Allergy to seafood; Z88.8 Allergy status to other drugs, medicaments and biological substances; Z91.041 Radiographic dye allergy status; Z79.4 Long term (current) use of insulin; Z79.899 Other long term (current) drug therapy; Z86.73 Personal history of transient ischemic attack (TIA), and cerebral infarction without residual deficits; Z86.711 Personal history of pulmonary embolism; Z89.421 Acquired absence of other right toe(s); Z98.890 Other specified postprocedural states
CPT/HCPCS: 36415; 80053; 83690; 85025; 93005; 93010; 96374; 96375; 96376; 99284; J1170; J1200; J2405; J2765

== ENCOUNTER 2019-07-17 04:13 | Inpatient (IN) | payer OTHER, MEDICARE ==
[2019-07-17] MEDS ORDERED: ASPIRIN PO ONE (05:12)
[2019-07-17] MEDS ORDERED: APRESOLINE IV ONE (05:16)
[2019-07-17] MEDS ORDERED: MORPHINE IV ONE ×2 (05:16→07:20)
[2019-07-17] MEDS ORDERED: ZOFRAN IV ONE ×2 (05:16→07:20)
--- NOTE | 2019-07-17 06:04 | XRay Report ---
CHEST 1 VIEW 0519 INDICATION / CLINICAL INFORMATION: Chest Pain. COMPARISON: 06/08/2019 FINDINGS: SUPPORT DEVICES: None HEART / MEDIASTINUM: No significant abnormality. LUNGS / PLEURA: No significant pulmonary or pleural abnormality. No pneumothorax. ADDITIONAL FINDINGS: No significant additional findings. IMPRESSION: No significant acute abnormality Signer Name: Duarte Rogers MD Signed: 07/17/2019 5:59 AM Workstation Name: [id number]
[2019-07-17 06:11] LABS: Calcium 10.4 mg/dL (8.4-10.2); Hematocrit TNR % (35.5-45.6); Hemoglobin TNR gm/dl (11.8-15.2); Mean Corpuscular HGB Conc TNR % (32-34); Mean Corpuscular Volume TNR fl (84-94); Mean Platelet Volume TNR fl (6-12); Platelet Count TNR K/mm3 (140-440); Red Blood Count TNR M/mm3 (3.65-5.03); Red Cell Distribution Width TNR % (13.2-15.2)
[2019-07-17 06:12] LABS: Basophils % (Auto) TNR % (0.0-1.8); Eosinophils % (Auto) TNR % (0.0-4.3); Lymphocytes % (Auto) TNR % (13.4-35.0); Monocytes % (Auto) TNR % (0.0-7.3)
[2019-07-17 06:13] LABS: Lymphocytes # (Auto) TNR K/mm3 (1.2-5.4); Monocytes # (Auto) TNR K/mm3 (0.0-0.8)
[2019-07-17 06:14] LABS: Eosinophils # (Auto) TNR K/mm3 (0.0-0.4)
[2019-07-17 06:15] LABS: Basophils # (Auto) TNR K/mm3 (0.0-0.1)
[2019-07-17 07:07] LABS: Chol/HDL Ratio 4.55 %
[2019-07-17] MEDS ORDERED: BENADRYL IV ONE (07:20)
[2019-07-17] MEDS ORDERED: NACL 0.9% 1000 ML 1,000 ML IV ONE (07:20)
--- NOTE | 2019-07-17 07:22 | Emergency Department Report ---
ED General Adult HPI - General Chief complaint: Chest Pain Stated complaint: EMESIS/CHEST PAIN Time Seen by Provider: 07/17/19 07:11 Source: patient, EMS Mode of arrival: Stretcher Limitations: No Limitations - History of Present Illness Initial comments: Patient presents to the emergency department with a chief complaint of left- sided chest pain that has been tenderness for the last 2 days. Patient denies any radiation of chest pain and also complains of some nausea and vomiting. Patient has end-stage renal disease on dialysis and goes on Tuesday, Tuesday, Fridays and states that yesterday he received of full dialysis treatment. -: Sudden Location: chest Radiation: non-radiation Severity scale (0 -10): 4 Quality: dull, constant Consistency: constant Improves with: none Worsens with: none Associated Symptoms: denies other symptoms Treatments Prior to Arrival: none - Related Data Home Medications Medication Instructions Recorded Confirmed Last Taken Insulin Regular, Human [Novolin R] 3 - 5 unit SQ TID 06/05/19 06/08/19 06/04/19 18:00 3 units Previous Rx's Medication Instructions Recorded Last Taken Type Calcium Acetate [Phoslo] 1,334 mg PO TIDWM capsule 06/13/19 Unknown Rx Calcium Acetate [Phoslo] 1,334 mg PO TIDWM #30 capsule 06/13/19 Unknown Rx Clonidine HCl [Catapres] 0.3 mg PO BID #60 tablet 06/13/19 Unknown Rx Insulin Glargine [Lantus VIAL] 20 units SUB-Q QHS 30 Days units 06/13/19 Unkno wn Rx Losartan [Cozaar] 50 mg PO QDAY #30 tablet 06/13/19 Unknown Rx amLODIPine [Norvasc] 10 mg PO DAILY tablet 06/13/19 Unknown Rx amLODIPine [Norvasc] 10 mg PO DAILY #30 tablet 06/13/19 Unknown Rx cloNIDine [Catapres] 0.3 mg PO Q12HR tablet 06/13/19 Unknown Rx hydrALAZINE [Apresoline TAB] 25 mg PO Q8HR #30 tablet 06/13/19 Unknown Rx Famotidine [Pepcid] 20 mg PO BID #30 tablet 06/23/19 Unknown Rx HYDROcodone/APAP 5-325 [[place] 1 each PO Q4HR PRN #20 tablet 08/17/19 Unknown Rx 5/325] Metoclopramide [Reglan] 10 mg PO TID PRN #20 tab 06/23/19 Unknown Rx Ondansetron [Zofran Odt] 4 mg PO Q8HR PRN #20 tab.rapdis 06/23/19 Unknown Rx Allergies Allergy/AdvReac Type Severity Reaction Status Date / Time cefazolin [From Anc] Allergy Vomiting Verified 07/21/18 13:02 shellfish derived Allergy Anaphylaxis Verified 06/08/18 15:09 iodine AdvReac Severe Vomiting Verified 06/08/18 15:09 IV dye AdvReac Severe Vomiting Uncoded 04/28/18 08:49 ED Review of Systems ROS: Stated complaint: EMESIS/CHEST PAIN Other details as noted in HPI Comment: All other systems reviewed and negative Constitutional: denies: chills, fever Eyes: denies: eye pain, eye discharge, vision change ENT: denies: ear pain, throat pain Respiratory: denies: cough, shortness of breath, wheezing Cardiovascular: denies: chest pain, palpitations Endocrine: no symptoms reported Gastrointestinal: denies: abdominal pain, nausea, diarrhea Genitourinary: denies: urgency, dysuria Musculoskeletal: denies: back pain, joint swelling, arthralgia Skin: denies: rash, lesions Neurological: denies: headache, weakness, paresthesias Psychiatric: denies: anxiety, depression Hematological/Lymphatic: denies: easy bleeding, easy bruising ED Past Medical Hx - Past Medical History Hx Hypertension: Yes Hx CVA: Yes (TIA's) Hx Heart Attack/AMI: Yes Hx Congestive Heart Failure: No Hx Diabetes: Yes Hx Pulmonary Embolism: Yes Hx Renal Disease: Yes Hx Headaches / Migraines: Yes (Migraines) Hx Psychiatric Treatment: No Hx Asthma: No Hx COPD: No Additional medical history: gastroparesis, PE - Surgical History Additional Surgical History: left eye surgery, right toe amputation, right chest vas cath. GRAFT RIGHT UPPER ARM. Graft revision 06/2018 per pt - Social History Smoking Status: Never Smoker Substance Use Type: None - Medications Home Medications: Home Medications Medication Instructions Recorded Confirmed Last Taken Type Insulin Regular, Human [Novolin R] 3 - 5 unit SQ TID 06/05/19 06/08/19 06/04/19 18:00 History 3 units Calcium Acetate [Phoslo] 1,334 mg PO TIDWM capsule 06/13/19 Unknown Rx Calcium Acetate [Phoslo] 1,334 mg PO TIDWM #30 capsule 06/13/19 Unknown Rx Clonidine HCl [Catapres] 0.3 mg PO BID #60 tablet 06/13/19 Unknown Rx Insulin Glargine [Lantus VIAL] 20 units SUB-Q QHS 30 Days units 06/13/19 Unknown Rx Losartan [Cozaar] 50 mg PO QDAY #30 tablet 06/13/19 Unknown Rx amLODIPine [Norvasc] 10 mg PO DAILY tablet 06/13/19 Unknown Rx amLODIPine [Norvasc] 10 mg PO DAILY #30 tablet 06/13/19 Unknown Rx cloNIDine [Catapres] 0.3 mg PO Q12HR tablet 06/13/19 Unknown Rx hydrALAZINE [Apresoline TAB] 25 mg PO Q8HR #30 tablet 06/13/19 Unknown Rx Famotidine [Pepcid] 20 mg PO BID #30 tablet 06/23/19 Unknown Rx HYDROcodone/APAP 5-325 [[place] 1 each PO Q4HR PRN #20 tablet 06/23/19 Unknown Rx 5/325] Metoclopramide [Reglan] 10 mg PO TID PRN #20 tab 06/23/19 Unknown Rx Ondansetron [Zofran Odt] 4 mg PO Q8HR PRN #20 tab.rapdis 06/23/19 Unknown Rx ED Physical Exam - General Limitations: No Limitations General appearance: alert, in no apparent distress - Head Head exam: Present: atraumatic, normocephalic - Eye Eye exam: Present: normal appearance, PERRL, EOMI - ENT ENT exam: Present: mucous membranes moist - Neck Neck exam: Present: normal inspection - Respiratory Respiratory exam: Present: normal lung sounds bilaterally. Absent: respiratory distress - Cardiovascular Cardiovascular Exam: Present: regular rate, normal rhythm. Absent: systolic murmur, diastolic murmur, rubs, gallop - GI/Abdominal GI/Abdominal exam: Present: soft, normal bowel sounds. Absent: distended, tenderness - Rectal Rectal exam: Present: deferred - Extremities Exam Extremities exam: Present: normal inspection - Back Exam Back exam: Present: normal inspection - Neurological Exam Neurological exam: Present: alert, oriented X3, CN II-XII intact. Absent: motor sensory deficit - Psychiatric Psychiatric exam: Present: normal affect, normal mood - Skin Skin exam: Present: warm, dry, intact, normal color. Absent: rash ED Course Vital Signs 07/17/19 07/17/19 07/17/19 04:41 05:14 06:14 Temperature 99.3 F Pulse Rate 118 H 119 H Respiratory 20 22 31 H Rate Blood Pressure Blood Pressure 206/107 [Left] O2 Sat by Pulse 100 98 Oximetry 07/17/19 07/17/19 07/17/19 06:30 06:52 07:00 Temperature Pulse Rate 117 H 111 H 114 H Respiratory 27 H 20 21 Rate Blood Pressure 211/123 157/83 Blood Pressure 157/83 [Left] O2 Sat by Pulse 97 92 93 Oximetry 07/17/19 07/17/19 07/17/19 07:10 07:31 08:00 Temperature Pulse Rate 124 H 128 H Respiratory 29 H Rate Blood Pressure 204/114 204/114 158/92 Blood Pressure [Left] O2 Sat by Pulse 95 92 Oximetry 07/17/19 07/17/19 07/17/19 08:30 09:00 09:30 Temperature Pulse Rate 124 H 123 H 121 H Respiratory Rate Blood Pressure 176/79 125/68 150/75 Blood Pressure [Left] O2 Sat by Pulse 96 83 L 94 Oximetry 07/17/19 07/17/19 07/17/19 10:00 10:31 11:10 Temperature Pulse Rate 117 H 117 H 132 H Respiratory Rate Blood Pressure 125/75 116/68 Blood Pressure [Left] O2 Sat by Pulse 94 93 98 Oximetry ED Medical Decision Making - Lab Data Result diagrams: 07/17/19 07:04 07/17/19 05:25 Lab Results 07/17/19 07/17/19 07/17/19 Range/Units 05:22 05:25 05:25 WBC TNR RBC TNR Hgb TNR Hct TNR MCV TNR MCH TNR MCHC TNR RDW TNR Plt Count TNR Lymph % (Auto) TNR [place] % (Auto) TNR Eos % (Auto) TNR Baso % (Auto) TNR Lymph # TNR [place] # TNR Eos # TNR Baso # TNR Add Manual Diff TNR Total Counted Seg Neutrophils % TNR Seg Neuts % (Manual) (40.0-70.0) % Band Neutrophils % % Lymphocytes % (Manual) (13.4-35.0) % Reactive Lymphs % (Man) % Monocytes % (Manual) (0.0-7.3) % Eosinophils % (Manual) (0.0-4.3) % Basophils % (Manual) (0.0-1.8) % Metamyelocytes % % Myelocytes % % Promyelocytes % % Blast Cells % % Nucleated RBC % Seg Neutrophils # TNR Seg Neutrophils # Man (1.8-7.7) K/mm3 Band Neutrophils # K/mm3 Lymphocytes # (Manual) (1.2-5.4) K/mm3 Abs React Lymphs (Man) K/mm3 Monocytes # (Manual) (0.0-0.8) K/mm3 Eosinophils # (Manual) (0.0-0.4) K/mm3 Basophils # (Manual) (0.0-0.1) K/mm3 Metamyelocytes # K/mm3 Myelocytes # K/mm3 Promyelocytes # K/mm3 Blast Cells # K/mm3 WBC Morphology Hypersegmented Neuts Hyposegmented Neuts Hypogranular Neuts Smudge Cells Toxic Granulation Toxic Vacuolation Dohle Bodies Pelger-Huet Anomaly Kate Rods Platelet Estimate Clumped Platelets Plt Clumps, EDTA Large Platelets Giant Platelets Platelet Satelliting Plt Morphology Comment RBC Morphology Dimorphic RBCs Polychromasia Hypochromasia Poikilocytosis Anisocytosis Microcytosis Macrocytosis Spherocytes Pappenheimer Bodies Sickle Cells Target Cells Tear Drop Cells Ovalocytes Helmet Cells Bustos-Rialto Bodies [place] Rings [place] Cells Bite Cells Crenated Cell Elliptocytes Acanthocytes (Spur) Rouleaux Hemoglobin C Crystals Schistocytes Malaria parasites Fredi Bodies Hem Pathologist Commnt Sodium 144 (137-145) mmol/L Potassium 4.4 (3.6-5.0) mmol/L Chloride 95.0 L (98-107) mmol/L Carbon Dioxide 21 L (22-30) mmol/L Anion Gap 32 mmol/L BUN 27 H (9-20) mg/dL Creatinine 9.7 H (0.8-1.5) mg/dL Estimated GFR 7 ml/min BUN/Creatinine Ratio 3 % Glucose 249 H (75-100) mg/dL POC Glucose 269 H (70-105) Calcium 10.4 H (8.4-10.2) mg/dL Total Bilirubin (0.1-1.2) mg/dL Direct Bilirubin (0-0.2) mg/dL Indirect Bilirubin mg/dL AST (5-40) units/L ALT (7-56) units/L Alkaline Phosphatase (35-129) units/L Troponin T 0.398 H* (0.00-0.029) ng/mL Total Protein (6.3-8.2) g/dL Albumin (3.9-5) g/dL Albumin/Globulin Ratio % Triglycerides 144 (2-149) mg/dL Cholesterol 173 (50-199) mg/dL LDL Cholesterol Direct 128 (50-130) mg/dL HDL Cholesterol 38 L (40-59) mg/dL Cholesterol/HDL Ratio 4.55 % Lipase (13-60) units/L 07/17/19 07/17/19 07/17/19 Range/Units 07:04 07:34 07:34 WBC 15.1 H RBC 3.92 Hgb 11.7 L Hct 37.2 MCV 95 H MCH 30 MCHC 32 RDW 19.2 H Plt Count 160 Lymph % (Auto) [place] % (Auto) Eos % (Auto) Baso % (Auto) Lymph # [place] # Eos # Baso # Add Manual Diff Complete Total Counted 100 Seg Neutrophils % Cotton Weigher Seg Neuts % (Manual) 91.0 H (40.0-70.0) % Band Neutrophils % 0 % Lymphocytes % (Manual) 8.0 L (13.4-35.0) % Reactive Lymphs % (Man) 0 % Monocytes % (Manual) 1.0 (0.0-7.3) % Eosinophils % (Manual) 0 (0.0-4.3) % Basophils % (Manual) 0 (0.0-1.8) % Metamyelocytes % 0 % Myelocytes % 0 % Promyelocytes % 0 % Blast Cells % 0 % Nucleated RBC % Not Reportable Seg Neutrophils # Seg Neutrophils # Man 13.7 H (1.8-7.7) K/mm3 Band Neutrophils # 0.0 K/mm3 Lymphocytes # (Manual) 1.2 (1.2-5.4) K/mm3 Abs React Lymphs (Man) 0.0 K/mm3 Monocytes # (Manual) 0.2 (0.0-0.8) K/mm3 Eosinophils # (Manual) 0.0 (0.0-0.4) K/mm3 Basophils # (Manual) 0.0 (0.0-0.1) K/mm3 Metamyelocytes # 0.0 K/mm3 Myelocytes # 0.0 K/mm3 Promyelocytes # 0.0 K/mm3 Blast Cells # 0.0 K/mm3 WBC Morphology Not Reportable Hypersegmented Neuts Not Reportable Hyposegmented Neuts Not Reportable Hypogranular Neuts Not Reportable Smudge Cells Not Reportable Toxic Granulation Not Reportable Toxic Vacuolation Not Reportable Dohle Bodies Not Reportable Pelger-Huet Anomaly Not Reportable Kate Rods Not Reportable Platelet Estimate Consistent w auto Clumped Platelets Not Reportable Plt Clumps, EDTA Not Reportable Large Platelets Not Reportable Giant Platelets Not Reportable Platelet Satelliting Not Reportable Plt Morphology Comment Not Reportable RBC Morphology Not Reportable Dimorphic RBCs Not Reportable Polychromasia Few Hypochromasia Not Reportable Poikilocytosis Not Reportable Anisocytosis Few Microcytosis Not Reportable Macrocytosis Few Spherocytes Not Reportable Pappenheimer Bodies Not Reportable Sickle Cells Not Reportable Target Cells Not Reportable Tear Drop Cells Not Reportable Ovalocytes Few Helmet Cells Not Reportable Bustos-Rialto Bodies Not Reportable [place] Rings Not Reportable Vicky Cells Not Reportable Bite Cells Not Reportable Crenated Cell Not Reportable Elliptocytes Not Reportable Acanthocytes (Spur) Not Reportable Rouleaux Not Reportable Hemoglobin C Crystals Not Reportable Schistocytes Not Reportable Malaria parasites Not Reportable Fredi Bodies Not Reportable Hem Pathologist Commnt No Sodium (137-145) mmol/L Potassium (3.6-5.0) mmol/L Chloride (98-107) mmol/L Carbon Dioxide (22-30) mmol/L Anion Gap mmol/L BUN (9-20) mg/dL Creatinine (0.8-1.5) mg/dL Estimated GFR ml/min BUN/Creatinine Ratio % Glucose (75-100) mg/dL POC Glucose (70-105) Calcium (8.4-10.2) mg/dL Total Bilirubin 0.50 (0.1-1.2) mg/dL Direct Bilirubin < 0.2 (0-0.2) mg/dL Indirect Bilirubin 0.3 mg/dL AST 15 (5-40) units/L ALT 11 (7-56) units/L Alkaline Phosphatase 87 (35-129) units/L Troponin T 0.344 H* (0.00-0.029) ng/mL Total Protein 7.9 (6.3-8.2) g/dL Albumin 4.8 (3.9-5) g/dL Albumin/Globulin Ratio 1.5 % Triglycerides (2-149) mg/dL Cholesterol (50-199) mg/dL LDL Cholesterol Direct (50-130) mg/dL HDL Cholesterol (40-59) mg/dL Cholesterol/HDL Ratio % Lipase 32 (13-60) units/L - Radiology Data Radiology results: report reviewed - Medical Decision Making The patient received IV Zofran, IV Reglan, and Haldol without relief of his symptoms White count likely secondary to acute stress reaction from the gastroparesis The patient has had elevated troponins in the past secondary due cardiac stretch and poor renal clearance due to end-stage renal disease Critical care attestation.: If time is entered above; I have spent that time in minutes in the direct care of this critically ill patient, excluding procedure time. ED Disposition Clinical Impression: Intractable nausea and vomiting, Gastroparesis Disposition: DC-01 TO HOME OR SELFCARE Is pt being admited?: Yes Does the pt Need Aspirin: Yes Condition: Stable Referrals: DANE GONZALEZ MD [Primary Care Provider] - 3-5 Days
[2019-07-17 07:30] LABS: Hematocrit 37.2 % (35.5-45.6); Hemoglobin 11.7 gm/dl (11.8-15.2); Mean Corpuscular HGB Conc 32 % (32-34); Mean Corpuscular Volume 95 fl (84-94); Platelet Count 160 K/mm3 (140-440); Red Blood Count 3.92 M/mm3 (3.65-5.03); Red Cell Distribution Width 19.2 % (13.2-15.2)
[2019-07-17 08:26] LABS: Alanine Aminotransferase 11 units/L (7-56); Albumin 4.8 g/dL (3.9-5)
[2019-07-17 08:43] LABS: Bilirubin,Direct < 0.2 mg/dL (0-0.2)
[2019-07-17 11:26] LABS: Basophils % (Manual) 0 % (0.0-1.8); Eosinophils % (Manual) 0 % (0.0-4.3); Total Cells Counted 100
[2019-07-17 11:27] LABS: Anisocytosis Few; Macrocytosis Few; Ovalocytes Few; Platelet Estimate Consistent w Auto
[2019-07-17] MEDS ORDERED: HALDOL IM ONE (11:57)
[2019-07-17] MEDS ORDERED: REGLAN IV ONE (13:19)
[2019-07-17] MEDS ORDERED: BABY ASPIRIN PO ONE (14:16)
[2019-07-17] MEDS ORDERED: REGLAN PO PRN (18:52)
[2019-07-17] MEDS ORDERED: ZOFRAN ODT PO PRN (18:52)
--- NOTE | 2019-07-17 18:52 | History and Physical Report ---
History of Present Illness Date of examination: 07/17/19 Date of admission: 07/17/19 14:12 Chief complaint: Persistent vomiting since morning Chest pain off and on since morning History of present illness: 38-year-old -[place] male with history of end-stage renal disease, hypertension, CVA, coronary artery disease, pulmonary embolism and gastroparesis/migraines comes in for persistent vomiting for last 2 days. Associated with nausea. Patient has history of gastroparesis. Vision and also has chest pain secondary to reflux. Vomited 4-5 times this morning. Vomiting persistent.. Chest pain is intermittent. Nonradiating. Patient is on dialysis Wednesdays and Fridays. He received full dialysis treatment yesterday which is Tuesday. Past Medical History Hypertension: Yes CVA: Yes (TIA's) Heart Attack/AMI: Yes Congestive Heart Failure: No Diabetes: Yes Pulmonary Embolism: Yes Renal Disease: Yes Headaches / Migraines: Yes (Migraines) Additional medical history: gastroparesis, PE Surgical History Additional Surgical History: left eye surgery, right toe amputation, right chest vas cath. GRAFT RIGHT UPPER ARM. Graft revision 06/2018 per pt Social History Smoking Status: Never Smoker Substance Use Type: None Family history Hypertension: Medications Home Medications: Home Medications Medication Instructions Recorded Confirmed Last Taken Type Insulin Regular, Human [Novolin R] 3 - 5 unit SQ TID 06/05/19 06/08/19 06/04/19 18:00 History 3 units Calcium Acetate [Phoslo] 1,334 mg PO TIDWM capsule 06/13/19 Unknown Rx Calcium Acetate [Phoslo] 1,334 mg PO TIDWM #30 capsule 06/13/19 Unknown Rx Clonidine HCl [Catapres] 0.3 mg PO BID #60 tablet 06/13/19 Unknown Rx Insulin Glargine [Lantus VIAL] 20 units SUB-Q QHS 30 Days units 06/13/19 Unknown Rx Losartan [Cozaar] 50 mg PO QDAY #30 tablet 06/13/19 Unknown Rx amLODIPine [Norvasc] 10 mg PO DAILY tablet 06/13/19 Unknown Rx amLODIPine [Norvasc] 10 mg PO DAILY #30 tablet 06/13/19 Unknown Rx cloNIDine [Catapres] 0.3 mg PO Q12HR tablet 06/13/19 Unknown Rx hydrALAZINE [Apresoline TAB] 25 mg PO Q8HR #30 tablet 06/13/19 Unknown Rx Famotidine [Pepcid] 20 mg PO BID #30 tablet 06/23/19 Unknown Rx HYDROcodone/APAP 5-325 [[place] 1 each PO Q4HR PRN #20 tablet 06/23/19 Unknown Rx 5/325] Metoclopramide [Reglan] 10 mg PO TID PRN #20 tab 06/23/19 Unknown Rx Ondansetron [Zofran Odt] 4 mg PO Q8HR PRN #20 tab.rapdis 06/23/19 Unknown Rx Review of Systems ROS: Stated complaint: EMESIS/CHEST PAIN Other details as noted in HPI Comment: All other systems reviewed and negative Constitutional: denies: chills, fever Eyes: denies: eye pain, eye discharge, vision change ENT: denies: ear pain, throat pain Respiratory: denies: cough, shortness of breath, wheezing Cardiovascular: denies: chest pain, palpitations Endocrine: no symptoms reported Gastrointestinal: denies: abdominal pain, nausea, diarrhea Genitourinary: denies: urgency, dysuria Musculoskeletal: denies: back pain, joint swelling, arthralgia Skin: denies: rash, lesions Neurological: denies: headache, weakness, paresthesias Psychiatric: denies: anxiety, depression Hematological/Lymphatic: denies: easy bleeding, easy bruising Medications and Allergies Allergies Allergy/AdvReac Type Severity Reaction Status Date / Time cefazolin [From [facility] Allergy Vomiting Verified 07/21/18 13:02 shellfish derived Allergy Anaphylaxis Verified 06/08/18 15:09 iodine AdvReac Severe Vomiting Verified 06/08/18 15:09 IV dye AdvReac Severe Vomiting Uncoded 04/28/18 08:49 Home Medications Medication Instructions Recorded Confirmed Last Taken Type Insulin Regular, Human [Novolin R] 3 - 5 unit SQ TID 06/05/19 06/08/19 06/04/19 18:00 History 3 units Calcium Acetate [Phoslo] 1,334 mg PO TIDWM capsule 06/13/19 Unknown Rx Calcium Acetate [Phoslo] 1,334 mg PO TIDWM #30 capsule 06/13/19 Unknown Rx Clonidine HCl [Catapres] 0.3 mg PO BID #60 tablet 06/13/19 Unknown Rx Insulin Glargine [Lantus VIAL] 20 units SUB-Q QHS 30 Days units 06/13/19 Unknown Rx Losartan [Cozaar] 50 mg PO QDAY #30 tablet 06/13/19 Unknown Rx amLODIPine [Norvasc] 10 mg PO DAILY tablet 06/13/19 Unknown Rx amLODIPine [Norvasc] 10 mg PO DAILY #30 tablet 06/13/19 Unknown Rx cloNIDine [Catapres] 0.3 mg PO Q12HR tablet 06/13/19 Unknown Rx hydrALAZINE [Apresoline TAB] 25 mg PO Q8HR #30 tablet 06/13/19 Unknown Rx Famotidine [Pepcid] 20 mg PO BID #30 tablet 06/23/19 Unknown Rx HYDROcodone/APAP 5-325 [[place] 1 each PO Q4HR PRN #20 tablet 06/23/19 Unknown Rx 5/325] Metoclopramide [Reglan] 10 mg PO TID PRN #20 tab 06/23/19 Unknown Rx Ondansetron [Zofran Odt] 4 mg PO Q8HR PRN #20 tab.rapdis 06/23/19 Unknown Rx Exam - Constitutional Vitals: Temp Pulse Resp BP Pulse Ox 98.0 F 113 H 16 157/100 90 07/17/19 18:37 07/17/19 18:37 07/17/19 18:37 07/17/19 18:37 07/17/19 18:37 General appearance: Present: no acute distress, well-nourished - EENT Eyes: Present: PERRL ENT: hearing intact, clear oral mucosa - Neck Neck: Present: supple, normal ROM - Respiratory Respiratory effort: normal Respiratory: bilateral: CTA - Cardiovascular Heart rate: 112 Rhythm: regular Heart Sounds: Present: S1 & S2. Absent: rub, click - Extremities Extremities: no ischemia, pulses intact, pulses symmetrical, No edema Peripheral Pulses: within normal limits - Abdominal General gastrointestinal: Present: soft, tender, non-distended, normal bowel sounds Localized gastrointestinal: tender: diffuse Male genitourinary: Present: normal - Integumentary Integumentary: Present: clear, warm, dry - Musculoskeletal Musculoskeletal: gait normal, strength equal bilaterally - Psychiatric Psychiatric: appropriate mood/affect, intact judgment & insight - Neurologic Neurologic: CNII-XII intact, moves all extremities - Allied Health Allied health notes reviewed: nursing, case management Results - Labs CBC & Chem 7: 07/17/19 07:04 07/17/19 05:25 Labs: Laboratory Last Values WBC 15.1 K/mm3 (4.5-11.0) H 07/17/19 07:04 RBC 3.92 M/mm3 (3.65-5.03) 07/17/19 07:04 Hgb 11.7 gm/dl (11.8-15.2) L 07/17/19 07:04 Hct 37.2 % (35.5-45.6) 07/17/19 07:04 MCV 95 fl (84-94) H 07/17/19 07:04 MCH 30 pg (28-32) 07/17/19 07:04 MCHC 32 % (32-34) 07/17/19 07:04 RDW 19.2 % (13.2-15.2) H 07/17/19 07:04 Plt Count 160 K/mm3 (140-440) 07/17/19 07:04 Lymph % (Auto) TNR 07/17/19 05:25 Cloud % (Auto) TNR 07/17/19 05:25 Eos % (Auto) TNR 07/17/19 05:25 Baso % (Auto) TNR 07/17/19 05:25 Lymph # TNR 07/17/19 05:25 Cloud # TNR 07/17/19 05:25 Eos # TNR 07/17/19 05:25 Baso # TNR 07/17/19 05:25 Add Manual Diff Complete 07/17/19 07:04 Total Counted 100 07/17/19 07:04 Seg Neutrophils % Lead Web Developer 07/17/19 07:04 Seg Neuts % (Manual) 91.0 % (40.0-70.0) H 07/17/19 07:04 0 % 07/17/19 07:04 8.0 % (13.4-35.0) L 07/17/19 07:04 Reactive Lymphs % (Man) 0 % 07/17/19 07:04 1.0 % (0.0-7.3) 07/17/19 07:04 0 % (0.0-4.3) 07/17/19 07:04 0 % (0.0-1.8) 07/17/19 07:04 0 % 07/17/19 07:04 0 % 07/17/19 07:04 0 % 07/17/19 07:04 0 % 07/17/19 07:04 Nucleated RBC % Not Reportable 07/17/19 07:04 Seg Neutrophils # TNR 07/17/19 05:25 Seg Neutrophils # Man 13.7 K/mm3 (1.8-7.7) H 07/17/19 07:04 Band Neutrophils # 0.0 K/mm3 07/17/19 07:04 1.2 K/mm3 (1.2-5.4) 07/17/19 07:04 Abs React Lymphs (Man) 0.0 K/mm3 07/17/19 07:04 0.2 K/mm3 (0.0-0.8) 07/17/19 07:04 0.0 K/mm3 (0.0-0.4) 07/17/19 07:04 0.0 K/mm3 (0.0-0.1) 07/17/19 07:04 0.0 K/mm3 07/17/19 07:04 0.0 K/mm3 07/17/19 07:04 0.0 K/mm3 07/17/19 07:04 Blast Cells # 0.0 K/mm3 07/17/19 07:04 WBC Morphology Not Reportable 07/17/19 07:04 Hypersegmented Neuts Not Reportable 07/17/19 07:04 Hyposegmented Neuts Not Reportable 07/17/19 07:04 Hypogranular Neuts Not Reportable 07/17/19 07:04 Not Reportable 07/17/19 07:04 Not Reportable 07/17/19 07:04 Not Reportable 07/17/19 07:04 Not Reportable 07/17/19 07:04 Not Reportable 07/17/19 07:04 Not Reportable 07/17/19 07:04 Consistent w auto 07/17/19 07:04 Not Reportable 07/17/19 07:04 Plt Clumps, EDTA Not Reportable 07/17/19 07:04 Not Reportable 07/17/19 07:04 Not Reportable 07/17/19 07:04 Not Reportable 07/17/19 07:04 Plt Morphology Comment Not Reportable 07/17/19 07:04 RBC Morphology Not Reportable 07/17/19 07:04 Dimorphic RBCs Not Reportable 07/17/19 07:04 Few 07/17/19 07:04 Not Reportable 07/17/19 07:04 Not Reportable 07/17/19 07:04 Few 07/17/19 07:04 Not Reportable 07/17/19 07:04 Few 07/17/19 07:04 Not Reportable 07/17/19 07:04 Not Reportable 07/17/19 07:04 Not Reportable 07/17/19 07:04 Not Reportable 07/17/19 07:04 Not Reportable 07/17/19 07:04 Few 07/17/19 07:04 Not Reportable 07/17/19 07:04 Not Reportable 07/17/19 07:04 Not Reportable 07/17/19 07:04 Not Reportable 07/17/19 07:04 Not Reportable 07/17/19 07:04 Not Reportable 07/17/19 07:04 Not Reportable 07/17/19 07:04 Acanthocytes (Spur) Not Reportable 07/17/19 07:04 Rouleaux Not Reportable 07/17/19 07:04 Not Reportable 07/17/19 07:04 Not Reportable 07/17/19 07:04 Not Reportable 07/17/19 07:04 Not Reportable 07/17/19 07:04 Hem Pathologist Commnt No 07/17/19 07:04 Sodium 144 mmol/L (137-145) 07/17/19 05:25 Potassium 4.4 mmol/L (3.6-5.0) 07/17/19 05:25 Chloride 95.0 mmol/L (98-107) L 07/17/19 05:25 Carbon Dioxide 21 mmol/L (22-30) L 07/17/19 05:25 32 mmol/L 07/17/19 05:25 BUN 27 mg/dL (9-20) H 07/17/19 05:25 9.7 mg/dL (0.8-1.5) H 07/17/19 05:25 Estimated GFR 7 ml/min 07/17/19 05:25 3 % 07/17/19 05:25 Glucose 249 mg/dL (75-100) H 07/17/19 05:25 POC Glucose 238 (70-105) H 07/17/19 17:45 Calcium 10.4 mg/dL (8.4-10.2) H 07/17/19 05:25 0.50 mg/dL (0.1-1.2) 07/17/19 07:34 < 0.2 mg/dL (0-0.2) 07/17/19 07:34 0.3 mg/dL 07/17/19 07:34 AST 15 units/L (5-40) 07/17/19 07:34 ALT 11 units/L (7-56) 07/17/19 07:34 87 units/L (35-129) 07/17/19 07:34 0.344 ng/mL (0.00-0.029) H* 07/17/19 07:34 7.9 g/dL (6.3-8.2) 07/17/19 07:34 4.8 g/dL (3.9-5) 07/17/19 07:34 1.5 % 07/17/19 07:34 Triglycerides 144 mg/dL (2-149) 07/17/19 05:25 Cholesterol 173 mg/dL (50-199) 07/17/19 05:25 128 mg/dL (50-130) 07/17/19 05:25 38 mg/dL (40-59) L 07/17/19 05:25 4.55 % 07/17/19 05:25 32 units/L (13-60) 07/17/19 07:34 Short CBC 07/17/19 07/17/19 Range/Units 05:25 07:04 WBC TNR 15.1 H Hgb TNR 11.7 L Hct TNR 37.2 Plt Count TNR 160 BMP 07/17/19 05:25 Sodium 144 Potassium 4.4 Chloride 95.0 L Carbon Dioxide 21 L BUN 27 H Creatinine 9.7 H Glucose 249 H Calcium 10.4 H Cardiac Enzymes 07/17/19 07/17/19 Range/Units 05:25 07:34 Troponin T 0.398 H* 0.344 H* (0.00-0.029) ng/mL Liver Function 07/17/19 Range/Units 07:34 Total Bilirubin 0.50 (0.1-1.2) mg/dL Direct Bilirubin < 0.2 (0-0.2) mg/dL AST 15 (5-40) units/L ALT 11 (7-56) units/L Alkaline Phosphatase 87 (35-129) units/L Albumin 4.8 (3.9-5) g/dL - Imaging and Cardiology EKG: report reviewed (sinus tachycardia heart rate of 1 12/m probable left atrial enlargement) Chest x-ray: report reviewed (no acute findings) Assessment and Plan Advance Directives: Yes (full code) VTE prophylaxis?: Chemical Plan of care discussed with patient/family: Yes - Patient Problems (1) Chest pain Current Visit: Yes Status: Acute Qualifiers: Chest pain type: unspecified Qualified Code(s): R07.9 - Chest pain, unspecified Plan to address problem: Probably secondary to reflux and gastroparesis Serial troponins ordered Troponins are high as baseline Cardiology consult--- whether patient needs stress test. (2) Gastroparesis Current Visit: Yes Status: Acute Plan to address problem: Patient has history of gastroparesis IV Zofran and IV Reglan as necessary (3) IDDM (insulin dependent diabetes mellitus) Current Visit: No Status: Chronic Plan to address problem: Adjust insulin dosage higher Check hemoglobin A1c Patient on clear liquid diet Sliding scale coverage every 6 hours (4) Leucocytosis Current Visit: No Status: Acute Plan to address problem: Probably secondary to demargination No antibiotics initiated Trend the white blood cell count No source of infection identified (5) Hypertension Current Visit: Yes Status: Chronic Qualifiers: Hypertension type: essential hypertension Qualified Code(s): I10 - Essential (primary) hypertension Plan to address problem: Continue antihypertensives Changed clonidine from 0.3 every 12 hours to .2 every 8hrs for better coverage so that there is no rebound hypertension (6) GERD (gastroesophageal reflux disease) Current Visit: Yes Status: Chronic Qualifiers: Esophagitis presence: with esophagitis Qualified Code(s): K21.0 - Gastro- esophageal reflux disease with esophagitis Plan to address problem: Continue famotidine 20 mg twice a day IV (7) DVT prophylaxis Current Visit: No Status: Acute Plan to address problem: On heparin subcutaneous and GI prophylaxis
[2019-07-17] MEDS ORDERED: ZOFRAN IV PRN ×2 (18:59→19:07)
[2019-07-17] MEDS ORDERED: TYLENOL PO PRN ×2 (18:59→19:07)
[2019-07-17] MEDS ORDERED: PERCOCET 5/325 PO PRN (18:59)
[2019-07-17] MEDS ORDERED: SODIUM CHLORIDE FLUSH SYRINGE 10 ML IV PRN ×2 (18:59→19:07)
[2019-07-17] MEDS ORDERED: DILAUDID IV PRN (19:03)
[2019-07-17] MEDS ORDERED: REGLAN IV PRN (19:07)
[2019-07-17] MEDS ORDERED: CATAPRES PO SCH (20:00)
[2019-07-17] MEDS: APRESOLINE PO SCH (21:34)
[2019-07-17] MEDS: COZAAR PO SCH (21:34)
[2019-07-17] MEDS: NORVASC PO SCH (21:34)
[2019-07-17] MEDS: SODIUM CHLORIDE FLUSH SYRINGE 10 ML IV SCH ×2 (21:35→22:55)
[2019-07-17] MEDS: PEPCID PO SCH (21:35)
[2019-07-17] MEDS ORDERED: SODIUM CHLORIDE FLUSH SYRINGE 10 ML IV SCH (22:00)
[2019-07-17] MEDS ORDERED: CATAPRES-TTS PATCH TD SCH (22:00)
[2019-07-17] MEDS ORDERED: PEPCID PO SCH (22:00)
[2019-07-17] MEDS: APRESOLINE IV PRN (22:52)
[2019-07-17] MEDS: LANTUS SUB-Q SCH (22:53)
[2019-07-18] MEDS: BENADRYL IV PRN ×4 (00:09→18:33)
[2019-07-18] MEDS: HumaLOG SUB-Q SCH ×4 (01:55→18:37)
[2019-07-18] MEDS ORDERED: HEPARIN 10,000 UNITS/10 ML IV ONE ×2 (02:57→12:29)
--- NOTE | 2019-07-18 03:06 | Event Note ---
Date: 07/18/19 Troponin continues to trend now at 0.651. Will continue to trend. Repeat EKG unchanged from previous. Patient denies chest pain/ discomfort. Will start patient on heparin. Cardiology consult pending
[2019-07-18] MEDS: HEPARIN/ 0.45% NACL-25,000 UNIT/500 ML 25,000 UNIT/500 ML BAG IV SCH (03:59)
[2019-07-18] MEDS: APRESOLINE IV PRN ×3 (04:42→18:44)
[2019-07-18 05:33] LABS: INR 1.19 (0.87-1.13)
[2019-07-18 05:34] LABS: Partial Thromboplastin Time 28.6 Sec. (24.2-36.6)
[2019-07-18] MEDS: APRESOLINE PO SCH ×3 (06:43→21:26)
[2019-07-18] MEDS: HumuLIN R SUB-Q SCH ×4 (07:30→18:36)
[2019-07-18] MEDS: NORVASC PO SCH (08:00)
[2019-07-18] MEDS: PHOSLO PO SCH ×3 (08:00→17:47)
[2019-07-18] MEDS: MORPHINE IV PRN ×3 (08:23→18:31)
--- NOTE | 2019-07-18 09:08 | Consultation ---
History of Present Illness - History of Present Illness My assessment and plan are as follows End-stage renal disease: Patient will continue with hemodialysis treatment on scheduled as tolerated, monitor dialysis related labs, normal dialysis days are MWF Admitted with chest pain left-sided for 2 days prior history of coronary artery disease patient needs cardiology evaluation prior to dialysis/also has history of pulmonary embolism There is no emergent indication for renal replacement therapy today as of yesterday potassium is 4.4 BUN 27 creatinine is 9.7, troponin has trended up Anemia and end-stage renal disease: Current hemoglobin satisfactory 11.7 Secondary hyperparathyroidism: Monitor phosphorus and PTH periodically and adjust binders as needed Diet and nutrition: Fluid restriction 1200 mL per day, high-protein diet may benefit from nutrition consultation , patient is protein intake should be 1.5 g per KG body weight Hypertension and volume continue to monitor, educated about fluid restriction sodium restriction Patient does exhibit good understanding of the renal related issues Multiple other comorbidities including CVA, coronary artery disease, pulmonary embolism, gastroparesis, myocardial infarction, migraine headaches, being followed by primary team Patient has been adequately counseled and educated regarding all the renal related issues Renal care plan was discussed with patient Prognosis remains guarded at this time due to dialysis status We'll continue to follow and make recommendation from renal standpoint She have any questions please feel free to contact me at [phone] Flavio Méndez M.D. [facility], [address] [place] [address] History of presenting illness Patient is a 38-year-old -[place] male who is currently established with our practice for end-stage renal disease care, he currently is being dialyzed at [facility] on Tuesday schedule. patient does have known history of coronary artery disease myocardial infarction uncontrolled hypertension and diabetes and has been admitted here with chest pain for which the workup is currently in progress his troponin has increased from his baseline upon admission, he thinks he is again having gastrparesis flare , he has been having N/V Potassium has been normal BUN/creatinine satisfactory for dialysis status patient does not complain of any swelling or shortness of breath at this time No history of any fever or chills Past medical history significant for ESRD Hypertension Diabetes Myocardial infarction Coronary artery disease Diabetes gastroparalysis Secondary hyperparathyroidism Difficult to control hypertension Current allergies: Reviewed Home medication present medication: Reviewed Social history/family history: Reviewed Review of system: Acute onset of chest pain left-sided currently undergoing workup No history of any fever or chills cough cold congestion. Still having issues with his gastroparesis now and then All other review of systems negative Physical examination: General: No acute distress HEENT: Oral mucosa moist no icterus, no facial swelling Neck: Supple no thyromegaly no lymphadenopathy no JVD Chest: Clear to auscultation no crackles rales or wheezes Heart: Regular rate and rhythm S1-S2 heard no S3-S4 Abdomen: Soft nontender no organomegaly no masses palpable no renal bruit no suprapubic masses no CVA tenderness Dermatology: No skin rashes noted Extremity: Less than 1+ peripheral edema, dry skin no petechial rashes Fistula: Working well Musculoskeletal: No joint effusion noted in knee and ankle area Psych: No evidence of agitation and aggression noted Neurological: Alert awake follows commands no tremors no myoclonus Back: No CVA tenderness Medications and Allergies Allergies Allergy/AdvReac Type Severity Reaction Status Date / Time cefazolin [From [facility]] Allergy Vomiting Verified 07/21/18 13:02 shellfish derived Allergy Anaphylaxis Verified 06/08/18 15:09 iodine AdvReac Severe Vomiting Verified 06/08/18 15:09 IV dye AdvReac Severe Vomiting Uncoded 04/28/18 08:49 Home Medications Medication Instructions Recorded Confirmed Last Taken Type Insulin Regular, Human [Novolin R] 3 - 5 unit SQ TID 06/05/19 06/08/19 06/04/19 18:00 History 3 units Calcium Acetate [Phoslo] 1,334 mg PO TIDWM capsule 06/13/19 Unknown Rx Calcium Acetate [Phoslo] 1,334 mg PO TIDWM #30 capsule 06/13/19 Unknown Rx Clonidine HCl [Catapres] 0.3 mg PO BID #60 tablet 06/13/19 Unknown Rx Insulin Glargine [Lantus VIAL] 20 units SUB-Q QHS 30 Days units 06/13/19 Unknown Rx Losartan [Cozaar] 50 mg PO QDAY #30 tablet 06/13/19 Unknown Rx amLODIPine [Norvasc] 10 mg PO DAILY tablet 06/13/19 Unknown Rx amLODIPine [Norvasc] 10 mg PO DAILY #30 tablet 06/13/19 Unknown Rx cloNIDine [Catapres] 0.3 mg PO Q12HR tablet 06/13/19 Unknown Rx hydrALAZINE [Apresoline TAB] 25 mg PO Q8HR #30 tablet 06/13/19 Unknown Rx Famotidine [Pepcid] 20 mg PO BID #30 tablet 06/23/19 Unknown Rx HYDROcodone/APAP 5-325 [[place] 1 each PO Q4HR PRN #20 tablet 06/23/19 Unknown Rx 5/325] Metoclopramide [Reglan] 10 mg PO TID PRN #20 tab 06/23/19 Unknown Rx Ondansetron [Zofran Odt] 4 mg PO Q8HR PRN #20 tab.rapdis 06/23/19 Unknown Rx Active Meds: Active Medications Acetaminophen (Tylenol) 650 mg PO Q4H PRN PRN Reason: Pain MILD(1-3)/Fever >100.5/SOARES Amlodipine Besylate (Norvasc) 10 mg PO DAILY [facility] Last Admin: 07/17/19 21:34 Dose: Not Given Documented by: Calcium Acetate (Phoslo) 1,334 mg PO TIDWM [facility] Clonidine HCl (Catapres-Tts Patch) 0.2 mg TD [facility] Last Admin: 07/17/19 22:50 Dose: 0.2 mg Documented by: Diphenhydramine HCl (Benadryl) 25 mg IV Q6H PRN PRN Reason: Itching, sleep Last Admin: 07/18/19 05:41 Dose: 25 mg Documented by: Famotidine (Pepcid) 10 mg PO BID [facility] Last Admin: 07/17/19 21:35 Dose: Not Given Documented by: Hydralazine HCl (Apresoline) 25 mg PO Q8HR [facility] Last Admin: 07/18/19 06:43 Dose: Not Given Documented by: Hydralazine HCl (Apresoline) 10 mg IV Q4H PRN PRN Reason: Blood Pressure Last Admin: 07/18/19 04:42 Dose: 10 mg Documented by: Hydromorphone HCl (Dilaudid) 0.5 mg IV Q3H PRN PRN Reason: Pain , Severe (7-10) Heparin Sodium/Sodium Chloride (Heparin/ 0.45% Nacl-25,000 Unit/500 Ml) 25,000 unit in 500 mls @ 20 mls/hr IV TITRATE [facility]; Protocol Last Admin: 07/18/19 03:59 Dose: 1,000 units/hr, 20 mls/hr Documented by: Insulin Glargine (Lantus) 20 units SUB-Q QHS [facility] Last Admin: 07/17/19 22:53 Dose: 20 units Documented by: Insulin Human Lispro (Humalog) 0 unit SUB-Q Q6HR [facility]; Protocol Last Admin: 07/18/19 06:48 Dose: 3 unit Documented by: Insulin Human Regular (Humulin R) 5 units SUB-Q AC [facility] Losartan Potassium (Cozaar) 50 mg PO QDAY [facility] Last Admin: 07/17/19 21:34 Dose: Not Given Documented by: Metoclopramide HCl (Reglan) 10 mg IV Q6H PRN PRN Reason: Nausea And Vomiting Morphine Sulfate (Morphine) 2 mg IV Q4H PRN PRN Reason: Chest Pain Last Admin: 07/18/19 08:23 Dose: 2 mg Documented by: Ondansetron HCl (Zofran Odt) 4 mg PO Q8HR PRN PRN Reason: Nausea And Vomiting Ondansetron HCl (Zofran) 4 mg IV Q3H PRN PRN Reason: Nausea And Vomiting Last Admin: 07/17/19 21:20 Dose: 4 mg Documented by: Oxycodone/Acetaminophen (Percocet 5/325) 1 tab PO Q6H PRN PRN Reason: Pain, Moderate (4-6) Sodium Chloride (Sodium Chloride Flush Syringe 10 Ml) 10 ml IV BID [facility] Last Admin: 07/17/19 22:55 Dose: 10 ml Documented by: Sodium Chloride (Sodium Chloride Flush Syringe 10 Ml) 10 ml IV PRN PRN PRN Reason: LINE FLUSH Exam - Vital Signs Vital signs: Vital Signs Resp 20 07/17/19 04:41 Results - Lab Results 07/18/19 11:08 07/18/19 11:08 Most recent lab results Calcium 10.4 mg/dL (8.4-10.2) H 07/17/19 05:25
[2019-07-18] MEDS: PEPCID PO SCH ×2 (10:00→21:26)
[2019-07-18] MEDS: COZAAR PO SCH (10:00)
[2019-07-18] MEDS: SODIUM CHLORIDE FLUSH SYRINGE 10 ML IV SCH ×2 (10:00→21:27)
--- NOTE | 2019-07-18 10:35 | Consultation ---
<BARI HERNANDEZ - Last Filed: 07/18/19 10:39> History of Present Illness Consult date: 07/18/19 Consult reason: chest pain, elevated troponin History of present illness: This is a 38-year-old male with end-stage renal disease on hemodialysis, hypertension, GERD and diabetic gastroparesis. He has undergone extensive cardiac ischemic workup over the past several years including a negative cardiac catheterization 4 years ago. He has had stress thallium test in 2018 and again 6 months ago that reported normal. An edhocardiogram done a year ago was a normal ejection fraction of 60-65%. Patient presented with complaints of nausea, vomiting and chest pain, admitted w ith severe gastroparesis and hypertensive urgency. ECG is a sinus tachycardia with nonspecific ST and T-wave abnormalities. Cardiac isoenzymes troponin levels elevated, consistent with chronic persistent nonspecific troponin elevation. The troponin levels consistently elevated over several years of measurement. Medications and Allergies Allergies Allergy/AdvReac Type Severity Reaction Status Date / Time cefazolin [From Anc] Allergy Vomiting Verified 07/21/18 13:02 shellfish derived Allergy Anaphylaxis Verified 06/08/18 15:09 iodine AdvReac Severe Vomiting Verified 06/08/18 15:09 IV dye AdvReac Severe Vomiting Uncoded 04/28/18 08:49 Home Medications Medication Instructions Recorded Confirmed Last Taken Type Insulin Regular, Human [Novolin R] 3 - 5 unit SQ TID 06/05/19 06/08/19 06/04/19 18:00 History 3 units Calcium Acetate [Phoslo] 1,334 mg PO TIDWM capsule 06/13/19 Unknown Rx Calcium Acetate [Phoslo] 1,334 mg PO TIDWM #30 capsule 06/13/19 Unknown Rx Clonidine HCl [Catapres] 0.3 mg PO BID #60 tablet 06/13/19 Unknown Rx Insulin Glargine [Lantus VIAL] 20 units SUB-Q QHS 30 Days units 06/13/19 Unknown Rx Losartan [Cozaar] 50 mg PO QDAY #30 tablet 06/13/19 Unknown Rx amLODIPine [Norvasc] 10 mg PO DAILY tablet 06/13/19 Unknown Rx amLODIPine [Norvasc] 10 mg PO DAILY #30 tablet 06/13/19 Unknown Rx cloNIDine [Catapres] 0.3 mg PO Q12HR tablet 06/13/19 Unknown Rx hydrALAZINE [Apresoline TAB] 25 mg PO Q8HR #30 tablet 06/13/19 Unknown Rx Famotidine [Pepcid] 20 mg PO BID #30 tablet 06/23/19 Unknown Rx HYDROcodone/APAP 5-325 [[place] 1 each PO Q4HR PRN #20 tablet 06/23/19 Unknown Rx 5/325] Metoclopramide [Reglan] 10 mg PO TID PRN #20 tab 06/23/19 Unknown Rx Ondansetron [Zofran Odt] 4 mg PO Q8HR PRN #20 tab.rapdis 06/23/19 Unknown Rx Active Meds: Active Medications Acetaminophen (Tylenol) 650 mg PO Q4H PRN PRN Reason: Pain MILD(1-3)/Fever >100.5/SOARES Amlodipine Besylate (Norvasc) 10 mg PO DAILY [facility] Last Admin: 07/17/19 21:34 Dose: Not Given Documented by: Calcium Acetate (Phoslo) 1,334 mg PO TIDWM [facility] Clonidine HCl (Catapres-Tts Patch) 0.2 mg TD [facility] Last Admin: 07/17/19 22:50 Dose: 0.2 mg Documented by: Diphenhydramine HCl (Benadryl) 25 mg IV Q6H PRN PRN Reason: Itching, sleep Last Admin: 07/18/19 05:41 Dose: 25 mg Documented by: Famotidine (Pepcid) 10 mg PO BID [facility] Last Admin: 07/17/19 21:35 Dose: Not Given Documented by: Hydralazine HCl (Apresoline) 25 mg PO Q8HR [facility] Last Admin: 07/18/19 06:43 Dose: Not Given Documented by: Hydralazine HCl (Apresoline) 10 mg IV Q4H PRN PRN Reason: Blood Pressure Last Admin: 07/18/19 04:42 Dose: 10 mg Documented by: Hydromorphone HCl (Dilaudid) 0.5 mg IV Q3H PRN PRN Reason: Pain , Severe (7-10) Heparin Sodium/Sodium Chloride (Heparin/ 0.45% Nacl-25,000 Unit/500 Ml) 25,000 unit in 500 mls @ 20 mls/hr IV TITRATE [facility]; Protocol Last Admin: 07/18/19 03:59 Dose: 1,000 units/hr, 20 mls/hr Documented by: Insulin Glargine (Lantus) 20 units SUB-Q QHS [facility] Last Admin: 07/17/19 22:53 Dose: 20 units Documented by: Insulin Human Lispro (Humalog) 0 unit SUB-Q Q6HR [facility]; Protocol Last Admin: 07/18/19 06:48 Dose: 3 unit Documented by: Insulin Human Regular (Humulin R) 5 units SUB-Q [facility] Losartan Potassium (Cozaar) 50 mg PO QDAY [facility] Last Admin: 07/17/19 21:34 Dose: Not Given Documented by: Metoclopramide HCl (Reglan) 10 mg IV Q6H PRN PRN Reason: Nausea And Vomiting Morphine Sulfate (Morphine) 2 mg IV Q4H PRN PRN Reason: Chest Pain Last Admin: 07/18/19 08:23 Dose: 2 mg Documented by: Ondansetron HCl (Zofran Odt) 4 mg PO Q8HR PRN PRN Reason: Nausea And Vomiting Ondansetron HCl (Zofran) 4 mg IV Q3H PRN PRN Reason: Nausea And Vomiting Last Admin: 07/17/19 21:20 Dose: 4 mg Documented by: Oxycodone/Acetaminophen (Percocet 5/325) 1 tab PO Q6H PRN PRN Reason: Pain, Moderate (4-6) Sodium Chloride (Sodium Chloride Flush Syringe 10 Ml) 10 ml IV BID [facility] Last Admin: 07/17/19 22:55 Dose: 10 ml Documented by: Sodium Chloride (Sodium Chloride Flush Syringe 10 Ml) 10 ml IV PRN PRN PRN Reason: LINE FLUSH Physical Examination Vital Signs Resp 20 07/17/19 04:41 General appearance: no acute distress HEENT: Positive: PERRL Cardiac: Positive: Tachycardia Lungs: Positive: Decreased Breath Sounds Neuro: Positive: Grossly Intact Results 07/17/19 07:04 07/17/19 05:25 Coagulation 07/18/19 Range/Units 04:16 PT 14.8 (12.2-14.9) Sec. INR 1.19 H (0.87-1.13) APTT 28.6 (24.2-36.6) Sec. Assessment and Plan Severe gastroparesis End-stage renal disease on hemodialysis Hypertension, uncontrolled Diabetes Chronic elevated troponin cardiac cath 04/2015 documents no significant CAD. no ischemia on MPI 11/2017. normal perfusion MPI 01/2019. left ventricle systolic function was normal with ejection fraction 60% on an echocardiogram 07/2018. Patient unable to tolerate oral medications due to severe gastroparesis. We will add IV metoprolol in addition to IV hydralazine and Clonidine TTS for optimal blood pressure management. <SOPHIA DONALD - Last Filed: 07/18/19 16:04> Medications and Allergies Active Meds: Active Medications Acetaminophen (Tylenol) 650 mg PO Q4H PRN PRN Reason: Pain MILD(1-3)/Fever >100.5/SOARES Amlodipine Besylate (Norvasc) 10 mg PO DAILY [facility] Last Admin: 07/18/19 08:00 Dose: Not Given Documented by: Calcium Acetate (Phoslo) 1,334 mg PO TIDWM [facility] Last Admin: 07/18/19 12:33 Dose: Not Given Documented by: Clonidine HCl (Catapres-Tts Patch) 0.2 mg TD Tu [facility] Last Admin: 07/17/19 22:50 Dose: 0.2 mg Documented by: Diphenhydramine HCl (Benadryl) 25 mg IV Q6H PRN PRN Reason: Itching, sleep Last Admin: 07/18/19 12:46 Dose: 25 mg Documented by: Famotidine (Pepcid) 10 mg PO BID [facility] Last Admin: 07/18/19 10:00 Dose: Not Given Documented by: Hydralazine HCl (Apresoline) 25 mg PO Q8HR [facility] Last Admin: 07/18/19 13:07 Dose: Not Given Documented by: Hydralazine HCl (Apresoline) 20 mg IV Q4HR PRN PRN Reason: SBP>170 or DBP>110 Last Admin: 07/18/19 15:18 Dose: 20 mg Documented by: Hydromorphone HCl (Dilaudid) 0.5 mg IV Q3H PRN PRN Reason: Pain , Severe (7-10) Heparin Sodium/Sodium Chloride (Heparin/ 0.45% Nacl-25,000 Unit/500 Ml) 25,000 unit in 500 mls @ 20 mls/hr IV TITRATE [facility]; Protocol Last Titration: 07/18/19 12:59 Dose: 1,250 units/hr, 25 mls/hr Documented by: Insulin Glargine (Lantus) 20 units SUB-Q QHS [facility] Last Admin: 07/17/19 22:53 Dose: 20 units Documented by: Insulin Human Lispro (Humalog) 0 unit SUB-Q Q6HR [facility]; Protocol Last Admin: 07/18/19 12:21 Dose: Not Given Documented by: Insulin Human Regular (Humulin R) 5 units SUB-Q AC [facility] Last Admin: 07/18/19 12:21 Dose: Not Given Documented by: Losartan Potassium (Cozaar) 50 mg PO QDAY [facility] Last Admin: 07/18/19 10:00 Dose: Not Given Documented by: Metoclopramide HCl (Reglan) 5 mg IV Q6H PRN PRN Reason: Nausea And Vomiting Metoclopramide HCl (Reglan) 2.5 mg IV [facility] Metoprolol Tartrate (Lopressor) 5 mg IV Q6HR [facility] Last Admin: 07/18/19 12:55 Dose: 5 mg Documented by: Morphine Sulfate (Morphine) 2 mg IV Q4H PRN PRN Reason: Chest Pain Last Admin: 07/18/19 12:48 Dose: 2 mg Documented by: Ondansetron HCl (Zofran Odt) 4 mg PO Q8HR PRN PRN Reason: Nausea And Vomiting Ondansetron HCl (Zofran) 4 mg IV Q3H PRN PRN Reason: Nausea And Vomiting Last Admin: 07/17/19 21:20 Dose: 4 mg Documented by: Oxycodone/Acetaminophen (Percocet 5/325) 1 tab PO Q6H PRN PRN Reason: Pain, Moderate (4-6) Sodium Chloride (Sodium Chloride Flush Syringe 10 Ml) 10 ml IV BID [facility] Last Admin: 07/18/19 10:00 Dose: 10 ml Documented by: Sodium Chloride (Sodium Chloride Flush Syringe 10 Ml) 10 ml IV PRN PRN PRN Reason: LINE FLUSH Physical Examination Vital Signs Resp 20 07/17/19 04:41 Results 07/18/19 11:08 07/18/19 11:08 Cardiac Enzymes 07/18/19 Range/Units 11:08 AST 16 (5-40) units/L Coagulation 07/18/19 Range/Units 04:16 PT 14.8 (12.2-14.9) Sec. INR 1.19 H (0.87-1.13) APTT 28.6 (24.2-36.6) Sec. CBC 07/18/19 Range/Units 11:08 WBC 15.3 H (4.5-11.0) K/mm3 RBC 3.88 (3.65-5.03) M/mm3 Hgb 11.8 (11.8-15.2) gm/dl Hct 37.1 (35.5-45.6) % Plt Count 160 (140-440) K/mm3 Lymph # 0.8 L (1.2-5.4) K/mm3 [place] # 0.8 (0.0-0.8) K/mm3 Eos # 0.0 (0.0-0.4) K/mm3 Baso # 0.0 (0.0-0.1) K/mm3 Comprehensive Metabolic Panel 07/18/19 Range/Units 11:08 Sodium 145 (137-145) mmol/L Potassium 4.6 (3.6-5.0) mmol/L Chloride 98.4 (98-107) mmol/L Carbon Dioxide 21 L (22-30) mmol/L BUN 42 H (9-20) mg/dL Creatinine 12.2 H (0.8-1.5) mg/dL Glucose 230 H (75-100) mg/dL Calcium 9.6 (8.4-10.2) mg/dL AST 16 (5-40) units/L ALT 9 (7-56) units/L Alkaline Phosphatase 72 (35-129) units/L Total Protein 7.9 (6.3-8.2) g/dL Albumin 4.2 (3.9-5) g/dL Assessment and Plan I have seen and evaluated the patient and agree with the assessment and plan. Patient has a history of chronically elevated troponin in the setting of ESRD. The patient has had a cardiac cath 04/2015 that shows no significant CAD. no ischemia on MPI 11/2017. normal perfusion MPI 01/2019. Echo shows left ventricle systolic function was normal with ejection fraction 60% on an echocardiogram 07/2018. No further cardiac evaluation at this time. Patient's blood pressure is elevated and the patient is uanble to take PO at this time due to gastroparesis. Will adjust IV antihypertensive medications.
--- NOTE | 2019-07-18 10:57 | Progress Note ---
Assessment and Plan Assessment and plan: 38-year-old -[place] male with history of end-stage renal disease, hypertension, CVA, coronary artery disease, pulmonary embolism and gastroparesis/migraines comes in for persistent vomiting for last 2 days. Associated with nausea. Patient has history of gastroparesis. Vision and also has chest pain secondary to reflux. Vomited 4-5 times this morning. Vomiting persistent.. Chest pain is intermittent. Nonradiating. Patient is on dialysis Wednesdays and Fridays. Chest pain Admitted Consulted cardiology Gastroparesis Continue anti-emetics clear liquid diet nausea and vomiting from gastroparesis Diabetes mellitus type 2 Accuchek Qac and HS ESRD on hemodialysis M/W/F Hypertensive urgency Metoprolol iv ordered by Cardiology GERD On Protonix Full code status Addendum: Will transfer to [facility] since Metoprolol iv cannot be given in 3 [facility] medical floor. History Interval history: Chest pain nausea, Vomiting Hospitalist Physical - Physical exam Narrative exam: Gen: Not in acute distress,lying in bed, obese HEENT: Normocephalic, atraumatic Neck: supple, no JVD Heart: S1 and S2 reg, no murmurs, rubs or gallop Lungs: Clear to auscultation, no rhonchi, no wheeze Abd: soft, non tender, non distended, normal BS, Ext: No edema, no clubbing, no cyanosis Neuro: Awake, alert, oriented X 3, no focal neurological signs - Constitutional Vitals: Temp Pulse Resp BP Pulse Ox 97.8 F 127 H 22 178/111 100 07/18/19 04:33 07/18/19 04:33 07/18/19 08:23 07/18/19 04:33 07/18/19 08:12 General appearance: Present: no acute distress Results - Labs CBC & Chem 7: 07/19/19 03:33 07/19/19 03:33 Labs: Laboratory Last Values WBC 15.1 K/mm3 (4.5-11.0) H 07/17/19 07:04 RBC 3.92 M/mm3 (3.65-5.03) 07/17/19 07:04 Hgb 11.7 gm/dl (11.8-15.2) L 07/17/19 07:04 Hct 37.2 % (35.5-45.6) 07/17/19 07:04 MCV 95 fl (84-94) H 07/17/19 07:04 MCH 30 pg (28-32) 07/17/19 07:04 MCHC 32 % (32-34) 07/17/19 07:04 RDW 19.2 % (13.2-15.2) H 07/17/19 07:04 Plt Count 160 K/mm3 (140-440) 07/17/19 07:04 Lymph % (Auto) TNR 07/17/19 05:25 [place] % (Auto) TNR 07/17/19 05:25 Eos % (Auto) TNR 07/17/19 05:25 Baso % (Auto) TNR 07/17/19 05:25 Lymph # TNR 07/17/19 05:25 [place] # TNR 07/17/19 05:25 Eos # TNR 07/17/19 05:25 Baso # TNR 07/17/19 05:25 Add Manual Diff Complete 07/17/19 07:04 Total Counted 100 07/17/19 07:04 Seg Neutrophils % Converting Technician 07/17/19 07:04 Seg Neuts % (Manual) 91.0 % (40.0-70.0) H 07/17/19 07:04 0 % 07/17/19 07:04 8.0 % (13.4-35.0) L 07/17/19 07:04 Reactive Lymphs % (Man) 0 % 07/17/19 07:04 1.0 % (0.0-7.3) 07/17/19 07:04 0 % (0.0-4.3) 07/17/19 07:04 0 % (0.0-1.8) 07/17/19 07:04 0 % 07/17/19 07:04 0 % 07/17/19 07:04 0 % 07/17/19 07:04 0 % 07/17/19 07:04 Nucleated RBC % Not Reportable 07/17/19 07:04 Seg Neutrophils # TNR 07/17/19 05:25 Seg Neutrophils # Man 13.7 K/mm3 (1.8-7.7) H 07/17/19 07:04 Band Neutrophils # 0.0 K/mm3 07/17/19 07:04 1.2 K/mm3 (1.2-5.4) 07/17/19 07:04 Abs React Lymphs (Man) 0.0 K/mm3 07/17/19 07:04 0.2 K/mm3 (0.0-0.8) 07/17/19 07:04 0.0 K/mm3 (0.0-0.4) 07/17/19 07:04 0.0 K/mm3 (0.0-0.1) 07/17/19 07:04 0.0 K/mm3 07/17/19 07:04 0.0 K/mm3 07/17/19 07:04 0.0 K/mm3 07/17/19 07:04 Blast Cells # 0.0 K/mm3 07/17/19 07:04 WBC Morphology Not Reportable 07/17/19 07:04 Hypersegmented Neuts Not Reportable 07/17/19 07:04 Hyposegmented Neuts Not Reportable 07/17/19 07:04 Hypogranular Neuts Not Reportable 07/17/19 07:04 Not Reportable 07/17/19 07:04 Not Reportable 07/17/19 07:04 Not Reportable 07/17/19 07:04 Not Reportable 07/17/19 07:04 Not Reportable 07/17/19 07:04 Not Reportable 07/17/19 07:04 Consistent w auto 07/17/19 07:04 Not Reportable 07/17/19 07:04 Plt Clumps, EDTA Not Reportable 07/17/19 07:04 Not Reportable 07/17/19 07:04 Not Reportable 07/17/19 07:04 Not Reportable 07/17/19 07:04 Plt Morphology Comment Not Reportable 07/17/19 07:04 RBC Morphology Not Reportable 07/17/19 07:04 Dimorphic RBCs Not Reportable 07/17/19 07:04 Few 07/17/19 07:04 Not Reportable 07/17/19 07:04 Not Reportable 07/17/19 07:04 Few 07/17/19 07:04 Not Reportable 07/17/19 07:04 Few 07/17/19 07:04 Not Reportable 07/17/19 07:04 Not Reportable 07/17/19 07:04 Not Reportable 07/17/19 07:04 Not Reportable 07/17/19 07:04 Not Reportable 07/17/19 07:04 Few 07/17/19 07:04 Not Reportable 07/17/19 07:04 Not Reportable 07/17/19 07:04 Not Reportable 07/17/19 07:04 Not Reportable 07/17/19 07:04 Not Reportable 07/17/19 07:04 Not Reportable 07/17/19 07:04 Not Reportable 07/17/19 07:04 Acanthocytes (Spur) Not Reportable 07/17/19 07:04 Rouleaux Not Reportable 07/17/19 07:04 Not Reportable 07/17/19 07:04 Not Reportable 07/17/19 07:04 Not Reportable 07/17/19 07:04 Not Reportable 07/17/19 07:04 Hem Pathologist Commnt No 07/17/19 07:04 PT 14.8 Sec. (12.2-14.9) 07/18/19 04:16 INR 1.19 (0.87-1.13) H 07/18/19 04:16 APTT 28.6 Sec. (24.2-36.6) 07/18/19 04:16 Sodium 144 mmol/L (137-145) 07/17/19 05:25 Potassium 4.4 mmol/L (3.6-5.0) 07/17/19 05:25 Chloride 95.0 mmol/L (98-107) L 07/17/19 05:25 Carbon Dioxide 21 mmol/L (22-30) L 07/17/19 05:25 32 mmol/L 07/17/19 05:25 BUN 27 mg/dL (9-20) H 07/17/19 05:25 9.7 mg/dL (0.8-1.5) H 07/17/19 05:25 Estimated GFR 7 ml/min 07/17/19 05:25 3 % 07/17/19 05:25 Glucose 249 mg/dL (75-100) H 07/17/19 05:25 POC Glucose 241 (70-105) H 07/18/19 05:49 7.2 % (4-6) H 07/17/19 19:28 Calcium 10.4 mg/dL (8.4-10.2) H 07/17/19 05:25 0.50 mg/dL (0.1-1.2) 07/17/19 07:34 < 0.2 mg/dL (0-0.2) 07/17/19 07:34 0.3 mg/dL 07/17/19 07:34 AST 15 units/L (5-40) 07/17/19 07:34 ALT 11 units/L (7-56) 07/17/19 07:34 87 units/L (35-129) 07/17/19 07:34 0.651 ng/mL (0.00-0.029) H* D 07/18/19 01:18 7.9 g/dL (6.3-8.2) 07/17/19 07:34 4.8 g/dL (3.9-5) 07/17/19 07:34 1.5 % 07/17/19 07:34 Triglycerides 144 mg/dL (2-149) 07/17/19 05:25 Cholesterol 173 mg/dL (50-199) 07/17/19 05:25 128 mg/dL (50-130) 07/17/19 05:25 38 mg/dL (40-59) L 07/17/19 05:25 4.55 % 07/17/19 05:25 32 units/L (13-60) 07/17/19 07:34 Active Medications - Current Medications Current Medications: Generic Name Dose Route Start Last Admin Trade Name Freq PRN Reason Stop Dose Admin Acetaminophen 650 mg 07/17/19 19:07 Tylenol PO Q4H PRN Pain MILD(1-3)/Fever >100.5/SOARES Amlodipine Besylate 10 mg 07/17/19 20:00 07/17/19 21:34 Norvasc PO Not Given DAILY [facility] Calcium Acetate 1,334 mg 07/18/19 08:00 Phoslo PO TIDWM [facility] Clonidine HCl 0.2 mg 07/17/19 22:00 07/17/19 22:50 Catapres-Tts Patch TD 0.2 mg Tu [facility] Administration Diphenhydramine HCl 25 mg 07/17/19 21:30 07/18/19 05:41 Benadryl IV 25 mg Q6H PRN Administration Itching, sleep Famotidine 10 mg 07/17/19 22:00 07/17/19 21:35 Pepcid PO Not Given BID [facility] Hydralazine HCl 25 mg 07/17/19 22:00 07/18/19 06:43 Apresoline PO Not Given Q8HR [facility] Hydralazine HCl 10 mg 07/17/19 21:29 07/18/19 04:42 Apresoline IV 10 mg Q4H PRN Administration Blood Pressure Hydromorphone HCl 0.5 mg 07/17/19 19:03 Dilaudid IV Q3H PRN Pain , Severe (7-10) Heparin Sodium/Sodium Chloride 25,000 unit in 500 mls @ 20 mls/hr 07/18/19 03:00 07/18/19 03:59 Heparin/ 0.45% Nacl-25,000 Unit/500 Ml IV 1,000 units/hr TITRATE [facility] 20 mls/hr Administration Protocol 1,000 UNITS/HR Insulin Glargine 20 units 07/17/19 22:00 07/17/19 22:53 Lantus SUB-Q 20 units QHS [facility] Administration Insulin Human Lispro 0 unit 07/17/19 20:00 07/18/19 06:48 Humalog SUB-Q 3 unit Q6HR [facility] Administration Protocol Insulin Human Regular 5 units 07/18/19 07:30 Humulin R SUB-Q AC [facility] Losartan Potassium 50 mg 07/17/19 20:00 07/17/19 21:34 Cozaar PO Not Given QDAY [facility] Metoclopramide HCl 5 mg 07/18/19 11:00 Reglan IV Q6H PRN Nausea And Vomiting Metoprolol Tartrate 5 mg 07/18/19 12:00 Lopressor IV Q6HR [facility] Morphine Sulfate 2 mg 07/18/19 08:08 07/18/19 08:23 Morphine IV 2 mg Q4H PRN Administration Chest Pain Ondansetron HCl 4 mg 07/17/19 18:52 Zofran Odt PO Q8HR PRN Nausea And Vomiting Ondansetron HCl 4 mg 07/17/19 19:07 07/17/19 21:20 Zofran IV 4 mg Q3H PRN Administration Nausea And Vomiting Oxycodone/Acetaminophen 1 tab 07/17/19 18:59 Percocet 5/325 PO Q6H PRN Pain, Moderate (4-6) Sodium Chloride 10 ml 07/17/19 22:00 07/17/19 22:55 Sodium Chloride Flush Syringe 10 Ml IV 10 ml BID [facility] Administration Sodium Chloride 10 ml 07/17/19 19:07 Sodium Chloride Flush Syringe 10 Ml IV PRN PRN LINE FLUSH
[2019-07-18] MEDS ORDERED: REGLAN IV PRN (11:00)
[2019-07-18 11:27] LABS: Hematocrit 37.1 % (35.5-45.6); Hemoglobin 11.8 gm/dl (11.8-15.2); Mean Corpuscular HGB Conc 32 % (32-34); Mean Corpuscular Volume 96 fl (84-94); Red Blood Count 3.88 M/mm3 (3.65-5.03)
[2019-07-18 11:28] LABS: Basophils % (Auto) 0.2 % (0.0-1.8); Lymphocytes # (Auto) 0.8 K/mm3 (1.2-5.4); Lymphocytes % (Auto) 4.9 % (13.4-35.0); Monocytes # (Auto) 0.8 K/mm3 (0.0-0.8); Monocytes % (Auto) 4.9 % (0.0-7.3); Platelet Count 160 K/mm3 (140-440); Red Cell Distribution Width 18.8 % (13.2-15.2)
[2019-07-18 11:52] LABS: Albumin 4.2 g/dL (3.9-5); Calcium 9.6 mg/dL (8.4-10.2)
[2019-07-18] MEDS: LOPRESSOR IV SCH ×2 (12:55→17:27)
[2019-07-18] MEDS ORDERED: REGLAN IV SCH (16:30)
[2019-07-18] MEDS: REGLAN IV SCH ×2 (17:28→21:26)
[2019-07-18] MEDS ORDERED: HEPARIN IV ONE (20:43)
[2019-07-18] MEDS: LANTUS SUB-Q SCH (21:52)
[2019-07-19] MEDS: BENADRYL IV PRN (00:50)
[2019-07-19] MEDS: LOPRESSOR IV SCH ×3 (00:50→12:55)
[2019-07-19] MEDS: HEPARIN/ 0.45% NACL-25,000 UNIT/500 ML 25,000 UNIT/500 ML BAG IV SCH ×2 (02:00→22:42)
[2019-07-19] MEDS: APRESOLINE IV PRN (02:09)
[2019-07-19 04:07] LABS: Hematocrit 39.1 % (35.5-45.6); Hemoglobin 12.3 gm/dl (11.8-15.2); Mean Corpuscular HGB Conc 32 % (32-34); Mean Corpuscular Volume 97 fl (84-94); Platelet Count 183 K/mm3 (140-440); Red Blood Count 4.01 M/mm3 (3.65-5.03)
[2019-07-19 04:19] LABS: Calcium 9.8 mg/dL (8.4-10.2)
[2019-07-19] MEDS: HumaLOG SUB-Q SCH ×4 (06:25→18:56)
[2019-07-19] MEDS: APRESOLINE PO SCH ×3 (06:28→22:43)
--- NOTE | 2019-07-19 09:03 | Progress Note ---
Assessment and Plan Assessment and plan: 38-year-old -[place] male with history of end-stage renal disease, hypertension, CVA, coronary artery disease, pulmonary embolism and gastroparesis/migraines comes in for persistent vomiting for last 2 days. Associated with nausea. Patient has history of gastroparesis. Vision and also has chest pain secondary to reflux. Vomited 4-5 times this morning. Vomiting persistent.. Chest pain is intermittent. Nonradiating. Patient is on dialysis Wednesdays and Fridays. Chest pain Admitted Cardiology following Gastroparesis Continue anti-emetics clear liquid diet nausea and vomiting from gastroparesis Improving Hyperkalemia Potassium 5.5 Should resolve with dialysis Diabetes mellitus type 2 Accuchek Qac and HS ESRD on hemodialysis M/W/F Hypertensive urgency Metoprolol iv ordered by Cardiology BP improved GERD On Protonix Full code status History Interval history: feels better, less Chest pain No Vomiting since 8pm last night Hospitalist Physical - Physical exam Narrative exam: Gen: Not in acute distress,lying in bed, obese HEENT: Normocephalic, atraumatic Neck: supple, no JVD Heart: S1 and S2 reg, no murmurs, rubs or gallop Lungs: Clear to auscultation, no rhonchi, no wheeze Abd: soft, non tender, non distended, normal BS, Ext: No edema, no clubbing, no cyanosis Neuro: Awake, alert, oriented X 3, no focal neurological signs - Constitutional Vitals: Temp Pulse Resp BP Pulse Ox 98.4 F 122 H 18 162/90 94 07/19/19 04:00 07/19/19 06:33 07/19/19 06:00 07/19/19 06:33 07/19/19 05:31 General appearance: Present: no acute distress Results - Labs CBC & Chem 7: 07/19/19 03:33 07/19/19 03:33 Labs: Laboratory Last Values WBC 17.1 K/mm3 (4.5-11.0) H 07/19/19 03:33 RBC 4.01 M/mm3 (3.65-5.03) 07/19/19 03:33 Hgb 12.3 gm/dl (11.8-15.2) 07/19/19 03:33 Hct 39.1 % (35.5-45.6) 07/19/19 03:33 MCV 97 fl (84-94) H 07/19/19 03:33 MCH 31 pg (28-32) 07/19/19 03:33 MCHC 32 % (32-34) 07/19/19 03:33 RDW 19.0 % (13.2-15.2) H 07/19/19 03:33 Plt Count 183 K/mm3 (140-440) 07/19/19 03:33 Lymph % (Auto) 4.9 % (13.4-35.0) L 07/18/19 11:08 Wallace % (Auto) 4.9 % (0.0-7.3) 07/18/19 11:08 Eos % (Auto) 0.0 % (0.0-4.3) 07/18/19 11:08 Baso % (Auto) 0.2 % (0.0-1.8) 07/18/19 11:08 Lymph # 0.8 K/mm3 (1.2-5.4) L 07/18/19 11:08 Wallace # 0.8 K/mm3 (0.0-0.8) 07/18/19 11:08 Eos # 0.0 K/mm3 (0.0-0.4) 07/18/19 11:08 Baso # 0.0 K/mm3 (0.0-0.1) 07/18/19 11:08 Add Manual Diff Complete 07/17/19 07:04 Total Counted 100 07/17/19 07:04 Seg Neutrophils % 90.0 % (40.0-70.0) H 07/18/19 11:08 Seg Neuts % (Manual) 91.0 % (40.0-70.0) H 07/17/19 07:04 0 % 07/17/19 07:04 8.0 % (13.4-35.0) L 07/17/19 07:04 Reactive Lymphs % (Man) 0 % 07/17/19 07:04 1.0 % (0.0-7.3) 07/17/19 07:04 0 % (0.0-4.3) 07/17/19 07:04 0 % (0.0-1.8) 07/17/19 07:04 0 % 07/17/19 07:04 0 % 07/17/19 07:04 0 % 07/17/19 07:04 0 % 07/17/19 07:04 Nucleated RBC % Not Reportable 07/17/19 07:04 Seg Neutrophils # 13.7 K/mm3 (1.8-7.7) H 07/18/19 11:08 Seg Neutrophils # Man 13.7 K/mm3 (1.8-7.7) H 07/17/19 07:04 Band Neutrophils # 0.0 K/mm3 07/17/19 07:04 1.2 K/mm3 (1.2-5.4) 07/17/19 07:04 Abs React Lymphs (Man) 0.0 K/mm3 07/17/19 07:04 0.2 K/mm3 (0.0-0.8) 07/17/19 07:04 0.0 K/mm3 (0.0-0.4) 07/17/19 07:04 0.0 K/mm3 (0.0-0.1) 07/17/19 07:04 0.0 K/mm3 07/17/19 07:04 0.0 K/mm3 07/17/19 07:04 0.0 K/mm3 07/17/19 07:04 Blast Cells # 0.0 K/mm3 07/17/19 07:04 WBC Morphology Not Reportable 07/17/19 07:04 Hypersegmented Neuts Not Reportable 07/17/19 07:04 Hyposegmented Neuts Not Reportable 07/17/19 07:04 Hypogranular Neuts Not Reportable 07/17/19 07:04 Not Reportable 07/17/19 07:04 Not Reportable 07/17/19 07:04 Not Reportable 07/17/19 07:04 Not Reportable 07/17/19 07:04 Not Reportable 07/17/19 07:04 Not Reportable 07/17/19 07:04 Consistent w auto 07/17/19 07:04 Not Reportable 07/17/19 07:04 Plt Clumps, EDTA Not Reportable 07/17/19 07:04 Not Reportable 07/17/19 07:04 Not Reportable 07/17/19 07:04 Not Reportable 07/17/19 07:04 Plt Morphology Comment Not Reportable 07/17/19 07:04 RBC Morphology Not Reportable 07/17/19 07:04 Dimorphic RBCs Not Reportable 07/17/19 07:04 Few 07/17/19 07:04 Not Reportable 07/17/19 07:04 Not Reportable 07/17/19 07:04 Few 07/17/19 07:04 Not Reportable 07/17/19 07:04 Few 07/17/19 07:04 Not Reportable 07/17/19 07:04 Not Reportable 07/17/19 07:04 Not Reportable 07/17/19 07:04 Not Reportable 07/17/19 07:04 Not Reportable 07/17/19 07:04 Few 07/17/19 07:04 Not Reportable 07/17/19 07:04 Not Reportable 07/17/19 07:04 Not Reportable 07/17/19 07:04 Not Reportable 07/17/19 07:04 Not Reportable 07/17/19 07:04 Not Reportable 07/17/19 07:04 Not Reportable 07/17/19 07:04 Acanthocytes (Spur) Not Reportable 07/17/19 07:04 Rouleaux Not Reportable 07/17/19 07:04 Not Reportable 07/17/19 07:04 Not Reportable 07/17/19 07:04 Not Reportable 07/17/19 07:04 Not Reportable 07/17/19 07:04 Hem Pathologist Commnt No 07/17/19 07:04 PT 14.8 Sec. (12.2-14.9) 07/18/19 04:16 INR 1.19 (0.87-1.13) H 07/18/19 04:16 APTT 28.6 Sec. (24.2-36.6) 07/18/19 04:16 Heparin Anti-Xa Level 1.14 U.I./ml (0.3-0.7) H 07/19/19 03:33 Sodium 148 mmol/L (137-145) H 07/19/19 03:33 Potassium 5.5 mmol/L (3.6-5.0) H 07/19/19 03:33 Chloride 100.9 mmol/L (98-107) 07/19/19 03:33 Carbon Dioxide 25 mmol/L (22-30) 07/19/19 03:33 28 mmol/L 07/19/19 03:33 BUN 50 mg/dL (9-20) H 07/19/19 03:33 14.3 mg/dL (0.8-1.5) H 07/19/19 03:33 Estimated GFR 5 ml/min 07/19/19 03:33 3 % 07/19/19 03:33 Glucose 177 mg/dL (75-100) H 07/19/19 03:33 POC Glucose 168 (70-105) H 07/19/19 06:21 7.2 % (4-6) H 07/17/19 19:28 Calcium 9.8 mg/dL (8.4-10.2) 07/19/19 03:33 0.40 mg/dL (0.1-1.2) 07/18/19 11:08 < 0.2 mg/dL (0-0.2) 07/17/19 07:34 0.3 mg/dL 07/17/19 07:34 AST 16 units/L (5-40) 07/18/19 11:08 ALT 9 units/L (7-56) 07/18/19 11:08 72 units/L (35-129) 07/18/19 11:08 0.531 ng/mL (0.00-0.029) H* 07/18/19 15:28 7.9 g/dL (6.3-8.2) 07/18/19 11:08 4.2 g/dL (3.9-5) 07/18/19 11:08 1.1 % 07/18/19 11:08 Triglycerides 144 mg/dL (2-149) 07/17/19 05:25 Cholesterol 173 mg/dL (50-199) 07/17/19 05:25 128 mg/dL (50-130) 07/17/19 05:25 38 mg/dL (40-59) L 07/17/19 05:25 4.55 % 07/17/19 05:25 32 units/L (13-60) 07/17/19 07:34 Active Medications - Current Medications Current Medications: Generic Name Dose Route Start Last Admin Trade Name Freq PRN Reason Stop Dose Admin Acetaminophen 650 mg 07/17/19 19:07 Tylenol PO Q4H PRN Pain MILD(1-3)/Fever >100.5/SOARES Amlodipine Besylate 10 mg 07/17/19 20:00 07/18/19 08:00 Norvasc PO Not Given DAILY REPLACED BY [facility] Calcium Acetate 1,334 mg 07/18/19 08:00 07/18/19 17:47 Phoslo PO Not Given TIDWM REPLACED BY [facility] Clonidine HCl 0.2 mg 07/17/19 22:00 07/17/19 22:50 Catapres-Tts Patch TD 0.2 mg Tu SANDRINE Administration Diphenhydramine HCl 25 mg 07/17/19 21:30 07/19/19 00:50 Benadryl IV 25 mg Q6H PRN Administration Itching, sleep Famotidine 10 mg 07/17/19 22:00 07/18/19 21:26 Pepcid PO Not Given BID REPLACED BY [facility] Hydralazine HCl 25 mg 07/17/19 22:00 07/19/19 06:28 Apresoline PO Not Given Q8HR REPLACED BY [facility] Hydralazine HCl 20 mg 07/18/19 11:10 07/19/19 02:09 Apresoline IV 20 mg Q4HR PRN Administration SBP>170 or DBP>110 Hydromorphone HCl 0.5 mg 07/17/19 19:03 07/19/19 00:50 Dilaudid IV 0.5 mg Q3H PRN Administration Pain , Severe (7-10) Heparin Sodium/Sodium Chloride 25,000 unit in 500 mls @ 20 mls/hr 07/18/19 03:00 07/19/19 07:00 Heparin/ 0.45% Nacl-25,000 Unit/500 Ml IV 1,350 units/hr TITRATE REPLACED BY [facility] 27 mls/hr Titration Protocol 1,000 UNITS/HR Insulin Glargine 20 units 07/17/19 22:00 07/18/19 21:52 Lantus SUB-Q 20 units QHS REPLACED BY [facility] Administration Insulin Human Lispro 0 unit 07/17/19 20:00 07/19/19 06:25 Humalog SUB-Q Not Given Q6HR REPLACED BY [facility] Protocol Insulin Human Regular 5 units 07/18/19 07:30 07/18/19 18:36 Humulin R SUB-Q 5 units AC REPLACED BY [facility] Administration Losartan Potassium 50 mg 07/17/19 20:00 07/18/19 10:00 Cozaar PO Not Given QDAY SANDRINE Metoclopramide HCl 5 mg 07/18/19 11:00 Reglan IV Q6H PRN Nausea And Vomiting Metoclopramide HCl 2.5 mg 07/18/19 16:30 07/18/19 21:26 Reglan IV 2.5 mg ACHS SANDRINE Administration Metoprolol Tartrate 5 mg 07/18/19 12:00 07/19/19 06:33 Lopressor IV 5 mg Q6HR SANDRINE Administration Morphine Sulfate 2 mg 07/18/19 08:08 07/18/19 18:31 Morphine IV 2 mg Q4H PRN Administration Chest Pain Ondansetron HCl 4 mg 07/17/19 18:52 Zofran Odt PO Q8HR PRN Nausea And Vomiting Ondansetron HCl 4 mg 07/17/19 19:07 07/17/19 21:20 Zofran IV 4 mg Q3H PRN Administration Nausea And Vomiting Oxycodone/Acetaminophen 1 tab 07/17/19 18:59 Percocet 5/325 PO Q6H PRN Pain, Moderate (4-6) Sodium Chloride 10 ml 07/17/19 22:00 07/18/19 21:27 Sodium Chloride Flush Syringe 10 Ml IV 10 ml BID SANDRINE Administration Sodium Chloride 10 ml 07/17/19 19:07 Sodium Chloride Flush Syringe 10 Ml IV PRN PRN LINE FLUSH
[2019-07-19] MEDS ORDERED: CATAPRES-TTS PATCH TD SCH ×3 (09:54→13:00)
--- NOTE | 2019-07-19 09:55 | Progress Note ---
Subjective Interval history: Patient was seen today for follow-up on multiple renal related issues Events of this hospitalization were noted Status was cardiology evaluation Has been having episodes of nausea and vomiting Blood pressure mildly elevated mild tachycardia Interdisciplinary notes were also reviewed Vitals intake output medications were reviewed Past medical history: Reviewed Family, social history: Reviewed Allergies: Reviewed Physical examination General: No acute distress Vitals: Reviewed HEENT: Oral mucosa moist no icterus Neck: Supple no thyromegaly nodular mass or JVD Chest: Clear to auscultation anteriorly Heart: Regular rate and rhythm S1-S2 heard no S3-S4 Abdomen: Soft nontender no suprapubic masses no organomegaly Extremity: Dry skin no edema Psych: No evidence of any agitation and aggression noted Derm: No petechial rash Assessment and plan: End-stage renal disease: Patient is currently dialysis dependent normally on Tuesday and Tuesday, will dialyze him today his potassium is currently around 5.5 BUN 50 creatinine 14.3 hemoglobin 12.3, will not do any ultrafiltration today and in fact if required can be given 500 mL of IV fluid, half-normal saline Will place him on hemodialysis TTS, while in the hospital Diabetes with gastroparesis, periodically does get flare has had several spells of nausea and vomiting yesterday, still feels nauseous today as well Chest pain: Being followed by primary team/ as well as cardiology Anemia and end-stage renal disease: To monitor and follow, erythropoietin as required goal hemoglobin dialysis patients usually occurring 10 and 12, we will follow Secondary hyperparathyroidism: Monitor phosphorus and PTH periodically and adjust binders as needed Diet and nutrition: Fluid restriction 1200 mL per day, high-protein diet may benefit from nutrition consultation , patient is protein intake should be 1.5 g per KG body weight Hypertension and volume continue to monitor, educated about fluid restriction sodium restriction Mild hyperkalemia would not use any form of JARRED inhibitor or angiotensin receptor carmen for now Alternatively minoxidil 2.5 mg once of twice a day can be considered if required Suggest avoiding hydralazine with tachycardia Would like to increase his clonidine to 0.4 for now cardiology is also following Patient does exhibit good understanding of the renal related issues All renal related issues were discussed with the patient, patient does exhibit good understanding, lab results were also discussed with patient in simple En glish Prognosis: Guarded We'll continue to follow and make recommendation from renal standpoint Objective - Vital Signs Vital signs: Vital Signs - 12hr 09/11/19 09/11/19 09/11/19 22:00 22:30 23:00 Temperature Pulse Rate 116 H 111 H 114 H Respiratory 12 13 15 Rate Blood Pressure 174/98 126/83 131/81 O2 Sat by Pulse 96 94 92 Oximetry 07/18/19 07/19/19 07/19/19 23:30 00:00 00:09 Temperature 98.2 F Pulse Rate 113 H 115 H 113 H Respiratory 15 13 Rate Blood Pressure 149/82 141/84 O2 Sat by Pulse 94 93 Oximetry 07/19/19 07/19/19 07/19/19 00:31 00:50 01:00 Temperature Pulse Rate 119 H 123 H 103 H Respiratory 15 16 Rate Blood Pressure 181/104 181/104 187/106 O2 Sat by Pulse 94 94 Oximetry 07/19/19 07/19/19 07/19/19 01:30 02:00 02:09 Temperature Pulse Rate 110 H 110 H 111 H Respiratory 15 15 Rate Blood Pressure 186/107 211/124 211/124 O2 Sat by Pulse 94 94 Oximetry 07/19/19 07/19/19 07/19/19 02:30 03:01 03:30 Temperature Pulse Rate 115 H 107 H 106 H Respiratory 13 12 11 L Rate Blood Pressure 168/93 114/61 118/60 O2 Sat by Pulse 95 91 91 Oximetry 07/19/19 07/19/19 07/19/19 04:00 04:30 05:00 Temperature 98.4 F Pulse Rate 111 H 106 H 111 H Respiratory 14 12 14 Rate Blood Pressure 149/95 131/73 142/94 O2 Sat by Pulse 93 92 95 Oximetry 07/19/19 07/19/19 07/19/19 05:31 06:00 06:33 Temperature Pulse Rate 111 H 113 H 122 H Respiratory 12 18 Rate Blood Pressure 125/75 129/80 162/90 O2 Sat by Pulse 94 Oximetry 07/19/19 08:00 Temperature 98.5 F Pulse Rate Respiratory Rate Blood Pressure O2 Sat by Pulse Oximetry - Lab 07/19/19 03:33 07/19/19 03:33 Most recent lab results Calcium 9.8 mg/dL (8.4-10.2) 07/19/19 03:33 Medications & Allergies - Medications Allergies/Adverse Reactions: Allergies cefazolin [From Ancef] Allergy (Verified 07/21/18 13:02) Vomiting shellfish derived Allergy (Verified 06/08/18 15:09) Anaphylaxis iodine Adverse Reaction (Severe, Verified 06/08/18 15:09) Vomiting IV dye Adverse Reaction (Severe, Uncoded 04/28/18 08:49) Vomiting Home Medications: Home Medications Medication Instructions Recorded Confirmed Last Taken Type Insulin Regular, Human [Novolin R] 3 - 5 unit SQ TID 06/05/19 06/08/19 06/04/19 18:00 History 3 units Calcium Acetate [Phoslo] 1,334 mg PO TIDWM capsule 06/13/19 Unknown Rx Calcium Acetate [Phoslo] 1,334 mg PO TIDWM #30 capsule 06/13/19 Unknown Rx Clonidine HCl [Catapres] 0.3 mg PO BID #60 tablet 06/13/19 Unknown Rx Insulin Glargine [Lantus VIAL] 20 units SUB-Q QHS 30 Days units 06/13/19 Unknown Rx Losartan [Cozaar] 50 mg PO QDAY #30 tablet 06/13/19 Unknown Rx amLODIPine [Norvasc] 10 mg PO DAILY tablet 06/13/19 Unknown Rx amLODIPine [Norvasc] 10 mg PO DAILY #30 tablet 06/13/19 Unknown Rx cloNIDine [Catapres] 0.3 mg PO Q12HR tablet 06/13/19 Unknown Rx hydrALAZINE [Apresoline TAB] 25 mg PO Q8HR #30 tablet 06/13/19 Unknown Rx Famotidine [Pepcid] 20 mg PO BID #30 tablet 06/23/19 Unknown Rx HYDROcodone/APAP 5-325 [Mcintyre 1 each PO Q4HR PRN #20 tablet 06/23/19 Unknown Rx 5/325] Metoclopramide [Reglan] 10 mg PO TID PRN #20 tab 06/23/19 Unknown Rx Ondansetron [Zofran Odt] 4 mg PO Q8HR PRN #20 tab.rapdis 06/23/19 Unknown Rx Active Medications: Generic Name Dose Route Start Last Admin Trade Name Freq PRN Reason Stop Dose Admin Acetaminophen 650 mg 07/17/19 19:07 Tylenol PO Q4H PRN Pain MILD(1-3)/Fever >100.5/SOARES Amlodipine Besylate 10 mg 07/17/19 20:00 07/18/19 08:00 Norvasc PO Not Given DAILY [facility] Calcium Acetate 1,334 mg 07/18/19 08:00 07/18/19 17:47 Phoslo PO Not Given TIDWM [facility] Diphenhydramine HCl 25 mg 07/17/19 21:30 07/19/19 00:50 Benadryl IV 25 mg Q6H PRN Administration Itching, sleep Famotidine 10 mg 07/17/19 22:00 07/18/19 21:26 Pepcid PO Not Given BID [facility] Hydralazine HCl 25 mg 07/17/19 22:00 07/19/19 06:28 Apresoline PO Not Given Q8HR [facility] Hydralazine HCl 20 mg 07/18/19 11:10 07/19/19 02:09 Apresoline IV 20 mg Q4HR PRN Administration SBP>170 or DBP>110 Hydromorphone HCl 0.5 mg 07/17/19 19:03 07/19/19 00:50 Dilaudid IV 0.5 mg Q3H PRN Administration Pain , Severe (7-10) Heparin Sodium/Sodium Chloride 25,000 unit in 500 mls @ 20 mls/hr 07/18/19 03:00 07/19/19 07:00 Heparin/ 0.45% Nacl-25,000 Unit/500 Ml IV 1,350 units/hr TITRATE SANDRINE 27 mls/hr Titration Protocol 1,000 UNITS/HR Insulin Glargine 20 units 07/17/19 22:00 07/18/19 21:52 Lantus SUB-Q 20 units QHS [facility] Administration Insulin Human Lispro 0 unit 07/17/19 20:00 07/19/19 06:25 Humalog SUB-Q Not Given Q6HR [facility] Protocol Insulin Human Regular 5 units 07/18/19 07:30 07/18/19 18:36 Humulin R SUB-Q 5 units AC [facility] Administration Losartan Potassium 50 mg 07/17/19 20:00 07/18/19 10:00 Cozaar PO Not Given QDAY [facility] Metoclopramide HCl 5 mg 07/18/19 11:00 Reglan IV Q6H PRN Nausea And Vomiting Metoclopramide HCl 2.5 mg 07/18/19 16:30 07/18/19 21:26 Reglan IV 2.5 mg ACHS SANDRINE Administration Metoprolol Tartrate 5 mg 07/18/19 12:00 07/19/19 06:33 Lopressor IV 5 mg Q6HR SANDRINE Administration Morphine Sulfate 2 mg 07/18/19 08:08 07/18/19 18:31 Morphine IV 2 mg Q4H PRN Administration Chest Pain Ondansetron HCl 4 mg 07/17/19 18:52 Zofran Odt PO Q8HR PRN Nausea And Vomiting Ondansetron HCl 4 mg 07/17/19 19:07 07/17/19 21:20 Zofran IV 4 mg Q3H PRN Administration Nausea And Vomiting Oxycodone/Acetaminophen 1 tab 07/17/19 18:59 Percocet 5/325 PO Q6H PRN Pain, Moderate (4-6) Sodium Chloride 10 ml 07/17/19 22:00 07/18/19 21:27 Sodium Chloride Flush Syringe 10 Ml IV 10 ml BID SANDRINE Administration Sodium Chloride 10 ml 07/17/19 19:07 Sodium Chloride Flush Syringe 10 Ml IV PRN PRN LINE FLUSH
[2019-07-19] MEDS ORDERED: NACL 0.9% 100 ML IV PRN (09:57)
[2019-07-19] MEDS: REGLAN IV SCH ×4 (09:57→22:42)
[2019-07-19] MEDS: HumuLIN R SUB-Q SCH ×3 (09:57→18:57)
[2019-07-19] MEDS: COZAAR PO SCH (09:58)
[2019-07-19] MEDS: PHOSLO PO SCH ×3 (09:58→18:57)
[2019-07-19] MEDS: SODIUM CHLORIDE FLUSH SYRINGE 10 ML IV SCH ×2 (09:59→22:44)
[2019-07-19] MEDS: PEPCID PO SCH ×2 (09:59→22:42)
[2019-07-19] MEDS: NORVASC PO SCH (09:59)
--- NOTE | 2019-07-19 13:15 | Progress Note ---
Assessment and Plan Severe gastroparesis End-stage renal disease on hemodialysis Hypertension, uncontrolled Diabetes Chronic elevated troponin cardiac cath 04/2015 documents no significant CAD. no ischemia on MPI 11/2017. normal perfusion MPI 01/2019. left ventricle systolic function was normal with ejection fraction 60% on an echocardiogram 07/2018. Patient unable to tolerate oral medications due to severe gastroparesis. We will add intravenous Labetalol as needed for optimal blood pressure management. Subjective Date of service: 07/19/19 Interval history: Blood pressure of 172/107. Mildly tachycardic on telemetry. No cardiac complaints. Objective Vital Signs Temp Pulse Pulse Resp BP Pulse Ox 07/19/19 12:56 114 H 172/107 07/19/19 12:55 114 H 172/107 07/19/19 12:00 98.1 F 114 H 07/19/19 09:59 112 H 144/78 07/19/19 09:58 109 H 144/78 07/19/19 08:00 98.5 F 102 H 07/19/19 06:33 122 H 162/90 07/19/19 06:00 113 H 18 129/80 07/19/19 05:31 111 H 12 125/75 94 07/19/19 05:00 111 H 14 142/94 95 07/19/19 04:30 106 H 12 131/73 92 07/19/19 04:00 98.4 F 111 H 14 149/95 93 07/19/19 03:30 106 H 11 L 118/60 91 07/19/19 03:01 107 H 12 114/61 91 07/19/19 02:30 115 H 13 168/93 95 07/19/19 02:09 111 H 211/124 07/19/19 02:00 110 H 15 211/124 94 07/19/19 01:30 110 H 15 186/107 94 07/19/19 01:00 103 H 16 187/106 94 07/19/19 00:50 123 H 181/104 07/19/19 00:31 119 H 15 181/104 94 07/19/19 00:09 113 H 07/19/19 00:00 98.2 F 115 H 13 141/84 93 07/18/19 23:30 113 H 15 149/82 94 07/18/19 23:00 114 H 15 131/81 92 07/18/19 22:30 111 H 13 126/83 94 07/18/19 22:00 116 H 12 174/98 96 07/18/19 21:31 139/84 07/18/19 21:00 158/82 07/18/19 20:31 109 H 163/92 07/18/19 20:00 98.6 F 163/92 07/18/19 19:31 209/116 98 07/18/19 19:01 123 H 22 191/92 97 07/18/19 18:44 114 H 201/115 07/18/19 18:31 115 H 14 137/81 99 07/18/19 18:00 113 H 21 209/116 94 07/18/19 17:31 123 H 137/81 99 07/18/19 17:27 125 H 137/81 07/18/19 17:11 121 H 137/81 07/18/19 17:09 112 H 20 96 07/18/19 17:00 111 H 137/81 07/18/19 16:51 109 H 189/105 95 07/18/19 16:41 109 H 189/105 97 07/18/19 16:31 115 H 189/105 99 07/18/19 16:21 118 H 189/105 99 07/18/19 16:11 116 H 207/113 98 07/18/19 16:00 98.3 F 114 H 207/113 98 07/18/19 15:51 113 H 228/121 98 07/18/19 15:41 115 H 228/121 99 07/18/19 15:31 109 H 228/121 98 07/18/19 15:21 109 H 228/121 100 07/18/19 15:18 110 H 228/121 07/18/19 15:11 111 H 228/121 100 07/18/19 15:00 110 H 228/121 99 07/18/19 14:51 123 H 169/95 97 07/18/19 14:41 126 H 169/95 98 07/18/19 14:31 111 H 169/95 99 07/18/19 14:21 109 H 169/95 99 07/18/19 14:11 110 H 169/95 100 07/18/19 14:00 111 H 222/120 97 07/18/19 13:51 111 H 169/95 100 07/18/19 13:41 111 H 15 169/95 100 07/18/19 13:31 111 H 15 169/95 100 07/18/19 13:28 97.3 F L 07/18/19 13:21 110 H 11 L 169/95 100 - Physical Examination General: No Apparent Distress HEENT: Positive: PERRL Cardiac: Positive: Tachycardia Neuro: Positive: Grossly Intact - Labs and Meds CBC 07/19/19 Range/Units 03:33 WBC 17.1 H (4.5-11.0) K/mm3 RBC 4.01 (3.65-5.03) M/mm3 Hgb 12.3 (11.8-15.2) gm/dl Hct 39.1 (35.5-45.6) % Plt Count 183 (140-440) K/mm3 Comprehensive Metabolic Panel 07/19/19 Range/Units 03:33 Sodium 148 H (137-145) mmol/L Potassium 5.5 H (3.6-5.0) mmol/L Chloride 100.9 (98-107) mmol/L Carbon Dioxide 25 (22-30) mmol/L BUN 50 H (9-20) mg/dL Creatinine 14.3 H (0.8-1.5) mg/dL Glucose 177 H (75-100) mg/dL Calcium 9.8 (8.4-10.2) mg/dL - Imaging and Cardiology EKG: report reviewed (sinus tachycardia heart rate of 1 12/m probable left atrial enlargement)
[2019-07-19] MEDS ORDERED: NORMODYNE IV PRN (13:16)
[2019-07-19 15:46] LABS: Hepatitis C Virus Antibody Non-Reactive (NonReactive)
[2019-07-19 16:32] LABS: Hepatitis B Surface Antigen Non-Reactive (Negative)
[2019-07-19] MEDS ORDERED: NACL 0.9 (PRIMING MACHINE ONLY DIALYSIS) MC ONE (17:00)
[2019-07-19] MEDS: LANTUS SUB-Q SCH (22:50)
[2019-07-20 05:32] LABS: Hematocrit 38.5 % (35.5-45.6); Hemoglobin 12.1 gm/dl (11.8-15.2); Mean Corpuscular HGB Conc 31 % (32-34); Mean Corpuscular Volume 96 fl (84-94); Platelet Count 163 K/mm3 (140-440); Red Cell Distribution Width 18.6 % (13.2-15.2)
[2019-07-20 05:52] LABS: Calcium 8.7 mg/dL (8.4-10.2)
[2019-07-20] MEDS ORDERED: HEPARIN IV ONE ×4 (06:11→07:00)
[2019-07-20] MEDS: APRESOLINE PO SCH (06:39)
[2019-07-20] MEDS ORDERED: HEPARIN 10,000 UNITS/10 ML IV ONE (07:00)
[2019-07-20] MEDS: HumaLOG SUB-Q SCH ×3 (08:57→13:21)
[2019-07-20] MEDS: PHOSLO PO SCH ×2 (08:58→13:20)
[2019-07-20] MEDS: REGLAN IV SCH ×2 (08:58→13:21)
[2019-07-20] MEDS: HumuLIN R SUB-Q SCH ×3 (08:58→13:23)
[2019-07-20] MEDS: COZAAR PO SCH (10:41)
[2019-07-20] MEDS: NORVASC PO SCH (10:42)
[2019-07-20] MEDS: SODIUM CHLORIDE FLUSH SYRINGE 10 ML IV SCH (10:43)
[2019-07-20] MEDS: PEPCID PO SCH (10:43)
[2019-07-20 10:50] VITALS: BP 105/67
--- NOTE | 2019-07-20 12:00 | Progress Note ---
Subjective Interval history: Patient was seen today for follow-up on multiple renal related issues has had hemodialysis yesterday Feeling much better today Nausea vomiting improving Interdisciplinary notes were also reviewed Vitals intake output medications were reviewed Past medical history: Reviewed Family, social history: Reviewed Allergies: Reviewed Physical examination General: No acute distress Vitals: Reviewed HEENT: Oral mucosa moist no icterus Neck: Supple no thyromegaly nodular mass or JVD Chest: Clear to auscultation anteriorly Heart: Regular rate and rhythm S1-S2 heard no S3-S4 Abdomen: Soft nontender no suprapubic masses no organomegaly Extremity: Dry skin no edema Psych: No evidence of any agitation and aggression noted Derm: No petechial rash Assessment and plan: End-stage renal disease: Currently on hemodialysis Tuesday here Outpatient dialysis days are Tuesday and Tuesday nausea vomiting chest pain likely due to Diabetes with gastroparesis Suggest avoiding hydralazine with tachycardia Would like to increase his clonidine to 0.4 for now cardiology is also following Patient does exhibit good understanding of the renal related issues We'll continue to follow and make recommendation from renal standpoint Objective - Vital Signs Vital signs: Vital Signs - 12hr 07/20/19 07/20/19 07/20/19 00:44 04:00 05:27 Temperature 99.7 F H 99.3 F Pulse Rate 108 H 108 H 109 H Respiratory 20 18 Rate Blood Pressure 86/40 111/67 O2 Sat by Pulse 96 92 Oximetry 07/20/19 07/20/19 07/20/19 06:39 10:00 10:41 Temperature Pulse Rate 103 H 103 H Respiratory Rate Blood Pressure 108/59 105/67 O2 Sat by Pulse 94 Oximetry 07/20/19 10:42 Temperature Pulse Rate 103 H Respiratory Rate Blood Pressure 105/67 O2 Sat by Pulse Oximetry - Lab 07/20/19 04:53 07/20/19 04:53 Most recent lab results Calcium 8.7 mg/dL (8.4-10.2) 07/20/19 04:53 Medications & Allergies - Medications Allergies/Adverse Reactions: Allergies cefazolin [From [facility]] Allergy (Verified 07/21/18 13:02) Vomiting shellfish derived Allergy (Verified 06/08/18 15:09) Anaphylaxis iodine Adverse Reaction (Severe, Verified 06/08/18 15:09) Vomiting IV dye Adverse Reaction (Severe, Uncoded 04/28/18 08:49) Vomiting Home Medications: Home Medications Medication Instructions Recorded Confirmed Last Taken Type Insulin Regular, Human [Novolin R] 3 - 5 unit SQ TID 06/05/19 07/20/19 07/20/19 History Calcium Acetate [Phoslo] 1,334 mg PO TIDWM capsule 06/13/19 07/20/19 Unknown Rx Calcium Acetate [Phoslo] 1,334 mg PO TIDWM #30 capsule 06/13/19 07/20/19 07/20/19 Rx Clonidine HCl [Catapres] 0.3 mg PO BID #60 tablet 06/13/19 07/20/19 07/18/19 Rx Insulin Glargine [Lantus VIAL] 20 units SUB-Q QHS 30 Days units 06/13/19 07/20/19 07/20/19 Rx Losartan [Cozaar] 50 mg PO QDAY #30 tablet 06/13/19 07/20/19 07/19/19 Rx amLODIPine [Norvasc] 10 mg PO DAILY tablet 06/13/19 07/20/19 07/16/19 Rx amLODIPine [Norvasc] 10 mg PO DAILY #30 tablet 06/13/19 07/20/19 07/20/19 Rx cloNIDine [Catapres] 0.3 mg PO Q12HR tablet 06/13/19 07/20/19 07/16/19 Rx hydrALAZINE [Apresoline TAB] 25 mg PO Q8HR #30 tablet 06/13/19 07/20/19 07/16/19 Rx Famotidine [Pepcid] 20 mg PO BID #30 tablet 06/23/19 07/20/19 07/20/19 Rx HYDROcodone/APAP 5-325 [[place] 1 each PO Q4HR PRN #20 tablet 06/23/19 07/20/19 07/18/19 Rx 5-325 mg TAB] Metoclopramide [Reglan TAB] 10 mg PO TID PRN #20 tab 06/23/19 07/20/19 07/19/19 Rx Active Medications: Generic Name Dose Route Start Last Admin Trade Name Freq PRN Reason Stop Dose Admin Acetaminophen 650 mg 07/17/19 19:07 Tylenol PO Q4H PRN Pain MILD(1-3)/Fever >100.5/SOARES Amlodipine Besylate 10 mg 07/17/19 20:00 07/20/19 10:42 Norvasc PO Not Given DAILY [facility] Calcium Acetate 1,334 mg 07/18/19 08:00 07/20/19 08:58 Phoslo PO Not Given TIDWM [facility] Clonidine HCl 0.1 mg 07/19/19 13:00 07/19/19 12:56 Catapres-Tts Patch TD Not Given Th@1000 [facility] Clonidine HCl 0.3 mg 07/19/19 13:00 07/19/19 12:55 Catapres-Tts Patch TD 0.3 mg Th@1000 SANDRINE Administration Diphenhydramine HCl 25 mg 07/17/19 21:30 07/19/19 00:50 Benadryl IV 25 mg Q6H PRN Administration Itching, sleep Famotidine 10 mg 07/17/19 22:00 07/20/19 10:43 Pepcid PO 10 mg BID SANDRINE Administration Hydralazine HCl 25 mg 07/17/19 22:00 07/20/19 06:39 Apresoline PO Not Given Q8HR [facility] Hydralazine HCl 20 mg 07/18/19 11:10 07/19/19 02:09 Apresoline IV 20 mg Q4HR PRN Administration SBP>170 or DBP>110 Hydromorphone HCl 0.5 mg 07/17/19 19:03 07/19/19 00:50 Dilaudid IV 0.5 mg Q3H PRN Administration Pain , Severe (7-10) Heparin Sodium/Sodium Chloride 25,000 unit in 500 mls @ 20 mls/hr 07/18/19 03:00 07/20/19 07:00 Heparin/ 0.45% Nacl-25,000 Unit/500 Ml IV 1,450 units/hr TITRATE SANDRINE 29 mls/hr Titration Protocol 1,000 UNITS/HR Sodium Chloride 100 mls @ 999 mls/hr 07/19/19 09:57 Nacl 0.9% IV MARI PRN Hypotension Insulin Glargine 20 units 07/17/19 22:00 07/19/19 22:50 Lantus SUB-Q 20 units QHS SANDRINE Administration Insulin Human Lispro 0 unit 07/17/19 20:00 07/20/19 08:57 Humalog SUB-Q Not Given Q6HR [facility] Protocol Insulin Human Regular 5 units 07/18/19 07:30 07/20/19 08:58 Humulin R SUB-Q Not Given AC [facility] Labetalol HCl 20 mg 07/19/19 13:16 Normodyne IV Q4H PRN Systolic BP greater than 150 Losartan Potassium 50 mg 07/17/19 20:00 07/20/19 10:41 Cozaar PO Not Given QDAY [facility] Metoclopramide HCl 5 mg 07/18/19 11:00 Reglan IV Q6H PRN Nausea And Vomiting Metoclopramide HCl 2.5 mg 07/18/19 16:30 07/20/19 08:58 Reglan IV Not Given ACHS [facility] Morphine Sulfate 2 mg 07/18/19 08:08 07/18/19 18:31 Morphine IV 2 mg Q4H PRN Administration Chest Pain Ondansetron HCl 4 mg 07/17/19 18:52 Zofran Odt PO Q8HR PRN Nausea And Vomiting Ondansetron HCl 4 mg 07/17/19 19:07 07/17/19 21:20 Zofran IV 4 mg Q3H PRN Administration Nausea And Vomiting Oxycodone/Acetaminophen 1 tab 07/17/19 18:59 Percocet 5/325 PO Q6H PRN Pain, Moderate (4-6) Sodium Chloride 10 ml 07/17/19 22:00 07/20/19 10:43 Sodium Chloride Flush Syringe 10 Ml IV 10 ml BID SANDRINE Administration Sodium Chloride 10 ml 07/17/19 19:07 Sodium Chloride Flush Syringe 10 Ml IV PRN PRN LINE FLUSH
--- NOTE | 2019-07-20 12:02 | Progress Note ---
Assessment and Plan Severe gastroparesis End-stage renal disease on hemodialysis Hypertension, uncontrolled Diabetes Chronic elevated troponin cardiac cath 04/2015 documents no significant CAD. no ischemia on MPI 11/2017. normal perfusion MPI 01/2019. left ventricle systolic function was normal with ejection fraction 60% on an echocardiogram 07/2018. Reflex sinus tachycardia Recommend: Discontinue IV heparin, patient has chronic elevated troponin. We will change to subcutaneous heparin instead. Otherwise, conservative cardiac management. Once patient is discharged, he will follow up with [facility], at 3 pm. Subjective Date of service: 07/20/19 Interval history: Patient has no cardiac complaints. Tolerating oral medications. BP currently 105/67. Objective Vital Signs Temp Pulse Resp BP Pulse Ox Pulse Ox 07/20/19 10:42 103 H 105/67 07/20/19 10:41 103 H 105/67 07/20/19 10:00 94 07/20/19 06:39 103 H 108/59 07/20/19 05:27 99.3 F 109 H 18 111/67 92 07/20/19 04:00 108 H 07/20/19 00:44 99.7 F H 108 H 20 86/40 96 07/20/19 00:00 108 H 07/19/19 22:43 111 H 104/61 07/19/19 22:00 92 07/19/19 21:00 16 98 07/19/19 20:00 112 H 07/19/19 19:51 98.0 F 111 H 20 114/70 98 07/19/19 19:27 112 H 103/63 07/19/19 19:04 18 103/63 07/19/19 18:05 98.0 F 109 H 18 119/60 07/19/19 17:40 108 H 110/62 07/19/19 17:30 110 H 105/62 07/19/19 17:15 111 H 121/66 07/19/19 17:00 109 H 120/61 07/19/19 16:45 110 H 117/60 07/19/19 16:30 84 16 142/46 98 07/19/19 16:21 79 13 141/57 100 07/19/19 16:15 106 H 119/50 07/19/19 16:11 81 14 120/32 98 07/19/19 16:01 83 19 81/54 92 07/19/19 16:00 108 H 119/61 07/19/19 15:51 84 16 198/119 95 07/19/19 15:45 104 H 103/58 07/19/19 15:41 85 18 119/20 88 07/19/19 15:31 84 19 119/20 95 07/19/19 15:30 108 H 115/57 07/19/19 15:21 84 198/119 07/19/19 15:15 104 H 114/56 07/19/19 15:00 110 H 100/57 07/19/19 14:45 110 H 112/55 07/19/19 14:30 102 H 133/73 07/19/19 14:15 100 H 140/82 07/19/19 14:08 104 H 165/86 07/19/19 13:51 99.2 F 106 H 20 167/99 94 07/19/19 13:11 102 H 15 198/119 97 07/19/19 13:01 118 H 13 198/119 97 07/19/19 13:00 15 93 07/19/19 12:56 114 H 172/107 07/19/19 12:55 114 H 172/107 07/19/19 12:51 115 H 14 172/107 97 07/19/19 12:41 108 H 12 172/107 94 07/19/19 12:31 109 H 13 172/107 93 07/19/19 12:21 111 H 13 158/104 96 07/19/19 12:11 113 H 13 158/104 95 - Physical Examination General: No Apparent Distress HEENT: Positive: PERRL Cardiac: Positive: Tachycardia Lungs: Positive: Decreased Breath Sounds Neuro: Positive: Grossly Intact - Labs and Meds CBC 07/20/19 Range/Units 04:53 WBC 12.3 H (4.5-11.0) K/mm3 RBC 4.00 (3.65-5.03) M/mm3 Hgb 12.1 (11.8-15.2) gm/dl Hct 38.5 (35.5-45.6) % Plt Count 163 (140-440) K/mm3 Comprehensive Metabolic Panel 07/20/19 Range/Units 04:53 Sodium 138 D (137-145) mmol/L Potassium 3.5 L D (3.6-5.0) mmol/L Chloride 90.7 L (98-107) mmol/L Carbon Dioxide 29 (22-30) mmol/L BUN 23 H (9-20) mg/dL Creatinine 9.1 H (0.8-1.5) mg/dL Glucose 172 H (75-100) mg/dL Calcium 8.7 (8.4-10.2) mg/dL
--- NOTE | 2019-07-20 16:09 | Discharge Summary ---
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 2.Follow up with [facility] in 1 week. 3.Continue Routine hemodialysis as scheduled Follow up with: DANE GONZALEZ MD [Referring] - 3-5 Days
[2019-07-20] MEDS ORDERED: HEPARIN SUB-Q SCH (22:00)
== END 2019-07-20 17:57 | disposition home or self-care (01) | DRG 73 ==
LOC: ED 04:13 → 3A 14:12 → IMCU 07-18 12:08 → OBSVTOIN 07-19 10:00 → 4A 07-19 13:54
PROVIDERS: ADMIT Internal Medicine; ATTEND Internal Medicine
PROC: 5A1D70Z Performance of Urinary Filtration, Intermittent, Less than 6 Hours Per Day (ICD-10-PCS; principal; 2019-07-19)
DX: E11.43 Type 2 diabetes mellitus with diabetic autonomic (poly)neuropathy (principal); N18.6 End stage renal disease; I12.0 Hypertensive chronic kidney disease with stage 5 chronic kidney disease or end stage renal disease; N25.81 Secondary hyperparathyroidism of renal origin; K31.84 Gastroparesis; E11.22 Type 2 diabetes mellitus with diabetic chronic kidney disease; K21.0 Gastro-esophageal reflux disease with esophagitis; I25.10 Atherosclerotic heart disease of native coronary artery without angina pectoris; G40.909 Epilepsy, unspecified, not intractable, without status epilepticus; D63.1 Anemia in chronic kidney disease; I16.0 Hypertensive urgency; E87.5 Hyperkalemia; Z86.73 Personal history of transient ischemic attack (TIA), and cerebral infarction without residual deficits; I25.2 Old myocardial infarction; Z86.711 Personal history of pulmonary embolism; Z89.421 Acquired absence of other right toe(s); Z82.49 Family history of ischemic heart disease and other diseases of the circulatory system; Z79.899 Other long term (current) drug therapy; Z79.4 Long term (current) use of insulin; Z88.8 Allergy status to other drugs, medicaments and biological substances; Z91.041 Radiographic dye allergy status; Z91.013 Allergy to seafood
CPT/HCPCS: 36415; 71045; 80048; 80053; 80061; 80074; 80076; 82962; 83036; 83690; 84484; 85007; 85014; 85018; 85025; 85027; 85520; 85610; 85730; 93005; 93010; 94760; G0378; J0360; J1170; J1200; J1630; J1644; J1815; J2270; J2405; J2765; J7030

== ENCOUNTER 2019-08-13 11:29 | Emergency (ER) | payer MEDICARE, OTHER ==
[2019-08-13] MEDS ORDERED: NITROGLYCERIN 0.4 MG TAB SUBL SL ONE (11:56)
[2019-08-13] MEDS ORDERED: HALOPERIDOL LACTATE 5 MG/1 ML INJ IM STA (12:45)
[2019-08-13] MEDS ORDERED: FAMOTIDINE 20 MG/2 ML INJ IV ONE (12:45)
--- NOTE | 2019-08-13 12:46 | Emergency Department Report ---
<SOPHIA CLINE - Last Filed: 08/13/19 15:01> ED General Adult HPI - General Chief complaint: Chest Pain Stated complaint: CHEST PAIN Time Seen by Provider: 08/13/19 12:35 Source: patient, EMS (ems notes not available at time of chart dictation), RN notes reviewed, old records reviewed Mode of arrival: Stretcher Limitations: No Limitations - History of Present Illness Initial comments: This is a 38-year-old gentleman. I have evaluated this patient in the past. Nephrology: Dr. Méndez Past medical history: End-stage renal disease, on dialysis, Tuesday, Tuesday, Tuesday, hypertension, right upper gaston any fistula, diabetes, gastroparesis. As per review of prior cardiology documentation, had a cardiac catheterization in 2014 did not demonstrate any significant coronary artery disease, and had essentially unremarkable nuclear medicine stress tests on November 2017, and January 2019. During a recent hospitalization in July 2019, seen in conjunction with cardiology, who did not recommend additional cardiac risk stratification. The patient presents to the ER today with complaint of abdominal pain and chest pain. The abdominal pain is diffuse. The chest pain is substernal. The abdominal pain and chest pain have been present for the past 2-3 days. He endorses multiple episodes of nausea and vomiting. He thinks that the abdominal pain, nausea and vomiting started first, and was shortly followed by the chest pain. He endorses weakness. He makes no complaint of headache or neck pain. The patient reportts hospitalization last month, but otherwise, no posterior leg pain, no posterior leg swelling, and endorses an equivocal nuclear medicine study, but as far she knows, does not have an angiogram proven pulmonary embolism. He is not currently taking systemic anticoagulation at this time. He denies urinary symptoms. -: Gradual Location: chest, abdomen Severity scale (0 -10): 7 Consistency: constant Improves with: medication, rest Worsens with: movement - Related Data Home Medications Medication Instructions Recorded Confirmed Last Taken Insulin Regular, Human [Novolin R] 3 - 5 unit SQ TID 06/05/19 08/13/19 08/12/19 Previous Rx's Medication Instructions Recorded Last Taken Type Calcium Acetate [Phoslo] 1,334 mg PO TIDWM capsule 06/13/19 08/12/19 Rx Insulin Glargine [Lantus VIAL] 20 units SUB-Q QHS 30 Days units 06/13/19 08/12/19 Rx Losartan [Cozaar] 50 mg PO QDAY #30 tablet 06/13/19 08/12/19 Rx amLODIPine [Norvasc] 10 mg PO DAILY tablet 06/13/19 08/12/19 Rx cloNIDine [Catapres] 0.3 mg PO Q12HR tablet 06/13/19 08/12/19 Rx hydrALAZINE [Apresoline TAB] 25 mg PO Q8HR #30 tablet 06/13/19 08/12/19 Rx Metoclopramide [Reglan TAB] 10 mg PO TID PRN #20 tab 06/23/19 08/12/19 Rx Allergies Allergy/AdvReac Type Severity Reaction Status Date / Time cefazolin [From [facility]] Allergy Vomiting Verified 07/21/18 13:02 shellfish derived Allergy Anaphylaxis Verified 06/08/18 15:09 iodine AdvReac Severe Vomiting Verified 06/08/18 15:09 IV dye AdvReac Severe Vomiting Uncoded 04/28/18 08:49 ED Review of Systems Constitutional: malaise, weakness Eyes: denies: eye discharge ENT: denies: congestion Respiratory: denies: wheezing Cardiovascular: chest pain. denies: syncope Gastrointestinal: abdominal pain, nausea, vomiting. denies: hematemesis, m ji, hematochezia Genitourinary: denies: dysuria Musculoskeletal: denies: back pain Neurological: weakness ED Past Medical Hx - Past Medical History Previous Medical History?: Yes Hx Hypertension: Yes Hx CVA: Yes (TIA's) Hx Heart Attack/AMI: Yes Hx Congestive Heart Failure: No Hx Diabetes: Yes Hx Pulmonary Embolism: Yes Hx Renal Disease: Yes Hx Headaches / Migraines: Yes (Migraines) Hx Psychiatric Treatment: No Hx Asthma: No Hx COPD: No Additional medical history: gastroparesis, PE - Surgical History Additional Surgical History: left eye surgery, right toe amputation, right chest vas cath. GRAFT RIGHT UPPER ARM. Graft revision 06/2018 per pt - Social History Smoking Status: Unknown if ever smoked Substance Use Type: None - Medications Home Medications: Home Medications Medication Instructions Recorded Confirmed Last Taken Type Insulin Regular, Human [Novolin R] 3 - 5 unit SQ TID 06/05/19 08/13/19 08/12/19 History Calcium Acetate [Phoslo] 1,334 mg PO TIDWM capsule 06/13/19 08/13/19 08/12/19 Rx Insulin Glargine [Lantus VIAL] 20 units SUB-Q QHS 30 Days units 06/13/19 08/13/19 08/12/19 Rx Losartan [Cozaar] 50 mg PO QDAY #30 tablet 06/13/19 08/13/19 08/12/19 Rx amLODIPine [Norvasc] 10 mg PO DAILY tablet 06/13/19 08/13/19 08/12/19 Rx cloNIDine [Catapres] 0.3 mg PO Q12HR tablet 06/13/19 08/13/19 08/12/19 Rx hydrALAZINE [Apresoline TAB] 25 mg PO Q8HR #30 tablet 06/13/19 08/13/19 08/12/19 Rx Metoclopramide [Reglan TAB] 10 mg PO TID PRN #20 tab 06/23/19 08/13/19 08/12/19 Rx ED Physical Exam - General Limitations: No Limitations General appearance: alert, anxious, in distress, obese - Head Head exam: Present: atraumatic, normocephalic - Eye Eye exam: Present: normal appearance, EOMI. Absent: nystagmus - ENT ENT exam: Present: normal exam, normal orophraynx, mucous membranes moist, normal external ear exam - Neck Neck exam: Present: normal inspection, full ROM. Absent: tenderness, meningismus - Respiratory Respiratory exam: Present: normal lung sounds bilaterally. Absent: respiratory distress - Cardiovascular Cardiovascular Exam: Present: normal rhythm, tachycardia, normal heart sounds. Absent: systolic murmur, diastolic murmur, rubs, gallop - GI/Abdominal GI/Abdominal exam: Present: soft. Absent: distended, tenderness, guarding, rebound, rigid, pulsatile mass - Rectal Rectal exam: Present: deferred - Extremities Exam Extremities exam: Present: normal inspection (there is an upper extremity fistula, right-sided, with no redness, pus or streaking), full ROM, other (2+ pulses noted in the bilateral upper, lower extremities. Compartments soft. No long bony tenderness. The pelvis is stable.). Absent: calf tenderness - Back Exam Back exam: Present: normal inspection. Absent: tenderness, CVA tenderness (R), CVA tenderness (L), paraspinal tenderness, vertebral tenderness - Neurological Exam Neurological exam: Present: alert, other (Extraocular movements intact. Tongue midline. No facial droop. Facial sensation intact to light touch in the V1, V2, V3 distribution bilaterally. 5 and 5 strength in 4 extremities.. Sensation is intact to light touch in 4 extremities.) - Psychiatric Psychiatric exam: Present: normal mood, anxious - Skin Skin exam: Present: warm, dry, intact, normal color. Absent: rash ED Course - Reevaluation(s) Reevaluation #1: 08/13/19 14:19 Differential diagnosis, including not limited to: Gastroparesis, obstruction, colitis, diverticulitis, hypertensive urgency, azotemia, uremia, pneumonia, acute coronary syndrome, GERD, gastritis, pulmonary embolism Assessment and plan: 38-year-old gentleman with recurrent complaint of abdominal pain and chest pain. He is tachycardic and hypertensive. He appears uncomfortable. We will treat his symptoms with Pepcid and haloperidol. Cardiology has assessed him as having reactive tachycardia in the past. He'll be given labetalol for his tachycardia, and hypertension. Cardiology has recently recommended conservative cardiac management. His vascular risk factor profile is reviewed and appreciated, however, symptoms today appear to be similar to prior symptoms. If symptoms and vital signs can be improved, it would be reasonable to have the patient discharged to follow up with GI, cardio logy, and his musculoskeletal physiotherapist. Reevaluation #2: 08/13/19 14:23 Elevated troponin reviewed and appreciated, this is a chronic finding, this is most likely secondary to type II troponin leak, likely secondary to renal insufficiency. Anion gap acidosis is most likely secondary to renal insufficiency, as well as nausea and vomiting. Reevaluation #3: 08/13/19 14:57 X-ray of the chest was negative for acute disease. CT scan abdomen and pelvis negative for acute disease. Care which transferred to oncoming physician, Dr. Michel Hook, to follow up on repeat EKG and repeat troponin. Vital signs normalize, nausea vomiting normalized, would anticipate discharge. Reevaluation #4: 08/13/19 15:01 Still endorsing nausea and vomiting. Still tachycardic, although improved, hypertension improved. Additional pain medication ordered. - EJ/Peripheral Line Neck L Time Out Performed: Yes Indications: nurses unable to establis Skin Cleansed in Sterile Fashion: Yes Size: 20 Dressing Placed: Tegaderm Patient Tolerated Procedure: well ED Medical Decision Making - Lab Data Result diagrams: 08/13/19 12:58 08/13/19 12:58 Vital Signs 08/13/19 08/13/19 08/13/19 11:49 12:00 12:15 Temperature 98.9 F Pulse Rate 115 H 112 H Respiratory 22 20 22 Rate Blood Pressure 188/101 201/108 Blood Pressure 188/101 [Left] O2 Sat by Pulse 92 98 92 Oximetry 08/13/19 08/13/19 12:31 13:01 Temperature Pulse Rate 112 H Respiratory 21 18 Rate Blood Pressure 201/108 201/108 Blood Pressure [Left] O2 Sat by Pulse 100 99 Oximetry Lab Results 08/13/19 08/13/19 08/13/19 Range/Units 12:58 12:58 12:58 WBC 12.3 H (4.5-11.0) K/mm3 RBC 3.80 (3.65-5.03) M/mm3 Hgb 11.7 L (11.8-15.2) gm/dl Hct 35.7 (35.5-45.6) % MCV 94 (84-94) fl MCH 31 (28-32) pg MCHC 33 (32-34) % RDW 17.3 H (13.2-15.2) % Plt Count 180 (140-440) K/mm3 D-Dimer 469.59 H (0-234) ng/mlDDU Sodium 139 (137-145) mmol/L Potassium 4.2 (3.6-5.0) mmol/L Chloride 93.0 L (98-107) mmol/L Carbon Dioxide 17 L (22-30) mmol/L Anion Gap 33 mmol/L BUN 33 H (9-20) mg/dL Creatinine 12.4 H (0.8-1.5) mg/dL Estimated GFR 6 ml/min BUN/Creatinine Ratio 3 % Glucose 202 H (75-100) mg/dL Calcium 9.1 (8.4-10.2) mg/dL Magnesium (1.7-2.3) mg/dL Total Bilirubin 0.40 (0.1-1.2) mg/dL AST 15 (5-40) units/L ALT 8 (7-56) units/L Alkaline Phosphatase 73 (35-129) units/L Total Creatine Kinase (55-170) units/L Total Protein 7.6 (6.3-8.2) g/dL Albumin 4.1 (3.9-5) g/dL Albumin/Globulin Ratio 1.2 % Lipase (13-60) units/L 08/13/19 Range/Units 12:58 WBC (4.5-11.0) K/mm3 RBC (3.65-5.03) M/mm3 Hgb (11.8-15.2) gm/dl Hct (35.5-45.6) % MCV (84-94) fl MCH (28-32) pg MCHC (32-34) % RDW (13.2-15.2) % Plt Count (140-440) K/mm3 D-Dimer (0-234) ng/mlDDU Sodium (137-145) mmol/L Potassium (3.6-5.0) mmol/L Chloride (98-107) mmol/L Carbon Dioxide (22-30) mmol/L Anion Gap mmol/L BUN (9-20) mg/dL Creatinine (0.8-1.5) mg/dL Estimated GFR ml/min BUN/Creatinine Ratio % Glucose (75-100) mg/dL Calcium (8.4-10.2) mg/dL Magnesium 2.00 (1.7-2.3) mg/dL Total Bilirubin (0.1-1.2) mg/dL AST (5-40) units/L ALT (7-56) units/L Alkaline Phosphatase (35-129) units/L Total Creatine Kinase 306 H (55-170) units/L Total Protein (6.3-8.2) g/dL Albumin (3.9-5) g/dL Albumin/Globulin Ratio % Lipase 31 (13-60) units/L - EKG Data -: EKG Interpreted by [place] EKG shows normal: sinus rhythm Rate: tachycardia - EKG Data 08/13/19 14:21 This is a sinus tachycardia, 110 bpm, normal axis, QTC is 462 ms, there is atrial enlargement, there is motion artifact, the EKG is abnormal, the EKG is not consistent with ST elevation myocardial infarction, there are pseudo- normalized T waves in the lateral leads, the EKG appears to be grossly unchanged from prior EKG from July 2019. - Radiology Data Radiology results: pending ED Disposition Clinical Impression: Gastroparesis, Tachycardia Disposition: DC-01 TO HOME OR SELFCARE Condition: Stable Referrals: PRIMARY CARE, [Primary Care Provider] - 3-5 Days <ROSALVA HOOK - Last Filed: 08/13/19 17:11> ED Review of Systems ROS: Stated complaint: CHEST PAIN Other details as noted in HPI ED Course Vital Signs 08/13/19 08/13/19 08/13/19 11:49 12:00 12:15 Temperature 98.9 F Pulse Rate 115 H 112 H Respiratory 22 20 22 Rate Blood Pressure 188/101 201/108 Blood Pressure 188/101 [Left] O2 Sat by Pulse 92 98 92 Oximetry 08/13/19 08/13/19 08/13/19 12:31 13:01 14:49 Temperature Pulse Rate 112 H Respiratory 21 18 Rate Blood Pressure 201/108 201/108 201/108 Blood Pressure [Left] O2 Sat by Pulse 100 99 97 Oximetry 08/13/19 08/13/19 08/13/19 14:55 15:00 15:30 Temperature Pulse Rate 104 H 99 H 104 H Respiratory 18 15 Rate Blood Pressure 171/100 161/94 153/86 Blood Pressure [Left] O2 Sat by Pulse 97 95 Oximetry 08/13/19 08/13/19 08/13/19 16:00 16:06 16:30 Temperature Pulse Rate 103 H 199 H Respiratory 16 13 Rate Blood Pressure 159/81 164/94 163/83 Blood Pressure [Left] O2 Sat by Pulse 96 95 Oximetry ED Medical Decision Making - Lab Data Result diagrams: 08/13/19 12:58 08/13/19 12:58 Critical care attestation.: If time is entered above; I have spent that time in minutes in the direct care of this critically ill patient, excluding procedure time. ED Disposition Is pt being admited?: No Does the pt Need Aspirin: No Time of Disposition: 16:02
[2019-08-13 13:13] LABS: Hematocrit 35.7 % (35.5-45.6); Hemoglobin 11.7 gm/dl (11.8-15.2); Mean Corpuscular HGB Conc 33 % (32-34); Mean Corpuscular Volume 94 fl (84-94); Platelet Count 180 K/mm3 (140-440); Red Cell Distribution Width 17.3 % (13.2-15.2)
[2019-08-13 13:34] LABS: Albumin 4.1 g/dL (3.9-5); Calcium 9.1 mg/dL (8.4-10.2)
--- NOTE | 2019-08-13 14:30 | Cat Scan Report ---
CT ABDOMEN AND PELVIS WITHOUT CONTRAST HISTORY: Abdominal pain, nausea and vomiting for 2 days COMPARISON: 06/08/2019 TECHNIQUE: Axial CT images were obtained through the abdomen and pelvis without IV contrast. Sagittal and coronal reformatted images. All CT scans at this location are performed using CT dose reduction for ALARA by means of automated exposure control. FINDINGS: CT ABDOMEN: Lung Bases: Clear. Liver: No significant abnormality. Biliary: No significant abnormality. Spleen: No significant abnormality. Unenlarged. Pancreas: No significant abnormality. Adrenals: No significant abnormality. Kidneys: No significant abnormality. Lymphatics: No lymphadenopathy. Vasculature: No significant abnormality. Bowel/Peritoneum: No significant abnormality. No free air. No free fluid. Normal appendix. CT PELVIS: : No significant abnormality. Osseous Structures: No significant abnormality. Additional Findings: Penile pump in the left pelvis is partially imaged. No obvious abnormality. IMPRESSION: Unremarkable CT abdomen pelvis without contrast. No change since 06/08/2019. Signer Name: David Thakur Jr, MD Signed: 08/13/2019 2:26 PM Workstation Name: [id number]
[2019-08-13 14:34] LABS: Chol/HDL Ratio 4.71 %
[2019-08-13] MEDS ORDERED: SODIUM CHLORIDE 0.9% 250ML 250 ML IV ONE (15:00)
[2019-08-13] MEDS ORDERED: METOCLOPRAMIDE 10 MG/2 ML INJ IV ONE (15:00)
--- NOTE | 2019-08-13 15:07 | XRay Report ---
CHEST 1 VIEW INDICATION: Chest pain, cough, nausea and vomiting. COMPARISON: 07/17/2019 FINDINGS: Support devices: None. Heart: Within normal limits. Lungs/Pleura: No acute air space or interstitial disease. Additional findings: None. IMPRESSION: No acute findings. Signer Name: David Thakur Jr, MD Signed: 08/13/2019 3:02 PM Workstation Name: [id number]
--- NOTE | 2019-08-13 15:09 | Nuclear Medicine Report ---
VENTILATION PERFUSION PULMONARY SCINTIGRAPHY HISTORY: Chest pain, tachycardia, nausea and vomiting COMPARISON: 08/13/2019 chest radiograph. TECHNIQUE: Radiopharmaceutical was inhaled. Tc-99m-MAA was then injected. Ventilation and perfusion images were acquired. RADIOPHARMACEUTICAL: 25.1 mCi of Xe-133 inhaled 4.7 mCi of Tc-99m-MAA injected FINDINGS: VENTILATION: No significant air trapping or defect. PERFUSION: No significant segmental or non-segmental defect. Additional Findings: None. IMPRESSION: 1. Low probability for pulmonary embolism. Signer Name: David Thakur Jr, MD Signed: 08/13/2019 3:04 PM Workstation Name: [id number]
[2019-08-13] MEDS ORDERED: HALOPERIDOL LACTATE 5 MG/1 ML INJ IM ONE (16:22)
[2019-08-13 19:11] VITALS: BP 159/58
== END 2019-08-13 19:10 | disposition home or self-care (01) ==
LOC: ED 11:29
DX: E11.43 Type 2 diabetes mellitus with diabetic autonomic (poly)neuropathy (principal); R00.0 Tachycardia, unspecified; K31.84 Gastroparesis; I10 Essential (primary) hypertension; Z86.73 Personal history of transient ischemic attack (TIA), and cerebral infarction without residual deficits; I25.2 Old myocardial infarction; G43.909 Migraine, unspecified, not intractable, without status migrainosus; Z79.899 Other long term (current) drug therapy; Z79.4 Long term (current) use of insulin; Z88.1 Allergy status to other antibiotic agents; Z91.041 Radiographic dye allergy status; Z91.013 Allergy to seafood
CPT/HCPCS: 36415; 71045; 74176; 78582; 80053; 80061; 82550; 83690; 83735; 84484; 85027; 85379; 93005; 93010; 96361; 96372; 96374; 96375; 99285; A9540; A9558; J1630; J2765; J7050

== ENCOUNTER 2019-09-26 07:18 | Inpatient (IN) | payer MEDICARE, OTHER ==
--- NOTE | 2019-09-26 07:28 | Emergency Department Report ---
ED Shortness of Breath HPI - General Stated Complaint: SOB Time Seen by Provider: 09/26/19 07:22 Source: patient, EMS Mode of arrival: Stretcher Limitations: No Limitations - History of Present Illness Initial Comments: Patient is a 38-year-old male who presents emergency room with complaints of shortness of breath. Patient states she was having dialysis became acutely short of breath. Patient states his shortness of breath is better with rest and worse with exertion. Patient denies fever and chills. Patient denies cough. Patient brought in by EMS. EMS states that they picked him up from dialysis and gave her breathing to is a felt that his lungs were tight. Patient never hypoxic. No other treatment given except for patient placed on oxygen.. MD Complaint: shortness of breath -: Sudden Severity: severe Consistency: constant Improves With: oxygen, rest, bronchodilators Worsens With: exertion Known History Of: diabetes, other Treatments Prior to Arrival: oxygen, bronchodilator - Related Data Home Oxygen Therapy: No Home Medications Medication Instructions Recorded Confirmed Last Taken Insulin Regular, Human [Novolin R] 3 - 5 unit SQ TID 06/05/19 08/13/19 08/12/19 Previous Rx's Medication Instructions Recorded Last Taken Type Calcium Acetate [Phoslo] 1,334 mg PO TIDWM capsule 06/13/19 08/12/19 Rx Insulin Glargine [Lantus VIAL] 20 units SUB-Q QHS 30 Days units 06/13/19 08/12/19 Rx Losartan [Cozaar] 50 mg PO QDAY #30 tablet 06/13/19 08/12/19 Rx amLODIPine 10 mg PO DAILY tablet 06/13/19 08/12/19 Rx cloNIDine [Catapres] 0.3 mg PO Q12HR tablet 06/13/19 08/12/19 Rx hydrALAZINE [Apresoline TAB] 25 mg PO Q8HR #30 tablet 06/13/19 08/12/19 Rx Metoclopramide [Reglan TAB] 10 mg PO TID PRN #20 tab 06/23/19 08/12/19 Rx Dicyclomine [Bentyl] 20 mg PO QID PRN #20 tablet 08/13/19 Unknown Rx Metoclopramide [Reglan] 10 mg PO TID PRN #20 tab 08/13/19 Unknown Rx Allergies Allergy/AdvReac Type Severity Reaction Status Date / Time cefazolin [From [facility]] Allergy Vomiting Verified 07/21/18 13:02 shellfish derived Allergy Anaphylaxis Verified 06/08/18 15:09 iodine AdvReac Severe Vomiting Verified 06/08/18 15:09 IV dye AdvReac Severe Vomiting Uncoded 04/28/18 08:49 ED Review of Systems ROS: Stated complaint: SOB Other details as noted in HPI Constitutional: denies: chills, fever Eyes: denies: eye pain, eye discharge, vision change ENT: denies: ear pain, throat pain Respiratory: shortness of breath. denies: cough, wheezing Cardiovascular: denies: chest pain, palpitations Endocrine: no symptoms reported Gastrointestinal: denies: abdominal pain, nausea, diarrhea Genitourinary: denies: urgency, dysuria Musculoskeletal: denies: back pain, joint swelling, arthralgia Skin: denies: rash, lesions Neurological: denies: headache, weakness, paresthesias Psychiatric: denies: anxiety, depression Hematological/Lymphatic: denies: easy bleeding, easy bruising ED Past Medical Hx - Past Medical History Previous Medical History?: Yes Hx Hypertension: Yes Hx CVA: Yes (TIA's) Hx Heart Attack/AMI: Yes Hx Congestive Heart Failure: No Hx Diabetes: Yes Hx Pulmonary Embolism: Yes Hx Renal Disease: Yes Hx Headaches / Migraines: Yes (Migraines) Hx Psychiatric Treatment: No Hx Asthma: No Hx COPD: No Additional medical history: gastroparesis, PE - Surgical History Past Surgical History?: Yes Additional Surgical History: left eye surgery, right toe amputation, right chest vas cath. GRAFT RIGHT UPPER ARM. Graft revision 06/2018 per pt - Family History Family history: no significant - Social History Smoking Status: Former Smoker Substance Use Type: None - Medications Home Medications: Home Medications Medication Instructions Recorded Confirmed Last Taken Type Insulin Regular, Human [Novolin R] 3 - 5 unit SQ TID 06/05/19 08/13/19 08/12/19 History Calcium Acetate [Phoslo] 1,334 mg PO TIDWM capsule 06/13/19 08/13/19 08/12/19 Rx Insulin Glargine [Lantus VIAL] 20 units SUB-Q QHS 30 Days units 06/13/19 08/13/19 08/12/19 Rx Losartan [Cozaar] 50 mg PO QDAY #30 tablet 06/13/19 08/13/19 08/12/19 Rx amLODIPine 10 mg PO DAILY tablet 06/13/19 08/13/19 08/12/19 Rx cloNIDine [Catapres] 0.3 mg PO Q12HR tablet 06/13/19 08/13/19 08/12/19 Rx hydrALAZINE [Apresoline TAB] 25 mg PO Q8HR #30 tablet 06/13/19 08/13/19 08/12/19 Rx Metoclopramide [Reglan TAB] 10 mg PO TID PRN #20 tab 06/23/19 08/13/19 08/12/19 Rx Dicyclomine [Bentyl] 20 mg PO QID PRN #20 tablet 08/13/19 Unknown Rx Metoclopramide [Reglan] 10 mg PO TID PRN #20 tab 08/13/19 Unknown Rx ED Physical Exam - General Limitations: No Limitations General appearance: alert, in distress - Head Head exam: Present: atraumatic, normocephalic - Eye Eye exam: Present: normal appearance - ENT ENT exam: Present: mucous membranes moist - Neck Neck exam: Present: normal inspection - Respiratory Respiratory exam: Present: normal lung sounds bilaterally, respiratory distress, decreased breath sounds - Cardiovascular Cardiovascular Exam: Present: regular rate, normal rhythm. Absent: systolic murmur, diastolic murmur, rubs, gallop - GI/Abdominal GI/Abdominal exam: Present: soft, normal bowel sounds - Rectal Rectal exam: Present: deferred - Extremities Exam Extremities exam: Present: normal inspection - Back Exam Back exam: Present: normal inspection - Neurological Exam Neurological exam: Present: alert, oriented X3 - Psychiatric Psychiatric exam: Present: normal affect, normal mood - Skin Skin exam: Present: warm, dry, intact, normal color. Absent: rash ED Course Vital Signs 09/26/19 09/26/19 09/26/19 07:48 07:52 10:30 Temperature 98.7 F 98.7 F Pulse Rate 125 H 125 H 102 H Respiratory 17 17 22 Rate Blood Pressure 165/98 138/74 Blood Pressure 165/98 156/89 [Left] O2 Sat by Pulse 93 93 94 Oximetry 09/26/19 09/26/19 09/26/19 11:00 11:30 12:19 Temperature Pulse Rate 100 H 100 H 102 H Respiratory 19 19 18 Rate Blood Pressure 156/90 169/96 Blood Pressure 143/108 [Left] O2 Sat by Pulse 95 95 83 L Oximetry 09/26/19 09/26/19 09/26/19 12:30 13:00 13:30 Temperature Pulse Rate 101 H 99 H 93 H Respiratory 12 18 15 Rate Blood Pressure 160/90 177/102 168/95 Blood Pressure [Left] O2 Sat by Pulse 90 97 99 Oximetry - Reevaluation(s) Reevaluation #1: I discussed all results with patient I discussed plan of care with patient. Patient agrees plan of care and admission. Patient will be admitted to the hospitalist service. 09/26/19 09:53 Reevaluation #2: Patient brought to be mildly hypoxic at 93. Patient's O2 increased. Patient placed on a DK protocol. Patient given fluids. 09/26/19 10:13 - Consultations Consultation #1: Hospitalist consultation for admission. Hospitalist admit patient. Bridge orders place. 09/26/19 09:45 Consultation #2: Patient's data typist consult. 09/26/19 10:13 ED Medical Decision Making - Lab Data Result diagrams: 09/26/19 07:30 09/26/19 13:01 - EKG Data -: EKG Interpreted by [facility] EKG shows normal: sinus rhythm, axis, intervals, QRS complexes, ST-T waves Rate: tachycardia - Radiology Data Radiology results: report reviewed, image reviewed CHEST 1 VIEW INDICATION / CLINICAL INFORMATION: Dyspnea. COMPARISON: Chest radiograph 08/13/2019 FINDINGS: SUPPORT DEVICES: None. HEART / MEDIASTINUM: Stable. LUNGS / PLEURA: Interval development of diffuse patchy airspace opacities throughout both lungs, most conspicuous at the left lung base. No definite pleural effusion. No pneumothorax. ADDITIONAL FINDINGS: No acute skeletal abnormality. Right axillary/brachial vascular stent grafts are noted. IMPRESSION: 1. Patchy airspace opacities throughout both lungs are concerning for multifocal pneumonia, with mild alveolar edema or pulmonary hemorrhage felt less likely. - Medical Decision Making Patient is a 38-year-old male the patient's marginal complaints of shortness of breath. Patient's shortness of breath started this morning. Patient brought in by EMS. Patient was given albuterol patient seizing on initial evaluation. Patient found to have bilateral pneumonia. Patient given antibiotics and fluids in the ER. Patient admitted to the hospitalist service. Labs consistent with elevated WBC and end-stage renal disease and DKA. Patient placed on a DK protocol. Patient given fluids. Patient will be admitted to the ICU. - Differential Diagnosis pneumonia. SOB. ACS. PE. Critical Care Time: Yes Critical care time in (mins) excluding proc time.: 55 Critical care attestation.: If time is entered above; I have spent that time in minutes in the direct care of this critically ill patient, excluding procedure time. Critical Care Time: 55 minutes ED Disposition Clinical Impression: SOB (shortness of breath), ESRD (end stage renal disease), SIRS (systemic inflammatory response syndrome), Acidosis, ESRD (end stage renal disease) on dialysis, Elevated troponin, Hypoxia CHF (congestive heart failure) Qualifiers: Heart failure type: unspecified Heart failure chronicity: unspecified Qualified Code(s): I50.9 - Heart failure, unspecified Pneumonia Qualifiers: Pneumonia type: due to unspecified organism Laterality: bilateral Lung location: unspecified part of lung Qualified Code(s): J18.9 - Pneumonia, unspecified organism Leucocytosis Qualifiers: Leukocytosis type: unspecified Qualified Code(s): D72.829 - Elevated white blood cell count, unspecified DKA (diabetic ketoacidoses) Qualifiers: Diabetes mellitus type: type 1 Diabetes mellitus complication detail: without coma Qualified Code(s): E10.10 - Type 1 diabetes mellitus with ketoacidosis without coma Disposition: 09 OP ADMIT IP TO THIS HOSP Is pt being admited?: Yes Does the pt Need Aspirin: No Condition: Critical Time of Disposition: 09:45
[2019-09-26 07:46] LABS: Basophils # (Auto) 0.1 K/mm3 (0.0-0.1); Basophils % (Auto) 0.3 % (0.0-1.8); Eosinophils % (Auto) 0.1 % (0.0-4.3); Hematocrit 36.3 % (35.5-45.6); Hemoglobin 11.8 gm/dl (11.8-15.2); Lymphocytes # (Auto) 2.1 K/mm3 (1.2-5.4); Lymphocytes % (Auto) 11.3 % (13.4-35.0); Mean Corpuscular HGB Conc 33 % (32-34); Mean Corpuscular Volume 93 fl (84-94); Monocytes % (Auto) 5.4 % (0.0-7.3); Platelet Count 129 K/mm3 (140-440); Red Blood Count 3.89 M/mm3 (3.65-5.03); Red Cell Distribution Width 16.1 % (13.2-15.2)
[2019-09-26 08:03] LABS: Creatine Kinase MB 10.5 ng/mL (0.0-4.0)
[2019-09-26 08:05] LABS: Calcium 9.1 mg/dL (8.4-10.2)
--- NOTE | 2019-09-26 08:12 | XRay Report ---
CHEST 1 VIEW INDICATION / CLINICAL INFORMATION: Dyspnea. COMPARISON: Chest radiograph 08/13/2019 FINDINGS: SUPPORT DEVICES: None. HEART / MEDIASTINUM: Stable. LUNGS / PLEURA: Interval development of diffuse patchy airspace opacities throughout both lungs, most conspicuous at the left lung base. No definite pleural effusion. No pneumothorax. ADDITIONAL FINDINGS: No acute skeletal abnormality. Right axillary/brachial vascular stent grafts are noted. IMPRESSION: 1. Patchy airspace opacities throughout both lungs are concerning for multifocal pneumonia, with mild alveolar edema or pulmonary hemorrhage felt less likely. Signer Name: Rashi Espinoza MD Signed: 09/26/2019 8:07 AM Workstation Name: [id number]
[2019-09-26 08:26] LABS: Chol/HDL Ratio 3.41 %
[2019-09-26] MEDS ORDERED: SODIUM CHLORIDE 0.9% 1000 ML 1,000 ML IV ONE (09:43)
--- NOTE | 2019-09-26 09:44 | Nuclear Medicine Report ---
V/Q Scan HISTORY: Dyspnea. Acute shortness of breath TECHNIQUE: Patient was given 5.2 mCi of technetium MAA and 19.3 mCi of xenon-133. COMPARISON: Chest x-ray from earlier today FINDINGS: No appreciable mismatch between ventilation and perfusion imaging. IMPRESSION: Low probability for PTE. Signer Name: Ricky Sharp MD Signed: 09/26/2019 9:40 AM Workstation Name: [id number]
[2019-09-26] MEDS ORDERED: INSULIN REGULAR, HUMAN 100 UNITS in SODIUM CHLORIDE 0.9% 99 ML IV SCH (10:00)
[2019-09-26 11:00] LABS: Calcium 8.9 mg/dL (8.4-10.2)
[2019-09-26 13:40] LABS: Calcium 8.5 mg/dL (8.4-10.2)
--- NOTE | 2019-09-26 15:15 | Consultation ---
History of Present Illness - Reason for Consult end stage renal disease - History of Present Illness 38-year-old gentleman with medical history significant for hypertension uncontrolled, diabetes mellitus type 2, end-stage renal disease on hemodialysis on hemodialysis by right upper arm graft admitted with complaint of shortness of breath and reports associated orthopnea and PND. Denies any chills denies any abdominal pain denies any sick contacts reports a headache received fluid and antibiotics in the emergency room is reports his dry weight is about 89 kg Medications and Allergies Allergies Allergy/AdvReac Type Severity Reaction Status Date / Time cefazolin [From [facility]] Allergy Vomiting Verified 07/21/18 13:02 shellfish derived Allergy Anaphylaxis Verified 06/08/18 15:09 iodine AdvReac Severe Vomiting Verified 06/08/18 15:09 IV dye AdvReac Severe Vomiting Uncoded 04/28/18 08:49 Home Medications Medication Instructions Recorded Confirmed Last Taken Type Insulin Regular, Human [Novolin R] 3 - 5 unit SQ TID 06/05/19 08/13/19 08/12/19 History Calcium Acetate [Phoslo] 1,334 mg PO TIDWM capsule 06/13/19 08/13/19 08/12/19 Rx Insulin Glargine [Lantus VIAL] 20 units SUB-Q QHS 30 Days units 06/13/19 08/13/19 08/12/19 Rx Losartan [Cozaar] 50 mg PO QDAY #30 tablet 06/13/19 08/13/19 08/12/19 Rx amLODIPine 10 mg PO DAILY tablet 06/13/19 08/13/19 08/12/19 Rx cloNIDine [Catapres] 0.3 mg PO Q12HR tablet 06/13/19 08/13/19 08/12/19 Rx hydrALAZINE [Apresoline TAB] 25 mg PO Q8HR #30 tablet 06/13/19 08/13/19 08/12/19 Rx Metoclopramide [Reglan TAB] 10 mg PO TID PRN #20 tab 06/23/19 08/13/19 08/12/19 Rx Dicyclomine [Bentyl] 20 mg PO QID PRN #20 tablet 08/13/19 Unknown Rx Metoclopramide [Reglan] 10 mg PO TID PRN #20 tab 08/13/19 Unknown Rx Active Meds: Active Medications Insulin Human Regular 100 (units/ Sodium Chloride) 100 mls @ 1 mls/hr IV TITR SANDRINE; Protocol Last Titration: 09/26/19 15:07 Dose: 3 units/hr, 3 mls/hr Documented by: Review of Systems Constitutional: weight gain, chills, fatigue Ears, nose, mouth and throat: no ear pain, no ear discharge Cardiovascular: orthopnea, paroxysmal nocturnal dyspnea, no chest pain Gastrointestinal: no abdominal pain, no nausea, no vomiting Genitourinary Male: no dysuria, no hematuria, no flank pain Musculoskeletal: no neck stiffness, no neck pain Integumentary: no rash, no pruritis Neurological: no head injury, no transient paralysis Psychiatric: no anxiety, no memory loss, no change in sleep habits Endocrine: no cold intolerance, no heat intolerance Hematologic/Lymphatic: no easy bruising, no easy bleeding Exam - Vital Signs Vital signs: Vital Signs Temp Pulse Resp BP Pulse Ox 98.7 F 125 H 17 165/98 93 09/26/19 07:48 09/26/19 07:48 09/26/19 07:48 09/26/19 07:48 09/26/19 07:48 - General Appearance General appearance: well-developed, well-nourished EENT: ATNC, PERRL Neck: Present: neck supple, trachea midline Respiratory: Decreased Breath Sounds Heart: regular, S1S2 Gastrointestinal: Present: normal, normoactive bowel sounds Integumentary: no rash Neurologic: alert and oriented x3, CN 3-12 intact Psychiatric: mood/affect appropriate Results - Lab Results 09/26/19 07:30 09/26/19 13:01 Most recent lab results Calcium 8.5 mg/dL (8.4-10.2) 09/26/19 13:01 Phosphorus 2.90 mg/dL (2.5-4.5) 09/26/19 10:05 Magnesium 2.00 mg/dL (1.7-2.3) 09/26/19 10:05 - Image Kidney/bladder ultrasound: other (reviewed chest x-ray with bilateral patchy opacities as consistent with congestion) Assessment and Plan - Patient Problems (1) ESRD (end stage renal disease) on dialysis Current Visit: Yes Status: Acute Plan to address problem: End-stage renal disease Chest x-ray with pulmonary congestion will initiate dialysis (2) Acidosis Current Visit: Yes Status: Acute Plan to address problem: Metabolic acidosis Secondary to chronic kidney disease (3) Anemia Current Visit: No Status: Acute Qualifiers: Chronic kidney disease stage: on chronic dialysis Plan to address problem: Mild anemia secondary to chronic kidney disease Hold epogen Monitor CBC (4) Acute respiratory failure Current Visit: No Status: Resolved Qualifiers: Respiratory failure complication: hypoxia Qualified Code(s): J96.01 - Acute respiratory failure with hypoxia Plan to address problem: Acute respiratory failure Chest x-ray revealed bilateral patchy opacities possible edema versus infection Will initiate dialysis Wean oxygen as tolerated
[2019-09-26 15:24] LABS: Calcium 8.7 mg/dL (8.4-10.2)
--- NOTE | 2019-09-26 15:35 | History and Physical Report ---
History of Present Illness Date of examination: 09/26/19 Date of admission: 09/26/19 09:45 Chief complaint: SOB since AM History of present illness: Patient is a 38-year-old male who presents emergency room with complaints of shortness of breath. Patient states she was having dialysis became acutely short of breath. Patient states his shortness of breath is better with rest and worse with exertion. Patient denies fever and chills. Patient denies cough. Patient brought in by EMS. EMS states that they picked him up from dialysis and gave her breathing to is a felt that his lungs were tight. Patient never hypoxic. No other treatment given except for patient placed on oxygen.. Past Medical History Previous Medical History?: Yes Hypertension: Yes CVA: Yes (TIA's) Heart Attack/AMI: Yes Diabetes: Yes Pulmonary Embolism: Yes Renal Disease: Yes Headaches / Migraines: Yes (Migraines) Additional medical history: gastroparesis, PE -Surgical History Past Surgical History?: Yes Additional Surgical History: left eye surgery, right toe amputation, right chest vas cath. GRAFT RIGHT UPPER ARM. Graft revision 06/2018 per pt Family History Family history: no significant Social History Smoking Status: Former Smoker Substance Use Type: None Medications Home Medications: Home Medications Medication Instructions Recorded Confirmed Last Taken Type Insulin Regular, Human [Novolin R] 3 - 5 unit SQ TID 06/05/19 08/13/19 08/12/19 History Calcium Acetate [Phoslo] 1,334 mg PO TIDWM capsule 06/13/19 08/13/19 08/12/19 Rx Insulin Glargine [Lantus VIAL] 20 units SUB-Q QHS 30 Days units 06/13/1908/12/19 Rx Losartan [Cozaar] 50 mg PO QDAY #30 tablet 06/13/19 08/13/19 08/12/19 Rx amLODIPine 10 mg PO DAILY tablet 06/13/19 08/13/19 08/12/19 Rx cloNIDine [Catapres] 0.3 mg PO Q12HR tablet 06/13/19 08/13/19 08/12/19 Rx hydrALAZINE [Apresoline TAB] 25 mg PO Q8HR #30 tablet 06/13/19 08/13/19 08/12/19 Rx Metoclopramide [Reglan TAB] 10 mg PO TID PRN #20 tab 06/23/19 08/13/19 08/12/19 Rx Dicyclomine [Bentyl] 20 mg PO QID PRN #20 tablet 08/13/19 Unknown Rx Metoclopramide [Reglan] 10 mg PO TID PRN #20 tab 08/13/19 Unknown Rx Review of Systems ROS: Stated complaint: SOB Other details as noted in HPI Constitutional: denies: chills, fever Eyes: denies: eye pain, eye discharge, vision change ENT: denies: ear pain, throat pain Respiratory: shortness of breath. denies: cough, wheezing Cardiovascular: denies: chest pain, palpitations Endocrine: no symptoms reported Gastrointestinal: denies: abdominal pain, nausea, diarrhea Genitourinary: denies: urgency, dysuria Musculoskeletal: denies: back pain, joint swelling, arthralgia Skin: denies: rash, lesions Neurological: denies: headache, weakness, paresthesias Psychiatric: denies: anxiety, depression Hematological/Lymphatic: denies: easy bleeding, easy bruising Medications and Allergies Allergies Allergy/AdvReac Type Severity Reaction Status Date / Time cefazolin [From [facility]] Allergy Vomiting Verified 07/21/18 13:02 shellfish derived Allergy Anaphylaxis Verified 06/08/18 15:09 iodine AdvReac Severe Vomiting Verified 06/08/18 15:09 IV dye AdvReac Severe Vomiting Uncoded 04/28/18 08:49 Home Medications Medication Instructions Recorded Confirmed Last Taken Type Insulin Regular, Human [Novolin R] 3 - 5 unit SQ TID 06/05/19 09/27/19 08/12/19 History Calcium Acetate [Phoslo] 1,334 mg PO TIDWM capsule 06/13/19 09/27/19 08/12/19 Rx Insulin Glargine [Lantus VIAL] 20 units SUB-Q QHS 30 Days units 06/13/19 09/27/19 08/12/19 Rx Losartan [Cozaar] 50 mg PO QDAY #30 tablet 06/13/19 09/27/19 08/12/19 Rx amLODIPine 10 mg PO DAILY tablet 06/13/19 09/27/19 09/25/19 Rx 10 mg cloNIDine [Catapres] 0.3 mg PO Q12HR tablet 06/13/19 09/27/19 09/26/19 14:00 Rx hydrALAZINE [Apresoline TAB] 25 mg PO Q8HR #30 tablet 06/13/19 09/27/19 09/25/19 07:00 Rx Metoclopramide [Reglan TAB] 10 mg PO TID PRN #20 tab 06/23/19 09/27/19 08/12/19 Rx Dicyclomine [Bentyl] 20 mg PO QID PRN #20 tablet 08/13/19 09/27/19 Unknown Rx Metoclopramide [Reglan] 10 mg PO TID PRN #20 tab 08/13/19 09/27/19 Unknown Rx Active Meds: Active Medications Insulin Human Regular 100 (units/ Sodium Chloride) 100 mls @ 1 mls/hr IV TITR [facility]; Protocol Last Titration: 09/26/19 15:07 Dose: 3 units/hr, 3 mls/hr Documented by: Exam - Constitutional Vitals: Temp Pulse Resp BP Pulse Ox 98.7 F 93 H 15 168/95 99 09/26/19 07:52 09/26/19 13:30 09/26/19 13:30 09/26/19 13:30 09/26/19 13:30 General appearance: Present: no acute distress, well-nourished - EENT Eyes: Present: PERRL ENT: hearing intact, clear oral mucosa - Neck Neck: Present: supple, normal ROM - Respiratory Respiratory effort: normal Respiratory: bilateral: CTA - Cardiovascular Heart Sounds: Present: S1 & S2. Absent: rub, click - Extremities Extremities: pulses symmetrical, No edema Peripheral Pulses: within normal limits - Abdominal General gastrointestinal: Present: soft, non-tender, non-distended, normal bowel sounds Male genitourinary: Present: normal - Integumentary Integumentary: Present: clear, warm, dry - Musculoskeletal Musculoskeletal: gait normal, strength equal bilaterally - Psychiatric Psychiatric: appropriate mood/affect, intact judgment & insight - Neurologic Neurologic: CNII-XII intact, moves all extremities Results - Labs CBC & Chem 7: 09/26/19 07:30 09/27/19 05:12 Labs: Laboratory Last Values WBC 18.6 K/mm3 (4.5-11.0) H 09/26/19 07:30 RBC 3.89 M/mm3 (3.65-5.03) 09/26/19 07:30 Hgb 11.8 gm/dl (11.8-15.2) 09/26/19 07:30 Hct 36.3 % (35.5-45.6) 09/26/19 07:30 MCV 93 fl (84-94) 09/26/19 07:30 MCH 30 pg (28-32) 09/26/19 07:30 MCHC 33 % (32-34) 09/26/19 07:30 RDW 16.1 % (13.2-15.2) H 09/26/19 07:30 Plt Count 129 K/mm3 (140-440) L 09/26/19 07:30 Lymph % (Auto) 11.3 % (13.4-35.0) L 09/26/19 07:30 [place] % (Auto) 5.4 % (0.0-7.3) 09/26/19 07:30 Eos % (Auto) 0.1 % (0.0-4.3) 09/26/19 07:30 Baso % (Auto) 0.3 % (0.0-1.8) 09/26/19 07:30 Lymph # 2.1 K/mm3 (1.2-5.4) 09/26/19 07:30 [place] # 1.0 K/mm3 (0.0-0.8) H 09/26/19 07:30 Eos # 0.0 K/mm3 (0.0-0.4) 09/26/19 07:30 Baso # 0.1 K/mm3 (0.0-0.1) 09/26/19 07:30 Seg Neutrophils % 82.9 % (40.0-70.0) H 09/26/19 07:30 Seg Neutrophils # 15.4 K/mm3 (1.8-7.7) H 09/26/19 07:30 VBG pH 7.297 (7.320-7.420) L 09/26/19 10:05 Sodium 138 mmol/L (137-145) 09/26/19 14:51 Potassium 4.4 mmol/L (3.6-5.0) 09/26/19 14:51 Chloride 100.8 mmol/L (98-107) 09/26/19 14:51 Carbon Dioxide 14 mmol/L (22-30) L 09/26/19 14:51 Anion Gap 28 mmol/L 09/26/19 14:51 BUN 54 mg/dL (9-20) H 09/26/19 14:51 Creatinine 12.7 mg/dL (0.8-1.5) H 09/26/19 14:51 Estimated GFR 5 ml/min 09/26/19 14:51 BUN/Creatinine Ratio 4 % 09/26/19 14:51 Glucose 185 mg/dL (75-100) H 09/26/19 14:51 POC Glucose 174 (70-105) H 09/26/19 15:10 Ketones Quantitative Negative (Negative) 09/26/19 10:05 Calcium 8.7 mg/dL (8.4-10.2) 09/26/19 14:51 Phosphorus 2.90 mg/dL (2.5-4.5) 09/26/19 10:05 Magnesium 2.00 mg/dL (1.7-2.3) 09/26/19 10:05 Total Bilirubin 0.30 mg/dL (0.1-1.2) 09/26/19 07:30 AST 12 units/L (5-40) 09/26/19 07:30 ALT 13 units/L (7-56) 09/26/19 07:30 Alkaline Phosphatase 73 units/L (35-129) 09/26/19 07:30 Total Creatine Kinase 149 units/L (55-170) 09/26/19 07:30 CK-MB (CK-2) 10.5 ng/mL (0.0-4.0) H 09/26/19 07:30 CK-MB (CK-2) Rel Index 7.0 (0-4) H 09/26/19 07:30 Troponin T 0.258 ng/mL (0.00-0.029) H* 09/26/19 07:30 Total Protein 7.3 g/dL (6.3-8.2) 09/26/19 07:30 Albumin 4.0 g/dL (3.9-5) 09/26/19 07:30 Albumin/Globulin Ratio 1.2 % 09/26/19 07:30 Triglycerides 179 mg/dL (2-149) H 09/26/19 07:30 Cholesterol 140 mg/dL (50-199) 09/26/19 07:30 LDL Cholesterol Direct 83 mg/dL (50-130) 09/26/19 07:30 HDL Cholesterol 41 mg/dL (40-59) 09/26/19 07:30 Cholesterol/HDL Ratio 3.41 % 09/26/19 07:30 - Imaging and Cardiology EKG: report reviewed Chest x-ray: report reviewed Assessment and Plan Assessment and plan: CCT 40 min Advance Directives: Yes (Full code) VTE prophylaxis?: Chemical Plan of care discussed with patient/family: Yes - Patient Problems (1) DKA (diabetic ketoacidoses) Current Visit: Yes Status: Acute Qualifiers: Diabetes mellitus type: type 1 Diabetes mellitus complication detail: without coma Qualified Code(s): E10.10 - Type 1 diabetes mellitus with ketoacidosis without coma Plan to address problem: DKA protocol IV Insulin (2) ESRD (end stage renal disease) on dialysis Current Visit: Yes Status: Acute Plan to address problem: Cont HD (3) HTN (hypertension) Current Visit: Yes Status: Chronic Qualifiers: Hypertension type: essential hypertension Qualified Code(s): I10 - Essential (primary) hypertension Plan to address problem: Cont antihypertensives (4) DVT prophylaxis Current Visit: No Status: Acute Plan to address problem: On Heparin
[2019-09-26] MEDS ORDERED: METOCLOPRAMIDE 10 MG TAB PO PRN (15:37)
[2019-09-26] MEDS ORDERED: DICYCLOMINE 20 MG TAB PO PRN (15:37)
[2019-09-26 15:57] LABS: Hepatitis B Surface Antigen Non-Reactive (Negative); Hepatitis C Virus Antibody Non-Reactive (NonReactive)
[2019-09-26 16:57] LABS: Calcium 8.9 mg/dL (8.4-10.2)
[2019-09-26] MEDS: amLODIPine 10 MG TAB PO SCH (18:04)
[2019-09-26] MEDS: hydrALAZINE 25 MG TAB PO SCH ×2 (18:05→22:54)
[2019-09-26] MEDS: LOSARTAN 50 MG TAB PO SCH (18:05)
[2019-09-26] MEDS: CALCIUM ACETATE 667 MG CAP PO SCH (18:05)
[2019-09-26] MEDS: cloNIDine 0.1 MG TAB PO SCH ×2 (18:05→22:58)
[2019-09-26] MEDS: IPRATROPIUM/ALBUTEROL SULFATE 3 ML AMPUL.NEB IH SCH ×2 (18:20→21:11)
[2019-09-26] MEDS: HYDROmorphone 1 MG/1 ML INJ IV PRN ×2 (18:46→21:01)
[2019-09-26] MEDS ORDERED: INSULIN REGULAR, HUMAN 100 UNITS/1 ML SUB-Q SCH (20:00)
[2019-09-26] MEDS: CEFEPIME/NS 1 GM/100 ML 1 GM/100 ML BAG IV SCH (21:01)
[2019-09-26] MEDS: HEPARIN 5,000 UNIT/1 ML VIAL SUB-Q SCH (22:55)
[2019-09-26] MEDS: INSULIN GLARGINE 100 UNITS/ML SUB-Q SCH (22:56)
[2019-09-26] MEDS: INSULIN LISPRO 100 UNIT/ML SUB-Q SCH (23:58)
[2019-09-27] MEDS: INSULIN LISPRO 100 UNIT/ML SUB-Q SCH ×5 (02:05→18:07)
[2019-09-27] MEDS: hydrALAZINE 25 MG TAB PO SCH ×3 (06:07→22:35)
[2019-09-27 06:28] LABS: Calcium 9.1 mg/dL (8.4-10.2)
[2019-09-27] MEDS: IPRATROPIUM/ALBUTEROL SULFATE 3 ML AMPUL.NEB IH SCH ×4 (08:45→20:58)
[2019-09-27] MEDS ORDERED: ONDANSETRON 4 MG/2 ML INJ IV ONE (09:00)
[2019-09-27] MEDS: CALCIUM ACETATE 667 MG CAP PO SCH ×5 (09:17→16:47)
[2019-09-27] MEDS: cloNIDine 0.1 MG TAB PO SCH ×4 (09:17→22:36)
[2019-09-27] MEDS: amLODIPine 10 MG TAB PO SCH ×3 (09:17→14:42)
[2019-09-27] MEDS: LOSARTAN 50 MG TAB PO SCH (09:17)
[2019-09-27] MEDS: HYDROmorphone 1 MG/1 ML INJ IV PRN (09:18)
[2019-09-27] MEDS: HEPARIN 5,000 UNIT/1 ML VIAL SUB-Q SCH ×2 (09:18→22:37)
[2019-09-27] MEDS ORDERED: ONDANSETRON 4 MG/2 ML INJ IV PRN (09:58)
--- NOTE | 2019-09-27 10:27 | Consultation ---
History of Present Illness - Reason for Consult Consult date: 09/27/19 DKA Requesting physician: CHERI CHICAS - History of Present Illness 38 y/o male admitted from HD with shortness of breath. Did not undergo HD as was sent straight from there. CXR shows multifocal patch areas and concern for possible pneumonia vs edema. Patient was inititated on insulin and brought to ICU. This am patient still has nausea and vomiting as apparently he had throughout the night. His BP remains elevated and he is not able to keep down any of his oral medications or food. Nursing concerned that he should not be moved. Past History Past Medical History: diabetes, dialysis, ESRD, hypertension Past Surgical History: Other (Related to Kidney disease (access, fistula, graft, etc)) Medications and Allergies Allergies Allergy/AdvReac Type Severity Reaction Status Date / Time cefazolin [From [facility]] Allergy Vomiting Verified 07/21/18 13:02 shellfish derived Allergy Anaphylaxis Verified 06/08/18 15:09 iodine AdvReac Severe Vomiting Verified 06/08/18 15:09 IV dye AdvReac Severe Vomiting Uncoded 04/28/18 08:49 Home Medications Medication Instructions Recorded Confirmed Last Taken Type Insulin Regular, Human [Novolin R] 3 - 5 unit SQ TID 06/05/19 09/27/19 08/12/19 History Calcium Acetate [Phoslo] 1,334 mg PO TIDWM capsule 06/13/19 09/27/19 08/12/19 Rx Insulin Glargine [Lantus VIAL] 20 units SUB-Q QHS 30 Days units 06/13/19 09/27/19 08/12/19 Rx Losartan [Cozaar] 50 mg PO QDAY #30 tablet 06/13/19 09/27/19 08/12/19 Rx amLODIPine 10 mg PO DAILY tablet 06/13/19 09/27/19 09/25/19 Rx 10 mg cloNIDine [Catapres] 0.3 mg PO Q12HR tablet 06/13/19 09/27/19 09/26/19 14:00 Rx hydrALAZINE [Apresoline TAB] 25 mg PO Q8HR #30 tablet 06/13/19 09/27/19 09/25/19 07:00 Rx Metoclopramide [Reglan TAB] 10 mg PO TID PRN #20 tab 0809/27/19 08/12/19 Rx Dicyclomine [Bentyl] 20 mg PO QID PRN #20 tablet 08/13/19 09/27/19 Unknown Rx Metoclopramide [Reglan] 10 mg PO TID PRN #20 tab 08/13/19 09/27/19 Unknown Rx Active Meds: Active Medications Albuterol/Ipratropium (Duoneb *Not For Prn Use*) 1 ampul IH QIDRT [facility] Last Admin: 09/27/19 08:45 Dose: 1 ampul Documented by: Amlodipine Besylate (Amlodipine) 10 mg PO DAILY [facility] Last Admin: 09/26/19 18:04 Dose: 10 mg Documented by: Calcium Acetate (Phoslo) 1,334 mg PO TIDWM [facility] Last Admin: 09/26/19 18:05 Dose: 1,334 mg Documented by: Clonidine HCl (Catapres) 0.3 mg PO Q12HR [facility] Last Admin: 09/26/19 22:58 Dose: 0.3 mg Documented by: Dicyclomine HCl (Bentyl) 20 mg PO QID PRN PRN Reason: ABDOMINAL PAIN Heparin Sodium (Porcine) (Heparin) 5,000 unit SUB-Q Q12HR [facility] Last Admin: 09/27/19 09:18 Dose: 5,000 unit Documented by: Hydralazine HCl (Apresoline) 25 mg PO Q8HR [facility] Last Admin: 09/27/19 06:07 Dose: 25 mg Documented by: Hydromorphone HCl (Dilaudid) 0.5 mg IV Q3H PRN PRN Reason: Pain , Severe (7-10) Last Admin: 09/27/19 09:18 Dose: 0.5 mg Documented by: Cefepime HCl (Cefepime/Ns 1 Gm/100 Ml) 1 gm in 100 mls @ 200 mls/hr IV Q24H [facility]; Protocol Last Admin: 09/26/19 21:01 Dose: 200 mls/hr Documented by: Nicardipine HCl 50 mg/ Sodium (Chloride) 250 mls @ 25 mls/hr IV TITR [facility]; Protocol Insulin Glargine (Lantus) 20 units SUB-Q QHS [facility] Last Admin: 09/26/19 22:56 Dose: 20 units Documented by: Insulin Human Lispro (Humalog) 0 unit SUB-Q Q6HR [facility]; Protocol Losartan Potassium (Cozaar) 50 mg PO QDAY [facility] Last Admin: 09/27/19 09:17 Dose: 50 mg Documented by: Metoclopramide HCl (Reglan) 10 mg PO TID PRN PRN Reason: Nausea Last Admin: 09/27/19 09:17 Dose: 10 mg Documented by: Metoclopramide HCl (Reglan) 5 mg IV Q6HR [facility] Ondansetron HCl (Zofran) 4 mg IV Q8H PRN PRN Reason: Nausea And Vomiting Exam - Constitutional Vitals: Temp Pulse Resp BP Pulse Ox 99.1 F 98 H 19 175/98 91 09/27/19 08:00 09/27/19 09:17 09/27/19 09:00 09/27/19 09:17 09/27/19 09:00 Results - Labs CBC & Chem 7: 09/26/19 07:30 09/27/19 05:12 Labs: Abnormal lab results 09/26/19 09/26/19 09/26/19 Range/Units 10:05 10:05 10:38 VBG pH 7.297 L (7.320-7.420) Chloride 96.2 L (98-107) mmol/L Carbon Dioxide 18 L (22-30) mmol/L BUN 52 H (9-20) mg/dL Creatinine 12.4 H (0.8-1.5) mg/dL Glucose 332 H (75-100) mg/dL POC Glucose 357 H (70-105) 09/26/19 09/26/19 09/26/19 Range/Units 11:56 12:58 13:01 VBG pH (7.320-7.420) Chloride 97.9 L (98-107) mmol/L Carbon Dioxide 17 L (22-30) mmol/L BUN 52 H (9-20) mg/dL Creatinine 12.3 H (0.8-1.5) mg/dL Glucose 249 H (75-100) mg/dL POC Glucose 239 H 283 H (70-105) 09/26/19 09/26/19 09/26/19 Range/Units 13:56 14:51 15:10 VBG pH (7.320-7.420) Chloride (98-107) mmol/L Carbon Dioxide 14 L (22-30) mmol/L BUN 54 H (9-20) mg/dL Creatinine 12.7 H (0.8-1.5) mg/dL Glucose 185 H (75-100) mg/dL POC Glucose 216 H 174 H (70-105) 09/26/19 09/26/19 09/26/19 Range/Units 16:15 16:54 18:07 VBG pH (7.320-7.420) Chloride (98-107) mmol/L Carbon Dioxide 17 L (22-30) mmol/L BUN 58 H (9-20) mg/dL Creatinine 13.4 H (0.8-1.5) mg/dL Glucose 146 H (75-100) mg/dL POC Glucose 137 H 131 H (70-105) 09/26/19 09/26/19 09/26/19 Range/Units 19:07 20:13 23:55 VBG pH (7.320-7.420) Chloride (98-107) mmol/L Carbon Dioxide (22-30) mmol/L BUN (9-20) mg/dL Creatinine (0.8-1.5) mg/dL Glucose (75-100) mg/dL POC Glucose 131 H 164 H 289 H (70-105) 09/27/19 09/27/19 09/27/19 Range/Units 02:04 05:12 05:25 VBG pH (7.320-7.420) Chloride 97.6 L (98-107) mmol/L Carbon Dioxide (22-30) mmol/L BUN 32 H (9-20) mg/dL Creatinine 8.9 H (0.8-1.5) mg/dL Glucose 188 H (75-100) mg/dL POC Glucose 301 H 206 H (70-105) 09/27/19 Range/Units 07:34 VBG pH (7.320-7.420) Chloride (98-107) mmol/L Carbon Dioxide (22-30) mmol/L BUN (9-20) mg/dL Creatinine (0.8-1.5) mg/dL Glucose (75-100) mg/dL POC Glucose 169 H (70-105) - Imaging and Cardiology Chest x-ray: image reviewed (as stated in HPI) Assessment and Plan 38 y/o male with known ESRD and diabetes admitted with elevated anion GAP and elevated blood sugar concerning for DKA with abnormal CXR and now this am persistent nausea and vomiting despite HD and insulin drip on yesterday. 1. Suggest holding transfer out of unit 2. Will start patient on Cardene drip 3. Will start patient on scheduled reglan along with PRN zofran 4. Change FSBS to [id number] 5. Change diet to clear liquids and then advance as tolerated. CCT 31 minutes.
[2019-09-27] MEDS ORDERED: niCARdipine 50 MG in SODIUM CHLORIDE 0.9% 250ML 230 ML IV SCH (11:00)
[2019-09-27] MEDS: METOCLOPRAMIDE 10 MG/2 ML INJ IV SCH ×2 (11:20→18:07)
--- NOTE | 2019-09-27 11:23 | XRay Report ---
CHEST 1 VIEW 09/27/2019 11:01 AM INDICATION / CLINICAL INFORMATION: Hypoxemia, concern for pulmonary edema. COMPARISON: Chest x-ray 09/26/2019. FINDINGS: SUPPORT DEVICES: None. HEART / MEDIASTINUM: Stable. LUNGS / PLEURA: Mildly improved patchy bilateral parenchymal opacities. No significant effusion. No p neumothorax. ADDITIONAL FINDINGS: No significant additional findings. IMPRESSION: 1. Mildly improved patchy bilateral pulmonary parenchymal opacities. No new acute finding. Signer Name: Be Fitzpatrick MD Signed: 09/27/2019 11:19 AM Workstation Name: [id number]
--- NOTE | 2019-09-27 15:30 | Progress Note ---
Assessment and Plan - Patient Problems (1) ESRD (end stage renal disease) on dialysis Current Visit: Yes Status: Acute Plan to address problem: End-stage renal disease Chest x-ray with pulmonary congestion Received dialysis continue dialysis Tuesday (2) Acidosis Current Visit: Yes Status: Acute Plan to address problem: Metabolic acidosis Secondary to chronic kidney disease (3) Anemia Current Visit: No Status: Acute Qualifiers: Chronic kidney disease stage: on chronic dialysis Plan to address problem: Mild anemia secondary to chronic kidney disease Hold epogen Monitor CBC (4) Acute respiratory failure Current Visit: No Status: Resolved Qualifiers: Respiratory failure complication: hypoxia Qualified Code(s): J96.01 - Acute respiratory failure with hypoxia Plan to address problem: Acute respiratory failure resolving Chest x-ray revealed bilateral patchy opacities possible edema versus infection on admission. repeat CXR improved Wean oxygen as tolerated Subjective Interval history: 38-year-old gentleman with medical history significant for hypertension uncontrolled, diabetes mellitus type 2, end-stage renal disease on hemodialysis on hemodialysis by right upper arm graft admitted with complaint of shortness of breath and reports associated orthopnea and PND. Denies any chills denies any abdominal pain denies any sick contacts reports a headache received fluid and antibiotics in the emergency room is reports his dry weight is about 89 kg The patient seen today he remains in the ICU tachycardic shortness of breath improved. currently receiving breathing treatment Objective - Vital Signs Vital signs: Vital Signs - 12hr 09/27/19 09/27/19 09/27/19 03:30 03:40 03:49 Temperature 99.1 F Pulse Rate 89 88 Pulse Rate [ Anterior Bilateral] Pulse Rate [ Bilateral Throughout] Pulse Rate [ From Monitor] Respiratory 15 16 Rate Respiratory Rate [Anterior Bilateral] Respiratory Rate [Bilateral Throughout] Blood Pressure 132/65 132/65 O2 Sat by Pulse 96 95 Oximetry 09/27/19 09/27/19 09/27/19 03:50 04:00 04:10 Temperature Pulse Rate 89 98 H 94 H Pulse Rate [ Anterior Bilateral] Pulse Rate [ Bilateral Throughout] Pulse Rate [ From Monitor] Respiratory 16 19 16 Rate Respiratory Rate [Anterior Bilateral] Respiratory Rate [Bilateral Throughout] Blood Pressure 132/65 141/76 141/76 O2 Sat by Pulse 95 94 95 Oximetry 09/27/19 09/27/19 09/27/19 04:20 04:30 04:40 Temperature Pulse Rate 99 H 93 H 93 H Pulse Rate [ Anterior Bilateral] Pulse Rate [ Bilateral Throughout] Pulse Rate [ From Monitor] Respiratory 17 16 18 Rate Respiratory Rate [Anterior Bilateral] Respiratory Rate [Bilateral Throughout] Blood Pressure 141/76 146/81 146/81 O2 Sat by Pulse 95 94 92 Oximetry 09/27/19 09/27/19 09/27/19 04:50 05:00 05:10 Temperature Pulse Rate 95 H 94 H 92 H Pulse Rate [ Anterior Bilateral] Pulse Rate [ Bilateral Throughout] Pulse Rate [ From Monitor] Respiratory 23 13 16 Rate Respiratory Rate [Anterior Bilateral] Respiratory Rate [Bilateral Throughout] Blood Pressure 146/81 146/81 146/81 O2 Sat by Pulse 93 91 94 Oximetry 09/27/19 09/27/19 09/27/19 05:20 05:30 05:40 Temperature Pulse Rate 91 H 90 89 Pulse Rate [ Anterior Bilateral] Pulse Rate [ Bilateral Throughout] Pulse Rate [ From Monitor] Respiratory 15 15 14 Rate Respiratory Rate [Anterior Bilateral] Respiratory Rate [Bilateral Throughout] Blood Pressure 146/81 120/69 120/69 O2 Sat by Pulse 95 94 95 Oximetry 09/27/19 09/27/19 09/27/19 05:50 06:00 06:07 Temperature Pulse Rate 88 87 89 Pulse Rate [ Anterior Bilateral] Pulse Rate [ Bilateral Throughout] Pulse Rate [ From Monitor] Respiratory 14 15 Rate Respiratory Rate [Anterior Bilateral] Respiratory Rate [Bilateral Throughout] Blood Pressure 120/69 123/71 123/71 O2 Sat by Pulse 96 96 Oximetry 09/27/19 09/27/19 09/27/19 06:10 06:20 06:30 Temperature Pulse Rate 87 88 91 H Pulse Rate [ Anterior Bilateral] Pulse Rate [ Bilateral Throughout] Pulse Rate [ From Monitor] Respiratory 15 13 14 Rate Respiratory Rate [Anterior Bilateral] Respiratory Rate [Bilateral Throughout] Blood Pressure 123/71 123/71 138/80 O2 Sat by Pulse 97 95 93 Oximetry 09/27/19 09/27/19 09/27/19 06:40 06:50 07:00 Temperature Pulse Rate 87 86 104 H Pulse Rate [ Anterior Bilateral] Pulse Rate [ Bilateral Throughout] Pulse Rate [ From Monitor] Respiratory 14 13 17 Rate Respiratory Rate [Anterior Bilateral] Respiratory Rate [Bilateral Throughout] Blood Pressure 138/80 138/80 138/80 O2 Sat by Pulse 95 95 95 Oximetry 09/27/19 09/27/1909/27/19 07:10 07:20 07:30 Temperature Pulse Rate 113 H 91 H 91 H Pulse Rate [ Anterior Bilateral] Pulse Rate [ Bilateral Throughout] Pulse Rate [ From Monitor] Respiratory 20 16 15 Rate Respiratory Rate [Anterior Bilateral] Respiratory Rate [Bilateral Throughout] Blood Pressure 138/80 138/80 147/86 O2 Sat by Pulse 97 96 95 Oximetry 09/27/19 09/27/19 09/27/19 07:40 07:50 08:00 Temperature 99.1 F Pulse Rate 93 H 91 H 91 H Pulse Rate [ Anterior Bilateral] Pulse Rate [ Bilateral Throughout] Pulse Rate [ 98 H From Monitor] Respiratory 17 12 14 Rate Respiratory Rate [Anterior Bilateral] Respiratory Rate [Bilateral Throughout] Blood Pressure 147/86 147/86 155/88 O2 Sat by Pulse 97 96 95 Oximetry 09/27/19 09/27/19 09/27/19 08:10 08:20 08:30 Temperature Pulse Rate 103 H 96 H 113 H Pulse Rate [ Anterior Bilateral] Pulse Rate [ Bilateral Throughout] Pulse Rate [ From Monitor] Respiratory 19 16 15 Rate Respiratory Rate [Anterior Bilateral] Respiratory Rate [Bilateral Throughout] Blood Pressure 155/88 147/86 147/86 O2 Sat by Pulse 94 96 99 Oximetry 09/27/19 09/27/19 09/27/19 08:40 08:45 08:50 Temperature Pulse Rate 96 H 96 H Pulse Rate [ 96 H Anterior Bilateral] Pulse Rate [ 96 H Bilateral Throughout] Pulse Rate [ From Monitor] Respiratory 15 14 Rate Respiratory 14 Rate [Anterior Bilateral] Respiratory 14 Rate [Bilateral Throughout] Blood Pressure 182/97 155/88 O2 Sat by Pulse 95 96 95 Oximetry 09/27/19 09/27/19 09/27/19 09:00 09:10 09:17 Temperature Pulse Rate 116 H 101 H 98 H Pulse Rate [ Anterior Bilateral] Pulse Rate [ Bilateral Throughout] Pulse Rate [ From Monitor] Respiratory 19 16 Rate Respiratory Rate [Anterior Bilateral] Respiratory Rate [Bilateral Throughout] Blood Pressure 206/112 206/112 175/98 O2 Sat by Pulse 91 90 Oximetry 09/27/19 09/27/19 09/27/19 09:20 09:30 09:40 Temperature Pulse Rate 104 H 102 H 102 H Pulse Rate [ Anterior Bilateral] Pulse Rate [ Bilateral Throughout] Pulse Rate [ From Monitor] Respiratory 20 16 16 Rate Respiratory Rate [Anterior Bilateral] Respiratory Rate [Bilateral Throughout] Blood Pressure 175/98 169/95 169/95 O2 Sat by Pulse 91 91 93 Oximetry 09/27/19 09/27/19 09/27/19 09:50 10:00 10:10 Temperature Pulse Rate 105 H 98 H 102 H Pulse Rate [ Anterior Bilateral] Pulse Rate [ Bilateral Throughout] Pulse Rate [ From Monitor] Respiratory 20 17 17 Rate Respiratory Rate [Anterior Bilateral] Respiratory Rate [Bilateral Throughout] Blood Pressure 169/95 169/95 200/98 O2 Sat by Pulse 100 97 93 Oximetry 09/27/19 09/27/19 09/27/19 10:20 10:30 10:40 Temperature Pulse Rate 97 H 95 H 105 H Pulse Rate [ Anterior Bilateral] Pulse Rate [ Bilateral Throughout] Pulse Rate [ From Monitor] Respiratory 14 15 14 Rate Respiratory Rate [Anterior Bilateral] Respiratory Rate [Bilateral Throughout] Blood Pressure 200/98 200/98 131/74 O2 Sat by Pulse 90 92 93 Oximetry 09/27/19 09/27/19 09/27/19 10:50 11:00 11:10 Temperature Pulse Rate 100 H 103 H 100 H Pulse Rate [ Anterior Bilateral] Pulse Rate [ Bilateral Throughout] Pulse Rate [ From Monitor] Respiratory 13 15 15 Rate Respiratory Rate [Anterior Bilateral] Respiratory Rate [Bilateral Throughout] Blood Pressure 131/74 131/74 151/88 O2 Sat by Pulse 93 93 94 Oximetry 09/27/19 09/27/19 09/27/19 11:20 11:30 11:40 Temperature Pulse Rate 99 H 103 H 97 H Pulse Rate [ Anterior Bilateral] Pulse Rate [ Bilateral Throughout] Pulse Rate [ From Monitor] Respiratory 15 15 15 Rate Respiratory Rate [Anterior Bilateral] Respiratory Rate [Bilateral Throughout] Blood Pressure 151/88 171/96 171/96 O2 Sat by Pulse 98 98 95 Oximetry 09/27/19 09/27/19 09/27/19 11:50 12:00 12:10 Temperature 99.3 F Pulse Rate 98 H 99 H 101 H Pulse Rate [ Anterior Bilateral] Pulse Rate [ Bilateral Throughout] Pulse Rate [ 99 H From Monitor] Respiratory 15 14 14 Rate Respiratory Rate [Anterior Bilateral] Respiratory Rate [Bilateral Throughout] Blood Pressure 155/85 155/84 155/84 O2 Sat by Pulse 95 95 94 Oximetry 09/27/19 09/27/19 09/27/19 12:20 12:30 12:40 Temperature Pulse Rate 95 H 97 H 109 H Pulse Rate [ Anterior Bilateral] Pulse Rate [ Bilateral Throughout] Pulse Rate [ From Monitor] Respiratory 15 15 14 Rate Respiratory Rate [Anterior Bilateral] Respiratory Rate [Bilateral Throughout] Blood Pressure 155/85 145/82 145/82 O2 Sat by Pulse 95 95 96 Oximetry 09/27/19 09/27/19 09/27/19 12:50 13:00 13:10 Temperature Pulse Rate 98 H 99 H 101 H Pulse Rate [ 99 H Anterior Bilateral] Pulse Rate [ 99 H Bilateral Throughout] Pulse Rate [ From Monitor] Respiratory 14 16 16 Rate Respiratory 16 Rate [Anterior Bilateral] Respiratory 16 Rate [Bilateral Throughout] Blood Pressure 145/83 137/80 137/80 O2 Sat by Pulse 94 95 98 Oximetry 09/27/19 09/27/19 09/27/19 13:20 13:30 13:40 Temperature Pulse Rate 111 H 115 H 117 H Pulse Rate [ Anterior Bilateral] Pulse Rate [ Bilateral Throughout] Pulse Rate [ From Monitor] Respiratory 17 16 15 Rate Respiratory Rate [Anterior Bilateral] Respiratory Rate [Bilateral Throughout] Blood Pressure 133/88 154/81 154/81 O2 Sat by Pulse 99 97 100 Oximetry 09/27/19 09/27/19 09/27/19 13:50 14:00 14:10 Temperature Pulse Rate 120 H 115 H 113 H Pulse Rate [ Anterior Bilateral] Pulse Rate [ Bilateral Throughout] Pulse Rate [ From Monitor] Respiratory 25 H 13 17 Rate Respiratory Rate [Anterior Bilateral] Respiratory Rate [Bilateral Throughout] Blood Pressure 160/80 143/75 143/75 O2 Sat by Pulse 98 99 94 Oximetry 09/27/19 09/27/19 09/27/19 14:20 14:30 14:40 Temperature Pulse Rate 112 H 107 H 117 H Pulse Rate [ Anterior Bilateral] Pulse Rate [ Bilateral Throughout] Pulse Rate [ From Monitor] Respiratory 16 15 19 Rate Respiratory Rate [Anterior Bilateral] Respiratory Rate [Bilateral Throughout] Blood Pressure 139/72 139/72 151/83 O2 Sat by Pulse 95 95 96 Oximetry 09/27/19 09/27/19 09/27/19 14:42 14:43 14:50 Temperature Pulse Rate 117 H 118 H 113 H Pulse Rate [ Anterior Bilateral] Pulse Rate [ Bilateral Throughout] Pulse Rate [ From Monitor] Respiratory 12 Rate Respiratory Rate [Anterior Bilateral] Respiratory Rate [Bilateral Throughout] Blood Pressure 151/83 151/83 146/84 O2 Sat by Pulse 98 Oximetry 09/27/19 15:00 Temperature Pulse Rate 111 H Pulse Rate [ Anterior Bilateral] Pulse Rate [ Bilateral Throughout] Pulse Rate [ From Monitor] Respiratory 15 Rate Respiratory Rate [Anterior Bilateral] Respiratory Rate [Bilateral Throughout] Blood Pressure 147/80 O2 Sat by Pulse 98 Oximetry - General Appearance General appearance: well-developed, well-nourished EENT: ATNC, PERRL Neck: no JVD Respiratory: Present: Decreased Breath Sounds Cardiology: regular, S1S2 Gastrointestinal: normal, normoactive bowel sounds Integumentary: no rash Neurologic: no focal deficit, CN 3-12 intact Psychiatric: mood/affect appropriate - Lab 09/26/19 07:30 09/27/19 05:12 Most recent lab results Calcium 9.1 mg/dL (8.4-10.2) 09/27/19 05:12 Phosphorus 2.90 mg/dL (2.5-4.5) 09/26/19 10:05 Magnesium 2.00 mg/dL (1.7-2.3) 09/26/19 10:05 - Imaging Chest x-ray: image reviewed (chest x-ray reviewed with pulmonary edema) Medications & Allergies - Medications Allergies/Adverse Reactions: Allergies cefazolin [From Anc] Allergy (Verified 07/21/18 13:02) Vomiting shellfish derived Allergy (Verified 06/08/18 15:09) Anaphylaxis iodine Adverse Reaction (Severe, Verified 06/08/18 15:09) Vomiting IV dye Adverse Reaction (Severe, Uncoded 04/28/18 08:49) Vomiting Home Medications: Home Medications Medication Instructions Recorded Confirmed Last Taken Type Insulin Regular, Human [Novolin R] 3 - 5 unit SQ TID 06/05/19 09/27/19 08/12/19 History Calcium Acetate [Phoslo] 1,334 mg PO TIDWM capsule 06/13/19 09/27/19 08/12/19 Rx Insulin Glargine [Lantus VIAL] 20 units SUB-Q QHS 30 Days units 06/13/19 09/27/19 08/12/19 Rx Losartan [Cozaar] 50 mg PO QDAY #30 tablet 06/13/19 09/27/19 08/12/19 Rx amLODIPine 10 mg PO DAILY tablet 06/13/19 09/27/19 09/25/19 Rx 10 mg cloNIDine [Catapres] 0.3 mg PO Q12HR tablet 06/13/19 09/27/19 09/26/19 14:00 Rx hydrALAZINE [Apresoline TAB] 25 mg PO Q8HR #30 tablet 06/13/19 09/27/19 09/25/19 07:00 Rx Metoclopramide [Reglan TAB] 10 mg PO TID PRN #20 tab 06/23/19 09/27/19 08/12/19 Rx Dicyclomine [Bentyl] 20 mg PO QID PRN #20 tablet 08/13/19 09/27/19 Unknown Rx Metoclopramide [Reglan] 10 mg PO TID PRN #20 tab 08/13/19 09/27/19 Unknown Rx Active Medications: Generic Name Dose Route Start Last Admin Trade Name Freq PRN Reason Stop Dose Admin Albuterol/Ipratropium 1 ampul 09/26/19 16:00 09/27/19 13:00 Duoneb *Not For Prn Use* IH 1 ampul QIDRT SANDRINE Administration Amlodipine Besylate 10 mg 09/26/19 16:00 09/27/19 14:42 Amlodipine PO 10 mg DAILY SANDRINE Administration Calcium Acetate 1,334 mg 09/26/19 17:00 09/27/19 12:04 Phoslo PO Not Given TIDWM SANDRINE Clonidine HCl 0.3 mg 09/26/19 16:00 09/27/19 14:43 Catapres PO 0.3 mg Q12HR SANDRINE Administration Dicyclomine HCl 20 mg 09/26/19 15:37 Bentyl PO QID PRN ABDOMINAL PAIN Heparin Sodium (Porcine) 5,000 unit 09/26/19 22:00 09/27/19 09:18 Heparin SUB-Q 5,000 unit Q12HR SANDRINE Administration Hydralazine HCl 25 mg 09/26/19 16:00 09/27/19 14:42 Apresoline PO 25 mg Q8HR SANDRINE Administration Hydromorphone HCl 0.5 mg 09/26/19 18:37 09/27/19 09:18 Dilaudid IV 0.5 mg Q3H PRN Administration Pain , Severe (7-10) Cefepime HCl 1 gm in 100 mls @ 200 mls/hr 09/26/19 20:00 09/26/19 21:01 Cefepime/Ns 1 Gm/100 Ml IV 200 mls/hr Q24H SANDRINE Administration Protocol Nicardipine HCl 50 mg/ Sodium 250 mls @ 25 mls/hr 09/27/19 11:00 Chloride IV TITR SANDRINE Protocol 5 MG/HR Insulin Glargine 20 units 09/26/19 22:00 09/26/19 22:56 Lantus SUB-Q 20 units QHS SANDRINE Administration Insulin Human Lispro 0 unit 09/27/19 11:30 09/27/19 12:04 Humalog SUB-Q Not Given Q6HR SANDRINE Protocol Losartan Potassium 50 mg 09/26/19 16:00 09/27/19 09:17 Cozaar PO 50 mg QDAY SANDRINE Administration Metoclopramide HCl 10 mg 09/26/19 15:37 09/27/19 09:17 Reglan PO 10 mg TID PRN Administration Nausea Metoclopramide HCl 5 mg 09/27/19 12:00 09/27/19 11:20 Reglan IV 5 mg Q6HR SANDRINE Administration Ondansetron HCl 4 mg 09/27/19 09:58 Zofran IV Q8H PRN Nausea And Vomiting
[2019-09-27] MEDS: CEFEPIME/NS 1 GM/100 ML 1 GM/100 ML BAG IV SCH (22:35)
[2019-09-27] MEDS: INSULIN GLARGINE 100 UNITS/ML SUB-Q SCH (22:37)
[2019-09-27] MEDS ORDERED: diphenhydrAMINE 25 MG CAP PO PRN (22:55)
[2019-09-28] MEDS: METOCLOPRAMIDE 10 MG/2 ML INJ IV SCH ×4 (00:37→18:36)
[2019-09-28] MEDS: INSULIN LISPRO 100 UNIT/ML SUB-Q SCH ×4 (00:48→18:40)
[2019-09-28] MEDS: hydrALAZINE 25 MG TAB PO SCH ×3 (06:46→22:21)
--- NOTE | 2019-09-28 06:49 | Progress Note ---
Assessment and Plan CCT 40 min (1) DKA (diabetic ketoacidoses) Current Visit: Yes Status: Acute Qualifiers: Diabetes mellitus type: type 1 Diabetes mellitus complication detail: without coma Qualified Code(s): E10.10 - Type 1 diabetes mellitus with ketoacidosis without coma Plan to address problem: DKA protocol IV Insulin -D/c'd Frequent accuchecks and downgraded to IMCU (2) ESRD (end stage renal disease) on dialysis Current Visit: Yes Status: Acute Plan to address problem: Cont HD (3) HTN (hypertension) Current Visit: Yes Status: Chronic Qualifiers: Hypertension type: essential hypertension Qualified Code(s): I10 - Essential (primary) hypertension Plan to address problem: Cont antihypertensives 4)SIRS IV Abx (5) DVT prophylaxis Current Visit: No Status: Acute Plan to address problem: On Heparin Subjective Date of service: 09/27/19 Principal diagnosis: DKA,ESRD Interval history: Patient is a 38-year-old male who presents emergency room with complaints of shortness of breath. Patient states she was having dialysis became acutely short of breath. Patient states his shortness of breath is better with rest and worse with exertion. Patient denies fever and chills. Patient denies cough. Patient brought in by EMS. EMS states that they picked him up from dialysis and gave her breathing to is a felt that his lungs were tight. Patient never hypoxic. No other treatment given except for patient placed on oxygen.. Symptomatically better. Less vomiting. Tolerating clears Objective - Constitutional Vitals: Vital Signs - 12hr 09/27/19 09/27/19 09/27/19 18:57 19:00 19:11 Temperature Pulse Rate 103 H 102 H 102 H Pulse Rate [ Bilateral Throughout] Pulse Rate [ From Monitor] Respiratory 16 16 17 Rate Respiratory Rate [Bilateral Throughout] Blood Pressure 120/69 120/69 O2 Sat by Pulse 96 96 96 Oximetry 09/27/19 09/27/19 09/27/19 19:21 19:31 19:41 Temperature Pulse Rate 99 H 99 H 100 H Pulse Rate [ Bilateral Throughout] Pulse Rate [ From Monitor] Respiratory 16 16 14 Rate Respiratory Rate [Bilateral Throughout] Blood Pressure 129/69 129/69 129/69 O2 Sat by Pulse 96 95 96 Oximetry 09/27/19 09/27/19 09/27/19 19:50 19:51 20:00 Temperature 98.8 F Pulse Rate 102 H 103 H Pulse Rate [ Bilateral Throughout] Pulse Rate [ 100 H From Monitor] Respiratory 18 18 Rate Respiratory Rate [Bilateral Throughout] Blood Pressure 129/69 146/83 O2 Sat by Pulse 96 99 Oximetry 09/27/19 09/27/19 09/27/19 20:11 20:21 20:31 Temperature Pulse Rate 98 H 99 H 98 H Pulse Rate [ Bilateral Throughout] Pulse Rate [ From Monitor] Respiratory 16 17 13 Rate Respiratory Rate [Bilateral Throughout] Blood Pressure 146/83 146/83 146/83 O2 Sat by Pulse 96 97 97 Oximetry 09/27/19 09/27/19 09/27/19 20:41 20:51 21:00 Temperature Pulse Rate 98 H 102 H 96 H Pulse Rate [ Bilateral Throughout] Pulse Rate [ From Monitor] Respiratory 12 15 16 Rate Respiratory Rate [Bilateral Throughout] Blood Pressure 146/83 146/83 140/79 O2 Sat by Pulse 96 98 97 Oximetry 09/27/19 09/27/19 09/27/19 21:11 21:13 21:21 Temperature Pulse Rate 99 H 105 H Pulse Rate [ 101 H Bilateral Throughout] Pulse Rate [ From Monitor] Respiratory 16 21 Rate Respiratory 17 Rate [Bilateral Throughout] Blood Pressure 140/79 140/79 O2 Sat by Pulse 95 95 Oximetry 09/27/19 09/27/19 09/27/19 21:31 21:41 21:51 Temperature Pulse Rate 102 H 101 H 103 H Pulse Rate [ Bilateral Throughout] Pulse Rate [ From Monitor] Respiratory 14 15 20 Rate Respiratory Rate [Bilateral Throughout] Blood Pressure 140/79 140/79 140/79 O2 Sat by Pulse 94 95 93 Oximetry 09/27/19 09/27/19 09/27/19 22:00 22:01 22:11 Temperature Pulse Rate 100 H 100 H 101 H Pulse Rate [ Bilateral Throughout] Pulse Rate [ From Monitor] Respiratory 15 14 Rate Respiratory Rate [Bilateral Throughout] Blood Pressure 129/70 129/70 O2 Sat by Pulse 91 92 Oximetry 09/27/19 09/27/19 09/27/19 22:21 22:31 22:35 Temperature Pulse Rate 101 H 100 H 102 H Pulse Rate [ Bilateral Throughout] Pulse Rate [ From Monitor] Respiratory 18 16 Rate Respiratory Rate [Bilateral Throughout] Blood Pressure 129/70 129/70 129/70 O2 Sat by Pulse 93 92 Oximetry 09/27/19 09/27/19 09/27/19 22:36 22:40 22:51 Temperature Pulse Rate 102 H 100 H 105 H Pulse Rate [ Bilateral Throughout] Pulse Rate [ From Monitor] Respiratory 15 16 Rate Respiratory Rate [Bilateral Throughout] Blood Pressure 129/70 129/70 129/70 O2 Sat by Pulse 100 93 Oximetry 09/27/19 09/27/19 09/27/19 23:00 23:11 23:21 Temperature Pulse Rate 99 H 102 H 98 H Pulse Rate [ Bilateral Throughout] Pulse Rate [ From Monitor] Respiratory 16 22 18 Rate Respiratory Rate [Bilateral Throughout] Blood Pressure 128/70 129/70 129/70 O2 Sat by Pulse 96 94 96 Oximetry 09/27/19 09/27/19 09/27/19 23:31 23:41 23:43 Temperature Pulse Rate 96 H 96 H 96 H Pulse Rate [ Bilateral Throughout] Pulse Rate [ From Monitor] Respiratory 17 14 16 Rate Respiratory Rate [Bilateral Throughout] Blood Pressure 128/70 128/70 128/70 O2 Sat by Pulse 95 95 95 Oximetry 09/27/19 09/28/19 09/28/19 23:51 00:00 00:11 Temperature 97.8 F Pulse Rate 95 H 96 H 94 H Pulse Rate [ Bilateral Throughout] Pulse Rate [ 94 H From Monitor] Respiratory 15 17 17 Rate Respiratory Rate [Bilateral Throughout] Blood Pressure 128/70 133/67 133/67 O2 Sat by Pulse 93 96 94 Oximetry 09/28/19 09/28/19 09/28/19 00:21 00:31 00:41 Temperature Pulse Rate 95 H 96 H 96 H Pulse Rate [ Bilateral Throughout] Pulse Rate [ From Monitor] Respiratory 17 18 16 Rate Respiratory Rate [Bilateral Throughout] Blood Pressure 133/67 133/67 133/67 O2 Sat by Pulse 96 96 96 Oximetry 09/28/19 09/28/19 09/28/19 00:51 01:00 01:11 Temperature Pulse Rate 95 H 96 H 96 H Pulse Rate [ Bilateral Throughout] Pulse Rate [ From Monitor] Respiratory 17 16 17 Rate Respiratory Rate [Bilateral Throughout] Blood Pressure 133/67 135/73 135/73 O2 Sat by Pulse 92 92 90 Oximetry 09/28/19 09/28/19 09/28/19 01:21 01:31 01:41 Temperature Pulse Rate 93 H 93 H 93 H Pulse Rate [ Bilateral Throughout] Pulse Rate [ From Monitor] Respiratory 16 15 15 Rate Respiratory Rate [Bilateral Throughout] Blood Pressure 135/73 135/73 135/73 O2 Sat by Pulse 92 92 92 Oximetry 09/28/19 09/28/19 09/28/19 01:51 02:00 02:11 Temperature Pulse Rate 94 H 92 H 90 Pulse Rate [ Bilateral Throughout] Pulse Rate [ From Monitor] Respiratory 15 15 28 H Rate Respiratory Rate [Bilateral Throughout] Blood Pressure 135/73 130/69 130/69 O2 Sat by Pulse 95 95 95 Oximetry 09/28/19 09/28/19 09/28/19 02:21 02:31 02:41 Temperature Pulse Rate 89 89 90 Pulse Rate [ Bilateral Throughout] Pulse Rate [ From Monitor] Respiratory 15 15 14 Rate Respiratory Rate [Bilateral Throughout] Blood Pressure 130/69 130/69 130/69 O2 Sat by Pulse 94 95 93 Oximetry 09/28/19 09/28/19 09/28/19 02:51 03:00 03:11 Temperature Pulse Rate 87 87 93 H Pulse Rate [ Bilateral Throughout] Pulse Rate [ From Monitor] Respiratory 16 13 14 Rate Respiratory Rate [Bilateral Throughout] Blood Pressure 130/69 127/77 127/77 O2 Sat by Pulse 90 90 92 Oximetry 09/28/19 09/28/19 09/28/19 03:21 03:31 03:41 Temperature Pulse Rate 85 85 85 Pulse Rate [ Bilateral Throughout] Pulse Rate [ From Monitor] Respiratory 16 15 15 Rate Respiratory Rate [Bilateral Throughout] Blood Pressure 127/77 127/77 127/77 O2 Sat by Pulse 93 93 92 Oximetry 09/28/19 09/28/19 09/28/19 03:51 04:00 04:11 Temperature 97.4 F L Pulse Rate 83 85 84 Pulse Rate [ Bilateral Throughout] Pulse Rate [ 85 From Monitor] Respiratory 13 12 15 Rate Respiratory Rate [Bilateral Throughout] Blood Pressure 127/77 126/76 126/76 O2 Sat by Pulse 96 94 95 Oximetry 09/28/19 09/28/19 09/28/19 04:21 04:31 04:41 Temperature Pulse Rate 85 83 83 Pulse Rate [ Bilateral Throughout] Pulse Rate [ From Monitor] Respiratory 13 15 17 Rate Respiratory Rate [Bilateral Throughout] Blood Pressure 126/76 126/76 126/76 O2 Sat by Pulse 97 95 94 Oximetry 09/28/19 09/28/19 09/28/19 04:51 05:00 05:11 Temperature Pulse Rate 83 83 83 Pulse Rate [ Bilateral Throughout] Pulse Rate [ From Monitor] Respiratory 15 14 15 Rate Respiratory Rate [Bilateral Throughout] Blood Pressure 126/76 128/69 128/69 O2 Sat by Pulse 94 97 94 Oximetry 09/28/19 09/28/19 09/28/19 05:21 05:31 05:41 Temperature Pulse Rate 81 82 83 Pulse Rate [ Bilateral Throughout] Pulse Rate [ From Monitor] Respiratory 19 15 15 Rate Respiratory Rate [Bilateral Throughout] Blood Pressure 128/69 128/69 128/69 O2 Sat by Pulse 94 94 94 Oximetry 09/28/19 09/28/19 09/28/19 05:51 06:00 06:11 Temperature Pulse Rate 83 84 86 Pulse Rate [ Bilateral Throughout] Pulse Rate [ From Monitor] Respiratory 13 13 13 Rate Respiratory Rate [Bilateral Throughout] Blood Pressure 128/69 137/75 137/75 O2 Sat by Pulse 93 95 93 Oximetry 09/28/19 09/28/19 06:21 06:46 Temperature Pulse Rate 87 85 Pulse Rate [ Bilateral Throughout] Pulse Rate [ From Monitor] Respiratory 18 Rate Respiratory Rate [Bilateral Throughout] Blood Pressure 137/75 137/75 O2 Sat by Pulse 97 Oximetry General appearance: Present: no acute distress, well-nourished - EENT Eyes: PERRL, EOM intact ENT: hearing intact, clear oral mucosa Ears: bilateral: normal - Neck Neck: supple, normal ROM - Respiratory Respiratory effort: normal Respiratory: bilateral: CTA - Breasts Breasts: normal - Cardiovascular Rhythm: regular Heart Sounds: Present: S1 & S2. Absent: gallop, rub Extremities: pulses intact, No edema, normal color, Full ROM - Gastrointestinal General gastrointestinal: Present: soft, non-tender, non-distended, normal bowel sounds - Genitourinary Male genitourinary: normal - Integumentary Integumentary: clear, warm, dry - Musculoskeletal Musculoskeletal: 1, strength equal bilaterally - Neurologic Neurologic: moves all extremities - Psychiatric Psychiatric: memory intact, appropriate mood/affect, intact judgment & insight - Labs CBC & Chem 7: 09/26/19 07:30 09/27/19 05:12 Labs: Abnormal lab results 09/27/19 09/27/19 09/27/19 Range/Units 02:04 07:34 11:40 POC Glucose 301 H 169 H 250 H (70-105) 09/27/19 09/27/19 09/28/19 Range/Units 18:06 22:20 00:50 POC Glucose 223 H 276 H 336 H (70-105) 09/28/19 Range/Units 06:49 POC Glucose 180 H (70-105)
[2019-09-28] MEDS: CALCIUM ACETATE 667 MG CAP PO SCH ×3 (08:00→17:18)
[2019-09-28] MEDS: IPRATROPIUM/ALBUTEROL SULFATE 3 ML AMPUL.NEB IH SCH ×3 (09:42→19:38)
[2019-09-28] MEDS ORDERED: ALBUTEROL 2.5 MG/3 ML NEBU IH PRN (09:45)
[2019-09-28] MEDS: LOSARTAN 50 MG TAB PO SCH (09:52)
[2019-09-28] MEDS: amLODIPine 10 MG TAB PO SCH (09:54)
[2019-09-28] MEDS: HEPARIN 5,000 UNIT/1 ML VIAL SUB-Q SCH ×2 (09:54→22:23)
[2019-09-28] MEDS: cloNIDine 0.1 MG TAB PO SCH ×2 (09:54→22:22)
--- NOTE | 2019-09-28 10:23 | Progress Note ---
Assessment and Plan 38 y/o male with known ESRD and diabetes admitted with elevated anion GAP and elevated blood sugar concerning for DKA with abnormal CXR and now this am persistent nausea and vomiting despite HD and insulin drip on yesterday. 1. WEan FiO2 to off for sats >88% 2. Will sign off, call if questions. 3. All others per primary team Subjective Date of service: 09/28/19 Principal diagnosis: DKA,ESRD Interval history: Did not require Cardene drip. Nausea better with scheduled reglan. Remainder is negative. Transferred to Step down, although I thought he was going to the floor. Objective - Constitutional Vitals: Vital Signs - 12hr 09/27/19 09/27/19 09/27/19 22:21 22:31 22:35 Temperature Pulse Rate 101 H 100 H 102 H Pulse Rate [ Anterior Bilateral] Pulse Rate [ From Monitor] Respiratory 18 16 Rate Respiratory Rate [Anterior Bilateral] Blood Pressure 129/70 129/70 129/70 O2 Sat by Pulse 93 92 Oximetry 09/27/19 09/27/19 09/27/19 22:36 22:40 22:51 Temperature Pulse Rate 102 H 100 H 105 H Pulse Rate [ Anterior Bilateral] Pulse Rate [ From Monitor] Respiratory 15 16 Rate Respiratory Rate [Anterior Bilateral] Blood Pressure 129/70 129/70 129/70 O2 Sat by Pulse 100 93 Oximetry 09/27/19 09/27/19 09/27/19 23:00 23:11 23:21 Temperature Pulse Rate 99 H 102 H 98 H Pulse Rate [ Anterior Bilateral] Pulse Rate [ From Monitor] Respiratory 16 22 18 Rate Respiratory Rate [Anterior Bilateral] Blood Pressure 128/70 129/70 129/70 O2 Sat by Pulse 96 94 96 Oximetry 09/27/19 09/27/19 09/27/19 23:31 23:41 23:43 Temperature Pulse Rate 96 H 96 H 96 H Pulse Rate [ Anterior Bilateral] Pulse Rate [ From Monitor] Respiratory 17 14 16 Rate Respiratory Rate [Anterior Bilateral] Blood Pressure 128/70 128/70 128/70 O2 Sat by Pulse 95 95 95 Oximetry 09/27/19 09/28/19 09/28/19 23:51 00:00 00:11 Temperature 97.8 F Pulse Rate 95 H 96 H 94 H Pulse Rate [ Anterior Bilateral] Pulse Rate [ 94 H From Monitor] Respiratory 15 17 17 Rate Respiratory Rate [Anterior Bilateral] Blood Pressure 128/70 133/67 133/67 O2 Sat by Pulse 93 96 94 Oximetry 09/28/19 09/28/19 09/28/19 00:21 00:31 00:41 Temperature Pulse Rate 95 H 96 H 96 H Pulse Rate [ Anterior Bilateral] Pulse Rate [ From Monitor] Respiratory 17 18 16 Rate Respiratory Rate [Anterior Bilateral] Blood Pressure 133/67 133/67 133/67 O2 Sat by Pulse 96 96 96 Oximetry 09/28/19 09/28/19 09/28/19 00:51 01:00 01:11 Temperature Pulse Rate 95 H 96 H 96 H Pulse Rate [ Anterior Bilateral] Pulse Rate [ From Monitor] Respiratory 17 16 17 Rate Respiratory Rate [Anterior Bilateral] Blood Pressure 133/67 135/73 135/73 O2 Sat by Pulse 92 92 90 Oximetry 09/28/19 09/28/19 09/28/19 01:21 01:31 01:41 Temperature Pulse Rate 93 H 93 H 93 H Pulse Rate [ Anterior Bilateral] Pulse Rate [ From Monitor] Respiratory 16 15 15 Rate Respiratory Rate [Anterior Bilateral] Blood Pressure 135/73 135/73 135/73 O2 Sat by Pulse 92 92 92 Oximetry 09/28/19 09/28/19 09/28/19 01:51 02:00 02:11 Temperature Pulse Rate 94 H 92 H 90 Pulse Rate [ Anterior Bilateral] Pulse Rate [ From Monitor] Respiratory 15 15 28 H Rate Respiratory Rate [Anterior Bilateral] Blood Pressure 135/73 130/69 130/69 O2 Sat by Pulse 95 95 95 Oximetry 09/28/19 09/28/19 09/28/19 02:21 02:31 02:41 Temperature Pulse Rate 89 89 90 Pulse Rate [ Anterior Bilateral] Pulse Rate [ From Monitor] Respiratory 15 15 14 Rate Respiratory Rate [Anterior Bilateral] Blood Pressure 130/69 130/69 130/69 O2 Sat by Pulse 94 95 93 Oximetry 09/28/19 09/28/19 09/28/19 02:51 03:00 03:11 Temperature Pulse Rate 87 87 93 H Pulse Rate [ Anterior Bilateral] Pulse Rate [ From Monitor] Respiratory 16 13 14 Rate Respiratory Rate [Anterior Bilateral] Blood Pressure 130/69 127/77 127/77 O2 Sat by Pulse 90 90 92 Oximetry 09/28/19 09/28/19 09/28/19 03:21 03:31 03:41 Temperature Pulse Rate 85 85 85 Pulse Rate [ Anterior Bilateral] Pulse Rate [ From Monitor] Respiratory 16 15 15 Rate Respiratory Rate [Anterior Bilateral] Blood Pressure 127/77 127/77 127/77 O2 Sat by Pulse 93 93 92 Oximetry 09/28/19 09/28/19 09/28/19 03:51 04:00 04:11 Temperature 97.4 F L Pulse Rate 83 85 84 Pulse Rate [ Anterior Bilateral] Pulse Rate [ 85 From Monitor] Respiratory 13 12 15 Rate Respiratory Rate [Anterior Bilateral] Blood Pressure 127/77 126/76 126/76 O2 Sat by Pulse 96 94 95 Oximetry 09/28/19 09/28/19 09/28/19 04:21 04:31 04:41 Temperature Pulse Rate 85 83 83 Pulse Rate [ Anterior Bilateral] Pulse Rate [ From Monitor] Respiratory 13 15 17 Rate Respiratory Rate [Anterior Bilateral] Blood Pressure 126/76 126/76 126/76 O2 Sat by Pulse 97 95 94 Oximetry 09/28/19 09/28/19 09/28/19 04:51 05:00 05:11 Temperature Pulse Rate 83 83 83 Pulse Rate [ Anterior Bilateral] Pulse Rate [ From Monitor] Respiratory 15 14 15 Rate Respiratory Rate [Anterior Bilateral] Blood Pressure 126/76 128/69 128/69 O2 Sat by Pulse 94 97 94 Oximetry 09/28/19 09/28/19 09/28/19 05:21 05:31 05:41 Temperature Pulse Rate 81 82 83 Pulse Rate [ Anterior Bilateral] Pulse Rate [ From Monitor] Respiratory 19 15 15 Rate Respiratory Rate [Anterior Bilateral] Blood Pressure 128/69 128/69 128/69 O2 Sat by Pulse 94 94 94 Oximetry 09/28/19 09/28/19 09/28/19 05:51 06:00 06:11 Temperature Pulse Rate 83 84 86 Pulse Rate [ Anterior Bilateral] Pulse Rate [ From Monitor] Respiratory 13 13 13 Rate Respiratory Rate [Anterior Bilateral] Blood Pressure 128/69 137/75 137/75 O2 Sat by Pulse 93 95 93 Oximetry 09/28/19 09/28/19 09/28/19 06:21 06:46 09:33 Temperature Pulse Rate 87 85 Pulse Rate [ Anterior Bilateral] Pulse Rate [ From Monitor] Respiratory 18 Rate Respiratory Rate [Anterior Bilateral] Blood Pressure 137/75 137/75 O2 Sat by Pulse 97 98 Oximetry 09/28/19 09/28/19 09/28/19 09:42 09:44 09:52 Temperature Pulse Rate 92 H Pulse Rate [ 85 Anterior Bilateral] Pulse Rate [ From Monitor] Respiratory Rate Respiratory 14 Rate [Anterior Bilateral] Blood Pressure 122/66 O2 Sat by Pulse 99 Oximetry 09/28/19 09:54 Temperature Pulse Rate 92 H Pulse Rate [ Anterior Bilateral] Pulse Rate [ From Monitor] Respiratory Rate Respiratory Rate [Anterior Bilateral] Blood Pressure 122/66 O2 Sat by Pulse Oximetry - Labs CBC & Chem 7: 09/26/19 07:30 09/27/19 05:12 Labs: Abnormal lab results 09/27/19 09/27/19 09/27/19 Range/Units 11:40 18:06 22:20 POC Glucose 250 H 223 H 276 H (70-105) 09/28/19 09/28/19 Range/Units 00:50 06:49 POC Glucose 336 H 180 H (70-105) Medications & Allergies - Medications Allergies/Adverse Reactions: Allergies cefazolin [From [facility]] Allergy (Verified 07/21/18 13:02) Vomiting shellfish derived Allergy (Verified 06/08/18 15:09) Anaphylaxis iodine Adverse Reaction (Severe, Verified 06/08/18 15:09) Vomiting IV dye Adverse Reaction (Severe, Uncoded 04/28/18 08:49) Vomiting Home Medications: Home Medications Medication Instructions Recorded Confirmed Last Taken Type Insulin Regular, Human [Novolin R] 3 - 5 unit SQ TID 06/05/19 09/27/19 08/12/19 History Calcium Acetate [Phoslo] 1,334 mg PO TIDWM capsule 06/13/19 09/27/19 08/12/19 Rx Insulin Glargine [Lantus VIAL] 20 units SUB-Q QHS 30 Days units 06/13/19 09/27/19 08/12/19 Rx Losartan [Cozaar] 50 mg PO QDAY #30 tablet 06/13/19 09/27/19 08/12/19 Rx amLODIPine 10 mg PO DAILY tablet 06/13/19 09/27/19 09/25/19 Rx 10 mg cloNIDine [Catapres] 0.3 mg PO Q12HR tablet 06/13/19 09/27/19 09/26/19 14:00 Rx hydrALAZINE [Apresoline TAB] 25 mg PO Q8HR #30 tablet 08/05/2509/27/19 09/25/19 07:00 Rx Metoclopramide [Reglan TAB] 10 mg PO TID PRN #20 tab 06/23/19 09/27/19 08/12/19 Rx Dicyclomine [Bentyl] 20 mg PO QID PRN #20 tablet 08/13/19 09/27/19 Unknown Rx Metoclopramide [Reglan] 10 mg PO TID PRN #20 tab 08/13/19 09/27/19 Unknown Rx Active Medications: Generic Name Dose Route Start Last Admin Trade Name Freq PRN Reason Stop Dose Admin Albuterol 2.5 mg 09/28/19 09:45 Proventil IH Q4HRT PRN Shortness Of Breath Albuterol/Ipratropium 1 ampul 09/28/19 14:00 Duoneb *Not For Prn Use* IH TIDRT SANDRINE Amlodipine Besylate 10 mg 09/26/19 16:00 09/28/19 09:54 Amlodipine PO 10 mg DAILY SANDRINE Administration Calcium Acetate 1,334 mg 09/26/19 17:00 09/28/19 08:00 Phoslo PO Not Given TIDWM SANDRINE Clonidine HCl 0.3 mg 09/26/19 16:00 09/28/19 09:54 Catapres PO 0.3 mg Q12HR SANDRINE Administration Dicyclomine HCl 20 mg 09/26/19 15:37 Bentyl PO QID PRN ABDOMINAL PAIN Diphenhydramine HCl 25 mg 09/27/19 22:55 09/27/19 23:37 Benadryl PO 25 mg QHS PRN Administration Sleep Heparin Sodium (Porcine) 5,000 unit 09/26/19 22:00 09/28/19 09:54 Heparin SUB-Q 5,000 unit Q12HR SANDRINE Administration Hydralazine HCl 25 mg 09/26/19 16:00 09/28/19 06:46 Apresoline PO 25 mg Q8HR SANDRINE Administration Hydromorphone HCl 0.5 mg 09/26/19 18:37 09/27/19 09:18 Dilaudid IV 0.5 mg Q3H PRN Administration Pain , Severe (7-10) Cefepime HCl 1 gm in 100 mls @ 200 mls/hr 09/26/19 20:00 09/27/19 22:35 Cefepime/Ns 1 Gm/100 Ml IV 09/30/19 20:29 200 mls/hr Q24H SANDRINE Administration Protocol Insulin Glargine 20 units 09/26/19 22:00 09/27/19 22:37 Lantus SUB-Q 20 units QHS SANDRINE Administration Insulin Human Lispro 0 unit 09/27/19 11:30 09/28/19 06:47 Humalog SUB-Q 3 unit Q6HR SANDRINE Administration Protocol Losartan Potassium 50 mg 09/26/19 16:00 09/28/19 09:52 Cozaar PO 50 mg QDAY SANDRINE Administration Metoclopramide HCl 10 mg 09/26/19 15:37 09/27/19 09:17 Reglan PO 10 mg TID PRN Administration Nausea Metoclopramide HCl 5 mg 09/27/19 12:00 09/28/19 06:38 Reglan IV Not Given Q6HR [facility] Ondansetron HCl 4 mg 09/27/19 09:58 Zofran IV Q8H PRN Nausea And Vomiting
--- NOTE | 2019-09-28 15:05 | Progress Note ---
Assessment and Plan Assessment and plan: -- DKA (diabetic ketoacidoses) Current Visit: Yes Status: Acute DKA protocol Insulin drip-D/c'd Frequent accuchecks SSC,ADA diet Long acting Insulin -- ESRD (end stage renal disease) on dialysis Current Visit: Yes Status: Acute Cont HD per schedule Nephrology following --Community acquired pneumonia:POA Empiric antibiotics. Follow cultures , supportive care -- HTN (hypertension) Current Visit: Yes Status: Chronic . Cont antihypertensives.PRN meds, --SIRS:Emperic antibiotics -- DVT prophylaxis Current Visit: No Status: Acute Plan to address problem: On Heparin possible DC in 1-2 days Stable to transfer to Med floor History Interval history: Patient seen and examined,med records reviewed. Admitted with DKA, off insulin drip Feels better,no new complaints Vitals reviewed Hospitalist Physical - Constitutional Vitals: Temp Pulse Resp BP Pulse Ox 97.9 F 93 H 18 124/71 99 09/28/19 10:18 09/28/19 13:15 09/28/19 10:18 09/28/19 13:15 09/28/19 09:44 General appearance: Present: no acute distress, well-nourished - EENT Eyes: Present: PERRL, EOM intact - Neck Neck: Present: supple, normal ROM - Respiratory Respiratory effort: normal Respiratory: bilateral: diminished, negative: rales, rhonchi, wheezing - Cardiovascular Rhythm: regular Heart Sounds: Present: S1 & S2 - Extremities Extremities: no ischemia, No edema - Abdominal General gastrointestinal: soft, non-tender, non-distended, normal bowel sounds - Integumentary Integumentary: Present: clear, warm - Psychiatric Psychiatric: appropriate mood/affect, cooperative - Neurologic Neurologic: CNII-XII intact, moves all extremities Results - Labs CBC & Chem 7: 09/29/19 10:40 09/27/19 05:12 Labs: Laboratory Last Values WBC 18.6 K/mm3 (4.5-11.0) H 09/26/19 07:30 RBC 3.89 M/mm3 (3.65-5.03) 09/26/19 07:30 Hgb 11.8 gm/dl (11.8-15.2) 09/26/19 07:30 Hct 36.3 % (35.5-45.6) 09/26/19 07:30 MCV 93 fl (84-94) 09/26/19 07:30 MCH 30 pg (28-32) 09/26/19 07:30 MCHC 33 % (32-34) 09/26/19 07:30 RDW 16.1 % (13.2-15.2) H 09/26/19 07:30 Plt Count 129 K/mm3 (140-440) L 09/26/19 07:30 Lymph % (Auto) 11.3 % (13.4-35.0) L 09/26/19 07:30 [place] % (Auto) 5.4 % (0.0-7.3) 09/26/19 07:30 Eos % (Auto) 0.1 % (0.0-4.3) 09/26/19 07:30 Baso % (Auto) 0.3 % (0.0-1.8) 09/26/19 07:30 Lymph # 2.1 K/mm3 (1.2-5.4) 09/26/19 07:30 [place]ami # 1.0 K/mm3 (0.0-0.8) H 09/26/19 07:30 Eos # 0.0 K/mm3 (0.0-0.4) 09/26/19 07:30 Baso # 0.1 K/mm3 (0.0-0.1) 09/26/19 07:30 Seg Neutrophils % 82.9 % (40.0-70.0) H 09/26/19 07:30 Seg Neutrophils # 15.4 K/mm3 (1.8-7.7) H 09/26/19 07:30 VBG pH 7.297 (7.320-7.420) L 09/26/19 10:05 Sodium 138 mmol/L (137-145) 09/27/19 05:12 Potassium 3.9 mmol/L (3.6-5.0) 09/27/19 05:12 Chloride 97.6 mmol/L (98-107) L 09/27/19 05:12 Carbon Dioxide 22 mmol/L (22-30) 09/27/19 05:12 Anion Gap 22 mmol/L 09/27/19 05:12 BUN 32 mg/dL (9-20) H 09/27/19 05:12 Creatinine 8.9 mg/dL (0.8-1.5) H 09/27/19 05:12 Estimated GFR 8 ml/min 09/27/19 05:12 BUN/Creatinine Ratio 4 % 09/27/19 05:12 Glucose 188 mg/dL (75-100) H 09/27/19 05:12 POC Glucose 180 (70-105) H 09/28/19 06:49 Ketones Quantitative Negative (Negative) 09/26/19 10:05 Calcium 9.1 mg/dL (8.4-10.2) 09/27/19 05:12 Phosphorus 2.90 mg/dL (2.5-4.5) 09/26/19 10:05 Magnesium 2.00 mg/dL (1.7-2.3) 09/26/19 10:05 Total Bilirubin 0.30 mg/dL (0.1-1.2) 09/26/19 07:30 AST 12 units/L (5-40) 09/26/19 07:30 ALT 13 units/L (7-56) 09/26/19 07:30 Alkaline Phosphatase 73 units/L (35-129) 09/26/19 07:30 Total Creatine Kinase 149 units/L (55-170) 09/26/19 07:30 CK-MB (CK-2) 10.5 ng/mL (0.0-4.0) H 09/26/19 07:30 CK-MB (CK-2) Rel Index 7.0 (0-4) H 09/26/19 07:30 Troponin T 0.258 ng/mL (0.00-0.029) H* 09/26/19 07:30 Total Protein 7.3 g/dL (6.3-8.2) 09/26/19 07:30 Albumin 4.0 g/dL (3.9-5) 09/26/19 07:30 Albumin/Globulin Ratio 1.2 % 09/26/19 07:30 Triglycerides 179 mg/dL (2-149) H 09/26/19 07:30 Cholesterol 140 mg/dL (50-199) 09/26/19 07:30 LDL Cholesterol Direct 83 mg/dL (50-130) 09/26/19 07:30 HDL Cholesterol 41 mg/dL (40-59) 09/26/19 07:30 Cholesterol/HDL Ratio 3.41 % 09/26/19 07:30 Hepatitis A IgM Ab Non-reactive (NonReactive) 09/26/19 14:57 Hep Bs Antigen Non-reactive (Negative) 09/26/19 14:57 Hep B Core IgM Ab Non-reactive (NonReactive) 09/26/19 14:57 Hepatitis C Antibody Non-reactive (NonReactive) 09/26/19 14:57 Active Medications - Current Medications Current Medications: Generic Name Dose Route Start Last Admin Trade Name Freq PRN Reason Stop Dose Admin Albuterol 2.5 mg 09/28/19 09:45 Proventil IH Q4HRT PRN Shortness Of Breath Albuterol/Ipratropium 1 ampul 09/28/19 14:00 09/28/19 13:53 Duoneb *Not For Prn Use* IH Not Given TIDRT SANDRINE Amlodipine Besylate 10 mg 09/26/19 16:00 09/28/19 09:54 Amlodipine PO 10 mg DAILY SANDRINE Administration Calcium Acetate 1,334 mg 09/26/19 17:00 09/28/19 08:00 Phoslo PO Not Given TIDWM SANDRINE Clonidine HCl 0.3 mg 09/26/19 16:00 09/28/19 09:54 Catapres PO 0.3 mg Q12HR SANDRINE Administration Dicyclomine HCl 20 mg 09/26/19 15:37 Bentyl PO QID PRN ABDOMINAL PAIN Diphenhydramine HCl 25 mg 09/27/19 22:55 09/27/19 23:37 Benadryl PO 25 mg QHS PRN Administration Sleep Heparin Sodium (Porcine) 5,000 unit 09/26/19 22:00 09/28/19 09:54 Heparin SUB-Q 5,000 unit Q12HR SANDRINE Administration Hydralazine HCl 25 mg 09/26/19 16:00 09/28/19 06:46 Apresoline PO 25 mg Q8HR SANDRINE Administration Hydromorphone HCl 0.5 mg 09/26/19 18:37 09/27/19 09:18 Dilaudid IV 0.5 mg Q3H PRN Administration Pain , Severe (7-10) Cefepime HCl 1 gm in 100 mls @ 200 mls/hr 09/26/19 20:00 09/27/19 22:35 Cefepime/Ns 1 Gm/100 Ml IV 09/30/19 20:29 200 mls/hr Q24H SANDRINE Administration Protocol Insulin Glargine 20 units 09/26/19 22:00 09/27/19 22:37 Lantus SUB-Q 20 units QHS SANDRINE Administration Insulin Human Lispro 0 unit 09/27/19 11:30 09/28/19 06:47 Humalog SUB-Q 3 unit Q6HR SANDRINE Administration Protocol Losartan Potassium 50 mg 09/26/19 16:00 09/28/19 09:52 Cozaar PO 50 mg QDAY SANDRINE Administration Metoclopramide HCl 10 mg 09/26/19 15:37 09/27/19 09:17 Reglan PO 10 mg TID PRN Administration Nausea Metoclopramide HCl 5 mg 09/27/19 12:00 09/28/19 06:38 Reglan IV Not Given Q6HR ON LICENSE OF [facility] Ondansetron HCl 4 mg 09/27/19 09:58 Zofran IV Q8H PRN Nausea And Vomiting
--- NOTE | 2019-09-28 16:52 | Progress Note ---
Assessment and Plan - Patient Problems (1) ESRD (end stage renal disease) on dialysis Current Visit: Yes Status: Acute Plan to address problem: End-stage renal disease Chest x-ray with pulmonary congestion Received dialysis continue dialysis Tuesday Repeat dialysis tomorrow for volume overload (2) Acidosis Current Visit: Yes Status: Acute Plan to address problem: Metabolic acidosis Secondary to chronic kidney disease (3) Anemia Current Visit: No Status: Acute Qualifiers: Chronic kidney disease stage: on chronic dialysis Plan to address problem: Mild anemia secondary to chronic kidney disease Hold epogen Monitor CBC (4) Acute respiratory failure Current Visit: No Status: Resolved Qualifiers: Respiratory failure complication: hypoxia Qualified Code(s): J96.01 - Acute respiratory failure with hypoxia Plan to address problem: Acute respiratory failure resolving Chest x-ray revealed bilateral patchy opacities possible edema versus infection on admission. repeat CXR improved Wean oxygen as tolerated Subjective Principal diagnosis: DKA,ESRD Interval history: 38-year-old gentleman with medical history significant for hypertension uncontrolled, diabetes mellitus type 2, end-stage renal disease on hemodialysis on hemodialysis by right upper arm graft admitted with complaint of shortness of breath and reports associated orthopnea and PND. Denies any chills denies any abdominal pain denies any sick contacts reports a headache received fluid and antibiotics in the emergency room is reports his dry weight is about 89 kg The patient seen today Completed dialysis shortness of breath improved. But remains on oxygen Objective - Vital Signs Vital signs: Vital Signs - 12hr 09/28/19 09/28/19 09/28/19 04:51 05:00 05:11 Temperature Pulse Rate 83 83 83 Pulse Rate [ Anterior Bilateral] Respiratory 15 14 15 Rate Respiratory Rate [Anterior Bilateral] Blood Pressure 126/76 128/69 128/69 O2 Sat by Pulse 94 97 94 Oximetry O2 Sat by Pulse Oximetry [ Anterior Bilateral] 09/28/19 09/28/19 09/28/19 05:21 05:31 05:41 Temperature Pulse Rate 81 82 83 Pulse Rate [ Anterior Bilateral] Respiratory 19 15 15 Rate Respiratory Rate [Anterior Bilateral] Blood Pressure 128/69 128/69 128/69 O2 Sat by Pulse 94 94 94 Oximetry O2 Sat by Pulse Oximetry [ Anterior Bilateral] 09/28/19 09/28/19 09/28/19 05:51 06:00 06:11 Temperature Pulse Rate 83 84 86 Pulse Rate [ Anterior Bilateral] Respiratory 13 13 13 Rate Respiratory Rate [Anterior Bilateral] Blood Pressure 128/69 137/75 137/75 O2 Sat by Pulse 93 95 93 Oximetry O2 Sat by Pulse Oximetry [ Anterior Bilateral] 09/28/19 09/28/19 09/28/19 06:21 06:46 07:00 Temperature Pulse Rate 87 85 83 Pulse Rate [ Anterior Bilateral] Respiratory 18 15 Rate Respiratory Rate [Anterior Bilateral] Blood Pressure 137/75 137/75 131/76 O2 Sat by Pulse 97 94 Oximetry O2 Sat by Pulse Oximetry [ Anterior Bilateral] 09/28/19 09/28/19 09/28/19 07:11 07:21 07:31 Temperature Pulse Rate 82 82 85 Pulse Rate [ Anterior Bilateral] Respiratory 14 14 11 L Rate Respiratory Rate [Anterior Bilateral] Blood Pressure 131/76 131/76 131/76 O2 Sat by Pulse 93 93 93 Oximetry O2 Sat by Pulse Oximetry [ Anterior Bilateral] 09/28/19 09/28/19 09/28/19 07:41 07:51 08:00 Temperature Pulse Rate 82 82 83 Pulse Rate [ Anterior Bilateral] Respiratory 14 15 13 Rate Respiratory Rate [Anterior Bilateral] Blood Pressure 131/76 131/76 127/73 O2 Sat by Pulse 94 93 92 Oximetry O2 Sat by Pulse Oximetry [ Anterior Bilateral] 09/28/19 09/28/19 09/28/19 08:11 08:20 08:31 Temperature Pulse Rate 82 84 83 Pulse Rate [ Anterior Bilateral] Respiratory 15 14 15 Rate Respiratory Rate [Anterior Bilateral] Blood Pressure 127/73 127/73 127/73 O2 Sat by Pulse 94 94 95 Oximetry O2 Sat by Pulse Oximetry [ Anterior Bilateral] 09/28/19 09/28/19 09/28/19 08:41 08:51 09:00 Temperature Pulse Rate 86 82 85 Pulse Rate [ Anterior Bilateral] Respiratory 14 18 17 Rate Respiratory Rate [Anterior Bilateral] Blood Pressure 125/69 127/73 132/78 O2 Sat by Pulse 94 93 96 Oximetry O2 Sat by Pulse Oximetry [ Anterior Bilateral] 09/28/19 09/28/19 09/28/19 09:11 09:21 09:31 Temperature Pulse Rate 84 83 87 Pulse Rate [ Anterior Bilateral] Respiratory 15 15 18 Rate Respiratory Rate [Anterior Bilateral] Blood Pressure 132/78 132/78 132/78 O2 Sat by Pulse 96 96 98 Oximetry O2 Sat by Pulse Oximetry [ Anterior Bilateral] 09/28/19 09/28/19 09/28/19 09:33 09:41 09:42 Temperature Pulse Rate 89 Pulse Rate [ 85 Anterior Bilateral] Respiratory 12 Rate Respiratory 14 Rate [Anterior Bilateral] Blood Pressure 132/78 O2 Sat by Pulse 98 96 Oximetry O2 Sat by Pulse Oximetry [ Anterior Bilateral] 09/28/19 09/28/19 09/28/19 09:44 09:51 09:52 Temperature Pulse Rate 91 H 92 H Pulse Rate [ Anterior Bilateral] Respiratory 17 Rate Respiratory Rate [Anterior Bilateral] Blood Pressure 122/66 122/66 O2 Sat by Pulse 99 98 Oximetry O2 Sat by Pulse Oximetry [ Anterior Bilateral] 09/28/19 09/28/19 09/28/19 09:54 10:00 10:18 Temperature 97.9 F Pulse Rate 92 H 97 H 100 H Pulse Rate [ Anterior Bilateral] Respiratory 16 18 Rate Respiratory Rate [Anterior Bilateral] Blood Pressure 122/66 129/66 124/65 O2 Sat by Pulse 96 Oximetry O2 Sat by Pulse 98 Oximetry [ Anterior Bilateral] 09/28/19 09/28/19 09/28/19 10:30 10:45 11:00 Temperature Pulse Rate 95 H 99 H 99 H Pulse Rate [ Anterior Bilateral] Respiratory Rate Respiratory Rate [Anterior Bilateral] Blood Pressure 124/68 128/70 121/60 O2 Sat by Pulse Oximetry O2 Sat by Pulse Oximetry [ Anterior Bilateral] 09/28/19 09/28/19 09/28/19 11:15 11:30 11:45 Temperature Pulse Rate 93 H 94 H 93 H Pulse Rate [ Anterior Bilateral] Respiratory Rate Respiratory Rate [Anterior Bilateral] Blood Pressure 121/67 121/66 119/60 O2 Sat by Pulse Oximetry O2 Sat by Pulse Oximetry [ Anterior Bilateral] 09/28/19 09/28/19 09/28/19 12:00 12:15 12:30 Temperature Pulse Rate 94 H 94 H 92 H Pulse Rate [ Anterior Bilateral] Respiratory Rate Respiratory Rate [Anterior Bilateral] Blood Pressure 124/66 126/71 117/64 O2 Sat by Pulse Oximetry O2 Sat by Pulse Oximetry [ Anterior Bilateral] 09/28/19 09/28/19 09/28/19 12:45 13:00 13:15 Temperature Pulse Rate 92 H 94 H 93 H Pulse Rate [ Anterior Bilateral] Respiratory Rate Respiratory Rate [Anterior Bilateral] Blood Pressure 131/73 131/76 124/71 O2 Sat by Pulse Oximetry O2 Sat by Pulse Oximetry [ Anterior Bilateral] 09/28/19 09/28/19 09/28/19 15:21 15:30 15:31 Temperature Pulse Rate 96 H 92 H 95 H Pulse Rate [ Anterior Bilateral] Respiratory 20 Rate Respiratory Rate [Anterior Bilateral] Blood Pressure 124/73 117/70 124/73 O2 Sat by Pulse 97 94 Oximetry O2 Sat by Pulse Oximetry [ Anterior Bilateral] 09/28/19 09/28/19 09/28/19 15:41 15:45 15:51 Temperature Pulse Rate 92 H 90 95 H Pulse Rate [ Anterior Bilateral] Respiratory 16 16 Rate Respiratory Rate [Anterior Bilateral] Blood Pressure 124/73 117/67 124/73 O2 Sat by Pulse 96 94 Oximetry O2 Sat by Pulse Oximetry [ Anterior Bilateral] 09/28/19 09/28/19 16:00 16:04 Temperature 98.6 F Pulse Rate 94 H 89 Pulse Rate [ Anterior Bilateral] Respiratory Rate Respiratory Rate [Anterior Bilateral] Blood Pressure 115/61 123/66 O2 Sat by Pulse Oximetry O2 Sat by Pulse Oximetry [ Anterior Bilateral] - General Appearance General appearance: well-developed, well-nourished EENT: ATNC, PERRL, mucous membranes moist Neck: no JVD Respiratory: Present: Decreased Breath Sounds Cardiology: regular, S1S2 Gastrointestinal: normal, normoactive bowel sounds Integumentary: no rash Neurologic: alert and oriented x3, CN 3-12 intact Psychiatric: mood/affect appropriate - Lab 09/26/19 07:30 09/27/19 05:12 Most recent lab results Calcium 9.1 mg/dL (8.4-10.2) 09/27/19 05:12 Phosphorus 2.90 mg/dL (2.5-4.5) 09/26/19 10:05 Magnesium 2.00 mg/dL (1.7-2.3) 09/26/19 10:05 - Imaging Chest x-ray: image reviewed ( I reviewed chest x-ray which showed edema) Medications & Allergies - Medications Allergies/Adverse Reactions: Allergies cefazolin [From Anc] Allergy (Verified 07/21/18 13:02) Vomiting shellfish derived Allergy (Verified 06/08/18 15:09) Anaphylaxis iodine Adverse Reaction (Severe, Verified 06/08/18 15:09) Vomiting IV dye Adverse Reaction (Severe, Uncoded 04/28/18 08:49) Vomiting Home Medications: Home Medications Medication Instructions Recorded Confirmed Last Taken Type Insulin Regular, Human [Novolin R] 3 - 5 unit SQ TID 06/05/19 09/27/19 08/12/19 History Calcium Acetate [Phoslo] 1,334 mg PO TIDWM capsule 06/13/19 09/27/19 08/12/19 Rx Insulin Glargine [Lantus VIAL] 20 units SUB-Q QHS 30 Days units 06/13/19 09/27/19 08/12/19 Rx Losartan [Cozaar] 50 mg PO QDAY #30 tablet 06/13/19 09/27/19 08/12/19 Rx amLODIPine 10 mg PO DAILY tablet 06/13/19 09/27/19 09/25/19 Rx 10 mg cloNIDine [Catapres] 0.3 mg PO Q12HR tablet 06/13/19 09/27/19 09/26/19 14:00 Rx hydrALAZINE [Apresoline TAB] 25 mg PO Q8HR #30 tablet 06/13/19 09/27/19 09/25/19 07:00 Rx Metoclopramide [Reglan TAB] 10 mg PO TID PRN #20 tab 06/23/19 09/27/19 08/12/19 Rx Dicyclomine [Bentyl] 20 mg PO QID PRN #20 tablet 08/13/19 09/27/19 Unknown Rx Metoclopramide [Reglan] 10 mg PO TID PRN #20 tab 08/13/19 09/27/19 Unknown Rx Active Medications: Generic Name Dose Route Start Last Admin Trade Name Freq PRN Reason Stop Dose Admin Albuterol 2.5 mg 09/28/19 09:45 Proventil IH Q4HRT PRN Shortness Of Breath Albuterol/Ipratropium 1 ampul 09/28/19 14:00 09/28/19 13:53 Duoneb *Not For Prn Use* IH Not Given TIDRT SANDRINE Amlodipine Besylate 10 mg 09/26/19 16:00 09/28/19 09:54 Amlodipine PO 10 mg DAILY SANDRINE Administration Calcium Acetate 1,334 mg 09/26/19 17:00 09/28/19 12:00 Phoslo PO Not Given TIDWM SANDRINE Clonidine HCl 0.3 mg 09/26/19 16:00 09/28/19 09:54 Catapres PO 0.3 mg Q12HR SANDRINE Administration Dicyclomine HCl 20 mg 09/26/19 15:37 Bentyl PO QID PRN ABDOMINAL PAIN Diphenhydramine HCl 25 mg 09/27/19 22:55 09/27/19 23:37 Benadryl PO 25 mg QHS PRN Administration Sleep Heparin Sodium (Porcine) 5,000 unit 09/26/19 22:00 09/28/19 09:54 Heparin SUB-Q 5,000 unit Q12HR SANDRINE Administration Hydralazine HCl 25 mg 09/26/19 16:00 09/28/19 14:00 Apresoline PO Not Given Q8HR REPLACED BY [facility] Hydromorphone HCl 0.5 mg 09/26/19 18:37 09/27/19 09:18 Dilaudid IV 0.5 mg Q3H PRN Administration Pain , Severe (7-10) Cefepime HCl 1 gm in 100 mls @ 200 mls/hr 09/26/19 20:00 09/27/19 22:35 Cefepime/Ns 1 Gm/100 Ml IV 09/30/19 20:29 200 mls/hr Q24H REPLACED BY [facility] Administration Protocol Insulin Glargine 20 units 09/26/19 22:00 09/27/19 22:37 Lantus SUB-Q 20 units QHS REPLACED BY [facility] Administration Insulin Human Lispro 0 unit 09/27/19 11:30 09/28/19 12:00 Humalog SUB-Q Not Given Q6HR REPLACED BY [facility] Protocol Losartan Potassium 50 mg 09/26/19 16:00 09/28/19 09:52 Cozaar PO 50 mg QDAY SANDRINE Administration Metoclopramide HCl 10 mg 09/26/19 15:37 09/27/19 09:17 Reglan PO 10 mg TID PRN Administration Nausea Metoclopramide HCl 5 mg 09/27/19 12:00 09/28/19 12:00 Reglan IV Not Given Q6HR REPLACED BY [facility] Ondansetron HCl 4 mg 09/27/19 09:58 Zofran IV Q8H PRN Nausea And Vomiting
[2019-09-28] MEDS ORDERED: SODIUM CHLORIDE*PRIMING MACHINE ONLY FOR DIALYSIS MC ONE (17:39)
[2019-09-28] MEDS: CEFEPIME/NS 1 GM/100 ML 1 GM/100 ML BAG IV SCH (21:50)
[2019-09-28] MEDS: INSULIN GLARGINE 100 UNITS/ML SUB-Q SCH (22:22)
[2019-09-29] MEDS: METOCLOPRAMIDE 10 MG/2 ML INJ IV SCH ×3 (01:15→12:42)
[2019-09-29] MEDS: INSULIN LISPRO 100 UNIT/ML SUB-Q SCH ×7 (01:15→18:14)
[2019-09-29] MEDS: hydrALAZINE 25 MG TAB PO SCH ×3 (06:41→20:45)
[2019-09-29] MEDS ORDERED: INSULIN GLARGINE 100 UNITS/ML SUB-Q SCH (08:20)
[2019-09-29] MEDS: CALCIUM ACETATE 667 MG CAP PO SCH ×3 (09:00→17:10)
[2019-09-29] MEDS: IPRATROPIUM/ALBUTEROL SULFATE 3 ML AMPUL.NEB IH SCH ×3 (09:04→19:33)
[2019-09-29 10:55] LABS: Basophils # (Auto) 0.1 K/mm3 (0.0-0.1); Basophils % (Auto) 0.6 % (0.0-1.8); Eosinophils # (Auto) 0.2 K/mm3 (0.0-0.4); Eosinophils % (Auto) 2.3 % (0.0-4.3); Hematocrit 33.1 % (35.5-45.6); Hemoglobin 10.8 gm/dl (11.8-15.2); Lymphocytes # (Auto) 1.4 K/mm3 (1.2-5.4); Lymphocytes % (Auto) 14.3 % (13.4-35.0); Mean Corpuscular HGB Conc 33 % (32-34); Mean Corpuscular Volume 93 fl (84-94); Monocytes # (Auto) 0.7 K/mm3 (0.0-0.8); Monocytes % (Auto) 6.8 % (0.0-7.3); Platelet Count 136 K/mm3 (140-440); Red Blood Count 3.54 M/mm3 (3.65-5.03); Red Cell Distribution Width 16.3 % (13.2-15.2)
[2019-09-29] MEDS: cloNIDine 0.1 MG TAB PO SCH ×2 (12:48→20:44)
--- NOTE | 2019-09-29 14:41 | Progress Note ---
Assessment and Plan Impression: * End stage renal disease * diabetic gastroparesis * Lactic acidosis * Elevated troponin, chronic * Type I DM * Hypertension * Anemia secondary to ESRD * Secondary hyperparathyroidism Plan: * Schedule patient for hemodialysis today * Keep him on MWF schedule as outpatient . * Clinically does not appear to be volume overloaded. * His nausea and vomiting seems to be better. * Symptomatic management per primary team * Epogen TIW prn * Dose medications for renal function * Resume by mouth antihypertensive meds Subjective Date of service: 09/29/19 Principal diagnosis: DKA,ESRD Interval history: resting in bed today Objective - Exam Narrative Exam: General appearance: Present: no acute distress, well-nourished - EENT Eyes: Present: PERRL, EOM intact - Neck Neck: Present: supple, normal ROM - Respiratory Respiratory effort: normal Respiratory: bilateral: diminished, negative: rales, rhonchi, wheezing - Cardiovascular Rhythm: regular Heart Sounds: Present: S1 & S2 - Extremities Extremities: no ischemia, No edema - Abdominal General gastrointestinal: soft, non-tender, non-distended, normal bowel sounds - Integumentary Integumentary: Present: clear, warm - Psychiatric Psychiatric: appropriate mood/affect, cooperative - Neurologic Neurologic: CNII-XII intact, moves all extremities - Vital Signs Vital signs: Vital Signs - 12hr 09/29/19 09/29/19 09/29/19 05:41 06:41 09:05 Temperature 97.8 F Pulse Rate 86 92 H Pulse Rate [ Anterior Bilateral] Respiratory 17 Rate Respiratory Rate [Anterior Bilateral] Blood Pressure 122/73 123/75 O2 Sat by Pulse 96 94 Oximetry 09/29/19 09/29/19 09/29/19 09:20 11:41 12:49 Temperature 97.3 F L 98.1 F Pulse Rate 89 101 H Pulse Rate [ 77 Anterior Bilateral] Respiratory 20 18 Rate Respiratory 18 Rate [Anterior Bilateral] Blood Pressure 121/75 143/85 O2 Sat by Pulse 90 Oximetry 09/29/19 12:59 Temperature Pulse Rate 95 H Pulse Rate [ Anterior Bilateral] Respiratory Rate Respiratory Rate [Anterior Bilateral] Blood Pressure 146/83 O2 Sat by Pulse Oximetry - Lab 09/29/19 10:40 09/27/19 05:12 Most recent lab results Calcium 9.1 mg/dL (8.4-10.2) 09/27/19 05:12 Phosphorus 2.90 mg/dL (2.5-4.5) 09/26/19 10:05 Magnesium 2.00 mg/dL (1.7-2.3) 09/26/19 10:05 Medications & Allergies - Medications Allergies/Adverse Reactions: Allergies cefazolin [From Anc] Allergy (Verified 07/21/18 13:02) Vomiting shellfish derived Allergy (Verified 06/08/18 15:09) Anaphylaxis iodine Adverse Reaction (Severe, Verified 06/08/18 15:09) Vomiting IV dye Adverse Reaction (Severe, Uncoded 04/28/18 08:49) Vomiting Home Medications: Home Medications Medication Instructions Recorded Confirmed Last Taken Type Insulin Regular, Human [Novolin R] 3 - 5 unit SQ TID 06/05/19 09/27/19 08/12/19 History Calcium Acetate [Phoslo] 1,334 mg PO TIDWM capsule 06/13/19 09/27/19 08/12/19 Rx Insulin Glargine [Lantus VIAL] 20 units SUB-Q QHS 30 Days units 06/13/19 09/27/19 08/12/19 Rx Losartan [Cozaar] 50 mg PO QDAY #30 tablet 06/13/19 09/27/19 08/12/19 Rx amLODIPine 10 mg PO DAILY tablet 06/13/19 09/27/19 09/25/19 Rx 10 mg cloNIDine [Catapres] 0.3 mg PO Q12HR tablet 06/13/19 09/27/19 09/26/19 14:00 Rx hydrALAZINE [Apresoline TAB] 25 mg PO Q8HR #30 tablet 06/13/19 09/27/19 09/25/19 07:00 Rx Metoclopramide [Reglan TAB] 10 mg PO TID PRN #20 tab 06/23/19 09/27/19 08/12/19 Rx Dicyclomine [Bentyl] 20 mg PO QID PRN #20 tablet 08/13/19 09/27/19 Unknown Rx Metoclopramide [Reglan] 10 mg PO TID PRN #20 tab 08/13/19 09/27/19 Unknown Rx Active Medications: Generic Name Dose Route Start Last Admin Trade Name Freq PRN Reason Stop Dose Admin Albuterol 2.5 mg 09/28/19 09:45 Proventil IH Q4HRT PRN Shortness Of Breath Albuterol/Ipratropium 1 ampul 09/28/19 14:00 09/29/19 09:04 Duoneb *Not For Prn Use* IH 1 ampul TIDRT SANDRINE Administration Amlodipine Besylate 10 mg 09/26/19 16:00 09/28/19 09:54 Amlodipine PO 10 mg DAILY SANDRINE Administration Calcium Acetate 1,334 mg 09/26/19 17:00 09/29/19 12:45 Phoslo PO Not Given TIDWM [facility] Clonidine HCl 0.3 mg 09/26/19 16:00 09/29/19 12:48 Catapres PO Not Given Q12HR [facility] Dicyclomine HCl 20 mg 09/26/19 15:37 Bentyl PO QID PRN ABDOMINAL PAIN Diphenhydramine HCl 25 mg 09/27/19 22:55 09/27/19 23:37 Benadryl PO 25 mg QHS PRN Administration Sleep Heparin Sodium (Porcine) 5,000 unit 09/26/19 22:00 09/28/19 22:23 Heparin SUB-Q 5,000 unit Q12HR [facility] Administration Hydralazine HCl 25 mg 09/26/19 16:00 09/29/19 06:41 Apresoline PO 25 mg Q8HR [facility] Administration Hydromorphone HCl 0.5 mg 09/26/19 18:37 09/27/19 09:18 Dilaudid IV 0.5 mg Q3H PRN Administration Pain , Severe (7-10) Cefepime HCl 1 gm in 100 mls @ 200 mls/hr 09/26/19 20:00 09/28/19 21:50 Cefepime/Ns 1 Gm/100 Ml IV 09/30/19 20:29 200 mls/hr Q24H [facility] Administration Protocol Insulin Glargine 22 units 09/29/19 08:20 Lantus SUB-Q QHS [facility] Insulin Human Lispro 0 unit 09/27/19 11:30 09/29/19 12:43 Humalog SUB-Q 6 unit Q6HR [facility] Administration Protocol Insulin Human Lispro 8 unit 09/29/19 07:30 09/29/19 12:41 Humalog SUB-Q 8 unit AC SANDRINE Administration Losartan Potassium 50 mg 09/26/19 16:00 09/28/19 09:52 Cozaar PO 50 mg QDAY SAN[facility]INE Administration Metoclopramide HCl 10 mg 09/26/19 15:37 09/27/19 09:17 Reglan PO 10 mg TID PRN Administration Nausea Metoclopramide HCl 5 mg 09/27/19 12:00 09/29/19 12:42 Reglan IV Not Given Q6HR [facility] Ondansetron HCl 4 mg 09/27/19 09:58 Zofran IV Q8H PRN Nausea And Vomiting
[2019-09-29] MEDS: HEPARIN 5,000 UNIT/1 ML VIAL SUB-Q SCH (17:08)
[2019-09-29] MEDS: LOSARTAN 50 MG TAB PO SCH (17:18)
[2019-09-29] MEDS: amLODIPine 10 MG TAB PO SCH (17:19)
--- NOTE | 2019-09-29 18:11 | Discharge Summary ---
Providers - Providers Date of Admission: 09/26/19 09:45 Date of discharge: 09/29/19 Attending physician: ESTER DURAN 09/26/19 10:12 Consult to Physician [CONS] Routine Comment: Consulting Provider: CLARK KAN Physician Instructions: Reason For Exam: esrd Primary care physician: COMPLIANCE REVIEW OFFICER Hospitalization Reason for admission: worsening shortness of breath/DKA/community-acquired pneumonia Condition: Fair Pertinent studies: VQ scan; low probability for PE Chest x-ray 09/26/2019; Patchy airspace opacities throughout both lungs Concerning for multifocal pneumonia Follow-up chest x-ray; 09/27/2019 Mild improvement that she bilateral pulmonary parenchymal opacities No new acute finding Hospital course: 38-year-old male patient with significant past medical history of diabetes mellitus, ESRD on hemodialysis, hypertension was admitted through emergency room with complaints of shortness of breath. Patient states she was having dialysis became acutely short of breath. Patient states his shortness of breath is better with rest and worse with exertion. Patient denies fever and chills. Patient denies cough. Initial evaluation was consistent with community-acquired pneumonia, diabetic ketoacidosis, admitted to ICU, initiated DKA protocol, blood sugars protocol reasonable control, transfer to floor, medications optimized, evaluated by nephrology, received HD per schedule Today patient is comfortable no new complaints vital signs stable Symptoms significantly improved, cultures negative to date, hemodynamically and clinically stable at discharge Discharge diagnosis: -- DKA (diabetic ketoacidoses) Current Visit: Yes Status: Acute DKA protocol, resolved Insulin drip-D/c'd Frequent accuchecks SSC,ADA diet Long acting Insulin --History of diabetes mellitus; insulin-dependent Moderate control , Accu-Chek sliding scale coverage ADA diet and insulin Diabetic education, nutrition education Strongly advised to comply with medications diet exercises. -- Sepsis :Due to Pneumonia Leukocytosis,tachycardia,Pneumonia and hypothermia --Community-acquired pneumonia: Significantly improved, received cefepime Cultures negative, DC on oral Ceftin -- ESRD (end stage renal disease) on dialysis Current Visit: Yes Status: Acute . Cont HD per schedule Nephrology following -- HTN (hypertension) Current Visit: Yes Status: Chronic Cont antihypertensives.PRN meds, -- DVT prophylaxis Current Visit: No Status: Acute On Heparin Disposition: DC-30 STILL A PATIENT Time spent for discharge: 34 min Core Measure Documentation - Palliative Care Palliative Care/ Comfort Measures: Not Applicable - Core Measures Any of the following diagnoses?: none Exam - Constitutional Vitals: Temp Pulse Resp BP Pulse Ox 97.0 F L 107 H 20 149/86 93 09/29/19 17:31 09/29/19 17:31 09/29/19 17:31 09/29/19 17:31 09/29/19 17:31 General appearance: Present: no acute distress, well-nourished - EENT Eyes: Present: PERRL, EOM intact - Neck Neck: Present: supple, normal ROM - Respiratory Respiratory effort: normal Respiratory: bilateral: diminished, negative: rales, rhonchi, wheezing - Cardiovascular Rhythm: regular Heart Sounds: Present: S1 & S2 - Extremities Extremities: no ischemia, No edema - Abdominal General gastrointestinal: Present: soft, non-tender, non-distended, normal bowel sounds - Integumentary Integumentary: Present: clear, warm - Musculoskeletal Musculoskeletal: strength equal bilaterally - Psychiatric Psychiatric: appropriate mood/affect, cooperative - Neurologic Neurologic: moves all extremities Plan Activity: advance as tolerated Diet: diabetic, renal Additional Instructions: Follow renal, HD per schedule. Advised exercise as tolerated and weight reduction. Advised to comply with medications, diet and follow-up visits Follow up with: PRIMARY CARE, [Primary Care Provider] - 7 Days ROMELIA MARCELO MD [Staff Physician] - 7 Days Prescriptions: cefUROXime [Ceftin] 500 mg PO Q12H #10 tablet Insulin Glargine [Lantus VIAL] 22 units SUB-Q QHS 30 Days units
[2019-09-29 20:46] VITALS: BP 147/93
== END 2019-09-29 21:35 | disposition home or self-care (01) | DRG 871 ==
LOC: ED 07:18 → 3A 09:45 → CC1 10:09 → IMCU 09-27 19:17 → 3A 09-28 20:41
PROVIDERS: ADMIT Internal Medicine; ATTEND Internal Medicine
PROC: 5A1D70Z Performance of Urinary Filtration, Intermittent, Less than 6 Hours Per Day (ICD-10-PCS; principal; 2019-09-26)
PROC: 5A1D70Z Performance of Urinary Filtration, Intermittent, Less than 6 Hours Per Day (ICD-10-PCS; 2019-09-28)
PROC: 5A1D70Z Performance of Urinary Filtration, Intermittent, Less than 6 Hours Per Day (ICD-10-PCS; 2019-09-29)
DX: A41.9 Sepsis, unspecified organism (principal); E10.10 Type 1 diabetes mellitus with ketoacidosis without coma; N18.6 End stage renal disease; J96.01 Acute respiratory failure with hypoxia; J18.9 Pneumonia, unspecified organism; I12.0 Hypertensive chronic kidney disease with stage 5 chronic kidney disease or end stage renal disease; N25.81 Secondary hyperparathyroidism of renal origin; E10.43 Type 1 diabetes mellitus with diabetic autonomic (poly)neuropathy; K31.84 Gastroparesis; D63.1 Anemia in chronic kidney disease; R79.89 Other specified abnormal findings of blood chemistry; E10.22 Type 1 diabetes mellitus with diabetic chronic kidney disease; G43.909 Migraine, unspecified, not intractable, without status migrainosus; I25.2 Old myocardial infarction; Z86.711 Personal history of pulmonary embolism; Z99.2 Dependence on renal dialysis; Z88.8 Allergy status to other drugs, medicaments and biological substances; Z91.013 Allergy to seafood; Z79.4 Long term (current) use of insulin; Z79.899 Other long term (current) drug therapy; Z89.421 Acquired absence of other right toe(s); Z91.041 Radiographic dye allergy status; Z86.73 Personal history of transient ischemic attack (TIA), and cerebral infarction without residual deficits; Z87.891 Personal history of nicotine dependence
CPT/HCPCS: 36415; 71045; 78582; 80048; 80053; 80061; 80074; 82010; 82550; 82553; 82805; 82962; 83735; 84100; 84484; 85025; 87040; 93005; 93010; 94640; 94760; 96374; G0378; A9540; A9558; J0692; J1170; J1644; J1815; J1956; J2405; J2765; J7030; J7050